=== PATIENT | female | born 1945 | race Caucasian/White ===

== ENCOUNTER → 2017-08-01 08:54 | Outpatient (CLI) | payer MEDICARE, OTHER, SELFPAY ==
[2017-08-01 10:56] LABS: Absolute Lymphocyte Count 1.67 X10^3/ul (0.83-4.51); Basophil# 0.05 X10^3/uL; Basophil% 0.9 % (0-1); Eosinophils% 3.6 % (0-5); Hematocrit 45.2 % (37-47); Hemoglobin 14.2 g/dl (12.0-15.0); Lymphocyte # 1.67 X10^3/ul (4.0); Lymphocyte % 29.9 % (19-41); Mean Corp Hgb Conc 31.4 g/gl (32-36); Mean Corpuscular Hgb 30.4 pg (27.0-32.0); Mean Corpuscular Volume 96.8 fL (81-99); Mean Platelet Vol. 11.3 fl (6.2-12.0); Monocyte# 0.61 X10^3/uL; Monocyte% 10.9 % (0-10); Neutrophil # 3.03 X10^3/uL (2.7-7.7); Neutrophil % 54.2 % (47-70); POSITIVE COUNT NO; POSITIVE DIFFERENTIAL NO; POSITIVE MORPHOLOGY NO; Platelet Count 269 K/mm3 (150-450); RBC Distribution Width CV 14.2 % (11.6-14.6); RBC Distribution Width SD 49.3 fl (35.1-43.9); Red Blood Count 4.67 M/mm3 (4.2-5.4); White Blood Count 5.6 K/mm3 (4.4-11.0)
[2017-08-01 11:07] LABS: ALB/GLOB Ratio 0.7 RATIO (0.9-2.4); AST(SGOT) 29 U/L (15-37); Alanine Aminotransfer ALT/SGPT 35 U/L (13-56); Albumin, Serum 3.2 g/dL (3.2-5.0); Alkaline Phosphatase 83 U/L (45-117); Anion Gap 9 (5-15); BUN 16 mg/dL (7-18); BUN/Creat Ratio 17.4 RATIO (10-20); Chloride 102 mmol/L (98-107); Creatinine, Serum 0.92 mg/dL (0.55-1.02); EST Glomerular Filtration Rate 64 mL/min (>60); Est Glom Filt Rate - Afr Amer 77 mL/min (>60); Globulin 4.3 g/dL (2.2-4.2); Glucose 160 mg/dL (74-106); Potassium 4.5 mmol/L (3.5-5.1); Protein, Total 7.5 g/dL (6.4-8.2); Sodium Level 140 mmol/L (136-145)
== END ==
PROVIDERS: Family Provider Family Medicine; PCP Family Medicine; Visit Provider Internal Medicine Rheumatology
DX: M06.4 Inflammatory polyarthropathy (principal); Z79.899 Other long term (current) drug therapy; M35.3 Polymyalgia rheumatica; I10 Essential (primary) hypertension; E03.9 Hypothyroidism, unspecified; J44.9 Chronic obstructive pulmonary disease, unspecified
CPT/HCPCS: 36415; 80053; 85025

== ENCOUNTER → 2017-10-08 14:45 | Outpatient (CLI) | payer MEDICARE, OTHER, SELFPAY ==
[2017-10-08 17:55] LABS: Absolute Lymphocyte Count 2.04 X10^3/ul (0.83-4.51); Absolute Neutrophil Count 4.5 X10^3/uL (2.0-7.7); Basophil# 0.04 X10^3/uL; Basophil% 0.6 % (0-1); Eosinophil# 0.19 X10^3/uL; Eosinophils% 2.6 % (0-5); Hematocrit 45.6 % (37-47); Hemoglobin 14.8 g/dl (12.0-15.0); Lymphocyte # 2.04 X10^3/ul (4.0); Lymphocyte % 28.3 % (19-41); Mean Corp Hgb Conc 32.5 g/gl (32-36); Mean Corpuscular Hgb 30.7 pg (27.0-32.0); Mean Corpuscular Volume 94.6 fL (81-99); Mean Platelet Vol. 11.9 fl (6.2-12.0); Monocyte# 0.43 X10^3/uL; Neutrophil # 4.51 X10^3/uL (2.7-7.7); Neutrophil % 62.4 % (47-70); Platelet Count 224 K/mm3 (150-450); RBC Distribution Width CV 14.1 % (11.6-14.6); RBC Distribution Width SD 47.8 fl (35.1-43.9); Red Blood Count 4.82 M/mm3 (4.2-5.4); White Blood Count 7.2 K/mm3 (4.4-11.0)
[2017-10-08 18:04] LABS: POSITIVE COUNT NO; POSITIVE DIFFERENTIAL NO; POSITIVE MORPHOLOGY NO
[2017-10-08 18:11] LABS: ALB/GLOB Ratio 0.8 RATIO (0.9-2.4); AST(SGOT) 37 U/L (15-37); Alanine Aminotransfer ALT/SGPT 50 U/L (13-56); Albumin, Serum 3.6 g/dL (3.2-5.0); Alkaline Phosphatase 93 U/L (45-117); Anion Gap 11 (5-15); BUN 16 mg/dL (7-18); Calcium,Total 9.2 mg/dL (8.5-10.1); Chloride 99 mmol/L (98-107); Creatinine, Serum 0.94 mg/dL (0.55-1.02); EST Glomerular Filtration Rate 62 mL/min (>60); Est Glom Filt Rate - Afr Amer 75 mL/min (>60); Globulin 4.7 g/dL (2.2-4.2); Glucose 167 mg/dL (74-106); Potassium 3.7 mmol/L (3.5-5.1); Protein, Total 8.3 g/dL (6.4-8.2); Sodium Level 138 mmol/L (136-145)
== END ==
PROVIDERS: Family Provider Family Medicine; PCP Family Medicine; Visit Provider Internal Medicine Rheumatology
DX: M06.4 Inflammatory polyarthropathy (principal); Z79.899 Other long term (current) drug therapy; M35.3 Polymyalgia rheumatica; I10 Essential (primary) hypertension; E03.9 Hypothyroidism, unspecified; J44.9 Chronic obstructive pulmonary disease, unspecified
CPT/HCPCS: 36415; 80053; 85025

== ENCOUNTER → 2017-10-16 10:15 | Outpatient (CLI) | payer MEDICARE, OTHER, SELFPAY ==
[2017-10-16 12:19] LABS: T4 Free Direct 1.44 ng/dL (0.76-1.46); Thyroid Stim Hormone (TSH) 0.43 uIU/mL (0.358-3.74)
== END ==
PROVIDERS: Family Provider Family Medicine; PCP Family Medicine; Visit Provider Family Medicine
DX: E03.9 Hypothyroidism, unspecified (principal)
CPT/HCPCS: 36415; 84439; 84443

== ENCOUNTER 2017-12-05 11:19 | Outpatient (RCR) | payer MEDICARE, OTHER, SELFPAY | END 2017-12-09 23:59 | LOC: DC 11:19 | PROVIDERS: Family Provider Family Medicine; PCP Family Medicine; Visit Provider Family Medicine | DX: E11.9 Type 2 diabetes mellitus without complications (principal); Z71.3 Dietary counseling and surveillance | CPT/HCPCS: 97802; G0108 ==

== ENCOUNTER → 2017-12-31 12:15 | Outpatient (CLI) | payer MEDICARE, OTHER, SELFPAY ==
[2017-12-31 15:30] LABS: ALB/GLOB Ratio 0.9 RATIO (0.9-2.4); AST(SGOT) 45 U/L (15-37); Alanine Aminotransfer ALT/SGPT 59 U/L (13-56); Albumin, Serum 3.7 g/dL (3.2-5.0); Alkaline Phosphatase 85 U/L (45-117); Anion Gap 10 (5-15); BUN 20 mg/dL (7-18); Calcium,Total 9.2 mg/dL (8.5-10.1); Chloride 100 mmol/L (98-107); Creatinine, Serum 0.91 mg/dL (0.55-1.02); EST Glomerular Filtration Rate 64 mL/min (>60); Est Glom Filt Rate - Afr Amer 78 mL/min (>60); Globulin 4.1 g/dL (2.2-4.2); Glucose 167 mg/dL (74-106); Potassium 3.9 mmol/L (3.5-5.1); Protein, Total 7.8 g/dL (6.4-8.2); Sodium Level 137 mmol/L (136-145)
[2017-12-31 15:59] LABS: Hematocrit 46.7 % (37-47); Hemoglobin 14.7 g/dl (12.0-15.0); Mean Corp Hgb Conc 31.5 g/gl (32-36); Mean Corpuscular Hgb 30.4 pg (27.0-32.0); Mean Corpuscular Volume 96.7 fL (81-99); Mean Platelet Vol. 11.5 fl (6.2-12.0); POSITIVE DIFFERENTIAL NO; Platelet Count 198 K/mm3 (150-450); RBC Distribution Width CV 13.9 % (11.6-14.6); RBC Distribution Width SD 48.8 fl (35.1-43.9); Red Blood Count 4.83 M/mm3 (4.2-5.4); White Blood Count 7.2 K/mm3 (4.4-11.0)
[2017-12-31 16:00] LABS: Absolute Lymphocyte Count 1.93 X10^3/ul (0.83-4.51); Absolute Neutrophil Count 4.3 X10^3/uL (2.0-7.7); Basophil# 0.05 X10^3/uL; Basophil% 0.7 % (0-1); Eosinophils% 4.1 % (0-5); Lymphocyte # 1.93 X10^3/ul (4.0); Lymphocyte % 26.7 % (19-41); Monocyte# 0.62 X10^3/uL; Monocyte% 8.6 % (0-10); Neutrophil # 4.32 X10^3/uL (2.7-7.7); Neutrophil % 59.8 % (47-70); POSITIVE COUNT NO; POSITIVE MORPHOLOGY NO
== END ==
PROVIDERS: Family Provider Family Medicine; PCP Family Medicine; Visit Provider Internal Medicine Rheumatology
DX: M06.4 Inflammatory polyarthropathy (principal); M35.3 Polymyalgia rheumatica; I10 Essential (primary) hypertension; E03.9 Hypothyroidism, unspecified; J44.9 Chronic obstructive pulmonary disease, unspecified; Z79.899 Other long term (current) drug therapy
CPT/HCPCS: 36415; 80053; 85025

== ENCOUNTER 2018-01-01 08:09 | Outpatient (RCR) | payer MEDICARE, OTHER, SELFPAY | END 2018-01-19 23:59 | LOC: DC 08:09 | PROVIDERS: Family Provider Family Medicine; PCP Family Medicine; Visit Provider Family Medicine | DX: E11.9 Type 2 diabetes mellitus without complications (principal); Z71.3 Dietary counseling and surveillance ==

== ENCOUNTER 2018-01-23 08:42 | Outpatient (RCR) | payer MEDICARE, OTHER, SELFPAY | END 2018-02-19 23:59 | LOC: DC 08:42 | PROVIDERS: Family Provider Family Medicine; PCP Family Medicine; Visit Provider Family Medicine | DX: E11.9 Type 2 diabetes mellitus without complications (principal); Z71.3 Dietary counseling and surveillance ==

== ENCOUNTER → 2018-02-03 10:56 | Outpatient (CLI) | payer MEDICARE, OTHER, SELFPAY ==
[2018-02-03 12:44] LABS: ALB/GLOB Ratio 0.8 RATIO (0.9-2.4); AST(SGOT) 43 U/L (15-37); Alanine Aminotransfer ALT/SGPT 46 U/L (13-56); Albumin, Serum 3.5 g/dL (3.2-5.0); Alkaline Phosphatase 84 U/L (45-117); Anion Gap 8 (5-15); BUN 20 mg/dL (7-18); BUN/Creat Ratio 21.8 RATIO (10-20); Calcium,Total 9.2 mg/dL (8.5-10.1); Chloride 101 mmol/L (98-107); Creatinine, Serum 0.92 mg/dL (0.55-1.02); EST Glomerular Filtration Rate 64 mL/min (>60); Est Glom Filt Rate - Afr Amer 77 mL/min (>60); Globulin 4.2 g/dL (2.2-4.2); Glucose 89 mg/dL (74-106); Potassium 4.1 mmol/L (3.5-5.1); Protein, Total 7.7 g/dL (6.4-8.2); Sodium Level 140 mmol/L (136-145)
== END ==
PROVIDERS: PCP Family Medicine; Visit Provider Internal Medicine Rheumatology
DX: M06.4 Inflammatory polyarthropathy (principal); Z79.899 Other long term (current) drug therapy; M35.3 Polymyalgia rheumatica; I10 Essential (primary) hypertension; E03.9 Hypothyroidism, unspecified; J44.9 Chronic obstructive pulmonary disease, unspecified
CPT/HCPCS: 36415; 80053

== ENCOUNTER 2018-02-26 09:59 | Outpatient (RCR) | payer MEDICARE, OTHER, SELFPAY | END 2018-03-21 23:59 | LOC: DC 09:59 | PROVIDERS: Family Provider Family Medicine; PCP Family Medicine; Visit Provider Family Medicine | DX: E11.9 Type 2 diabetes mellitus without complications (principal); Z71.3 Dietary counseling and surveillance ==

== ENCOUNTER → 2018-05-02 11:15 | Outpatient (CLI) | payer OTHER, SELFPAY ==
[2018-05-02 12:24] LABS: Absolute Lymphocyte Count 1.58 X10^3/ul (0.83-4.51); Absolute Neutrophil Count 5.4 X10^3/uL (2.0-7.7); Basophil# 0.04 X10^3/uL; Basophil% 0.5 % (0-1); Eosinophil# 0.29 X10^3/uL; Eosinophils% 3.6 % (0-5); Hematocrit 45.5 % (37-47); Hemoglobin 14.1 g/dl (12.0-15.0); Lymphocyte # 1.58 X10^3/ul (4.0); Lymphocyte % 19.8 % (19-41); Mean Corpuscular Hgb 30.3 pg (27.0-32.0); Mean Corpuscular Volume 97.8 fL (81-99); Mean Platelet Vol. 11.3 fl (6.2-12.0); Monocyte# 0.61 X10^3/uL; Monocyte% 7.7 % (0-10); Neutrophil # 5.43 X10^3/uL (2.7-7.7); Neutrophil % 68.1 % (47-70); Platelet Count 239 K/mm3 (150-450); RBC Distribution Width CV 14.2 % (11.6-14.6); RBC Distribution Width SD 49.3 fl (35.1-43.9); Red Blood Count 4.65 M/mm3 (4.2-5.4)
[2018-05-02 12:32] LABS: POSITIVE COUNT NO; POSITIVE DIFFERENTIAL NO; POSITIVE MORPHOLOGY NO
[2018-05-02 12:41] LABS: ALB/GLOB Ratio 0.9 RATIO (0.9-2.4); AST(SGOT) 45 U/L (15-37); Alanine Aminotransfer ALT/SGPT 55 U/L (13-56); Albumin, Serum 3.5 g/dL (3.2-5.0); Alkaline Phosphatase 85 U/L (45-117); Anion Gap 6 (5-15); BUN 17 mg/dL (7-18); BUN/Creat Ratio 18.6 RATIO (10-20); Calcium,Total 8.8 mg/dL (8.5-10.1); Chloride 100 mmol/L (98-107); Creatinine, Serum 0.91 mg/dL (0.55-1.02); EST Glomerular Filtration Rate 64 mL/min (>60); Est Glom Filt Rate - Afr Amer 78 mL/min (>60); Globulin 3.9 g/dL (2.2-4.2); Glucose 189 mg/dL (74-106); Potassium 4.4 mmol/L (3.5-5.1); Protein, Total 7.4 g/dL (6.4-8.2); Sodium Level 139 mmol/L (136-145)
== END ==
PROVIDERS: Family Provider Family Medicine; PCP Family Medicine; Visit Provider Internal Medicine Rheumatology
DX: M06.4 Inflammatory polyarthropathy (principal); Z79.899 Other long term (current) drug therapy; M35.3 Polymyalgia rheumatica; I10 Essential (primary) hypertension; E03.9 Hypothyroidism, unspecified; J44.9 Chronic obstructive pulmonary disease, unspecified
CPT/HCPCS: 36415; 80053; 85025

== ENCOUNTER → 2018-07-28 | Outpatient (CLI) | payer MEDICARE, OTHER, SELFPAY ==
[2018-07-28 12:42] LABS: Absolute Lymphocyte Count 2.21 X10^3/ul (0.83-4.51); Absolute Neutrophil Count 4.5 X10^3/uL (2.0-7.7); Basophil# 0.06 X10^3/uL; Basophil% 0.8 % (0-1); Eosinophil# 0.23 X10^3/uL; Eosinophils% 3.1 % (0-5); Hematocrit 47.4 % (37-47); Lymphocyte # 2.21 X10^3/ul (4.0); Lymphocyte % 29.3 % (19-41); Mean Corp Hgb Conc 31.6 g/gl (32-36); Mean Corpuscular Hgb 30.8 pg (27.0-32.0); Mean Corpuscular Volume 97.3 fL (81-99); Monocyte# 0.57 X10^3/uL; Monocyte% 7.6 % (0-10); Neutrophil # 4.45 X10^3/uL (2.7-7.7); Neutrophil % 59.1 % (47-70); Platelet Count 212 K/mm3 (150-450); RBC Distribution Width CV 13.7 % (11.6-14.6); RBC Distribution Width SD 48.5 fl (35.1-43.9); Red Blood Count 4.87 M/mm3 (4.2-5.4); White Blood Count 7.5 K/mm3 (4.4-11.0)
[2018-07-28 12:51] LABS: POSITIVE COUNT NO; POSITIVE DIFFERENTIAL NO; POSITIVE MORPHOLOGY NO
[2018-07-28 13:02] LABS: Hemoglobin A1c 6.9 % (4.2-6.3)
[2018-07-28 13:05] LABS: AST(SGOT) 42 U/L (15-37); Alanine Aminotransfer ALT/SGPT 63 U/L (13-56); Albumin, Serum 3.9 g/dL (3.2-5.0); Alkaline Phosphatase 89 U/L (45-117); Anion Gap 7 (5-15); BUN 20 mg/dL (7-18); BUN/Creat Ratio 24.2 RATIO (10-20); Chloride 102 mmol/L (98-107); Cholesterol 206 mg/dL (200); Creatinine, Serum 0.83 mg/dL (0.55-1.02); EST Glomerular Filtration Rate 72 mL/min (>60); Est Glom Filt Rate - Afr Amer 87 mL/min (>60); Glucose 129 mg/dL (74-106); High Density Lipoprotein 59 mg/dL; Potassium 4.3 mmol/L (3.5-5.1); Protein, Total 7.9 g/dL (6.4-8.2); Sodium Level 141 mmol/L (136-145); T4 Free Direct 1.57 ng/dL (0.76-1.46); Thyroid Stim Hormone (TSH) 0.64 uIU/mL (0.358-3.74); Triglycerides 194 mg/dL; Very Low Density Lipoprotein 39 mg/dL (5-40)
[2018-07-28 13:08] LABS: T3 Total - Triiodothyronine 0.88 ng/mL (0.6-1.81)
[2018-07-28 13:24] LABS: Microalbumin,Random Urine 5.9 mg/L (NO RANGE EST.)
== END | disposition home or self-care (01) ==
LOC: BFHLAB 09:17
PROVIDERS: Family Provider Family Medicine; PCP Family Medicine; Visit Provider Internal Medicine Rheumatology
DX: E11.9 Type 2 diabetes mellitus without complications (principal); I10 Essential (primary) hypertension; E03.9 Hypothyroidism, unspecified; M06.4 Inflammatory polyarthropathy; M35.3 Polymyalgia rheumatica; J44.9 Chronic obstructive pulmonary disease, unspecified; Z51.81 Encounter for therapeutic drug level monitoring; Z79.899 Other long term (current) drug therapy
CPT/HCPCS: 36415; 80053; 80061; 82043; 82570; 83036; 84439; 84443; 84480; 85025

== ENCOUNTER → 2018-08-25 08:27 | Outpatient (CLI) | payer MEDICARE, OTHER, SELFPAY ==
--- NOTE | 2018-08-25 08:29 | US_ITS ---
STUDY: ABDOMINAL ULTRASOUND - RIGHT UPPER QUADRANT REASON FOR VISIT: Female, 73 years old. Elevated liver enzymes. TECHNIQUE: Ultrasound evaluation of the right upper quadrant was performed with real-time and static fuchs-scale imaging. TECHNICAL QUALITY: Adequate. COMPARISON: None. FINDINGS: Liver: The liver measures 14.6 cm. There is increased echogenicity consistent with fatty infiltration. The bile ducts are within normal limits. There is hepatic color flow. The direction of portal flow is hepatopetal. There is no demonstrated mass lesion. Gallbladder: There is a 7.3 mm length echogenic nonshadowing focus within the dependent gallbladder lumen on the submitted image 94. This finding probably represents layering sludge/debris. There is also a focal, 3.4 mm, echogenic nonshadowing focus associated with the deep gallbladder wall seen on image 66. The gallbladder wall measures 2.8 mm. There is a negative sonographic Nieto's sign. There is no pericholecystic fluid. There are no gallstones. Common Bile Duct (C.B.D.): The common bile duct measures 3.8 mm. Pancreas: Normal size of the head, body and tail of the pancreas. There is normal echogenicity of the pancreas. There is no demonstrated pancreatic mass or cyst. Right Kidney: Normal size of the right kidney. The right kidney measures 10.3 x 4.8 x 3.6 cm. Normal renal cortex. The right cortex measures 1.0 cm. There is no demonstrated renal mass or cyst. There is no right hydronephrosis. US/Liver IMPRESSION: The linear echogenic nonshadowing focus within the dependent gallbladder lumen is most consistent with layering sludge/debris. Additionally, the focal 3.4 mm echogenic nonshadowing focus associated with the deep gallbladder wall may also represent dependent sludge/debris although a small polyp cannot be excluded. No sonographic criteria of acute cholecystitis. Diffuse increased hepatic echogenicity without sonographically evident discrete mass or cyst. This is a nonspecific finding, however most often due to fatty infiltration. Electronically Signed: Fady Sanz MD at 14:01 EDT , Service support ,
== END ==
PROVIDERS: Family Provider Family Medicine; PCP Family Medicine; Referring Provider Internal Medicine Rheumatology; Visit Provider Internal Medicine Rheumatology
DX: M35.3 Polymyalgia rheumatica (principal); Z79.899 Other long term (current) drug therapy; M06.4 Inflammatory polyarthropathy
CPT/HCPCS: 76705

== ENCOUNTER → 2018-08-29 10:05 | Outpatient (CLI) | payer MEDICARE, OTHER, SELFPAY ==
[2018-08-29 12:31] LABS: ALB/GLOB Ratio 0.8 RATIO (0.9-2.4); AST(SGOT) 37 U/L (15-37); Alanine Aminotransfer ALT/SGPT 60 U/L (13-56); Albumin, Serum 3.5 g/dL (3.2-5.0); Alkaline Phosphatase 89 U/L (45-117); Anion Gap 9 (5-15); BUN 28 mg/dL (7-18); BUN/Creat Ratio 27.2 RATIO (10-20); Chloride 102 mmol/L (98-107); Creatinine, Serum 1.03 mg/dL (0.55-1.02); EST Glomerular Filtration Rate 56 mL/min (>60); Est Glom Filt Rate - Afr Amer 67 mL/min (>60); Globulin 4.2 g/dL (2.2-4.2); Glucose 257 mg/dL (74-106); Potassium 3.4 mmol/L (3.5-5.1); Protein, Total 7.7 g/dL (6.4-8.2); Sodium Level 139 mmol/L (136-145)
== END ==
PROVIDERS: Family Provider Family Medicine; PCP Family Medicine; Visit Provider Internal Medicine Rheumatology
DX: M06.4 Inflammatory polyarthropathy (principal); Z79.899 Other long term (current) drug therapy; M35.3 Polymyalgia rheumatica; I10 Essential (primary) hypertension; E03.9 Hypothyroidism, unspecified; J44.9 Chronic obstructive pulmonary disease, unspecified
CPT/HCPCS: 36415; 80053

== ENCOUNTER → 2018-09-09 14:19 | Outpatient (CLI) | payer MEDICARE, OTHER, SELFPAY ==
--- NOTE | 2018-09-09 14:22 | BI_ITS ---
MAMMOGRAPHY - BILATERAL SCREENING REASON FOR EXAM: Female, 73 years old. Routine annual screening examination. PERTINENT HISTORY: Non-contributory. History of prior bilateral aspirations and stereotactic biopsy TECHNIQUE: Digital bilateral breast selena (3D mammographic acquisition) in the CC and MLO projections. 2-D mediolateral oblique (MLO) and craniocaudad (CC) views of both breasts were obtained. CAD: Full Field Digital Mammography with Computer Added Detection was performed. COMPARISON: Comparison is made with prior study dated November 24, 2015 and November 15, 2014. FINDINGS: Breast Composition: The breasts are heterogeneously dense, which may obscure small masses. There are no dominant masses or suspicious calcifications. Stable small bilateral axillary lymph nodes. No other significant abnormalities are identified. There has been no significant change since the prior study. BI/SCREENING MAMM (CAD), BILAT IMPRESSION: Stable bilateral screening mammogram. Yearly follow-up mammogram recommended. (A) ASSESSMENT CATEGORY: BIRADS Category 2: Benign. A letter regarding these results will be sent to the patient by the facility within 30 days. Approximately 10% of breast cancers are not detected by mammography. A normal mammogram should not delay biopsy of a clinically suspicious abnormality. [id number] Electronically Signed: Terrell Mars, at 7:54 EDT , Service support ,
--- NOTE | 2018-09-09 14:25 | BD_ITS ---
STUDY: DUAL ENERGY X-RAY ABSORPTIOMETRY / DXA REASON FOR EXAM: Female, 73 years old. Early menopause. Loss of height. TECHNIQUE: Bone Mineral Density (BMD) measurements of lumbar spine and bilateral hips were obtained. COMPARISON: Comparison is made with prior study dated April 19, 2015. FINDINGS: Lumbar Spine (L1-L4): g/cm2 (1.089) / T-score (-0.7) / Z-score (1.1) Findings are suggestive of normal bone density with a low fracture risk. Left Femur Total: g/cm2 (0.955) / T-score (-0.4) / Z-score (1.3) Left Femoral Neck: g/cm2 (0.911) / T-score (-0.9) / Z-score (1.0) Right Femur Total: g/cm2 (0.937) / T-score (-0.6) / Z-score (1.1) Right Femoral Neck: g/cm2 (0.857) / T-score (-1.3) / Z-score (0.6) The T-Scores on the most recent prior examination were: Lumbar Spine (L1-L4): There has been worsening of bone density since the previous examination. Left Femur Total: which represents a worsening of 4.9%. Right Femur Total: which represents a worsening of 8%. BD/Dexa Bone Density Study IMPRESSION: The patient is considered osteopenic as outlined below according to World Stephan Organization (WHO) criteria with a low fracture risk. There has been worsening of bone density since the previous examination. Reference Information: The T-score is the number of standard deviations above or below the standard which is normal for young adults at their peak bone mineral density. The World Health Organization (WHO) interprets the T-scores as follows: Above -1 Normal bone density Between -1 and -2.5 Osteopenia Equal to / or below -2.5 Osteoporosis As a practical clinical guideline, osteopenia may be graded as follows: Mild -1 through -1.5 Moderate -1.6 through -2.0 Severe -2.1 through -2.4 The Z-score is the number of standard deviations above or below age-matched controls. A Z-score of less than -1.5 would be considered abnormal. References: 1. NIH Osteoporosis and Related Bone Diseases http://www.osteo.org 2. International Society for Clinical Densitometry http://www.iscd.org 3. National Osteoporosis Foundation http://www.nof.org Electronically Signed: Terrell Mars, at 15:07 EDT , Service support ,
== END ==
PROVIDERS: Family Provider Family Medicine; PCP Family Medicine; Referring Provider Family Medicine; Visit Provider Family Medicine
DX: Z12.31 Encounter for screening mammogram for malignant neoplasm of breast (principal); Z78.0 Asymptomatic menopausal state; Z13.820 Encounter for screening for osteoporosis
CPT/HCPCS: 77063; 77067; 77080

== ENCOUNTER → 2018-12-01 09:19 | Outpatient (CLI) | payer MEDICARE, OTHER, SELFPAY ==
[2018-12-01 12:30] LABS: Absolute Lymphocyte Count 1.76 X10^3/uL (0.83-4.51); Absolute Neutrophil Count 3.4 X10^3/uL (2.0-7.7); Basophil# 0.07 X10^3/uL; Basophil% 1.2 % (0-1); Eosinophil# 0.15 X10^3/uL; Eosinophils% 2.5 % (0-5); Hematocrit 46.6 % (37-47); Hemoglobin 14.8 g/dL (12.0-15.0); Lymphocyte # 1.76 X10^3/ul (4.0); Lymphocyte % 29.3 % (19-41); Mean Corp Hgb Conc 31.8 g/dL (32-36); Mean Corpuscular Hgb 29.3 pg (27.0-32.0); Mean Corpuscular Volume 92.3 fL (81-99); Mean Platelet Vol. 12.3 fl (6.2-12.0); Monocyte# 0.56 X10^3/uL; Monocyte% 9.3 % (0-10); NRBC Flagged by Analyzer 0 % (0-5); Neutrophil # 3.44 X10^3/uL (2.7-7.7); Neutrophil % 57.4 % (47-70); Platelet Count 196 K/mm3 (150-450); RBC Distribution Width CV 12.8 % (11.6-14.6); RBC Distribution Width SD 43.4 fl (35.1-43.9); Red Blood Count 5.05 M/mm3 (4.2-5.4)
[2018-12-01 12:59] LABS: AST(SGOT) 25 U/L (15-37); Alanine Aminotransfer ALT/SGPT 27 U/L (13-56); Albumin, Serum 3.9 g/dL (3.2-5.0); Alkaline Phosphatase 79 U/L (45-117); Anion Gap 7 (5-15); BUN 15 mg/dL (7-18); BUN/Creat Ratio 16.2 RATIO (10-20); Chloride 103 mmol/L (98-107); Creatinine, Serum 0.93 mg/dL (0.55-1.02); EST Glomerular Filtration Rate 63 mL/min (>60); Est Glom Filt Rate - Afr Amer 76 mL/min (>60); Globulin 3.9 g/dL (2.2-4.2); Glucose 93 mg/dL (74-106); Potassium 3.4 mmol/L (3.5-5.1); Protein, Total 7.8 g/dL (6.4-8.2); Sodium Level 138 mmol/L (136-145)
== END ==
PROVIDERS: PCP Family Medicine; Visit Provider Internal Medicine Rheumatology
DX: M06.4 Inflammatory polyarthropathy (principal); Z79.899 Other long term (current) drug therapy; M35.3 Polymyalgia rheumatica; I10 Essential (primary) hypertension; E03.9 Hypothyroidism, unspecified; J44.9 Chronic obstructive pulmonary disease, unspecified
CPT/HCPCS: 36415; 80053; 85025

== ENCOUNTER → 2019-02-26 14:00 | Outpatient (CLI) | payer MEDICARE, OTHER, SELFPAY ==
[2019-02-26 15:40] LABS: Absolute Lymphocyte Count 2.23 X10^3/uL (0.83-4.51); Absolute Neutrophil Count 4.5 X10^3/uL (2.0-7.7); Basophil# 0.09 X10^3/uL; Basophil% 1.2 % (0-1); Eosinophil# 0.27 X10^3/uL; Eosinophils% 3.5 % (0-5); Hemoglobin 15.2 g/dL (12.0-15.0); Lymphocyte # 2.23 X10^3/ul (4.0); Lymphocyte % 28.8 % (19-41); Mean Corp Hgb Conc 31.7 g/dL (32-36); Mean Corpuscular Hgb 29.2 pg (27.0-32.0); Mean Corpuscular Volume 92.3 fL (81-99); Mean Platelet Vol. 11.7 fl (6.2-12.0); Monocyte% 7.8 % (0-10); NRBC Flagged by Analyzer 0 % (0-5); Neutrophil # 4.52 X10^3/uL (2.7-7.7); Neutrophil % 58.3 % (47-70); Platelet Count 230 K/mm3 (150-450); RBC Distribution Width CV 13.2 % (11.6-14.6); RBC Distribution Width SD 44.3 fl (35.1-43.9); White Blood Count 7.7 K/mm3 (4.4-11.0)
[2019-02-26 15:59] LABS: ALB/GLOB Ratio 0.9 RATIO (0.9-2.4); AST(SGOT) 21 U/L (15-37); Alanine Aminotransfer ALT/SGPT 26 U/L (13-56); Alkaline Phosphatase 75 U/L (45-117); Anion Gap 8 (5-15); BUN 25 mg/dL (7-18); BUN/Creat Ratio 25.3 RATIO (10-20); Calcium,Total 9.3 mg/dL (8.5-10.1); Chloride 100 mmol/L (98-107); Creatinine, Serum 0.99 mg/dL (0.55-1.02); EST Glomerular Filtration Rate 58 mL/min (>60); Est Glom Filt Rate - Afr Amer 71 mL/min (>60); Globulin 4.3 g/dL (2.2-4.2); Glucose 88 mg/dL (74-106); Potassium 3.5 mmol/L (3.5-5.1); Protein, Total 8.3 g/dL (6.4-8.2); Sodium Level 139 mmol/L (136-145)
== END ==
PROVIDERS: Family Provider Family Medicine; PCP Family Medicine; Visit Provider Internal Medicine Rheumatology
DX: M06.4 Inflammatory polyarthropathy (principal); M35.3 Polymyalgia rheumatica; K76.0 Fatty (change of) liver, not elsewhere classified; I10 Essential (primary) hypertension; E03.9 Hypothyroidism, unspecified; J44.9 Chronic obstructive pulmonary disease, unspecified
CPT/HCPCS: 36415; 80053; 85025

== ENCOUNTER → 2019-08-21 09:35 | Outpatient (CLI) | payer MEDICARE, OTHER, SELFPAY ==
[2019-08-21 12:55] LABS: Absolute Lymphocyte Count 1.73 X10^3/uL (0.83-4.51); Absolute Neutrophil Count 4.2 X10^3/uL (2.0-7.7); Basophil# 0.07 X10^3/uL; Eosinophils% 2.9 % (0-5); Hematocrit 49.2 % (37-47); Hemoglobin 15.3 g/dL (12.0-15.0); Lymphocyte # 1.73 X10^3/ul (4.0); Lymphocyte % 25.2 % (19-41); Mean Corp Hgb Conc 31.1 g/dL (32-36); Mean Corpuscular Hgb 28.5 pg (27.0-32.0); Mean Corpuscular Volume 91.6 fL (81-99); Mean Platelet Vol. 12.2 fl (6.2-12.0); Monocyte% 8.7 % (0-10); NRBC Flagged by Analyzer 0 % (0-5); Neutrophil # 4.24 X10^3/uL (2.7-7.7); Neutrophil % 61.8 % (47-70); Platelet Count 194 K/mm3 (150-450); RBC Distribution Width CV 13.2 % (11.6-14.6); Red Blood Count 5.37 M/mm3 (4.2-5.4); White Blood Count 6.9 K/mm3 (4.4-11.0)
[2019-08-21 13:11] LABS: ALB/GLOB Ratio 0.9 RATIO (0.9-2.4); AST(SGOT) 18 U/L (15-37); Alanine Aminotransfer ALT/SGPT 24 U/L (13-56); Albumin, Serum 3.7 g/dL (3.2-5.0); Alkaline Phosphatase 76 U/L (45-117); Anion Gap 6 (5-15); BUN 18 mg/dL (7-18); BUN/Creat Ratio 21.2 RATIO (10-20); Calcium,Total 9.3 mg/dL (8.5-10.1); Chloride 101 mmol/L (98-107); Creatinine, Serum 0.85 mg/dL (0.55-1.02); EST Glomerular Filtration Rate 69 mL/min (>60); Est Glom Filt Rate - Afr Amer 84 mL/min (>60); Globulin 4.1 g/dL (2.2-4.2); Glucose 97 mg/dL (74-106); Potassium 3.6 mmol/L (3.5-5.1); Protein, Total 7.8 g/dL (6.4-8.2); Sodium Level 137 mmol/L (136-145)
== END ==
PROVIDERS: PCP Family Medicine; Referring Provider Internal Medicine Rheumatology; Visit Provider Internal Medicine Rheumatology
DX: M06.4 Inflammatory polyarthropathy (principal); M35.3 Polymyalgia rheumatica; K76.0 Fatty (change of) liver, not elsewhere classified; I10 Essential (primary) hypertension; E03.9 Hypothyroidism, unspecified; J44.9 Chronic obstructive pulmonary disease, unspecified; M65.819 Other synovitis and tenosynovitis, unspecified shoulder
CPT/HCPCS: 36415; 80053; 85025

== ENCOUNTER → 2019-09-03 10:07 | Outpatient (CLI) | payer MEDICARE, OTHER, SELFPAY | PROVIDERS: PCP Family Medicine; Visit Provider Family Medicine | DX: N39.0 Urinary tract infection, site not specified (principal) | CPT/HCPCS: 87086; 87088 ==

== ENCOUNTER → 2019-09-23 08:41 | Outpatient (CLI) | payer MEDICARE, OTHER, SELFPAY ==
[2019-09-23 12:42] LABS: Absolute Lymphocyte Count 1.73 X10^3/uL (0.83-4.51); Absolute Neutrophil Count 3.3 X10^3/uL (2.0-7.7); Basophil# 0.06 X10^3/uL; Eosinophil# 0.21 X10^3/uL; Eosinophils% 3.6 % (0-5); Hemoglobin 15.2 g/dL (12.0-15.0); Lymphocyte # 1.73 X10^3/ul (4.0); Lymphocyte % 29.7 % (19-41); Mean Corpuscular Hgb 29.3 pg (27.0-32.0); Mean Corpuscular Volume 94.4 fL (81-99); Mean Platelet Vol. 12.4 fl (6.2-12.0); Monocyte# 0.53 X10^3/uL; Monocyte% 9.1 % (0-10); NRBC Flagged by Analyzer 0 % (0-5); Neutrophil # 3.28 X10^3/uL (2.7-7.7); Neutrophil % 56.4 % (47-70); Platelet Count 179 K/mm3 (150-450); RBC Distribution Width CV 13.2 % (11.6-14.6); RBC Distribution Width SD 46.1 fl (35.1-43.9); Red Blood Count 5.19 M/mm3 (4.2-5.4); White Blood Count 5.8 K/mm3 (4.4-11.0)
[2019-09-23 12:54] LABS: Hemoglobin A1c 5.7 % (3.8-5.6)
[2019-09-23 12:56] LABS: ALB/GLOB Ratio 0.9 RATIO (0.9-2.4); AST(SGOT) 20 U/L (15-37); Alanine Aminotransfer ALT/SGPT 25 U/L (13-56); Albumin, Serum 3.9 g/dL (3.2-5.0); Alkaline Phosphatase 70 U/L (45-117); Anion Gap 6 (5-15); BUN 19 mg/dL (7-18); BUN/Creat Ratio 19.8 RATIO (10-20); Calcium,Total 9.1 mg/dL (8.5-10.1); Chloride 102 mmol/L (98-107); Cholesterol 199 mg/dL (200); Creatinine, Serum 0.96 mg/dL (0.55-1.02); EST Glomerular Filtration Rate 60 mL/min (>60); Est Glom Filt Rate - Afr Amer 73 mL/min (>60); Globulin 4.5 g/dL (2.2-4.2); Glucose 107 mg/dL (74-106); High Density Lipoprotein 65 mg/dL; Potassium 4.2 mmol/L (3.5-5.1); Protein, Total 8.4 g/dL (6.4-8.2); Sodium Level 139 mmol/L (136-145); Thyroid Stim Hormone (TSH) 1.89 uIU/mL (0.358-3.74); Triglycerides 178 mg/dL; Very Low Density Lipoprotein 36 mg/dL (5-40)
[2019-09-23 13:15] LABS: Microalbumin,Random Urine 56.4 mg/L (NO RANGE EST.); Microalbumin:Creatinine Ratio 31.9 mg/g CRE (<30 mg/g CRE)
== END ==
PROVIDERS: PCP Family Medicine; Visit Provider Family Medicine
DX: E11.9 Type 2 diabetes mellitus without complications (principal); E03.9 Hypothyroidism, unspecified; I10 Essential (primary) hypertension; M06.9 Rheumatoid arthritis, unspecified
CPT/HCPCS: 36415; 80053; 80061; 82043; 82570; 83036; 84443; 85025

== ENCOUNTER → 2019-10-08 11:18 | Outpatient (CLI) | payer MEDICARE, OTHER, SELFPAY ==
--- NOTE | 2019-10-08 11:20 | BI_ITS ---
MAMMOGRAPHY - BILATERAL SCREENING REASON FOR EXAM: Female, 74 years old. Routine annual screening examination. PERTINENT HISTORY: Non-contributory. TECHNIQUE: Digital bilateral breast bharathi (3D mammographic acquisition) in the CC and MLO projections. 2-D mediolateral oblique (MLO) and craniocaudad (CC) views of both breasts were obtained. CAD: Full Field Digital Mammography with Computer Added Detection was performed. COMPARISON: Comparison is made with prior study dated September 09, 2018 and November 24, 2015. FINDINGS: Breast Composition: The breasts are heterogeneously dense, which may obscure small masses. There are no dominant masses or suspicious calcifications. Stable small benign-appearing bilateral axillary lymph nodes. No other significant abnormalities are identified. There has been no significant change since the prior study. BI/SCREEN MAMM (CAD) W/BHARATHI BILAT IMPRESSION: Stable bilateral screening mammogram. Yearly follow-up mammogram recommended. (A) ASSESSMENT CATEGORY: BIRADS Category 2: Benign. A letter regarding these results will be sent to the patient by the facility within 30 days. Approximately 10% of breast cancers are not detected by mammography. A normal mammogram should not delay biopsy of a clinically suspicious abnormality. [id number] Electronically Signed: Terrell Mars, at 12:27 EDT , Service support ,
== END ==
PROVIDERS: PCP Family Medicine; Referring Provider Family Medicine; Visit Provider Family Medicine
DX: Z12.31 Encounter for screening mammogram for malignant neoplasm of breast (principal)
CPT/HCPCS: 77063; 77067

== ENCOUNTER → 2020-01-15 08:49 | Outpatient (CLI) | payer MEDICARE, OTHER, SELFPAY ==
[2020-01-15 12:18] LABS: Uric Acid 8.2 mg/dL (2.6-6.0)
== END ==
PROVIDERS: PCP Family Medicine; Visit Provider Family Medicine
DX: M10.9 Gout, unspecified (principal)
CPT/HCPCS: 36415; 84550

== ENCOUNTER → 2020-01-29 10:09 | Outpatient (CLI) | payer MEDICARE, OTHER, SELFPAY ==
[2020-01-29 12:41] LABS: Uric Acid 6.7 mg/dL (2.6-6.0)
== END ==
PROVIDERS: PCP Family Medicine; Visit Provider Family Medicine
DX: M10.9 Gout, unspecified (principal); Z51.81 Encounter for therapeutic drug level monitoring
CPT/HCPCS: 36415; 84550

== ENCOUNTER → 2020-02-22 09:15 | Outpatient (CLI) | payer MEDICARE, OTHER, SELFPAY ==
[2020-02-22 12:44] LABS: ALB/GLOB Ratio 0.9 RATIO (0.9-2.4); AST(SGOT) 22 U/L (15-37); Absolute Lymphocyte Count 1.43 X10^3/uL (0.83-4.51); Absolute Neutrophil Count 3.2 X10^3/uL (2.0-7.7); Alanine Aminotransfer ALT/SGPT 24 U/L (13-56); Albumin, Serum 3.8 g/dL (3.2-5.0); Alkaline Phosphatase 72 U/L (45-117); Anion Gap 6 (5-15); BUN 23 mg/dL (7-18); BUN/Creat Ratio 22.8 RATIO (10-20); Basophil# 0.07 X10^3/uL; Basophil% 1.3 % (0-1); Calcium,Total 9.7 mg/dL (8.5-10.1); Chloride 105 mmol/L (98-107); Creatinine, Serum 1.01 mg/dL (0.55-1.02); EST Glomerular Filtration Rate 57 mL/min (>60); Eosinophil# 0.26 X10^3/uL; Eosinophils% 4.8 % (0-5); Est Glom Filt Rate - Afr Amer 69 mL/min (>60); Globulin 4.2 g/dL (2.2-4.2); Glucose 111 mg/dL (74-106); Hematocrit 46.7 % (37-47); Hemoglobin 14.2 g/dL (12.0-15.0); Lymphocyte # 1.43 X10^3/ul (4.0); Lymphocyte % 26.2 % (19-41); Mean Corp Hgb Conc 30.4 g/dL (32-36); Mean Corpuscular Hgb 28.9 pg (27.0-32.0); Mean Corpuscular Volume 95.1 fL (81-99); Mean Platelet Vol. 12.7 fl (6.2-12.0); Monocyte# 0.49 X10^3/uL; NRBC Flagged by Analyzer 0 % (0-5); Neutrophil # 3.19 X10^3/uL (2.7-7.7); Neutrophil % 58.3 % (47-70); Platelet Count 188 K/mm3 (150-450); Potassium 4.3 mmol/L (3.5-5.1); RBC Distribution Width CV 13.3 % (11.6-14.6); RBC Distribution Width SD 46.7 fl (35.1-43.9); Red Blood Count 4.91 M/mm3 (4.2-5.4); Sodium Level 139 mmol/L (136-145); White Blood Count 5.5 K/mm3 (4.4-11.0)
== END ==
PROVIDERS: PCP Family Medicine; Visit Provider Internal Medicine Rheumatology
DX: M06.4 Inflammatory polyarthropathy (principal); M35.3 Polymyalgia rheumatica; K76.0 Fatty (change of) liver, not elsewhere classified; I10 Essential (primary) hypertension; E03.9 Hypothyroidism, unspecified; J44.9 Chronic obstructive pulmonary disease, unspecified
CPT/HCPCS: 36415; 80053; 85025

== ENCOUNTER → 2020-06-15 11:14 | Outpatient (CLI) | payer MEDICARE, OTHER, SELFPAY ==
[2020-06-15 15:12] LABS: Absolute Lymphocyte Count 0.62 X10^3/uL (0.83-4.51); Absolute Neutrophil Count 8.3 X10^3/uL (2.0-7.7); Basophil# 0.06 X10^3/uL; Basophil% 0.7 % (0-1); Eosinophil# 0.01 X10^3/uL; Eosinophils% 0.1 % (0-5); Hematocrit 46.6 % (37-47); Hemoglobin 14.5 g/dL (12.0-15.0); Lymphocyte # 0.62 X10^3/ul (4.0); Lymphocyte % 6.7 % (19-41); Mean Corp Hgb Conc 31.1 g/dL (32-36); Mean Corpuscular Hgb 29.1 pg (27.0-32.0); Mean Corpuscular Volume 93.4 fL (81-99); Mean Platelet Vol. 12.4 fl (6.2-12.0); Monocyte# 0.25 X10^3/uL; Monocyte% 2.7 % (0-10); NRBC Flagged by Analyzer 0 % (0-5); Neutrophil # 8.26 X10^3/uL (2.7-7.7); Neutrophil % 89.5 % (47-70); Platelet Count 223 K/mm3 (150-450); RBC Distribution Width CV 13.4 % (11.6-14.6); RBC Distribution Width SD 46.2 fl (35.1-43.9); Red Blood Count 4.99 M/mm3 (4.2-5.4); White Blood Count 9.2 K/mm3 (4.4-11.0)
[2020-06-15 15:18] LABS: AST(SGOT) 17 U/L (15-37); Alanine Aminotransfer ALT/SGPT 28 U/L (13-56); Albumin, Serum 4.2 g/dL (3.2-5.0); Alkaline Phosphatase 76 U/L (45-117); Anion Gap 8 (5-15); BUN 28 mg/dL (7-18); Calcium,Total 9.8 mg/dL (8.5-10.1); Chloride 102 mmol/L (98-107); Creatinine, Serum 0.97 mg/dL (0.55-1.02); EST Glomerular Filtration Rate 60 mL/min (>60); Est Glom Filt Rate - Afr Amer 72 mL/min (>60); Globulin 4.4 g/dL (2.2-4.2); Glucose 123 mg/dL (74-106); Potassium 4.1 mmol/L (3.5-5.1); Protein, Total 8.6 g/dL (6.4-8.2); Sodium Level 138 mmol/L (136-145); Uric Acid 6.6 mg/dL (2.6-6.0)
== END ==
PROVIDERS: PCP Family Medicine; Visit Provider Family Medicine
DX: Z51.81 Encounter for therapeutic drug level monitoring (principal); M10.9 Gout, unspecified; E11.9 Type 2 diabetes mellitus without complications
CPT/HCPCS: 36415; 80053; 84550; 85025

== ENCOUNTER → 2020-08-19 10:17 | Outpatient (CLI) | payer MEDICARE, OTHER, SELFPAY ==
[2020-08-19 12:36] LABS: Absolute Lymphocyte Count 1.72 X10^3/uL (0.83-4.51); Absolute Neutrophil Count 3.3 X10^3/uL (2.0-7.7); Basophil# 0.09 X10^3/uL; Basophil% 1.5 % (0-1); Eosinophil# 0.24 X10^3/uL; Eosinophils% 4.1 % (0-5); Hematocrit 46.1 % (37-47); Hemoglobin 14.3 g/dL (12.0-15.0); Lymphocyte # 1.72 X10^3/ul (0.83-4.51); Lymphocyte % 29.1 % (19-41); Mean Corpuscular Hgb 29.2 pg (27.0-32.0); Mean Corpuscular Volume 94.3 fL (81-99); Mean Platelet Vol. 12.2 fl (6.2-12.0); Monocyte# 0.54 X10^3/uL; Monocyte% 9.1 % (0-10); NRBC Flagged by Analyzer 0 % (0-5); Neutrophil % 55.9 % (47-70); Platelet Count 209 K/mm3 (150-450); RBC Distribution Width CV 13.6 % (11.6-14.6); RBC Distribution Width SD 47.8 fl (35.1-43.9); Red Blood Count 4.89 M/mm3 (4.2-5.4); White Blood Count 5.9 K/mm3 (4.4-11.0)
[2020-08-19 12:53] LABS: ALB/GLOB Ratio 1.1 RATIO (0.9-2.4); AST(SGOT) 21 U/L (15-37); Alanine Aminotransfer ALT/SGPT 28 U/L (13-56); Albumin, Serum 4.2 g/dL (3.2-5.0); Alkaline Phosphatase 74 U/L (45-117); Anion Gap 6 (5-15); BUN 21 mg/dL (7-18); BUN/Creat Ratio 23.3 RATIO (10-20); Calcium,Total 9.4 mg/dL (8.5-10.1); Chloride 101 mmol/L (98-107); EST Glomerular Filtration Rate 65 mL/min (>60); Est Glom Filt Rate - Afr Amer 78 mL/min (>60); Globulin 3.9 g/dL (2.2-4.2); Glucose 108 mg/dL (74-106); Potassium 3.9 mmol/L (3.5-5.1); Protein, Total 8.1 g/dL (6.4-8.2); Sodium Level 137 mmol/L (136-145); Uric Acid 4.7 mg/dL (2.6-6.0)
== END ==
PROVIDERS: PCP Family Medicine; Referring Provider Internal Medicine Rheumatology; Visit Provider Internal Medicine Rheumatology
DX: M06.4 Inflammatory polyarthropathy (principal); M35.3 Polymyalgia rheumatica; K76.0 Fatty (change of) liver, not elsewhere classified; I10 Essential (primary) hypertension; E03.9 Hypothyroidism, unspecified; J44.9 Chronic obstructive pulmonary disease, unspecified
CPT/HCPCS: 36415; 80053; 84550; 85025

== ENCOUNTER → 2020-08-29 14:08 | Outpatient (CLI) | payer MEDICARE, OTHER, SELFPAY ==
[2020-08-29 15:35] LABS: D-Dimer Quantitative (DVT/PE) <= 0.27 FEU/ug/m (0.27-0.49)
[2020-08-29 15:36] LABS: Hemoglobin A1c 5.7 % (3.8-5.6)
== END ==
PROVIDERS: PCP Family Medicine; Referring Provider Family Medicine; Visit Provider Family Medicine
DX: E11.9 Type 2 diabetes mellitus without complications (principal); R06.00 Dyspnea, unspecified
CPT/HCPCS: 36415; 83036; 85379

== ENCOUNTER → 2020-09-02 12:30 | Outpatient (CLI) | payer MEDICARE, OTHER, SELFPAY ==
--- NOTE | 2020-09-02 12:33 | RAD_ITS ---
STUDY: X-RAY CHEST REASON FOR EXAM: Female, 75 years old. DYSPNEA ON EXERTION TECHNIQUE: PA and lateral views of the chest. COMPARISON: None. FINDINGS: The lungs are clear and expanded. There is no demonstrated pleural abnormality. Normal size heart. Normal mediastinum and jamia. Normal visualized pulmonary arteries. Normal visualized aortic arch and descending thoracic aorta. Normal visualized thoracic spine. Normal visualized ribs, clavicles, and shoulders. There is no demonstrated abnormality of the visualized soft tissue structures of the upper abdomen. RAD/Chest PA and Lateral IMPRESSION: Normal x-ray examination of the chest. Electronically Signed: Leo Alarcon DO at 23:27 EDT Tel , Service support ,
== END ==
PROVIDERS: PCP Family Medicine; Referring Provider Family Medicine; Visit Provider Family Medicine
DX: R06.00 Dyspnea, unspecified (principal)
CPT/HCPCS: 71046

== ENCOUNTER → 2020-09-13 10:24 | Outpatient (CLI) | payer MEDICARE, OTHER, SELFPAY ==
--- NOTE | 2020-09-13 10:26 | STEWCON_ITS ---
Reason For Study: Chest Pain; DE LA GARZA Stress Results Protocol: Ramesh Protocol WITH DEFINITY Maximum Predicted HR: 144 bpm Target HR: 122 bpm % Maximum Predicted HR: 105 % DurationHeart Rate Stage (mm:ss) (bpm) BP Comment Baseline 84 132/80No Chest Pain; 4 ML Diluted Definity Ramesh Protocol Stage I 3:00 146 162/78No Chest Pain; Mod Dyspnea Ramesh Protocol Stage II 0:30 151 / No Chest Pain; Mod to Severe Dyspnea Recovery 93 124/78No Chest Pain; No Dyspnea Stress Duration: 3:30 mm:ss Maximum Stress HR: 151 bpm METS: 5 Baseline Echocardiogram Findings Stress Echo Wall motion Data Resting WM Intermediate WM Stress WM Resting Wall Motion Wall Motion Stress All segments Normal. Anterio-Basal: Hyperkinetic. Ejection Fraction 55 %. Lateral-Basal: Hyperkinetic. Posterior-Basal: Hyperkinetic. Infero-Basal: Hyperkinetic. Basal inferoseptal: Hyperkinetic. Basal anteroseptal: Hyperkinetic. Mid-Anterior : Hypokinetic. Mid-Lateral : Hypokinetic. Mid-Posterior: Hyperkinetic. Mid-Inferior: Hyperkinetic. Mid-inferoseptal : Hyperkinetic. Mid-anteroseptal : Hyperkinetic. Anterior [place] : Hypokinetic. Inferior [place] : Hyperkinetic. Lateral [place] : Hypokinetic. Septall [place] : Hyperkinetic. Ejection Fraction 55 %. Stress Results Heart rate response: Appropriate Blood pressure response: Normal resting blood pressure-appropriate response Arrhythmias: Isolated PVC during pretest and rare PVC during recovery Functional capacity: Decreased Stopped secondary to: Dyspnea. EKG Data Baseline ECG: Sinus rhythm. Peak exercise ECG: Somatic/motion artifact with no obvious ECG changes. Symptoms with Stress No chest discomfort during exercise or recovery. ECHO/Stress Test Echo W/Contrast Interpretation Summary Contrast injection performed Positive (technically adequate: Percent predicted maximal heart rate greater th an 85%) stress echocardiogram Ordering Physician: Saulo Arenas Referring Physician: Malcolm Forte Performed By: Bonita Yun, RDCS, RVT
== END ==
PROVIDERS: PCP Family Medicine; Referring Provider Family Medicine; Visit Provider Family Medicine
DX: R06.00 Dyspnea, unspecified (principal)
CPT/HCPCS: 93017; 93350; Q9957; A4216; C8928; J3490

== ENCOUNTER → 2020-10-31 08:44 | Outpatient (CLI) | payer MEDICARE, OTHER, SELFPAY ==
[2020-10-20 09:30] VITALS: BMI 31.0
[2020-10-31 10:21] LABS: Absolute Lymphocyte Count 1.95 X10^3/uL (0.83-4.51); Absolute Neutrophil Count 4.9 X10^3/uL (2.0-7.7); Basophil# 0.08 X10^3/uL; Eosinophil# 0.21 X10^3/uL; Eosinophils% 2.7 % (0-5); Hematocrit 46.3 % (37-47); Hemoglobin 14.4 g/dL (12.0-15.0); Lymphocyte # 1.95 X10^3/ul (0.83-4.51); Lymphocyte % 25.2 % (19-41); Mean Corp Hgb Conc 31.1 g/dL (32-36); Mean Corpuscular Hgb 29.2 pg (27.0-32.0); Mean Corpuscular Volume 93.9 fL (81-99); Mean Platelet Vol. 11.6 fl (6.2-12.0); Monocyte# 0.61 X10^3/uL; Monocyte% 7.9 % (0-10); NRBC Flagged by Analyzer 0 % (0-5); Neutrophil # 4.87 X10^3/uL (2.7-7.7); Neutrophil % 62.9 % (47-70); Platelet Count 252 K/mm3 (150-450); RBC Distribution Width CV 13.4 % (11.6-14.6); RBC Distribution Width SD 46.3 fl (35.1-43.9); Red Blood Count 4.93 M/mm3 (4.2-5.4); White Blood Count 7.7 K/mm3 (4.4-11.0)
[2020-10-31 10:30] LABS: Partial Thromboplast Time 31.3 Seconds (24.1-36.2)
[2020-10-31 10:50] LABS: Anion Gap 8 (5-15); BUN 23 mg/dL (7-18); BUN/Creat Ratio 25.7 RATIO (10-20); Calcium,Total 9.2 mg/dL (8.5-10.1); Chloride 101 mmol/L (98-107); EST Glomerular Filtration Rate 65 mL/min (>60); Est Glom Filt Rate - Afr Amer 79 mL/min (>60); Glucose 110 mg/dL (74-106); Potassium 3.6 mmol/L (3.5-5.1); Sodium Level 139 mmol/L (136-145)
== END ==
PROVIDERS: PCP Family Medicine; Referring Provider Internal Medicine Cardiovascular Disease; Visit Provider Internal Medicine Cardiovascular Disease
DX: R06.02 Shortness of breath (principal); R94.39 Abnormal result of other cardiovascular function study; I10 Essential (primary) hypertension; E11.9 Type 2 diabetes mellitus without complications
CPT/HCPCS: 36415; 80048; 85025; 85610; 85730

== ENCOUNTER 2020-11-15 07:54 | Day surgery (SDC) | payer MEDICARE, OTHER, SELFPAY ==
[2020-10-20 09:30] VITALS: BMI 31.0
--- NOTE | 2020-11-07 08:44 | PCM.HP.BLA ---
History and Physical Date of Admission: 11/15/20 [facility] [id number] [place], [place] [id number] OFFICE VISITDate of Service: 10/20/20 MR#:[id number]: SHIRA CHEW #:[id number]:[id number] Provider:Anabel Cox/Sex: 75/F Location:[facility]:Signed HPI HPI History of Present Illness Surgical H&P: Yes Details: This is a 75-year-old white female who is referred for evaluation of shortness of breath/dyspnea on exertion superimposed upon an abnormal stress echocardiogram suggesting stress-induced hypokinesis of the anterior, anteroapical, and lateral apical segments superimposed upon hypertension. She notes that over the last several weeks, as the weather has improved and she has become more active, she has felt somewhat more short of breath and dyspneic with walking and/or pushing her push mower. She does not complain of simultaneous chest discomfort. There is been no associated nausea, emesis, or diaphoresis. She denies orthopnea, PND, peripheral pitting edema. There has been no near syncope or syncope. She has had a remote transthoracic echocardiogram in 2016. She had a recent stress echocardiogram as noted below. She had an ECG in the office today. She was noted to be in sinus rhythm with no acute ECG changes. She also had a chest x-ray performed recently. Per the radiology report it was reported as unremarkable. Intake Vital Signs 10/20/20 09:30 Height 5 ft 5 in Weight: 186 lb 8 oz BMI 31.0 BP 138/82 H Blood Pressure Location Lt brachial Position Sitting Respiration 16 Pulse 76 Pulse Source Auscultation Intake Visit Reasons: SOB/Ref. Deepa Sexual Assault Counsellor Required: No Accompanied by: Self Allergies amoxicillin Adverse Reaction (Verified 10/20/20 09:31) GI upset, Nausea and vomiting Medications calcium carbonate-vitamin D3 1 ea PO DAILY 04/30/15 [History Confirmed 10/20/20] gabapentin 100 mg PO BID 04/30/15 [History Confirmed 10/20/20] multivitamin [Daily Multiple Vitamin] 1 ea PO DAILY 01/09/16 [History Confirmed 10/20/20] triamterene-hydrochlorothiazid 1 cap PO DAILY 04/30/15 [History Confirmed 10/20/20] allopurinol 100 mg tablet 200 mg PO DAILY tab 10/18/20 [History Confirmed 10/20/20] levothyroxine 100 mcg tablet 100 mcg PO DAILY 10/18/20 [History Confirmed 10/20/20] acetaminophen 500 mg tablet 500 mg PO Q6H PRN 10/20/20 [History Confirmed 10/20/20] ascorbic acid (vitamin C) 500 mg tablet 500 mg PO DAILY 10/20/20 [History Confirmed 10/20/20] aspirin 81 mg tablet,delayed release 81 mg PO DAILY #1 tab 10/20/20 [Rx Confirmed 10/20/20] cholecalciferol (vitamin D3) 25 mcg (1,000 unit) tablet 25 mcg PO DAILY 10/20/20 [History Confirmed 10/20/20] clopidogrel 75 mg tablet 75 mg PO DAILY #30 tab 10/20/20 [Rx Confirmed 10/20/20] hydroxychloroquine 200 mg tablet 200 mg PO DAILY #1 tab 10/20/20 [Rx] prednisone 10 mg tablet 10 mg PO .COMPLEX PRN 10/20/20 [History Confirmed 10/20/20] PFSH Medical History (Updated 10/20/20 @ 09:41 by Sofia Laguna) Dyspnea on exertion Essential hypertension Gout Hypothyroidism Polymyalgia rheumatica Rheumatoid arthritis Type 2 diabetes mellitus Surgical History H/O right knee surgery History of appendectomy History of carpal tunnel surgery History of hysterectomy Family History Mother History of DVT (deep vein thrombosis) Hypertension Father Cancer Lung Sister CAD (coronary artery disease) History of coronary artery bypass surgery Social History Smoking Status: Never smoker alcohol intake: current details: occasional substance use type: does not use caffeine: Yes Type: coffee Number of servings: 3 and tea ROS Const Const: Negative for fatigue, weakness, frequent falls, excessive sweating, weight gain or weight loss Eyes Eyes: Negative for transient loss of vision, blurry vision or change in vision ENT ENT: Negative for dizziness or balance problems Cardio Chest Pain: No Palpitations: No Edema: None Muscle aches with walking: None Resp Respiratory: Positive for SOB with activity (increased); Negative for SOB at rest GI GI: Negative vomiting or vomiting blood/hematemesis : Negative for hematuria Musc Musc: Negative for muscle aches/ myalgia, muscle weakness, joint pain or balance problems Skin Skin: Negative non-healing lesions or rash Neuro Neuro: Negative for dizziness, lightheadedness, orthostatic symptoms, frequent falls, weakness or blurry vision Paul Hematologic/Lymphatic: Negative for easy bleeding Endo Endo: Negative for fatigue or excessive sweating Psych Psych: Negative for anxiety or depression Allergy Allergy/Immunology: Negative for hives and Negative for rash Cardiology Exam Const Appearance: cooperative, healthy appearing, comfortable, no acute distress, well developed and well groomed Nutritional Appearance: overweight Orientation: alert, awake and oriented x3 Head Head: normal to inspection, normocephalic and atraumatic Ears: hearing grossly normal bilaterally Nose: external nose normal Face and Sinus: face symmetric Eyes Eyelids: eyelids normal Conjunctivae: conjunctivae normal Pupils: PERRL EOM: EOM intact bilaterally Neck Neck: normal visual inspection and full ROM Carotids: normal carotid upstroke Chest Chest inspection: normal inspection of the chest, symmetric chest movement and normal respiratory effort Auscultation: Bilateral: Clear to Auscultation Cardio Palpation: normal PMI Rate: regular rate Rhythm: regular rhythm Heart sounds: S1 normal and S2 normal GI GI: normal to inspection, soft and bowel sounds present Neuro General: patient alert, patient awake, patient oriented x3 and moves all extremities Skin Skin: no rashes or lesions noted Extremities Pulses: Normal: Right Femoral Pulse, Left Femoral Pulse, Right Dorsalis Pedis Pulse, Left Dorsalis Pedis Pulse, Right Radial Pulse and Left Radial Pulse and Diminished: Right Posterior Tibial Pulse and Left Posterior Tibial Pulse Lower Extremity Edema: None: Bilateral Psych Psychological: normal affect Assessment and Plan Assessment and Plan (1) SOB (shortness of breath) on exertion: Status: Acute Orders: Orders: 12 Lead EKG performed by BMS Today Left Heart Cath/COR/LV Percut Today Basic Metabolic Profile (BMP) Today Partial Thromboplast Time Today Prothrombin Time w/INR Today CBC W/Diff, Automated Today Plan - Dr. Malcolm Forte MD: At the present time her shortness of breath/dyspnea on exertion is concerning for angina pectoris equivalent. At the same time other etiologies concerning for her age, functional status, weight, etc. cannot necessarily be excluded. From a cardiac standpoint she will have further noninvasive and a recommendation for invasive evaluation. This will include laboratory studies as well as a diagnostic cardiac catheterization. (2) Abnormal stress echocardiogram: Status: Acute Orders: Orders: 12 Lead EKG performed by BMS Today Left Heart Cath/COR/LV Percut Today Basic Metabolic Profile (BMP) Today Partial Thromboplast Time Today Prothrombin Time w/INR Today CBC W/Diff, Automated Today Plan - Dr. Malcolm Forte MD: She does have an abnormal stress echocardiogram. There is a possibility it is a false positive finding, however, with her cardiovascular risk factor history and her symptoms it is recommended she undergo further evaluation with diagnostic cardiac catheterization to evaluate for CAD requiring additional medical therapy and/or revascularization therapy. The procedure and risk were discussed with her. She was agreeable to this approach. (3) Essential hypertension: Status: Acute Orders: Orders: 12 Lead EKG performed by BMS Today Left Heart Cath/COR/LV Percut Today Basic Metabolic Profile (BMP) Today Partial Thromboplast Time Today Prothrombin Time w/INR Today CBC W/Diff, Automated Today Plan - Dr. Malcolm Forte MD: She will continue her antihypertensive therapy. Plan Details Other Medications: New: aspirin 81 mg PO DAILY 1 TAB 0RF clopidogrel (Plavix) 75 mg PO DAILY 30 tabs 1RF Changed: From: hydroxychloroquine (Plaquenil) 200 mg PO BID To: hydroxychloroquine (Plaquenil) 200 mg PO DAILY 1 TAB 0RF Other Orders: Orders: CBC W/Diff, Automated Today E11.9 Additional Comments: A copy of her most recent lipid labs would also be appreciated for continuity of care. Thank you for allowing me to participate in the care of your patient. Please don't hesitate to call if any issues arise. This note was generated using a voice recognition system and there may be incorrect words, spelling or punctuation that were not noted when reviewing the office note prior to saving. Follow Up: 10/20/20 (copy of PCP lipid labs) 3 Months (PFM) COVID (Procedure Consent) Procedure Criteria Procedure Criteria: Yes Elective The surgeon/proceduralist and patient have discussed in detail the risk of exposure to and/or potential harm posed by the COVID-19 virus with having a surgery/procedure at this time versus the risk of delaying the surgery/procedure. It is not possible to know either the risk of delaying the surgery or procedure or chance of getting an infection with perfect accuracy, but a joint decision was made between the patient and the surgeon/proceduralist to proceed at this time with the scheduled surgery/procedure as indicated on the consent form. Coding Level of Care Code Off vis,new,level 5 Diagnoses SOB (shortness of breath) on exertion R06.02 Abnormal stress echocardiogram R94.39 Essential hypertension I10 Coding Level of Care Code Off vis,new,level 5 Diagnoses SOB (shortness of breath) on exertion R06.02 Abnormal stress echocardiogram R94.39 Essential hypertension I10 Supplemental Info Supplemental Information Transthoracic echocardiogram: 05/31/2015 Interpretation Summary The study was technically difficult. Contrast injection was performed. Based upon the 2D echocardiographic and contrast images obtained there appears to be grossly normal left ventricular size, wall motion, and systolic function. The estimated ejection fraction is 55 %. Trivial mitral valve insufficiency. Trivial tricuspid valve insufficiency. Unable to estimate RV systolic pressure. Stress echocardiogram: 09/13/2020 Interpretation Summary Contrast injection performed Positive (technically adequate: Percent predicted maximal heart rate greater than 85%) stress echocardiogram Labs: LDL Cholesterol 98 mg/dL (0-130) HDL Cholesterol 65 mg/dL (40-) Triglycerides 178 mg/dL (-199) VLDL Cholesterol 36 mg/dL (5-40) Diagnostics: Electrocardiogram Echocardiogram Stress Echocardiogram Stress Test NM Chest X-Ray Pulmonary: Pulmonary Function Test 10/20/20 1028<Electronically signed by Malcolm Forte MD>Date Malcolm Forte MD Cosigner Signature:Date (if applicable) CC: Dr. Mariposa Parker, DO ~ I have re-examined the patient. There are no clinical changes since date of exam.
[2020-11-14 08:44] VITALS: BMI 30.9
--- NOTE | 2020-11-15 10:25 | CL.D_ITS ---
Patient Name: SHIRA CHEW Study Date: 11/15/2020 Performing: Malcolm Forte MD Ht: 64.96 inches 165 cm : 1945 Wt: 185.19 lbs 84 kg Age: 75 Gender: female BSA: 1.91 PROCEDURE(S) PERFORMED WB98-BHF/COR/LV CLINICAL PROFILE AND INDICATIONS Indications: Suspected CAD Heart Failure: None Stress/Imaging Date: 09/13/2020tress Echocardiogram: Positive Intermediate Risk Angina Classification Anginal Classification w/in 2 Weeks: Anginal Equivalent Dyspnea CAD Presentations: Other: dyspnea on exertion CONCLUSIONS Elevated Left Ventricular End Diastolic Pressure (mild) Normal LV size, wall motion,and systolic function LVEF: by LV gram 55 % Normal coronary arteries RECOMMENDATIONS Risk factor modification Medical therapy DESCRIPTION OF PROCEDURE The patient arrived to the procedure lab. The risks and benefits of the procedure as well as a full d escription of our services here and current unavailability of surgical backup were fully explained to the patient and/or their significant other prior to the catheterization. The Timeout was completed, verifying the correct patient and procedure. The patient's procedural site was prepped and draped in the usual fashion. Local anesthetic was given subcutaneously to right radial region with Lidocaine 2% . Using a modified Seldinger technique, arterial access was obtained via the right radial artery, a 6 Fr sheath was inserted. Left Coronary Artery selective angiography was performed in multiple views u sing a 5 Fr. 4.0 [place] catheter. Right Coronary Artery selective angiography was then performed in mu ltiple views using a 5 Fr. 4.0 [place] catheter. Left Ventriculography was performed in PRYOR projection using a 5 Fr. [place] catheter. LV to AO pullback pressures were then recorded.The arterial sheath was pulled and a TR Band was applied for hemostasis CORONARY ANGIOGRAPHY DOMINANCE: Co- Dominant LEFT HEART ASSESSMENT Left Ventricular Ejection Fraction: by LV Gram 55 % Normal LV wall motion Elevated Left Ventricular End Diastolic Pressure LVEDP: 13 mmHg LEFT MAIN: Angiographically normal LEFT ANTERIOR DESCENDING ARTERY: Angiographically normal CIRCUMFLEX ARTERY: Angiographically normal RIGHT CORONARY ARTERY: Angiographically normal AORTIC ROOT: Angiographically normal COMPLICATIONS No Complications PROCEDURE MEDICATIONS Versed 1 mg IV Fentanyl 50 mcg IV Oxygen: 2 L/min via nasal cannula Heparin given IA 11/15/2020 09:56:45 Verapamil 2.5mg, Ntg 100mcgs, 3000 units of Heparin given IA 11/15/2020 09:56:45 SUMMARY OF HEMODYNAMIC DATA Time AIR REST ECG 08:23:24 AO 126/69 (95) SA 09:58:42 LV 136/0, 23 10:04:04 LV 141/-16, 13 10:04:11 LV 143/-3, 19 10:05:08 LV 144/-17, 17 10:05:15 LVp 144/-21, 13 10:05:59 AOp 144/51 (89) 10:06:04 Signed By Malcolm Forte MD On 11/15/2020 10:24:52 Malcolm Forte MD
== END 2020-11-15 12:25 | disposition home or self-care (01) ==
LOC: CLSP 07:56
PROVIDERS: PCP Family Medicine; Referring Provider Internal Medicine Cardiovascular Disease; Visit Provider Internal Medicine Cardiovascular Disease
DX: R06.00 Dyspnea, unspecified (principal); R06.02 Shortness of breath; R94.39 Abnormal result of other cardiovascular function study; I10 Essential (primary) hypertension; E03.9 Hypothyroidism, unspecified; E11.9 Type 2 diabetes mellitus without complications; M10.9 Gout, unspecified; M06.9 Rheumatoid arthritis, unspecified; M35.3 Polymyalgia rheumatica; Z79.02 Long term (current) use of antithrombotics/antiplatelets; Z79.82 Long term (current) use of aspirin; Z79.899 Other long term (current) drug therapy; Z88.0 Allergy status to penicillin
CPT/HCPCS: 93458; 99152; 99153; J7040; Q9967; C1769; C1894

== ENCOUNTER → 2020-11-18 09:35 | Outpatient (CLI) | payer MEDICARE, OTHER, SELFPAY ==
[2020-11-14 08:44] VITALS: BMI 30.9
[2020-11-18 12:09] LABS: Absolute Lymphocyte Count 1.47 X10^3/uL (0.83-4.51); Basophil# 0.07 X10^3/uL; Basophil% 1.1 % (0-1); Eosinophil# 0.26 X10^3/uL; Eosinophils% 4.1 % (0-5); Hematocrit 47.8 % (37-47); Hemoglobin 14.8 g/dL (12.0-15.0); Lymphocyte # 1.47 X10^3/ul (0.83-4.51); Lymphocyte % 23.1 % (19-41); Mean Corpuscular Hgb 29.4 pg (27.0-32.0); Mean Platelet Vol. 12.3 fl (6.2-12.0); Monocyte# 0.57 X10^3/uL; Monocyte% 8.9 % (0-10); NRBC Flagged by Analyzer 0 % (0-5); Neutrophil # 3.99 X10^3/uL (2.7-7.7); Neutrophil % 62.6 % (47-70); Platelet Count 200 K/mm3 (150-450); RBC Distribution Width CV 13.4 % (11.6-14.6); RBC Distribution Width SD 46.9 fl (35.1-43.9); Red Blood Count 5.03 M/mm3 (4.2-5.4); White Blood Count 6.4 K/mm3 (4.4-11.0)
[2020-11-18 12:25] LABS: AST(SGOT) 26 U/L (15-37); Alanine Aminotransfer ALT/SGPT 32 U/L (13-56); Alkaline Phosphatase 63 U/L (45-117); Anion Gap 8 (5-15); BUN 19 mg/dL (7-18); BUN/Creat Ratio 20.6 RATIO (10-20); Calcium,Total 9.3 mg/dL (8.5-10.1); Chloride 101 mmol/L (98-107); Creatinine, Serum 0.92 mg/dL (0.55-1.02); EST Glomerular Filtration Rate 63 mL/min (>60); Est Glom Filt Rate - Afr Amer 76 mL/min (>60); Glucose 103 mg/dL (74-106); Potassium 3.8 mmol/L (3.5-5.1); Sodium Level 137 mmol/L (136-145); Uric Acid 5.5 mg/dL (2.6-6.0)
== END ==
PROVIDERS: PCP Family Medicine; Referring Provider Internal Medicine Rheumatology; Visit Provider Internal Medicine Rheumatology
DX: M06.4 Inflammatory polyarthropathy (principal); M35.3 Polymyalgia rheumatica; K76.0 Fatty (change of) liver, not elsewhere classified; I10 Essential (primary) hypertension; E03.9 Hypothyroidism, unspecified; J44.9 Chronic obstructive pulmonary disease, unspecified
CPT/HCPCS: 36415; 80053; 84550; 85025

== ENCOUNTER → 2021-02-10 11:19 | Outpatient (CLI) | payer MEDICARE, OTHER, SELFPAY ==
--- NOTE | 2021-02-10 11:21 | BI_ITS ---
MAMMOGRAPHY - BILATERAL SCREENING REASON FOR EXAM: Female, 75 years old. Routine annual screening examination. PERTINENT HISTORY: Non-contributory. TECHNIQUE: Digital bilateral breast bharathi (3D mammographic acquisition) in the CC and MLO projections. 2-D mediolateral oblique (MLO) and craniocaudad (CC) views of both breasts were obtained. CAD: Full Field Digital Mammography with Computer Added Detection was performed. COMPARISON: Comparison is made with prior study dated 10/08/2019 and 09/09/2018. FINDINGS: Breast Composition: The breasts are heterogeneously dense, which may obscure small masses. There is a 2.3 cm x 2.9 cm well-defined nodule in the inferior slightly medial aspect of the left breast. Correlation with ultrasound is recommended. Stable small benign-appearing bilateral axillary lymph nodes. No other significant abnormalities are identified. BI/SCRN MAMM (CAD)W/BHARATHI BILAT IMPRESSION: 2.3 cm x 2.9 cm well-defined nodule in the inferior slightly medial aspect of the left breast. Correlation with ultrasound is recommended. ASSESSMENT CATEGORY: BIRADS Category 0: Incomplete. Need additional imaging evaluation. A letter regarding these results will be sent to the patient by the facility within 30 days. Approximately 10% of breast cancers are not detected by mammography. A normal mammogram should not delay biopsy of a clinically suspicious abnormality. [id number] Electronically Signed: Terrell Mars MD at 12:50 EDT , Service support ,
== END ==
PROVIDERS: PCP Family Medicine; Referring Provider Family Medicine; Visit Provider Family Medicine
DX: Z12.31 Encounter for screening mammogram for malignant neoplasm of breast (principal); N63.20 Unspecified lump in the left breast, unspecified quadrant
CPT/HCPCS: 77063; 77067

== ENCOUNTER → 2021-02-14 09:26 | Outpatient (CLI) | payer MEDICARE, OTHER, SELFPAY ==
--- NOTE | 2021-02-14 09:28 | US_ITS ---
STUDY: ULTRASOUND BREAST - LEFT REASON FOR EXAM: Female, 75 years old. Abnormal screening mammogram. TECHNIQUE: Axial and longitudinal images of the LEFT breast were performed with a high resolution ultrasound transducer. # OF IMAGES: 45 COMPARISON: Comparison is made with prior mammogram dated 02/10/2021. FINDINGS: LEFT Breast: The inferior aspect of the left breast was examined by ultrasound. 3 cysts are seen at the 6 o''clock position of the breast. The largest measures 2.1 cm x 1.1 cm x 0.8 cm. This corresponds to the mammographic abnormality. US/Breast Limited Unilateral IMPRESSION: 3 adjacent cysts are seen at the 6 o''clock position of the breast. Routine mammographic follow-up is recommended. ASSESSMENT CATEGORY: BIRADS Category 2: Benign. A letter regarding these results will be sent to the patient by the facility within 30 days. Electronically Signed: Terrell Mars MD at 12:24 EDT , Service support ,
== END ==
PROVIDERS: PCP Family Medicine; Referring Provider Family Medicine; Visit Provider Family Medicine
DX: R92.8 Other abnormal and inconclusive findings on diagnostic imaging of breast (principal)
CPT/HCPCS: 76642

== ENCOUNTER 2021-05-22 16:06 | Outpatient (CLI) | payer MEDICARE, OTHER, SELFPAY ==
[2021-05-22 18:14] LABS: Absolute Lymphocyte Count 1.42 X10^3/uL (0.83-4.51); Basophil# 0.06 X10^3/uL; Eosinophil# 0.28 X10^3/uL; Eosinophils% 4.5 % (0-5); Hematocrit 43.6 % (37-47); Hemoglobin 13.8 g/dL (12.0-15.0); Lymphocyte # 1.42 X10^3/ul (0.83-4.51); Lymphocyte % 22.6 % (19-41); Mean Corp Hgb Conc 31.7 g/dL (32-36); Mean Corpuscular Hgb 29.6 pg (27.0-32.0); Mean Corpuscular Volume 93.6 fL (81-99); Mean Platelet Vol. 12.9 fl (6.2-12.0); Monocyte# 0.54 X10^3/uL; Monocyte% 8.6 % (0-10); NRBC Flagged by Analyzer 0 % (0-5); Neutrophil # 3.96 X10^3/uL (2.7-7.7); Neutrophil % 63.1 % (47-70); Platelet Count 207 K/mm3 (150-450); RBC Distribution Width CV 13.5 % (11.6-14.6); RBC Distribution Width SD 45.9 fl (35.1-43.9); Red Blood Count 4.66 M/mm3 (4.2-5.4); White Blood Count 6.3 K/mm3 (4.4-11.0)
[2021-05-22 19:52] LABS: AST(SGOT) 19 U/L (15-37); Alanine Aminotransfer ALT/SGPT 22 U/L (13-56); Albumin, Serum 3.8 g/dL (3.2-5.0); Alkaline Phosphatase 75 U/L (45-117); Anion Gap 5 (5-15); BUN 22 mg/dL (7-18); BUN/Creat Ratio 21.8 RATIO (10-20); Calcium,Total 9.3 mg/dL (8.5-10.1); Chloride 103 mmol/L (98-107); Creatinine, Serum 1.01 mg/dL (0.55-1.02); EST Glomerular Filtration Rate 57 mL/min (>60); Est Glom Filt Rate - Afr Amer 68 mL/min (>60); Glucose 148 mg/dL (74-106); Potassium 3.5 mmol/L (3.5-5.1); Protein, Total 7.8 g/dL (6.4-8.2); Sodium Level 138 mmol/L (136-145); Uric Acid 4.8 mg/dL (2.6-6.0)
== END 2021-05-22 23:59 | disposition short-term general hospital (02) ==
LOC: MTLAB 16:09
PROVIDERS: PCP Family Medicine; Referring Provider Internal Medicine Rheumatology; Visit Provider Internal Medicine Rheumatology
DX: M06.4 Inflammatory polyarthropathy (principal); M35.3 Polymyalgia rheumatica; J44.9 Chronic obstructive pulmonary disease, unspecified; K76.0 Fatty (change of) liver, not elsewhere classified; I10 Essential (primary) hypertension; E03.9 Hypothyroidism, unspecified
CPT/HCPCS: 36415; 80053; 84550; 85025

== ENCOUNTER → 2021-11-23 | Outpatient (CLI) | payer MEDICARE, SELFPAY ==
[2021-11-23 10:22] LABS: Absolute Lymphocyte Count 1.75 X10^3/uL (0.83-4.51); Absolute Neutrophil Count 3.9 X10^3/uL (2.0-7.7); Basophil# 0.06 X10^3/uL; Basophil% 0.9 % (0-1); Eosinophil# 0.29 X10^3/uL; Eosinophils% 4.4 % (0-5); Hematocrit 47.3 % (37-47); Lymphocyte # 1.75 X10^3/ul (0.83-4.51); Lymphocyte % 26.8 % (19-41); Mean Corp Hgb Conc 31.7 g/dL (32-36); Mean Corpuscular Hgb 29.9 pg (27.0-32.0); Mean Corpuscular Volume 94.4 fL (81-99); Mean Platelet Vol. 12.1 fl (6.2-12.0); Monocyte# 0.49 X10^3/uL; Monocyte% 7.5 % (0-10); NRBC Flagged by Analyzer 0 % (0-5); Neutrophil # 3.94 X10^3/uL (2.7-7.7); Neutrophil % 60.2 % (47-70); Platelet Count 184 K/mm3 (150-450); RBC Distribution Width CV 13.2 % (11.6-14.6); RBC Distribution Width SD 46.2 fl (35.1-43.9); Red Blood Count 5.01 M/mm3 (4.2-5.4); White Blood Count 6.5 K/mm3 (4.4-11.0)
[2021-11-23 11:10] LABS: AST(SGOT) 24 U/L (15-37); Alanine Aminotransfer ALT/SGPT 23 U/L (13-56); Alkaline Phosphatase 77 U/L (45-117); Anion Gap 5 (5-15); BUN 19 mg/dL (7-18); BUN/Creat Ratio 20.1 RATIO (10-20); Calcium,Total 9.4 mg/dL (8.5-10.1); Chloride 101 mmol/L (98-107); Creatinine, Serum 0.94 mg/dL (0.55-1.02); EST Glomerular Filtration Rate 61 mL/min (>60); Est Glom Filt Rate - Afr Amer 74 mL/min (>60); Glucose 96 mg/dL (74-106); Potassium 3.8 mmol/L (3.5-5.1); Sodium Level 136 mmol/L (136-145)
== END | disposition home or self-care (01) ==
PROVIDERS: PCP Family Medicine; Referring Provider Internal Medicine Rheumatology; Visit Provider Internal Medicine Rheumatology
DX: M06.4 Inflammatory polyarthropathy (principal); M35.3 Polymyalgia rheumatica; J44.9 Chronic obstructive pulmonary disease, unspecified; K76.0 Fatty (change of) liver, not elsewhere classified; I10 Essential (primary) hypertension; E03.9 Hypothyroidism, unspecified
CPT/HCPCS: 36415; 80053; 85025

== ENCOUNTER 2021-12-16 12:54 | Emergency (ER) | payer MEDICARE, SELFPAY ==
[2021-12-16 12:55] VITALS: BP 177/77; PULSE 109; RESP 14; TEMP 36.8; O2SAT 98; BMI 31.9
--- NOTE | 2021-12-16 13:39 | EKG12_ITS ---
Test Reason : CHEST PAIN Blood Pressure : / mmHG Vent. Rate : 100 BPM Atrial Rate : 100 BPM P-R Int : 168 ms QRS Dur : 094 ms QT Int : 386 ms P-R-T Axes : 069 -11 031 degrees QTc Int : 497 ms Normal sinus rhythm Possible Left atrial enlargement Prolonged QT Abnormal ECG Confirmed by MADI HAMILTON, TRISTIN ([id number]), state editor JUANITA GUERRIER ([id number]) on 12/19/2021 7:49:18 AM Referred By: Confirmed By:TRISTIN BARRAZA MD
--- NOTE | 2021-12-16 13:43 | RAD_ITS ---
STUDY: X-RAY CHEST REASON FOR EXAM: Female, 76 years old. chest pain TECHNIQUE: Single AP portable view of the chest. COMPARISON: 09/02/2020 FINDINGS: The lungs are clear and expanded. There is no demonstrated pleural abnormality. Normal size heart. Normal mediastinum and jamia. Normal visualized pulmonary arteries. Normal visualized aortic arch and descending thoracic aorta. Normal visualized thoracic spine. Normal visualized ribs, clavicles, and shoulders. There is no demonstrated abnormality of the visualized soft tissue structures of the upper abdomen. RAD/Chest 1 View (Portable) IMPRESSION: Normal x-ray examination of the chest. Electronically Signed: Sudhakar Cruz MD at 14:00 EDT ,
[2021-12-16 14:04] LABS: Absolute Lymphocyte Count 2.87 X10^3/uL (0.83-4.51); Absolute Neutrophil Count 4.2 X10^3/uL (2.0-7.7); Basophil# 0.08 X10^3/uL; Eosinophil# 0.26 X10^3/uL; Eosinophils% 3.2 % (0-5); Hemoglobin 15.7 g/dL (12.0-15.0); Lymphocyte # 2.87 X10^3/ul (0.83-4.51); Lymphocyte % 35.5 % (19-41); Mean Corpuscular Volume 93.5 fL (81-99); Mean Platelet Vol. 12.5 fl (6.2-12.0); Monocyte# 0.66 X10^3/uL; Monocyte% 8.2 % (0-10); NRBC Flagged by Analyzer 0 % (0-5); Neutrophil # 4.18 X10^3/uL (2.7-7.7); Neutrophil % 51.7 % (47-70); Platelet Count 199 K/mm3 (150-450); RBC Distribution Width CV 13.2 % (11.6-14.6); RBC Distribution Width SD 45.7 fl (35.1-43.9); Red Blood Count 5.24 M/mm3 (4.2-5.4); White Blood Count 8.1 K/mm3 (4.4-11.0)
--- NOTE | 2021-12-16 14:14 | ED.VIS.CHEST ---
HPI History of Present Illness Chief Complaint: Chest Pain Narrative Narrative: 76-year-old female presenting with chest pain. She states that she woke up this morning and was able to eat breakfast. She had a banana and a poached egg. She had cleaned her house and made her bed. She states when she sat in her chair she developed retrosternal chest pressure which radiated to the left shoulder. She states she became diaphoretic and nauseous. This lasted about 5 minutes. States prior to that she was otherwise well. She states she does not think she has any cardiac history. She had a negative cardiac cath 3 years ago she states. She has not followed up with cardiology since then. She states she was in her usual state of health prior to these events. No history of DVT/PE. [facility] Medical History Dyspnea on exertion Essential hypertension Gout Hypothyroidism Polymyalgia rheumatica Rheumatoid arthritis Type 2 diabetes mellitus Home Medications calcium carbonate 600 mg-vitamin D3 10 mcg (400 unit) tablet 1 ea PO DAILY 04/30/15 [History Last Taken Unknown] gabapentin 100 mg capsule 100 mg PO BID 04/30/15 [History Last Taken Unknown] multivitamin (Daily Multiple tablet) 1 ea PO DAILY 04/30/15 [History Last Taken Unknown] triamterene 37.5 mg-hydrochlorothiazide 25 mg capsule 1 cap PO DAILY 04/30/15 [History Last Taken Unknown] allopurinol 100 mg tablet 200 mg PO DAILY 10/18/20 [History Last Taken Unknown] levothyroxine 100 mcg tablet 100 mcg PO DAILY 10/18/20 [History Last Taken 11/15/20] acetaminophen 500 mg tablet 500 mg PO Q6H PRN Pain 10/20/20 [History Last Taken Unknown] ascorbic acid (vitamin C) 500 mg tablet 500 mg PO DAILY 10/20/20 [History Last Taken Unknown] aspirin 81 mg tablet,delayed release (Adult Aspirin Regimen) 81 mg PO DAILY 10/20/20 [History Last Taken 11/15/20] cholecalciferol (vitamin D3) 25 mcg (1,000 unit) tablet 25 mcg PO DAILY 10/20/20 [History Last Taken Unknown] hydroxychloroquine 200 mg tablet (Plaquenil) 200 mg PO DAILY #1 TAB 10/20/20 [Rx Last Taken Unknown] prednisone 10 mg tablet 10 mg PO .COMPLEX PRN Wheezing 10/20/20 [History Last Taken Unknown] promethazine 12.5 mg tablet 12.5 mg PO TID PRN nausea and vomiting #10 tabs 12/16/21 [Rx Last Taken Unknown] Allergy/AdvReac Type Severity Reaction Status Date / Time amoxicillin AdvReac GI upset, Verified 12/16/21 12:55 Nausea and vomiting Family History Mother History of DVT (deep vein thrombosis) Hypertension Father Cancer Lung Sister CAD (coronary artery disease) History of coronary artery bypass surgery Surgical History H/O right knee surgery History of appendectomy History of carpal tunnel surgery History of hysterectomy History of left heart catheterization (LHC) (~11/15/20) Social History Smoking Status: Never smoker alcohol intake: current details: occasional substance use type: does not use caffeine: Yes Type: coffee Number of servings: 3 and tea ROS ROS ED Constitutional Constitutional ED: Reports sweats; Denies chills or fever(s) Eyes Eyes: Reports none ENT ENT ED: Denies rhinorrhea or sore throat Cardiovascular Cardiovascular: Reports as per HPI Respiratory/Chest Respiratory/Chest: Denies cough or dyspnea Gastrointestinal Gastrointestinal: Reports nausea; Denies abdominal pain or constipation Genitourinary Genitourinary ED: Denies dysuria or hematuria Musculoskeletal Musculoskeletal: Denies arthralgias or back pain Integumentary Denies abscess Neurologic Neurologic: Denies headache(s) Psychiatric Psychiatric: Denies anxiety or depression EXAM Physical Exam Const Vital Signs: 12/16/21 12:55 12/16/21 14:56 12/16/21 15:24 Temperature 98.2 F Temperature Source Temporal Pulse Rate 109 H 86 Respiratory Rate 14 24 H Blood Pressure 177/77 H 126/67 H Blood Pressure Mean 110 86 Pulse Ox 98 98 98 Oxygen Delivery Method Room Air Room Air Room Air Positive well nourished General Appearance ED: NAD; Negative for pallor HEENT Reports moist mucous membranes normocephalic and atraumatic Eyes PERRL and EOMs intact bilaterally Chest Wall inspection of chest normal and palpation of chest normal Resp normal respiratory effort and clear to auscultation bilaterally Auscultation: Negative for rales, rhonchi or wheezes Cardio regular rate and regular rhythm Neuro oriented x3 and CN's II-XII intact bilaterally Sensorium / Orientation: awake and alert Psych mental status grossly normal Skin no rashes or lesions noted General Skin Exam: Negative for jaundice or pallor Heart Score History: Moderately Suspicious ECG: Normal Age: >/= 65 years Risk Factors: 1 or 2 Risk Factors Troponin: </= Normal Limit Score: 4 MDM MDM MDM Narrative Medical decision making narrative: 76-year-old female presenting with chest pain which started while she was sitting in her chair after doing morning chores. She states she became diaphoretic, nauseous. She states the chest pressure radiated to the left shoulder. She states this lasted until about 5 minutes. She states she had a negative cardiac catheterization about 3 years ago. Her EKG on my interpretation shows normal sinus rhythm with ventricular rate of 100 bpm without sign of ischemic change or dysrhythmia. She states she took a full strength 325 aspirin prior to coming in she is currently pain-free. Chest x-ray on my interpretation shows no acute cardiopulmonary process and radiologist agree. CBC is within normal limits. BMP is also normal. High-sensitivity troponin is 8. Delta troponin is 9. Patient has an HEART score of 4. Patient has not had return of her pain. Given her ultimately negative work-up I feel she is stable for discharge home. Patient counseled on return precautions. She is discharged home in stable condition. Impression: 1. Chest pain 2. Nausea Lab Data Attestation: I reviewed the patient's lab results. Labs: Laboratory Results - last 24 hr 12/16/21 12/16/21 12/16/21 13:58 13:58 16:48 WBC 8.1 RBC 5.24 Hgb 15.7 H Hct 49.0 H MCV 93.5 MCH 30.0 MCHC 32.0 RDW Std Deviation 45.7 H RDW Coeff of Jonnathan 13.2 Plt Count 199 MPV 12.5 H Immature Gran % (Auto) 0.400 Neut % (Auto) 51.7 Lymph % (Auto) 35.5 Morrill % (Auto) 8.2 Eos % (Auto) 3.2 Baso % (Auto) 1.0 Absolute Neuts (auto) 4.2 Absolute Lymphs (auto) 2.87 Nucleated RBC % 0 Sodium 138 Potassium 3.6 Chloride 101 Carbon Dioxide 30.0 Anion Gap 7 BUN 17 Creatinine 0.92 Estim Creat Clear Calc 44.22 Est GFR (MDRD) Af Amer 76 Est GFR (MDRD) Non-Af 63 BUN/Creatinine Ratio 18.5 Glucose 119 H Calcium 9.6 Troponin I High Sens 8 9 Radiography Diagnostic Testing: Clinical Impression(s) from Imaging Studies Chest X-Ray 12/16/21 13:43 IMPRESSION: Normal x-ray examination of the chest. Electronically Signed: Sudhakar Cruz MD at 14:00 EDT , Discharge Plan Triage Chief Complaint: Chest Pain ED Provider: Mariusz Luna Dx/Rx/DC Orders Instructions: ED Chest Pain, Uncertain Cause Prescriptions: New promethazine 12.5 mg tablet 12.5 mg PO TID PRN (Reason: nausea and vomiting) Qty: 10 0RF Rx Instructions: 3 doses during day; last dose no later than 4 hr before bedtime No Action ascorbic acid (vitamin C) 500 mg tablet 500 mg PO DAILY cholecalciferol (vitamin D3) 25 mcg (1,000 unit) tablet 25 mcg PO DAILY acetaminophen 500 mg tablet 500 mg PO Q6H PRN (Reason: Pain) prednisone 10 mg tablet 10 mg PO .COMPLEX PRN (Reason: Wheezing) Rx Instructions: 10 mg PO PRN; hydroxychloroquine [Plaquenil] 200 mg tablet 200 mg PO DAILY Qty: 1 0RF multivitamin [Daily Multiple] 1 EACH tablet 1 ea PO DAILY triamterene-hydrochlorothiazid 1 CAP capsule 1 cap PO DAILY calcium carbonate-vitamin D3 1 EACH tablet 1 ea PO DAILY gabapentin 100 MG capsule 100 mg PO BID Label Comments: allopurinol 100 mg tablet 200 mg PO DAILY levothyroxine 100 mcg tablet 100 mcg PO DAILY aspirin [Adult Aspirin Regimen] 81 mg tablet,delayed release (DR/EC) 81 mg PO DAILY Primary Care Provider: Mariposa Parker Referrals: Mariposa Parker DO [Primary Care Provider] - Disposition Disposition: Home, Self Care
[2021-12-16 14:34] LABS: Anion Gap 7 (5-15); BUN 17 mg/dL (7-18); BUN/Creat Ratio 18.5 RATIO (10-20); Calcium,Total 9.6 mg/dL (8.5-10.1); Chloride 101 mmol/L (98-107); Creatinine, Serum 0.92 mg/dL (0.55-1.02); EST Glomerular Filtration Rate 63 mL/min (>60); Est Glom Filt Rate - Afr Amer 76 mL/min (>60); Estimated Creatinine Clearance 44.22 ml/min; Glucose 119 mg/dL (74-106); Potassium 3.6 mmol/L (3.5-5.1); Sodium Level 138 mmol/L (136-145); Troponin-I HS (w/2H Reflex) 8 pg/mL (3.0-54.0)
[2021-12-16 14:56] VITALS: O2SAT 98
[2021-12-16 15:24] VITALS: BP 126/67; PULSE 86; RESP 24; O2SAT 98
[2021-12-16 16:00] LABS: Reflex Troponin-HS? (from REC) Y
[2021-12-16 17:36] LABS: Troponin-I HS 9 pg/mL (3.0-54.0)
[2021-12-16 18:18] VITALS: BP 143/75; PULSE 76; RESP 19; TEMP 36.8
[2021-12-16 18:19] VITALS: RESP 17
== END 2021-12-16 18:19 | disposition home or self-care (01) ==
PROVIDERS: Emergency Provider Student in an Organized Health Care Education/Training Program; PCP Family Medicine; Visit Provider Student in an Organized Health Care Education/Training Program
DX: R07.9 Chest pain, unspecified (principal); M06.9 Rheumatoid arthritis, unspecified; M35.3 Polymyalgia rheumatica; E11.9 Type 2 diabetes mellitus without complications; R11.0 Nausea; I10 Essential (primary) hypertension; E03.9 Hypothyroidism, unspecified
CPT/HCPCS: 71045; 80048; 84484; 85025; 93005; 99283; A4216

== ENCOUNTER → 2022-02-20 | Outpatient (CLI) | payer MEDICARE, SELFPAY ==
--- NOTE | 2022-02-20 08:17 | BI_ITS ---
MAMMOGRAPHY - BILATERAL SCREENING REASON FOR EXAM: Female, 76 years old. Routine annual screening examination. PERTINENT HISTORY: Non-contributory. History of prior bilateral breast aspirations. TECHNIQUE: Digital bilateral breast bharathi (3D mammographic acquisition) in the CC and MLO projections. 2-D mediolateral oblique (MLO) and craniocaudad (CC) views of both breasts were obtained. CAD: Full Field Digital Mammography with Computer Added Detection was performed. COMPARISON: Comparison is made with prior study 02/10/2021 and 10/08/2019. FINDINGS: Breast Composition: The breasts are heterogeneously dense, which may obscure small masses. Stable 2 cm x 2.4 cm well-defined nodule in the inferior slightly medial aspect of the left breast. This was demonstrated to be cysts on prior sonogram. No other significant abnormalities are identified. There has been no significant change since the prior study. BI/SCRN MAMM (CAD)W/BHARATHI BILAT IMPRESSION: Stable bilateral screening mammogram. Yearly follow-up mammogram recommended. (A) ASSESSMENT CATEGORY: BIRADS Category 2: Benign. A letter regarding these results will be sent to the patient by the facility within 30 days. Approximately 10% of breast cancers are not detected by mammography. A normal mammogram should not delay biopsy of a clinically suspicious abnormality. [id number] Electronically Signed: Terrell Mars MD at 9:53 EDT ,
== END | disposition home or self-care (01) ==
LOC: OPBI 08:15
PROVIDERS: PCP Family Medicine; Visit Provider Family Medicine
DX: Z12.31 Encounter for screening mammogram for malignant neoplasm of breast (principal)
CPT/HCPCS: 77063; 77067

== ENCOUNTER → 2022-05-24 | Outpatient (CLI) | payer MEDICARE, SELFPAY ==
[2022-05-24 12:13] LABS: Absolute Lymphocyte Count 1.49 X10^3/uL (0.83-4.51); Absolute Neutrophil Count 3.4 X10^3/uL (2.0-7.7); Basophil# 0.06 X10^3/uL; Basophil% 1.1 % (0-1); Eosinophil# 0.24 X10^3/uL; Eosinophils% 4.2 % (0-5); Hematocrit 45.5 % (37-47); Hemoglobin 14.2 g/dL (12.0-15.0); Lymphocyte # 1.49 X10^3/ul (0.83-4.51); Lymphocyte % 26.1 % (19-41); Mean Corp Hgb Conc 31.2 g/dL (32-36); Mean Corpuscular Hgb 29.3 pg (27.0-32.0); Mean Corpuscular Volume 93.8 fL (81-99); Mean Platelet Vol. 11.7 fl (6.2-12.0); Monocyte# 0.45 X10^3/uL; Monocyte% 7.9 % (0-10); NRBC Flagged by Analyzer 0 % (0-5); Neutrophil # 3.42 X10^3/uL (2.7-7.7); Platelet Count 248 K/mm3 (150-450); RBC Distribution Width CV 13.4 % (11.6-14.6); RBC Distribution Width SD 46.3 fl (35.1-43.9); Red Blood Count 4.85 M/mm3 (4.2-5.4); White Blood Count 5.7 K/mm3 (4.4-11.0)
[2022-05-24 13:19] LABS: ALB/GLOB Ratio 1.1 RATIO (0.9-2.4); AST(SGOT) 20 U/L (15-37); Alanine Aminotransfer ALT/SGPT 17 U/L (13-56); Alkaline Phosphatase 69 U/L (45-117); Anion Gap 6 (5-15); BUN 24 mg/dL (7-18); BUN/Creat Ratio 26.9 RATIO (10-20); Calcium,Total 9.3 mg/dL (8.5-10.1); Chloride 104 mmol/L (98-107); Creatinine, Serum 0.89 mg/dL (0.55-1.02); EST Glomerular Filtration Rate 65 mL/min (>60); Est Glom Filt Rate - Afr Amer 79 mL/min (>60); Globulin 3.8 g/dL (2.2-4.2); Glucose 101 mg/dL (74-106); Potassium 3.9 mmol/L (3.5-5.1); Protein, Total 7.8 g/dL (6.4-8.2); Sodium Level 140 mmol/L (136-145)
== END | disposition home or self-care (01) ==
PROVIDERS: PCP Family Medicine; Referring Provider Internal Medicine Rheumatology; Visit Provider Internal Medicine Rheumatology
DX: M06.4 Inflammatory polyarthropathy (principal); M35.3 Polymyalgia rheumatica; J44.9 Chronic obstructive pulmonary disease, unspecified; K76.0 Fatty (change of) liver, not elsewhere classified; I10 Essential (primary) hypertension; E03.9 Hypothyroidism, unspecified
CPT/HCPCS: 36415; 80053; 85025

== ENCOUNTER → 2022-07-16 | Outpatient (CLI) | payer MEDICARE, SELFPAY ==
[2022-07-16 12:42] LABS: Free T3 2.1 pg/mL (2.18-3.98); T4 Free Direct 1.25 ng/dL (0.76-1.46); Thyroid Stim Hormone (TSH) 1.19 uIU/mL (0.358-3.74)
== END | disposition home or self-care (01) ==
PROVIDERS: PCP Family Medicine; Referring Provider Family Medicine; Visit Provider Family Medicine
DX: E03.9 Hypothyroidism, unspecified (principal)
CPT/HCPCS: 36415; 84439; 84443; 84481

== ENCOUNTER → 2022-11-05 | Outpatient (CLI) | payer MEDICARE, SELFPAY ==
[2022-11-05 12:06] LABS: Absolute Lymphocyte Count 1.53 X10^3/uL (0.83-4.51); Absolute Neutrophil Count 3.1 X10^3/uL (2.0-7.7); Basophil# 0.08 X10^3/uL; Basophil% 1.5 % (0-1); Eosinophil# 0.28 X10^3/uL; Eosinophils% 5.1 % (0-5); Hematocrit 45.6 % (37-47); Hemoglobin 13.8 g/dL (12.0-15.0); Lymphocyte # 1.53 X10^3/ul (0.83-4.51); Lymphocyte % 28.1 % (19-41); Mean Corp Hgb Conc 30.3 g/dL (32-36); Mean Corpuscular Hgb 29.1 pg (27.0-32.0); Mean Platelet Vol. 12.1 fl (6.2-12.0); Monocyte% 7.3 % (0-10); NRBC Flagged by Analyzer 0 % (0-5); Neutrophil # 3.14 X10^3/uL (2.7-7.7); Neutrophil % 57.6 % (47-70); Platelet Count 206 K/mm3 (150-450); RBC Distribution Width SD 49.8 fl (35.1-43.9); Red Blood Count 4.75 M/mm3 (4.2-5.4); White Blood Count 5.5 K/mm3 (4.4-11.0)
[2022-11-05 12:34] LABS: ALB/GLOB Ratio 0.9 RATIO (0.9-2.4); AST(SGOT) 21 U/L (15-37); Alanine Aminotransfer ALT/SGPT 23 U/L (13-56); Albumin, Serum 3.8 g/dL (3.2-5.0); Alkaline Phosphatase 68 U/L (45-117); Anion Gap 5 (5-15); BUN 22 mg/dL (7-18); BUN/Creat Ratio 21.6 RATIO (10-20); Calcium,Total 9.5 mg/dL (8.5-10.1); Chloride 102 mmol/L (98-107); Creatinine, Serum 1.02 mg/dL (0.55-1.02); EST Glomerular Filtration Rate 56 mL/min (>60); Est Glom Filt Rate - Afr Amer 67 mL/min (>60); Globulin 4.1 g/dL (2.2-4.2); Glucose 124 mg/dL (74-106); Potassium 3.9 mmol/L (3.5-5.1); Protein, Total 7.9 g/dL (6.4-8.2); Sodium Level 137 mmol/L (136-145)
== END | disposition home or self-care (01) ==
LOC: MTLAB 09:34
PROVIDERS: PCP Family Medicine; Referring Provider Internal Medicine Rheumatology; Visit Provider Internal Medicine Rheumatology
DX: M06.4 Inflammatory polyarthropathy (principal); M35.3 Polymyalgia rheumatica
CPT/HCPCS: 36415; 80053; 85025

== ENCOUNTER → 2023-03-11 | Outpatient (CLI) | payer MEDICARE, SELFPAY | END | disposition home or self-care (01) | LOC: LABSPEC 11:48 | PROVIDERS: PCP Nurse Practitioner Family; Referring Provider Nurse Practitioner Family; Visit Provider Nurse Practitioner Family | DX: N39.0 Urinary tract infection, site not specified (principal) | CPT/HCPCS: 87086; 87088 ==

== ENCOUNTER → 2023-03-15 | Outpatient (CLI) | payer MEDICARE, SELFPAY ==
--- NOTE | 2023-03-15 13:08 | BI_ITS ---
MAMMOGRAPHY - BILATERAL SCREENING REASON FOR EXAM: Female, 77 years old. Routine annual screening examination. PERTINENT HISTORY: Non-contributory. TECHNIQUE: Digital bilateral breast bharathi (3D mammographic acquisition) in the CC and MLO projections. 2-D mediolateral oblique (MLO) and craniocaudad (CC) views of both breasts were obtained. CAD: Full Field Digital Mammography with Computer Added Detection was performed. COMPARISON: Comparison is made with prior study February 20, 2022 and February 10, 2021. FINDINGS: Breast Composition: The breasts are heterogeneously dense, which may obscure small masses. Stable 2 cm x 2 cm well-defined nodule in the inferior slightly medial aspect of the left breast. No other significant abnormalities are identified. There has been no significant change since the prior study. BI/SCRN MAMM (CAD)W/BHARATHI BILAT IMPRESSION: Stable bilateral screening mammogram. Yearly follow-up mammogram recommended. (A) ASSESSMENT CATEGORY: BIRADS Category 2: Benign. A letter regarding these results will be sent to the patient by the facility within 30 days. Approximately 10% of breast cancers are not detected by mammography. A normal mammogram should not delay biopsy of a clinically suspicious abnormality. [id number] Electronically Signed: Terrell Mars MD at 10:12 EST ,
== END | disposition home or self-care (01) ==
LOC: OPBI 13:05
PROVIDERS: PCP Nurse Practitioner Family; Referring Provider Nurse Practitioner Family; Visit Provider Nurse Practitioner Family
DX: Z12.31 Encounter for screening mammogram for malignant neoplasm of breast (principal)
CPT/HCPCS: 77063; 77067

== ENCOUNTER → 2023-04-29 | Outpatient (CLI) | payer MEDICARE, SELFPAY ==
[2023-04-29 15:35] LABS: Absolute Lymphocyte Count 2.17 X10^3/uL (0.83-4.51); Basophil% 1.4 % (0-1); Eosinophil# 0.28 X10^3/uL; Eosinophils% 3.9 % (0-5); Hemoglobin 14.5 g/dL (12.0-15.0); Lymphocyte # 2.17 X10^3/ul (0.83-4.51); Lymphocyte % 30.3 % (19-41); Mean Corp Hgb Conc 30.2 g/dL (32-36); Mean Corpuscular Hgb 29.2 pg (27.0-32.0); Mean Corpuscular Volume 96.8 fL (81-99); Mean Platelet Vol. 12.7 fl (6.2-12.0); Monocyte# 0.64 X10^3/uL; Monocyte% 8.9 % (0-10); NRBC Flagged by Analyzer 0 % (0-5); Neutrophil # 3.96 X10^3/uL (2.7-7.7); Neutrophil % 55.2 % (47-70); Platelet Count 198 K/mm3 (150-450); RBC Distribution Width CV 13.4 % (11.6-14.6); RBC Distribution Width SD 48.1 fl (35.1-43.9); Red Blood Count 4.96 M/mm3 (4.2-5.4); White Blood Count 7.2 K/mm3 (4.4-11.0)
[2023-04-29 15:56] LABS: ALB/GLOB Ratio 1.1 RATIO (0.9-2.4); AST(SGOT) 25 U/L (15-37); Alanine Aminotransfer ALT/SGPT 26 U/L (13-56); Albumin, Serum 4.1 g/dL (3.2-5.0); Alkaline Phosphatase 62 U/L (45-117); Anion Gap 8 (5-15); BUN 23 mg/dL (7-18); Calcium,Total 9.3 mg/dL (8.5-10.1); Chloride 101 mmol/L (98-107); Creatinine, Serum 0.96 mg/dL (0.55-1.02); EST Glomerular Filtration Rate 60 mL/min (>60); Est Glom Filt Rate - Afr Amer 72 mL/min (>60); Globulin 3.8 g/dL (2.2-4.2); Glucose 100 mg/dL (74-106); Protein, Total 7.9 g/dL (6.4-8.2); Sodium Level 138 mmol/L (136-145)
== END | disposition home or self-care (01) ==
LOC: BFHLAB 11:45
PROVIDERS: PCP Nurse Practitioner Family; Visit Provider Internal Medicine Rheumatology
DX: M06.4 Inflammatory polyarthropathy (principal); Z79.899 Other long term (current) drug therapy
CPT/HCPCS: 36415; 80053; 85025

== ENCOUNTER → 2023-07-24 | Outpatient (CLI) | payer MEDICARE, SELFPAY ==
[2023-07-24 15:24] LABS: Absolute Lymphocyte Count 1.44 X10^3/uL (0.83-4.51); Absolute Neutrophil Count 3.6 X10^3/uL (2.0-7.7); Basophil% 1.7 % (0-1); Eosinophil# 0.26 X10^3/uL; Eosinophils% 4.4 % (0-5); Hematocrit 47.1 % (37-47); Hemoglobin 14.7 g/dL (12.0-15.0); Lymphocyte # 1.44 X10^3/ul (0.83-4.51); Lymphocyte % 24.4 % (19-41); Mean Corp Hgb Conc 31.2 g/dL (32-36); Mean Corpuscular Hgb 29.3 pg (27.0-32.0); Mean Platelet Vol. 13.3 fl (6.2-12.0); Monocyte# 0.53 X10^3/uL; NRBC Flagged by Analyzer 0 % (0-5); Neutrophil # 3.57 X10^3/uL (2.7-7.7); Neutrophil % 60.3 % (47-70); Platelet Count 170 K/mm3 (150-450); RBC Distribution Width CV 13.9 % (11.6-14.6); RBC Distribution Width SD 48.2 fl (35.1-43.9); Red Blood Count 5.01 M/mm3 (4.2-5.4); White Blood Count 5.9 K/mm3 (4.4-11.0)
[2023-07-24 15:35] LABS: ALB/GLOB Ratio 1.3 RATIO (0.9-2.4); AST(SGOT) 23 U/L (15-37); Alanine Aminotransfer ALT/SGPT 25 U/L (13-56); Albumin, Serum 4.5 g/dL (3.2-5.0); Alkaline Phosphatase 62 U/L (45-117); Anion Gap 5 (5-15); BUN 22 mg/dL (7-18); Calcium,Total 9.6 mg/dL (8.5-10.1); Chloride 103 mmol/L (98-107); Creatinine, Serum 1.16 mg/dL (0.55-1.02); EST Glomerular Filtration Rate 48 mL/min (>60); Est Glom Filt Rate - Afr Amer 58 mL/min (>60); Globulin 3.4 g/dL (2.2-4.2); Glucose 99 mg/dL (74-106); Potassium 4.4 mmol/L (3.5-5.1); Protein, Total 7.9 g/dL (6.4-8.2); Sodium Level 139 mmol/L (136-145)
[2023-07-24 15:45] LABS: BNP,B-Type NATRIURETIC PEPTIDE 200.5 pg/mL (0-100)
== END | disposition home or self-care (01) ==
LOC: BFHLAB 13:29
PROVIDERS: PCP Family Medicine; Visit Provider Family Medicine
DX: Z51.81 Encounter for therapeutic drug level monitoring (principal); I50.31 Acute diastolic (congestive) heart failure; R06.00 Dyspnea, unspecified
CPT/HCPCS: 36415; 80053; 83880; 85025

== ENCOUNTER → 2023-08-01 | Outpatient (CLI) | payer MEDICARE, SELFPAY | END | disposition home or self-care (01) | LOC: PSN 09:40 | PROVIDERS: PCP Family Medicine; Referring Provider Family Medicine; Visit Provider Family Medicine | DX: R06.09 Other forms of dyspnea (principal) | CPT/HCPCS: 94060; 94726; 94729 ==

== ENCOUNTER → 2023-08-05 | Outpatient (CLI) | payer MEDICARE, SELFPAY ==
--- NOTE | 2023-08-05 10:22 | RAD_ITS ---
HISTORY: DYSPNEA. TECHNIQUE: XR Chest 2 Views. COMPARISON: 12/16/2021. FINDINGS: CARDIOMEDIASTINAL BORDERS: Cardiac silhouette within normal limits in size. Mediastinal contour unremarkable with calcification of the aortic knob. LUNGS: Radiographically clear. PLEURA: No pleural effusion or pneumothorax seen. OSSEOUS STRUCTURES: Degenerative change. RAD/Chest PA and Lateral IMPRESSION: No acute cardiopulmonary process identified. Electronically Signed: Janelle Salinas MD at 9:25 EDT ,
== END | disposition home or self-care (01) ==
LOC: RAD 10:16
PROVIDERS: PCP Family Medicine; Referring Provider Family Medicine; Visit Provider Family Medicine
DX: R06.00 Dyspnea, unspecified (principal)
CPT/HCPCS: 71046

== ENCOUNTER → 2023-10-31 | Outpatient (CLI) | payer MEDICARE, SELFPAY ==
[2023-10-31 12:24] LABS: Absolute Lymphocyte Count 1.55 X10^3/uL (0.83-4.51); Absolute Neutrophil Count 4.5 X10^3/uL (2.0-7.7); Basophil# 0.05 X10^3/uL; Basophil% 0.7 % (0-1); Eosinophil# 0.02 X10^3/uL; Eosinophils% 0.3 % (0-5); Hematocrit 44.8 % (37-47); Hemoglobin 13.9 g/dL (12.0-15.0); Lymphocyte # 1.55 X10^3/ul (0.83-4.51); Lymphocyte % 22.3 % (19-41); Mean Corpuscular Hgb 28.6 pg (27.0-32.0); Mean Corpuscular Volume 92.2 fL (81-99); Mean Platelet Vol. 13.3 fl (6.2-12.0); Monocyte# 0.81 X10^3/uL; Monocyte% 11.6 % (0-10); NRBC Flagged by Analyzer 0 % (0-5); Neutrophil # 4.51 X10^3/uL (2.7-7.7); Neutrophil % 64.8 % (47-70); POSITIVE COUNT YES; Platelet Count 176 K/mm3 (150-450); RBC Distribution Width CV 13.3 % (11.6-14.6); RBC Distribution Width SD 45.1 fl (35.1-43.9); Red Blood Count 4.86 M/mm3 (4.2-5.4)
[2023-10-31 12:45] LABS: ALB/GLOB Ratio 0.8 RATIO (0.9-2.4); AST(SGOT) 27 U/L (15-37); Alanine Aminotransfer ALT/SGPT 25 U/L (13-56); Albumin, Serum 3.6 g/dL (3.2-5.0); Alkaline Phosphatase 56 U/L (45-117); Anion Gap 5 (5-15); BUN 21 mg/dL (7-18); BUN/Creat Ratio 18.6 RATIO (10-20); Calcium,Total 10.2 mg/dL (8.5-10.1); Chloride 101 mmol/L (98-107); Creatinine, Serum 1.13 mg/dL (0.55-1.02); EST Glomerular Filtration Rate 49 mL/min (>60); Est Glom Filt Rate - Afr Amer 60 mL/min (>60); Globulin 4.3 g/dL (2.2-4.2); Glucose 127 mg/dL (74-106); Potassium 4.1 mmol/L (3.5-5.1); Protein, Total 7.9 g/dL (6.4-8.2); Sodium Level 136 mmol/L (136-145)
[2023-10-31 12:50] LABS: Differential Indicated SCAN CRITERIA MET
[2023-10-31 12:51] LABS: Platelet Morphology LARGE
== END | disposition home or self-care (01) ==
PROVIDERS: PCP Family Medicine; Referring Provider Internal Medicine Rheumatology; Visit Provider Internal Medicine Rheumatology
DX: M06.4 Inflammatory polyarthropathy (principal); Z79.899 Other long term (current) drug therapy
CPT/HCPCS: 36415; 80053; 85025

== ENCOUNTER → 2024-04-07 | Outpatient (CLI) | payer MEDICARE, SELFPAY ==
--- NOTE | 2024-04-07 11:09 | RAD_ITS ---
STUDY: X-RAY CHEST REASON FOR EXAM: Female, 78 years old. SHORTNESS OF BREATH TECHNIQUE: PA and lateral views of the chest. COMPARISON: 08/05/2023 FINDINGS: The lungs are clear and expanded. Small right pleural effusion. There is moderate cardiac enlargement. Normal mediastinum and jamia. Normal visualized pulmonary arteries. Normal visualized aortic arch and descending thoracic aorta. Normal visualized thoracic spine. Normal visualized ribs, clavicles, and shoulders. There is no demonstrated abnormality of the visualized soft tissue structures of the upper abdomen. RAD/Chest PA and Lateral IMPRESSION: Small right pleural effusion. Electronically Signed: Sudhakar Cruz MD at 11:58 EST ,
== END | disposition home or self-care (01) ==
LOC: MTRAD 11:07
PROVIDERS: PCP Family Medicine; Referring Provider Nurse Practitioner Family; Visit Provider Nurse Practitioner Family
DX: R06.02 Shortness of breath (principal)
CPT/HCPCS: 71046

== ENCOUNTER 2024-04-16 17:48 | Inpatient (IN) | payer MEDICARE, SELFPAY ==
[2024-04-16] VITALS (8 sets, daily range): BP systolic 115–148; BP diastolic 67–91; PULSE 112–123; RESP 12–28; TEMP 36.8–37.1; O2SAT 95–99; BMI 32.0; BMI 30.9
--- NOTE | 2024-04-16 18:50 | EKG12_ITS ---
Test Reason : EDEMA Blood Pressure : */* mmHG Vent. Rate : 112 BPM Atrial Rate : 112 BPM P-R Int : 168 ms QRS Dur : 90 ms QT Int : 352 ms P-R-T Axes : 63 -30 92 degrees QTcB Int : 480 ms Sinus tachycardia with Premature supraventricular complexes Left axis deviation Minimal voltage criteria for LVH, may be normal variant ( R in aVL ) Nonspecific T wave abnormality Abnormal ECG Confirmed by STEVE HAMILTON, DAWOOD ([id number]), medical editor JUANITA GUERRIER ([id number]) on 04/17/2024 9:47:19 AM Referred By: Reynaldo Hernandez Confirmed By: DAWOOD WILSON MD
--- NOTE | 2024-04-16 18:51 | EX.ED.DYSGE1 ---
HPI History of Present Illness Chief Complaint: Edema Informant: patient and family (x2) Narrative Narrative: 79-year-old female presenting with edema in both of her feet for the past several days, she states that family members noticed it more than she did. For the last several months she has been having dyspnea with exertion that has been a little worse lately so she had an outpatient chest x-ray a week or 2 ago that showed a small pleural effusion and she was referred to pulmonology, she has not seen them yet. She denies having any chest pain, unexplained syncope. For the last 2 weeks she has had some nausea, some diarrhea and abdominal bloating that is not as bad now as it had been she saw her doctor for that was given some Zofran. She has no history of liver problems that she knows of. [facility] Medical History Polymyalgia rheumatica Dyspnea on exertion Rheumatoid arthritis Gout Hypothyroidism Essential hypertension Type 2 diabetes mellitus Home Medications ?Medication ?Instructions ?Recorded ?Last Taken ?Type gabapentin 100 mg capsule 100 mg PO BID 04/30/15 Unknown History triamterene 37.5 1 cap PO DAILY 04/30/15 Unknown History mg-hydrochlorothiazide 25 mg capsule allopurinol 100 mg tablet 200 mg PO DAILY 10/18/20 Unknown History levothyroxine 100 mcg tablet 100 mcg PO DAILY 10/18/20 11/15/20 History acetaminophen 500 mg tablet 500 mg PO Q6H PRN Pain 10/20/20 Unknown History albuterol sulfate 90 mcg/actuation 1 puff inhalation PRN shortness of 04/16/24 Unknown History aerosol inhaler breath or wheezing calcium 600 mg (as carbonate)-vit 1 tab PO DAILY 04/16/24 Unknown History D3 20 mcg (800 unit) chewable tablet (Caltrate plus D) hydroxychloroquine 200 mg tablet 200 mg PO BID 04/16/24 Unknown History (Plaquenil) mometasone-formoterol HFA 100 2 puff inhalation BID 04/16/24 Unknown History mcg-5 mcg/actuation aerosol inhaler (Dulera) ondansetron 4 mg disintegrating 4 - 8 mg PO Q6H PRN PRN nausea 04/16/24 Unknown History tablet Allergy/AdvReac Type Severity Reaction Status Date / Time amoxicillin AdvReac GI upset, Verified 04/16/24 17:51 Nausea and vomiting Family History Mother History of DVT (deep vein thrombosis) Hypertension Father Cancer Lung Sister CAD (coronary artery disease) History of coronary artery bypass surgery Surgical History History of left heart catheterization (LHC) (~11/15/20) H/O right knee surgery History of carpal tunnel surgery History of hysterectomy History of appendectomy Social History Smoking Status: Never smoker alcohol intake: current details: occasional substance use type: does not use caffeine: Yes Type: coffee Number of servings: 3 and tea ROS ROS ED Constitutional Constitutional ED: Denies chills, fever(s) or sweats Eyes Eyes: Denies change in vision or diplopia ENT ENT ED: Denies rhinorrhea or sore throat Cardiovascular Cardiovascular: Reports leg edema; Denies chest pain, leg ulcers, lightheadedness, orthopnea, orthostatic symptoms, palpitations, paroxysmal nocturnal dyspnea, racing heartbeat or syncope Respiratory/Chest Respiratory/Chest: Reports dyspnea on exertion; Denies cough, orthopnea or paroxysmal nocturnal dyspnea Gastrointestinal Gastrointestinal: Denies abdominal pain, diarrhea, nausea or vomiting Genitourinary Genitourinary ED: Denies dysuria or hematuria Musculoskeletal Musculoskeletal: Denies back pain or neck pain Integumentary Denies abscess or rash Neurologic Neurologic: Denies headache(s), paresthesias or weakness Psychiatric Psychiatric: Denies anxiety or suicidal thoughts EXAM Physical Exam Const Vital Signs: 04/16/24 17:51 04/16/24 18:19 04/16/24 18:19 Temperature 98.7 F Temperature Source Oral Pulse Rate 123 H 119 H Respiratory Rate 12 24 H Respiratory Effort Short of Breath Respiratory Pattern Normal Blood Pressure 148/91 H 141/71 H Blood Pressure Mean 110 94 Pulse Ox 99 96 Oxygen Delivery Method Room Air Room Air 04/16/24 19:10 04/16/24 20:00 04/16/24 22:03 Temperature Temperature Source Pulse Rate 118 H 112 H Respiratory Rate 24 H 28 H Respiratory Effort Respiratory Pattern Blood Pressure 115/67 118/78 Blood Pressure Mean 83 91 Pulse Ox 97 97 96 Oxygen Delivery Method Room Air Room Air Room Air 04/16/24 22:15 Temperature 98.3 F Temperature Source Pulse Rate 115 H Respiratory Rate 25 H Respiratory Effort Respiratory Pattern Blood Pressure 122/84 H Blood Pressure Mean 96 Pulse Ox 95 Oxygen Delivery Method Positive well nourished and well developed General Appearance ED: well developed and NAD HEENT Reports moist mucous membranes normocephalic and atraumatic Eyes PERRL and EOMs intact bilaterally Neck full ROM and supple Resp normal respiratory effort and clear to auscultation bilaterally Cardio regular rate, regular rhythm and no murmurs Rate: tachycardic GI non-tender and non-distended Auscultation: normoactive bowel sounds Palpation: soft Back/Spine no CVA tenderness General Back: other FROM Extremity normal to inspection Extremity Narrative: No calf tenderness or pretibial edema. No signs of stasis dermatitis. General Extremety ED: Yes edema; Negative for pulses abnormal or tenderness General Extremity: edema bilateral lower extremity Details: mild (Feet only, symmetric); Negative for pulses abnormal Neuro oriented x3, CN's II-XII intact bilaterally and no sensory deficits noted Sensorium / Orientation: awake and alert Motor Exam: strength 5/5 throughout Skin no rashes or lesions noted and no wounds MDM MDM MDM Narrative Medical decision making narrative: I reviewed the patient's chest x-ray she had around 9 days ago, showed a small left pleural effusion. Clinically I do not hear it. It is possible she is symptomatic from that, and it may be related to the third spacing she is having in her legs. Venous insufficiency is in the differential diagnosis as well, congestive heart failure, liver failure or cirrhosis, or renal failure. She had a heart cath October 2020 for dyspnea and an abnormal stress echo, at that time she had normal coronaries as well as normal LV size, wall motion, and systolic function with an EF of 55%. Today, two-view chest x-ray shows some cephalization/congestion but no effusion on my interpretation and radiology is in agreement. Her labs show an elevated BNP, troponin is at the high end of normal I repeated that 2 hours later and it is unchanged. Her EKG shows no acute injury pattern but she does have a resting tachycardia in the 1 10-1 20 range. When we ambulated her, she was dyspneic with little exertion, did not become hypoxic, but her heart rate went up to 140. She would back to the room and rested and went back to the 118 range. I discussed with cardiology Dr. Yang, he agrees that under the circumstances inpatient workup is warranted and reasonable. Discussed with hospitalist and family patient. History & Record Review Additional record(s) reviewed:: Prior outpatient record Lab Data Attestation: I reviewed the patient's lab results. Labs: Laboratory Results - last 24 hr 04/16/24 04/16/24 19:10 21:16 WBC 8.9 RBC 4.64 Hgb 13.5 Hct 42.5 MCV 91.6 MCH 29.1 MCHC 31.8 L RDW Std Deviation 50.1 H RDW Coeff of Jonnathan 14.9 H Plt Count 206 MPV 12.3 H Immature Gran % (Auto) 0.700 Neut % (Auto) 81.0 H Lymph % (Auto) 9.8 L [place] % (Auto) 6.7 Eos % (Auto) 1.2 Baso % (Auto) 0.6 Absolute Neuts (auto) 7.2 Absolute Lymphs (auto) 0.87 Nucleated RBC % 0 Sodium 138 Potassium 3.9 Chloride 100 Carbon Dioxide 28.0 Anion Gap 10 BUN 15 Creatinine 1.01 Estim Creat Clear Calc 46.77 Est GFR (MDRD) Af Amer 68 Est GFR (MDRD) Non-Af 56 L BUN/Creatinine Ratio 14.9 Glucose 142 H Calcium 9.1 Total Bilirubin 1.10 H AST 33 ALT 40 Alkaline Phosphatase 57 Troponin I High Sens 43 43 B-Natriuretic Peptide 899.8 H Total Protein 6.9 Albumin 3.6 Globulin 3.3 Albumin/Globulin Ratio 1.1 Radiography Diagnostic Testing: Clinical Impression(s) from Imaging Studies Chest X-Ray 04/16/24 19:20 IMPRESSION: Slight increase in interstitial markings represent edema and/or infection. Chronic interstitial lung changes. Electronically Signed: Ej Araujo MD at 20:25 EST , Rhythm Strip Rhythm Strip: Sinus Tach Rate: 115 Ectopy: None EKG Initial EKG: Attestation: I personally reviewed and interpreted this EKG as follows: Interpretation: No Acute Injury Pattern, Sinus Tachycardia and LAFB Prior EKG tracings: available for review Prior: Changed (Left axis new ) Management Discussion w/another healthcare provider: Hospitalist and Operations Support Representative (Cardiology) Discharge Plan Dx/Rx/DC Orders Clinical Impression: Acute respiratory insufficiency, New onset of congestive heart failure Disposition Disposition: Acute Care Hospital [facility]
[2024-04-16 19:15] LABS: Absolute Lymphocyte Count 0.87 X10^3/uL (0.83-4.51); Absolute Neutrophil Count 7.2 X10^3/uL (2.0-7.7); Basophil# 0.05 X10^3/uL; Basophil% 0.6 % (0-1); Eosinophil# 0.11 X10^3/uL; Eosinophils% 1.2 % (0-5); Hematocrit 42.5 % (37-47); Hemoglobin 13.5 g/dL (12.0-15.0); Lymphocyte # 0.87 X10^3/ul (0.83-4.51); Lymphocyte % 9.8 % (19-41); Mean Corp Hgb Conc 31.8 g/dL (32-36); Mean Corpuscular Hgb 29.1 pg (27.0-32.0); Mean Corpuscular Volume 91.6 fL (81-99); Mean Platelet Vol. 12.3 fl (6.2-12.0); Monocyte% 6.7 % (0-10); NRBC Flagged by Analyzer 0 % (0-5); Neutrophil # 7.22 X10^3/uL (2.7-7.7); Platelet Count 206 K/mm3 (150-450); RBC Distribution Width CV 14.9 % (11.6-14.6); RBC Distribution Width SD 50.1 fl (35.1-43.9); Red Blood Count 4.64 M/mm3 (4.2-5.4); White Blood Count 8.9 K/mm3 (4.4-11.0)
--- NOTE | 2024-04-16 19:20 | RAD_ITS ---
INDICATION: sob EXAMINATION/TECHNIQUE: X-RAY - XR Chest 2 Views COMPARISON: 04/07/2024. FINDINGS: Slight increase in interstitial markings. Tortuous and calcified thoracic aorta. The heart is mildly enlarged. No pleural effusion or pneumothorax. Degenerative changes of the thoracic spine. RAD/Chest PA and Lateral IMPRESSION: Slight increase in interstitial markings represent edema and/or infection. Chronic interstitial lung changes. Electronically Signed: Ej Araujo MD at 20:25 [facility] ,
[2024-04-16 19:34] LABS: ALB/GLOB Ratio 1.1 RATIO (0.9-2.4); AST(SGOT) 33 U/L (15-37); Alanine Aminotransfer ALT/SGPT 40 U/L (13-56); Albumin, Serum 3.6 g/dL (3.2-5.0); Alkaline Phosphatase 57 U/L (45-117); Anion Gap 10 (5-15); BUN 15 mg/dL (7-18); BUN/Creat Ratio 14.9 RATIO (10-20); Calcium,Total 9.1 mg/dL (8.5-10.1); Chloride 100 mmol/L (98-107); Creatinine, Serum 1.01 mg/dL (0.55-1.02); EST Glomerular Filtration Rate 56 mL/min (>60); Est Glom Filt Rate - Afr Amer 68 mL/min (>60); Estimated Creatinine Clearance 46.77 ml/min; Globulin 3.3 g/dL (2.2-4.2); Glucose 142 mg/dL (74-106); Potassium 3.9 mmol/L (3.5-5.1); Protein, Total 6.9 g/dL (6.4-8.2); Sodium Level 138 mmol/L (136-145); Troponin-I HS 43 pg/mL (3.0-54.0)
[2024-04-16 19:35] LABS: BNP,B-Type NATRIURETIC PEPTIDE 899.8 pg/mL (0-100)
[2024-04-16 21:40] LABS: Troponin-I HS 43 pg/mL (3.0-54.0)
--- NOTE | 2024-04-16 22:40 | PCM.HP.STD ---
[facility] - General General Date of Admission: 04/16/24 Date of Service: 04/16/24 Chief Complaint: Increasing DE LA GARZA and LE Edema. HPI Narrative SHIRA CHEW, is a 79 F with a past medical history of essential hypertension; on triamterene-HCTZ, hypothyroidism; on levothyroxine, obesity; with BMI of 32 this admission, DM-2; of unknown control, diabetic neuropathy; on gabapentin, history of asthma; on mometasone-formoterol, RA and PMR; on hydroxychloroquine, history of gout; on allopurinol, history of LHC (2020), history of appendectomy, history of hysterectomy, OA; with history of Right knee surgery and recent evaluation by her PCP for DE LA GARZA with CXR that revealed small pleural effusions with patient ordered a consultation with pulmonology that is still pending at this time who presents to [facility] ER complaining of increasing DE LA GARZA and lower extremity edema. Mrs. Chew reports her symptoms began approximately 2 weeks prior to admission with the gradual-onset of progressively worsening dyspnea on exertion. She also admits to intermittent nausea, mild diarrhea and abdominal bloating that her physician treated with prn ondansetron with noted modest improvement. She denies a history of CHF, chest pain, syncope/near syncope, palpitations or heart racing. She admits to increased sodium and fluid intake over the holidays and she states her SOB was not improved with her inhalers. In the ER she was noted to have a significantly elevated BNP of 899.8 pg/mL with ~1+LE edema and confirmatory radiographic evidence of increased interstitial markings consistent with suspected AE of CHF that is apparently new complicated by clinical evidence of Respiratory Insufficiency with navy fighter pilot on-call recommending admission to the hospitalist service with formal consultation pending in the AM and appreciated in advance. She was then admitted to the PCU for ongoing care for a stay that is expected to extend beyond 2 midnights. [facility] Medical History Polymyalgia rheumatica Dyspnea on exertion Rheumatoid arthritis Gout Hypothyroidism Essential hypertension Type 2 diabetes mellitus Home Medications ?Medication ?Instructions ?Recorded ?Last Taken ?Type gabapentin 100 mg capsule 100 mg PO BID 04/30/15 Unknown History triamterene 37.5 1 cap PO DAILY 04/30/15 Unknown History mg-hydrochlorothiazide 25 mg capsule allopurinol 100 mg tablet 200 mg PO DAILY 10/18/20 Unknown History levothyroxine 100 mcg tablet 100 mcg PO DAILY 10/18/20 11/15/20 History acetaminophen 500 mg tablet 500 mg PO Q6H PRN Pain 10/20/20 Unknown History albuterol sulfate 90 mcg/actuation 1 puff inhalation PRN shortness of 04/16/24 Unknown History aerosol inhaler breath or wheezing calcium 600 mg (as carbonate)-vit 1 tab PO DAILY 04/16/24 Unknown History D3 20 mcg (800 unit) chewable tablet (Caltrate plus D) hydroxychloroquine 200 mg tablet 200 mg PO BID 04/16/24 Unknown History (Plaquenil) mometasone-formoterol HFA 100 2 puff inhalation BID 04/16/24 Unknown History mcg-5 mcg/actuation aerosol inhaler (Dulera) ondansetron 4 mg disintegrating 4 - 8 mg PO Q6H PRN PRN nausea 04/16/24 Unknown History tablet Allergy/AdvReac Type Severity Reaction Status Date / Time amoxicillin AdvReac GI upset, Verified 04/16/24 17:51 Nausea and vomiting Family History Mother History of DVT (deep vein thrombosis) Hypertension Father Cancer Lung Sister CAD (coronary artery disease) History of coronary artery bypass surgery Surgical History History of left heart catheterization (LHC) (~11/15/20) H/O right knee surgery History of carpal tunnel surgery History of hysterectomy History of appendectomy Social History Smoking Status: Never smoker alcohol intake: current details: occasional substance use type: does not use caffeine: Yes Type: coffee Number of servings: 3 and tea ROS ROS Narrative Review of Systems: Constitutional: Patient denies fever or chills. Eyes: Patient denies changes in vision or discharge from eyes. ENT: Patient denies runny nose, sore throat or ear pain. Resp: Patient admits to DE LA GARZA but she denies cough. CV: Patient admits to LE edema but denies chest pain, heart racing or palpitations. GI: Patient admits to loose stools with mild nausea and abdominal bloating previously but this has improved after prn ondansetron as per HPI. : Patient denies dysuria or hematuria. MSK: Patient denies arthralgias or myalgias. Skin: Patient denies rash, abscess or jaundice. Psych: Patient denies symptoms of uncontrolled depression or anxiety. Neuro: Patient denies headache, paresthesias or focal neurologic deficits. Allergy: Patient denies lip swelling, tongue swelling or rash. Hematology: Patient denies easy bleeding or easy bruisability. Endocrinology: Patient denies polyuria, polydipsia or polyphagia. 14 point ROS otherwise negative except for positives noted above in HPI. Vital Signs Vital Signs Vital Signs: 04/16/24 17:51 04/16/24 18:19 04/16/24 18:19 Temperature 98.7 F Temperature Source Oral Pulse Rate 123 H 119 H Respiratory Rate 12 24 H Respiratory Effort Short of Breath Respiratory Pattern Normal Blood Pressure 148/91 H 141/71 H Blood Pressure Mean 110 94 Pulse Ox 99 96 Oxygen Delivery Method Room Air Room Air 04/16/24 19:10 04/16/24 20:00 04/16/24 22:03 Temperature Temperature Source Pulse Rate 118 H 112 H Respiratory Rate 24 H 28 H Respiratory Effort Respiratory Pattern Blood Pressure 115/67 118/78 Blood Pressure Mean 83 91 Pulse Ox 97 97 96 Oxygen Delivery Method Room Air Room Air Room Air 04/16/24 22:15 Temperature 98.3 F Temperature Source Pulse Rate 115 H Respiratory Rate 25 H Respiratory Effort Respiratory Pattern Blood Pressure 122/84 H Blood Pressure Mean 96 Pulse Ox 95 Oxygen Delivery Method Weight Weight: 186 lb 11.2 oz Body Mass Index (BMI) 32.0 Physical Exam Const alert, oriented x3 and no apparent distress Constitutional Narrative: Obese. General Appearance: cooperative HEENT normocephalic, head/scalp atraumatic, hearing grossly normal bilaterally and moist oral mucous membranes Eyes PERRL and EOMs intact bilaterally Neck no lymphadenopathy and supple Resp Resp Narrative: Bibasilar rales noted with diminished air movement throughout. Auscultation: rales Cardio regular rate and regular rhythm Cardio Narrative: Sinus Tachycardia @ ~115 bpm noted. GI normal to inspection, nondistended, normoactive bowel sounds, soft to palpation, non-tender and non-distended Extremity Extremity Narrative: ~1+ bilateral LE pitting edema. Skin Skin Narrative: Patient denies rash, abscess or jaundice. Neuro oriented x3, CN's II-XII intact bilaterally, moves all extremities and no focal motor deficits Sensorium / Orientation: awake, alert, oriented to person, oriented to place and oriented to time Speech: speech normal Psych affect normal Results Medical Records Data Attestation: I reviewed the patient's medical records Lab / Micro Data Attestation: I reviewed the patient's lab results. 04/16/24 19:10 04/16/24 19:10 Labs: Laboratory Results - last 24 hr 04/16/24 19:10: WBC 8.9, RBC 4.64, Hgb 13.5, Hct 42.5, MCV 91.6, MCH 29.1, MCHC 31.8 L, RDW Std Deviation 50.1 H, RDW Coeff of Jonnathan 14.9 H, Plt Count 206, MPV 12.3 H, Immature Gran % (Auto) 0.700, Neut % (Auto) 81.0 H, Lymph % (Auto) 9.8 L, [place] % (Auto) 6.7, Eos % (Auto) 1.2, Baso % (Auto) 0.6, Absolute Neuts (auto) 7.2, Absolute Lymphs (auto) 0.87, Nucleated RBC % 0, Sodium 138, Potassium 3.9, Chloride 100, Carbon Dioxide 28.0, Anion Gap 10, BUN 15, Creatinine 1.01, Estim Creat Clear Calc 46.77, Est GFR (MDRD) Af Amer 68, Est GFR (MDRD) Non-Af 56 L, BUN/Creatinine Ratio 14.9, Glucose 142 H, Calcium 9.1, Total Bilirubin 1.10 H, AST 33, ALT 40, Alkaline Phosphatase 57, Troponin I High Sens 43, B-Natriuretic Peptide 899.8 H, Total Protein 6.9, Albumin 3.6, Globulin 3.3, Albumin/Globulin Ratio 1.1 04/16/24 21:16: Troponin I High Sens 43 Rhythm Strip Rhythm Strip: Sinus Tach Rate: 115 Ectopy: None Imaging Radiology Impression Chest X-Ray 04/16/24 19:20 IMPRESSION: Slight increase in interstitial markings represent edema and/or infection. Chronic interstitial lung changes. Electronically Signed: Ej Araujo MD at 20:25 EST , Assessment & Plan Assessment/Plan (1) New onset of congestive heart failure: (2) Acute respiratory insufficiency: (3) Essential hypertension: (4) Obesity (BMI 30.0-34.9): (5) Type 2 diabetes mellitus: QUALIFIERS: Diabetes mellitus residential insulin use: without truck terminal manager use Diabetes mellitus complication status: without complication Qualified Code(s): E11.9 - Type 2 diabetes mellitus without complications (6) Hypothyroidism: QUALIFIERS: Hypothyroidism type: unspecified Qualified Code(s): E03.9 - Hypothyroidism, unspecified PLAN: Plan 1. AE of CHF; evidenced by significantly elevated BNP of 899.8 pg/mL with ~1+LE edema and confirmatory radiographic evidence of increased interstitial markings likely due to dietary indiscretion with sodium and increased fluid intake over the holidays - Admit to PCU. Start Lasix 40 mg IV BID with supplemental KCl and magnesium. Start Lopressor 12.5 mg PO daily. Fluid restrict to 1.5L daily and place on low-sodium diet with patient educated about why these dietary recommendations were necessary. Check echocardiogram to evaluate LVEF. Serialize troponin. Finally, we will consult [facility] navy fighter pilot on-call to see this patient on-rounds in the AM for further recommendations with help appreciated in advance. 2. Respiratory Insufficiency attributable to #1 - Wean supplemental oxygen as tolerated. 3. Essential hypertension; on triamterene-HCTZ compounding #1 & #2 - Hold triamterene-HCTZ in favor of Lasix as noted above plus start low-dose Lopressor and titrate as needed. 4. Obesity; with BMI of 32 this admission adding to the medical complexity of #1 - #3 - Weight loss will be recommended. Check TSH. This complicates her case and may hamper recovery. 5. DM-2; of unknown control and diabetic neuropathy; on gabapentin adding to the burden of disease outlined from #1 - #4 - ADA/cardiac diet. FSBS q. AC.HS plus SSI. Check HgbA1c to objectively assess quality of diabetic control. 6. Hypothyroidism; on levothyroxine - Continue levothyroxine as previous and check TSH. 7. History of recently diagnosed suspected asthma; on mometasone-formoterol and prn albuterol - Noted. Patient suspected to have CHF and not asthma as the primary cause for her DE LA GARZA and lower extremity edema with no significant improvement on her inhalers. 8. RA and PMR; on hydroxychloroquine - Maintain current treatment. 9. History of gout; on allopurinol - Stable with no evidence of acute flare. Resume allopurinol as before. 10. History of LHC (2020) after alleged abnormal stress echocardiogram - Noted. 11. History of appendectomy - Noted. 12. History of hysterectomy - Noted. 13. OA; with history of Right knee surgery - Give Tylenol prn. 14. DVT prophylaxis - Lovenox 40 mg sq daily. Total time: Approximately (but not less than) 75 minutes. Charges/Coding Visit Charges Inpatient E&M: 20499 In Hosp L3
--- NOTE | 2024-04-16 23:13 | ECHOD_ITS ---
Reason For Study: CHF Procedure This was a 2D Doppler, Color Flow transthoracic echocardiogram. The study was technically difficult. Contrast injection was performed. Exam performed portable in patient room. Left Ventricle Moderately dilated left ventricle. The left ventricular ejection fraction is 10 %. Stage 2 diastolic dysfunction. There is severe global hypokinesis of the left ventricle. Right Ventricle Normal RV size. Normal systolic function. Atria Normal left atrium. Normal right atrium. Mitral Valve Normal mitral valve. Mild (1+) eccentric mitral valve insufficiency. Tricuspid Valve Normal tricuspid valve. Aortic Valve Trisinus/trileaflet aortic valve. Mild focal aortic valve calcification. Pulmonic Valve Normal pulmonic valve. Great Vessels Normal aortic root. The pulmonary artery is normal size. Inferior vena cava collapse with respiration. Pericardium/Pleural Small (<1.0 cm) pericardial effusion. Medication Diluted definity 2ml given slow IV push to enhance endocardial definition. MMode/2D Measurements & Calculations LVIDd: 6.3 cm IVSd: 0.93 cm LAV(MOD-bp): 48.8 ml LVIDs: 6.2 cm LVPWd: 0.75 cm FS: 2.0 % LAV(MOD-bp) Indexed: 26.5 ml/m2 LAV(MOD-sp2): 44.7 ml LAV(MOD-sp4): 43.4 ml SV(MOD-sp4): 17.4 ml SV(sp4-el): 16.7 ml LVAd ap4: 39.7 cm2 LVLd ap4: 8.9 cm SI(MOD-sp4): 9.4 ml/m2 EDV(MOD-sp4): 148.2 ml EDV(sp4-el): 149.8 ml LVAs ap4: 36.3 cm2 LVLs ap4: 8.4 cm ESV(MOD-sp4): 130.8 ml ESV(sp4-el): 133.1 ml EF(MOD-sp4): 11.7 % EF(sp4-el): 11.1 % LA dimension(2D): 4.0 cm LA A4 area: 18.2 cm2 RA A4 area: 12.4 cm2 Time Measurements MV dec time: 0.10 sec Doppler Measurements & Calculations MV E max isaias: 117.0 cm/sec Lat Peak E' Isaias: 5.0 cm/sec Med Peak E' Isaias: 4.0 cm/sec MV A max isaias: 81.7 cm/sec E/E' lat: 23.2 E/E' med: 28.9 MV E/A: 1.4 MV V2 max: 129.5 cm/sec MV dec slope: 1178 cm/sec2 Ao V2 max: 104.0 cm/sec MV max P.7 mmHg Ao max P.3 mmHg MV V2 mean: 68.9 cm/sec Ao V2 mean: 75.1 cm/sec MV mean P.5 mmHg Ao mean P.5 mmHg MV V2 VTI: 20.7 cm Ao V2 VTI: 16.5 cm AV (velocity ratio): 0.84 LV V1 max: 87.2 cm/sec PA V2 max: 92.3 cm/sec LV V1 max P.0 mmHg PA V2 mean: 67.2 cm/sec LV V1 mean P.7 mmHg LV V1 mean: 60.0 cm/sec LV V1 VTI: 13.8 cm ECHO/Echo Complete W/ Contrast Interpretation Summary The left ventricular ejection fraction is 10 %. Moderately dilated left ventricle. Mild (1+) eccentric mitral valve insufficiency. Stage 2 diastolic dysfunction. Ordering Physician: Christian White Referring Physician: Reynaldo Hernandez Performed By: Monica Lozano RCS
[2024-04-17] VITALS (10 sets, daily range): BP systolic 93–129; BP diastolic 53–76; PULSE 80–112; RESP 16–18; TEMP 36.3–36.7; O2SAT 93–97; BMI 30.9
[2024-04-17] MEDS: Furosemide 40 MG/4 ML Vial IV ×2 (00:32→08:28)
[2024-04-17 01:19] LABS: Troponin-I HS 46 pg/mL (3.0-54.0)
[2024-04-17] MEDS: Metoprolol Tartrate 25 MG Tablet 12.5 MG PO ×2 (01:57→08:28)
[2024-04-17] MEDS: Levothyroxine 100 MCG Tablet PO (06:12)
[2024-04-17] MEDS: Albuterol 2.5 MG/3 ML VIAL.NEB. INHALATION ×2 (07:10→12:55)
[2024-04-17] MEDS: Budesonide Respules 0.5 MG/2 ML AMPUL.NEB. INHALATION ×2 (07:10→20:36)
[2024-04-17 07:47] LABS: Absolute Lymphocyte Count 1.39 X10^3/uL (0.83-4.51); Absolute Neutrophil Count 4.9 X10^3/uL (2.0-7.7); Basophil# 0.05 X10^3/uL; Basophil% 0.7 % (0-1); Eosinophil# 0.12 X10^3/uL; Eosinophils% 1.7 % (0-5); Hematocrit 40.2 % (37-47); Lymphocyte # 1.39 X10^3/ul (0.83-4.51); Lymphocyte % 19.2 % (19-41); Mean Corp Hgb Conc 32.3 g/dL (32-36); Mean Corpuscular Hgb 29.2 pg (27.0-32.0); Mean Corpuscular Volume 90.3 fL (81-99); Monocyte# 0.71 X10^3/uL; Monocyte% 9.8 % (0-10); NRBC Flagged by Analyzer 0 % (0-5); Neutrophil # 4.94 X10^3/uL (2.7-7.7); Platelet Count 200 K/mm3 (150-450); RBC Distribution Width CV 14.9 % (11.6-14.6); Red Blood Count 4.45 M/mm3 (4.2-5.4); White Blood Count 7.3 K/mm3 (4.4-11.0)
[2024-04-17] MEDS: Potassium Chloride Oral Tablet 20 MEQ PO ×2 (08:27→21:55)
[2024-04-17] MEDS: Magnesium Chloride 64 MG Delay Rel.Tablet 128 MG PO ×2 (08:28→21:54)
[2024-04-17] MEDS: Allopurinol 100 MG Tablet 200 MG PO (08:28)
[2024-04-17] MEDS: Calcium Carb/Vitamin D 1 TABLET Tablet PO (08:28)
[2024-04-17] MEDS: Hydroxychloroquine 200 MG Tablet PO ×2 (08:28→21:54)
[2024-04-17] MEDS: Gabapentin 100 MG Capsule PO ×2 (08:28→21:55)
[2024-04-17] MEDS: Enoxaparin 40 MG/0.4 ML Syringe SC (08:30)
[2024-04-17 09:11] LABS: BNP,B-Type NATRIURETIC PEPTIDE 1830.5 pg/mL (0-100)
[2024-04-17 09:42] LABS: ALB/GLOB Ratio 1.1 RATIO (0.9-2.4); AST(SGOT) 20 U/L (15-37); Alanine Aminotransfer ALT/SGPT 35 U/L (13-56); Albumin, Serum 3.3 g/dL (3.2-5.0); Alkaline Phosphatase 55 U/L (45-117); Anion Gap 5 (5-15); BUN 13 mg/dL (7-18); BUN/Creat Ratio 13.8 RATIO (10-20); Calcium,Total 8.7 mg/dL (8.5-10.1); Chloride 102 mmol/L (98-107); Cholesterol 133 mg/dL (200); Creatinine, Serum 0.94 mg/dL (0.55-1.02); EST Glomerular Filtration Rate 61 mL/min (>60); Est Glom Filt Rate - Afr Amer 74 mL/min (>60); Estimated Creatinine Clearance 47.59 ml/min; Globulin 3.1 g/dL (2.2-4.2); Glucose 109 mg/dL (74-106); High Density Lipoprotein 56 mg/dL; Phosphorus 3.7 mg/dL (2.5-4.9); Potassium 3.5 mmol/L (3.5-5.1); Protein, Total 6.4 g/dL (6.4-8.2); Sodium Level 139 mmol/L (136-145); Triglycerides 104 mg/dL; Very Low Density Lipoprotein 21 mg/dL (5-40)
[2024-04-17 10:56] LABS: Free T3 1.9 pg/mL (2.18-3.98); T4 Total, Thyroxin 8.5 ug/dL (4.8-13.9)
--- NOTE | 2024-04-17 12:51 | CASEMGMT ---
NITA TOM Assessment Face to Face with patient for initial transition planning/care coordination assessment. NITA TOM introduced self and role at [facility], pt voices understanding. Pt is A&Ox4 and is resting comfortably in bed and is calm. Pt son at bedside. Care providers, pharmacy, and demographics verified. Admitting dx: New-Onset CHF LACE Strata: 2 PCP: Mariposa Parker Specialists: Dr. Maurer (RA), Jacob (Pulmonary) Preferred Pharmacy: [facility] Insurance: [facility] Prescription Benefit: Yes LNOK: Dereck Gomez (Son) Living Arrangements: Pt lives alone in a 2 story home with a FFSU and 2 steps to enter ADLs/IADLs: Ind Transportation: Self, family. Denies concerns DME: Pulse ox. Denies further uses or current needs HHC/SNF: Denies history or needs Pt?s goal: Return home Plan: Home, no additional needs. 6-click is 23. PT is ordered and pending. Pt denies the need for HH or OP Tx. Pt EF is 10% and per the MD, the pt is not a candidate for Palliative as she is not currently displaying further symptoms. Pt was educated about [facility] and the pt states that she would be interested in this. TC to Juni at [facility] and Juni states that they do not accept pts that live in [place]. Pt states that she is OK with this and denies further questions, concerns, or needs at this time. Report given to [employer] SAL[employer] CONSULTANT CM. Eduardo Gusman RN, CM
[2024-04-17] MEDS: Carvedilol 3.125 MG TABLET PO (12:54)
[2024-04-17] MEDS: SACUBITRIL/VALSARTAN 24/26 MG TABLET 1 EACH PO (12:54)
--- NOTE | 2024-04-17 14:14 | CON.PCM.CA_ITS ---
Assessment & Plan Assessment/Plan (1) CHF (congestive heart failure), NYHA class III: PLAN: She does present with shortness of breath and likely has congestive heart failure. The etiology is unclear at this time she is hypothyroid but she is tachycardic. An echocardiogram performed today demonstrated an ejection fraction of 10%. 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 She did undergo a cardiac catheterization almost 3 years ago and at that time her coronaries were noted to be normal. Due to the global nature it is unlikely that this is due to coronary disease. * Will recommend carvedilol 3.125 mg twice a day and titrate upwards as appropriate * Start sacubitril * Start Lasix 40 mg a day * May also add spironolactone as well as an SGLT2 inhibitor. * * Thank you for allowing me to participate in the care of your patient. Please don't hesitate to call if any issues arise. HPI Consult Data Date of Consult: 04/17/24 HPI Narrative HPI Narrative: SHIRA CHEW, is a 79 F who presents with generalized fatigue as well as dyspnea on exertion which has been going on for the last 2 to 3 weeks. She said that she had some nausea diarrhea abdominal bloating for which she was given some medication. She denies any history of hypertension hyperlipidemia but she did undergo a cardiac catheterization 3 years ago which demonstrated normal coronary arteries with preserved ejection fraction. She has not had a cough but has had mild pedal edema. She presented to the emergency room was noted to be in sinus tachycardia and cardiology was called for evaluation. She was noted to have an elevated natruretic peptide level as well. [facility] Medical History Polymyalgia rheumatica Dyspnea on exertion Rheumatoid arthritis Gout Hypothyroidism Essential hypertension Type 2 diabetes mellitus Home Medications ?Medication ?Instructions ?Recorded ?Last Taken ?Type gabapentin 100 mg capsule 100 mg PO BID 04/30/15 Unknown History triamterene 37.5 1 cap PO DAILY 04/30/15 Unknown History mg-hydrochlorothiazide 25 mg capsule allopurinol 100 mg tablet 200 mg PO DAILY 10/18/20 Unknown History levothyroxine 100 mcg tablet 100 mcg PO DAILY 10/18/20 11/15/20 History acetaminophen 500 mg tablet 500 mg PO Q6H PRN Pain 10/20/20 Unknown History albuterol sulfate 90 mcg/actuation 1 puff inhalation PRN shortness of 04/16/24 Unknown History aerosol inhaler breath or wheezing calcium 600 mg (as carbonate)-vit 1 tab PO DAILY 04/16/24 Unknown History D3 20 mcg (800 unit) chewable tablet (Caltrate plus D) hydroxychloroquine 200 mg tablet 200 mg PO BID 04/16/24 Unknown History (Plaquenil) mometasone-formoterol HFA 100 2 puff inhalation BID 04/16/24 Unknown History mcg-5 mcg/actuation aerosol inhaler (Dulera) ondansetron 4 mg disintegrating 4 - 8 mg PO Q6H PRN PRN nausea 04/16/24 Unknown History tablet Allergy/AdvReac Type Severity Reaction Status Date / Time amoxicillin AdvReac GI upset, Verified 04/16/24 17:51 Nausea and vomiting Family History Mother History of DVT (deep vein thrombosis) Hypertension Father Cancer Lung Sister CAD (coronary artery disease) History of coronary artery bypass surgery Surgical History History of left heart catheterization (LHC) (~11/15/20) H/O right knee surgery History of carpal tunnel surgery History of hysterectomy History of appendectomy Social History Smoking Status: Never smoker alcohol intake: current details: occasional substance use type: does not use caffeine: Yes Type: coffee Number of servings: 3 and tea ROS Constitutional Constitutional: Denies fever(s) or weight loss Eyes Eyes: Reports systems reviewed and no addt'l complaints, except as documented ENT HEENT: Reports systems reviewed and no addt'l complaints, except as documented Cardiovascular Cardiovascular: Denies chest pain at rest, chest pain with activity, dyspnea at rest, dyspnea on exertion, edema, palpitations or paroxysmal nocturnal dyspnea Respiratory/Chest Respiratory/Chest: Denies dyspnea on exertion, productive cough, shortness of breath at rest or shortness of breath with exertion Gastrointestinal Gastrointestinal: Denies change in bowel habits, nausea, vomiting or weight changes Genitourinary Genitourinary: Denies difficulty urinating Musculoskeletal Musculoskeletal: Denies joint stiffness or muscle weakness Integumentary Integumentary: Denies lesions Neurologic Neurologic: Denies dizziness or syncope Psychiatric Psychiatric: Denies anxiety Endocrine Endocrinology: Denies excessive sweating or fatigue Hematologic/Lymphatic Hematologic/Lymphatic: Denies anemia Allergic/Immunologic Allergic/Immunologic: Denies seasonal rhinorrhea Physical Exam Const alert, oriented x3 and no apparent distress General Appearance: cooperative HEENT hearing grossly normal bilaterally Head and Scalp: atraumatic Eyes EOMs intact bilaterally Neck General: normal visual inspection Chest inspection of chest normal and palpation of chest normal Resp normal respiratory effort Auscultation: clear to auscultation bilaterally Cardio regular rate, regular rhythm, S1 normal heart sound and S2 normal heart sound Jugular Venous Distention: JVD Palpation: palpable S3 GI normal to inspection, nondistended, normoactive bowel sounds Extremity normal capillary refill and no pedal edema Peripheral Pulses: Yes pulses 2+ throughout and femoral pulses present Skin no rashes or lesions noted Neuro oriented x3 and CN's II-XII intact bilaterally Psych Appearance: grossly normal and appropriate Risk Stratification Risk Stratification Applicable: No Objective Data Vital Signs: Vital Signs Temp Pulse Resp BP Pulse Ox O2 Del Method 97.4 F L 90 18 118/76 96 Room Air 04/17/24 12:56 04/17/24 12:58 04/17/24 12:58 04/17/24 12:56 04/17/24 12:56 04/17/24 12:56 Oxygen Delivery Method Room Air Weight: 174 lb 13.225 oz Body Mass Index (BMI) 30.9 Intake & Output: Intake and Output for Last 24 Hours 04/15/24 04/16/24 04/17/24 23:59 23:59 23:59 Intake Total 0 / 0 190 / 190 Output Total 0 / 0 1300 / 1300 Balance 0 / 0 -1110 / -1110 Lab / Micro Data 04/17/24 07:37 04/17/24 07:37 Labs: Laboratory Results - last 24 hr 04/16/24 19:10: WBC 8.9, RBC 4.64, Hgb 13.5, Hct 42.5, MCV 91.6, MCH 29.1, MCHC 31.8 L, RDW Std Deviation 50.1 H, RDW Coeff of Jonnathan 14.9 H, Plt Count 206, MPV 12.3 H, Immature Gran % (Auto) 0.700, Neut % (Auto) 81.0 H, Lymph % (Auto) 9.8 L , [place] % (Auto) 6.7, Eos % (Auto) 1.2, Baso % (Auto) 0.6, Absolute Neuts (auto) 7.2, Absolute Lymphs (auto) 0.87, Nucleated RBC % 0, Sodium 138, Potassium 3.9, Chloride 100, Carbon Dioxide 28.0, Anion Gap 10, BUN 15, Creatinine 1.01, Estim Creat Clear Calc 46.77, Est GFR (MDRD) Af Amer 68, Est GFR (MDRD) Non-Af 56 L, BUN/Creatinine Ratio 14.9, Glucose 142 H, Calcium 9.1, Total Bilirubin 1.10 H, AST 33, ALT 40, Alkaline Phosphatase 57, Troponin I High Sens 43, B-Natriuretic Peptide 899.8 H, Total Protein 6.9, Albumin 3.6, Globulin 3.3, Albumin/Globulin Ratio 1.1 04/16/24 21:16: Troponin I High Sens 43 04/17/24 00:50: Troponin I High Sens 46 04/17/24 07:37: WBC 7.3, RBC 4.45, Hgb 13.0, Hct 40.2, MCV 90.3, MCH 29.2, MCHC 32.3, RDW Std Deviation 49.0 H, RDW Coeff of Jonnathan 14.9 H, Plt Count 200, MPV 12.0, Immature Gran % (Auto) 0.600, Neut % (Auto) 68.0, Lymph % (Auto) 19.2, Chaffee % (Auto) 9.8, Eos % (Auto) 1.7, Baso % (Auto) 0.7, Absolute Neuts (auto) 4.9, Absolute Lymphs (auto) 1.39, Nucleated RBC % 0, Sodium 139, Potassium 3.5, Chloride 102, Carbon Dioxide 32.0, Anion Gap 5, BUN 13, Creatinine 0.94, Estim Creat Clear Calc 47.59, Est GFR (MDRD) Af Amer 74, Est GFR (MDRD) Non-Af 61, BUN/Creatinine Ratio 13.8, Glucose 109 H, Calcium 8.7, Phosphorus 3.7, Magnesium 2.0, Total Bilirubin 1.50 H, AST 20, ALT 35, Alkaline Phosphatase 55, B- Natriuretic Peptide 1830.5 H, Total Protein 6.4, Albumin 3.3, Globulin 3.1, Albumin/Globulin Ratio 1.1, Triglycerides 104, Cholesterol 133, LDL Cholesterol 56, VLDL Cholesterol 21, HDL Cholesterol 56, TSH 9.510 H, Thyroxine (T4) 8.5, F ree T3 pg/dL 1.9 L Rhythm Strip Rhythm Strip: Sinus Tach Rate: 115 Ectopy: None Cardiology Labs/Tests 04/16/24 19:10: WBC 8.9, RBC 4.64, Hgb 13.5, Hct 42.5, MCV 91.6, MCH 29.1, MCHC 31.8 L, Plt Count 206, MPV 12.3 H, Immature Gran % (Auto) 0.700, Neut % (Auto) 81.0 H, Lymph % (Auto) 9.8 L, [place] % (Auto) 6.7, Eos % (Auto) 1.2, Baso % (Auto) 0.6, Absolute Neuts (auto) 7.2, Nucleated RBC % 0, Sodium 138, Potassium 3.9, Chloride 100, Carbon Dioxide 28.0, Anion Gap 10, BUN 15, Creatinine 1.01, Est GFR (MDRD) Af Amer 68, Est GFR (MDRD) Non-Af 56 L, BUN/Creatinine Ratio 14.9, G lucose 142 H, Calcium 9.1, Total Bilirubin 1.10 H, B-Natriuretic Peptide 899.8 H 04/17/24 07:37: WBC 7.3, RBC 4.45, Hgb 13.0, Hct 40.2, MCV 90.3, MCH 29.2, MCHC 32.3, Plt Count 200, MPV 12.0, Immature Gran % (Auto) 0.600, Neut % (Auto) 68.0, Lymph % (Auto) 19.2, [place] % (Auto) 9.8, Eos % (Auto) 1.7, Baso % (Auto) 0.7, Absolute Neuts (auto) 4.9, Nucleated RBC % 0, Sodium 139, Potassium 3.5, Chloride 102, Carbon Dioxide 32.0, Anion Gap 5, BUN 13, Creatinine 0.94, Est GFR (MDRD) Af Amer 74, Est GFR (MDRD) Non-Af 61, BUN/Creatinine Ratio 13.8, Glucose 109 H, Calcium 8.7, Phosphorus 3.7, Magnesium 2.0, Total Bilirubin 1.50 H, B- Natriuretic Peptide 1830.5 H, Triglycerides 104, Cholesterol 133, LDL Cholesterol 56, VLDL Cholesterol 21, HDL Cholesterol 56 Rhythm: EKG: ECHO: Stress Test: Cardiac Cath: PCI: CT Surgery: Holter monitor: EPS: PPM: CXR: Chest CT Scan: Radiography Diagnostic Testing: Radiology Impression Chest X-Ray 04/16/24 19:20 IMPRESSION: Slight increase in interstitial markings represent edema and/or infection. Chronic interstitial lung changes. Electronically Signed: Ej Araujo MD at 20:25 EST , Echocardiogram 04/16/24 23:13 Interpretation Summary The left ventricular ejection fraction is 10 %. Moderately dilated left ventricle. Mild (1+) eccentric mitral valve insufficiency. Stage 2 diastolic dysfunction. Ordering Physician: Christian White Referring Physician: Reynaldo Hernandez Performed By: Monica Lozano RCS
--- NOTE | 2024-04-17 15:46 | PN.HOSP_ITS ---
Reason for Visit Reason for Visit: Diagnoses Hypothyroidism, unspecified (04/16/24) Type 2 diabetes mellitus without complications (04/16/24) Obesity, class 1 (04/16/24) Essential (primary) hypertension (04/16/24) Heart failure, unspecified (04/16/24) Other abnormalities of breathing (04/16/24) Abnormal result of other cardiovascular function study (04/16/24) Subjective Subjective Patient was seen and examined today, I talked extensively with cardiology and the patient and her family (sons) who are in the room today during the time my examination. Patient is echocardiogram today showed global hypokinesia with a severely reduced ejection fraction of 10%. Patient cannot give any details of her recent illness to this examiner. Patient had pulmonary function test done in July of this year which showed a large airways obstruction which was not responsive to bronchodilators. Patient states that she had been taken off her inhaler by her PCP. She is due to see a children's aide next week. Objective Data Objective Data Vital Signs: Vital Signs Temp Pulse Resp BP Pulse Ox O2 Del Method 97.4 F L 90 18 118/76 96 Room Air 04/17/24 12:56 04/17/24 12:58 04/17/24 12:58 04/17/24 12:56 04/17/24 12:56 04/17/24 14:00 Oxygen Delivery Method Room Air Weight: 79.3 kg Body Mass Index (BMI) 30.9 Intake & Output: Intake and Output for Last 24 Hours 04/15/24 04/16/24 04/17/24 23:59 23:59 23:59 Intake Total 0 / 0 590 / 590 Output Total 0 / 0 1300 / 1300 Balance 0 / 0 -710 / -710 Lab / Micro Data 04/17/24 07:37 04/17/24 07:37 Labs: Laboratory Results - last 24 hr 04/16/24 19:10: WBC 8.9, RBC 4.64, Hgb 13.5, Hct 42.5, MCV 91.6, MCH 29.1, MCHC 31.8 L, RDW Std Deviation 50.1 H, RDW Coeff of Jonnathan 14.9 H, Plt Count 206, MPV 12.3 H, Immature Gran % (Auto) 0.700, Neut % (Auto) 81.0 H, Lymph % (Auto) 9.8 L , Stephenson % (Auto) 6.7, Eos % (Auto) 1.2, Baso % (Auto) 0.6, Absolute Neuts (auto) 7.2, Absolute Lymphs (auto) 0.87, Nucleated RBC % 0, Sodium 138, Potassium 3.9, Chloride 100, Carbon Dioxide 28.0, Anion Gap 10, BUN 15, Creatinine 1.01, Estim Creat Clear Calc 46.77, Est GFR (MDRD) Af Amer 68, Est GFR (MDRD) Non-Af 56 L, BUN/Creatinine Ratio 14.9, Glucose 142 H, Calcium 9.1, Total Bilirubin 1.10 H, AST 33, ALT 40, Alkaline Phosphatase 57, Troponin I High Sens 43, B-Natriuretic Peptide 899.8 H, Total Protein 6.9, Albumin 3.6, Globulin 3.3, Albumin/Globulin Ratio 1.1 04/16/24 21:16: Troponin I High Sens 43 04/17/24 00:50: Troponin I High Sens 46 04/17/24 07:37: WBC 7.3, RBC 4.45, Hgb 13.0, Hct 40.2, MCV 90.3, MCH 29.2, MCHC 32.3, RDW Std Deviation 49.0 H, RDW Coeff of Jonnathan 14.9 H, Plt Count 200, MPV 12.0, Immature Gran % (Auto) 0.600, Neut % (Auto) 68.0, Lymph % (Auto) 19.2, Stephenson % (Auto) 9.8, Eos % (Auto) 1.7, Baso % (Auto) 0.7, Absolute Neuts (auto) 4.9, Absolute Lymphs (auto) 1.39, Nucleated RBC % 0, Sodium 139, Potassium 3.5, Chloride 102, Carbon Dioxide 32.0, Anion Gap 5, BUN 13, Creatinine 0.94, Estim Creat Clear Calc 47.59, Est GFR (MDRD) Af Amer 74, Est GFR (MDRD) Non-Af 61, BUN/Creatinine Ratio 13.8, Glucose 109 H, Calcium 8.7, Phosphorus 3.7, Magnesium 2.0, Total Bilirubin 1.50 H, AST 20, ALT 35, Alkaline Phosphatase 55, B- Natriuretic Peptide 1830.5 H, Total Protein 6.4, Albumin 3.3, Globulin 3.1, Albumin/Globulin Ratio 1.1, Triglycerides 104, Cholesterol 133, LDL Cholesterol 56, VLDL Cholesterol 21, HDL Cholesterol 56, TSH 9.510 H, Thyroxine (T4) 8.5, F ree T3 pg/dL 1.9 L Radiography Diagnostic Testing: Radiology Impression Chest X-Ray 04/16/24 19:20 IMPRESSION: Slight increase in interstitial markings represent edema and/or infection. Chronic interstitial lung changes. Electronically Signed: Ej Araujo MD at 20:25 EST , Echocardiogram 04/16/24 23:13 Interpretation Summary The left ventricular ejection fraction is 10 %. Moderately dilated left ventricle. Mild (1+) eccentric mitral valve insufficiency. Stage 2 diastolic dysfunction. Ordering Physician: Christian White Referring Physician: Reynaldo Hernandez Performed By: Monica Lozano RCS Rhythm Strip Rhythm Strip: Sinus Tach Rate: 115 Ectopy: None Physical Exam Const alert, oriented x3 and no apparent distress General Appearance: cooperative, well kempt and well developed Orientation / Consciousness: awake, oriented to person, oriented to place and oriented to time HEENT normocephalic, head/scalp atraumatic and moist oral mucous membranes Eyes PERRL, EOMs intact bilaterally and conjunctivae normal Neck supple, no JVD, thyroid normal and no carotid bruits General: trachea midline Resp normal respiratory effort, no retractions and no use of accessory muscles Auscultation: rales bilateral base; Negative for rhonchi or wheezes Cardio regular rate, regular rhythm, S1 normal heart sound, S2 normal heart sound, no murmurs, no rub and no gallops GI normal to inspection, nondistended, normoactive bowel sounds, soft to palpation, non-tender and non-distended Extremity no clubbing, cyanosis or edema Skin no rashes or lesions noted General Skin Exam: no breakdown Neuro oriented x3, CN's II-XII intact bilaterally, moves all extremities, no focal motor deficits and no sensory deficits noted Sensorium / Orientation: awake and alert Speech: speech normal Psych affect normal Assessment & Plan Assessment/Plan (1) CHF (congestive heart failure), NYHA class III: PLAN: Plan 1. Acute systolic congestive heart failure-patient was started on Entresto, carvedilol, and kept on oral Lasix, she will be reevaluated tomorrow, patient is not on any oxygen currently. #2 cardiomyopathy-etiology unclear, favor viral etiology-patient will need follow-up with cardiology, I talked with her PCP by phone today to let her know the patient's diagnosis and treatment plan. #3 hypothyroidism-patient's T4 is normal but her T3 is low. This could be secondary to chronic disease or could be hypothyroidism. I have elected to increase her Synthroid to 125 mcg daily. #4 chronic obstructive pulmonary disease-patient will resume her inhaler when she is discharged from the hospital #5 essential hypertension-patient's blood pressure medicines will need to be adjusted due to her congestive heart failure Total clinical time spent by myself addressing the patient's medical issues, reviewing all of her data, and collaborating with patient's care team: 50 minutes Charges/Coding Visit Charges Inpatient E&M: 76513 Subs Hosp L3
--- NOTE | 2024-04-17 15:55 | CASEMGMT ---
NITA TOM NOTE: Per Dr Toney, he anticipates pt to discharge home on Entresto, which he states he called Rx to [facility] in [place]. Per Dr Chávez, he spoke w/the pharmacy, no prior auth is needed, and cost will be $42. Pt and family made aware and agreeable to paying this. They are aware to not pick this up from the pharmacy until pt discharges, as Dr Chávez wishes to make sure she tolerates it before discharging her home on it. They voice understanding. [place] NITA CM
[2024-04-17] MEDS: Furosemide 40 MG Tablet PO (17:06)
[2024-04-17] MEDS: 0.9% Saline Lock 10 ML Syringe IV (21:55)
[2024-04-18 03:35] VITALS: BP 92/53; PULSE 84; RESP 18; TEMP 36.6; O2SAT 94
[2024-04-18 05:21] VITALS: BMI 30.9
[2024-04-18 05:50] VITALS: BP 92/60; PULSE 85; RESP 18; TEMP 36.5; O2SAT 94
[2024-04-18] MEDS: Levothyroxine 125 MCG Tablet PO (05:55)
[2024-04-18 06:40] LABS: Magnesium 2.2 mg/dL (1.6-2.6); Phosphorus 4.3 mg/dL (2.5-4.9)
[2024-04-18 07:37] VITALS: PULSE 85; RESP 20; O2SAT 96
[2024-04-18] MEDS: Budesonide Respules 0.5 MG/2 ML AMPUL.NEB. INHALATION (07:37)
[2024-04-18 09:05] VITALS: BP 97/68; PULSE 92; RESP 18; TEMP 36.9; O2SAT 95
[2024-04-18] MEDS: Magnesium Chloride 64 MG Delay Rel.Tablet 128 MG PO (09:13)
[2024-04-18] MEDS: Allopurinol 100 MG Tablet 200 MG PO (09:13)
[2024-04-18] MEDS: Calcium Carb/Vitamin D 1 TABLET Tablet PO (09:13)
[2024-04-18] MEDS: Gabapentin 100 MG Capsule PO (09:13)
[2024-04-18] MEDS: Potassium Chloride Oral Tablet 20 MEQ PO (09:13)
[2024-04-18] MEDS: Carvedilol 3.125 MG TABLET PO (09:13)
[2024-04-18] MEDS: SACUBITRIL/VALSARTAN 24/26 MG TABLET 1 EACH PO (09:13)
[2024-04-18] MEDS: Hydroxychloroquine 200 MG Tablet PO (09:13)
[2024-04-18] MEDS: Enoxaparin 40 MG/0.4 ML Syringe SC (09:14)
--- NOTE | 2024-04-18 09:17 | PN.CARD_ITS ---
Subjective Subjective Patient seen and evaluated. Appears to be doing better this morning. Objective Data Vital Signs: Vital Signs Temp Pulse Resp BP Pulse Ox O2 Del Method 98.4 F 92 18 97/68 95 Room Air 04/18/24 09:05 04/18/24 09:05 04/18/24 09:05 04/18/24 09:05 04/18/24 09:05 04/18/24 09:05 Oxygen Delivery Method Room Air Weight: 174 lb 13.225 oz Body Mass Index (BMI) 30.9 Intake & Output: Intake and Output for Last 24 Hours 04/16/24 04/17/24 04/18/24 23:59 23:59 23:59 Intake Total 0 / 0 1150 / 1150 240 / 240 Output Total 0 / 0 3575 / 3575 250 / 250 Balance 0 / 0 -2425 / -2425 -10 / -10 Lab / Micro Data 04/17/24 07:37 04/17/24 07:37 Labs: Laboratory Results - last 24 hr 04/17/24 07:37: Sodium 139, Potassium 3.5, Chloride 102, Carbon Dioxide 32.0, Anion Gap 5, BUN 13, Creatinine 0.94, Estim Creat Clear Calc 47.59, Est GFR (MDRD) Af Amer 74, Est GFR (MDRD) Non-Af 61, BUN/Creatinine Ratio 13.8, Glucose 109 H, Calcium 8.7, Phosphorus 3.7, Magnesium 2.0, Total Bilirubin 1.50 H, AST 20, ALT 35, Alkaline Phosphatase 55, Total Protein 6.4, Albumin 3.3, Globulin 3.1, Albumin/Globulin Ratio 1.1, Triglycerides 104, Cholesterol 133, LDL Cholesterol 56, VLDL Cholesterol 21, HDL Cholesterol 56, TSH 9.510 H, Thyroxine (T4) 8.5, Free T3 pg/dL 1.9 L 04/18/24 04:41: Phosphorus 4.3, Magnesium 2.2 Rhythm Strip Rhythm Strip: Sinus Tach Rate: 115 Ectopy: None Cardiology Labs/Tests 04/17/24 07:37: Sodium 139, Potassium 3.5, Chloride 102, Carbon Dioxide 32.0, Anion Gap 5, BUN 13, Creatinine 0.94, Est GFR (MDRD) Af Amer 74, Est GFR (MDRD) Non-Af 61, BUN/Creatinine Ratio 13.8, Glucose 109 H, Calcium 8.7, Phosphorus 3.7, Magnesium 2.0, Total Bilirubin 1.50 H, Triglycerides 104, Cholesterol 133, LDL Cholesterol 56, VLDL Cholesterol 21, HDL Cholesterol 56 04/18/24 04:41: Phosphorus 4.3, Magnesium 2.2 Rhythm: EKG: ECHO: Stress Test: Cardiac Cath: PCI: CT Surgery: Holter monitor: EPS: PPM: CXR: Chest CT Scan: Radiography Diagnostic Testing: Radiology Impression Echocardiogram 04/16/24 23:13 Interpretation Summary The left ventricular ejection fraction is 10 %. Moderately dilated left ventricle. Mild (1+) eccentric mitral valve insufficiency. Stage 2 diastolic dysfunction. Ordering Physician: Christian White Referring Physician: Reynaldo Hernandez Performed By: Monica Lozano RCS Physical Exam Const alert, oriented x3 and no apparent distress General Appearance: cooperative, well kempt and well developed Orientation / Consciousness: awake, oriented to person, oriented to place and oriented to time HEENT normocephalic, head/scalp atraumatic and moist oral mucous membranes Eyes PERRL, EOMs intact bilaterally and conjunctivae normal Neck supple, no JVD, thyroid normal and no carotid bruits General: trachea midline Resp normal respiratory effort, no retractions and no use of accessory muscles Auscultation: rales bilateral base; Negative for rhonchi or wheezes Cardio regular rate, regular rhythm, S1 normal heart sound, S2 normal heart sound, no murmurs, no rub and no gallops GI normal to inspection, nondistended, normoactive bowel sounds, soft to palpation, non-tender and non-distended Extremity no clubbing, cyanosis or edema Skin no rashes or lesions noted General Skin Exam: no breakdown Neuro oriented x3, CN's II-XII intact bilaterally, moves all extremities, no focal motor deficits and no sensory deficits noted Sensorium / Orientation: awake and alert Speech: speech normal Psych affect normal Assessment & Plan Assessment/Plan (1) CHF (congestive heart failure), NYHA class III: PLAN: She does present with shortness of breath and likely has congestive heart failure. The etiology is unclear at this time she is hypothyroid but she is tachycardic. An echocardiogram performed demonstrated an ejection fraction of 10%. 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 She did undergo a cardiac catheterization almost 3 years ago and at that time her coronaries were noted to be normal. Due to the global nature it is unlikely that this is due to coronary disease. * Will recommend carvedilol 3.125 mg twice a day and titrate upwards as appropriate * Start sacubitril if the patient can tolerate otherwise will be added in the outpatient setting * Start Lasix 40 mg a day * May also add spironolactone as well as an SGLT2 inhibitor. * * Thank you for allowing me to participate in the care of your patient. Please don't hesitate to call if any issues arise. She appears to be stable for discharge
[2024-04-18 10:20] VITALS: BP 85/57; PULSE 92; RESP 18; TEMP 36.9; O2SAT 96
--- NOTE | 2024-04-18 10:52 | DCINST_ITS ---
Discharge Instructions Diet Discharge Diet: No restrictions DC O2, CPAP, BIPAP needs Home O2 Discharge instructions: No Dressing / Incision Discharge Activity: Return to Normal Activity Weight Bearing Status: Full weight bearing Follow Up Care Test Results: Test results from this visit will be discussed in further detail at your follow- up appointment, if applicable. Discharge Plan Admission Admit Date/Time: 04/16/24 23:04 Primary Reason for Your Visit: Congestive heart failure Attending Provider: Saulo Chávez Primary Care Provider: Mariposa Parker Consulting Providers: Wilian Yang; Christian White Instructions Additional Instructions / Restrictions: Start furosemide on 04/19/2024 Discharge Orders/Prescriptions Prescriptions: New furosemide 40 mg Tablet 40 mg PO DAILY Qty: 30 0RF carvedilol 3.125 mg Tablet 3.125 mg PO BID Qty: 60 0RF potassium chloride 20 mEq Tablet,Er Particles/Crystals 20 meq PO DAILY Qty: 30 0RF levothyroxine 125 mcg Tablet 125 mcg PO DAILY@0600 Qty: 30 0RF Continued acetaminophen 500 mg tablet 500 mg PO Q6H PRN (Reason: Pain) gabapentin 100 MG capsule 100 mg PO BID Patient Comments: Caltrate 600 plus D 600 mg-20 mcg (800 unit) tablet,chewable 1 tab PO DAILY albuterol sulfate 90 mcg/actuation HFA aerosol inhaler 1 puff inhalation PRN (Reason: shortness of breath or wheezing) hydroxychloroquine [Plaquenil] 200 mg tablet 200 mg PO BID ondansetron 4 mg tablet,disintegrating 4 - 8 mg PO Q6H PRN PRN (Reason: nausea) Dulera 100-5 mcg/actuation HFA aerosol inhaler 2 puff inhalation BID allopurinol 100 mg tablet 200 mg PO DAILY levothyroxine 100 mcg tablet 100 mcg PO DAILY Discontinued triamterene-hydrochlorothiazid 1 CAP capsule 1 cap PO DAILY Referrals / Follow Up: Wilian Yang MD [Med Staff - Active Staff] - See Referral Note (Call to make an appointment for 2 weeks from now) Mariposa Parker DO [Primary Care Provider] - In 1 Week Disposition Disposition (needs filled in before D/C Order can be placed): Home, Self Care
--- NOTE | 2024-04-18 11:13 | PCM.DC.SUM ---
Providers Date of Admission: 04/16/24 Date of Discharge: 04/18/24 Primary Care Physician: Dr. Mariposa Parker, Consultations 04/16/24 23:34 Consult: Cardiology Routine Consulting Provider: Wilian Yang Reason for Consult: AE CHF; apparently new-onset. EMERGENT Consult: No MD Notified: Yes Date Notified: 04/16/24 Time Notified: 23:10 Method of Notification: ED Physician Initiated Reason For Visit: AE CHF; APPARENTLY NEW-ONSET Diagnosis Discharge Diagnosis (1) CHF (congestive heart failure), NYHA class III: Status: Acute Code(s): I50.9 - Heart failure, unspecified Plan 1. Acute systolic congestive heart failure-patient was started on Entresto, carvedilol, and kept on oral Lasix, she will be reevaluated tomorrow, patient is not on any oxygen currently. #2 cardiomyopathy-etiology unclear, favor viral etiology-patient will need follow-up with cardiology, I talked with her PCP by phone today to let her know the patient's diagnosis and treatment plan. #3 hypothyroidism-patient's T4 is normal but her T3 is low. This could be secondary to chronic disease or could be hypothyroidism. I have elected to increase her Synthroid to 125 mcg daily. #4 chronic obstructive pulmonary disease-patient will resume her inhaler when she is discharged from the hospital #5 essential hypertension-patient's blood pressure medicines will need to be adjusted due to her congestive heart failure Total clinical time spent by myself addressing the patient's medical issues, reviewing all of her data, and collaborating with patient's care team: 50 minutes Medications at Discharge Home Medications gabapentin 100 mg capsule 100 mg PO BID nerve pain 04/30/15 allopurinol 100 mg tablet 200 mg PO DAILY gout 10/18/20 levothyroxine 100 mcg tablet 100 mcg PO DAILY thyroid 10/18/20 acetaminophen 500 mg tablet 500 mg PO Q6H PRN Pain 10/20/20 albuterol sulfate 90 mcg/actuation aerosol inhaler 1 puff inhalation PRN shortness of breath or wheezing 04/16/24 calcium 600 mg (as carbonate)-vit D3 20 mcg (800 unit) chewable tablet (Caltrate plus D) 1 tab PO DAILY supplement 04/16/24 hydroxychloroquine 200 mg tablet (Plaquenil) 200 mg PO BID 04/16/24 mometasone-formoterol HFA 100 mcg-5 mcg/actuation aerosol inhaler (Dulera) 2 puff inhalation BID breathing 04/16/24 ondansetron 4 mg disintegrating tablet 4 - 8 mg PO Q6H PRN PRN nausea 04/16/24 carvedilol 3.125 mg tablet 3.125 mg PO BID #60 tabs 04/18/24 furosemide 40 mg tablet 40 mg PO DAILY #30 tabs 04/18/24 levothyroxine 125 mcg tablet 125 mcg PO DAILY@0600 #30 tabs 04/18/24 potassium chloride 20 mEq tablet,extended release(part/cryst) 20 meq PO DAILY #30 tabs 04/18/24 Hospital Course Operations None Procedures 2-D Echocardiogram Summary of Care Provided Minutes Spent on Discharge: 32 Hospital Course: This 79-year-old white female was seen in the emergency room at [facility] with complaints of lower extremity edema. Patient also complained of dyspnea with exertion which had worsened over the past several months. Patient was referred to pulmonary medicine as an outpatient for consultation due to abnormal pulmonary function tests in the past. Workup in the emergency room showed a normal white blood cell count, hemoglobin was 13.5, chemistry profile was remarkable for glucose of 142, patient's beta natruretic peptide was elevated at 899. Troponin was unremarkable. Chest x-ray showed increased interstitial markings which could represent edema and/or infection, there was also chronic interstitial lung changes. EKG showed a sinus tachycardia and a left anterior fascicular block. Patient did not require supplemental oxygen. Patient was admitted to PCU for acute congestive heart failure, she was treated with IV furosemide and she was seen in consultation by cardiology and underwent an echocardiogram which showed a severely decreased ejection fraction of 10%. There was noted to be global hypokinesia. Cardiology recommended medications, patient did not tolerate Entresto due to hypotension however. On 04/18/2024, patient was seen and examined: On examination she appeared in good health and spirits, she does not appear to be in any distress. Vital signs as documented. Skin warm and dry and without overt rashes. Neck without JVD, thyroid appears normal, trachea is midline, neck is supple. Lungs clear, normal air movement was noted. Heart exam notable for regular rhythm, normal sounds and absence of murmurs, rubs or gallops. Abdomen unremarkable and without evidence of organomegaly, masses, or abdominal aortic enlargement, bowel sounds are present in all 4 quadrants, no abdominal tenderness was noted. Extremities nonedematous, no cyanosis was noted, no clubbing was noted. Neuro: Cranial nerves II through XII are grossly intact, no focal motor deficits were noted, sensation to light touch and pinprick is intact, motor exam 5/5 throughout. Psych: Patient is alert and oriented x3, she does not appear anxious or depressed, she does not appear agitated. Patient appears stable for discharge on 04/18/2024. Weight / BMI Weight Weight: 79.3 kg Body Mass Index (BMI) 30.9 ABG / Lab / Microbiology Data 04/17/24 07:37 04/17/24 07:37 Laboratory: Laboratory Results - last 24 hr 04/18/24 04:41: Phosphorus 4.3, Magnesium 2.2 Radiography Diagnostic Testing: Radiology Impression Echocardiogram 04/16/24 23:13 Interpretation Summary The left ventricular ejection fraction is 10 %. Moderately dilated left ventricle. Mild (1+) eccentric mitral valve insufficiency. Stage 2 diastolic dysfunction. Ordering Physician: Chirstian White Referring Physician: Reynaldo Hernandez Performed By: Monica Lozano RCS D/C Instructions Discharge Diet: No restrictions Weight Bearing Status: Full weight bearing DC O2, CPAP, BIPAP Needs Home O2 Discharge instructions: No Meaningful Use Info Meaningful Use Meaningful Use Diagnoses (Choose all that apply): CHF CHF LOVELY/ARB ordered at discharge?: No Reason LOVELY/ARB not ordered?: Hypotension Documented LVEF (%): 10 Ischemic Stroke Statin Dosing Therapy Reference: STATIN DOSE THERAPY REFERENCE: * Patients > 75 years receive moderate or high dose statin therapy. * Patients 75 years or YOUNGER should receive HIGH intensity statin dose unless contraindicated. You will be required to document reason for non-treatment if statin daily dose does not meet guidelines. HIGH DOSE STATIN THERAPY DAILY Atorvastatin > than or = to 40 mg Rosuvastatin > than or = to 20 mg Amlodipine + Atorvastatin > than or = to 2.5/40 mg Ezetimibe + Simvastatin 10/80 mg Simvastatin 80mg Discharge Plan Admission Admit Date/Time: 04/16/24 23:04 Primary Reason for Your Visit: Congestive heart failure Attending Provider: Saulo Chávez Primary Care Provider: Mariposa Parker Consulting Providers: Wilian Yang; Christian White Instructions Additional Instructions / Restrictions: Start furosemide on 04/19/2024 Discharge Orders/Prescriptions Prescriptions: New furosemide 40 mg Tablet 40 mg PO DAILY Qty: 30 0RF carvedilol 3.125 mg Tablet 3.125 mg PO BID Qty: 60 0RF potassium chloride 20 mEq Tablet,Er Particles/Crystals 20 meq PO DAILY Qty: 30 0RF levothyroxine 125 mcg Tablet 125 mcg PO DAILY@0600 Qty: 30 0RF Continued acetaminophen 500 mg tablet 500 mg PO Q6H PRN (Reason: Pain) gabapentin 100 MG capsule 100 mg PO BID Patient Comments: Caltrate 600 plus D 600 mg-20 mcg (800 unit) tablet,chewable 1 tab PO DAILY albuterol sulfate 90 mcg/actuation HFA aerosol inhaler 1 puff inhalation PRN (Reason: shortness of breath or wheezing) hydroxychloroquine [Plaquenil] 200 mg tablet 200 mg PO BID ondansetron 4 mg tablet,disintegrating 4 - 8 mg PO Q6H PRN PRN (Reason: nausea) Dulera 100-5 mcg/actuation HFA aerosol inhaler 2 puff inhalation BID allopurinol 100 mg tablet 200 mg PO DAILY levothyroxine 100 mcg tablet 100 mcg PO DAILY Discontinued triamterene-hydrochlorothiazid 1 CAP capsule 1 cap PO DAILY Referrals / Follow Up: Wilian Yang MD [Med Staff - Active Staff] - See Referral Note (Call to make an appointment for 2 weeks from now) Mariposa Parker DO [Primary Care Provider] - In 1 Week Disposition Disposition (needs filled in before D/C Order can be placed): Home, Self Care Charges/Coding Visit Charges Inpatient E&M: 11770 Disch Hosp >30min
[2024-04-18 12:00] VITALS: BP 92/77; PULSE 94; RESP 17; TEMP 36.6; O2SAT 96
== END 2024-04-18 13:15 | disposition home or self-care (01) | DRG 291 ==
LOC: ED 23:20 → PCU 23:22
PROVIDERS: Admitting Provider Internal Medicine; Emergency Provider Emergency Medicine; PCP Family Medicine; Referring Provider Emergency Medicine; Visit Provider Internal Medicine
DX: I11.0 Hypertensive heart disease with heart failure (principal); I50.21 Acute systolic (congestive) heart failure; I42.9 Cardiomyopathy, unspecified; K74.60 Unspecified cirrhosis of liver; E11.9 Type 2 diabetes mellitus without complications; J44.9 Chronic obstructive pulmonary disease, unspecified; E03.9 Hypothyroidism, unspecified; Z68.32 Body mass index [BMI] 32.0-32.9, adult; I87.2 Venous insufficiency (chronic) (peripheral); I44.4 Left anterior fascicular block; Z90.710 Acquired absence of both cervix and uterus; Z79.890 Hormone replacement therapy; E66.9 Obesity, unspecified; Z79.51 Long term (current) use of inhaled steroids
CPT/HCPCS: 36415; 71046; 80053; 80061; 83735; 83880; 84100; 84436; 84443; 84481; 84484; 85025; 93005; 93306; 94640; 94668; 97802; 99252; 99285; Q9957; A4216; C8929; G0463; J1940

== ENCOUNTER → 2024-05-08 | Outpatient (CLI) | payer MEDICARE, SELFPAY ==
[2024-05-08 11:33] LABS: Anion Gap 6 (5-15); BUN 28 mg/dL (7-18); BUN/Creat Ratio 26.9 RATIO (10-20); Chloride 106 mmol/L (98-107); Creatinine, Serum 1.04 mg/dL (0.55-1.02); EST Glomerular Filtration Rate 54 mL/min (>60); Est Glom Filt Rate - Afr Amer 66 mL/min (>60); Glucose 127 mg/dL (74-106); Potassium 3.8 mmol/L (3.5-5.1); Sodium Level 138 mmol/L (136-145)
== END | disposition home or self-care (01) ==
PROVIDERS: PCP Family Medicine; Referring Provider Physician Assistant Medical; Visit Provider Physician Assistant Medical
DX: I50.9 Heart failure, unspecified (principal)
CPT/HCPCS: 36415; 80048

== ENCOUNTER → 2024-05-18 | Outpatient (CLI) | payer MEDICARE, SELFPAY ==
[2024-05-18 10:36] LABS: Absolute Lymphocyte Count 1.54 X10^3/uL (0.83-4.51); Absolute Neutrophil Count 3.2 X10^3/uL (2.0-7.7); Basophil# 0.07 X10^3/uL; Basophil% 1.3 % (0-1); Eosinophil# 0.17 X10^3/uL; Eosinophils% 3.1 % (0-5); Hematocrit 44.7 % (37-47); Hemoglobin 13.7 g/dL (12.0-15.0); Lymphocyte # 1.54 X10^3/ul (0.83-4.51); Lymphocyte % 28.1 % (19-41); Mean Corp Hgb Conc 30.6 g/dL (32-36); Mean Corpuscular Hgb 28.2 pg (27.0-32.0); Mean Platelet Vol. 12.9 fl (6.2-12.0); Monocyte% 9.1 % (0-10); NRBC Flagged by Analyzer 0 % (0-5); Neutrophil % 58.2 % (47-70); Platelet Count 176 K/mm3 (150-450); RBC Distribution Width CV 14.1 % (11.6-14.6); RBC Distribution Width SD 47.5 fl (35.1-43.9); Red Blood Count 4.86 M/mm3 (4.2-5.4); White Blood Count 5.5 K/mm3 (4.4-11.0)
[2024-05-18 11:00] LABS: AST(SGOT) 18 U/L (15-37); Alanine Aminotransfer ALT/SGPT 22 U/L (13-56); Albumin, Serum 3.7 g/dL (3.2-5.0); Alkaline Phosphatase 59 U/L (45-117); Anion Gap 4 (5-15); BUN 27 mg/dL (7-18); BUN/Creat Ratio 26.5 RATIO (10-20); Calcium,Total 9.6 mg/dL (8.5-10.1); Chloride 106 mmol/L (98-107); Creatinine, Serum 1.02 mg/dL (0.55-1.02); EST Glomerular Filtration Rate 55 mL/min (>60); Est Glom Filt Rate - Afr Amer 67 mL/min (>60); Globulin 3.6 g/dL (2.2-4.2); Glucose 134 mg/dL (74-106); Potassium 3.3 mmol/L (3.5-5.1); Protein, Total 7.3 g/dL (6.4-8.2); Sodium Level 143 mmol/L (136-145)
== END | disposition home or self-care (01) ==
LOC: MTLAB 09:52
PROVIDERS: PCP Family Medicine; Referring Provider Internal Medicine Rheumatology; Visit Provider Internal Medicine Rheumatology
DX: M06.4 Inflammatory polyarthropathy (principal); Z79.899 Other long term (current) drug therapy
CPT/HCPCS: 36415; 80053; 85025

== ENCOUNTER 2024-05-25 22:54 | Inpatient (IN) | payer MEDICARE, SELFPAY ==
[2024-05-25 22:55] VITALS: BP 107/57; PULSE 96; RESP 16; TEMP 38; O2SAT 93
[2024-05-25 22:56] VITALS: BP 107/57; PULSE 96; RESP 16; TEMP 38; O2SAT 93
[2024-05-25 23:49] VITALS: PULSE 98; RESP 22
[2024-05-25] MEDS: Albuterol 2.5 MG/3 ML VIAL.NEB. INHALATION (23:49)
[2024-05-25] MEDS: Ipratropium/Albuterol Sulfate 3 ML AMPUL.NEB INHALATION (23:49)
[2024-05-25] MEDS: 0.9% Normal Saline (500mL Bag) 500 ML 999 ML IV (23:54)
[2024-05-25] MEDS: Acetaminophen 500 MG Tablet 1000 MG PO (23:54)
[2024-05-25] MEDS: MethylPREDNISolone 125 MG/2 ML Vial IV (23:54)
[2024-05-25 23:56] VITALS: BP 103/52; PULSE 99; RESP 16; TEMP 37.6; O2SAT 95
[2024-05-26] VITALS (27 sets, daily range): BP systolic 75–130; BP diastolic 47–80; PULSE 78–112; RESP 12–97; TEMP 36.1–37.4; O2SAT 88–98; BMI 31.1
--- NOTE | 2024-05-26 00:02 | RAD_ITS ---
PROCEDURE: CHEST 1 VIEW (PORTABLE) REASON FOR EXAM: Cough. TECHNIQUE: Frontal view of the chest. COMPARISON: Chest x-ray from 04/16/2024. FINDINGS: Cardiomegaly is present. There is mild prominence of the pulmonary interstitium. No consolidation, pleural effusion, or pneumothorax is present. Degenerative changes are identified. RAD/Chest 1 View (Portable) IMPRESSION: Cardiomegaly and mild prominence of the pulmonary interstitium. No significant change. Reading Location: [facility]
[2024-05-26 00:07] LABS: Anion Gap 10 (5-15); BUN 15 mg/dL (7-18); BUN/Creat Ratio 16.7 RATIO (10-20); Calcium,Total 9.1 mg/dL (8.5-10.1); Chloride 100 mmol/L (98-107); EST Glomerular Filtration Rate 64 mL/min (>60); Est Glom Filt Rate - Afr Amer 78 mL/min (>60); Glucose 114 mg/dL (74-106); Magnesium 1.7 mg/dL (1.6-2.6); Potassium 3.2 mmol/L (3.5-5.1); Sodium Level 136 mmol/L (136-145)
--- NOTE | 2024-05-26 00:13 | CPS ---
[2349] x1 Albuterol given to pt. in ED as well
[2024-05-26 00:17] LABS: Absolute Lymphocyte Count 0.66 X10^3/uL (0.83-4.51); Absolute Neutrophil Count 6.3 X10^3/uL (2.0-7.7); Basophil# 0.06 X10^3/uL; Basophil% 0.8 % (0-1); Eosinophil# 0.01 X10^3/uL; Eosinophils% 0.1 % (0-5); Hematocrit 42.2 % (37-47); Hemoglobin 13.8 g/dL (12.0-15.0); Lymphocyte # 0.66 X10^3/ul (0.83-4.51); Lymphocyte % 8.5 % (19-41); Mean Corp Hgb Conc 32.7 g/dL (32-36); Mean Corpuscular Hgb 29.2 pg (27.0-32.0); Mean Corpuscular Volume 89.4 fL (81-99); Mean Platelet Vol. 13.4 fl (6.2-12.0); Monocyte# 0.56 X10^3/uL; Monocyte% 7.2 % (0-10); NRBC Flagged by Analyzer 0 % (0-5); Neutrophil # 6.26 X10^3/uL (2.7-7.7); Neutrophil % 80.8 % (47-70); Platelet Count 131 K/mm3 (150-450); RBC Distribution Width CV 14.2 % (11.6-14.6); Red Blood Count 4.72 M/mm3 (4.2-5.4); White Blood Count 7.8 K/mm3 (4.4-11.0)
--- NOTE | 2024-05-26 01:57 | PCM.HP.STD ---
HPI - General General Date of Admission: 05/26/24 Date of Service: 05/26/24 Chief Complaint: Dyspnea, cough. HPI Narrative The patient is an 79-year-old female with past medical history hypothyroidism, hypertension, gout, PMR, diabetes mellitus type 2, gout, rheumatoid arthritis, obesity, HFrEF, COPD who presents to the [facility] ED on 06/16 with history of increasing fatigue, malaise, cough, congestion, headache, body aches as well as dyspnea with fever 102 with ongoing symptoms worsening since the day prior prompting eventual ED evaluation to be cautious. In the ED patient ambulatory attempts with desaturation down to 87%. Workup in the ED included T1 100.4, heart rate 96, BP 107/57, respiratory rate 16, 93% on room air however desaturating down to 87% with ambulation and 88% at rest, most recent repeat vitals T99.1, heart rate 91, BP 92/58, respiratory rate 31, 94% on 2 L nasal cannula, CBC with WBC 7.8, human 13.8, platelets 131 with increased immature granulocyte, BMP with potassium 3.2, glucose 114, magnesium 1.7, BNP pending upon request evaluation of patient, chest x-ray with cardiomegaly and mild prominence of the pulmonary interstitium not significantly changed from most recent, rapid SARS COVID/influenza/RSV with positive influenza A. In the ED patient ministered 1 L normal saline, Tylenol 1000 mg p.o. x 1, albuterol and DuoNeb therapy as well as Solu-Medrol 100 mg IV x 1 in addition to Tamiflu 75 mg p.o. x 1. [facility] Medical History Cardiomyopathy Obesity (BMI 30.0-34.9) New onset of congestive heart failure Acute respiratory insufficiency Polymyalgia rheumatica Dyspnea on exertion Rheumatoid arthritis Gout Hypothyroidism Essential hypertension Type 2 diabetes mellitus Home Medications ?Medication ?Instructions ?Recorded ?Last Taken ?Type gabapentin 100 mg capsule 100 mg PO BID nerve pain 04/30/15 05/25/24 History allopurinol 100 mg tablet 200 mg PO DAILY gout 10/18/20 05/25/24 History acetaminophen 500 mg tablet 500 mg PO Q6H PRN Pain 10/20/20 Unknown History albuterol sulfate 90 mcg/actuation 1 puff inhalation Q4H PRN 12/26/24 Unknown History aerosol inhaler shortness of breath or wheezing calcium 600 mg (as carbonate)-vit 1 tab PO DAILY supplement 04/16/24 Unknown History D3 20 mcg (800 unit) chewable tablet (Caltrate plus D) hydroxychloroquine 200 mg tablet 200 mg PO BID 04/16/24 05/25/24 History (Plaquenil) mometasone-formoterol HFA 100 2 puff inhalation BID breathing 04/16/24 05/25/24 History mcg-5 mcg/actuation aerosol inhaler (Dulera) ondansetron 4 mg disintegrating 4 - 8 mg PO Q6H PRN PRN nausea 04/16/24 Unknown History tablet levothyroxine 125 mcg tablet 125 mcg PO DAILY@0600 #30 tabs 04/18/24 05/25/24 Rx aspirin 81 mg tablet,delayed 81 mg PO QDAY 05/08/24 05/25/24 History release (Adult Low Dose Aspirin) carvedilol 6.25 mg tablet 6.25 mg PO BID #60 tabs 05/08/24 05/25/24 Rx furosemide 40 mg tablet 40 mg PO DAILY #90 tabs 05/08/24 05/25/24 Rx spironolactone 25 mg tablet 25 mg PO DAILY #90 tabs 05/08/24 Unknown Rx azithromycin 250 mg tablet 250 mg PO DAILY 05/26/24 05/25/24 History hydroxyzine HCl 10 mg tablet 10 - 20 mg PO QHS 05/26/24 Unknown History potassium chloride 20 mEq 20 meq PO DAILY 05/26/24 05/25/24 History tablet,extended release(part/cryst) triamterene 37.5 1 tab PO DAILY 05/26/24 Unknown History mg-hydrochlorothiazide 25 mg tablet Allergy/AdvReac Type Severity Reaction Status Date / Time amoxicillin AdvReac GI upset, Verified 05/25/24 22:56 Nausea and vomiting Family History Mother History of DVT (deep vein thrombosis) Hypertension Father Cancer Lung Sister CAD (coronary artery disease) History of coronary artery bypass surgery Surgical History History of left heart catheterization (LHC) (~11/15/20) H/O right knee surgery History of carpal tunnel surgery History of hysterectomy History of appendectomy Social History (Updated 05/26/24 @ 01:[address] Meredith Mcgee MD) household members: none Smoking Status: Never smoker alcohol intake: current details: occasional substance use type: does not use caffeine: Yes Type: coffee Number of servings: 3 and tea ROS ROS Narrative Admission Review of Systems: CONSTITUTIONAL: No weight loss, + fever, chills, weakness or fatigue. HEENT: + Headache, congestion, rhinorrhea. Eyes: No visual loss, blurred vision, double vision or yellow sclerae. Ears, Nose, Throat: No hearing loss, sneezing, sore throat. SKIN: No rash or itching, lesions, wounds. CARDIOVASCULAR: No chest pain, chest pressure or chest discomfort, palpitations, edema, orthopnea, syncopal events. RESPIRATORY: + Dyspnea, cough without marked sputum production, wheezing. No hemoptysis. GASTROINTESTINAL: + Decreased appetite/anorexia. No nausea, vomiting or diarrhea, abdominal pain, melena, BRBPR. GENITOURINARY: No dysuria, frequency, urgency or retention. NEUROLOGICAL: + Headache. No dizziness, syncope, paralysis, ataxia, numbness or tingling in the extremities, focal weakness, change in bowel or bladder control, seizure. MUSCULOSKELETAL: + muscle, back pain, joint pain or stiffness. HEMATOLOGIC: No anemia. + Easy bleeding/bruising. LYMPHATICS: No enlarged nodes. No history of splenectomy. PSYCHIATRIC: No history of depression or anxiety. ENDOCRINOLOGIC: No reports of sweating, cold or heat intolerance. No polyuria or polydipsia. ALLERGIES: + History of allergic rhinitis. Vital Signs Vital Signs Vital Signs: 05/25/24 22:55 05/25/24 22:56 05/25/24 23:45 Temperature 100.4 F H 100.4 F H Temperature Source Oral Oral Pulse Rate 96 96 Respiratory Rate 16 16 Respiratory Effort Normal Non-Labored Respiratory Depth Normal Respiratory Pattern Blood Pressure 107/57 L 107/57 L Blood Pressure Mean 73 73 Pulse Ox 93 93 Oxygen Delivery Method Room Air Room Air Oxygen Flow Rate (L/min) 05/25/24 23:49 05/25/24 23:56 05/26/24 00:41 Temperature 99.6 F H 99.0 F Temperature Source Oral Oral Pulse Rate 98 99 95 Respiratory Rate 22 H 16 16 Respiratory Effort Respiratory Depth Respiratory Pattern Tachypnea Blood Pressure 103/52 L 104/60 Blood Pressure Mean 69 74 Pulse Ox 95 90 Oxygen Delivery Method Room Air Oxygen Flow Rate (L/min) 05/26/24 01:00 05/26/24 01:02 Temperature 99.1 F Temperature Source Oral Pulse Rate 91 Respiratory Rate 31 H Respiratory Effort Respiratory Depth Respiratory Pattern Blood Pressure 92/58 L Blood Pressure Mean 69 Pulse Ox 88 94 Oxygen Delivery Method Room Air Nasal Cannula Oxygen Flow Rate (L/min) 2 Weight Weight: 175 lb 7.807 oz Body Mass Index (BMI) 31.1 Physical Exam Narrative Physical Examination: General: Awake, alert, oriented x 3 and cooperative, seated upright in the ED bed, fatigued and ill-appearing, no acute distress. Skin: Normal color, normal turgor, no icterus, no cyanosis except occasional stage ecchymoses, abrasion. HEENT: AT/NC, EOMI, PERRLA, moderately dry MM, no carotid bruits or JVD noted. Lungs: Significantly diffusely diminished, greater bases, mildly increased respiratory rate but no distress, mildly coarse with end expiratory wheezing. Heart: Regular rate and rhythm; no gallop, rub audible. Abdomen: Soft, obese, NTTP, ND, distant normal BS, no appreciated HSM. Extremities: No cyanosis, clubbing, or edema. Neurological: Patient awake, alert, oriented as noted, cognitive function intact; pupils equally reactive to light and accommodation, cranial nerves grossly normal, moving all 4 extremities, no focal deficits, strength moderately to severely globally decreased. Psychiatric: Affect appears flat, fatigued, ill-appearing, no acute evidence of depressive or anxiety feelings. Results Lab / Micro Data 05/25/24 23:15 05/25/24 23:15 Labs: Laboratory Results - last 24 hr 05/25/24 23:15: WBC 7.8, RBC 4.72, Hgb 13.8, Hct 42.2, MCV 89.4, MCH 29.2, MCHC 32.7, RDW Std Deviation 46.0 H, RDW Coeff of Jonnathan 14.2, Plt Count 131 L, MPV 13.4 H, Immature Gran % (Auto) 2.600 H, Neut % (Auto) 80.8 H, Lymph % (Auto) 8.5 L, Mccone % (Auto) 7.2, Eos % (Auto) 0.1, Baso % (Auto) 0.8, Absolute Neuts (auto) 6.3, Absolute Lymphs (auto) 0.66 L, Nucleated RBC % 0, Sodium 136, Potassium 3.2 L, Chloride 100, Carbon Dioxide 25.0, Anion Gap 10, BUN 15, Creatinine 0.90, Est GFR (MDRD) Af Amer 78, Est GFR (MDRD) Non-Af 64, BUN/Creatinine Ratio 16.7, Glucose 114 H, Calcium 9.1, Magnesium 1.7 Micro: Microbiology 05/25/24 23:50 Mucosa - Nose SARS-CoV-2, Influenza & RSV (PCR) - Final Influenzae A Imaging Radiology Impression Chest X-Ray 05/26/24 00:02 IMPRESSION: Cardiomegaly and mild prominence of the pulmonary interstitium. No significant change. Reading Location: [facility] Assessment & Plan Assessment/Plan (1) Hypoxia: (2) Influenza A: PLAN: Plan The patient is an 79-year-old female with past medical history hypothyroidism, hypertension, gout, PMR, diabetes mellitus type 2, gout, rheumatoid arthritis, obesity, HFrEF, COPD who presents to the [facility] ED on 06/16 with history of increasing fatigue, malaise, cough, congestion as well as dyspnea with fever 102 with ongoing symptoms worsening since the day prior prompting eventual ED evaluation to be cautious. In the ED patient ambulatory attempts with desaturation down to 87%. #1. Acute hypoxia secondary to acute influenza A complicated by underlying chronic COPD with concern for acute exacerbation: Will admit to [facility] given stable vital signs, maintain on oxygen with wean as tolerated to room air, continue ATC duonebs, PRN albuterol, maintain on Tamiflu and IV Solu-Medrol, HOB, IS parameters w/ pending sputum cultures, procalcitonin, full respiratory viral panel. PT/OT/case management consulted for discharge planning. #2. Hypokalemia: Admission K+ 3.1, magnesium level 1.7 per ED, supplementation given, repeat level in AM. #3. Thrombocytopenia, acute, suspected reactive: Admission platelets 131, given acute infectious presentation suspect reactive, will continue to trend CBC. #4. HFrEF/ Cardiomyopathy unclear type: 04/16/2024 echocardiogram with LVEF 10%, moderately dilated LV, mild MVI, stage II diastolic dysfunction, will continue aspirin, Coreg, Lasix, spironolactone, per current list does not appear to be on statin therapy. #5. Hypertension: Will continue patient home spironolactone, Coreg, Lasix regimen with hold parameters as needed, as needed IV hydralazine. #6. Hypothyroidism: Wilkening patient on levothyroxine regimen. #7. PMR: Per current list patient does not appear to be on any chronic steroids, encourage continued outpatient follow-up with rheumatology as previously arranged. #8. Rheumatoid arthritis: We will continue patient home Plaquenil regimen, encourage continued outpatient follow-up with rheumatology as previously arranged. #9. Chronic Kidney Disease Stage III per GFR trending: Admission BUN/Cr 15/0.90, GFR 64 although primarily stage III range, baseline renal function 0.8-1.0 primarily, repeat BMP in AM. #10. Obesity: Weight loss and lifestyle changes encouraged. #11. Gout: We will continue patient on allopurinol regimen. #12. DVT prophylaxis: Lovenox. #13. CODE status: Patient CYRIL is her son who is present and living will is currently in place. Discussed CODE status at length including difference between FULL code, DNR-CCA and DNR-CC status. Following discussions about the differences in these status, requested DNR-CCA, no intubation status. Discussed this through twice as initially she was not certain but following examples and re-discussion confirmed DNR-CCA status. Advanced Care Planning Face to Face Time: 16 minutes. Charges/Coding Visit Charges Inpatient E&M: 89747 Init Hosp L3 Procedures Hospitalists Procedures: 47636 Advncd Care Plan 30 Min
[2024-05-26] MEDS: Oseltamivir Phosphate 75 MG Capsule PO (02:32)
--- NOTE | 2024-05-26 02:34 | EX.ED.DYSGE1 ---
HPI History of Present Illness Chief Complaint: Shortness of Breath Informant: patient and family Narrative Narrative: Patient is an 79-year-old female with past medical history of hypothyroidism hypertension and congestive heart failure. She reports that in the last 24 hours she has had increased congestion cough fatigue and shortness of breath. She denies any known sick contacts. Other than the history of CHF she denies any history of lung pathology such as asthma COPD or emphysema. However as her shortness of breath sensation has steadily worsened throughout the last 24 hours she presents for evaluation [facility] Medical History Cardiomyopathy Obesity (BMI 30.0-34.9) New onset of congestive heart failure Acute respiratory insufficiency Polymyalgia rheumatica Dyspnea on exertion Rheumatoid arthritis Gout Hypothyroidism Essential hypertension Type 2 diabetes mellitus Home Medications ?Medication ?Instructions ?Recorded ?Last Taken ?Type gabapentin 100 mg capsule 100 mg PO BID nerve pain 04/30/15 05/25/24 History allopurinol 100 mg tablet 200 mg PO DAILY gout 10/18/20 05/25/24 History acetaminophen 500 mg tablet 500 mg PO Q6H PRN Pain 10/20/20 Unknown History albuterol sulfate 90 mcg/actuation 1 puff inhalation Q4H PRN 04/16/24 Unknown History aerosol inhaler shortness of breath or wheezing calcium 600 mg (as carbonate)-vit 1 tab PO DAILY supplement 04/16/24 Unknown History D3 20 mcg (800 unit) chewable tablet (Caltrate plus D) hydroxychloroquine 200 mg tablet 200 mg PO BID 04/16/24 05/25/24 History (Plaquenil) mometasone-formoterol HFA 100 2 puff inhalation BID breathing 04/16/24 05/25/24 History mcg-5 mcg/actuation aerosol inhaler (Dulera) ondansetron 4 mg disintegrating 4 - 8 mg PO Q6H PRN PRN nausea 04/16/24 Unknown History tablet levothyroxine 125 mcg tablet 125 mcg PO DAILY@0600 #30 tabs 04/18/24 05/25/24 Rx aspirin 81 mg tablet,delayed 81 mg PO QDAY 05/08/24 05/25/24 History release (Adult Low Dose Aspirin) carvedilol 6.25 mg tablet 6.25 mg PO BID #60 tabs 05/08/24 05/25/24 Rx furosemide 40 mg tablet 40 mg PO DAILY #90 tabs 05/08/24 05/25/24 Rx spironolactone 25 mg tablet 25 mg PO DAILY #90 tabs 05/08/24 Unknown Rx azithromycin 250 mg tablet 250 mg PO DAILY 05/26/24 05/25/24 History hydroxyzine HCl 10 mg tablet 10 - 20 mg PO QHS 05/26/24 Unknown History potassium chloride 20 mEq 20 meq PO DAILY 05/26/24 05/25/24 History tablet,extended release(part/cryst) triamterene 37.5 1 tab PO DAILY 05/26/24 Unknown History mg-hydrochlorothiazide 25 mg tablet Allergy/AdvReac Type Severity Reaction Status Date / Time amoxicillin AdvReac GI upset, Verified 05/25/24 22:56 Nausea and vomiting Family History Mother History of DVT (deep vein thrombosis) Hypertension Father Cancer Lung Sister CAD (coronary artery disease) History of coronary artery bypass surgery Surgical History History of left heart catheterization (LHC) (~11/15/20) H/O right knee surgery History of carpal tunnel surgery History of hysterectomy History of appendectomy Social History (Updated 05/26/24 @ 01:[address] Meredith Mcgee MD) household members: none Smoking Status: Never smoker alcohol intake: current details: occasional substance use type: does not use caffeine: Yes Type: coffee Number of servings: 3 and tea ROS ROS ED Constitutional Constitutional ED: Reports chills, fever(s) and subjective ENT ENT ED: Reports rhinorrhea and sore throat Cardiovascular Cardiovascular: Denies chest pain Respiratory/Chest Respiratory/Chest: Reports cough and dyspnea Gastrointestinal Gastrointestinal: Reports nausea; Denies abdominal pain, diarrhea or vomiting Genitourinary Genitourinary ED: Denies dysuria Musculoskeletal Musculoskeletal: Reports myalgias Integumentary Denies rash Neurologic Neurologic: Reports headache(s) and weakness Hematologic/Lymphatic Hematologic/Lymphatic: Denies easy bleeding or easy bruising Allergic/Immunologic Allergic/Immunologic ED: Denies mouth swelling or tongue swelling EXAM Physical Exam Const Vital Signs: 05/25/24 22:55 05/25/24 22:56 05/25/24 23:45 Temperature 100.4 F H 100.4 F H Temperature Source Oral Oral Pulse Rate 96 96 Respiratory Rate 16 16 Respiratory Effort Normal Non-Labored Respiratory Depth Normal Respiratory Pattern Blood Pressure 107/57 L 107/57 L Blood Pressure Mean 73 73 Pulse Ox 93 93 Oxygen Delivery Method Room Air Room Air Oxygen Flow Rate (L/min) 05/25/24 23:49 05/25/24 23:56 05/26/24 00:41 Temperature 99.6 F H 99.0 F Temperature Source Oral Oral Pulse Rate 98 99 95 Respiratory Rate 22 H 16 16 Respiratory Effort Respiratory Depth Respiratory Pattern Tachypnea Blood Pressure 103/52 L 104/60 Blood Pressure Mean 69 74 Pulse Ox 95 90 Oxygen Delivery Method Room Air Oxygen Flow Rate (L/min) 05/26/24 01:00 05/26/24 01:02 05/26/24 02:00 Temperature 99.1 F 99.1 F Temperature Source Oral Oral Pulse Rate 91 93 Respiratory Rate 31 H 12 Respiratory Effort Respiratory Depth Respiratory Pattern Blood Pressure 92/58 L 101/57 L Blood Pressure Mean 69 71 Pulse Ox 88 94 94 Oxygen Delivery Method Room Air Nasal Cannula Nasal Cannula Oxygen Flow Rate (L/min) 2 2 05/26/24 02:41 Temperature 98.4 F Temperature Source Pulse Rate 82 Respiratory Rate 24 H Respiratory Effort Respiratory Depth Respiratory Pattern Blood Pressure 95/52 L Blood Pressure Mean 66 Pulse Ox 95 Oxygen Delivery Method Oxygen Flow Rate (L/min) Positive well nourished and well developed General Appearance ED: well developed; Negative for pallor HEENT HEENT Narrative: Nasal mucosa is hyperemic and boggy Cobblestoning is noted in the posterior pharynx consistent with sinus drainage without airway edema or compromise Bilateral TMs are retracted but show no secondary findings to suggest infection Eyes PERRL and EOMs intact bilaterally General Eye ED: Negative for scleral icterus Neck supple and no JVD Resp Resp Narrative: Patient has mild accessory muscle use and breath sounds are diminished throughout with diffuse expiratory wheeze and rhonchi noted in bilateral bases Cardio regular rate and regular rhythm GI normal to inspection, nondistended, normoactive bowel sounds, non-tender, non-distended and no masses Auscultation: normoactive bowel sounds Palpation: soft Extremity normal to inspection Extremity Narrative: No asymmetric edema no pitting edema negative Homans' sign bilaterally Neuro oriented x3, CN's II-XII intact bilaterally and no sensory deficits noted Sensorium / Orientation: alert Motor Exam: strength 5/5 throughout Psych mental status grossly normal Skin no rashes or lesions noted General Skin Exam: Negative for jaundice or pallor MDM MDM MDM Narrative Medical decision making narrative: Patient arrived to the ER with a low-grade fever she had mild increased work of breathing and her pulse ox on room air was 92%. Her constellation symptoms is consistent with a viral infection such as COVID versus influenza versus RSV. She also may have pneumonia or congestive heart failure. Secondary to his basic labs were obtained as well as a chest x-ray and viral swab. Labs revealed no clinically significant finding such as clinically significant Yolanda abnormality acute blood loss anemia or KENYETTA. Chest x-ray revealed no pneumonia or pneumothorax or significant pleural effusion. Viral swab was positive for influenza A. The patient did drop her pulse ox at rest to approximately 89% and with ambulation it dropped to approximately 85%. The patient does not require oxygen at baseline and she is only 1 day into the disease process and therefore her inflammation and respiratory distress will most likely worsen prior to improving. As she is already showing hypoxia with ambulation and occasionally at rest do not feel she would do well at home as the disease process worsens. Therefore medicine was contacted and they do agree to accept the patient for admission. Plan of care was discussed with patient and family and they are agreeable to it History & Record Review Discussion w/independent historian: Patient and Family Lab Data Attestation: I reviewed the patient's lab results. Labs: Laboratory Results - last 24 hr 05/25/24 23:15 WBC 7.8 RBC 4.72 Hgb 13.8 Hct 42.2 MCV 89.4 MCH 29.2 MCHC 32.7 RDW Std Deviation 46.0 H RDW Coeff of Jonnathan 14.2 Plt Count 131 L MPV 13.4 H Immature Gran % (Auto) 2.600 H Neut % (Auto) 80.8 H Lymph % (Auto) 8.5 L [place] % (Auto) 7.2 Eos % (Auto) 0.1 Baso % (Auto) 0.8 Absolute Neuts (auto) 6.3 Absolute Lymphs (auto) 0.66 L Nucleated RBC % 0 Sodium 136 Potassium 3.2 L Chloride 100 Carbon Dioxide 25.0 Anion Gap 10 BUN 15 Creatinine 0.90 Est GFR (MDRD) Af Amer 78 Est GFR (MDRD) Non-Af 64 BUN/Creatinine Ratio 16.7 Glucose 114 H Calcium 9.1 Magnesium 1.7 Radiography Diagnostic Testing: Clinical Impression(s) from Imaging Studies Chest X-Ray 05/26/24 00:02 IMPRESSION: Cardiomegaly and mild prominence of the pulmonary interstitium. No significant change. Reading Location: [facility] Chest x-ray as interpreted by the emergency medicine physician reveals no acute infiltrate pneumothorax or pleural effusion Management Discussion w/another healthcare provider: Hospitalist Discharge Plan Dx/Rx/DC Orders Clinical Impression: Influenza A, Hypoxia, CHF (congestive heart failure), NYHA class III, Essential hypertension, Hypothyroidism Disposition Disposition: Acute Care Hospital [facility]
--- NOTE | 2024-05-26 02:55 | ED.RN ---
LAB CALLED FOR PROLONGED BNP RUN TIME. RESPONSE THERE IS NO REAGENT TO RUN TEST
[2024-05-26] MEDS: Potassium Chloride Oral Tablet 20 MEQ 40 MEQ PO (04:03)
[2024-05-26] MEDS: 0.9% Normal Saline (250mL Bag) 250 ML 999 ML IV (04:31)
[2024-05-26] MEDS: Levothyroxine 125 MCG Tablet PO (06:07)
[2024-05-26 06:44] LABS: Bedside Glucose 142 mg/dL (74-106)
[2024-05-26] MEDS: Ipratropium/Albuterol Sulfate 3 ML AMPUL.NEB INHALATION ×4 (07:07→19:24)
[2024-05-26 08:35] LABS: Absolute Lymphocyte Count 0.37 X10^3/uL (0.83-4.51); Absolute Neutrophil Count 4.5 X10^3/uL (2.0-7.7); Basophil# 0.02 X10^3/uL; Basophil% 0.4 % (0-1); Hematocrit 44.3 % (37-47); Lymphocyte # 0.37 X10^3/ul (0.83-4.51); Lymphocyte % 7.4 % (19-41); Mean Corp Hgb Conc 31.6 g/dL (32-36); Mean Corpuscular Hgb 28.6 pg (27.0-32.0); Mean Corpuscular Volume 90.6 fL (81-99); Mean Platelet Vol. 12.6 fl (6.2-12.0); Monocyte# 0.08 X10^3/uL; Monocyte% 1.6 % (0-10); NRBC Flagged by Analyzer 0 % (0-5); Neutrophil # 4.54 X10^3/uL (2.7-7.7); Neutrophil % 90.4 % (47-70); POSITIVE DIFFERENTIAL YES; Platelet Count 134 K/mm3 (150-450); RBC Distribution Width SD 46.7 fl (35.1-43.9); Red Blood Count 4.89 M/mm3 (4.2-5.4)
[2024-05-26 09:00] LABS: ALB/GLOB Ratio 0.9 RATIO (0.9-2.4); AST(SGOT) 22 U/L (15-37); Alanine Aminotransfer ALT/SGPT 23 U/L (13-56); Albumin, Serum 3.4 g/dL (3.2-5.0); Alkaline Phosphatase 49 U/L (45-117); Anion Gap 11 (5-15); BUN 17 mg/dL (7-18); BUN/Creat Ratio 16.3 RATIO (10-20); Calcium,Total 9.4 mg/dL (8.5-10.1); Chloride 104 mmol/L (98-107); Creatinine, Serum 1.04 mg/dL (0.55-1.02); EST Glomerular Filtration Rate 54 mL/min (>60); Est Glom Filt Rate - Afr Amer 66 mL/min (>60); Globulin 3.8 g/dL (2.2-4.2); Glucose 149 mg/dL (74-106); Potassium 3.3 mmol/L (3.5-5.1); Protein, Total 7.2 g/dL (6.4-8.2); Sodium Level 138 mmol/L (136-145)
--- NOTE | 2024-05-26 09:12 | PCM.PN.HOSP ---
Reason for Visit Reason for Visit: Diagnoses Influenza due to other identified influenza virus with other respiratory manifestations (05/26/24) Hypoxemia (05/26/24) Subjective Subjective Patient is an 79-year-old female who presented to the emergency department with shortness of breath cough congestion and fever over days duration. Tested positive for acute influenza A admitted to regular nursing floor for subsequent management Objective Data Objective Data Vital Signs: Vital Signs Temp Pulse Resp BP Pulse Ox O2 Del Method O2 Flow Rate 97 F L 78 22 H 86/50 L 97 Nasal Cannula 2 05/26/24 06:10 05/26/24 07:09 05/26/24 07:09 05/26/24 06:10 05/26/24 06:10 05/26/24 06:10 05/26/24 06:10 Oxygen Flow Rate (L/min) 2 Oxygen Delivery Method Nasal Cannula Weight: 79.6 kg Body Mass Index (BMI) 31.1 Intake & Output: Intake and Output for Last 24 Hours 05/24/24 05/25/24 05/26/24 23:59 23:59 23:59 Intake Total 850 / 850 Balance 850 / 850 Lab / Micro Data 05/26/24 08:14 05/26/24 08:14 Labs: Laboratory Results - last 24 hr 05/25/24 23:15: WBC 7.8, RBC 4.72, Hgb 13.8, Hct 42.2, MCV 89.4, MCH 29.2, MCHC 32.7, RDW Std Deviation 46.0 H, RDW Coeff of Jonnathan 14.2, Plt Count 131 L, MPV 13.4 H, Immature Gran % (Auto) 2.600 H, Neut % (Auto) 80.8 H, Lymph % (Auto) 8.5 L, [place] % (Auto) 7.2, Eos % (Auto) 0.1, Baso % (Auto) 0.8, Absolute Neuts (auto) 6.3, Absolute Lymphs (auto) 0.66 L, Nucleated RBC % 0, Sodium 136, Potassium 3.2 L, Chloride 100, Carbon Dioxide 25.0, Anion Gap 10, BUN 15, Creatinine 0.90, Est GFR (MDRD) Af Amer 78, Est GFR (MDRD) Non-Af 64, BUN/Creatinine Ratio 16.7, Glucose 114 H, Calcium 9.1, Magnesium 1.7 05/26/24 06:26: POC Glucose 142 H 05/26/24 08:14: WBC 5.0, RBC 4.89, Hgb 14.0, Hct 44.3, MCV 90.6, MCH 28.6, MCHC 31.6 L, RDW Std Deviation 46.7 H, RDW Coeff of Jonnathan 14.0, Plt Count 134 L, MPV 12.6 H, Immature Gran % (Auto) 0.200, Neut % (Auto) 90.4 H, Lymph % (Auto) 7.4 L, [place] % (Auto) 1.6, Eos % (Auto) 0.0, Baso % (Auto) 0.4, Absolute Neuts (auto) 4.5, Absolute Lymphs (auto) 0.37 L, Nucleated RBC % 0, Sodium 138, Potassium 3.3 L, Chloride 104, Carbon Dioxide 23.0, Anion Gap 11, BUN 17, Creatinine 1.04 H, Estim Creat Clear Calc 43.10, Est GFR (MDRD) Af Amer 66, Est GFR (MDRD) Non-Af 54 L, BUN/Creatinine Ratio 16.3, Glucose 149 H, Calcium 9.4, Total Bilirubin 1.10 H, AST 22, ALT 23, Alkaline Phosphatase 49, Total Protein 7.2, Albumin 3.4, Globulin 3.8, Albumin/Globulin Ratio 0.9 Micro: Microbiology 05/25/24 23:50 Mucosa - Nose SARS-CoV-2, Influenza & RSV (PCR) - Final Influenzae A Radiography Diagnostic Testing: Radiology Impression Chest X-Ray 05/26/24 00:02 IMPRESSION: Cardiomegaly and mild prominence of the pulmonary interstitium. No significant change. Reading Location: [facility] Physical Exam Narrative GENERAL: cooperative HEENT: Atraumatic; normocephalic EYES; Anicteric, Normal Conjunctiva NECK; supple, normal thyroid, RESPIRATORY: Diminished to auscultation CARDIOVASCULAR: Regular S1 S2, GI: soft, normoactive bowel sounds, : No Renal angle tenderness; EXTREMITIES: No edema, no clubbing, MUSCULOSKELETAL: no muscle wasting NEURO: Awake; no lateralizing signs. SKIN: No Rash PSYCH; Flat affect Assessment & Plan Assessment/Plan (1) Hypoxia: (2) Influenza A: PLAN: Plan Patient is an 79-year-old female who presented to the emergency department with shortness of breath cough congestion and fever over days duration. Tested positive for acute influenza A admitted to regular nursing floor for subsequent management 1. Acute hypoxia ? Secondary to acute influenza A infection. Admitted to regular nursing floor placed on supplemental oxygen titrated to keep saturation greater than 90 patient was also placed on Tamiflu 2. Hypokalemia -Corrected per protocol 3. Mild thrombocytopenia ? Will monitor with daily CBC with differential 4. Hypertension ? Blood pressure controlled, home medications continued with dose adjustment as needed 5. Assessment hypothyroidism 6. Chronic congestive heart failure with reduced ejection fraction ? Echo from 04/16/2024 demonstrated LVEF of 10% complicating care. Patient remains compensated we will continue with patient treatment regimen from home 7. Rheumatoid arthritis ? Patient is on Plaquenil 8. Class I obesity with BMI of 31 ? Complicating care weight loss advised 9. Chronic kidney disease stage III ruled out 10. Gout ? Patient is on allopurinol 11. DVT prophylaxis ? SC Lovenox Time spent in the patient's overall evaluation,decision-making process, review of diagnostic data, adjustment of management, discussion with other providers, nursing nursing and ancillary staff involved in patient's care documentation, 40 Minutes Charges/Coding Visit Charges Inpatient E&M: 81255 PROLNG IP/OBS E/M EA 15 MIN Multi Select Codes Visit Charges Visit Charges: 76692 PROLNG IP/OBS E/M EA 15 MIN
[2024-05-26] MEDS: Oseltamivir Phosphate 30 MG Capsule PO ×2 (09:13→21:45)
[2024-05-26] MEDS: Hydroxychloroquine 200 MG Tablet PO ×2 (09:13→17:05)
[2024-05-26] MEDS: Allopurinol 100 MG Tablet 200 MG PO (09:14)
[2024-05-26] MEDS: Aspirin E.C. 81 MG Tablet PO (09:14)
[2024-05-26] MEDS: Enoxaparin 40 MG/0.4 ML Syringe SC (09:15)
[2024-05-26] MEDS: Potassium Chloride Oral Tablet 20 MEQ PO (09:15)
[2024-05-26] MEDS: Spironolactone 25 MG Tablet PO (09:16)
[2024-05-26] MEDS: Furosemide 40 MG Tablet PO (09:16)
[2024-05-26] MEDS: Gabapentin 100 MG Capsule PO ×2 (09:36→22:39)
[2024-05-26 10:01] LABS: BNP,B-Type NATRIURETIC PEPTIDE 1865.1 pg/mL (0-100)
[2024-05-26 10:09] LABS: Procalcitonin 0.16 ng/mL (0.00-0.09)
--- NOTE | 2024-05-26 12:53 | CHAPLAIN ---
Type of Pastoral Visit _x__ Initial Visit ___ Follow-up Visit ___ On-call Visit ___ General Patient Visit ___ Spiritual Assessment ___ Family Conference ___ Bereavement ___ Rapid Response ___ Code Blue ___ Other (describe below) Pastoral Care Referral From _x__ Patient ___ Family ___ Nurse ___ Physician ___ Generation Engineering Technologist ___ Microfilm Camera Operator ___ Other (describe below) Sacrament/Intervention _x__ Active listening ___ Anointing ___ Anabaptism ___ Bereavement ___ Communion ___ Judi exploration ___ ___ Life review _x__ Prayer ___ Reconciliation ___ Sacrament of Sick _x__ Supportive presence ___ Wedding ___ Other (describe below) Pastoral Comments patient is boarding in the ED until a room opens for her in the hospital; pt is welcoming and explains the situation; pt welcomes a prayer; pt is understanding about the situation that necessitates waiting
--- NOTE | 2024-05-26 16:09 | CASEMGMT ---
NITA TOM Assessment Face to Face with patient for initial transition planning/care coordination assessment. NITA TOM introduced self and role at [facility], pt voices understanding. Pt is A&Ox4 and is resting comfortably in the chair and is calm. Care providers, pharmacy, and demographics verified. Admitting dx: Hypoxia, Influenza A LACE Strata: 2 PCP: Mariposa Parker Specialists: Dr. Maurer (RA), Jacob (Pulmonary), WILLARD Preferred Pharmacy: [facility] Insurance: [facility] Prescription Benefit: Yes LNOK: Dereck Gomez (Son) Living Arrangements: Pt lives alone in a 2 story home with a FFSU and 2 steps to enter ADLs/IADLs: Ind Transportation: Self, family. Denies concerns DME: Pulse ox, BP Machine. Pt is currently requiring additional oxygen and may qualify for home oxygen use. A verbal list of local in-network DME companies were provided to the pt at this time. Pt prefers [facility] HHC/SNF: Denies history or needs Pt?s goal: Return home Plan: Home no needs e/f possible oxygen. Pt was recently here in March for CHF. Pt reports that when she was home after that stay she was doing very well. Pt currently denies the need for skilled HH, OP Tx, or SNF. CCN is not an option due to the pt home address. See previous RN CM note. Pt states that she feels safe returning home alone once she is medially ready as she has great support from her neighbors and family. PT is ordered and pending, CM to follow. Pt denies further questions or concern at this time. Eduardo Gusman RN, CM
[2024-05-26] MEDS: Carvedilol 6.25 MG Tablet PO (17:03)
[2024-05-26] MEDS: 0.9% Saline Lock 10 ML Syringe IV (21:45)
[2024-05-26] MEDS: MELATONIN 3 MG TABLET PO (22:39)
[2024-05-27] VITALS (17 sets, daily range): BP systolic 90–144; BP diastolic 36–81; PULSE 80–116; RESP 16–32; TEMP 36.3–36.9; O2SAT 97–99; BMI 32.3
[2024-05-27] MEDS: Albuterol 2.5 MG/3 ML VIAL.NEB. INHALATION (01:05)
[2024-05-27] MEDS: Levothyroxine 125 MCG Tablet PO (04:56)
[2024-05-27] MEDS: 0.9% Saline Lock 10 ML Syringe IV ×3 (04:59→21:46)
[2024-05-27 06:27] LABS: Absolute Neutrophil Count 13.9 X10^3/uL (2.0-7.7); Basophil# 0.02 X10^3/uL; Basophil% 0.1 % (0-1); Hematocrit 45.7 % (37-47); Hemoglobin 14.4 g/dL (12.0-15.0); Lymphocyte % 2.6 % (19-41); Mean Corp Hgb Conc 31.5 g/dL (32-36); Mean Corpuscular Hgb 28.7 pg (27.0-32.0); Monocyte# 0.85 X10^3/uL; Monocyte% 5.6 % (0-10); NRBC Flagged by Analyzer 0 % (0-5); Neutrophil # 13.92 X10^3/uL (2.7-7.7); Neutrophil % 90.9 % (47-70); POSITIVE COUNT YES; POSITIVE DIFFERENTIAL YES; Platelet Count 127 K/mm3 (150-450); RBC Distribution Width CV 14.1 % (11.6-14.6); RBC Distribution Width SD 46.8 fl (35.1-43.9); Red Blood Count 5.02 M/mm3 (4.2-5.4); White Blood Count 15.3 K/mm3 (4.4-11.0)
[2024-05-27 06:33] LABS: Differential Indicated SCAN CRITERIA MET
[2024-05-27] MEDS: Ipratropium/Albuterol Sulfate 3 ML AMPUL.NEB INHALATION ×4 (06:40→18:35)
[2024-05-27 06:47] LABS: Anion Gap 11 (5-15); BUN 26 mg/dL (7-18); BUN/Creat Ratio 27.4 RATIO (10-20); Calcium,Total 9.6 mg/dL (8.5-10.1); Chloride 103 mmol/L (98-107); Creatinine, Serum 0.95 mg/dL (0.55-1.02); EST Glomerular Filtration Rate 60 mL/min (>60); Est Glom Filt Rate - Afr Amer 73 mL/min (>60); Estimated Creatinine Clearance 48.11 ml/min; Glucose 157 mg/dL (74-106); Magnesium 2.3 mg/dL (1.6-2.6); Potassium 3.9 mmol/L (3.5-5.1); Sodium Level 137 mmol/L (136-145)
--- NOTE | 2024-05-27 07:33 | PCM.PN.HOSP ---
Reason for Visit Reason for Visit: Diagnoses Influenza due to other identified influenza virus with other respiratory manifestations (05/26/24) Hypoxemia (05/26/24) Subjective Subjective Patient seen still complains of feeling weak and has persistent cough Objective Data Objective Data Vital Signs: Vital Signs Temp Pulse Resp BP Pulse Ox O2 Del Method O2 Flow Rate 98.5 F 92 28 H 107/50 L 99 Nasal Cannula 4 05/27/24 06:49 05/27/24 06:49 05/27/24 06:49 05/27/24 06:49 05/27/24 06:49 05/27/24 06:49 05/27/24 06:49 FiO2 95 05/26/24 11:07 Oxygen Flow Rate (L/min) 4 Oxygen Delivery Method Nasal Cannula Weight: 82.7 kg Body Mass Index (BMI) 32.3 Intake & Output: Intake and Output for Last 24 Hours 05/25/24 05/26/24 05/27/24 23:59 23:59 23:59 Intake Total 850 / 850 Balance 850 / 850 Lab / Micro Data 05/27/24 05:07 05/27/24 05:07 Labs: Laboratory Results - last 24 hr 05/25/24 23:15: B-Natriuretic Peptide 1865.1 H 05/26/24 03:34: Procalcitonin 0.16 H 05/26/24 08:14: WBC 5.0, RBC 4.89, Hgb 14.0, Hct 44.3, MCV 90.6, MCH 28.6, MCHC 31.6 L, RDW Std Deviation 46.7 H, RDW Coeff of Jonnathan 14.0, Plt Count 134 L, MPV 12.6 H, Immature Gran % (Auto) 0.200, Neut % (Auto) 90.4 H, Lymph % (Auto) 7.4 L, [place] % (Auto) 1.6, Eos % (Auto) 0.0, Baso % (Auto) 0.4, Absolute Neuts (auto) 4.5, Absolute Lymphs (auto) 0.37 L, Nucleated RBC % 0, Sodium 138, Potassium 3.3 L, Chloride 104, Carbon Dioxide 23.0, Anion Gap 11, BUN 17, Creatinine 1.04 H, Estim Creat Clear Calc 43.10, Est GFR (MDRD) Af Amer 66, Est GFR (MDRD) Non-Af 54 L, BUN/Creatinine Ratio 16.3, Glucose 149 H, Calcium 9.4, Total Bilirubin 1.10 H, AST 22, ALT 23, Alkaline Phosphatase 49, Total Protein 7.2, Albumin 3.4, Globulin 3.8, Albumin/Globulin Ratio 0.9 05/27/24 05:07: WBC 15.3 H, RBC 5.02, Hgb 14.4, Hct 45.7, MCV 91.0, MCH 28.7, MCHC 31.5 L, RDW Std Deviation 46.8 H, RDW Coeff of Jonnathan 14.1, Plt Count 127 L, MPV 14.0 H, Immature Gran % (Auto) 0.800, Neut % (Auto) 90.9 H, Lymph % (Auto) 2.6 L, [place] % (Auto) 5.6, Eos % (Auto) 0.0, Baso % (Auto) 0.1, Absolute Neuts (auto) 13.9 H, Absolute Lymphs (auto) 0.40 L, Nucleated RBC % 0, Sodium 137, Potassium 3.9, Chloride 103, Carbon Dioxide 23.0, Anion Gap 11, BUN 26 H, Creatinine 0.95, Estim Creat Clear Calc 48.11, Est GFR (MDRD) Af Amer 73, Est GFR (MDRD) Non-Af 60, BUN/Creatinine Ratio 27.4 H, Glucose 157 H, Calcium 9.6, Phosphorus 4.0, Magnesium 2.3 Micro: Microbiology 05/26/24 04:45 Mucosa - Nasopharyngeal Respiratory Panel (PCR) - Final Influenza A (Subtype H1) 05/25/24 23:50 Mucosa - Nose SARS-CoV-2, Influenza & RSV (PCR) - Final Influenzae A Physical Exam Narrative GENERAL: cooperative HEENT: Atraumatic; normocephalic EYES; Anicteric, Normal Conjunctiva NECK; supple, normal thyroid, RESPIRATORY: Diminished to auscultation CARDIOVASCULAR: Regular S1 S2, GI: soft, normoactive bowel sounds, : No Renal angle tenderness; EXTREMITIES: No edema, no clubbing, MUSCULOSKELETAL: no muscle wasting NEURO: Awake; no lateralizing signs. SKIN: No Rash PSYCH; Flat affect Assessment & Plan Assessment/Plan (1) Hypoxia: (2) Influenza A: PLAN: Plan Patient is an 79-year-old female who presented to the emergency department with shortness of breath cough congestion and fever over days duration. Tested positive for acute influenza A admitted to regular nursing floor for subsequent management 1. Acute hypoxia ? Secondary to acute influenza A infection. Admitted to regular nursing floor placed on supplemental oxygen titrated to keep saturation greater than 90 patient was also placed on Tamiflu ? 04/26/2024 patient remains on supplemental oxygen currently 4 L at rest 2. Hypokalemia -Corrected per protocol 3. Mild thrombocytopenia ? Will monitor with daily CBC with differential 4. Hypertension ? Blood pressure controlled, home medications continued with dose adjustment as needed 5. Assessment hypothyroidism 6. Chronic congestive heart failure with reduced ejection fraction ? Echo from 04/16/2024 demonstrated LVEF of 10% complicating care. Patient remains compensated we will continue with patient treatment regimen from home 7. Rheumatoid arthritis ? Patient is on Plaquenil 8. Class I obesity with BMI of 31 ? Complicating care weight loss advised 9. Chronic kidney disease stage III ruled out 10. Gout ? Patient is on allopurinol 11. DVT prophylaxis ? SC Lovenox 12. Physical deconditioning ? Requested for PT OT eval and psych social worker to assist with discharge planning Time spent in the patient's overall evaluation,decision-making process, review of diagnostic data, adjustment of management, discussion with other providers, nursing nursing and ancillary staff involved in patient's care documentation, 40 minutes Charges/Coding Visit Charges Inpatient E&M: 63897 Subs Hosp L2
[2024-05-27] MEDS: Hydroxychloroquine 200 MG Tablet PO ×2 (08:56→18:00)
[2024-05-27] MEDS: Enoxaparin 40 MG/0.4 ML Syringe SC (08:56)
[2024-05-27] MEDS: Oseltamivir Phosphate 30 MG Capsule PO ×2 (08:57→21:46)
[2024-05-27] MEDS: Potassium Chloride Oral Tablet 20 MEQ PO (08:57)
[2024-05-27] MEDS: Spironolactone 25 MG Tablet PO (08:57)
[2024-05-27] MEDS: Allopurinol 100 MG Tablet 200 MG PO (08:57)
[2024-05-27] MEDS: Aspirin E.C. 81 MG Tablet PO (08:57)
[2024-05-27] MEDS: Gabapentin 100 MG Capsule PO ×2 (08:57→21:46)
[2024-05-27] MEDS: Carvedilol 6.25 MG Tablet PO (18:00)
[2024-05-28 03:44] VITALS: BP 102/60; PULSE 82; RESP 16; TEMP 36.8; O2SAT 98
[2024-05-28 04:51] LABS: Absolute Lymphocyte Count 0.45 X10^3/uL (0.83-4.51); Absolute Neutrophil Count 8.6 X10^3/uL (2.0-7.7); Basophil# 0.01 X10^3/uL; Basophil% 0.1 % (0-1); Hematocrit 40.9 % (37-47); Hemoglobin 13.2 g/dL (12.0-15.0); Lymphocyte # 0.45 X10^3/ul (0.83-4.51); Lymphocyte % 4.8 % (19-41); Mean Corp Hgb Conc 32.3 g/dL (32-36); Mean Corpuscular Hgb 29.3 pg (27.0-32.0); Mean Corpuscular Volume 90.7 fL (81-99); Mean Platelet Vol. 13.4 fl (6.2-12.0); Monocyte# 0.32 X10^3/uL; Monocyte% 3.4 % (0-10); NRBC Flagged by Analyzer 0 % (0-5); Neutrophil # 8.55 X10^3/uL (2.7-7.7); POSITIVE DIFFERENTIAL YES; Platelet Count 126 K/mm3 (150-450); RBC Distribution Width CV 14.2 % (11.6-14.6); RBC Distribution Width SD 47.7 fl (35.1-43.9); Red Blood Count 4.51 M/mm3 (4.2-5.4); White Blood Count 9.4 K/mm3 (4.4-11.0)
[2024-05-28 05:11] LABS: Anion Gap 5 (5-15); BUN 24 mg/dL (7-18); BUN/Creat Ratio 28.8 RATIO (10-20); Calcium,Total 9.2 mg/dL (8.5-10.1); Chloride 105 mmol/L (98-107); Creatinine, Serum 0.83 mg/dL (0.55-1.02); EST Glomerular Filtration Rate 70 mL/min (>60); Est Glom Filt Rate - Afr Amer 85 mL/min (>60); Estimated Creatinine Clearance 55.06 ml/min; Glucose 166 mg/dL (74-106); Potassium 4.6 mmol/L (3.5-5.1); Sodium Level 137 mmol/L (136-145)
[2024-05-28 05:51] VITALS: BMI 32.1
[2024-05-28] MEDS: Levothyroxine 125 MCG Tablet PO (06:16)
[2024-05-28] MEDS: 0.9% Saline Lock 10 ML Syringe IV (06:16)
[2024-05-28] MEDS: Ipratropium/Albuterol Sulfate 3 ML AMPUL.NEB INHALATION ×2 (06:55→11:08)
[2024-05-28 06:56] VITALS: PULSE 83; RESP 19; O2SAT 98
[2024-05-28 09:00] VITALS: BP 108/49; PULSE 87; RESP 16; TEMP 36.3; O2SAT 96
[2024-05-28] MEDS: Hydroxychloroquine 200 MG Tablet PO (09:28)
[2024-05-28] MEDS: Carvedilol 6.25 MG Tablet PO (09:28)
[2024-05-28] MEDS: Allopurinol 100 MG Tablet 200 MG PO (09:28)
[2024-05-28] MEDS: Spironolactone 25 MG Tablet PO (09:28)
[2024-05-28] MEDS: Oseltamivir Phosphate 30 MG Capsule PO (09:29)
[2024-05-28] MEDS: Enoxaparin 40 MG/0.4 ML Syringe SC (09:29)
[2024-05-28] MEDS: Furosemide 40 MG Tablet PO (09:29)
[2024-05-28] MEDS: Aspirin E.C. 81 MG Tablet PO (09:30)
[2024-05-28 09:40] VITALS: O2SAT 99
[2024-05-28] MEDS: Potassium Chloride Oral Tablet 20 MEQ PO (10:03)
[2024-05-28] MEDS: Gabapentin 100 MG Capsule PO (10:03)
--- NOTE | 2024-05-28 10:26 | DS.PCM_ITS ---
Providers Date of Admission: 05/26/24 Primary Care Physician: Dr. Mariposa Parker, DO Reason For Visit: HYPOXIA INFLUENZA A Diagnosis Discharge Diagnosis (1) Hypoxia: Status: Acute Code(s): R09.02 - Hypoxemia (2) Influenza A: Status: Acute Code(s): J10.1 - Influenza due to other identified influenza virus with other respiratory manifestations Plan Patient is an 79-year-old female who presented to the emergency department with shortness of breath cough congestion and fever over days duration. Tested positive for acute influenza A admitted to regular nursing floor for subsequent management 1. Acute hypoxia ? Secondary to acute influenza A infection. Admitted to regular nursing floor placed on supplemental oxygen titrated to keep saturation greater than 90 patient was also placed on Tamiflu ? 04/26/2024 patient remains on supplemental oxygen currently 4 L at rest 2. Hypokalemia -Corrected per protocol 3. Mild thrombocytopenia ? Will monitor with daily CBC with differential 4. Hypertension ? Blood pressure controlled, home medications continued with dose adjustment as needed 5. Assessment hypothyroidism 6. Chronic congestive heart failure with reduced ejection fraction ? Echo from 04/16/2024 demonstrated LVEF of 10% complicating care. Patient remains compensated we will continue with patient treatment regimen from home 7. Rheumatoid arthritis ? Patient is on Plaquenil 8. Class I obesity with BMI of 31 ? Complicating care weight loss advised 9. Chronic kidney disease stage III ruled out 10. Gout ? Patient is on allopurinol 11. DVT prophylaxis ? SC Lovenox 12. Physical deconditioning ? Requested for PT OT eval and socially responsible investment adviser to assist with discharge planning Time spent in the patient's overall evaluation,decision-making process, review of diagnostic data, adjustment of management, discussion with other providers, nursing nursing and ancillary staff involved in patient's care documentation, 40 minutes Medications at Discharge Home Medications gabapentin 100 mg capsule 100 mg PO BID nerve pain 04/30/15 allopurinol 100 mg tablet 200 mg PO DAILY gout 10/18/20 acetaminophen 500 mg tablet 500 mg PO Q6H PRN Pain 10/20/20 albuterol sulfate 90 mcg/actuation aerosol inhaler 1 puff inhalation Q4H PRN shortness of breath or wheezing 04/16/24 calcium 600 mg (as carbonate)-vit D3 20 mcg (800 unit) chewable tablet (Caltrate plus D) 1 tab PO DAILY supplement 12/26/24 hydroxychloroquine 200 mg tablet (Plaquenil) 200 mg PO BID 04/16/24 mometasone-formoterol HFA 100 mcg-5 mcg/actuation aerosol inhaler (Dulera) 2 puff inhalation BID breathing 04/16/24 ondansetron 4 mg disintegrating tablet 4 - 8 mg PO Q6H PRN PRN nausea 04/16/24 levothyroxine 125 mcg tablet 125 mcg PO DAILY@0600 #30 tabs 04/18/24 aspirin 81 mg tablet,delayed release (Adult Low Dose Aspirin) 81 mg PO QDAY 05/08/24 carvedilol 6.25 mg tablet 6.25 mg PO BID #60 tabs 05/08/24 furosemide 40 mg tablet 40 mg PO DAILY #90 tabs 05/08/24 spironolactone 25 mg tablet 25 mg PO DAILY #90 tabs 05/08/24 azithromycin 250 mg tablet 250 mg PO DAILY 05/26/24 hydroxyzine HCl 10 mg tablet 10 - 20 mg PO QHS 05/26/24 potassium chloride 20 mEq tablet,extended release(part/cryst) 20 meq PO DAILY 05/26/24 triamterene 37.5 mg-hydrochlorothiazide 25 mg tablet 1 tab PO DAILY 05/26/24 guaifenesin 600 mg tablet, extended release 12 hr (Mucinex) 1,200 mg (2 x 600 mg) PO BID #20 tabs 05/28/24 oseltamivir 30 mg capsule 30 mg PO BID #6 caps 05/28/24 prednisone 20 mg tablet 20 mg PO BID #10 tabs 05/28/24 Physical Exam Narrative GENERAL: cooperative HEENT: Atraumatic; normocephalic EYES; Anicteric, Normal Conjunctiva NECK; supple, normal thyroid, RESPIRATORY: Diminished to auscultation CARDIOVASCULAR: Regular S1 S2, GI: soft, normoactive bowel sounds, : No Renal angle tenderness; EXTREMITIES: No edema, no clubbing, MUSCULOSKELETAL: no muscle wasting NEURO: Awake; no lateralizing signs. SKIN: No Rash PSYCH; Flat affect Weight / BMI Weight Weight: 82.3 kg Body Mass Index (BMI) 32.1 ABG / Lab / Microbiology Data 05/28/24 04:24 05/28/24 04:24 Laboratory: Laboratory Results - last 24 hr 05/28/24 04:24: WBC 9.4, RBC 4.51, Hgb 13.2, Hct 40.9, MCV 90.7, MCH 29.3, MCHC 32.3, RDW Std Deviation 47.7 H, RDW Coeff of Jonnathan 14.2, Plt Count 126 L, MPV 13.4 H, Immature Gran % (Auto) 0.700, Neut % (Auto) 91.0 H, Lymph % (Auto) 4.8 L, Concho % (Auto) 3.4, Eos % (Auto) 0.0, Baso % (Auto) 0.1, Absolute Neuts (auto) 8.6 H, Absolute Lymphs (auto) 0.45 L, Nucleated RBC % 0, Sodium 137, Potassium 4.6, Chloride 105, Carbon Dioxide 27.0, Anion Gap 5, BUN 24 H, Creatinine 0.83, Estim Creat Clear Calc 55.06, Est GFR (MDRD) Af Amer 85, Est GFR (MDRD) Non-Af 70, BUN/Creatinine Ratio 28.8 H, Glucose 166 H, Calcium 9.2 Microbiology: Microbiology 05/26/24 04:45 Mucosa - Nasopharyngeal Respiratory Panel (PCR) - Final Influenza A (Subtype H1) 05/25/24 23:50 Mucosa - Nose SARS-CoV-2, Influenza & RSV (PCR) - Final Influenzae A D/C Instructions Discharge Diet: No restrictions Discharge Activity: Return to Normal Activity Call your doctor if you observe: Fever of 101 or Higher, Shortness of breath, Fainting spells and Chest pain DC O2, CPAP, BIPAP Needs PSN CPAP & BiPAP: BiPAP & CPAP Settings per PSN Fraction of Inspired Oxygen ( 95 05/26/24 11:07 FIO2) Home O2 Discharge instructions: No Meaningful Use Info Meaningful Use Meaningful Use Diagnoses (Choose all that apply): None applicable Ischemic Stroke Statin Dosing Therapy Reference: STATIN DOSE THERAPY REFERENCE: * Patients > 75 years receive moderate or high dose statin therapy. * Patients 75 years or YOUNGER should receive HIGH intensity statin dose unless contraindicated. You will be required to document reason for non-treatment if statin daily dose does not meet guidelines. HIGH DOSE STATIN THERAPY DAILY Atorvastatin > than or = to 40 mg Rosuvastatin > than or = to 20 mg Amlodipine + Atorvastatin > than or = to 2.5/40 mg Ezetimibe + Simvastatin 10/80 mg Simvastatin 80mg Discharge Plan Admission Admit Date/Time: 05/26/24 01:59 Attending Provider: Christian Blevins Primary Care Provider: Mariposa Parker Consulting Providers: Meredith Mcgee Discharge Orders/Prescriptions Prescriptions: New oseltamivir 30 mg Capsule 30 mg PO BID Qty: 6 0RF prednisone 20 mg tablet 20 mg PO BID Qty: 10 0RF guaifenesin [Mucinex] 600 mg tablet extended release 12hr 1,200 mg PO BID Qty: 20 0RF Continued acetaminophen 500 mg tablet 500 mg PO Q6H PRN (Reason: Pain) aspirin [Adult Low Dose Aspirin] 81 mg tablet,delayed release (DR/EC) 81 mg PO QDAY furosemide 40 mg tablet 40 mg PO DAILY Qty: 90 3RF spironolactone 25 mg tablet 25 mg PO DAILY Qty: 90 3RF carvedilol 6.25 mg tablet 6.25 mg PO BID Qty: 60 1RF gabapentin 100 MG capsule 100 mg PO BID Patient Comments: Caltrate 600 plus D 600 mg-20 mcg (800 unit) tablet,chewable 1 tab PO DAILY albuterol sulfate 90 mcg/actuation HFA aerosol inhaler 1 puff inhalation Q4H PRN (Reason: shortness of breath or wheezing) hydroxychloroquine [Plaquenil] 200 mg tablet 200 mg PO BID ondansetron 4 mg tablet,disintegrating 4 - 8 mg PO Q6H PRN PRN (Reason: nausea) Dulera 100-5 mcg/actuation HFA aerosol inhaler 2 puff inhalation BID levothyroxine 125 mcg Tablet 125 mcg PO DAILY@0600 Qty: 30 0RF potassium chloride 20 mEq tablet,ER particles/crystals 20 meq PO DAILY azithromycin 250 mg tablet 250 mg PO DAILY triamterene-hydrochlorothiazid 37.5-25 mg tablet 1 tab PO DAILY hydroxyzine HCl 10 mg tablet 10 - 20 mg PO QHS allopurinol 100 mg tablet 200 mg PO DAILY Referrals / Follow Up: Mariposa Parker DO [Primary Care Provider] - Within 2 Weeks Disposition Disposition (needs filled in before D/C Order can be placed): Home, Self Care Charges/Coding Visit Charges Inpatient E&M: 15788 Disch Hosp >30min
--- NOTE | 2024-05-28 10:40 | CASEMGMT ---
NITA TOM NOTE: Pt being discharged. Pt ambulated in chen w/therapy today, 200 ft, SBA. No therapy recommended. NITA TOM to room. Pt sitting up in chair. Pt denies having any discharge needs/concerns. Grand-dtr will be taking her home and they can stop @ [facility] today to vegetable picker Rx's. [place] NITA CM
[2024-05-28 11:09] VITALS: PULSE 80; RESP 19; O2SAT 95
[2024-05-28 12:23] VITALS: BP 108/49; PULSE 87; RESP 16; TEMP 36.3; O2SAT 96
== END 2024-05-28 12:15 | disposition home or self-care (01) | DRG 194 ==
LOC: ED 05-26 02:34 → MS3 05-26 03:11 → MS2 05-26 11:53
PROVIDERS: Admitting Provider Family Medicine; Emergency Provider Emergency Medicine; PCP Family Medicine; Referring Provider Family Medicine; Visit Provider Internal Medicine
DX: J10.1 Influenza due to other identified influenza virus with other respiratory manifestations (principal); I50.22 Chronic systolic (congestive) heart failure; I42.9 Cardiomyopathy, unspecified; D69.6 Thrombocytopenia, unspecified; Z51.5 Encounter for palliative care; I11.0 Hypertensive heart disease with heart failure; E11.9 Type 2 diabetes mellitus without complications; J44.9 Chronic obstructive pulmonary disease, unspecified; M06.9 Rheumatoid arthritis, unspecified; E03.9 Hypothyroidism, unspecified; E66.811 Obesity, class 1; E87.6 Hypokalemia; M10.9 Gout, unspecified; Z79.51 Long term (current) use of inhaled steroids; Z79.890 Hormone replacement therapy; Z90.710 Acquired absence of both cervix and uterus; Z79.82 Long term (current) use of aspirin; Z68.31 Body mass index [BMI] 31.0-31.9, adult; R09.02 Hypoxemia
CPT/HCPCS: 36415; 71045; 80048; 80053; 82962; 83735; 83880; 84100; 84145; 85025; 87631; 87633; 94640; 94668; 97116; 97162; 97530; 99285; A4216

== ENCOUNTER → 2024-06-17 | Outpatient (CLI) | payer MEDICARE, SELFPAY ==
[2024-06-17 19:15] LABS: Free T3 2.8 pg/mL (2.18-3.98); Thyroid Stim Hormone (TSH) 0.451 uIU/mL (0.300-4.200)
== END | disposition home or self-care (01) ==
LOC: MTLAB 12:32
PROVIDERS: PCP Family Medicine; Referring Provider Family Medicine; Visit Provider Family Medicine
DX: E03.9 Hypothyroidism, unspecified (principal)
CPT/HCPCS: 36415; 84439; 84443; 84481

== ENCOUNTER → 2024-07-03 | Outpatient (CLI) | payer MEDICARE, SELFPAY ==
[2024-07-03 13:32] LABS: Anion Gap 13 (5-15); BUN 17 mg/dL (4-19); BUN/Creat Ratio 17.6 RATIO (10-20); Calcium,Total 9.6 mg/dL (7.6-11.0); Carbon Dioxide 26.6 mmol/L (21.0-32.0); Chloride 101 mmol/L (98-108); Creatinine, Serum 0.98 mg/dL (0.70-1.20); EST Glomerular Filtration Rate 58 (>60); Glucose 115 mg/dL (70-99); Potassium 3.6 mmol/L (3.3-5.1); Sodium Level 140 mmol/L (133-145)
== END | disposition home or self-care (01) ==
LOC: MTLAB 11:24
PROVIDERS: PCP Family Medicine; Referring Provider Physician Assistant Medical; Visit Provider Physician Assistant Medical
DX: I42.9 Cardiomyopathy, unspecified (principal)
CPT/HCPCS: 36415; 80048

== ENCOUNTER → 2024-07-16 | Outpatient (CLI) | payer MEDICARE, SELFPAY ==
--- NOTE | 2024-07-16 09:37 | ECHOCS_ITS ---
Reason For Study : CHF Procedure This was a 2D Doppler, Color Flow transthoracic echocardiogram. The study was technically difficult. Contrast injection was performed. Exam performed in department. Left Ventricle Moderately dilated left ventricle. The left ventricular ejection fraction is 20 %. Stage 1 diastolic dysfunction. There is severe global hypokinesis of the left ventricle. Right Ventricle Normal RV size. Normal systolic function. Atria Normal left atrium. Mitral Valve Normal mitral valve. Tricuspid Valve Normal tricuspid valve. Aortic Valve Trisinus/trileaflet aortic valve. Moderate focal aortic valve calcification. Great Vessels Normal aortic root. The pulmonary artery is normal size. Normal inferior vena cava. Pericardium/Pleural No pericardial effusion. Medication 22 gauge I.V. with prn adaptor inserted into right arm. Diluted definity 2.5ml given slow IV push to enhance endocardial definition. MMode/2D Measurements & Calculations RVDd: 2.9 cm LVOT diam: 2.0 cm Ao root diam: 2.9 cm LVOT area: 3.2 cm2 LAV(MOD-bp): 29.1 ml SV(MOD-sp4): 39.2 ml LVAd ap4: 41.2 cm2 LAV(MOD-bp) Indexed: 16.5 ml/m2 LVLd ap4: 9.0 cm SI(MOD-sp4): 22.2 ml/m2 LAV(MOD-sp2): 31.3 ml EDV(MOD-sp4): 158.2 ml LAV(MOD-sp4): 26.8 ml EDV(sp4-el): 160.6 ml LVAs ap4: 33.5 cm2 LVLs ap4: 7.8 cm ESV(MOD-sp4): 119.0 ml ESV(sp4-el): 121.2 ml EF(MOD-sp4): 24.8 % EF(sp4-el): 24.5 % SV(sp4-el): 39.4 ml LA A4 area: 12.2 cm2 LA dimension(2D): 3.8 cm RA A4 area: 10.0 cm2 Time Measurements MV dec time: 0.08 sec Doppler Measurements & Calculations MV E max isaias: 59.8 cm/sec Lat Peak E' Isaias: 4.4 cm/sec Med Peak E' Isaias: 3.8 cm/sec MV A max isaias: 127.9 cm/sec E/E' lat: 13.6 E/E' med: 15.9 MV E/A: 0.47 MV dec slope: 856.1 cm/sec2 Ao V2 max: 130.6 cm/sec LV V1 max: 131.7 cm/sec Ao max P.8 mmHg LV V1 max P.9 mmHg Ao V2 mean: 88.6 cm/sec LV V1 mean P.9 mmHg Ao mean P.7 mmHg LV V1 mean: 92.3 cm/sec Ao V2 VTI: 29.7 cm LV V1 VTI: 27.7 cm AV (velocity ratio): 0.93 TAMI(I,D): 2.9 cm2 TAMI(V,D): 3.2 cm2 SV(LVOT): 87.6 ml PA V2 max: 120.8 cm/sec PA V2 mean: 82.9 cm/sec ECHO/Echo Complete W/ Contrast Interpretation Summary Moderately dilated left ventricle. The left ventricular ejection fraction is 20 %. There is severe global hypokinesis of the left ventricle. Stage 1 diastolic dysfunction. Contrast injection was performed. Compared to previous study, the left ventricu lar systolic function has improved.. Ordering Physician: Sofia Pereyra Referring Physician: Sofia Pereyra Performed By: Monica Lozano RCS
== END | disposition home or self-care (01) ==
LOC: CVS 09:33
PROVIDERS: PCP Family Medicine; Referring Provider Physician Assistant Medical; Visit Provider Physician Assistant Medical
DX: R06.02 Shortness of breath (principal)
CPT/HCPCS: 93306; Q9957; A4216; C8929

== ENCOUNTER → 2024-09-11 | Outpatient (CLI) | payer MEDICARE, SELFPAY ==
[2024-09-11 12:41] LABS: Thyroid Stim Hormone (TSH) 0.051 uIU/mL (0.300-4.200)
== END | disposition home or self-care (01) ==
LOC: MTLAB 10:51
PROVIDERS: PCP Family Medicine; Referring Provider Nurse Practitioner Family; Visit Provider Nurse Practitioner Family
DX: E03.9 Hypothyroidism, unspecified (principal)
CPT/HCPCS: 36415; 84439; 84443; 84481

== ENCOUNTER → 2024-11-02 | Outpatient (CLI) | payer MEDICARE, SELFPAY ==
--- NOTE | 2024-11-02 12:49 | ECHOLC_ITS ---
Reason For Study Reason For Study: CONGESTIVE HEART FAILURE Procedure This was a 2D Doppler, Color Flow transthoracic echocardiogram. Contrast injection was performed. Exam performed in department. Left Ventricle Normal LV size. The left ventricular ejection fraction is 40 %. Stage 1 diastolic dysfunction. There is mild to moderate global hypokinesis of the left ventricle. Right Ventricle Normal RV size. Normal systolic function. Atria Normal left atrium. Normal right atrium. Great Vessels Normal aortic root. Pericardium/Pleural No pericardial effusion. Medication 22 gauge I.V. with prn adaptor inserted into right arm. Diluted definity 2ml given slow IV push to enhance endocardial definition. MMode/2D Measurements & Calculations RVDd: 3.3 cm LAV(MOD-bp): 24.0 ml LVAd ap4: 41.7 cm2 LAV(MOD-bp) Indexed: 13.7 ml/m2 LVLd ap4: 9.0 cm LAV(MOD-sp2): 32.5 ml EDV(MOD-sp4): 157.1 ml LAV(MOD-sp4): 17.3 ml EDV(sp4-el): 163.0 ml LVAs ap4: 29.2 cm2 LVLs ap4: 7.8 cm ESV(MOD-sp4): 88.6 ml ESV(sp4-el): 92.9 ml EF(MOD-sp4): 43.6 % EF(sp4-el): 43.0 % SV(MOD-sp4): 68.6 ml SV(MOD-sp2): 45.5 ml LVAd ap2: 35.2 cm2 LVLd ap2: 8.4 cm SI(MOD-sp4): 39.0 ml/m2 SI(MOD-sp2): 25.9 ml/m2 EDV(MOD-sp2): 122.1 ml EDV(sp2-el): 125.3 ml LVAs ap2: 26.0 cm2 LVLs ap2: 7.3 cm ESV(MOD-sp2): 76.6 ml ESV(sp2-el): 78.4 ml EF(MOD-sp2): 37.2 % SV(sp4-el): 70.1 ml Ao sinus diam: 2.5 cm LA A4 area: 9.7 cm2 LA dimension(2D): 3.7 cm RA A4 area: 7.3 cm2 TAPSE: 1.9 cm Time Measurements MV dec time: 0.24 sec Doppler Measurements & Calculations MV E max isaias: 62.0 cm/sec Lat Peak E' Isaias: 7.6 cm/sec Med Peak E' Isaias: 7.6 cm/sec MV A max isaias: 101.2 cm/sec E/E' lat: 8.2 E/E' med: 8.2 MV E/A: 0.61 MV dec slope: 257.9 cm/sec2 ECHO/Echo Limited w/Contrast Interpretation Summary Normal LV size. The left ventricular ejection fraction is 40 %. There is mild to moderate global hypokinesis of the left ventricle. Stage 1 diastolic dysfunction. Contrast injection was performed. Ordering Physician: Sofia Pereyra Referring Physician: Mariposa Parker Performed By: Sangita Alexander RDCS
== END | disposition home or self-care (01) ==
LOC: CVS 12:44
PROVIDERS: PCP Family Medicine; Referring Provider Physician Assistant Medical; Visit Provider Physician Assistant Medical
DX: R06.02 Shortness of breath (principal)
CPT/HCPCS: 93308; Q9957; A4216; C8924

== ENCOUNTER → 2024-11-04 | Outpatient (CLI) | payer MEDICARE, SELFPAY ==
--- NOTE | 2024-11-04 16:19 | MRI_ITS ---
PROCEDURE: UPPER EXT JOINT ONLY(ROUTINE) 11/04/2024 REASON FOR EXAM: PAIN IN R SHOULDER AFTER FALL TECHNIQUE: UPPER EXT JOINT ONLY(ROUTINE) Multiplanar and multisequence images were obtained without IV contrast administration. COMPARISON: None FINDINGS: Full-thickness full width tear of the supraspinatus tendon with retraction to the level of the superior glenoid. Full-thickness tear of the mid to anterior fibers of the infraspinatus tendon width retraction to the glenoid rim. Some posterior infraspinatus tendon fibers remain attached but demonstrate moderate/severe tendinopathy. Moderate subscapularis tendinopathy. Moderate intracapsular biceps tendinopathy. Moderate diffuse rotator cuff muscle atrophy. Severe glenohumeral joint osteoarthritis including near-complete chondral loss throughout the humeral head and glenoid with osseous remodeling and low-level bone marrow edema as well as marginal osteophytes. Small glenohumeral joint effusion width synovitis. Several ossified joint bodies in the axillary pouch and subscapularis recess. Diffuse degenerative tearing of the glenoid labrum. Moderate acromioclavicular joint osteoarthritis including small marginal osteophytes and capsular hypertrophy. Mild lateral acromial downsloping. Negative for acute fracture or marrow replacement. Moderate fluid in the subacromial/subdeltoid bursa. MRI/Upper Ext Joint Only(Routine) IMPRESSION: 1. Full-thickness full width retracted supraspinatus tendon tear. 2. Full-thickness partial width retracted infraspinatus tendon tear width super imposed tendinopathy. 3. Moderate subscapularis and long head biceps tendinopathy. 4. Moderate diffuse rotator cuff muscle atrophy. 5. Severe glenohumeral and moderate acromioclavicular joint osteoarthritis as a florina. 6. Fluid in the subacromial/subdeltoid bursa. Reading Location: [facility]
[2024-11-04 17:14] LABS: Hematocrit 45.1 % (37-47); Hemoglobin 14.6 g/dL (12.0-15.0); Immature Granulocytes Count 0.030 X10^3/uL (0.0-0.0); Mean Corp Hgb Conc 32.4 g/dL (32-36); Mean Corpuscular Volume 93.0 fL (81-99); Mean Platelet Vol. 12.1 fl (6.2-12.0); NRBC Flagged by Analyzer 0 % (0-5); Platelet Count 203 K/mm3 (150-450); RBC Distribution Width CV 13.4 % (11.6-14.6); RBC Distribution Width SD 46.2 fl (35.1-43.9); Red Blood Count 4.85 M/mm3 (4.2-5.4); White Blood Count 6.6 K/mm3 (4.4-11.0)
[2024-11-04 18:05] LABS: AST(SGOT) 26 U/L (<=31); Alanine Aminotransfer ALT/SGPT 14 U/L (<=34); Albumin, Serum 4.4 g/dL (3.4-4.8); Alkaline Phosphatase 98 U/L (35-104); Anion Gap 14 (5-15); BUN 28 mg/dL (4-19); BUN/Creat Ratio 23.8 RATIO (10-20); Calcium,Total 9.8 mg/dL (7.6-11.0); Carbon Dioxide 25.6 mmol/L (21.0-32.0); Chloride 101 mmol/L (98-108); Globulin 2.9 g/dL (2.2-4.2); Glucose 148 mg/dL (70-99); Potassium 3.7 mmol/L (3.3-5.1)
== END | disposition home or self-care (01) ==
LOC: MRI 16:15
PROVIDERS: PCP Family Medicine; Referring Provider Nurse Practitioner Family; Visit Provider Nurse Practitioner Family
DX: M25.511 Pain in right shoulder (principal); M06.4 Inflammatory polyarthropathy; Z79.899 Other long term (current) drug therapy
CPT/HCPCS: 36415; 73221; 80053; 85025

== ENCOUNTER → 2025-03-08 | Outpatient (CLI) | payer MEDICARE, SELFPAY ==
[2025-03-08 13:03] LABS: Creatinine, Urine (random) 64.70 mg/dL (28.00-217.00); Microalbumin,Random Urine 16.1 mg/L (<20 mg/L)
[2025-03-08 13:36] LABS: Cholesterol 179 mg/dL (<=200); Free T3 2.7 pg/mL (2.18-3.98); Low Density Lipoprotein Calc. 108 mg/dL; Triglycerides 98 mg/dL; Very Low Density Lipoprotein 20 mg/dL (5-40); cholesterol:hdl ratio screen 3.39
[2025-03-08 14:04] LABS: AST(SGOT) 18 U/L (<=31); Alanine Aminotransfer ALT/SGPT 12 U/L (<=34); Albumin, Serum 4.2 g/dL (3.4-4.8); BUN 23 mg/dL (4-19); BUN/Creat Ratio 25.1 RATIO (10-20); Calcium,Total 9.6 mg/dL (7.6-11.0); Carbon Dioxide 26.0 mmol/L (21.0-32.0); Chloride 104 mmol/L (98-108); Glucose 120 mg/dL (70-99); Potassium 4.4 mmol/L (3.3-5.1)
[2025-03-08 14:14] LABS: Alkaline Phosphatase 87 U/L (35-104); Anion Gap 13 (5-15); Globulin 2.8 g/dL (2.2-4.2)
== END | disposition home or self-care (01) ==
LOC: MTLAB 09:53
PROVIDERS: PCP Family Medicine; Referring Provider Family Medicine; Visit Provider Family Medicine
DX: E03.9 Hypothyroidism, unspecified (principal); E11.9 Type 2 diabetes mellitus without complications; I10 Essential (primary) hypertension; Z51.81 Encounter for therapeutic drug level monitoring
CPT/HCPCS: 36415; 80053; 80061; 82043; 82570; 83036; 84439; 84443; 84481

== ENCOUNTER 2025-03-16 08:30 | Inpatient (IN) | payer MEDICARE, SELFPAY ==
[2025-03-16] VITALS (17 sets, daily range): BP systolic 103–147; BP diastolic 47–87; PULSE 45–95; RESP 12–20; TEMP 35.8–37.2; O2SAT 94–100; BMI 32.6; BMI 32.7
--- NOTE | 2025-03-16 09:13 | CT_ITS ---
PROCEDURE: ABDOMEN/PELVIS W IV CONT ONLY 03/16/2025 REASON FOR EXAM: DIFFUSE ABDOMINAL PAIN WITH NAUSEA AND VOMITING. TECHNIQUE: Procedure Code: [id number] Modality: CT Procedure: ABDOMEN/PELVIS W IV CONT ONLY Coronal and Sagittal reconstruction series were provided. CONTRAST: Isovue-300 VOLUME: 84 mL One or more dose reduction techniques were used (e.g., Automated exposure control, adjustment of the mA and/or kV according to patient size, use of iterative reconstruction technique. RADIATION DOSE SUMMARY: DLP: 1032 mGycm COMPARISON: None available FINDINGS: Lung bases: Mild discoid atelectasis in the right base. Mild cardiomegaly. No pericardial or pleural effusion. Small hiatal hernia. Small right pleural effusion. Liver: No liver mass. No biliary ductal dilatation. Gallbladder: Markedly distended hydropic gallbladder with no wall thickening or pericholecystic fluid. Normal biliary tree. Spleen: Normal Pancreas: Unremarkable appearance of the pancreas. No mass. Mild ductal dilatation Adrenals: Normal Kidneys: The kidneys enhance symmetrically. There is no mass or hydronephrosis. No nephrolithiasis seen. Bladder: Normal Reproductive Organs: Status post hysterectomy. Bowel: Diverticulosis of the sigmoid colon without active diverticulitis. Mildly dilated loops of small bowel centrally without any distinct transition Appendix: Status post appendectomy. Lymph nodes: No lymphadenopathy. Vasculature: Atherosclerosis of the aorta. No aneurysm. Peritoneum / Retroperitoneum: Significant pneumoperitoneum. Free fluid in the pelvis. Bones: Multilevel disc disease and spondylosis. CT/Abdomen/Pelvis W IV Cont ONLY IMPRESSION: Extensive pneumoperitoneum consistent with bowel perforation. The exact site o f the bowel perforation can not be elicited on this exam. Free fluid in the right pericolic gutter and pelvis. Mild atelectatic changes of the right base. Red Alert: Pneumoperitoneum The critical findings in the findings and impression above were relayed directl y by me by telephone to Nain Richardson on 03/16/2025 at 12:49 pm with readback verification. Patient's on its way to the [facility] Reading Location: [id number]
--- NOTE | 2025-03-16 09:14 | ED.VIS.GI ---
HPI HPI - GI History of Present Illness Chief Complaint: Abd Pain Informant: patient and family Abdominal Pain/Flank Pain Onset: Days (Saturday morning.) Context: Gradual Onset Timing: Continuous Location: Diffuse Current Severity: Moderate Maximum Severity: Moderate Worsened by: Nothing Relieved by: Nothing Nausea/Vomiting/Emesis GI Symptom: Positive for Nausea and Vomiting Onset: Days Severity: Mild Diarrhea/Melena/Hematochezia GI Symptom: Positive for Diarrhea Onset: Days Stool Quality: Positive for Loose Severity: Mild Associated Symptoms Associated Symptoms: Negative for Dysuria, Frequency, Hematuria or Urgency Narrative Narrative: 79-year-old female history cardiomyopathy and CHF prior appendectomy and hysterectomy. States on Saturday she had abdominal pain. Nausea, vomiting diarrhea. Wirt a little better on Saturday and worse again today. Describes the pain as diffuse. Feels bloated. Denies any dysuria. She has had a fever as high as out of 0.3. Prior similar symptoms: No Recent Illness/Hospitalization: No PFSH PFSH Medical History Cardiomyopathy Obesity (BMI 30.0-34.9) New onset of congestive heart failure Acute respiratory insufficiency Polymyalgia rheumatica Dyspnea on exertion Rheumatoid arthritis Gout Hypothyroidism Essential hypertension Type 2 diabetes mellitus Home Medications ?Medication ?Instructions ?Recorded ?Last Taken ?Type gabapentin 100 mg capsule 100 mg PO BID nerve pain 04/30/15 05/25/24 History acetaminophen 500 mg tablet 500 mg PO Q6H PRN Pain 10/20/20 Unknown History albuterol sulfate 90 mcg/actuation 1 puff inhalation Q4H PRN 04/16/24 Unknown History aerosol inhaler shortness of breath or wheezing calcium 600 mg (as carbonate)-vit 1 tab PO DAILY supplement 04/16/24 Unknown History D3 20 mcg (800 unit) chewable tablet (Caltrate plus D) hydroxychloroquine 200 mg tablet 200 mg PO BID 04/16/24 05/25/24 History (Plaquenil) aspirin 81 mg tablet,delayed 81 mg PO QDAY 05/08/24 05/25/24 History release (Adult Low Dose Aspirin) allopurinol 100 mg tablet 100 mg PO BID gout 07/23/24 Unknown History fluticasone fur. 200 mcg-umeclid 1 inh inhalation Q24H 07/23/24 Unknown History 62.5 mcg-vilant 25 mcg inhalat.powder (Trelegy Ellipta) dapagliflozin propanediol 10 mg 10 mg PO QAM #90 tabs 10/16/24 Unknown Rx tablet (Farxiga) levothyroxine 112 mcg tablet 112 mcg PO QDAY 11/13/24 Unknown History sacubitril 49 mg-valsartan 51 mg 1 tab PO BID #180 tabs 11/16/24 Unknown Rx tablet (Entresto) carvedilol 6.25 mg tablet 6.25 mg PO BID #180 tabs 02/10/25 Unknown Rx spironolactone 25 mg tablet 25 mg PO DAILY #90 tabs 02/10/25 Unknown Rx Allergy/AdvReac Type Severity Reaction Status Date / Time amoxicillin AdvReac GI upset, Verified 03/16/25 08:31 Nausea and vomiting Family History Mother History of DVT (deep vein thrombosis) Hypertension Father Cancer Lung Sister CAD (coronary artery disease) History of coronary artery bypass surgery Surgical History History of left heart catheterization (LHC) (~11/15/20) H/O right knee surgery History of carpal tunnel surgery History of hysterectomy History of appendectomy Social History household members: none Smoking Status: Never smoker alcohol intake: current details: occasional substance use type: does not use caffeine: Yes Type: coffee Number of servings: 3 and tea ROS ROS ED ROS Narrative Nausea, vomiting diarrhea. Abdominal pain. Fever. Constitutional Constitutional ED: Reports fever(s) ENT ENT ED: Denies ear pain Cardiovascular Cardiovascular: Denies chest pain Respiratory/Chest Respiratory/Chest: Denies cough or dyspnea Gastrointestinal Gastrointestinal: Reports abdominal pain, constipation, diarrhea, nausea and vomiting; Denies melena Genitourinary Genitourinary ED: Denies dysuria or hematuria Musculoskeletal Musculoskeletal: Denies arthralgias Integumentary Denies abscess Neurologic Neurologic: Denies headache(s) Psychiatric Psychiatric: Denies anxiety Endocrine Endocrinology: Denies polydipsia Hematologic/Lymphatic Hematologic/Lymphatic: Denies easy bleeding Allergic/Immunologic Allergic/Immunologic ED: Denies mouth swelling, tongue swelling or urticaria EXAM Physical Exam Narrative Exam Narrative: 79-year-old female lying in bed vital signs are stable she is afebrile. She is accompanied by family member. She does look dehydrated. H EENT exam pupils round react light. Dry mucous membranes. No trauma. Neck nontender no lymphadenopathy. Back nontender. Lungs clear to auscultation bilaterally. Heart bradycardic in the 40s. No murmur. Chest wall ribs nontender. Abdomen soft mildly distended diffusely tender in all 4 quadrants. No peritoneal signs. No pulsatile mass. No obvious hernia. No specific right upper quadrant tenderness but she is tender everywhere. Moving all 4 extremities. Normal strength. No edema. Normal range of motion. Neurologically she is awake alert. Answering questions following commands. Const Vital Signs: 03/16/25 08:30 03/16/25 10:30 Temperature 99 F Temperature Source Temporal Pulse Rate 45 L 92 Respiratory Rate 12 20 H Blood Pressure 129/55 H 146/54 H Blood Pressure Mean 79 84 Pulse Ox 96 96 Oxygen Delivery Method Room Air MDM MDM MDM Narrative Medical decision making narrative: 79-year-old female nausea, vomiting and diarrhea now having abdominal pain and bloating. Differential would include bowel obstruction, gastroenteritis, gallbladder disease versus many other etiologies. CAT scan and labs to be obtained. She be given a liter of normal saline for dehydration. Zofran for nausea and morphine for pain. Repeat exam at around 11 AM patient still has abdominal pain should be given additional morphine. CAT scan official read is pending. Under initial review by myself and general surgeon Dr. Burke De La Cruz to patient is free air. Should be started on IV Zosyn. He is tolerating the patient and family right now about taken to the OR for an exploratory abdominal surgery to find out where the free air is coming from and where the perforation is. Patient is comfortable with the plan. History & Record Review Discussion w/independent historian: Patient and Family Additional record(s) reviewed:: Prior inpatient record, Prior outpatient record, Prior ED visit and Prior labs Lab Data Attestation: I reviewed the patient's lab results. Lab results narrative: CBC shows a white count 18.9. H&H of 14 and 45. Platelets 182. 93% neutrophils. Electrolytes show a gap of 14. BUN/creatinine 24 and 1.1. Glucose 68. Liver enzymes unremarkable. Amylase 28. Normal. Lipase 10. Urinalysis is negative. Micro pending. CT abdomen is free air waiting on official read. Labs: Laboratory Results - last 24 hr 03/16/25 03/16/25 09:22 10:53 WBC 18.9 H RBC 4.86 Hgb 14.6 Hct 45.3 MCV 93.2 MCH 30.0 MCHC 32.2 RDW Std Deviation 45.1 H RDW Coeff of Jonnathan 13.2 Plt Count 182 MPV 11.6 Immature Gran % (Auto) 2.700 H Neut % (Auto) 93.0 H Lymph % (Auto) 2.0 L [place] % (Auto) 1.9 Eos % (Auto) 0.1 Baso % (Auto) 0.3 Absolute Neuts (auto) 17.6 H Absolute Lymphs (auto) 0.38 L Nucleated RBC % 0 Sodium 135 Potassium 3.8 Chloride 97 L Carbon Dioxide 24.0 Anion Gap 14 BUN 24 H Creatinine 1.10 Est GFR (MDRD) Non-Af 51 L BUN/Creatinine Ratio 21.5 H Glucose 68 L Calcium 9.4 Total Bilirubin 0.92 AST 25 ALT 10 Alkaline Phosphatase 103 Total Protein 7.2 Albumin 3.7 Globulin 3.5 Albumin/Globulin Ratio 1.0 Amylase 28 Lipase 10 L Urine Color Yellow Urine Clarity Clear Urine pH 6.0 Ur Specific [place] 1.015 Urine Protein 30 H Urine Glucose (UA) 250 H Urine Ketones 50 H Urine Occult Blood 25 H Urine Nitrite Negative Urine Bilirubin Negative Urine Urobilinogen Normal Ur Leukocyte Esterase Negative Rhythm Strip Rhythm Strip: Sinus Rhythm Rate: 89 Ectopy: None EKG Initial EKG: Attestation: I personally reviewed and interpreted this EKG as follows: Interpretation: Sinus Rhythm Comments: Normal sinus rhythm rate 89 no acute signs of NC or ischemia. Discharge Plan Dx/Rx/DC Orders Clinical Impression: Abdominal pain, Leukocytosis, Bowel perforation, Cardiomyopathy, History of congestive heart failure Disposition Disposition: Acute Care [facility]
--- NOTE | 2025-03-16 09:17 | EKG12_ITS ---
Test Reason : GENERAL Blood Pressure : */* mmHG Vent. Rate : 89 BPM Atrial Rate : 89 BPM P-R Int : 172 ms QRS Dur : 94 ms QT Int : 350 ms P-R-T Axes : 78 -15 58 degrees QTcB Int : 425 ms Sinus rhythm with occasional Premature ventricular complexes Otherwise normal ECG Confirmed by STEVE HAMILTON, DAWOOD ([id number]), food editor JUANITA GUERRIER ([id number]) on 03/17/2025 9:14:44 AM Referred By: Confirmed By: DAWOOD WILSON MD
[2025-03-16] MEDS: 0.9% Normal Saline (1000mL) 1,000 ML 999 ML IV (09:30)
[2025-03-16 09:31] LABS: Hematocrit 45.3 % (37-47); Hemoglobin 14.6 g/dL (12.0-15.0); Immature Granulocytes Count 0.510 X10^3/uL (0.0-0.0); Mean Corp Hgb Conc 32.2 g/dL (32-36); Mean Corpuscular Volume 93.2 fL (81-99); Mean Platelet Vol. 11.6 fl (6.2-12.0); NRBC Flagged by Analyzer 0 % (0-5); POSITIVE DIFFERENTIAL YES; Platelet Count 182 K/mm3 (150-450); RBC Distribution Width CV 13.2 % (11.6-14.6); RBC Distribution Width SD 45.1 fl (35.1-43.9); Red Blood Count 4.86 M/mm3 (4.2-5.4); White Blood Count 18.9 K/mm3 (4.4-11.0)
[2025-03-16 10:12] LABS: AST(SGOT) 25 U/L (<=31); Alanine Aminotransfer ALT/SGPT 10 U/L (<=34); Albumin, Serum 3.7 g/dL (3.4-4.8); Alkaline Phosphatase 103 U/L (35-104); Amylase 28 U/L (28-100); Anion Gap 14 (5-15); BUN 24 mg/dL (4-19); BUN/Creat Ratio 21.5 RATIO (10-20); Calcium,Total 9.4 mg/dL (7.6-11.0); Carbon Dioxide 24.0 mmol/L (21.0-32.0); Chloride 97 mmol/L (98-108); Globulin 3.5 g/dL (2.2-4.2); Glucose 68 mg/dL (70-99); Lipase 10 U/L (13-75); Potassium 3.8 mmol/L (3.3-5.1)
[2025-03-16 10:57] LABS: Mucous, Urine 0 SEEN /hpf (<or=2+); Red Blood Cells-Urine 0 SEEN /hpf (0-5); Squamous Epithelial Cells - UA 0 SEEN /hpf (5-10)
[2025-03-16 11:00] LABS: Color, Urine Yellow (Yellow); Glucose, Dipstick 250 mg/dl (Normal); Ketone-Dipstick 50 mg/dl (Negative); Leukocyte Esterase-Dipstick Negative /ul (Negative); Nitrite-Dipstick Negative (Negative); Occult Blood-Urine 25 /ul (Negative); Protein-Dipstick 30 mg/dl (Negative); Specific Gravity, Urine 1.015 (1.002-1.030); Urine Bilirubin Dipstick Negative (Negative)
--- NOTE | 2025-03-16 11:07 | HP.PCM.SX_ITS ---
HPI - General HPI Narrative SHIRA CHEW, is a 79 F who presents with abdominal pain that started Saturday. She reports that it got a little bit better yesterday and then got worse today. She does report that she has some nausea but no vomiting. She denies fevers or chills. She is tender all throughout the abdomen with no radiation. She has a history of appendectomy and hysterectomy [facility] Medical History Cardiomyopathy Obesity (BMI 30.0-34.9) New onset of congestive heart failure Acute respiratory insufficiency Polymyalgia rheumatica Dyspnea on exertion Rheumatoid arthritis Gout Hypothyroidism Essential hypertension Type 2 diabetes mellitus Home Medications ?Medication ?Instructions ?Recorded ?Last Taken ?Type gabapentin 100 mg capsule 100 mg PO BID nerve pain 01/0505/25/24 History acetaminophen 500 mg tablet 500 mg PO Q6H PRN Pain 05/12 Unknown History albuterol sulfate 90 mcg/actuation 1 puff inhalation Q 4H PRN 04/16/24 Unknown History aerosol inhaler shortness of breath or wheez ing calcium 600 mg (as carbonate)-vit 1 tab PO DAILY suppl ement 04/16/24 Unknown History D3 20 mcg (800 unit) chewable tablet (Caltrate plus D) hydroxychloroquine 200 mg tablet 200 mg PO BID 4 05/25/24 History (Plaquenil) aspirin 81 mg tablet,delayed 81 mg PO QDAY 05/08/24 History release (Adult Low Dose Aspirin) allopurinol 100 mg tablet 100 mg PO BID gout 07/23/24 Unknown History fluticasone fur. 200 mcg-umeclid 1 inh inhalation Q24H 07/23/24 Unknown History 62.5 mcg-vilant 25 mcg inhalat.powder (Trelegy Ellipta) dapagliflozin propanediol 10 mg 10 mg PO QAM #90 tabs 10/16/24 Unknown Rx tablet (Farxiga) levothyroxine 112 mcg tablet 112 mcg PO QDAY 11/13/24 Unknown History sacubitril 49 mg-valsartan 51 mg 1 tab PO BID #180 tab s 11/16/24 Unknown Rx tablet (Entresto) carvedilol 6.25 mg tablet 6.25 mg PO BID #180 tabs Unknown Rx spironolactone 25 mg tablet 25 mg PO DAILY #90 tabs Unknown Rx Allergy/AdvReac Type Severity Reaction Status Date / Time amoxicillin AdvReac GI upset, Verified 03/16/25 08:31 Nausea and vomiting Family History Mother History of DVT (deep vein thrombosis) Hypertension Father Cancer Lung Sister CAD (coronary artery disease) History of coronary artery bypass surgery Surgical History History of left heart catheterization (LHC) (~11/15/20) H/O right knee surgery History of carpal tunnel surgery History of hysterectomy History of appendectomy Social History household members: none Smoking Status: Never smoker alcohol intake: current details: occasional substance use type: does not use caffeine: Yes Type: coffee Number of servings: 3 and tea ROS Constitutional Constitutional: Denies anorexia or fatigue Eyes Eyes: Denies blurry vision ENT HEENT: Denies abnormal hearing Cardiovascular Cardiovascular: Denies chest pain Gastrointestinal Gastrointestinal: Reports abdominal pain and nausea; Denies vomiting Genitourinary Genitourinary: Denies change in urinary stream Integumentary Integumentary: Denies jaundice or new lesions Neurologic Neurologic: Denies abnormal gait Psychiatric Psychiatric: Denies anxiety Vital Signs Vital Signs Vital Signs: 03/16/25 08:30 03/16/25 10:30 Temperature 99 F Temperature Source Temporal Pulse Rate 45 L 92 Respiratory Rate 12 20 H Blood Pressure 129/55 H 146/54 H Blood Pressure Mean 79 84 Pulse Ox 96 96 Oxygen Delivery Method Room Air Physical Exam Const oriented x3 and no apparent distress Resp normal respiratory effort GI soft to palpation Palpation: tender Positive for LLQ, RLQ, LUQ and RUQ Extremity normal to inspection Results Lab / Micro Data 03/16/25 09:22 03/16/25 09:22 Labs: Laboratory Results - last 24 hr 03/16/25 09:22: WBC 18.9 H, RBC 4.86, Hgb 14.6, Hct 45.3, MCV 93.2, MCH 30.0, MCHC 32.2, RDW Std Deviation 45.1 H, RDW Coeff of Jonnathan 13.2, Plt Count 182, MPV 11.6, Immature Gran % (Auto) 2.700 H, Neut % (Auto) 93.0 H, Lymph % (Auto) 2.0 L , [place] % (Auto) 1.9, Eos % (Auto) 0.1, Baso % (Auto) 0.3, Absolute Neuts (auto) 17.6 H, Absolute Lymphs (auto) 0.38 L, Nucleated RBC % 0, Sodium 135, Potassium 3.8, Chloride 97 L, Carbon Dioxide 24.0, Anion Gap 14, BUN 24 H, Creatinine 1.10, Est GFR (MDRD) Non-Af 51 L, BUN/Creatinine Ratio 21.5 H, Glucose 68 L, Calcium 9.4, Total Bilirubin 0.92, AST 25, ALT 10, Alkaline Phosphatase 103, Total Protein 7.2, Albumin 3.7, Globulin 3.5, Albumin/Globulin Ratio 1.0, Amylase 28, Lipase 10 L 03/16/ 10:53: Urine Color Yellow, Urine Clarity Clear, Urine pH 6.0, Ur Specific [place] 1.015, Urine Protein 30 H, Urine Glucose (UA) 250 H, Urine Ketones 50 H, Urine Occult Blood 25 H, Urine Nitrite Negative, Urine Bilirubin Negative, Urine Urobilinogen Normal, Ur Leukocyte Esterase Negative Rhythm Strip Rhythm Strip: Sinus Rhythm Rate: 89 Ectopy: None Assessment & Plan Assessment/Plan (1) Bowel perforation: PLAN: The patient had a CT scan that showed a large amount of free air. I am waiting for the official read to tell me if there is any indication as to where the free air is originating. I do not see an obvious source. I discussed with the patient her CT scan and her white count and I recommend immediate surgery. I will perform exploratory laparoscopy for evaluation of the bowel. I also discussed the possibility of having to convert to open or perform bowel resection. I also discussed that if bowel resection is necessary she may need colostomy due to the Plaquenil she is on. I discussed the risks of the procedure such as bleeding, infection, injury to other organs such as bowel, bladder, ureter. Patient understands the risks and is 1 to proceed with emergency surgery. Zoltan Calvin MD Pager: [phone] [address] [place] [address], [address] [place] [address] Office:
[2025-03-16] MEDS: Piperacil/Tazobactam 4.5 GM in 0.9% Normal Saline (100mL MB+) 100 ML IV (11:28)
--- NOTE | 2025-03-16 11:30 | PCM.PRE.AN2 ---
ASA Classification* ASA Classification ASA Classification: 3 and E Assessment & Plan Anesthesia* Anesthesia Assessment Anesthesia Assessment: Discussed sedation and/or anesthesia options, risks, benefits, and alternatives with patient/parents/legal guardian/POA. Questions invited. The patient/parents/legal guardian/POA seems to understand and agrees to proceed with anesthesia plan. Reviewed the physical assessment, medical history, allergy history and patient home medications list prior to surgery/procedure/anesthetic and documented any changes. Performed airway and anesthesia risk assessments. Anesthesia Type Anesthesia Type: General (RSI please - active abdomen ) History Source History Obtained from:: Patient and Chart Anesthesia Focused Assessment* Temperature: 98.5 F Pulse Rate: 95 Blood Pressure: 128/59 Respiratory Rate: 14 Pulse Ox: 99 Oxygen Delivery Method: Room Air Airway Assessment Mouth opens: >3 cm Mallampati Score: III Neck Range of motion (ROM): Full ROM Labs Anesthesia Preop lab: CBC WBC, (4.4-11.0) 18.9 K/mm3 H Today, 09:22 RBC, (4.2-5.4) 4.86 M/mm3 Today, 09:22 Hgb, (12.0-15.0) 14.6 g/dL Today, 09:22 Hct, (37-47) 45.3 % Today, 09:22 Plt Count, (150-450) 182 K/mm3 Today, 09:22 CHEMISTRY Potassium, (3.3-5.1) 3.8 mmol/L Today, 09:22 Sodium, (133-145) 135 mmol/L Today, 09:22 Magnesium, (1.6-2.6) 2.3 mg/dL 05/27/24, 05:07 Phosphorus, (2.5-4.9) 4.0 mg/dL 05/27/24, 05:07 BUN, (4-19) 24 mg/dL H Today, 09:22 Creatinine, (0.70-1.20) 1.10 mg/dL Today, 09:22 Glucose, (70-99) 68 mg/dL L Today, 09:22 POC Glucose, (74-106) 142 mg/dL H 05/26/24, 06:26 TSH, (0.300-4.200) 0.178 uIU/mL L 03/08/25, 09:55 COAG PT, (11.7-14.9) 13.0 SECONDS 10/31/20, 08:51 Pre-Assessment Diagnosis/Proposed Procedure Planned Operative Procedure(s): Ex-lap, see Dr. 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 When Was Last Pacemaker Check QUESTION #4 FULL TEXT: You/Your Family Experience fever (hyperthermia) with Anesthesia Last Oral Intake Last Oral intake: Last Oral Intake NPO since Meds taken in AM with sips of water? Meds patient instructed to take am of surgery PONV PONV - fire support man: PONV - fire support man Female HX of Motion Sickness HX of N/V After Surgery Non-Smoker Duration of Surgery greater than 60 minutes Number of Risk Factors PONV Score Height & Weight Height & Weight: Anesthesia: Height & Weight Height 5 ft 3 in 03/16/25 11:26 Weight: 83.7 kg 03/16/25 11:26 Body Mass Index (BMI) 32.6 03/16/25 11:26 Respiratory Assessment Respiratory Assessment - fire support man: Respiratory Tract Infection Hx - fire support man Hx Respiratory Tract Infection STOP Sleep Apnea STOP Sleep Apnea - fire support man: STOP Sleep Apnea - fire support man Hx Hypertension No 03/16/25 11:26 Hx Sleep Apnea No 03/16/25 11:26 CPAP BIPAP Do you snore loudly (louder No 03/16/25 11:26 than talking or can be heard Do you often feel tired/ No 03/16/25 11:26 fatigued/ sleepy during daytime? Has anyone observed you stop No 03/16/25 11:26 breathing during sleep? STOP Results Negative 03/16/25 11:26 QUESTION #5 FULL TEXT : Do you snore loudly (louder than talking or can be heard through closed doors)? 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 Specify any problems Hx of Preganancy in last 3 Months Nurse Filling Out Transfusion & Questions: Date: Time: Patient unable to answer at this time (ie. confused, unrespo /Reproduction History /Reproductive History - fire support man: /Reproductive Hx- fire support man Hx Now Gestational Age (in weeks): EDC: Hx Hx Para Hx Section SAB Does the father of the baby or his family experience fever w Father of the baby Malignant Hypertension history comment [facility] Medical History Cardiomyopathy Obesity (BMI 30.0-34.9) New onset of congestive heart failure Acute respiratory insufficiency Polymyalgia rheumatica Dyspnea on exertion Rheumatoid arthritis Gout Hypothyroidism Essential hypertension Type 2 diabetes mellitus Home Medications ?Medication ?Instructions ?Recorded ?Last Taken ?Type gabapentin 100 mg capsule 100 mg PO BID nerve pain 04/30/15 05/25/24 History acetaminophen 500 mg tablet 500 mg PO Q6H PRN Pain 10/20/20 Unknown History albuterol sulfate 90 mcg/actuation 1 puff inhalation Q4H PRN 04/16/24 Unknown History aerosol inhaler shortness of breath or wheezing calcium 600 mg (as carbonate)-vit 1 tab PO DAILY supplement 04/16/24 Unknown History D3 20 mcg (800 unit) chewable tablet (Caltrate plus D) hydroxychloroquine 200 mg tablet 200 mg PO BID 04/16/24 05/25/24 History (Plaquenil) aspirin 81 mg tablet,delayed 81 mg PO QDAY 05/08/24 05/25/24 History release (Adult Low Dose Aspirin) allopurinol 100 mg tablet 100 mg PO BID gout 07/23/24 Unknown History fluticasone fur. 200 mcg-umeclid 1 inh inhalation Q24H 07/23/24 Unknown History 62.5 mcg-vilant 25 mcg inhalat.powder (Trelegy Ellipta) dapagliflozin propanediol 10 mg 10 mg PO QAM #90 tabs 10/16/24 Unknown Rx tablet (Farxiga) levothyroxine 112 mcg tablet 112 mcg PO QDAY 11/13/24 Unknown History sacubitril 49 mg-valsartan 51 mg 1 tab PO BID #180 tabs 11/16/24 Unknown Rx tablet (Entresto) carvedilol 6.25 mg tablet 6.25 mg PO BID #180 tabs 02/10/25 Unknown Rx spironolactone 25 mg tablet 25 mg PO DAILY #90 tabs 02/10/25 Unknown Rx Allergy/AdvReac Type Severity Reaction Status Date / Time amoxicillin AdvReac GI upset, Verified 03/16/25 08:31 Nausea and vomiting Family History Mother History of DVT (deep vein thrombosis) Hypertension Father Cancer Lung Sister CAD (coronary artery disease) History of coronary artery bypass surgery Surgical History History of left heart catheterization (LHC) (~11/15/20) H/O right knee surgery History of carpal tunnel surgery History of hysterectomy History of appendectomy Social History household members: none Smoking Status: Never smoker alcohol intake: current details: occasional substance use type: does not use caffeine: Yes Type: coffee Number of servings: 3 and tea Review of Systems (Anesthesia) ROS Narrative System reviewed and no additional complaints, except as documented. Physical Exam Const alert, oriented x3 and average body habitus Resp normal respiratory effort, normal air movement and clear to auscultation bilaterally Cardio regular rate, regular rhythm and no murmurs; Negative for diaphoretic
[2025-03-16] MEDS: 0.9% Normal Saline (1000mL) 800 ML IV (12:44)
[2025-03-16] MEDS: Lactated Ringers 500 ML IV (13:10)
[2025-03-16] MEDS: fentaNYL 100 MCG/2 ML Ampul IV (13:27)
[2025-03-16] MEDS: Lidocaine 1% (5 ml sdv) 5 ML Vial 8 ML IV (13:38)
--- NOTE | 2025-03-16 14:35 | PCM.OPRPT ---
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 Real Estate Consultant: Kassie Wesley Tasks completed by surgical first assistant: Opening & closing Type of Anesthesia: General/Regional RN Documented Start/Stop Times: Operation Date: 03/16/25 12:30 Case Time Into Pre-Op 03/16/25 11:38 Anesthesia Start 03/16/25 12:44 Into Room 03/16/25 12:44 Procedure Start 03/16/25 13:15 Procedure End 03/16/25 14:25 Anesthesia End 03/16/25 14:33 Out of Room 03/16/25 14:33 Procedure Start Time: 13:15 Procedure Stop Time: 14:25 Select all DRAINS/GRAFTS/IMPLANTS that apply: Drains Drain details: TRACEY to bulb suction Estimated Blood Loss: 20 Specimen collected: No Description of surgery: Patient was brought back to the operating room and general anesthesia was induced. An OG was placed as well as a Hawkins catheter. The abdomen was prepped and draped in usual sterile fashion. A midline incision was made superior to the umbilicus and using Visiport technique a 5 mm port was placed into the abdomen. It was insufflated to 15 mmHg. The abdomen was inspected and it appeared that there was inflammation in the left lower quadrant. I was unable to fully evaluate the bowel as it was distended. At this point we converted to laparotomy. The midline incision was elongated inferiorly and deepened to the fascia. The fascia was incised. A wound protector was placed. The small bowel was delivered through the incision and inspected from the ligament of Treitz all the way to the terminal ileum. There did not appear to be any small bowel perforation. The stomach was soft with no inflammation near the duodenum. The left lower quadrant did have some granulation and inflammation tissue this was broken up and the sigmoid colon did appear mildly thickened. I was unable to dissect free the sigmoid colon as it was too scarred in from her hysterectomy. I did not identify the perforation in the sigmoid colon. There was no feculent peritonitis so the decision was made to washout the abdomen and leave a drain. I washed out the abdomen with liters of saline and it was suctioned dry. A 15 Bel[place]an round drain was placed through the right lower quadrant and into the pelvis. It was sutured to the skin using 4-0 nylon. Next the omentum was draped over the bowel and then the fascia was closed in a running fashion from the top and bottom meeting in the middle with #1 PDS suture. The subcutaneous tissue was irrigated and suctioned dry and the skin was stapled closed. Drain was placed to bulb suction. Patient was awoken and taken to PACU with Hawkins in place Surgical Findings: Inflammation in the left lower quadrant Complications Complications: No Admit VTE Documentation VTE Mechan Device Prophylaxis: SCD's
--- NOTE | 2025-03-16 14:40 | PN_ITS ---
Progress Note I was unable to localize the site of the perforation. The most likely site that I could find with the sigmoid colon. I washed out the abdomen and left a drain as there was no feculent or purulent peritonitis. I will keep the patient n.p.o. for the next 48 hours and then repeat a CT scan with oral and IV contrast. Continue antibiotics. Zoltan Calvin MD Pager: [facility] [address] [place] [address] [address] [place] [address] Office:
--- NOTE | 2025-03-16 14:41 | PCM.POST.ANE ---
Anesthesia: Postop Eval I Current Vital Signs Temperature: 97.2 F Pulse Rate: 91 Blood Pressure: 114/51 Respiratory Rate: 16 Pulse Ox: 97 Oxygen Delivery Method: Room Air Assessment Airway patent: Yes Spontaneous unlabored respirations: Yes Mental status: Awake and Calm nausea: No Vomiting: No Anesthesia Complication: No Fluid Hydration Crystalloid volume administer (ml): 1,300 Total IV fluid infused: 1,300 Progress Note Anesthesia document: Postop Eval 1 completed: Yes
--- NOTE | 2025-03-16 14:57 | POSTOPAN2_ITS ---
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.[email or web address] Spontaneous unlabored Yes 03/16/25 14:42 WIRE STRAIGHTENING MACHINE OPERATOR.GDOTT respirations Mental status Awake,Calm 03/16/25 14:42 WIRE STRAIGHTENING MACHINE OPERATOR.GDOTT nausea No 03/16/25 14:42 WIRE STRAIGHTENING MACHINE OPERATOR.GDOTT Vomiting No 03/16/25 14:42 WIRE STRAIGHTENING MACHINE OPERATOR.GDOTT Anesthesia Postop Eval I: Fluid Summary Crystalloid volume administer 1,300 03/16/25 14:42 WIRE STRAIGHTENING MACHINE OPERATOR.GDOTT (ml) Colloids volume administered ( ml) Blood Product volume administered (ml) Total IV fluid infused 1,300 03/16/25 14:42 WIRE STRAIGHTENING MACHINE OPERATOR.GDOTT Anesthesia Postop Eval I: Summary Notes Anesthesia Complication No 03/16/25 14:42 WIRE STRAIGHTENING MACHINE OPERATOR.GDOTT Anesthesia Complication Comment: Post-operative progress note Anesthesia: Postop Eval II Evaluation Mental status: Awake Pain Level: 0 nausea: No Vomiting: No Complications Anesthesia Complication: No
--- NOTE | 2025-03-16 14:57 | PCM.POSTANE2 ---
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.[email or web address] Spontaneous unlabored Yes 03/16/25 14:42 SHOPPING INVESTIGATOR.GDOTT respirations Mental status Awake,Calm 03/16/25 14:42 SHOPPING INVESTIGATOR.GDOTT nausea No 03/16/25 14:42 SHOPPING INVESTIGATOR.GDOTT Vomiting No 03/16/25 14:42 SHOPPING INVESTIGATOR.GDOTT Anesthesia Postop Eval I: Fluid Summary Crystalloid volume administer 1,300 03/16/25 14:42 SHOPPING INVESTIGATOR.GDOTT (ml) Colloids volume administered ( ml) Blood Product volume administered (ml) Total IV fluid infused 1,300 03/16/25 14:42 SHOPPING INVESTIGATOR.GDOTT Anesthesia Postop Eval I: Summary Notes Anesthesia Complication No 03/16/25 14:42 SHOPPING INVESTIGATOR.GDOTT Anesthesia Complication Comment: Post-operative progress note Anesthesia: Postop Eval II Evaluation Mental status: Awake Pain Level: 0 nausea: No Vomiting: No Complications Anesthesia Complication: No
[2025-03-16] MEDS: 0.9% Normal Saline (1000mL) 1,000 ML 100 ML IV (17:19)
[2025-03-16] MEDS: Piperacil/Tazobactam 3.375 GM in 0.9% Normal Saline (50mL MB+) 50 ML IV (21:51)
[2025-03-17 00:44] VITALS: BP 118/75; PULSE 86; RESP 18; TEMP 36.6; O2SAT 95; BMI 32.7
[2025-03-17] MEDS: 0.9% Normal Saline (1000mL) 1,000 ML 100 ML IV ×3 (03:24→21:18)
[2025-03-17 04:44] VITALS: BP 123/55; PULSE 92; RESP 18; TEMP 36.6; O2SAT 96; BMI 32.7
[2025-03-17] MEDS: Piperacil/Tazobactam 3.375 GM in 0.9% Normal Saline (50mL MB+) 50 ML IV ×3 (05:13→21:01)
[2025-03-17 06:54] LABS: Hematocrit 45.4 % (37-47); Hemoglobin 14.1 g/dL (12.0-15.0); Immature Granulocytes Count 0.070 X10^3/uL (0.0-0.0); Mean Corp Hgb Conc 31.1 g/dL (32-36); Mean Corpuscular Volume 94.8 fL (81-99); Mean Platelet Vol. 11.4 fl (6.2-12.0); NRBC Flagged by Analyzer 0 % (0-5); POSITIVE DIFFERENTIAL YES; Platelet Count 189 K/mm3 (150-450); RBC Distribution Width CV 13.4 % (11.6-14.6); RBC Distribution Width SD 47.2 fl (35.1-43.9); Red Blood Count 4.79 M/mm3 (4.2-5.4); White Blood Count 13.3 K/mm3 (4.4-11.0)
[2025-03-17 07:17] LABS: Anion Gap 15 (5-15); BUN 27 mg/dL (4-19); BUN/Creat Ratio 23.9 RATIO (10-20); Calcium,Total 8.4 mg/dL (7.6-11.0); Carbon Dioxide 16.8 mmol/L (21.0-32.0); Chloride 106 mmol/L (98-108); Estimated Creatinine Clearance 39.48 ml/min (50-250); Glucose 66 mg/dL (70-99); Potassium 4.8 mmol/L (3.3-5.1)
--- NOTE | 2025-03-17 07:41 | PN.SURG_ITS ---
Subjective Subjective Patient is still sore over her incision site. She denies nausea or vomiting. Objective Data Objective Data Vital Signs: Vital Signs Temp Pulse Resp BP Pulse Ox O2 Del Method O2 Flow Rate 98 F 92 18 123/55 H 96 Room Air 2 03/17/25 04:44 03/17/25 04:44 03/17/25 04:44 03/17/25 04:44 03/17/25 04:44 03/17/25 04:44 03/16/25 16:50 Oxygen Flow Rate (L/min) 2 Oxygen Delivery Method Room Air Weight: 184 lb 8.43 oz Body Mass Index (BMI) 32.7 Intake & Output: Intake and Output for Last 24 Hours 03/15/25 03/16/25 03/17/25 23:59 23:59 23:59 Intake Total 1100 / 1100 1050 / 1050 Output Total 640 / 640 600 / 600 Balance 460 / 460 450 / 450 Lab / Micro Data 03/17/25 06:25 03/17/25 06:25 Labs: Laboratory Results - last 24 hr 03/16/25 09:22: WBC 18.9 H, RBC 4.86, Hgb 14.6, Hct 45.3, MCV 93.2, MCH 30.0, MCHC 32.2, RDW Std Deviation 45.1 H, RDW Coeff of Jonnathan 13.2, Plt Count 182, MPV 11.6, Immature Gran % (Auto) 2.700 H, Neut % (Auto) 93.0 H, Lymph % (Auto) 2.0 L , [place] % (Auto) 1.9, Eos % (Auto) 0.1, Baso % (Auto) 0.3, Absolute Neuts (auto) 17.6 H, Absolute Lymphs (auto) 0.38 L, Nucleated RBC % 0, Sodium 135, Potassium 3.8, Chloride 97 L, Carbon Dioxide 24.0, Anion Gap 14, BUN 24 H, Creatinine 1.10, Est GFR (MDRD) Non-Af 51 L, BUN/Creatinine Ratio 21.5 H, Glucose 68 L, Calcium 9.4, Total Bilirubin 0.92, AST 25, ALT 10, Alkaline Phosphatase 103, Total Protein 7.2, Albumin 3.7, Globulin 3.5, Albumin/Globulin Ratio 1.0, Amylase 28, Lipase 10 L 03/16/25 10:53: Urine Color Yellow, Urine Clarity Clear, Urine pH 6.0, Ur Specific [place] 1.015, Urine Protein 30 H, Urine Glucose (UA) 250 H, Urine Ketones 50 H, Urine Occult Blood 25 H, Urine Nitrite Negative, Urine Bilirubin Negative, Urine Urobilinogen Normal, Ur Leukocyte Esterase Negative, Urine RBC 0 SEEN, Urine WBC 0 SEEN, Ur Squamous Epith Cells 0 SEEN, Urine Bacteria 0 SEEN, Urine Mucus 0 SEEN 03/17/25 06:25: WBC 13.3 H, RBC 4.79, Hgb 14.1, Hct 45.4, MCV 94.8, MCH 29.4, M CHC 31.1 L, RDW Std Deviation 47.2 H, RDW Coeff of Jonnathan 13.4, Plt Count 189, MPV 11.4, Immature Gran % (Auto) 0.500, Neut % (Auto) 88.6 H, Lymph % (Auto) 4.4 L, [place] % (Auto) 5.0, Eos % (Auto) 1.1, Baso % (Auto) 0.4, Absolute Neuts (auto) 11.8 H, Absolute Lymphs (auto) 0.59 L, Nucleated RBC % 0, Sodium 138, Potassium 4.8, Chloride 106, Carbon Dioxide 16.8 L, Anion Gap 15, BUN 27 H, Creatinine 1.14, Estim Creat Clear Calc 39.48 L, Est GFR (MDRD) Non-Af 49 L, BUN/Creatinine Ratio 23.9 H, Glucose 66 L, Calcium 8.4 Radiography Diagnostic Testing: Radiology Impression Abdomen/Pelvis CT 03/16/25 09:13 IMPRESSION: Extensive pneumoperitoneum consistent with bowel perforation. The exact site of the bowel perforation can not be elicited on this exam. Free fluid in the right pericolic gutter and pelvis. Mild atelectatic changes of the right base. Red Alert: Pneumoperitoneum The critical findings in the findings and impression above were relayed directly by me by telephone to Nain Richardson on 03/16/2025 at 12:49 pm with readback verification. Patient's on its way to the operating room for exploratory laparotomy at the time of report. Reading Location: [facility] Rhythm Strip Rhythm Strip: Sinus Rhythm Rate: 89 Ectopy: None Physical Exam Const oriented x3 and no apparent distress Resp normal respiratory effort GI soft to palpation Inspection: abdominal distention Palpation: tender Assessment & Plan Assessment/Plan (1) Bowel perforation: PLAN: I was unable to identify the site of perforation during surgery. A drain was left in place and the abdomen was washed out. The drain is serosanguineous this morning with no signs of stool. There was no feculent peritonitis during surgery. Of note she is hypoglycemic this morning so I will give her an amp of D50. She asked for ice chips I will give her ice chips and sips. Continue NPO. Wait 48 hours and then repeat a CT scan with oral contrast. Continue antibiotics. Zoltan Calvin MD Pager: [facility] [address] [place] [address], [address] [place] [address] Office:
[2025-03-17 08:00] VITALS: BP 117/56; PULSE 92; RESP 17; TEMP 36.6; O2SAT 95
[2025-03-17 08:30] VITALS: BMI 32.7
--- NOTE | 2025-03-17 10:15 | CASEMGMT ---
RN CM Face to Face with patient for initial transition planning/care coordination assessment. RN CM introduced self and role at [facility]. Patient lying in bed, alert and oriented. Patient willing to participate in assessment and is able to answer all questions appropriately. Care providers, pharmacy, and demographics verified. Strata: 2 PCP: Elena Specialists: Trey lube attendant Preferred Pharmacy: [facility] Insurance: [facility] Prescription Benefit: yes Living Will/HPOA: yes, son Dereck Gomez LNOK: son Living Arrangements: Patient lives alone in a 2 story home with bed and bath on first floor, Transportation: self, son DME/HHC: Patient has shower chair at home. No previous HHC or SNF. Patient wishes to discharge home, denies need for home health at this time. Patient states she has no further needs or concerns at this time. CM to follow for discharge planning needs that may arise. Disposition Plan: TBD, anticipate home with family support or transfer to tertiary facility. Sunni CADE, RN, CM
--- NOTE | 2025-03-17 10:36 | CASEMGMT ---
Tertiary Insurance review for hospitals In-network with?MMO insurance if transfer is recommended is as follows: [facility], [facility], [place], [facility], [facility], [facility], , [place], [facility], and [place]. Erin Murcia, Discharge Planning Asst.
[2025-03-17] MEDS: Pantoprazole Sodium 40 MG in 0.9% Normal Saline (100mL MB+) 100 ML 330 MG IV (11:02)
[2025-03-17 12:30] VITALS: BP 134/58; PULSE 89; RESP 17; TEMP 36.3; O2SAT 96
[2025-03-17] MEDS: 0.9% Saline Lock 10 ML Syringe IV (12:34)
[2025-03-17 12:44] VITALS: BMI 32.7
[2025-03-17 16:23] VITALS: BMI 32.7
[2025-03-17 17:35] VITALS: BP 120/60; PULSE 96; RESP 17; TEMP 36.3; O2SAT 95
[2025-03-17 21:00] VITALS: BP 137/63; PULSE 94; RESP 18; TEMP 36.6; O2SAT 93; BMI 32.7
[2025-03-18 03:37] VITALS: BP 144/78; PULSE 95; RESP 18; TEMP 36.6; O2SAT 94
[2025-03-18] MEDS: Piperacil/Tazobactam 3.375 GM in 0.9% Normal Saline (50mL MB+) 50 ML IV ×3 (05:38→20:30)
[2025-03-18 06:17] LABS: Hematocrit 40.9 % (37-47); Hemoglobin 12.9 g/dL (12.0-15.0); Immature Granulocytes Count 0.070 X10^3/uL (0.0-0.0); Mean Corp Hgb Conc 31.5 g/dL (32-36); Mean Corpuscular Volume 93.8 fL (81-99); Mean Platelet Vol. 11.2 fl (6.2-12.0); NRBC Flagged by Analyzer 0 % (0-5); Platelet Count 202 K/mm3 (150-450); RBC Distribution Width CV 13.7 % (11.6-14.6); RBC Distribution Width SD 47.1 fl (35.1-43.9); Red Blood Count 4.36 M/mm3 (4.2-5.4); White Blood Count 10.2 K/mm3 (4.4-11.0)
[2025-03-18] MEDS: 0.9% Normal Saline (1000mL) 1,000 ML 100 ML IV (06:37)
[2025-03-18 06:42] VITALS: PULSE 90; RESP 14
[2025-03-18] MEDS: Albuterol 2.5 MG/3 ML VIAL.NEB. INHALATION (06:42)
[2025-03-18 07:00] LABS: Anion Gap 13 (5-15); BUN 25 mg/dL (4-19); BUN/Creat Ratio 28.6 RATIO (10-20); Calcium,Total 8.5 mg/dL (7.6-11.0); Carbon Dioxide 18.3 mmol/L (21.0-32.0); Chloride 110 mmol/L (98-108); Estimated Creatinine Clearance 51.14 ml/min (50-250); Glucose 70 mg/dL (70-99); Potassium 3.7 mmol/L (3.3-5.1)
--- NOTE | 2025-03-18 07:50 | PN.SURG_ITS ---
Subjective Subjective Patient seen and examined during AM rounds and then again this afternoon. She initially sitting out of bed in the chair stating that she felt somewhat nauseous. She denied any significant abdominal pain in the morning but began to experience more as the day wore on. She describes significant bloating. She denies any passage of flatus or any feeling of having to use the bathroom. Objective Data Objective Data Vital Signs: Vital Signs Temp Pulse Resp BP Pulse Ox O2 Del Method O2 Flow Rate 97.9 F 90 14 144/78 H 94 Room Air 2 03/18/25 03:37 03/18/25 06:42 03/18/25 06:42 03/18/25 03:37 03/18/25 03:37 03/18/25 03:37 03/16/25 16:50 Oxygen Flow Rate (L/min) 2 Oxygen Delivery Method Room Air Weight: 184 lb 8.43 oz Body Mass Index (BMI) 32.7 Intake & Output: Intake and Output for Last 24 Hours 03/16/25 03/17/25 03/18/25 23:59 23:59 23:59 Intake Total 1100 / 1100 3290.00 / 3290.00 981.67 / 981.67 Output Total 640 / 640 860 / 860 Balance 460 / 460 2430.00 / 2430.00 956.67 / 956.67 Lab / Micro Data 03/18/25 05:45 03/18/25 05:45 Labs: Laboratory Results - last 24 hr 03/17/25 07:38: POC Glucose 64 L 03/17/25 09:11: POC Glucose 155 H 03/18/25 05:45: WBC 10.2, RBC 4.36, Hgb 12.9, Hct 40.9, MCV 93.8, MCH 29.6, MCHC 31.5 L, RDW Std Deviation 47.1 H, RDW Coeff of Jonnathan 13.7, Plt Count 202, MPV 11.2, Immature Gran % (Auto) 0.700, Neut % (Auto) 82.2 H, Lymph % (Auto) 8.2 L, Rich % (Auto) 7.6, Eos % (Auto) 0.7, Baso % (Auto) 0.6, Absolute Neuts (auto) 8.4 H, Absolute Lymphs (auto) 0.83, Nucleated RBC % 0, Sodium 141, Potassium 3.7, Chloride 110 H, Carbon Dioxide 18.3 L, Anion Gap 13, BUN 25 H, Creatinine 0.88, Estim Creat Clear Calc 51.14, Est GFR (MDRD) Non-Af 66, BUN/Creatinine Ratio 28.6 H, Glucose 70, Calcium 8.5 Rhythm Strip Rhythm Strip: Sinus Rhythm Rate: 89 Ectopy: None Physical Exam Const oriented x3 Constitutional Narrative: Mild distress from abdominal distention Resp normal respiratory effort GI GI Narrative: Mildly distended, operative dressings initially intact to removed and there is some crusted blood about patient's umbilicus, otherwise to the incision remains well-approximated with skin ifeanyi. There is no ongoing drainage. Patient has appropriate tenderness to palpation. Patient's right lower quadrant drain site contains just serous drainage. Assessment & Plan Assessment/Plan (1) Bowel perforation: PLAN: Patient is postoperative day 2 from diagnostic laparoscopy converted to exploratory laparotomy with drain placement. Patient is afebrile with normal vital signs. White blood cell count is down trended to normal. The drain left at the time of surgery remains serous. Abdominal exam is overall appropriate. Patient remains intermittently hypoglycemic so I will begin D5W with half NS and 20 of KCl. Continue NPO. CT of the abdomen pelvis was obtained with p.o. and IV contrast but unfortunately the phase was not quite timed right and contrast is yet to enter the colon. I repeated patient's KUB 1 hour later and there is still no contrast in the large bowel. Will plan to wait 2 hours longer and repeat KUB before probably sending patient for CT without IV contrast. Continue antibiotics. Moody Moraes MD General Surgery Endocrine Surgery Pager: [facility] [address] [place] [address], Outpatient [place], [address] [place] [id number] Office: [phone] Charges/Coding Visit Charges Inpatient E&M: 14703 Subs Hosp L2
[2025-03-18 08:15] VITALS: BP 145/69; PULSE 86; RESP 17; TEMP 36.6; O2SAT 97
[2025-03-18] MEDS: 0.9% Saline Lock 10 ML Syringe IV ×7 (08:17→20:31)
--- NOTE | 2025-03-18 11:40 | CT_ITS ---
PROCEDURE: ABDOMEN/PELVIS WITH CONTRAST 03/18/2025 REASON FOR EXAM: EVAL FOR SOURCE OF PNEUMOPERITONEUM S/P SX TECHNIQUE: Procedure Code: [id number] Modality: CT Procedure: ABDOMEN/PELVIS WITH CONTRAST Coronal and Sagittal reconstruction series were provided. CONTRAST: Isovue 300 VOLUME: 96 mL and oral contrast One or more dose reduction techniques were used (e.g., Automated exposure control, adjustment of the mA and/or kV according to patient size, use of iterative reconstruction technique. RADIATION DOSE SUMMARY: CTDlvol: 40 mGy DLP: 1153 mGycm COMPARISON: March 16, 2025 FINDINGS: Lung bases: Subsegmental atelectasis. Scant right pleural fluid. Liver: Normal Gallbladder: Hydropic. No wall thickening or pericholecystic fluid. Tiny high densities dependently likely represent tiny stones and some sludge. No biliary ductal dilation. Spleen: Normal Pancreas: Normal Adrenals: Normal Kidneys: No mass, calculus or collecting system dilation. Symmetric enhancement. Bladder: Normal Reproductive Organs: Hysterectomy. No adnexal mass. Bowel: Patient has undergone midline laparotomy in placement of a surgical drain on the right side. The tip of the drain is extending up towards the left upper quadrant. Stomach is normal caliber and contains some oral contrast medium. No wall thickening or obvious site of perforation seen. Proximal small bowel contains some oral contrast medium and is mildly dilated without any wall thickening. More distal small bowel is normal caliber without obvious site of transition. Some gas is present in nondistended colon. No site of colonic perforation seen. Appendectomy. Lymph nodes: None appear enlarged Vasculature: Atherosclerosis is [id number]-sa-iaprud without aneurysm. Peritoneum / Retroperitoneum: There continues to be significant amount of pneumoperitoneum. Some congestion of the mesentery is seen along with scant fluid in the pericolic gutters in the cul-de-sac that is similar in character and relative volume. Bones: Degenerative changes upper lumbar spine disc spaces and lower lumbar facets. CT/Abdomen/Pelvis WITH Contrast IMPRESSION: Patient has undergone interval laparotomy in placement of a drain. There aston nues to be pneumoperitoneum. Source of the pneumoperitoneum is not identified. Oral contrast medium is seen in the stomac h up to the mid small bowel. Likely ileus is present. Continued surveillance suggested to ensure transit into the colon. Reading Location: [id number]
[2025-03-18 12:05] VITALS: BP 150/69; PULSE 96; RESP 18; TEMP 36.6; O2SAT 95
--- NOTE | 2025-03-18 12:44 | RAD_ITS ---
PROCEDURE: ABDOMEN SINGLE VIEW (PORTABLE) 03/18/2025 REASON FOR EXAM: EVAL FOR TRANSIT OF CONTRAST TO COLON TECHNIQUE: Procedure Code: RADABD_P Modality: DX Procedure: ABDOMEN SINGLE VIEW (PORTABLE) COMPARISON: CT of the same day FINDINGS: Pneumoperitoneum better shown on prior CT done earlier. Bowel gas: Dilute oral contrast medium is seen in the stomach and proximal small bowel. None is seen in the distal small bowel or colon at this time. Calcifications: None Bones: Degenerative changes thoracic and lumbar spine Other: Prior midline laparotomy. Surgical drain entering from the right side terminating at the left upper quadrant. IV contrast material is present in nondistended urinary bladder. RAD/Abdomen Single View (Portable) IMPRESSION: Contrast has not transited into the colon at this time. Ileus versus obstructi on. Continued surveillance suggested. Reading Location: [id number]
[2025-03-18] MEDS: Pantoprazole Sodium 40 MG in 0.9% Normal Saline (100mL MB+) 100 ML 330 MG IV (13:05)
[2025-03-18] MEDS: Potassium Chloride 20 MEQ in Dextrose 5%-Water (1000mL Bag) 1,000 ML 75 MEQ IV (13:23)
--- NOTE | 2025-03-18 14:44 | RAD_ITS ---
PROCEDURE: ABDOMEN SINGLE VIEW (PORTABLE) 03/18/2025 REASON FOR EXAM: F/U CONTRAST TECHNIQUE: Procedure Code: RADABD_P Modality: DX Procedure: ABDOMEN SINGLE VIEW (PORTABLE) COMPARISON: Earlier same day 03/18/2025. FINDINGS: Persistent pneumoperitoneum, better seen on CT. Status post laparotomy with a surgical drain coursing across the lower abdomen, and midline abdominal skin ifeanyi. No substantial interval progression of enteric contrast within proximal-mid small bowel loops in the central abdomen. No oral contrast is seen within the colon. Similar gaseous distention of multiple small bowel loops and colon, suggestive of generalized ileus. Excreted IV contrast in the bladder. Multilevel degenerative changes of the spine. Mild bilateral hip arthrosis. RAD/Abdomen Single View (Portable) IMPRESSION: No significant interval change from prior exam. Details above. Reading Location: [id number]
[2025-03-18] MEDS: LEVOTHYROXINE SODIUM 100 MCG VIAL 75 MCG IV (15:18)
[2025-03-18 15:27] VITALS: BP 141/66; PULSE 89; RESP 18; TEMP 36.4; O2SAT 96
--- NOTE | 2025-03-18 17:34 | RAD_ITS ---
PROCEDURE: ABDOMEN SINGLE VIEW 03/18/2025 REASON FOR EXAM: F/U CONTRAST TECHNIQUE: Procedure Code: RADABD Modality: DX Procedure: ABDOMEN SINGLE VIEW COMPARISON: Radiograph from the same day FINDINGS: Persistent pneumoperitoneum is present best seen in the right upper quadrant. Similar gas-filled distended loops of bowel throughout with gas noted to the rectum. Laparotomy ifeanyi are noted over the inferior abdomen. There is likely contrast noted in the proximal small bowel. The appearance is very similar to the previous study. There is contrast noted in the urinary bladder. Osseous structures are similar. RAD/Abdomen Single View IMPRESSION: Very similar appearance to the previous study. Continued radiographic follow-u p is recommended. Reading Location: [facility]
[2025-03-18 19:57] VITALS: BP 144/63; PULSE 91; RESP 22; TEMP 36.6; O2SAT 95
[2025-03-18] MEDS: HYDROmorphone 0.5 MG/0.5 ML SYRINGE IV (20:03)
[2025-03-19 01:28] VITALS: BP 152/74; PULSE 92; RESP 22; TEMP 36.5; O2SAT 96
[2025-03-19] MEDS: 0.9% Saline Lock 10 ML Syringe IV ×4 (01:43→19:52)
[2025-03-19] MEDS: HYDROmorphone 0.5 MG/0.5 ML SYRINGE IV ×4 (01:43→19:52)
[2025-03-19 02:23] VITALS: PULSE 41; RESP 12
[2025-03-19] MEDS: Albuterol 2.5 MG/3 ML VIAL.NEB. INHALATION (02:23)
[2025-03-19] MEDS: Potassium Chloride 20 MEQ in Dextrose 5%-Water (1000mL Bag) 1,000 ML 75 MEQ IV ×2 (04:20→19:52)
[2025-03-19] MEDS: Piperacil/Tazobactam 3.375 GM in 0.9% Normal Saline (50mL MB+) 50 ML IV ×3 (05:12→22:24)
[2025-03-19 05:16] VITALS: BP 122/44; PULSE 52; RESP 16; TEMP 36.4; O2SAT 94
[2025-03-19 05:42] LABS: Hematocrit 40.4 % (37-47); Hemoglobin 13.0 g/dL (12.0-15.0); Immature Granulocytes Count 0.120 X10^3/uL (0.0-0.0); Mean Corp Hgb Conc 32.2 g/dL (32-36); Mean Corpuscular Volume 92.0 fL (81-99); Mean Platelet Vol. 11.0 fl (6.2-12.0); NRBC Flagged by Analyzer 0 % (0-5); Platelet Count 224 K/mm3 (150-450); RBC Distribution Width CV 13.8 % (11.6-14.6); RBC Distribution Width SD 46.9 fl (35.1-43.9); Red Blood Count 4.39 M/mm3 (4.2-5.4); White Blood Count 7.8 K/mm3 (4.4-11.0)
--- NOTE | 2025-03-19 05:50 | RAD_ITS ---
PROCEDURE: ABDOMEN SINGLE VIEW 03/19/2025 REASON FOR EXAM: ABD PAIN TECHNIQUE: Procedure Code: RADABD Modality: DX Procedure: ABDOMEN SINGLE VIEW COMPARISON: 03/18/2025. FINDINGS: Moderate gaseous distention of the small and large bowels, probably ileus. Contrast is noted in the colon on the current exam. Unchanged diffuse spondylosis. Pneumoperitoneum is again noted. Normal visualized lung bases. There is no demonstrated free abdominal air. Normal visualized liver. Normal visualized spleen. Normal visualized kidneys. The soft tissue structures of the pelvis are unremarkable. Contrast is noted in the bladder. RAD/Abdomen Single View IMPRESSION: Moderate gaseous distention of the small and large bowels. Contrast is noted in the colon on the current exam. Unchanged diffuse spondylosis. Pneumoperitoneum is again noted. Contrast is noted in the bladder. Reading Location: [facility]
[2025-03-19 06:11] LABS: Anion Gap 11 (5-15); BUN 18 mg/dL (4-19); BUN/Creat Ratio 19.6 RATIO (10-20); Calcium,Total 8.2 mg/dL (7.6-11.0); Carbon Dioxide 18.5 mmol/L (21.0-32.0); Chloride 106 mmol/L (98-108); Estimated Creatinine Clearance 50.57 ml/min (50-250); Glucose 107 mg/dL (70-99); Potassium 3.6 mmol/L (3.3-5.1)
--- NOTE | 2025-03-19 08:43 | PCM.PN.SRG ---
Subjective Subjective Patient seen and examined during AM rounds. She is found sitting out of bed in the chair. She reports that she has passed flatus. She states this is translated into improved abdominal comfort and she denies any present nausea. Objective Data Objective Data Vital Signs: Vital Signs Temp Pulse Resp BP Pulse Ox O2 Del Method O2 Flow Rate 97.5 F L 52 L 16 122/44 H 94 Room Air 2 03/19/25 05:16 03/19/25 05:16 03/19/25 05:16 03/19/25 05:16 03/19/25 05:16 03/19/25 05:16 03/16/25 16:50 Oxygen Flow Rate (L/min) 2 Oxygen Delivery Method Room Air Weight: 184 lb 8.43 oz Body Mass Index (BMI) 32.7 Intake & Output: Intake and Output for Last 24 Hours 03/17/25 03/18/25 03/19/25 23:59 23:59 23:59 Intake Total 3290.00 / 3290.00 1916.67 / 1916.67 1075 / 1075 Output Total 860 / 860 35 / 35 5 / 5 Balance 2430.00 / 2430.00 1881.67 / 1881.67 1070 / 1070 Lab / Micro Data 03/19/25 04:30 03/19/25 04:30 Labs: Laboratory Results - last 24 hr 03/18/25 12:24: POC Glucose 50 L 03/18/25 12:45: POC Glucose 113 H 03/19/25 04:30: WBC 7.8, RBC 4.39, Hgb 13.0, Hct 40.4, MCV 92.0, MCH 29.6, MCHC 32.2, RDW Std Deviation 46.9 H, RDW Coeff of Jonnathan 13.8, Plt Count 224, MPV 11.0, Immature Gran % (Auto) 1.500 H, Neut % (Auto) 71.3 H, Lymph % (Auto) 12.8 L, Quay % (Auto) 10.1 H, Eos % (Auto) 3.8, Baso % (Auto) 0.5, Absolute Neuts (auto) 5.6, Absolute Lymphs (auto) 1.00, Nucleated RBC % 0, Sodium 135, Potassium 3.6, Chloride 106, Carbon Dioxide 18.5 L, Anion Gap 11, BUN 18, Creatinine 0.89, Estim Creat Clear Calc 50.57, Est GFR (MDRD) Non-Af 65, BUN/Creatinine Ratio 19.6, Glucose 107 H, Calcium 8.2 Radiography Diagnostic Testing: Radiology Impression Abdomen/Pelvis CT 03/18/25 11:40 IMPRESSION: Patient has undergone interval laparotomy in placement of a drain. There continues to be pneumoperitoneum. Source of the pneumoperitoneum is not identified. Oral contrast medium is seen in the stomach up to the mid small bowel. Likely ileus is present. Continued surveillance suggested to ensure transit into the colon. Reading Location: [id number] KUB X-Ray 03/18/25 12:44 IMPRESSION: Contrast has not transited into the colon at this time. Ileus versus obstruction. Continued surveillance suggested. Reading Location: [facility] KUB X-Ray 03/18/25 14:44 IMPRESSION: No significant interval change from prior exam. Details above. Reading Location: [id number] K[facility] X-Ray 03/18/25 17:34 IMPRESSION: Very similar appearance to the previous study. Continued radiographic follow-up is recommended. Reading Location[facility] 03/19/25 05:50 IMPRESSION: Moderate gaseous distention of the small and large bowels. Contrast is noted in the colon on the current exam. Unchanged diffuse spondylosis. Pneumoperitoneum is again noted. Contrast is noted in the bladder. Reading Location[facility] Rhythm Strip Rhythm Strip: Sinus Rhythm Rate: 89 Ectopy: None Physical Exam Const oriented x3 and no apparent distress Resp normal respiratory effort GI GI Narrative: Minimally distended, laparotomy incision with slight crusted blood around the umbilicus otherwise remains well-approximated skin ifeanyi, nonerythematous, nondraining. Right lower quadrant drain with serous output. Soft and appropriately tender to palpation about incision. Assessment & Plan Assessment/Plan (1) Bowel perforation: PLAN: Patient is postoperative day 3 from diagnostic laparoscopy converted to exploratory laparotomy with drain placement. Patient remains afebrile with normal vital signs. White blood cell count once again normal. The drain left at the time of surgery remains serous. Abdominal exam is overall appropriate with tenderness only about laparotomy incision. Patient hypoglycemia appears resolved since beginning continuous infusion of D5W with half NS and 20 of KCl yesterday. Continue NPO. CT of the abdomen pelvis was obtained with p.o. and IV contrast but unfortunately the phase was not quite timed right and contrast is yet to enter the colon. I repeated patient's KUB at 3 separate time intervals by several hours and contrast had yet to enter the colon. This morning KUB shows contrast within the ascending colon and patient is reporting return of bowel function. Still, optimal evaluation would time the contrast in the sigmoid segment. Have discussed with Dr. Calvin and will plan to perform repeat CT imaging of the abdomen pelvis with IV contrast and per rectal contrast to try to optimize diagnostic value of the study. Imaging pending. Continue antibiotics. Family updated at bedside. Continue inpatient stay. Moody Moraes MD General Surgery Endocrine Surgery Pager: [facility] [address] [place] [address] [place] [address] Office: [phone] Charges/Coding Visit Charges Inpatient E&M: 95323 [facility] Hosp L2
[2025-03-19 09:00] VITALS: BP 143/56; PULSE 72; RESP 16; TEMP 36.4; O2SAT 98
--- NOTE | 2025-03-19 09:39 | CT_ITS ---
PROCEDURE: ABDOMEN/PELVIS WITH CONTRAST 03/19/2025 REASON FOR EXAM: F/U PNEUMOPERITONEUM/CONCERN FOR COLON SOURCE TECHNIQUE: Procedure Code: CTABDPELW Modality: CT Procedure: ABDOMEN/PELVIS WITH CONTRAST Coronal and Sagittal reconstruction series were provided. CONTRAST: Isovue-300 VOLUME: 97 mL One or more dose reduction techniques were used (e.g., Automated exposure control, adjustment of the mA and/or kV according to patient size, use of iterative reconstruction technique. RADIATION DOSE SUMMARY: CTDlvol: 34 mGy DLP: 1239 mGycm COMPARISON: March 18, 2025, March 16, 2025 FINDINGS: Lung bases: Subsegmental atelectasis right lung base with scant pleural fluid unchanged. Liver: Normal Gallbladder: Mildly hydropic. Punctate calculi better shown on prior exam but also seen on image 46. Sludge. No biliary ductal dilation. Spleen: Normal Pancreas: Normal Adrenals: Normal Kidneys: No mass, calculus or collecting system dilation. Symmetric enhancement. Bladder: Contrast material from prior CT is present within the urinary bladder. No bladder distention. No bladder wall thickening. Reproductive Organs: Hysterectomy. No adnexal mass. Bowel: Once again, the patient has undergone midline laparotomy and placement of a surgical drain on the right side. Review of the news assignment editor image shows no contrast material in the drainage tubing or reservoir/grenade. The position of the drain is unchanged. Oral contrast medium has transited from the stomach. The stomach appears normal. The density of the small bowel contrast is decreased and some of the contrast material has transited into the mildly dilated jejunum and nondilated ileum. Additionally, contrast has extended into the colon excluding complete mechanical obstruction. Colon appears unremarkable with contrast material to the rectum. No source of perforation is seen. Rectal drainage catheter is present. Contents of the colon are fluid suggesting a diarrheal state. Appendix: Appendectomy Lymph nodes: None appear enlarged Vasculature: [id number] atherosclerosis without aneurysm. Peritoneum / Retroperitoneum: There continues to be a significant amount of pneumoperitoneum. There continues to be some congestion of the small bowel mesentery with scant fluid along the pericolic gutters and in the cul-de-sac.. This is similar in character and volume. No high-density contrast material is seen within the abdominal contents. Bones: Degenerative changes upper lumbar spine disc spaces and lower lumbar facets. CT/Abdomen/Pelvis WITH Contrast IMPRESSION: 1. Continued pneumoperitoneum. Source of pneumoperitoneum not seen. No contr ast within the peritoneum or in the drain. 2. Contrast has transited through the bowel and excludes obstruction. Likely ileus is present. Diarrheal state. Reading Location: [id number]
[2025-03-19] MEDS: Pantoprazole Sodium 40 MG in 0.9% Normal Saline (100mL MB+) 100 ML 330 MG IV (11:00)
[2025-03-19] MEDS: LEVOTHYROXINE SODIUM 100 MCG VIAL 75 MCG IV (11:29)
[2025-03-19 15:03] VITALS: BP 130/48; PULSE 68; RESP 16; TEMP 36.5; O2SAT 98
[2025-03-19 22:24] VITALS: BP 118/55; PULSE 66; RESP 18; TEMP 36.6; O2SAT 97
[2025-03-20 02:00] VITALS: BP 142/78; PULSE 86; RESP 20; TEMP 36.9; O2SAT 96
[2025-03-20] MEDS: HYDROmorphone 0.5 MG/0.5 ML SYRINGE IV ×2 (02:16→18:03)
--- NOTE | 2025-03-20 02:33 | NURSING ---
ambulated in hallway w/pt. significant amount of air released through burping and flatulence. upon returning to bed, pt's heart rate noted to be 41-45 consistently. pt states hr runs low but not that low. returned to 70s-80s after a short time. tele applied for ongoing monitoring.
--- NOTE | 2025-03-20 02:56 | EKG12_ITS ---
Test Reason : ARRHYTHMIA Blood Pressure : */* mmHG Vent. Rate : 80 BPM Atrial Rate : 80 BPM P-R Int : 158 ms QRS Dur : 100 ms QT Int : 406 ms P-R-T Axes : 64 -7 50 degrees QTcB Int : 468 ms Sinus rhythm with frequent Premature ventricular complexes Nonspecific ST abnormality Abnormal ECG When compared with ECG of 16-Mar-2025 09:30, No significant change was found Confirmed by Moody Mendiola ([id number]), general expeditor NERIS CHAVIS ([id number]) on 03/22/2025 8:57:27 AM Referred By: JAZZY Confirmed By: Moody Mendiola
--- NOTE | 2025-03-20 07:05 | PCM.CONS.GEN ---
Assessment & Plan Assessment/Plan (1) Bigeminy: (2) Nonischemic cardiomyopathy: (3) Disorder of electrolytes: (4) Bowel perforation: PLAN: Plan 79-year-old female is admitted to the hospital with bowel perforation, underwent ex laparotomy with drain placement on 03/16. She has history of nonischemic cardiomyopathy on guideline directed medical therapy that includes beta-katlin, because she has been n.p.o. she has not received any of her medications including the beta-katlin. Bigeminy and multiple PVCs: Minimally symptomatic. Expected from beta-katlin withdrawal and her underlying cardiomyopathy, rebound tachy-arrhythmias can happen. No history of CAD so no risk of rebound angina/ischemia. EF improved to 40% as of October so she did not require an implantable defibrillator PLAN: If remains n.p.o. then small dose of IV metoprolol can be used. I ordered 1 dose to see how she tolerates it. As soon as she can take by mouth please resume Coreg Cardiomyopathy: Compensated. No need for diuresis. Safe to hold Farxiga, Entresto and Aldactone if NPO. Electrolytes: Mild hypokalemia, on IV KCl continuous replacement. Bicarbonate 18.5 probably lower GI losses. For repletion of GI losses, Ringer lactate with extra as needed potassium can be used Bowel perforation: Managed by general surgery HPI Consult Data Date of Consult: 03/20/25 HPI Narrative Reason for Consultation: Tachyarrhythmias HPI Narrative: SHIRA CHEW, is a 79 F who presents with bone perforation underwent diagnostic laparoscopy converted to exploratory laparotomy with drain placement on 03/16. 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 She is currently on GDMT that include Coreg, Farxiga, Entresto, Aldactone. She is still n.p.o. since admission and has not received any of her oral home medications. Last night she was walking with a nurse, after she went back to her bed her pulse rate was 40, on telemetry she had a normal heart rate blood she had multiple PVCs and bigeminy. Her heart rate has never been below 60 on the monitor suggesting that the multiple PVCs were not measured as pulses by the sphygmomanometer which is expected. Patient has multiple reasons to develop bigeminy and PVCs, the biggest reason will be rebound tachy- arrhythmias from not taking beta-katlin as she is n.p.o., other etiologies can be electrolytes like low potassium and the mild acidosis she has. No magnesium level. Patient seen at bedside. She was lying supine comfortably without orthopnea. On room air. No edema on exam and no crackles in her chest auscultation. She said that she felt short winded when she walked with her nurse which resolved at rest [facility] Medical History Cardiomyopathy Obesity (BMI 30.0-34.9) New onset of congestive heart failure Acute respiratory insufficiency Polymyalgia rheumatica Dyspnea on exertion Rheumatoid arthritis Gout Hypothyroidism Essential hypertension Type 2 diabetes mellitus Home Medications ?Medication ?Instructions ?Recorded ?Last Taken ?Type gabapentin 100 mg capsule 100 mg PO BID nerve pain 04/30/15 05/25/24 History acetaminophen 500 mg tablet 500 mg PO Q6H PRN Pain 10/20/20 Unknown History albuterol sulfate 90 mcg/actuation 1 puff inhalation Q4H PRN 04/16/24 Unknown History aerosol inhaler shortness of breath or wheezing calcium 600 mg (as carbonate)-vit 1 tab PO DAILY supplement 04/16/24 Unknown History D3 20 mcg (800 unit) chewable tablet (Caltrate plus D) hydroxychloroquine 200 mg tablet 200 mg PO BID 04/16/24 05/25/24 History (Plaquenil) aspirin 81 mg tablet,delayed 81 mg PO QDAY 05/08/24 05/25/24 History release (Adult Low Dose Aspirin) allopurinol 100 mg tablet 100 mg PO BID gout 07/23/24 Unknown History fluticasone fur. 200 mcg-umeclid 1 inh inhalation Q24H asthma 07/23/24 Unknown History 62.5 mcg-vilant 25 mcg inhalat.powder (Trelegy Ellipta) dapagliflozin propanediol 10 mg 10 mg PO QAM heart #90 tabs 10/16/24 03/16/25 09:00 Rx tablet (Farxiga) levothyroxine 112 mcg tablet 112 mcg PO QDAY thyroid 11/13/24 03/16/25 06:00 History sacubitril 49 mg-valsartan 51 mg 1 tab PO BID #180 tabs 11/16/24 Unknown Rx tablet (Entresto) carvedilol 6.25 mg tablet 6.25 mg PO BID #180 tabs 02/10/25 Unknown Rx spironolactone 25 mg tablet 25 mg PO DAILY CHF #90 tabs 02/10/25 Unknown Rx multivitamin (Daily Multi-Vitamin 1 tab PO DAILY supplement 03/16/25 Unknown History tablet) Allergy/AdvReac Type Severity Reaction Status Date / Time amoxicillin AdvReac GI upset, Verified 03/16/25 08:31 Nausea and vomiting Family History Mother History of DVT (deep vein thrombosis) Hypertension Father Cancer Lung Sister CAD (coronary artery disease) History of coronary artery bypass surgery Surgical History History of left heart catheterization (LHC) (~11/15/20) H/O right knee surgery History of carpal tunnel surgery History of hysterectomy History of appendectomy Social History household members: none Smoking Status: Never smoker alcohol intake: current details: occasional substance use type: does not use caffeine: Yes Type: coffee Number of servings: 3 and tea ROS Constitutional Constitutional: Denies fatigue or malaise Eyes Eyes: Denies change in eye color Cardiovascular Cardiovascular: Denies chest pain, dyspnea on exertion or edema Respiratory/Chest Respiratory/Chest: Denies cough or hemoptysis Gastrointestinal Gastrointestinal: Reports abdominal pain Musculoskeletal Musculoskeletal: Denies arthralgias Psychiatric Psychiatric: Denies anxiety Physical Exam Const alert and oriented x3 HEENT normocephalic and head/scalp atraumatic Resp normal respiratory effort and clear to auscultation bilaterally Cardio Rate: regular rate Rhythm: abnormal rhythm ectopic beats GI GI Narrative: Abdomen shows postoperative changes, right-sided drain and appropriate tenderness around surgical site Neuro oriented x3 and moves all extremities Lab / Micro Data 03/19/25 04:30 03/19/25 04:30 Rhythm Strip Rhythm Strip: Sinus Rhythm Rate: 89 Ectopy: None Imaging Radiology Impression Abdomen/Pelvis CT 03/19/25 09:39 IMPRESSION: 1. Continued pneumoperitoneum. Source of pneumoperitoneum not seen. No contrast within the peritoneum or in the drain. 2. Contrast has transited through the bowel and excludes obstruction. Likely ileus is present. Diarrheal state. Reading Location: [id number] Charges/Coding Visit Charges Office Visits / Consults: 71466 OV L5 Est 40min
[2025-03-20] MEDS: Piperacil/Tazobactam 3.375 GM in 0.9% Normal Saline (50mL MB+) 50 ML IV ×3 (07:45→22:45)
[2025-03-20 08:00] VITALS: BP 138/58; PULSE 74; RESP 18; TEMP 36.8; O2SAT 96
[2025-03-20 08:12] LABS: Magnesium 2.3 mg/dL (1.5-2.2)
[2025-03-20 09:31] LABS: Anion Gap 13 (5-15); BUN 12 mg/dL (4-19); BUN/Creat Ratio 13.2 RATIO (10-20); Calcium,Total 8.4 mg/dL (7.6-11.0); Carbon Dioxide 16.8 mmol/L (21.0-32.0); Chloride 103 mmol/L (98-108); Estimated Creatinine Clearance 51.14 ml/min (50-250); Glucose 138 mg/dL (70-99); Potassium 4.1 mmol/L (3.3-5.1)
--- NOTE | 2025-03-20 09:33 | RAD_ITS ---
PROCEDURE: ABDOMEN SINGLE VIEW (PORTABLE) 03/20/2025 REASON FOR EXAM: F/U BOWEL GAS TECHNIQUE: Procedure Code: RADABD_P Modality: DX Procedure: ABDOMEN SINGLE VIEW (PORTABLE) COMPARISON: Abdominal radiograph 03/19/2024 FINDINGS: Redemonstration of air-filled colon which appears top-normal in caliber. Unchanged contrast in the right colon. Persistent pneumoperitoneum. Degenerative changes of the osseous structures. Residual contrast in the urinary bladder. Surgical clips overlie the lower abdomen. RAD/Abdomen Single View (Portable) IMPRESSION: Redemonstrated air-filled colon top-normal in caliber. No other significant ch anges. Reading Location: [facility]
[2025-03-20 10:05] LABS: Hematocrit 44.3 % (37-47); Hemoglobin 14.4 g/dL (12.0-15.0); Immature Granulocytes Count 0.240 X10^3/uL (0.0-0.0); Mean Corp Hgb Conc 32.5 g/dL (32-36); Mean Corpuscular Volume 92.5 fL (81-99); Mean Platelet Vol. 11.1 fl (6.2-12.0); NRBC Flagged by Analyzer 0 % (0-5); Platelet Count 260 K/mm3 (150-450); RBC Distribution Width CV 13.9 % (11.6-14.6); RBC Distribution Width SD 47.5 fl (35.1-43.9); Red Blood Count 4.79 M/mm3 (4.2-5.4); White Blood Count 8.0 K/mm3 (4.4-11.0)
--- NOTE | 2025-03-20 10:29 | PN.SURG_ITS ---
Subjective Subjective Patient seen and examined during AM rounds. She was found resting out of bed in the chair. She states she is somewhat nauseous this morning after having some clear liquids. She does report ongoing passage of flatus. She complains of persistent bloating and gas pains. Overnight nursing contacted to inform me that patient became somewhat bradycardic and demonstrated bigeminy. Hospitalist service was consulted and recommended check of electrolytes as well as restarting home medications when able or alternatively begin a low-dose of IV beta-katlin. According to nursing the beta-katlin was never administered as patient demonstrated spontaneous improvements. Objective Data Objective Data Vital Signs: Vital Signs Temp Pulse Resp BP Pulse Ox O2 Del Method O2 Flow Rate 98.3 F 74 18 138/58 H 96 Room Air 2 03/20/25 08:00 03/20/25 08:00 03/20/25 08:00 03/20/25 08:00 03/20/25 08:00 03/20/25 08:00 03/16/25 16:50 Oxygen Flow Rate (L/min) 2 Oxygen Delivery Method Room Air Weight: 184 lb 8.43 oz Body Mass Index (BMI) 32.7 Intake & Output: Intake and Output for Last 24 Hours 03/18/25 03/19/25 03/20/25 23:59 23:59 23:59 Intake Total 1916.67 / 1916.67 2285.00 / 2585.00 350 / 350 Output Total 35 / 35 18 / 18 Balance 1881.67 / 1881.67 2267.00 / 2567.00 350 / 350 Lab / Micro Data 03/20/25 09:27 03/20/25 07:30 Labs: Laboratory Results - last 24 hr 03/20/25 07:30: Sodium 133, Potassium 4.1, Chloride 103, Carbon Dioxide 16.8 L, Anion Gap 13, BUN 12, Creatinine 0.88, Estim Creat Clear Calc 51.14, Est GFR (MDRD) Non-Af 67, BUN/Creatinine Ratio 13.2, Glucose 138 H, Calcium 8.4, M agnesium 2.3 H 03/20/25 09:27: WBC 8.0, RBC 4.79, Hgb 14.4, Hct 44.3, MCV 92.5, MCH 30.1, MCHC 32.5, RDW Std Deviation 47.5 H, RDW Coeff of Jonnathan 13.9, Plt Count 260, MPV 11.1, Immature Gran % (Auto) 3.000 H, Neut % (Auto) 65.5, Lymph % (Auto) 15.0 L, Meagher % (Auto) 9.4, Eos % (Auto) 6.5 H, Baso % (Auto) 0.6, Absolute Neuts (auto) 5.2, Absolute Lymphs (auto) 1.20, Nucleated RBC % 0 Radiography Diagnostic Testing: Radiology Impression Abdomen/Pelvis CT 03/19/25 09:39 IMPRESSION: 1. Continued pneumoperitoneum. Source of pneumoperitoneum not seen. No contrast within the peritoneum or in the drain. 2. Contrast has transited through the bowel and excludes obstruction. Likely ileus is present. Diarrheal state. Reading Location: [facility] Rhythm Strip Rhythm Strip: Sinus Rhythm Rate: 89 Ectopy: None Physical Exam Const Constitutional Narrative: Anxious and somewhat pale GI GI Narrative: Mildly distended, appropriate appearance to laparotomy incision which remains well-approximated with skin ifeanyi, right lower quadrant drain site with serous output. Mildly tender to palpation but not particularly tympanic with percussion. Assessment & Plan Assessment/Plan (1) Bowel perforation: PLAN: Patient is postoperative day 4 from diagnostic laparoscopy converted to exploratory laparotomy with drain placement. Patient remains afebrile with normal vital signs (both recent heart rates and blood pressures are within normal limits). White blood cell count once again normal but I have noticed a day over day increase in patient's immature granulocytes with unknown significance. The drain left at the time of surgery remains serous. Abdominal exam is overall appropriate with tenderness only about laparotomy incision. Patient tolerating limited volume of clear liquids. As noted previously CT imaging of the abdomen pelvis was completed and there was no contrast extravasation so, as above, diet was resumed. This morning KUB shows predominantly gas-filled loops of colon with air in the rectum. Will try to decrease narcotic through some use of Toradol as well as p.o. meds. Continue antibiotics. Neuro: Limit use of Dilaudid, add Toradol x 1 and monitor for patient's tolerance, add acetaminophen as needed, add back patient's home gabapentin Pulm/CV: Continue use of incentive spirometer, continue monitoring of heart rate, patient's home carvedilol and Aldactone resumed. FEN/GI: Patient's electrolytes largely within normal limits, however, her bicarb is slightly low. Hopefully returning to a diet will improve this spontaneously but may have to transition to LR. Patient borderline hyponatremic so I have resumed low rate of normal saline for now. : No present issues, patient reports voiding spontaneously Heme/ID: Hemoglobin stable, white blood cell count remains within normal limits, slight increase of immature granulocytes as noted above, continue Zosyn empirically and monitoring of operative drain Endo: Patient mildly hyperglycemic this a.m. with resumption of diet, will discontinue IV fluids with continuous dextrose and continue to hold other diabetic medications until tolerating diet more substantially. Proph: Continue frequent ambulation, continue Protonix, add subcu heparin 3 times daily Dispo: Continue inpatient stay Moody Moraes MD General Surgery Endocrine Surgery Pager: [facility] [address] [place] [address], [facility], [address] [place] [id number] Office: [phone] Charges/Coding Visit Charges Inpatient E&M: 11434 Subs Hosp L2
[2025-03-20] MEDS: 0.9% Saline Lock 10 ML Syringe IV ×2 (10:49→18:02)
[2025-03-20] MEDS: Pantoprazole Sodium 40 MG in 0.9% Normal Saline (100mL MB+) 100 ML 330 MG IV (10:53)
[2025-03-20] MEDS: 0.9% Normal Saline (1000mL) 1,000 ML 50 ML IV (10:57)
[2025-03-20] MEDS: Albuterol 2.5 MG/3 ML VIAL.NEB. INHALATION ×2 (11:49→23:07)
[2025-03-20 11:50] VITALS: PULSE 90; RESP 18
[2025-03-20 14:00] VITALS: BP 142/61; PULSE 85; RESP 18; TEMP 36.9; O2SAT 96
--- NOTE | 2025-03-20 17:43 | PCM.PN.BLA ---
Progress Note Pt seen and evaluated for PM rounds. Overall nursing provided an optimistic report with increased flatus and pt reporting small BM with increased tolerance of diet as well. However, on repeating her abdominal exam I found her drain output had become feculent in character. I discussed this finding with patient and her family as well as Dr. Calvin. We have offered to proceed with diverting colostomy tomorrow vs transfer to another facility. After gathering in patient's room, she and her family have chosen to go forward with reoperation and diverting colostomy. Questions were answered to their satisfaction and the case was booked with [facility] while anesthesia was also given notice. Pt now returned to NPO status with plans for OR at 0800 tomorrow.
[2025-03-20 20:00] VITALS: BP 101/47; PULSE 88; RESP 18; TEMP 36.7; O2SAT 95
[2025-03-20] MEDS: Heparin Injection (Vial) 5,000 UNIT/ML VIAL 5000 UNIT SC (22:44)
[2025-03-20 23:07] VITALS: PULSE 82; RESP 18
[2025-03-21] VITALS (33 sets, daily range): BP systolic 79–134; BP diastolic 40–66; PULSE 73–97; RESP 14–30; TEMP 36.3–37.2; O2SAT 94–100; BMI 32.7
[2025-03-21 05:09] LABS: Hematocrit 37.4 % (37-47); Hemoglobin 12.4 g/dL (12.0-15.0); Immature Granulocytes Count 0.250 X10^3/uL (0.0-0.0); Mean Corp Hgb Conc 33.2 g/dL (32-36); Mean Corpuscular Volume 90.8 fL (81-99); Mean Platelet Vol. 10.9 fl (6.2-12.0); NRBC Flagged by Analyzer 0 % (0-5); Platelet Count 286 K/mm3 (150-450); RBC Distribution Width CV 13.8 % (11.6-14.6); RBC Distribution Width SD 45.9 fl (35.1-43.9); Red Blood Count 4.12 M/mm3 (4.2-5.4); White Blood Count 11.7 K/mm3 (4.4-11.0)
[2025-03-21 05:31] LABS: Anion Gap 12 (5-15); BUN 10 mg/dL (4-19); BUN/Creat Ratio 12.0 RATIO (10-20); Calcium,Total 8.0 mg/dL (7.6-11.0); Carbon Dioxide 20.5 mmol/L (21.0-32.0); Chloride 105 mmol/L (98-108); Estimated Creatinine Clearance 54.23 ml/min (50-250); Glucose 104 mg/dL (70-99); Potassium 3.8 mmol/L (3.3-5.1)
[2025-03-21] MEDS: Piperacil/Tazobactam 3.375 GM in 0.9% Normal Saline (50mL MB+) 50 ML IV ×3 (05:37→22:30)
[2025-03-21] MEDS: 0.9% Normal Saline (1000mL) 1,000 ML 50 ML IV (05:39)
--- NOTE | 2025-03-21 07:48 | PN_ITS ---
Progress Note I discussed her case with her in detail this morning. Repeat CT scan showed continued pneumoperitoneum with no source. The patient had rectal contrast and there was no leakage of contrast noted on CT. The only thickened bowel that I noted on her laparotomy was the sigmoid so the only thing I can offer is to divert proximal to the sigmoid to try to control the perforation. Patient was made n.p.o. last night and she will go to surgery this morning for laparotomy with diversion and colostomy. I discussed the risks of the surgery including bu t not limited to bleeding, infection, injury other organs, need for other bowel resection, and colostomy. Zoltan Calvin MD Pager: [facility] [address] [place] [address] [address] [place] [address] Office:
--- NOTE | 2025-03-21 07:52 | PCM.PRE.AN2 ---
ASA Classification* ASA Classification ASA Classification: 3 and E Assessment & Plan Anesthesia* Anesthesia Assessment Anesthesia Assessment: Discussed sedation and/or anesthesia options, risks, benefits, and alternatives with patient/parents/legal guardian/POA. Questions invited. The patient/parents/legal guardian/POA seems to understand and agrees to proceed with anesthesia plan. Reviewed the physical assessment, medical history, allergy history and patient home medications list prior to surgery/procedure/anesthetic and documented any changes. Performed airway and anesthesia risk assessments. Anesthesia Type Anesthesia Type: General Anesthesia Focused Assessment* Temperature: 98.2 F Pulse Rate: 81 Blood Pressure: 134/62 Respiratory Rate: 18 Pulse Ox: 98 Oxygen Flow Rate (L/min): 2 Airway Assessment Mouth opens: >3 cm Mallampati Score: II Labs Anesthesia Preop lab: CBC WBC, (4.4-11.0) 11.7 K/mm3 H Today, 03:11 RBC, (4.2-5.4) 4.12 M/mm3 L Today, 03:11 Hgb, (12.0-15.0) 12.4 g/dL Today, 03:11 Hct, (37-47) 37.4 % Today, 03:11 Plt Count, (150-450) 286 K/mm3 Today, 03:11 CHEMISTRY Potassium, (3.3-5.1) 3.8 mmol/L Today, 03:11 Sodium, (133-145) 137 mmol/L Today, 03:11 Magnesium, (1.5-2.2) 2.3 mg/dL H 03/20/25, 07:30 Phosphorus, (2.5-4.9) 4.0 mg/dL 05/27/24, 05:07 BUN, (4-19) 10 mg/dL Today, 03:11 Creatinine, (0.70-1.20) 0.83 mg/dL Today, 03:11 Glucose, (70-99) 104 mg/dL H Today, 03:11 POC Glucose, (74-106) 88 mg/dL Today, 06:20 TSH, (0.300-4.200) 0.178 uIU/mL L 03/08/25, 09:55 COAG PT, (11.7-14.9) 13.0 SECONDS 10/31/20, 08:51 Pre-Assessment Diagnosis/Proposed Procedure Planned Operative Procedure(s): Divrting colostomy, exp. 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 When Was Last Pacemaker Check QUESTION #4 FULL TEXT: You/Your Family Experience fever (hyperthermia) with Anesthesia Last Oral Intake Last Oral intake: Last Oral Intake NPO since 00:00 03/21/25 07:43 Meds taken in AM with sips of No 03/21/25 07:43 water? 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 Female HX of Motion Sickness HX of N/V After Surgery Non-Smoker Duration of Surgery greater than 60 minutes Number of Risk Factors PONV Score Height & Weight Height & Weight: Anesthesia: Height & Weight Height 5 ft 2.99 in 03/21/25 07:43 Weight: 83.7 kg 03/21/25 07:43 Body Mass Index (BMI) 32.7 03/21/25 07:43 Respiratory Assessment Respiratory Assessment - brake press operator: Respiratory Tract Infection Hx - brake press operator Hx Respiratory Tract Infection No 03/21/25 00:30 STOP Sleep Apnea STOP Sleep Apnea - brake press operator: STOP Sleep Apnea - brake press operator Hx Hypertension No 03/17/25 13:46 Hx Sleep Apnea No 03/16/25 11:26 CPAP BIPAP Do you snore loudly (louder No 03/16/25 11:26 than talking or can be heard Do you often feel tired/ No 03/16/25 11:26 fatigued/ sleepy during daytime? Has anyone observed you stop No 03/16/25 11:26 breathing during sleep? STOP Results Negative 03/16/25 14:37 QUESTION #5 FULL TEXT : Do you snore loudly (louder than talking or can be heard through closed doors)? 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 Specify any problems Hx of Preganancy in last 3 Months Nurse Filling Out Transfusion & Questions: Date: Time: Patient unable to answer at this time (ie. confused, unrespo /Reproduction History /Reproductive History - brake press operator: /Reproductive Hx- brake press operator Hx Now No 03/21/25 00:30 Gestational Age (in weeks): EDC: Hx Hx Para Hx Section SAB No 03/21/25 00:30 Does the father of the baby or his family experience fever w Father of the baby Malignant Hypertension history comment Active Medications Active Medications: Current Medications Generic Name Dose Route Start Last Admin Trade Name Freq PRN Reason Stop Dose Admin Acetaminophen 650 mg 03/20/25 10:24 Acetaminophen 325 Mg Tablet PO Q6H PRN PRN Pain 1-10 or Fever Albuterol Sulfate 2.5 mg 03/16/25 14:45 03/20/25 23:07 Albuterol 2.5 Mg/3 Ml Vial.Neb. INHALATION 2.5 mg Q4H PRN Administration shortness of breath or wheezing Gabapentin 100 mg 03/20/25 10:30 03/20/25 22:45 Gabapentin 100 Mg Capsule PO 100 mg BID WANDA Administration Glucagon 1 mg 03/18/25 12:29 Glucagon 1 Mg/Ml Syringe IM X1 PRN Hypoglycemia Protocol Heparin Sodium (Porcine) 5,000 unit 03/20/25 22:00 03/21/25 03:17 Heparin Injection (Vial) 5,000 Unit/Ml Vial SC Not Given Q8 WANDA Hydromorphone HCl 0.5 mg 03/18/25 18:54 03/20/25 18:03 Hydromorphone 0.5 Mg/0.5 Ml Syringe IV 0.5 mg Q4H PRN PRN Administration Pain Score 6-10 Piperacillin Sod/Tazobactam 50 mls @ 12.5 mls/hr 03/16/25 22:00 03/21/25 05:37 Sod 3.375 gm/ Sodium Chloride IV 12.5 mls/hr Q8 WANDA Administration Pantoprazole Sodium 40 mg/ 100 mls @ 330 mls/hr 03/17/25 10:00 03/20/25 11:56 Sodium Chloride IV Infused Q24 WANDA Infusion Dextrose 250 mls @ 0 mls/hr 03/18/25 12:29 Dextrose 10%-Water IV .Q0M PRN HYPOGLYCEMIA Protocol As Directed Sodium Chloride 1,000 mls @ 50 mls/hr 03/20/25 10:30 03/21/25 05:39 IV 50 mls/hr .Q20H WANDA Administration Levothyroxine Sodium 112 mcg 03/21/25 06:00 03/21/25 05:37 Levothyroxine 112 Mcg Tablet PO Not Given DAILY@0600 WANDA Metoclopramide HCl 5 mg 03/18/25 12:43 03/20/25 11:02 Metoclopramide 10 Mg/2 Ml Vial IV 5 mg Q8H PRN PRN Administration NAUSEA/VOMITING Metoprolol Tartrate 5 mg 03/20/25 18:00 03/21/25 05:36 Metoprolol Tartrate 5 Mg/5 Ml Vial IV 5 mg Q6 WANDA Administration Protocol Ondansetron HCl 4 mg 03/16/25 14:41 03/18/25 18:10 Ondansetron 4 Mg/2 Ml Vial IV 4 mg Q6H PRN PRN Administration NAUSEA/VOMITING Sodium Chloride 10 - 40 ml 03/16/25 14:41 03/20/25 18:02 0.9% Saline Lock 10 Ml Syringe IV 10 ml UD PRN Administration SALINE FLUSH Sodium Chloride 10 - 40 ml 03/16/25 14:41 0.9% Saline Lock 10 Ml Syringe IV UD PRN SALINE FLUSH Sodium Chloride 10 - 40 ml 03/16/25 17:08 0.9% Saline Lock 10 Ml Syringe IV UD PRN SALINE FLUSH PFSH Medical History Cardiomyopathy Obesity (BMI 30.0-34.9) New onset of congestive heart failure Acute respiratory insufficiency Polymyalgia rheumatica Dyspnea on exertion Rheumatoid arthritis Gout Hypothyroidism Essential hypertension Type 2 diabetes mellitus Home Medications ?Medication ?Instructions ?Recorded ?Last Taken ?Type gabapentin 100 mg capsule 100 mg PO BID nerve pain 04/30/15 05/25/24 History acetaminophen 500 mg tablet 500 mg PO Q6H PRN Pain 10/20/20 Unknown History albuterol sulfate 90 mcg/actuation 1 puff inhalation Q4H PRN 04/16/24 Unknown History aerosol inhaler shortness of breath or wheezing calcium 600 mg (as carbonate)-vit 1 tab PO DAILY supplement 04/16/24 Unknown History D3 20 mcg (800 unit) chewable tablet (Caltrate plus D) hydroxychloroquine 200 mg tablet 200 mg PO BID 04/16/24 05/25/24 History (Plaquenil) aspirin 81 mg tablet,delayed 81 mg PO QDAY 05/08/24 05/25/24 History release (Adult Low Dose Aspirin) allopurinol 100 mg tablet 100 mg PO BID gout 07/23/24 Unknown History fluticasone fur. 200 mcg-umeclid 1 inh inhalation Q24H asthma 07/23/24 Unknown History 62.5 mcg-vilant 25 mcg inhalat.powder (Trelegy Ellipta) dapagliflozin propanediol 10 mg 10 mg PO QAM heart #90 tabs 10/16/24 03/16/25 09:00 Rx tablet (Farxiga) levothyroxine 112 mcg tablet 112 mcg PO QDAY thyroid 11/13/24 03/16/25 06:00 History sacubitril 49 mg-valsartan 51 mg 1 tab PO BID #180 tabs 11/16/24 Unknown Rx tablet (Entresto) carvedilol 6.25 mg tablet 6.25 mg PO BID #180 tabs 02/10/25 Unknown Rx spironolactone 25 mg tablet 25 mg PO DAILY CHF #90 tabs 02/10/25 Unknown Rx multivitamin (Daily Multi-Vitamin 1 tab PO DAILY supplement 03/16/25 Unknown History tablet) Allergy/AdvReac Type Severity Reaction Status Date / Time amoxicillin AdvReac GI upset, Verified 03/16/25 08:31 Nausea and vomiting Family History Mother History of DVT (deep vein thrombosis) Hypertension Father Cancer Lung Sister CAD (coronary artery disease) History of coronary artery bypass surgery Surgical History History of left heart catheterization (LHC) (~11/15/20) H/O right knee surgery History of carpal tunnel surgery History of hysterectomy History of appendectomy Social History household members: none Smoking Status: Never smoker alcohol intake: current details: occasional substance use type: does not use caffeine: Yes Type: coffee Number of servings: 3 and tea Review of Systems (Anesthesia) ROS Narrative System reviewed and no additional complaints, except as documented.
[2025-03-21] MEDS: Lidocaine 1% (5 ml sdv) 5 ML Vial 3 ML IV (08:10)
[2025-03-21] MEDS: Midazolam 2 MG/2 ML Syringe IV (08:10)
[2025-03-21] MEDS: fentaNYL 100 MCG/2 ML Ampul IV (08:11)
--- NOTE | 2025-03-21 09:47 | PCM.OPRPT ---
Operative Report (Standard) Operative Information Date of Procedure: 03/21/25 Pre-Operative Diagnosis: Persistent perforation of bowel Post-Operative Diagnosis: Perforation of sigmoid colon Surgery/Procedure Performed: Exploratory laparotomy with end colostomy retirement assistant: Yes Sales And Service Technician: Moody Moraes Tasks completed by information assistant: Opening & closing and Retracting Type of Anesthesia: General/Regional RN Documented Start/Stop Times: Operation Date: 03/21/25 08:20 Case Time Anesthesia Start 03/21/25 08:02 Into Room 03/21/25 08:02 Procedure Start 03/21/25 08:31 Procedure Start Time: 08:31 Procedure Stop Time: 09:58 Select all DRAINS/GRAFTS/IMPLANTS that apply: Drains Drain details: TRACEY to bulb suction Estimated Blood Loss: 20 Specimen collected: No Description of surgery: Patient was brought back to the operating room and general anesthesia was induced. The prior drain was removed and a Hawkins catheter was placed. The ifeanyi were removed. The abdomen was prepped and draped in usual sterile fashion. The incision was reopened and the fascial suture was cut. The wound protector was placed into the abdomen. There was some feculent material in the abdomen. It was suctioned dry. The source was not well identified. The only thickened area of bowel was the sigmoid colon once again. The small bowel was run from the ligament of Treitz to the ileocecal valve and the small bowel did not appear to have a perforation. As the sigmoid was the only area of thickening I elected to divert her proximal to this. I was unable to get past the sigmoid thickening due to scar tissue from her hysterectomy. Proximal to the thickening stapler was used to divide the colon and harmonic impact was used to take down the mesocolon. The abdomen was irrigated and suctioned dry. There was no further area of perforation identified. Next an opening in the skin was made in the left abdomen and the skin piece was removed for the colostomy site. The fat was divided as was the anterior fascia. A cruciate incision in the anterior fascia was made. The muscle was spread and the abdomen was entered. The opening was dilated with 2 fingers and then the distal descending colon was brought through the colostomy opening. It was clamped in place with a [place]. It was sutured to the posterior fascia using a 3-0 Vicryl suture. Next the abdomen was closed with a #1 PDS suture starting at the top and bottom meeting in the middle. The subcutaneous tissue was irrigated and then the skin was stapled closed. Next the colostomy was matured. The staple line was taken off of the distal colon using electrocautery. The skin sites were sutured to this distal colon in a Magaly fashion. It was matured using interrupted 3-0 Vicryl sutures. The appliance was placed over the colostomy. The colostomy was digitized and there was a good opening with no stricture. Bandages were applied and patient was taken to PACU in stable condition. Hawkins catheter was left in place. Surgical Findings: Inflamed sigmoid Complications Complications: No Admit VTE Documentation VTE Mechan Device Prophylaxis: SCD's
--- NOTE | 2025-03-21 10:04 | PCM.POST.ANE ---
Anesthesia: Postop Eval I Current Vital Signs Temperature: 98.3 F Pulse Rate: 73 Blood Pressure: 107/43 Respiratory Rate: 16 Pulse Ox: 97 Oxygen Delivery Method: Room Air Assessment Airway patent: Yes Spontaneous unlabored respirations: Yes nausea: No Vomiting: No Anesthesia Complication: No Fluid Hydration Crystalloid volume administer (ml): 800 Total IV fluid infused: 800 Progress Note Anesthesia document: Postop Eval 1 completed: Yes
--- NOTE | 2025-03-21 10:05 | PCM.POSTANE2 ---
Anesthesia Postop Eval I Sum Postop Eval Completion status Anesthesia document: Postop Eval 1 completed: Yes Anesthesia Postop Eval I Summary Anesthesia Postop Eval I Summary: Anesthesia Postop Eval I: Assessment Summary Airway patent Yes 03/21/25 10:05 Spontaneous unlabored Yes 03/21/25 10:05 respirations Mental status Awake 03/16/25 14:57 nausea No 03/21/25 10:05 Vomiting No 03/21/25 10:05 Anesthesia Postop Eval I: Fluid Summary Crystalloid volume administer 800 03/21/25 10:05 (ml) Colloids volume administered ( ml) Blood Product volume administered (ml) Total IV fluid infused 800 03/21/25 10:05 Anesthesia Postop Eval I: Summary Notes Anesthesia Complication No 03/21/25 10:05 Anesthesia Complication Comment: Post-operative progress note Anesthesia: Postop Eval II Evaluation Mental status: Awake Pain Level: 1 nausea: No Vomiting: No
[2025-03-21] MEDS: Pantoprazole Sodium 40 MG in 0.9% Normal Saline (100mL MB+) 100 ML 330 MG IV (12:06)
[2025-03-21] MEDS: HYDROmorphone 0.5 MG/0.5 ML SYRINGE IV (12:46)
[2025-03-21] MEDS: Albuterol 2.5 MG/3 ML VIAL.NEB. INHALATION (13:50)
[2025-03-21] MEDS: LACTATED RINGERS 500 ML 999 ML IV (13:55)
--- NOTE | 2025-03-21 14:53 | NURSING ---
Bolus complete and noted spo2 on 2 l nc 86%. Pt placed on 24 % 2 L venti mask.
[2025-03-21] MEDS: Heparin Injection (Vial) 5,000 UNIT/ML VIAL 5000 UNIT SC (15:47)
[2025-03-21] MEDS: Dext 5%-0.45% NS 1,000 ML 100 ML IV (16:47)
[2025-03-21 16:52] LABS: Hematocrit 47.7 % (37-47); Hemoglobin 15.6 g/dL (12.0-15.0); Immature Granulocytes Count 0.290 X10^3/uL (0.0-0.0); Mean Corp Hgb Conc 32.7 g/dL (32-36); Mean Corpuscular Volume 91.7 fL (81-99); Mean Platelet Vol. 10.4 fl (6.2-12.0); NRBC Flagged by Analyzer 0 % (0-5); Platelet Count 357 K/mm3 (150-450); RBC Distribution Width CV 14.0 % (11.6-14.6); RBC Distribution Width SD 47.6 fl (35.1-43.9); Red Blood Count 5.20 M/mm3 (4.2-5.4); White Blood Count 16.5 K/mm3 (4.4-11.0)
[2025-03-21 17:08] LABS: Anion Gap 12 (5-15); BUN 12 mg/dL (4-19); BUN/Creat Ratio 12.8 RATIO (10-20); Calcium,Total 7.6 mg/dL (7.6-11.0); Carbon Dioxide 17.3 mmol/L (21.0-32.0); Chloride 109 mmol/L (98-108); Estimated Creatinine Clearance 49.46 ml/min (50-250); Glucose 105 mg/dL (70-99); Potassium 4.1 mmol/L (3.3-5.1)
--- NOTE | 2025-03-21 22:32 | NURSING ---
Dr. Moraes on the floor seen patient no new orders at this time.
[2025-03-22] VITALS (36 sets, daily range): BP systolic 81–138; BP diastolic 36–91; PULSE 73–88; RESP 13–32; TEMP 36.3–37.6; O2SAT 94–99; BMI 32.7
[2025-03-22] MEDS: Dext 5%-0.45% NS 1,000 ML 100 ML IV ×3 (02:47→22:33)
[2025-03-22] MEDS: Piperacil/Tazobactam 3.375 GM in 0.9% Normal Saline (50mL MB+) 50 ML IV ×3 (05:18→22:35)
[2025-03-22 07:20] LABS: Hematocrit 39.4 % (37-47); Hemoglobin 12.9 g/dL (12.0-15.0); Immature Granulocytes Count 0.470 X10^3/uL (0.0-0.0); Mean Corp Hgb Conc 32.7 g/dL (32-36); Mean Corpuscular Volume 92.7 fL (81-99); Mean Platelet Vol. 10.7 fl (6.2-12.0); NRBC Flagged by Analyzer 0 % (0-5); Platelet Count 332 K/mm3 (150-450); RBC Distribution Width CV 14.6 % (11.6-14.6); RBC Distribution Width SD 49.4 fl (35.1-43.9); Red Blood Count 4.25 M/mm3 (4.2-5.4); White Blood Count 15.3 K/mm3 (4.4-11.0)
[2025-03-22] MEDS: 0.9% Normal Saline (500mL Bag) 500 ML 999 ML IV (07:30)
--- NOTE | 2025-03-22 07:50 | RAD_ITS ---
PROCEDURE: CHEST 1 VIEW 03/22/2025 REASON FOR EXAM: INCREASED RESP. SOB TECHNIQUE: Frontal view of the chest. COMPARISON: May 26, 2024 FINDINGS: Hardware: Nasogastric tube is in place. EKG leads are seen. Heart: Heart size is mildly enlarged. Lungs: Lungs are hypoventilated. Subsegmental atelectasis is shown at the lung bases. Mildly elevated right hemidiaphragm. No pleural effusion or pneumothorax. Bones: Degenerative changes are identified within the thoracic spine. RAD/Chest 1 View IMPRESSION: Bibasilar atelectasis. Hypoventilation. Reading Location: [id number]
--- NOTE | 2025-03-22 08:04 | NURSING ---
ON step down monitor per nursing measure
[2025-03-22 08:11] LABS: Anion Gap 9 (5-15); BUN 16 mg/dL (4-19); BUN/Creat Ratio 9.4 RATIO (10-20); Calcium,Total 7.7 mg/dL (7.6-11.0); Carbon Dioxide 20.3 mmol/L (21.0-32.0); Chloride 107 mmol/L (98-108); Estimated Creatinine Clearance 27.28 ml/min (50-250); Glucose 175 mg/dL (70-99); Potassium 4.0 mmol/L (3.3-5.1)
--- NOTE | 2025-03-22 09:32 | WOUNDNOTE ---
Was consulted to see patient for new colostomy. patient is POD#1. Pt very drowsy this am. midline and TRACEY dressings are dry and intact. colostomy appliance is intact to the left abdomen. small amount of liquid brown stool noted in the appliance. will plan to change appliance with patient and possibly family tomorrow or Saturday. will recommend [facility] for patient if plan is for discharge home.
--- NOTE | 2025-03-22 09:58 | PCM.PN.HOSP ---
Reason for Visit Chief Complaint: Abdominal pain Subjective Subjective The patient's pain is better controlled now. She is having some minimal output of her ostomy and does seem to have air in her ostomy. Abdominal pain improved with NG tube placement. Patient has been hypotensive and trialing fluid boluses which she failed to transfer to ICU per discussion with general surgery. Will likely need pressors. Patient is n.p.o. Objective Data Objective Data Vital Signs: Vital Signs Temp Pulse Resp BP Pulse Ox O2 Del Method O2 Flow Rate 97.4 F L 75 21 H 91/38 L 97 Room Air 2 03/22/25 08:23 03/22/25 09:18 03/22/25 09:18 03/22/25 09:18 03/22/25 09:18 03/22/25 08:23 03/22/25 04:07 FiO2 25 03/21/25 14:52 Oxygen Flow Rate (L/min) 2 Oxygen Delivery Method Room Air Weight: 83.7 kg Body Mass Index (BMI) 32.7 Intake & Output: Intake and Output for Last 24 Hours 03/20/25 03/21/25 03/22/25 23:59 23:59 23:59 Intake Total 2110 / 2110 3573.33 / 3573.33 1550 / 1550 Output Total 335 / 335 626 / 626 Balance 2081 / 2081 3238.33 / 3238.33 924 / 924 Lab / Micro Data 03/22/25 07:00 03/22/25 07:00 Labs: Laboratory Results - last 24 hr 03/21/25 12:00: POC Glucose 102 03/21/25 16:15: WBC 16.5 H, RBC 5.20, Hgb 15.6 H, Hct 47.7 H, MCV 91.7, MCH 30.0, MCHC 32.7, RDW Std Deviation 47.6 H, RDW Coeff of Jonnathan 14.0, Plt Count 357, MPV 10.4, Immature Gran % (Auto) 1.800 H, Neut % (Auto) 84.7 H, Lymph % (Auto) 6.7 L, Robertson % (Auto) 4.1, Eos % (Auto) 2.3, Baso % (Auto) 0.4, Absolute Neuts (auto) 14.0 H, Absolute Lymphs (auto) 1.10, Nucleated RBC % 0, Sodium 139, Potassium 4.1, Chloride 109 H, Carbon Dioxide 17.3 L, Anion Gap 12, BUN 12, Creatinine 0.91, Estim Creat Clear Calc 49.46 L, Est GFR (MDRD) Non-Af 64, BUN/Creatinine Ratio 12.8, Glucose 105 H, Calcium 7.6 03/21/25 18:04: POC Glucose 111 H 03/21/25 21:43: POC Glucose 146 H 03/22/25 06:30: POC Glucose 143 H 03/22/25 07:00: WBC 15.3 H, RBC 4.25, Hgb 12.9, Hct 39.4, MCV 92.7, MCH 30.4, MCHC 32.7, RDW Std Deviation 49.4 H, RDW Coeff of Jonnathan 14.6, Plt Count 332, MPV 10.7, Immature Gran % (Auto) 3.100 H, Neut % (Auto) 81.0 H, Lymph % (Auto) 7.8 L, Robertson % (Auto) 6.1, Eos % (Auto) 1.7, Baso % (Auto) 0.3, Absolute Neuts (auto) 12.4 H, Absolute Lymphs (auto) 1.20, Nucleated RBC % 0, Sodium 136, Potassium 4.0, Chloride 107, Carbon Dioxide 20.3 L, Anion Gap 9, BUN 16, Creatinine 1.65 H, Estim Creat Clear Calc 27.28 L, Est GFR (MDRD) Non-Af 31 L, BUN/Creatinine Ratio 9.4 L, Glucose 175 H, Calcium 7.7 Radiography Diagnostic Testing: Radiology Impression Chest X-Ray 03/22/25 07:50 IMPRESSION: Bibasilar atelectasis. Hypoventilation. Reading Location: [id number] Rhythm Strip Rhythm Strip: Sinus Rhythm Rate: 89 Ectopy: None Physical Exam Const alert, oriented x3 and no apparent distress Constitutional Narrative: Obese, elderly, white female, lying in bed, appears ill, son at bedside, pleasant, currently appears comfortable HEENT head/scalp atraumatic HEENT Narrative: Mucous membranes are slightly dry Head and Scalp: normocephalic Neck supple Neck Narrative: Trachea midline, neck veins are flat Resp no retractions, no use of accessory muscles and clear to auscultation bilaterally Resp Narrative: Mild tachypnea Auscultation: Negative for crackles, rhonchi or wheezes Cardio regular rate, regular rhythm, S1 normal heart sound, S2 normal heart sound, no murmurs, no rub, no gallops and no clicks GI GI Narrative: Abdomen is soft, no current distention, diffuse tenderness, incision is clean dry and intact with ABD in place, drain with serosanguineous drainage, ostomy with some minimal output and gas in the bag, ostomy site is pink, bowel sounds are hypoactive Extremity no clubbing, cyanosis or edema Extremity Narrative: Pedal pulses are 2+ Neuro moves all extremities and no focal motor deficits Speech: speech normal Psych Psych Narrative: Affect is flat but appropriate for the current situation normal, eye contact is good, patient interacts appropriately Assessment & Plan Assessment/Plan (1) Bowel perforation: (2) Hypotension: (3) KENYETTA (acute kidney injury): (4) Acute tubular necrosis: PLAN: Plan Acute bowel perforation status post exploratory laparotomy with washout and TRACEY drain placement and creation of colostomy - Postop day 1 from colostomy creation and postop day 7 from ex lap - Tyrell-Aldana drain with serosanguineous drainage - N.p.o. per general surgery - Await recovery of bowel function - NG tube in place - Continue IV antibiotics - TPN per general surgery nutrition Acute postoperative hypotension - Has been persistent - Suspect multifactorial - Has been fluid repleted with 2 L bolus plus continuous fluids at 75 cc/h - Patient has baseline EF of 40% so no further boluses - Transfer to ICU for pressors as patient's maps are still less than 65 - Avoid narcotics if able for pain if needed would recommend fentanyl 25 mcg - Midline placed for pressor utilization and PICC has been ordered as patient will need TPN as well - Hold home antihypertensives - Discussed case with critical care KENYETTA on CKD stage II secondary to ATN - Seems to related to intra and postoperative hypotension - No acute needs for dialysis at this point - Continue Hawkins - I would anticipate that her renal function likely worsens in the next 24 to 48 hours and then slowly gets better as her perfusion improved - Would avoid further IV fluids at this time given her baseline cardiomyopathy - Keep MAP greater than 65 with pressors at this time - Repeat BMP in a.m. Leukocytosis - Multifactorial - Has trended down some last 24 hours - Repeat CBC in a.m. Non-anion gap metabolic acidosis - Improving despite worsening renal function - Will continue to follow Hyperglycemia with history of DM-2 - Likely reactive - Patient is on Farxiga at baseline but this is for cardiomyopathy - Monitor and goal is to keep blood sugars consistently less than 180 Chronic HFrEF secondary to nonischemic cardiomyopathy - EF has improved from 10% April 10 to 40% in October 2024 - Home medications are on hold - Will plan to restart home medications as clinically appropriate - No current signs of acute decompensation but monitor closely with fluid resuscitation History of gout - Home allopurinol on hold Neuropathy - Hold home gabapentin and restart as able Hypothyroidism - Levothyroxine 200 mcg every 3 days - Patient has already received 1 dose of IV Synthroid at 200 mcg History of rheumatoid arthritis - Hold Plaquenil and restart as able Obesity - BMI is 32.7 - Complicates treatment, prognosis, outcomes - Recommend weight loss DVT prophylaxis - SCDs - Start chemoprophylaxis as soon as able to per primary service CODE STATUS - Currently none ordered if not addressed by surgery will address tomorrow Charges/Coding Visit Charges Inpatient E&M: 38030 Subs Hosp L3
[2025-03-22] MEDS: Pantoprazole Sodium 40 MG in 0.9% Normal Saline (100mL MB+) 100 ML 330 MG IV (10:09)
--- NOTE | 2025-03-22 10:09 | CASEMGMT ---
Discharge Planning A list of?HH providers including quality and resource use data and consistent with the patient's preferred geographic region, medical needs, and insurance network was created in [facility] Guide.? This list was provided to the RN NEGRO. Erin Murcia, Discharge Planning Asst.
--- NOTE | 2025-03-22 10:13 | NURSING ---
spoke with pharmacy asking address IVF bolus as per order so it can be given
[2025-03-22] MEDS: Lactated Ringers 1,000 ML 999 ML IV ×2 (10:18→11:32)
--- NOTE | 2025-03-22 10:28 | NURSING ---
son Dereck at bedside and updated
--- NOTE | 2025-03-22 11:14 | CASEMGMT ---
Addendum entered by Gissel Oconnell 03/22/25 14:00: Handoff given to [employer]GR[employer]. Original Note: NITA TOM into pt room to discuss dc planning. Pt lying in bed with NG in and son at bedside. Pt and son report that it is their understanding that pt will be going to [facility] after this hospital stay. Pt states that is where she would like to go and she denies need for a list of other options. Message to admissions at [facility], they do not have a referral. Pt is not medically ready for dc yet but referral made in anticipation of this need. NITA TOM to follow.
[2025-03-22] MEDS: 0.9% Saline Lock 10 ML Syringe IV (12:29)
[2025-03-22] MEDS: BENZOCAINE/MENTHOL 1 LOZENGE MUCOUS MEM (12:30)
--- NOTE | 2025-03-22 13:14 | PCM.PN.SRG ---
Subjective Subjective Patient evaluated resting in bed. This morning, per nursing staff, patient has been lethargic and difficult to arouse. This afternoon when I saw her, she seems more alert. She is currently on the monitor for hypotension and tachypnea. Patient's urine output has been low. She is putting out liquidy dark stool from her stoma. She had flatus over night. She denies any abdominal pain currently. TRACEY drain with serous fluid noted. Patient seems overal very fatigued. Objective Data Objective Data Vital Signs: Vital Signs Temp Pulse Resp BP Pulse Ox O2 Del Method O2 Flow Rate 97.4 F L 83 22 H 106/47 L 97 Room Air 2 03/22/25 08:23 03/22/25 12:03/22/25 12:03/22/25 12:03/22/25 12:03/22/25 12:03/22/25 04:07 FiO2 25 03/21/25 14:52 Oxygen Flow Rate (L/min) 2 Oxygen Delivery Method Room Air Weight: 184 lb 8.43 oz Body Mass Index (BMI) 32.7 Intake & Output: Intake and Output for Last 24 Hours 03/20/25 03/21/25 03/22/25 23:59 23:59 23:59 Intake Total 2110 / 2110 3573.33 / 3573.33 4671.67 / 4671.67 Output Total 335 / 335 716 / 716 Balance 2081 / 2081 3238.33 / 3238.33 3955.67 / 3955.67 Lab / Micro Data 03/22/25 07:00 03/22/25 07:00 Labs: Laboratory Results - last 24 hr 03/21/25 16:15: WBC 16.5 H, RBC 5.20, Hgb 15.6 H, Hct 47.7 H, MCV 91.7, MCH 30.0, MCHC 32.7, RDW Std Deviation 47.6 H, RDW Coeff of Jonnathan 14.0, Plt Count 357, MPV 10.4, Immature Gran % (Auto) 1.800 H, Neut % (Auto) 84.7 H, Lymph % (Auto) 6.7 L, Ashley % (Auto) 4.1, Eos % (Auto) 2.3, Baso % (Auto) 0.4, Absolute Neuts (auto) 14.0 H, Absolute Lymphs (auto) 1.10, Nucleated RBC % 0, Sodium 139, Potassium 4.1, Chloride 109 H, Carbon Dioxide 17.3 L, Anion Gap 12, BUN 12, Creatinine 0.91, Estim Creat Clear Calc 49.46 L, Est GFR (MDRD) Non-Af 64, BUN/Creatinine Ratio 12.8, Glucose 105 H, Calcium 7.6 03/21/25 18:04: POC Glucose 111 H 03/21/25 21:43: POC Glucose 146 H 03/22/25 06:30: POC Glucose 143 H 03/22/25 07:00: WBC 15.3 H, RBC 4.25, Hgb 12.9, Hct 39.4, MCV 92.7, MCH 30.4, MCHC 32.7, RDW Std Deviation 49.4 H, RDW Coeff of Jonnathan 14.6, Plt Count 332, MPV 10.7, Immature Gran % (Auto) 3.100 H, Neut % (Auto) 81.0 H, Lymph % (Auto) 7.8 L, Ashley % (Auto) 6.1, Eos % (Auto) 1.7, Baso % (Auto) 0.3, Absolute Neuts (auto) 12.4 H, Absolute Lymphs (auto) 1.20, Nucleated RBC % 0, Sodium 136, Potassium 4.0, Chloride 107, Carbon Dioxide 20.3 L, Anion Gap 9, BUN 16, Creatinine 1.65 H, Estim Creat Clear Calc 27.28 L, Est GFR (MDRD) Non-Af 31 L, BUN/Creatinine Ratio 9.4 L, Glucose 175 H, Calcium 7.7 03/22/25 11:34: POC Glucose 147 H Radiography Diagnostic Testing: Radiology Impression Chest X-Ray 03/22/25 07:50 IMPRESSION: Bibasilar atelectasis. Hypoventilation. Reading Location: [id number] Rhythm Strip Rhythm Strip: Sinus Rhythm Rate: 89 Ectopy: None Physical Exam Const General Appearance: ill appearing HEENT HEENT Narrative: NG tube intact with dark bilious fluid within the canister approximately 600 cc since this AM Resp Effort and Inspection: tachypneic and decreased respiratory effort Auscultation: diminished lung sounds bilateral lower Cardio regular rate and regular rhythm GI GI Narrative: Abdomen- obese, distended. Hypoactive bowel sounds. Incision c/d/i. TRACEY drain with serous fluid noted. Ostomy with healthy beefy red tissue. Dark borwn liquidy stool noted within the ostomy appliance. Assessment & Plan Assessment/Plan (1) Bigeminy: (2) Bowel perforation: PLAN: Plan I am following this patient in conjunction with Dr. Calvin. I have discussed this patient with Dr. Calvin. He will independently evaluate this patient. POD #1 colostomy creation and POD #7 exploratory laparoscopy converted to open laparotomy with washout and TRACEY drain placement. Patient was found on Saturday, 03/10 to have stool within the TRACEY drain which lead to a colostomy creation yesterday. No perforation was identified during both procedures. Labs reviewed. WBC decreasing. Creatinine increased. Continue IV antibiotics. Patient continues with hypotension with minimal response so far to IV fluid boluses Patient's urine output has been decreased Patient remains tachypneic with CXR completed this morning showing bibasilar atelectasis. Hypoventilation. It seems appropriate for patient to be transferred to the unit for hypotension, tachypnea and low urine output for closer monitoring Appreciate hospitalist recommendations. Will consult amusement centre manager. Appreciate his assistance in advance. We will continue to closely monitor. Charges/Coding Visit Charges Inpatient E&M: 40681 Subs Hosp L1 (post-op)
--- NOTE | 2025-03-22 13:21 | PCM.PN.BLA ---
Progress Note When I saw the patient on morning rounds the patient was comfortable although she was complaining of some shoulder pain but she was belching a lot and having tachypnea. We placed an NG and got about 450 cc out and this helped with 6 tachypnea and the nausea. She is not really complaining of any abdominal pain although her blood pressure has been borderline overnight and this morning. She has gotten 2 L bolus and her creatinine did rise and her urine output is low but the 2 L bolus does not seem to have helped her pressure much. In light of this I would recommend transferring her to the ICU for more intensive care as her pressure is borderline to be on the floor. Given her age and the fact that she has been through 2 laparotomies I will move her to the ICU for observation there. Zoltan Calvin MD Pager: [facility] [address] [place] [address], [address] [place] [phone] Office:
[2025-03-22] MEDS: Acetaminophen 650 MG/20 ML UDC 1000 MG NG ×2 (14:14→22:22)
[2025-03-22] MEDS: Heparin Injection (Vial) 5,000 UNIT/ML VIAL 5000 UNIT SC ×2 (14:15→22:22)
[2025-03-22] MEDS: Norepinephrine 8 MG in 0.9% Normal Saline (250mL Bag) 242 ML 9.4 MG CONT INF (16:52)
[2025-03-22 22:13] LABS: Triglycerides 105 mg/dL
[2025-03-22] MEDS: MELATONIN 3 MG TABLET PO (22:22)
[2025-03-23] VITALS (36 sets, daily range): BP systolic 102–144; BP diastolic 40–73; PULSE 63–87; RESP 20–33; TEMP 36.3–37.2; O2SAT 95–100; BMI 35.0
[2025-03-23] MEDS: Acetaminophen 650 MG/20 ML UDC 1000 MG NG ×3 (05:10→21:05)
[2025-03-23 05:11] LABS: AST(SGOT) 17 U/L (<=31); Alanine Aminotransfer ALT/SGPT 12 U/L (<=34); Albumin, Serum 2.2 g/dL (3.4-4.8); Alkaline Phosphatase 52 U/L (35-104); Anion Gap 9 (5-15); BUN 16 mg/dL (4-19); BUN/Creat Ratio 12.8 RATIO (10-20); Bilirubin, Direct 0.21 mg/dL (0.00-0.30); Calcium,Total 7.3 mg/dL (7.6-11.0); Carbon Dioxide 19.6 mmol/L (21.0-32.0); Chloride 109 mmol/L (98-108); Estimated Creatinine Clearance 36.59 ml/min (50-250); Globulin 2.5 g/dL (2.2-4.2); Glucose 221 mg/dL (70-99)
[2025-03-23] MEDS: Heparin Injection (Vial) 5,000 UNIT/ML VIAL 5000 UNIT SC ×3 (05:11→21:06)
[2025-03-23] MEDS: Piperacil/Tazobactam 3.375 GM in 0.9% Normal Saline (50mL MB+) 50 ML IV ×3 (05:11→21:04)
[2025-03-23 05:14] LABS: Potassium 3.1 mmol/L (3.3-5.1)
--- NOTE | 2025-03-23 05:50 | EX.PCM.CONCC ---
Assessment & Plan Assessment/Plan (1) Hypotension: (2) KENYETTA (acute kidney injury): PLAN: Plan RECOMMENDATIONS: 1. Levophed, if needed, to maintain a mean arterial pressure at or above 65 mmHg. 2. Given that TPN is going to be initiated, we will discontinue IV fluids. 3. Antimicrobials per general surgery. 4. Encourage incentive spirometer use and mobilize patient as tolerated. IMPRESSIONS: 1. Postoperative hypotension Most likely secondary to intravascular volume depletion. The patient did ultimately respond to IV fluid resuscitation along with a transient use of vasopressor support. As of this morning, she has been weaned from Levophed. Will continue to monitor the patient clinically for the need for ongoing vasopressor support. Renal function is improving, suggesting improved global perfusion. 2. KENYETTA on CKD Most likely prerenal in etiology with evolution to ischemic ATN in the setting of hypotension. Anticipate further stabilization and renal function with improving hemodynamic status. No indication for renal replacement therapy. 3. Acute bowel perforation status post exploratory laparotomy with washout and TRACEY drain placement with creation of colostomy Continue routine postoperative care per general surgery. TPN to be initiated for nutritional support. Continue antimicrobials. 4. History of diabetes mellitus/hypothyroidism/rheumatoid arthritis/obesity/neuropathy Complicates care, management, recovery and prognosis. Continue home medications as indicated. This note was generated with [employer] dictation software. It may contain incorrect words, spelling, and punctuation that were not noted in checking the note before signing. HPI Consult Data Date of Consult: 03/23/25 HPI Narrative Reason for Consultation: Hypotension HPI Narrative: The patient is an 79-year-old female, with a history as outlined below, who was initially admitted to the hospital on March 16 after presenting with abdominal pain. Subsequent workup revealed an acute bowel perforation, for which the patient is postop day #2 from colostomy creation. Postoperatively, the patient developed hypotension, which necessitated transfer to the ICU to be placed on vasopressor support. The patient did receive IV fluid resuscitation as part of her initial intervention, but remained hypotensive, despite the aforementioned. Her hospital course has also been complicated by the development of KENYETTA on CKD, most likely the consequence of intraoperative and postoperative hemodynamic instability. The patient has been maintained on antimicrobial therapy since her hospital admission. This morning, the patient is resting comfortably in bed without any reported complaints of pain. Levophed was infused overnight at 5 mcg/min. White blood cell count is stable at 15,000. Hemoglobin and platelet count are stable. Chemistry profile was notable for a potassium of 3.1 with a creatinine of 1.23, improved from yesterday. At the time of ICU rounds this morning, the patient had been weaned completely from vasopressor support. [facility] Medical History (Updated 03/22/25 @ 19:[address] Kitty Figueroa, DO) History of congestive heart failure Cardiomyopathy Obesity (BMI 30.0-34.9) New onset of congestive heart failure Acute respiratory insufficiency Polymyalgia rheumatica Dyspnea on exertion Rheumatoid arthritis Gout Hypothyroidism Essential hypertension Type 2 diabetes mellitus Home Medications ?Medication ?Instructions ?Recorded ?Last Taken ?Type gabapentin 100 mg capsule 100 mg PO BID nerve pain 04/30/15 05/25/24 History acetaminophen 500 mg tablet 500 mg PO Q6H PRN Pain 10/20/20 Unknown History albuterol sulfate 90 mcg/actuation 1 puff inhalation Q4H PRN 04/16/24 Unknown History aerosol inhaler shortness of breath or wheezing calcium 600 mg (as carbonate)-vit 1 tab PO DAILY supplement 04/16/24 Unknown History D3 20 mcg (800 unit) chewable tablet (Caltrate plus D) hydroxychloroquine 200 mg tablet 200 mg PO BID 04/16/24 05/25/24 History (Plaquenil) aspirin 81 mg tablet,delayed 81 mg PO QDAY 05/08/24 05/25/24 History release (Adult Low Dose Aspirin) allopurinol 100 mg tablet 100 mg PO BID gout 07/23/24 Unknown History fluticasone fur. 200 mcg-umeclid 1 inh inhalation Q24H asthma 07/23/24 Unknown History 62.5 mcg-vilant 25 mcg inhalat.powder (Trelegy Ellipta) dapagliflozin propanediol 10 mg 10 mg PO QAM heart #90 tabs 10/16/24 03/16/25 09:00 Rx tablet (Farxiga) levothyroxine 112 mcg tablet 112 mcg PO QDAY thyroid 11/13/24 03/16/25 06:00 History sacubitril 49 mg-valsartan 51 mg 1 tab PO BID #180 tabs 11/16/24 Unknown Rx tablet (Entresto) carvedilol 6.25 mg tablet 6.25 mg PO BID #180 tabs 02/10/25 Unknown Rx spironolactone 25 mg tablet 25 mg PO DAILY CHF #90 tabs 02/10/25 Unknown Rx multivitamin (Daily Multi-Vitamin 1 tab PO DAILY supplement 03/16/25 Unknown History tablet) Allergy/AdvReac Type Severity Reaction Status Date / Time amoxicillin AdvReac GI upset, Verified 03/16/25 08:31 Nausea and vomiting Family History Mother History of DVT (deep vein thrombosis) Hypertension Father Cancer Lung Sister CAD (coronary artery disease) History of coronary artery bypass surgery Surgical History History of left heart catheterization (LHC) (~11/15/20) H/O right knee surgery History of carpal tunnel surgery History of hysterectomy History of appendectomy Social History household members: none Smoking Status: Never smoker alcohol intake: current details: occasional substance use type: does not use caffeine: Yes Type: coffee Number of servings: 3 and tea ROS ROS Narrative 10 systems were reviewed with pertinent positives as noted in the HPI above. Physical Exam Const alert, oriented x3 and no apparent distress General Appearance: cooperative HEENT normocephalic and head/scalp atraumatic Eyes PERRL, EOMs intact bilaterally and conjunctivae normal Neck supple General: trachea midline Chest inspection of chest normal Resp normal respiratory effort Auscultation: Negative for rales, rhonchi or wheezes Cardio regular rate and regular rhythm GI soft to palpation and non-tender Inspection: ostomy present Extremity no clubbing, cyanosis or edema Skin no rashes or lesions noted Neuro CN's II-XII intact bilaterally, moves all extremities and no focal motor deficits Psych cooperative and affect normal Lab / Micro Data 03/23/25 08:28 03/23/25 04:25 Labs: Laboratory Results - last 24 hr 03/21/25 18:04: POC Glucose 111 H 03/22/25 06:30: POC Glucose 143 H 03/22/25 07:00: WBC 15.3 H, RBC 4.25, Hgb 12.9, Hct 39.4, MCV 92.7, MCH 30.4, MCHC 32.7, RDW Std Deviation 49.4 H, RDW Coeff of Jonnathan 14.6, Plt Count 332, MPV 10.7, Immature Gran % (Auto) 3.100 H, Neut % (Auto) 81.0 H, Lymph % (Auto) 7.8 L, Preble % (Auto) 6.1, Eos % (Auto) 1.7, Baso % (Auto) 0.3, Absolute Neuts (auto) 12.4 H, Absolute Lymphs (auto) 1.20, Nucleated RBC % 0, Sodium 136, Potassium 4.0, Chloride 107, Carbon Dioxide 20.3 L, Anion Gap 9, BUN 16, Creatinine 1.65 H, Estim Creat Clear Calc 27.28 L, Est GFR (MDRD) Non-Af 31 L, BUN/Creatinine Ratio 9.4 L, Glucose 175 H, Calcium 7.7, Triglycerides 105 03/22/25 11:34: POC Glucose 147 H 03/22/25 17:27: POC Glucose 137 H 03/22/25 23:40: POC Glucose 193 H 03/23/25 04:25: Sodium 138, Potassium 3.1 L, Chloride 109 H, Carbon Dioxide 19.6 L, Anion Gap 9, BUN 16, Creatinine 1.23 H, Estim Creat Clear Calc 36.59 L, Est GFR (MDRD) Non-Af 44 L, BUN/Creatinine Ratio 12.8, Glucose 221 H, Calcium 7.3 L, Total Bilirubin 0.37, Direct Bilirubin 0.21, AST 17, ALT 12, Alkaline Phosphatase 52, Total Protein 4.7 L, Albumin 2.2 L, Globulin 2.5 Rhythm Strip Rhythm Strip: Sinus Rhythm Rate: 89 Ectopy: None Imaging Radiology Impression Chest X-Ray 03/22/25 07:50 IMPRESSION: Bibasilar atelectasis. Hypoventilation. Reading Location: [id number] Charges/Coding Visit Charges Inpatient E&M: 64037 Init Hosp L3
--- NOTE | 2025-03-23 07:01 | PN.SURG_ITS ---
Subjective Subjective Patient evaluated resting comfortably in bed. She appears more alert today. She notes having some shortness of breath, however less than yesterday. She denies any abdominal pain. She notes her throat pain is better. Her main concern is coughing. She notes a feleing of drainage and phelgm that she needs to cough up, however was told that she is not able to cough. Objective Data Objective Data Vital Signs: Vital Signs Temp Pulse Resp BP Pulse Ox O2 Del Method O2 Flow Rate 97.4 F L 69 20 H 114/59 L 95 Nasal Cannula 2 03/23/25 04:00 03/23/25 06:00 03/23/25 06:00 03/23/25 06:00 03/23/25 06:55 03/23/25 06:55 03/23/25 06:55 FiO2 25 03/21/25 14:52 Oxygen Flow Rate (L/min) 2 Oxygen Delivery Method Nasal Cannula Weight: 197 lb 15.602 oz Body Mass Index (BMI) 35.0 Intake & Output: Intake and Output for Last 24 Hours 03/21/25 03/22/25 03/23/25 23:59 23:59 23:59 Intake Total 3573.33 / 3573.33 5839.32 / 5878.72 173.92 / 173.92 Output Total 335 / 335 1421 / 1421 1600 / 1600 Balance 3238.33 / 3238.33 4418.32 / 4457.72 -1426.08 / -1426.08 Lab / Micro Data 03/22/25 07:00 03/23/25 04:25 Labs: Laboratory Results - last 24 hr 03/22/25 07:00: WBC 15.3 H, RBC 4.25, Hgb 12.9, Hct 39.4, MCV 92.7, MCH 30.4, MCHC 32.7, RDW Std Deviation 49.4 H, RDW Coeff of Jonnathan 14.6, Plt Count 332, MPV 10.7, Immature Gran % (Auto) 3.100 H, Neut % (Auto) 81.0 H, Lymph % (Auto) 7.8 L , Preble % (Auto) 6.1, Eos % (Auto) 1.7, Baso % (Auto) 0.3, Absolute Neuts (auto) 12.4 H, Absolute Lymphs (auto) 1.20, Nucleated RBC % 0, Sodium 136, Potassium 4.0, Chloride 107, Carbon Dioxide 20.3 L, Anion Gap 9, BUN 16, Creatinine 1.65 H , Estim Creat Clear Calc 27.28 L, Est GFR (MDRD) Non-Af 31 L, BUN/Creatinine Ratio 9.4 L, Glucose 175 H, Calcium 7.7, Triglycerides 105 03/22/25 11:34: POC Glucose 147 H 03/22/25 17:27: POC Glucose 137 H 03/22/25 23:40: POC Glucose 193 H 03/23/25 04:25: Sodium 138, Potassium 3.1 L, Chloride 109 H, Carbon Dioxide 19.6 L, Anion Gap 9, BUN 16, Creatinine 1.23 H, Estim Creat Clear Calc 36.59 L, Est GFR (MDRD) Non-Af 44 L, BUN/Creatinine Ratio 12.8, Glucose 221 H, Calcium 7.3 L, Total Bilirubin 0.37, Direct Bilirubin 0.21, AST 17, ALT 12, Alkaline Phosphatase 52, Total Protein 4.7 L, Albumin 2.2 L, Globulin 2.5 03/23/25 06:09: POC Glucose 183 H Radiography Diagnostic Testing: Radiology Impression Chest X-Ray 03/22/25 07:50 IMPRESSION: Bibasilar atelectasis. Hypoventilation. Reading Location: [id number] Rhythm Strip Rhythm Strip: Sinus Rhythm Rate: 89 Ectopy: None Physical Exam HEENT HEENT Narrative: NG tube intact with approximately 300 cc of dark bilious fluid noted. GI GI Narrative: Abdomen- soft, hypoactive bowel sounds. Incisions c/d/i. Midline incision with ifeanyi intact. TRACEY drain with serosanguineous fluid noted. Narrative: Hawkins intact with light yellow urine noted Assessment & Plan Assessment/Plan (1) Bowel perforation: (2) KENYETTA (acute kidney injury): (3) Hypotension: (4) Leukocytosis: PLAN: Plan I am following this patient in conjunction with Dr. Coello in Dr. Calvin's absence. He will independently evaluate this patient. Labs reviewed. WBC at 15.5. Continue IV antibiotics Potassium at 3.1. Replacing Phos at 2.3. Replacing Creatinine decreased to 1.23 Encourage incentive spirometer Levophed being titrated Blood pressure has greatly improved Continue Hawkins to monitor urine output Continue NG tube to wall suction Continue TPN Patient to work with Therapy today Patient to continue to be monitored in the unit today. Hopeful transfer to regular floor tomorrow Code status was discussed with patient, who wishes to be full code at this time Charges/Coding Visit Charges Inpatient E&M: 00265 Subs Hosp L1 (post-op)
--- NOTE | 2025-03-23 07:25 | PCM.PN.HOSP ---
Reason for Visit Chief Complaint: Abdominal pain Subjective Subjective Patient is feeling better today overall. No significant pain complaints at this time. Is having some ostomy output. Now off pressors. Urine output has improved. Remains on room air and denies any respiratory distress Objective Data Objective Data Vital Signs: Vital Signs Temp Pulse Resp BP Pulse Ox O2 Del Method O2 Flow Rate 97.4 F L 69 20 H 114/59 L 95 Nasal Cannula 2 03/23/25 04:00 03/23/25 06:00 03/23/25 06:00 03/23/25 06:00 03/23/25 06:55 03/23/25 06:55 03/23/25 06:55 FiO2 25 03/21/25 14:52 Oxygen Flow Rate (L/min) 2 Oxygen Delivery Method Nasal Cannula Weight: 89.8 kg Body Mass Index (BMI) 35.0 Intake & Output: Intake and Output for Last 24 Hours 03/21/25 03/22/25 03/23/25 23:59 23:59 23:59 Intake Total 3573.33 / 3573.33 5839.32 / 5878.72 173.92 / 173.92 Output Total 335 / 335 1421 / 1421 1600 / 1600 Balance 3238.33 / 3238.33 4418.32 / 4457.72 -1426.08 / -1426.08 Lab / Micro Data 03/23/25 08:28 03/23/25 04:25 Labs: Laboratory Results - last 24 hr 03/22/25 07:00: Sodium 136, Potassium 4.0, Chloride 107, Carbon Dioxide 20.3 L, Anion Gap 9, BUN 16, Creatinine 1.65 H, Estim Creat Clear Calc 27.28 L, Est GFR (MDRD) Non-Af 31 L, BUN/Creatinine Ratio 9.4 L, Glucose 175 H, Calcium 7.7, Triglycerides 105 03/22/25 11:34: POC Glucose 147 H 03/22/25 17:27: POC Glucose 137 H 03/22/25 23:40: POC Glucose 193 H 03/23/25 04:25: Sodium 138, Potassium 3.1 L, Chloride 109 H, Carbon Dioxide 19.6 L, Anion Gap 9, BUN 16, Creatinine 1.23 H, Estim Creat Clear Calc 36.59 L, Est GFR (MDRD) Non-Af 44 L, BUN/Creatinine Ratio 12.8, Glucose 221 H, Calcium 7.3 L, Total Bilirubin 0.37, Direct Bilirubin 0.21, AST 17, ALT 12, Alkaline Phosphatase 52, Total Protein 4.7 L, Albumin 2.2 L, Globulin 2.5 03/23/25 06:09: POC Glucose 183 H Radiography Diagnostic Testing: Radiology Impression Chest X-Ray 03/22/25 07:50 IMPRESSION: Bibasilar atelectasis. Hypoventilation. Reading Location: [id number] Rhythm Strip Rhythm Strip: Sinus Rhythm Rate: 89 Ectopy: None Physical Exam Const alert, oriented x3 and no apparent distress Constitutional Narrative: Obese, elderly, white female, sitting up in bed, appears ill but not toxic, appears comfortable at this time HEENT normocephalic and head/scalp atraumatic HEENT Narrative: Mucous membranes are slightly dry, Mallampati is 3, no thrush, NG tube in place with bile appearing output Neck supple Neck Narrative: Trachea midline, neck veins remain flat Resp normal respiratory effort, no retractions, no use of accessory muscles and clear to auscultation bilaterally Auscultation: Negative for crackles, rhonchi or wheezes Cardio regular rate, regular rhythm, S1 normal heart sound, S2 normal heart sound, no murmurs, no rub, no gallops and no clicks GI GI Narrative: Abdomen is soft, no current distention, diffuse tenderness, incision is clean dry and intact with ABD in place, ostomy with some minimal output and gas in the bag, ostomy site is pink, bowel sounds remain hypoactive, TRACEY in place with serosanguineous drainage Extremity no clubbing, cyanosis or edema Extremity Narrative: Pedal pulses are 2+ Neuro moves all extremities and no focal motor deficits Speech: speech normal Psych Psych Narrative: Affect is flat but appropriate for the current situation normal, eye contact is good, patient interacts appropriately Assessment & Plan Assessment/Plan (1) Bowel perforation: (2) Hypotension: (3) KENYETTA (acute kidney injury): (4) Acute tubular necrosis: PLAN: Plan Acute bowel perforation status post exploratory laparotomy with washout and TRACEY drain placement and creation of colostomy - Postop day 2 from colostomy creation and postop day 8 from ex lap - Tyrell-Aldana drain with serosanguineous drainage - N.p.o. per general surgery - Await recovery of bowel function - Continue NG tube - Continue IV antibiotics - TPN per general surgery nutrition Postoperative ileus - Expected - Continue TPN - Watch for recovery of bowel function - Patient does have some minimal output from her ostomy however bowel sounds remain hypoactive Acute postoperative hypotension - Resolved and patient now off pressors - Suspect multifactorial - Discontinue IV fluids now that on TPN - Patient has baseline EF of 40% so no further boluses - Possible transfer to medical floor tomorrow if blood pressure remains stable KENYETTA on CKD stage II secondary to ATN - Seems to related to intra and postoperative hypotension - Resolving with serum creatinine down from 1.65-1.23 today - Continue Hawkins but hopeful for discontinued in the next 24 hours if okay with surgery - Likely improved from improved perfusion related to improved blood pressures repeat BMP in a.m. Hypokalemia - Potassium replaced - Keep close eye on phosphorus and magnesium and will need alterations in TPN based on this plus boluses Leukocytosis - Multifactorial - Stable - Repeat CBC in a.m. Non-anion gap metabolic acidosis - Down slightly from yesterday - Might be slightly worse today given NG tube - Will continue to follow Hyperglycemia with history of DM-2 - Likely reactive - Fasting sugar this morning was 221 - Add SSI - Accu-Cheks Q6 - Patient is on Farxiga at baseline but this is for cardiomyopathy Chronic HFrEF secondary to nonischemic cardiomyopathy - EF has improved from 10% April 10 to 40% in October 2024 - Home medications are on hold-Will restart as appropriate and okay with general surgery - Monitor volume status and respiratory status closely may need intermittent diuresis History of gout - Home allopurinol on hold Neuropathy - Hold home gabapentin and restart as able Hypothyroidism - Levothyroxine 200 mcg every 3 days - Patient has already received 1 dose of IV Synthroid at 200 mcg History of rheumatoid arthritis - Hold Plaquenil and restart as able Obesity - BMI is 35.1 - Complicates treatment, prognosis, outcomes - Recommend weight loss DVT prophylaxis - SCDs - Heparin SQ every 8 CODE STATUS - Currently none ordered if not addressed by surgery will address tomorrow Charges/Coding Visit Charges Inpatient E&M: 80280 Subs Hosp L2
[2025-03-23 08:39] LABS: Magnesium 1.9 mg/dL (1.5-2.2)
[2025-03-23] MEDS: 0.9% Normal Saline (250mL Bag) 250 ML 15 ML IV ×2 (08:42→10:28)
[2025-03-23] MEDS: Potassium Chloride 20mEq/100mL 20 MEQ/100 ML IV.SOLN. 100 MEQ IV BOLUS ×2 (08:45→09:54)
[2025-03-23] MEDS: Dext 5%-0.45% NS 1,000 ML 100 ML IV (08:49)
[2025-03-23 08:50] LABS: Hematocrit 38.2 % (37-47); Hemoglobin 12.0 g/dL (12.0-15.0); Immature Granulocytes Count 0.310 X10^3/uL (0.0-0.0); Mean Corp Hgb Conc 31.4 g/dL (32-36); Mean Corpuscular Volume 93.2 fL (81-99); Mean Platelet Vol. 10.5 fl (6.2-12.0); NRBC Flagged by Analyzer 0 % (0-5); Platelet Count 399 K/mm3 (150-450); RBC Distribution Width CV 14.2 % (11.6-14.6); RBC Distribution Width SD 48.5 fl (35.1-43.9); Red Blood Count 4.10 M/mm3 (4.2-5.4); White Blood Count 15.5 K/mm3 (4.4-11.0)
[2025-03-23] MEDS: 0.9% Saline Lock 10 ML Syringe IV ×4 (08:50→16:25)
[2025-03-23] MEDS: Pantoprazole Sodium 40 MG in 0.9% Normal Saline (100mL MB+) 100 ML 330 MG IV (10:29)
[2025-03-23] MEDS: Potassium Phosphate 15 MM in 0.9% Normal Saline (250mL Bag) 250 ML 125 MM IV (11:04)
[2025-03-23 13:37] LABS: Triglycerides 124 mg/dL
[2025-03-23] MEDS: TPN - Clinimix E 8%-14% Soln 2,000 ML with Multivitamins 10 ML, Trace Elements 1 ML, Fo... 42 ML IV (16:16)
[2025-03-23] MEDS: MELATONIN 3 MG TABLET PO (21:05)
[2025-03-24] VITALS (18 sets, daily range): BP systolic 111–141; BP diastolic 42–70; PULSE 73–87; RESP 16–36; TEMP 36.4–36.6; O2SAT 94–98; BMI 35.6
[2025-03-24] MEDS: Phenol/Sodium Phenolate 180ML 3 SPRAY MUCOUS MEM (01:09)
[2025-03-24 04:43] LABS: Hematocrit 36.2 % (37-47); Hemoglobin 10.9 g/dL (12.0-15.0); Immature Granulocytes Count 0.140 X10^3/uL (0.0-0.0); Mean Corp Hgb Conc 30.1 g/dL (32-36); Mean Corpuscular Volume 97.1 fL (81-99); Mean Platelet Vol. 10.4 fl (6.2-12.0); NRBC Flagged by Analyzer 0 % (0-5); Platelet Count 337 K/mm3 (150-450); RBC Distribution Width CV 14.8 % (11.6-14.6); RBC Distribution Width SD 53.1 fl (35.1-43.9); Red Blood Count 3.73 M/mm3 (4.2-5.4); White Blood Count 10.0 K/mm3 (4.4-11.0)
[2025-03-24 05:23] LABS: AST(SGOT) 15 U/L (<=31); Alanine Aminotransfer ALT/SGPT 10 U/L (<=34); Albumin, Serum 2.0 g/dL (3.4-4.8); Alkaline Phosphatase 49 U/L (35-104); Anion Gap 6 (5-15); BUN 17 mg/dL (4-19); BUN/Creat Ratio 18.6 RATIO (10-20); Calcium,Total 7.4 mg/dL (7.6-11.0); Carbon Dioxide 17.8 mmol/L (21.0-32.0); Chloride 106 mmol/L (98-108); Estimated Creatinine Clearance 50.25 ml/min (50-250); Globulin 2.4 g/dL (2.2-4.2); Potassium 5.1 mmol/L (3.3-5.1)
[2025-03-24 05:33] LABS: Glucose 799 mg/dL (70-99)
--- NOTE | 2025-03-24 05:49 | PN.CC_ITS ---
Assessment & Plan Assessment/Plan (1) Hypotension: (2) KENYETTA (acute kidney injury): PLAN: Plan RECOMMENDATIONS: 1. Continue TPN. 2. Antimicrobials per general surgery. 3. Encourage incentive spirometer use and mobilize patient as tolerated. 4. The patient is medically stable for transfer out of the intensive care unit. 5. Will sign off from a critical care perspective. Please call with any additional questions. IMPRESSIONS: 1. Postoperative hypotension Resolved. Most likely secondary to intravascular volume depletion. The patient did ultimately respond to IV fluid resuscitation along with a transient use of vasopressor support. She has since been weaned from vasopressor support and remains hemodynamically stable. Renal function has improved in the setting of improved global perfusion. 2. KENYETTA on CKD Resolved. Most likely prerenal in etiology with evolution to ischemic ATN in the setting of hypotension. Creatinine has normalized with stabilization of hemodynamics. 3. Acute bowel perforation status post exploratory laparotomy with washout and TRACEY drain placement with creation of colostomy Continue routine postoperative care per general surgery. TPN to be continued for nutritional support. Continue antimicrobials. 4. History of diabetes mellitus/hypothyroidism/rheumatoid arthritis/obesity/neuropathy Complicates care, management, recovery and prognosis. Continue home medications as indicated. This note was generated with [employer] dictation software. It may contain incorrect words, spelling, and punctuation that were not noted in checking the note before signing. Subjective Subjective The patient was seen and examined at the bedside this morning. Events from the last 24 hours have been reviewed. The patient is currently afebrile, hemodynamically stable and maintaining appropriate oxygen saturations on room air. The patient was weaned off of vasopressor support yesterday and has remained hemodynamically stable. White blood cell count has normalized. Creatinine is within normal limits. Objective Data Objective Data The patient's most recent lab work, culture data and imaging studies have all been personally reviewed. Vital Signs: Vital Signs Temp Pulse Resp BP Pulse Ox O2 Del Method O2 Flow Rate 97.7 F L 82 26 H 134/57 H 98 Room Air 2 03/24/25 04:00 03/24/25 04:00 03/24/25 04:00 03/24/25 04:00 03/24/25 04:00 03/24/25 04:00 03/23/25 07:30 FiO2 03/21/25 14:52 Oxygen Flow Rate (L/min) 2 Oxygen Delivery Method Room Air Weight: 197 lb 15.602 oz Body Mass Index (BMI) 35.0 Intake & Output: Intake and Output for Last 24 Hours 03/22/25 03/23/25 03/24/25 23:59 23:59 23:59 Intake Total 5839.32 / 5878.72 3418.71 / 3448.71 360 / 360 Output Total 1421 / 1421 4050 / 4550 500 / 500 Balance 4418.32 / 4457.72 -631.29 / -1101.29 -140 / -140 Lab / Micro Data Attestation: I reviewed the patient's lab results. 03/24/25 04:37 03/24/25 05:50 Labs: Laboratory Results - last 24 hr 03/23/25 04:25: Phosphorus 2.3 L, Magnesium 1.9, Triglycerides 124 03/23/25 06:09: POC Glucose 183 H 03/23/25 08:28: WBC 15.5 H, RBC 4.10 L, Hgb 12.0, Hct 38.2, MCV 93.2, MCH 29.3, MCHC 31.4 L, RDW Std Deviation 48.5 H, RDW Coeff of Jonnathan 14.2, Plt Count 399, MPV 10.5, Immature Gran % (Auto) 2.000 H, Neut % (Auto) 82.7 H, Lymph % (Auto) 5.4 L , [place] % (Auto) 4.9, Eos % (Auto) 4.7, Baso % (Auto) 0.3, Absolute Neuts (auto) 12.8 H, Absolute Lymphs (auto) 0.83, Nucleated RBC % 0 03/23/25 12:11: POC Glucose 141 H 03/23/25 17:54: POC Glucose 118 H 03/24/25 00:01: POC Glucose 141 H 03/24/25 04:37: WBC 10.0, RBC 3.73 L, Hgb 10.9 L, Hct 36.2 L, MCV 97.1, MCH 29.2, MCHC 30.1 L, RDW Std Deviation 53.1 H, RDW Coeff of Jonnathan 14.8 H, Plt Count 337, MPV 10.4, Immature Gran % (Auto) 1.400 H, Neut % (Auto) 79.0 H, Lymph % (Auto) 10.1 L, [place] % (Auto) 5.3, Eos % (Auto) 3.7, Baso % (Auto) 0.5, Absolute Neuts (auto) 7.9 H, Absolute Lymphs (auto) 1.01, Nucleated RBC % 0, Sodium 129 L , Potassium 5.1, Chloride 106, Carbon Dioxide 17.8 L, Anion Gap 6, BUN 17, Creatinine 0.93, Estim Creat Clear Calc 50.25, Est GFR (MDRD) Non-Af 62, BUN/Creatinine Ratio 18.6, Glucose 799 H*, Calcium 7.4 L, Phosphorus 5.3 H, Total Bilirubin 0.34, AST 15, ALT 10, Alkaline Phosphatase 49, Total Protein 4.4 L, Albumin 2.0 L, Globulin 2.4, Albumin/Globulin Ratio 0.8 L Rhythm Strip Rhythm Strip: Sinus Rhythm Rate: 89 Ectopy: None Physical Exam Const alert, oriented x3 and no apparent distress General Appearance: cooperative HEENT normocephalic and head/scalp atraumatic Eyes PERRL, EOMs intact bilaterally and conjunctivae normal Neck supple General: trachea midline Chest inspection of chest normal Resp normal respiratory effort Auscultation: Negative for rales, rhonchi or wheezes Cardio regular rate and regular rhythm GI soft to palpation and non-tender Inspection: ostomy present Extremity no clubbing, cyanosis or edema Skin no rashes or lesions noted Neuro CN's II-XII intact bilaterally, moves all extremities and no focal motor deficits Psych cooperative and affect normal Charges/Coding Visit Charges Inpatient E&M: 07303 Subs Hosp L2
[2025-03-24] MEDS: Piperacil/Tazobactam 3.375 GM in 0.9% Normal Saline (50mL MB+) 50 ML IV ×3 (06:23→20:13)
[2025-03-24] MEDS: Acetaminophen 650 MG/20 ML UDC 1000 MG NG ×2 (06:23→20:15)
[2025-03-24] MEDS: Heparin Injection (Vial) 5,000 UNIT/ML VIAL 5000 UNIT SC ×3 (06:23→20:15)
--- NOTE | 2025-03-24 07:13 | PN.SURG_ITS ---
Objective Data Objective Data Vital Signs: Vital Signs Temp Pulse Resp BP Pulse Ox O2 Del Method O2 Flow Rate 97.7 F L 75 24 H 116/42 L 94 Room Air 2 03/24/25 04:00 03/24/25 06:00 03/24/25 06:00 03/24/25 06:00 03/24/25 07:00 03/24/25 07:00 03/23/25 07:30 FiO2 25 03/21/25 14:52 Oxygen Flow Rate (L/min) 2 Oxygen Delivery Method Room Air Weight: 201 lb 4.513 oz Body Mass Index (BMI) 35.6 Intake & Output: Intake and Output for Last 24 Hours 03/22/25 03/23/25 03/24/25 23:59 23:59 23:59 Intake Total 5839.32 / 5878.72 3418.71 / 3448.71 360 / 360 Output Total 1421 / 1421 4050 / 4550 500 / 500 Balance 4418.32 / 4457.72 -631.29 / -1101.29 -140 / -140 Lab / Micro Data 03/24/25 04:37 03/24/25 04:37 Labs: Laboratory Results - last 24 hr 03/23/25 04:25: Phosphorus 2.3 L, Magnesium 1.9, Triglycerides 124 03/23/25 08:28: WBC 15.5 H, RBC 4.10 L, Hgb 12.0, Hct 38.2, MCV 93.2, MCH 29.3, MCHC 31.4 L, RDW Std Deviation 48.5 H, RDW Coeff of Jonnathan 14.2, Plt Count 399, MPV 10.5, Immature Gran % (Auto) 2.000 H, Neut % (Auto) 82.7 H, Lymph % (Auto) 5.4 L , [place] % (Auto) 4.9, Eos % (Auto) 4.7, Baso % (Auto) 0.3, Absolute Neuts (auto) 12.8 H, Absolute Lymphs (auto) 0.83, Nucleated RBC % 0 03/23/25 12:11: POC Glucose 141 H 03/23/25 17:54: POC Glucose 118 H 03/24/25 00:01: POC Glucose 141 H 03/24/25 04:37: WBC 10.0, RBC 3.73 L, Hgb 10.9 L, Hct 36.2 L, MCV 97.1, MCH 29.2, MCHC 30.1 L, RDW Std Deviation 53.1 H, RDW Coeff of Jonnathan 14.8 H, Plt Count 337, MPV 10.4, Immature Gran % (Auto) 1.400 H, Neut % (Auto) 79.0 H, Lymph % (Auto) 10.1 L, [place] % (Auto) 5.3, Eos % (Auto) 3.7, Baso % (Auto) 0.5, Absolute Neuts (auto) 7.9 H, Absolute Lymphs (auto) 1.01, Nucleated RBC % 0, Sodium 129 L , Potassium 5.1, Chloride 106, Carbon Dioxide 17.8 L, Anion Gap 6, BUN 17, Creatinine 0.93, Estim Creat Clear Calc 50.25, Est GFR (MDRD) Non-Af 62, BUN/Creatinine Ratio 18.6, Glucose 799 H*, Calcium 7.4 L, Phosphorus 5.3 H, Total Bilirubin 0.34, AST 15, ALT 10, Alkaline Phosphatase 49, Total Protein 4.4 L, Albumin 2.0 L, Globulin 2.4, Albumin/Globulin Ratio 0.8 L 03/24/25 05:38: POC Glucose 121 H Rhythm Strip Rhythm Strip: Sinus Rhythm Rate: 89 Ectopy: None
[2025-03-24 07:28] LABS: Anion Gap 7 (5-15); BUN 18 mg/dL (4-19); BUN/Creat Ratio 19.8 RATIO (10-20); Calcium,Total 7.6 mg/dL (7.6-11.0); Carbon Dioxide 21.2 mmol/L (21.0-32.0); Chloride 113 mmol/L (98-108); Estimated Creatinine Clearance 52.40 ml/min (50-250); Glucose 135 mg/dL (70-99); Potassium 3.4 mmol/L (3.3-5.1)
--- NOTE | 2025-03-24 07:30 | PN.SURG_ITS ---
Subjective Subjective Patient does not report any nausea. She was doing well overnight. She is off of her pressors. Objective Data Objective Data Vital Signs: Vital Signs Temp Pulse Resp BP Pulse Ox O2 Del Method O2 Flow Rate 97.7 F L 75 24 H 116/42 L 94 Room Air 2 03/24/25 04:00 03/24/25 06:00 03/24/25 06:00 03/24/25 06:00 03/24/25 07:00 03/24/25 07:00 03/23/25 07:30 FiO2 25 03/21/25 14:52 Oxygen Flow Rate (L/min) 2 Oxygen Delivery Method Room Air Weight: 201 lb 4.513 oz Body Mass Index (BMI) 35.6 Intake & Output: Intake and Output for Last 24 Hours 03/22/25 03/23/25 03/24/25 23:59 23:59 23:59 Intake Total 5839.32 / 5878.72 3418.71 / 3448.71 360 / 360 Output Total 1421 / 1421 4050 / 4550 500 / 500 Balance 4418.32 / 4457.72 -631.29 / -1101.29 -140 / -140 Lab / Micro Data 03/24/25 04:37 03/24/25 05:50 Labs: Laboratory Results - last 24 hr 03/23/25 04:25: Phosphorus 2.3 L, Magnesium 1.9, Triglycerides 124 03/23/25 08:28: WBC 15.5 H, RBC 4.10 L, Hgb 12.0, Hct 38.2, MCV 93.2, MCH 29.3, MCHC 31.4 L, RDW Std Deviation 48.5 H, RDW Coeff of Jonnathan 14.2, Plt Count 399, MPV 10.5, Immature Gran % (Auto) 2.000 H, Neut % (Auto) 82.7 H, Lymph % (Auto) 5.4 L , [place] % (Auto) 4.9, Eos % (Auto) 4.7, Baso % (Auto) 0.3, Absolute Neuts (auto) 12.8 H, Absolute Lymphs (auto) 0.83, Nucleated RBC % 0 03/23/25 12:11: POC Glucose 141 H 03/23/25 17:54: POC Glucose 118 H 03/24/25 00:01: POC Glucose 141 H 12/03/25 04:37: WBC 10.0, RBC 3.73 L, Hgb 10.9 L, Hct 36.2 L, MCV 97.1, MCH 29.2, MCHC 30.1 L, RDW Std Deviation 53.1 H, RDW Coeff of Jonnathan 14.8 H, Plt Count 337, MPV 10.4, Immature Gran % (Auto) 1.400 H, Neut % (Auto) 79.0 H, Lymph % (Auto) 10.1 L, [place] % (Auto) 5.3, Eos % (Auto) 3.7, Baso % (Auto) 0.5, Absolute Neuts (auto) 7.9 H, Absolute Lymphs (auto) 1.01, Nucleated RBC % 0, Sodium 129 L , Potassium 5.1, Chloride 106, Carbon Dioxide 17.8 L, Anion Gap 6, BUN 17, Creatinine 0.93, Estim Creat Clear Calc 50.25, Est GFR (MDRD) Non-Af 62, BUN/Creatinine Ratio 18.6, Glucose 799 H*, Calcium 7.4 L, Phosphorus 5.3 H, Total Bilirubin 0.34, AST 15, ALT 10, Alkaline Phosphatase 49, Total Protein 4.4 L, Albumin 2.0 L, Globulin 2.4, Albumin/Globulin Ratio 0.8 L 03/24/25 05:38: POC Glucose 121 H 03/24/25 05:50: Sodium 141, Potassium 3.4, Chloride 113 H, Carbon Dioxide 21.2, Anion Gap 7, BUN 18, Creatinine 0.90, Estim Creat Clear Calc 52.40, Est GFR (MDRD) Non-Af 65, BUN/Creatinine Ratio 19.8, Glucose 135 H, Calcium 7.6 Rhythm Strip Rhythm Strip: Sinus Rhythm Rate: 89 Ectopy: None Physical Exam Const oriented x3 and no apparent distress Resp normal respiratory effort GI soft to palpation and non-tender Assessment & Plan Assessment/Plan (1) Bowel perforation: PLAN: The patient is off pressors now. She is making urine. Her white count is decreasing. She has stool in the colostomy bag as well as gas. Her abdomen is nondistended. I will remove her NG today and start some clear liquids. Will discuss with ICU team about moving her to the floor today. Drain is serosanguineous. Zoltan Calvin MD Pager: [facility] [address] [place] [address], [address] [place] [address] Office:
--- NOTE | 2025-03-24 10:23 | WOUNDNOTE ---
Pt up with therapy at this time. plan to change ostomy appliance today with patient. teaching booklet given to patient as well. pt is hopeful to get to go to TCU prior to discharge home for more ostomy teaching and therapy for strengthening.
[2025-03-24] MEDS: Pantoprazole Sodium 40 MG in 0.9% Normal Saline (100mL MB+) 100 ML 330 MG IV (10:26)
--- NOTE | 2025-03-24 11:34 | CASEMGMT ---
Addendum entered by Edvin Gusman 03/24/25 14:32: TCU states that they can accept the pt and will start precert once appropriate. RN CM to the pt's room and updated the pt at this time. Pt voices appreciation and denies further questions or concerns at this time. CM to continue to follow. Original Note: RN NEGRO discussed DC planning with the pt during ICU rounds. Pt states that she still prefers the [facility] TCU at the time of DC. Per rounds, pt is stable to leave the ICU today. Notified TCU office coordinator who is looking into the referral now. CM to follow.
[2025-03-24 12:12] LABS: Triglycerides 144 mg/dL
--- NOTE | 2025-03-24 13:34 | PCM.PN.HOSP ---
Reason for Visit Chief Complaint: Abdominal pain Subjective Subjective Patient looks much better today. States she still feeling kind of fatigued. Is not sleeping well at night. NG tube is out and she is very pleased that she is able to eat some. Denies any significant pain at this time. Is having some ostomy output. Objective Data Objective Data Vital Signs: Vital Signs Temp Pulse Resp BP Pulse Ox O2 Del Method O2 Flow Rate 97.9 F 78 21 H 129/64 H 98 Room Air 2 03/24/25 12:00 03/24/25 12:00 03/24/25 12:00 03/24/25 12:00 03/24/25 12:00 03/24/25 12:00 03/23/25 07:30 FiO2 25 03/21/25 14:52 Oxygen Flow Rate (L/min) 2 Oxygen Delivery Method Room Air Weight: 91.3 kg Body Mass Index (BMI) 35.6 Intake & Output: Intake and Output for Last 24 Hours 03/22/25 03/23/25 03/24/25 23:59 23:59 23:59 Intake Total 5839.32 / 5878.72 3418.71 / 3448.71 750 / 750 Output Total 1421 / 1421 4050 / 4550 700 / 700 Balance 4418.32 / 4457.72 -631.29 / -1101.29 50 / 50 Lab / Micro Data 03/24/25 04:37 03/24/25 05:50 Labs: Laboratory Results - last 24 hr 03/23/25 04:25: Triglycerides 124 03/23/25 17:54: POC Glucose 118 H 03/24/25 00:01: POC Glucose 141 H 03/24/25 04:37: WBC 10.0, RBC 3.73 L, Hgb 10.9 L, Hct 36.2 L, MCV 97.1, MCH 29.2, MCHC 30.1 L, RDW Std Deviation 53.1 H, RDW Coeff of Jonnathan 14.8 H, Plt Count 337, MPV 10.4, Immature Gran % (Auto) 1.400 H, Neut % (Auto) 79.0 H, Lymph % (Auto) 10.1 L, [place] % (Auto) 5.3, Eos % (Auto) 3.7, Baso % (Auto) 0.5, Absolute Neuts (auto) 7.9 H, Absolute Lymphs (auto) 1.01, Nucleated RBC % 0, Sodium 129 L, Potassium 5.1, Chloride 106, Carbon Dioxide 17.8 L, Anion Gap 6, BUN 17, Creatinine 0.93, Estim Creat Clear Calc 50.25, Est GFR (MDRD) Non-Af 62, BUN/Creatinine Ratio 18.6, Glucose 799 H*, Calcium 7.4 L, Phosphorus 5.3 H, Total Bilirubin 0.34, AST 15, ALT 10, Alkaline Phosphatase 49, Total Protein 4.4 L, Albumin 2.0 L, Globulin 2.4, Albumin/Globulin Ratio 0.8 L 03/24/25 05:38: POC Glucose 121 H 03/24/25 05:50: Sodium 141, Potassium 3.4, Chloride 113 H, Carbon Dioxide 21.2, Anion Gap 7, BUN 18, Creatinine 0.90, Estim Creat Clear Calc 52.40, Est GFR (MDRD) Non-Af 65, BUN/Creatinine Ratio 19.8, Glucose 135 H, Calcium 7.6, Triglycerides 144 03/24/25 11:55: POC Glucose 129 H Rhythm Strip Rhythm Strip: Sinus Rhythm Rate: 89 Ectopy: None Physical Exam Const alert, oriented x3 and no apparent distress Constitutional Narrative: Obese, elderly, white female, sitting up in chair at the bedside eating breakfast and watching television, appears comfortable, does not look toxic HEENT normocephalic and head/scalp atraumatic HEENT Narrative: NG tube has been removed, mucous membranes are moist Resp normal respiratory effort, no retractions, no use of accessory muscles and clear to auscultation bilaterally Auscultation: Negative for crackles, rhonchi or wheezes Cardio regular rate, regular rhythm, S1 normal heart sound, S2 normal heart sound, no murmurs, no rub, no gallops and no clicks Rate: regular rate Rhythm: abnormal rhythm ectopic beats GI GI Narrative: Bowel sounds are mildly hypoactive but present, abdomen is soft to palpation, ostomy does have some output, mildly tender Extremity no clubbing, cyanosis or edema Extremity Narrative: Pedal pulses are 2+, right upper extremity PICC dressing is clean dry and intact Neuro moves all extremities and no focal motor deficits Speech: speech normal Psych Psych Narrative: Affect is still mildly flat but improving-appropriate for the current situation normal, eye contact is good, patient interacts appropriately, very pleasant Assessment & Plan Assessment/Plan (1) Bowel perforation: (2) Hypotension: (3) KENYETTA (acute kidney injury): (4) Acute tubular necrosis: PLAN: Plan Acute bowel perforation status post exploratory laparotomy with washout and TRACEY drain placement and creation of colostomy - Postop day 3 from colostomy creation and postop day 9 from ex lap - Tyrell-Aldana drain with serosanguineous drainage - Patient started on clear liquid diet - Await recovery of bowel function - Continue NG tube - Continue IV antibiotics - TPN per general surgery nutrition Postoperative ileus -Seems to be resolving - Continue TPN - Watch for recovery of bowel function - Patient does have some minimal output from her ostomy however bowel sounds remain hypoactive Acute postoperative hypotension -Resolved - Okay to transfer out of ICU she has remained stable for 24 hours off pressors KENYETTA on CKD stage II secondary to ATN -KENYETTA has resolved Hypokalemia -Resolved Leukocytosis -Resolved Non-anion gap metabolic acidosis -Resolved Hyperglycemia with history of DM-2 - Likely reactive and improving with decrease stress response - Fasting sugar this morning was 135 - Add SSI -AC and at bedtime since no started on diet - Patient is on Farxiga at baseline but this is for cardiomyopathy - Restart tomorrow as long as clear liquid diet goes accordingly Chronic HFrEF secondary to nonischemic cardiomyopathy - EF has improved from 10% April 10 to 40% in October 2024 - Home medications are on hold-anticipate being able to restart some medications tomorrow History of gout - Home allopurinol on hold--> restart possibly tomorrow Neuropathy - Hold home gabapentin and restart as able--> possibly tomorrow Hypothyroidism - Levothyroxine 200 mcg every 3 days -Will plan to transition back to oral levothyroxine as long as diet is going well History of rheumatoid arthritis - Hold Plaquenil and restart as able-anticipate restarting tomorrow Obesity - BMI is 35.7 - Complicates treatment, prognosis, outcomes - Recommend weight loss DVT prophylaxis - SCDs - Heparin SQ every 8 CODE STATUS -Full code has been verified Charges/Coding Visit Charges Inpatient E&M: 60187 Subs Hosp L2
--- NOTE | 2025-03-24 14:26 | WOUNDNOTE ---
In to do more teaching with patient. demonstrated how to empty the appliance and clean the end of the pouch. had emptied 150cc's liquid dark brown stool. removed the appliance. stoma is pink except for a area of slough to the superior end of the stoma. peristomal skin is intact. cleansed skin with warm water. pat dry. placed a paste ring around the stoma. cut flange to size. stoma is measuring approx 1 3/4. placed flange around stoma and sealed the pouch. discussed each step with patient as the appliance was being changed. pt asked questions about supplies and if they were covered by insurance. educated patient that some insurances have a co-pay but it typically under $25/mo. insurances cover around 20 appliances a month. pt very appreciative of education and is aware the plan will be to change the appliances twice a week and will continue teaching with patient. If patient is able to go to TCU at discharge, this nurse will be able to work with patient there as well.
[2025-03-24] MEDS: TPN - Clinimix E 8%-14% Soln 2,000 ML with Multivitamins 10 ML, Trace Elements 1 ML, Fo... 42 ML IV (16:24)
[2025-03-24] MEDS: HYDROmorphone 0.5 MG/0.5 ML SYRINGE 0.25 MG IV (16:29)
[2025-03-24] MEDS: MELATONIN 3 MG TABLET PO (20:15)
[2025-03-25] VITALS (7 sets, daily range): BP systolic 104–128; BP diastolic 51–54; PULSE 65–82; RESP 18; TEMP 36.3–36.9; O2SAT 95–99
[2025-03-25] MEDS: Heparin Injection (Vial) 5,000 UNIT/ML VIAL 5000 UNIT SC ×3 (05:19→20:43)
[2025-03-25] MEDS: Piperacil/Tazobactam 3.375 GM in 0.9% Normal Saline (50mL MB+) 50 ML IV (05:19)
[2025-03-25 05:36] LABS: Hematocrit 34.9 % (37-47); Hemoglobin 10.9 g/dL (12.0-15.0); Mean Corp Hgb Conc 31.2 g/dL (32-36); Mean Corpuscular Volume 93.3 fL (81-99); Mean Platelet Vol. 10.1 fl (6.2-12.0); Platelet Count 338 K/mm3 (150-450); RBC Distribution Width CV 14.5 % (11.6-14.6); RBC Distribution Width SD 49.9 fl (35.1-43.9); Red Blood Count 3.74 M/mm3 (4.2-5.4); White Blood Count 7.8 K/mm3 (4.4-11.0)
[2025-03-25 05:59] LABS: Anion Gap 7 (5-15); BUN 16 mg/dL (4-19); BUN/Creat Ratio 21.7 RATIO (10-20); Calcium,Total 7.6 mg/dL (7.6-11.0); Carbon Dioxide 20.8 mmol/L (21.0-32.0); Chloride 111 mmol/L (98-108); Estimated Creatinine Clearance 58.95 ml/min (50-250); Glucose 122 mg/dL (70-99); Magnesium 2.1 mg/dL (1.5-2.2); Potassium 3.4 mmol/L (3.3-5.1)
--- NOTE | 2025-03-25 07:24 | PCM.PN.HOSP ---
Reason for Visit Chief Complaint: Abdominal pain Subjective Subjective Patient states she is feeling okay this morning. Had a little nausea yesterday with eating but overall did okay. Denies any significant breathing problems however she is on 2 L currently. Blood pressures have remained stable. No significant belly pain or nausea at this time. Objective Data Objective Data Vital Signs: Vital Signs Temp Pulse Resp BP Pulse Ox O2 Del Method O2 Flow Rate 97.9 F 65 27 H 125/69 H 97 Room Air 2 03/24/25 23:00 03/25/25 04:00 03/24/25 23:00 03/24/25 23:00 03/24/25 23:00 03/25/25 01:58 03/24/25 23:00 FiO2 25 03/21/25 14:52 Oxygen Flow Rate (L/min) 2 Oxygen Delivery Method Room Air Weight: 91.3 kg Body Mass Index (BMI) 35.6 Intake & Output: Intake and Output for Last 24 Hours 03/23/25 03/24/25 03/25/25 23:59 23:59 23:59 Intake Total 3418.71 / 3448.71 1814.3 / 1814.3 300 / 300 Output Total 4050 / 4550 1550 / 2000 450 / 450 Balance -631.29 / -1101.29 264.3 / -185.7 -150 / -150 Lab / Micro Data 03/25/25 05:30 03/25/25 05:30 Labs: Laboratory Results - last 24 hr 03/24/25 05:50: Sodium 141, Potassium 3.4, Chloride 113 H, Carbon Dioxide 21.2, Anion Gap 7, BUN 18, Creatinine 0.90, Estim Creat Clear Calc 52.40, Est GFR (MDRD) Non-Af 65, BUN/Creatinine Ratio 19.8, Glucose 135 H, Calcium 7.6, Triglycerides 144 03/24/25 11:55: POC Glucose 129 H 03/24/25 17:51: POC Glucose 120 H 03/24/25 23:21: POC Glucose 125 H 03/25/25 05:18: POC Glucose 115 H 03/25/25 05:30: WBC 7.8, RBC 3.74 L, Hgb 10.9 L, Hct 34.9 L, MCV 93.3, MCH 29.1, MCHC 31.2 L, RDW Std Deviation 49.9 H, RDW Coeff of Jonnathan 14.5, Plt Count 338, MPV 10.1, Sodium 139, Potassium 3.4, Chloride 111 H, Carbon Dioxide 20.8 L, Anion Gap 7, BUN 16, Creatinine 0.74, Estim Creat Clear Calc 58.95, Est GFR (MDRD) Non-Af 82, BUN/Creatinine Ratio 21.7 H, Glucose 122 H, Calcium 7.6, Phosphorus 2.4 L, Magnesium 2.1 Rhythm Strip Rhythm Strip: Sinus Rhythm Rate: 89 Ectopy: None Physical Exam Const alert, oriented x3 and no apparent distress Constitutional Narrative: Obese, elderly, white female, sitting up in bed watching television, appears comfortable, does not look toxic HEENT normocephalic and head/scalp atraumatic HEENT Narrative: Mallampati 3, no thrush Resp normal respiratory effort, no retractions, no use of accessory muscles and clear to auscultation bilaterally Auscultation: Negative for crackles, rhonchi or wheezes Cardio regular rate, regular rhythm, S1 normal heart sound, S2 normal heart sound, no murmurs, no rub, no gallops and no clicks GI GI Narrative: Mild diffuse tenderness, significant amount of air in colostomy bag, stool in colostomy bag, bowel sounds are now normal active, abdomen is soft, ABD is clean dry and intact Extremity no clubbing, cyanosis or edema Extremity Narrative: Pedal pulses are 2+, right upper extremity PICC dressing is clean dry and intact Neuro moves all extremities and no focal motor deficits Speech: speech normal Psych affect normal Psych Narrative: eye contact is good, patient interacts appropriately, very pleasant Assessment & Plan Assessment/Plan (1) Bowel perforation: (2) Hypotension: (3) KENYETTA (acute kidney injury): (4) Acute tubular necrosis: PLAN: Plan Acute bowel perforation status post exploratory laparotomy with washout and TRACEY drain placement and creation of colostomy - Postop day 4 from colostomy creation and postop day 10 from ex lap - Tolerated clear liquid diet without significant issues and diet advanced to full liquid - Continue IV antibiotics per general surgery - TPN per general surgery nutrition Postoperative ileus - Resolved CKD stage II - Avoid hypotension, hypovolemia and nephrotoxins Hyperglycemia with history of DM-2 - Likely reactive and improving with decrease stress response - Fasting sugar this morning was 122 - Discontinue SSI and Accu-Cheks - Restart Farxiga Chronic HFrEF secondary to nonischemic cardiomyopathy - EF has improved from 10% April 10 to 40% in October 2024 - Restart home Coreg but continue to hold Aldactone and Entresto - Will give Lasix IV push x 1 dose 20 mg if she is starting to have just a little bit of edema History of gout - Restart home allopurinol Neuropathy - Restart home gabapentin Hypothyroidism - Restart home levothyroxine History of rheumatoid arthritis - Restart home Plaquenil Obesity - BMI is 35.7 - Complicates treatment, prognosis, outcomes - Recommend weight loss DVT prophylaxis - SCDs - Heparin SQ every 8 CODE STATUS -Full code has been verified Charges/Coding Visit Charges Inpatient E&M: 01554 Subs Hosp L2
--- NOTE | 2025-03-25 07:53 | PCM.PN.SRG ---
Subjective Subjective Patient seems to be doing well. She has gas in her colostomy bag. She does report some mild nausea with clears yesterday. She is not having any abdominal pain. Objective Data Objective Data Vital Signs: Vital Signs Temp Pulse Resp BP Pulse Ox O2 Del Method O2 Flow Rate 97.9 F 65 27 H 125/69 H 97 Room Air 2 03/24/25 23:00 03/25/25 04:00 03/24/25 23:00 03/24/25 23:00 03/24/25 23:00 03/25/25 01:58 03/24/25 23:00 FiO2 25 03/21/25 14:52 Oxygen Flow Rate (L/min) 2 Oxygen Delivery Method Room Air Weight: 201 lb 4.513 oz Body Mass Index (BMI) 35.6 Intake & Output: Intake and Output for Last 24 Hours 03/23/25 03/24/25 03/25/25 23:59 23:59 23:59 Intake Total 3418.71 / 3448.71 1814.3 / 1814.3 300 / 300 Output Total 4050 / 4550 1550 / 2000 450 / 450 Balance -631.29 / -1101.29 264.3 / -185.7 -150 / -150 Lab / Micro Data 03/25/25 05:30 03/25/25 05:30 Labs: Laboratory Results - last 24 hr 03/24/25 05:50: Triglycerides 144 03/24/25 11:55: POC Glucose 129 H 03/24/25 17:51: POC Glucose 120 H 03/24/25 23:21: POC Glucose 125 H 03/25/25 05:18: POC Glucose 115 H 03/25/25 05:30: WBC 7.8, RBC 3.74 L, Hgb 10.9 L, Hct 34.9 L, MCV 93.3, MCH 29.1, MCHC 31.2 L, RDW Std Deviation 49.9 H, RDW Coeff of Jonnathan 14.5, Plt Count 338, MPV 10.1, Sodium 139, Potassium 3.4, Chloride 111 H, Carbon Dioxide 20.8 L, Anion Gap 7, BUN 16, Creatinine 0.74, Estim Creat Clear Calc 58.95, Est GFR (MDRD) Non-Af 82, BUN/Creatinine Ratio 21.7 H, Glucose 122 H, Calcium 7.6, Phosphorus 2.4 L, Magnesium 2.1 Rhythm Strip Rhythm Strip: Sinus Rhythm Rate: 89 Ectopy: None Physical Exam Const oriented x3 and no apparent distress Resp normal respiratory effort GI soft to palpation and non-tender Assessment & Plan Assessment/Plan (1) Bowel perforation: PLAN: The patient seems to be doing well this morning. She did have a little bit of nausea with clears yesterday so I will keep her on clears and wait for the nausea to resolve. Hopeful to advance her to fulls later today or tomorrow. YULISA Hawkins. Transfer orders from the ICU have been written but there are no rooms on the floor. I will stop her antibiotics as her white count is normalized. Her drain is still serosanguineous. Zoltan Calvin MD Pager: [facility] [address] [place] [address], [address] [place] [address] Office:
[2025-03-25] MEDS: Furosemide 20 MG/2 ML VIAL IV (09:47)
[2025-03-25] MEDS: Potassium Phosphate 15 MM in 0.9% Normal Saline (250mL Bag) 250 ML 125 MM IV (09:49)
[2025-03-25] MEDS: MELATONIN 3 MG TABLET PO (20:45)
[2025-03-26 02:57] VITALS: BP 108/39; PULSE 66; RESP 18; TEMP 36.3; O2SAT 93
[2025-03-26] MEDS: Heparin Injection (Vial) 5,000 UNIT/ML VIAL 5000 UNIT SC ×3 (06:51→20:36)
--- NOTE | 2025-03-26 06:57 | PCM.PN.HOSP ---
Reason for Visit Chief Complaint: Abdominal pain Subjective Subjective No significant issues overnight. No nausea with diet yesterday. Please that she has been advanced to regular food today. Ostomy output has been good and pain has been minimal in the abdomen. Patient does states she feels a little bit puffy and we have explained that that was likely from all the IV fluid she received including her TPN while she was hospitalized. I will give her 1 dose of IV Lasix 20 mg today for this. Objective Data Objective Data Vital Signs: Vital Signs Temp Pulse Resp BP Pulse Ox O2 Del Method O2 Flow Rate 97.4 F L 66 18 108/39 L 93 Room Air 1 03/26/25 02:57 03/26/25 02:57 03/26/25 02:57 03/26/25 02:57 03/26/25 02:57 03/26/25 02:57 03/25/25 14:07 FiO2 25 03/21/25 14:52 Oxygen Flow Rate (L/min) 1 Oxygen Delivery Method Room Air Weight: 91.3 kg Body Mass Index (BMI) 35.6 Intake & Output: Intake and Output for Last 24 Hours 03/24/25 03/25/25 03/26/25 23:59 23:59 23:59 Intake Total 1814.3 / 1814.3 2049.4 / 2049.4 300 / 300 Output Total 1550 / 2000 3770 / 3770 Balance 264.3 / -185.7 -1720.6 / -1720.6 300 / 300 Lab / Micro Data 03/25/25 05:30 03/26/25 06:25 Labs: Laboratory Results - last 24 hr 03/25/25 11:21: POC Glucose 128 H Rhythm Strip Rhythm Strip: Sinus Rhythm Rate: 89 Ectopy: None Physical Exam Const alert, oriented x3 and no apparent distress Constitutional Narrative: Obese, elderly, white female, sitting up in bed watching television, has just finished breakfast, very pleasant, appears comfortable, does not look toxic HEENT normocephalic and head/scalp atraumatic HEENT Narrative: Mallampati 2, no thrush Resp normal respiratory effort, no retractions, no use of accessory muscles and clear to auscultation bilaterally Auscultation: Negative for crackles, rhonchi or wheezes Cardio regular rate, regular rhythm, S1 normal heart sound, S2 normal heart sound, no murmurs, no rub, no gallops and no clicks GI GI Narrative: Minimally tender, ABD is clean dry and intact, ostomy output is good, drain has been removed, bowel sounds are normal active, no significant tenderness, soft Extremity no clubbing, cyanosis or edema Extremity Narrative: Pedal pulses are 2+, right upper extremity PICC dressing is clean dry and intact Neuro oriented x3, moves all extremities and no focal motor deficits Neuro Narrative: Patient generally weak due to acute illness Speech: speech normal Psych affect normal Psych Narrative: eye contact is good, patient interacts appropriately, very pleasant Assessment & Plan Assessment/Plan (1) Bowel perforation: (2) Hypotension: (3) KENYETTA (acute kidney injury): (4) Acute tubular necrosis: PLAN: Plan Acute bowel perforation status post exploratory laparotomy with washout and TRACEY drain placement and creation of colostomy - Postop day 5 from colostomy creation and postop day 11 from ex lap - Tolerated clear liquid diet without significant issues and diet advanced to full liquid - Continue IV antibiotics per general surgery - TPN per general surgery nutrition CKD stage II - Avoid hypotension, hypovolemia and nephrotoxins DM-2 - Blood sugars much improved with decrease stress response - Continue home Farxiga - No need for ongoing Accu-Cheks Chronic HFrEF secondary to nonischemic cardiomyopathy - EF has improved from 10% April 10 to 40% in October 2024 - Continue home Coreg - Lasix 20 mg IV push x 1 dose today for edema - Continue to hold home Entresto and Aldactone with reinitiation at discharge as long as blood pressures are stable may need to gradually restart if blood pressures are still on the soft side History of gout - Continue home allopurinol Neuropathy - Continue home gabapentin Hypothyroidism - Continue home levothyroxine History of rheumatoid arthritis - Continue home Plaquenil Obesity - BMI is 35.7 - Complicates treatment, prognosis, outcomes - Recommend weight loss DVT prophylaxis - SCDs - Heparin SQ every 8 CODE STATUS -Full code has been verified Disposition: Patient medically stable and doing well. No ongoing acute medical needs at this time. Will sign off. Discussed with general surgery- and he is aware to reconsult if needed. Charges/Coding Visit Charges Inpatient E&M: 06142 Subs Hosp L2
[2025-03-26 07:51] LABS: Anion Gap 9 (5-15); BUN 18 mg/dL (4-19); BUN/Creat Ratio 22.4 RATIO (10-20); Calcium,Total 8.2 mg/dL (7.6-11.0); Carbon Dioxide 23.9 mmol/L (21.0-32.0); Chloride 109 mmol/L (98-108); Estimated Creatinine Clearance 58.22 ml/min (50-250); Glucose 79 mg/dL (70-99); Magnesium 2.1 mg/dL (1.5-2.2); Potassium 3.6 mmol/L (3.3-5.1)
[2025-03-26 07:55] VITALS: BP 119/60; PULSE 64; RESP 15; TEMP 36.5; O2SAT 95
[2025-03-26 08:36] VITALS: O2SAT 93
--- NOTE | 2025-03-26 09:02 | PN.SURG_ITS ---
Subjective Subjective Patient reports tolerating full liquids. She is having bowel output from her colostomy. She is not complaining of abdominal pain. Objective Data Objective Data Vital Signs: Vital Signs Temp Pulse Resp BP Pulse Ox O2 Del Method O2 Flow Rate 97.7 F L 64 15 119/60 93 Room Air 1 03/26/25 07:55 03/26/25 07:55 03/26/25 07:55 03/26/25 07:55 03/26/25 08:36 03/26/25 08:36 03/25/25 14:07 FiO2 03/21/25 14:52 Oxygen Flow Rate (L/min) 1 Oxygen Delivery Method Room Air Weight: 201 lb 4.513 oz Body Mass Index (BMI) 35.6 Intake & Output: Intake and Output for Last 24 Hours 03/24/25 03/25/25 03/26/25 23:59 23:59 23:59 Intake Total 1814.3 / 1814.3 2049.4 / 2049.4 300 / 300 Output Total 1550 / 2000 3770 / 3770 Balance 264.3 / -185.7 -1720.6 / -1720.6 300 / 300 Lab / Micro Data 03/25/25 05:30 03/26/25 06:25 Labs: Laboratory Results - last 24 hr 03/25/25 11:21: POC Glucose 128 H 03/26/25 06:25: Sodium 142, Potassium 3.6, Chloride 109 H, Carbon Dioxide 23.9, Anion Gap 9, BUN 18, Creatinine 0.81, Estim Creat Clear Calc 58.22, Est GFR (MDRD) Non-Af 73, BUN/Creatinine Ratio 22.4 H, Glucose 79, Calcium 8.2, Phosphorus 3.0, Magnesium 2.1 Rhythm Strip Rhythm Strip: Sinus Rhythm Rate: 89 Ectopy: None Physical Exam Const oriented x3 and no apparent distress Resp normal respiratory effort and clear to auscultation bilaterally Cardio regular rate and regular rhythm GI soft to palpation and non-tender Assessment & Plan Assessment/Plan (1) Bowel perforation: PLAN: Patient seems to be doing well this morning. She tolerated full liquids and I will advance her to a regular diet. TPN has been stopped. She was given a small dose of Lasix yesterday. I will resume her spironolactone on discharge. PT OT has been seeing her. Discharge planning. Plan would be to remove the drain tomorrow as long as she tolerates regular diet she will be okay for discharge. She will likely need extended-care facility. She seems very weak. Await PT/OT input on DC planning Zoltan Calvin MD Pager: [facility] [address] [place] [address], [address] [place] [address] Office:
[2025-03-26] MEDS: 0.9% Saline Lock 10 ML Syringe IV ×3 (10:08→20:34)
--- NOTE | 2025-03-26 10:10 | CASEMGMT ---
Addendum entered by Danielle Hook 03/26/25 14:48: Social Work Pt was approved for TCU, can go on the weekend. SW let the pt know that pt's insurance approved her to go to TCU this weekend. Pt will let her son know. SW also updated physician. Green sheet placed on chart in anticipation of d/c to TCU this weekend. CARSON Garcia Addendum entered by Danielle Hook 03/26/25 13:56: Social Work SW spoke w/pt, let her know the precert process was started for TCU. SW let pt know will keep her updated. Green sheet will be placed on chart in antipcation of d/c to TCU this weekend, as long as precert is attained. The green sheet reflects this. CARSON Garcia Original Note: Social Work As per the physician, pt will be ready for d/c this weekend. SW asked Kym in TCU to start precert. CARSON Garcia
[2025-03-26 12:52] VITALS: BP 97/46; PULSE 60; RESP 14; TEMP 36.5; O2SAT 97
[2025-03-26 14:05] VITALS: BP 95/47; PULSE 58; RESP 15
[2025-03-26] MEDS: Furosemide 20 MG/2 ML VIAL IV (16:42)
[2025-03-26 20:16] VITALS: BP 115/58; PULSE 64; RESP 16; TEMP 36.6; O2SAT 96
[2025-03-26] MEDS: MELATONIN 3 MG TABLET PO (20:38)
[2025-03-27] MEDS: 0.9% Saline Lock 10 ML Syringe IV (03:43)
[2025-03-27 04:00] VITALS: BP 127/56; PULSE 67; RESP 18; TEMP 36.5; O2SAT 95
[2025-03-27 04:56] LABS: Hematocrit 36.5 % (37-47); Hemoglobin 11.4 g/dL (12.0-15.0); Immature Granulocytes Count 0.180 X10^3/uL (0.0-0.0); Mean Corp Hgb Conc 31.2 g/dL (32-36); Mean Corpuscular Volume 93.4 fL (81-99); Mean Platelet Vol. 11.0 fl (6.2-12.0); NRBC Flagged by Analyzer 0 % (0-5); Platelet Count 362 K/mm3 (150-450); RBC Distribution Width CV 14.5 % (11.6-14.6); RBC Distribution Width SD 49.6 fl (35.1-43.9); Red Blood Count 3.91 M/mm3 (4.2-5.4); White Blood Count 6.5 K/mm3 (4.4-11.0)
[2025-03-27 05:30] LABS: Anion Gap 10 (5-15); BUN 17 mg/dL (4-19); BUN/Creat Ratio 19.6 RATIO (10-20); Calcium,Total 8.3 mg/dL (7.6-11.0); Carbon Dioxide 23.5 mmol/L (21.0-32.0); Chloride 107 mmol/L (98-108); Estimated Creatinine Clearance 54.21 ml/min (50-250); Glucose 78 mg/dL (70-99); Magnesium 2.3 mg/dL (1.5-2.2); Potassium 3.5 mmol/L (3.3-5.1)
[2025-03-27] MEDS: Heparin Injection (Vial) 5,000 UNIT/ML VIAL 5000 UNIT SC ×2 (06:11→13:32)
[2025-03-27 08:32] VITALS: BP 136/64; PULSE 69; RESP 18; TEMP 36.6; O2SAT 96
[2025-03-27 08:40] VITALS: O2SAT 96
--- NOTE | 2025-03-27 09:01 | PCM.PN.SRG ---
Subjective Subjective The patient is tolerating a diet. Her pain is well-controlled. She is having ostomy output. Objective Data Objective Data Vital Signs: Vital Signs Temp Pulse Resp BP Pulse Ox O2 Del Method O2 Flow Rate 97.9 F 69 18 136/64 H 96 Room Air 1 03/27/25 08:32 03/27/25 08:32 03/27/25 08:32 03/27/25 08:32 03/27/25 08:32 03/27/25 08:53 03/25/25 14:07 FiO2 03/21/25 14:52 Oxygen Flow Rate (L/min) 1 Oxygen Delivery Method Room Air Weight: 189 lb 9.561 oz Body Mass Index (BMI) 35.6 Intake & Output: Intake and Output for Last 24 Hours 03/25/25 03/26/25 03/27/25 23:59 23:59 23:59 Intake Total 2049.4 / 2049.4 900 / 900 100 / 100 Output Total 3770 / 3770 153 / 153 Balance -1720.6 / -1720.6 872 / 872 -53 / -53 Lab / Micro Data 03/27/25 03:56 03/27/25 03:56 Labs: Laboratory Results - last 24 hr 03/27/25 03:56: WBC 6.5, RBC 3.91 L, Hgb 11.4 L, Hct 36.5 L, MCV 93.4, MCH 29.2, MCHC 31.2 L, RDW Std Deviation 49.6 H, RDW Coeff of Jonnathan 14.5, Plt Count 362, MPV 11.0, Immature Gran % (Auto) 2.800 H, Neut % (Auto) 65.1, Lymph % (Auto) 19.3, [place] % (Auto) 7.1, Eos % (Auto) 4.5, Baso % (Auto) 1.2 H, Absolute Neuts (auto) 4.2, Absolute Lymphs (auto) 1.25, Nucleated RBC % 0, Sodium 140, Potassium 3.5, Chloride 107, Carbon Dioxide 23.5, Anion Gap 10, BUN 17, Creatinine 0.87, Estim Creat Clear Calc 54.21, Est GFR (MDRD) Non-Af 67, BUN/Creatinine Ratio 19.6, Glucose 78, Calcium 8.3, Magnesium 2.3 H Rhythm Strip Rhythm Strip: Sinus Rhythm Rate: 89 Ectopy: None Physical Exam Const oriented x3 and no apparent distress Resp normal respiratory effort GI soft to palpation and non-tender Assessment & Plan Assessment/Plan (1) Bowel perforation: PLAN: The patient seems to be doing well. Transfer to the TCU today. I removed her drain. Incision is clean dry and intact and healing well Zoltan Calvin MD Pager: [facility] [address] [place] [address], [address] [place] [id number] Office:
--- NOTE | 2025-03-27 09:04 | TREXTCAR_ITS ---
Diet Diet Order/Speech Therapy: INPATIENT Hospital Diet / Speech Therapy Order(s) 03/26/25 06:52 Diet: Regular - General Type of Dietary Supplement:: 8oz Ensure Clear w/ B & L DC O2, CPAP, BIPAP needs Home O2 Discharge instructions: No Wound(s) abdomen: Wound Type: Surgical Incision mid abdomen: Wound Type: Surgical Incision Dressing Change: dry dressing right quad: Wound Type: Surgical Incision left quad: Wound Type: Surgical Incision Therapies Weight Bearing: Full weight bearing Physical Therapy: Eval and Treat Occupational Therapy: Eval and Treat Problem/Diagnosis (1) Bowel perforation: Status: Acute Code(s): K63.1 - Perforation of intestine (nontraumatic) Plan: The patient seems to be doing well. Transfer to the TCU today. I removed her drain. Incision is clean dry and intact and healing well Zoltan Calvin MD Pager: [facility] [address] [place] [address], [address] [place] [address] Office: Allergies/Procedures Done in Hospital Allergies amoxicillin Adverse Reaction (Verified 03/16/25 08:31) GI upset, Nausea and vomiting Type of Care/Length of Stay Estimated LOS: Convalescent Care Less Than 30 days Type of Care Needed: Skilled Rehab Potential: Good Prognosis: Good Additional Orders/Day of Discharge Day of Discharge: 03/27/25 Dietary and Speech Recommendations Dietitian Recommendations/Changes: 1.) Continue Full Liquid diet; will decrease ensure clear to 240mL BID. 2.) Advance PO diet as tolerated to Transitional with goal of 1600 calorie/consistent carbohydrate as needed. 3.) No order to renew TPN; d/c TPN after current bag--confirmed with MARICRUZ Ramsey. 4.) Plans for TCU at d/c. Follow Up Care Please Follow Up With: Zoltan Calvin MD When: Please call to schedule 2 week follow up appointment. [phone] Discharge Plan Admission Admit Date/Time: 03/16/25 14:41 Attending Provider: Zoltan Calvin Primary Care Provider: Mariposa Parker Consulting Providers: Kitty Figueroa; Germán Orellana Discharge Orders/Prescriptions Prescriptions: New oxycodone 5 mg Tablet 5 - 10 mg PO Q4H PRN PRN (Reason: Pain Score 4-10) Qty: 0 0RF Continued acetaminophen 500 mg tablet 500 mg PO Q6H PRN (Reason: Pain) aspirin [Adult Low Dose Aspirin] 81 mg tablet,delayed release (DR/EC) 81 mg PO QDAY Trelegy Ellipta 200-62.5-25 mcg blister with device 1 inh inhalation Q24H levothyroxine 112 mcg tablet 112 mcg PO QDAY carvedilol 6.25 mg tablet 6.25 mg PO BID Qty: 180 3RF spironolactone 25 mg tablet 25 mg PO DAILY Qty: 90 3RF gabapentin 100 MG capsule 100 mg PO BID Patient Comments: Caltrate 600 plus D 600 mg-20 mcg (800 unit) tablet,chewable 1 tab PO DAILY albuterol sulfate 90 mcg/actuation HFA aerosol inhaler 1 puff inhalation Q4H PRN (Reason: shortness of breath or wheezing) multivitamin [Daily Multi-Vitamin] Tablet 1 tab PO DAILY allopurinol 100 mg tablet 100 mg PO BID dapagliflozin propanediol [Farxiga] 10 mg tablet 10 mg PO QAM Qty: 90 3RF Entresto 49-51 mg tablet 1 tab PO BID Qty: 180 3RF Held hydroxychloroquine [Plaquenil] 200 mg tablet 200 mg PO BID Hold Instructions: hold for a few weeks Referrals / Follow Up: Mariposa Parker DO [Primary Care Provider, Family Practice] Disposition Disposition (needs filled in before D/C Order can be placed): Senior Living Facility
--- NOTE | 2025-03-27 09:21 | DS.PCM_ITS ---
Providers Date of Admission: 03/16/25 Primary Care Physician: Dr. Mariposa Parker, Consultations 03/20/25 03:10 Consult: Hospitalist Routine Consulting Provider: Germán Orellana Reason for Consult: medical management EMERGENT Consult: No Notified: Yes Date Notified: 03/20/25 Time Notified: 03:10 Method of Notification: Text 03/21/25 10:05 Consult: Onc/Wound/field sales agent Routine Comment: Reason for Consult:: new colostomy 03/22/25 13:56 Consult: Development Expert / Pulmonary Medicine Routine Consulting Provider: Intensivists/Pulmonary Med Reason for Consult: Hypotension EMERGENT Consult: No Notified: Yes Date Notified: 03/22/25 Time Notified: 13:04 Method of Notification: Text Reason For Visit: NAUSEA Diagnosis Discharge Diagnosis (1) Bowel perforation: Status: Acute Code(s): K63.1 - Perforation of intestine (nontraumatic) Plan: The patient seems to be doing well. Transfer to the TCU today. I removed her drain. Incision is clean dry and intact and healing well Zoltan Calvin MD Pager: [facility] [address] [place] [address], [address] [place] [address] Office: Medications at Discharge Home Medications gabapentin 100 mg capsule 100 mg PO BID nerve pain 04/30/15 acetaminophen 500 mg tablet 500 mg PO Q6H PRN Pain 10/20/20 albuterol sulfate 90 mcg/actuation aerosol inhaler 1 puff inhalation Q4H PRN shortness of breath or wheezing 04/16/24 calcium 600 mg (as carbonate)-vit D3 20 mcg (800 unit) chewable tablet (Caltrate plus D) 1 tab PO DAILY supplement 04/16/24 hydroxychloroquine 200 mg tablet (Plaquenil) 200 mg PO BID 04/16/24 Held on 03/27/25. Instructions: hold for a few weeks aspirin 81 mg tablet,delayed release (Adult Low Dose Aspirin) 81 mg PO QDAY 05/08/24 allopurinol 100 mg tablet 100 mg PO BID gout 07/23/24 fluticasone fur. 200 mcg-umeclid 62.5 mcg-vilant 25 mcg inhalat.powder (Trelegy Ellipta) 1 inh inhalation Q24H asthma 07/23/24 dapagliflozin propanediol 10 mg tablet (Farxiga) 10 mg PO QAM heart #90 tabs 10/16/24 levothyroxine 112 mcg tablet 112 mcg PO QDAY thyroid 11/13/24 sacubitril 49 mg-valsartan 51 mg tablet (Entresto) 1 tab PO BID #180 tabs 11/16/24 carvedilol 6.25 mg tablet 6.25 mg PO BID #180 tabs 02/10/25 spironolactone 25 mg tablet 25 mg PO DAILY CHF #90 tabs 02/10/25 multivitamin (Daily Multi-Vitamin tablet) 1 tab PO DAILY supplement 03/16/25 oxycodone 5 mg tablet 5 - 10 mg (1 - 2 x 5 mg) PO Q4H PRN PRN Pain Score 4-10 #0 tabs 03/27/25 Hospital Course Operations colectomy Procedures None Summary of Care Provided Hospital Course: Patient was admitted with free air and taken for exploration. The site of perforation was not left in place and the patient was closed. The patient was doing well for a few days and then developed stool in her drain. She was taken back for exploration and Guerrero's diversion. After this surgery she was kept in the ICU for few days and then moved back to floor. Patient was started on TPN. After the patient was tolerating a diet TPN was stopped and patient was moved to the floor. The drain was removed today. Her incision is clean dry and intact. She has stool from the colostomy. Plan for transfer to the TCU Weight / BMI Weight Weight: 189 lb 9.561 oz Body Mass Index (BMI) 35.6 ABG / Lab / Microbiology Data 03/27/25 03:56 03/27/25 03:56 Laboratory: Laboratory Results - last 24 hr 03/27/25 03:56: WBC 6.5, RBC 3.91 L, Hgb 11.4 L, Hct 36.5 L, MCV 93.4, MCH 29.2, MCHC 31.2 L, RDW Std Deviation 49.6 H, RDW Coeff of Jonnathan 14.5, Plt Count 362, MPV 11.0, Immature Gran % (Auto) 2.800 H, Neut % (Auto) 65.1, Lymph % (Auto) 19.3, [place] % (Auto) 7.1, Eos % (Auto) 4.5, Baso % (Auto) 1.2 H, Absolute Neuts (auto) 4.2, Absolute Lymphs (auto) 1.25, Nucleated RBC % 0, Sodium 140, Potassium 3.5, Chloride 107, Carbon Dioxide 23.5, Anion Gap 10, BUN 17, Creatinine 0.87, Estim Creat Clear Calc 54.21, Est GFR (MDRD) Non-Af 67, BUN/Creatinine Ratio 19.6, Glucose 78, Calcium 8.3, Magnesium 2.3 H D/C Instructions Discharge Activity: May Shower Weight Bearing Status: Weight bearing as tolerated Lifting Restrictions: 15 pounds for 6 weeks Call your doctor if your incision/area has: Continuous Slow Oozing, Sudden Increased Bleeding, Increased Pain/ Swelling, Increased Redness, Foul Smelling Discharge and Swelling at the incision site Call your doctor if you observe: Fever of 101 or Higher Cleanse incision/area with: Soap & Water DC O2, CPAP, BIPAP Needs Home O2 Discharge instructions: No Please Follow Up With: Zoltan Calvin MD When: Please call to schedule 2 week follow up appointment. [phone] Meaningful Use Info Meaningful Use Meaningful Use Diagnoses (Choose all that apply): None applicable Discharge Plan Admission Admit Date/Time: 03/16/25 14:41 Attending Provider: Zoltan Calvin Primary Care Provider: Mariposa Parker Consulting Providers: Kitty Figueroa; Germán Orellana Discharge Orders/Prescriptions Prescriptions: New oxycodone 5 mg Tablet 5 - 10 mg PO Q4H PRN PRN (Reason: Pain Score 4-10) Qty: 0 0RF Continued acetaminophen 500 mg tablet 500 mg PO Q6H PRN (Reason: Pain) aspirin [Adult Low Dose Aspirin] 81 mg tablet,delayed release (DR/EC) 81 mg PO QDAY Trelegy Ellipta 200-62.5-25 mcg blister with device 1 inh inhalation Q24H levothyroxine 112 mcg tablet 112 mcg PO QDAY carvedilol 6.25 mg tablet 6.25 mg PO BID Qty: 180 3RF spironolactone 25 mg tablet 25 mg PO DAILY Qty: 90 3RF gabapentin 100 MG capsule 100 mg PO BID Patient Comments: Caltrate 600 plus D 600 mg-20 mcg (800 unit) tablet,chewable 1 tab PO DAILY albuterol sulfate 90 mcg/actuation HFA aerosol inhaler 1 puff inhalation Q4H PRN (Reason: shortness of breath or wheezing) multivitamin [Daily Multi-Vitamin] Tablet 1 tab PO DAILY allopurinol 100 mg tablet 100 mg PO BID dapagliflozin propanediol [Farxiga] 10 mg tablet 10 mg PO QAM Qty: 90 3RF Entresto 49-51 mg tablet 1 tab PO BID Qty: 180 3RF Held hydroxychloroquine [Plaquenil] 200 mg tablet 200 mg PO BID Hold Instructions: hold for a few weeks Referrals / Follow Up: Mariposa Parker DO [Primary Care Provider, Family Practice] Disposition Disposition (needs filled in before D/C Order can be placed): Assisted Facility
--- NOTE | 2025-03-27 11:27 | NURSING ---
Report called to Suzy on TCU and she will call us back once there is a room cleaned for pt to come over.
[2025-03-27 13:35] VITALS: BP 143/60; PULSE 65; RESP 18; TEMP 36.3; O2SAT 98
--- NOTE | 2025-03-29 10:56 | WOUNDNOTE ---
late entry wound/stoma photo: abdomen
== END 2025-03-27 13:54 | DRG 329 ==
LOC: ED 11:16 → SDC 11:38 → ACINP 11:39 → SDC 15:51 → MS3 15:51 → ICU 03-22 13:55 → MS3 03-25 15:16
PROVIDERS: Internal Medicine; Physician Assistant; Surgery; Admitting Provider Surgery; Emergency Provider Emergency Medicine; PCP Family Medicine; Visit Provider Surgery
PROC: 0WJG0ZZ Inspection of Peritoneal Cavity, Open Approach (ICD-10-PCS; CPT 44202; principal; 2025-03-16 12:10)
PROC: 0D1E4Z4 Bypass Large Intestine to Cutaneous, Percutaneous Endoscopic Approach (ICD-10-PCS; CPT 44188; principal; 2025-03-21 08:00)
DX: K63.1 Perforation of intestine (nontraumatic) (principal); N17.0 Acute kidney failure with tubular necrosis; E87.21 Acute metabolic acidosis; I42.8 Other cardiomyopathies; K56.7 Ileus, unspecified; I13.0 Hypertensive heart and chronic kidney disease with heart failure and stage 1 through stage 4 chronic kidney disease, or unspecified chronic kidney disease; I50.22 Chronic systolic (congestive) heart failure; K66.8 Other specified disorders of peritoneum; M06.9 Rheumatoid arthritis, unspecified; E11.65 Type 2 diabetes mellitus with hyperglycemia; E03.9 Hypothyroidism, unspecified; Z68.32 Body mass index [BMI] 32.0-32.9, adult; E11.40 Type 2 diabetes mellitus with diabetic neuropathy, unspecified; E87.6 Hypokalemia; I95.81 Postprocedural hypotension; N18.2 Chronic kidney disease, stage 2 (mild); E11.22 Type 2 diabetes mellitus with diabetic chronic kidney disease; E86.0 Dehydration; E11.649 Type 2 diabetes mellitus with hypoglycemia without coma; I49.8 Other specified cardiac arrhythmias; R00.1 Bradycardia, unspecified; D72.829 Elevated white blood cell count, unspecified; T44.7X5A Adverse effect of beta-adrenoreceptor antagonists, initial encounter; I49.3 Ventricular premature depolarization; E66.9 Obesity, unspecified; Z53.31 Laparoscopic surgical procedure converted to open procedure; Z68.35 Body mass index [BMI] 35.0-35.9, adult; Z90.49 Acquired absence of other specified parts of digestive tract; Z90.710 Acquired absence of both cervix and uterus; Z79.82 Long term (current) use of aspirin; Z79.84 Long term (current) use of oral hypoglycemic drugs; Z79.890 Hormone replacement therapy; Z79.899 Other long term (current) drug therapy
CPT/HCPCS: 36415; 36569; 71045; 74018; 74177; 80048; 80053; 80076; 81001; 82150; 82962; 83690; 83735; 84100; 84478; 85025; 85027; 93005; 94640; 94668; 94762; 97110; 97116; 97162; 97166; 97530; 97535; 97802; 97803; 99284; Q9967; A4216; J1938; J2405

== ENCOUNTER 2025-03-27 14:13 | Inpatient (IN) | payer MEDICARE, SELFPAY ==
--- OUTSIDE RECORDS SUMMARY | 2025-03-27 14:17 | XMS RPT_ITS | CCD ---
Author Organization [facility] CliniSywv Care Team Providers Care Yacht Hand Name Role Phone Dr. Mariposa Parker DO Primary Care Provider David MALLET CUTTER-C, Haydee Attending Provider David MALLET CUTTER-C, Haydee Referring Provider David HAMILTON, Dr. Jacobs Referring Provider Dr. Reynaldo Hernandez MD Emergency Provider Dr. Christian White DO Admit Provider Unavail able Dr. Christian White DO Other Provider Unavail able Dr. Wilian Yang MD Other Provider Dr. Saulo Chávez DO Attending Provider Dr. Wilian Yang MD Attending Provider Dr. Saulo Chávez DO Other Provider Dr. Mariposa Parker DO Referring Provider [phone] Sofia Del Rio Attending Provider Sofia Del Rio Referring Provider Dr. Mel Maurer MD Attending Provider Dr. Mel Maurer MD Referring Provider Dr. Kali Ya DO Emergency Provider Arely HAMILTON, Dr. Meredith Arce Admit Provider Dr. Meredith Mcgee MD Referring Provider Dr. Meredith Mcgee MD Other Provider Dr. Christian Blevins MD Attending Provider Unavaila hieu Mcgee MD, Dr. Meredith Arce Attending Provider Felicity HAMILTON, Dr. Gonzales Other Provider Unavailable Elena PACHECO, Dr. Monge Attending Provider [phone] Elena PACHECO, Dr. Monge Primary Care Provider [phone] Elena PACHECO, Dr. Monge Referring Provider Sofia Del Rio Attending Provider Sofia Del Rio Referring Provider Trey HAMILTON, Dr. Cedeno Attending Provider David MALLET CUTTER-C, Haydee Attending Provider [phone] David MALLET CUTTER-C, Haydee Referring Provider [phone] MALYS, MARIPOSA A Primary Care Unavailable MONIQUE PUGH Attending Unavailable Elena PACHECO, Dr. Monge Primary Care Provider Sofia Del Rio Attending Provider Sofia Del Rio Referring Provider Elena PACHECO, Dr. Monge Referring Provider Erasto HAMILTON, Dr. Leal Other Provider [phone] Malys, Mariposa Primary Care Unavailable Trey, Wilian Attending Unavailable Hafsa PASofia Attending Unavail able Malys, Mariposa Primary Care Unavailable Malys, Mariposa Referring Unavailable Pereyra PASofia Attending Unavail able Malys, Mariposa Referring Unavailable Malys, Mariposa Primary Care Unavailable Sofia Del Rio M Attending Unavail able Malys, Mariposa Primary Care Unavailable Malys, Mariposa Referring Unavailable Pereyra PA, Sofia M Referring Unavail able Pererya PASofia Attending Unavail able Malys, Mariposa Primary Care Unavailable Pereyra PASofia M Referring Unavail able Hafsa PA, Sofia Coronel Attending Unavail able Malys, Mariposa Primary Care Unavailable Christian White Attending Unavailable Christian White Admitting Unavailable Malys, Mariposa Primary Care Unavailable Reynaldo Hernandez Referring Unavailable Trey, Cogswell Consulting Unavailable Christian White Consulting Unavailable Malys, Mariposa Primary Care Unavailable Trey, Wilian Attending Unavailable Trey, Wilian Attending Unavailable Malys, Mariposa Primary Care Unavailable Malys, Mariposa Primary Care Unavailable Malys, Mariposa Attending Unavailable Malys, Mariposa Referring Unavailable David, Haydee Attending Unavailable David, Haydee Referring Unavailable Malys, Mariposa Primary Care Unavailable David, Haydee Referring Unavailable Malys, Mariposa Primary Care Unavailable David, Haydee Attending Unavailable Christian White Admitting Unavailable Malys, Mariposa Primary Care Unavailable Saulo Chávez Attending Unavailable Reynaldo Hernandez Referring Unavailable Wilian Yang Consulting Unavailable Christian White Consulting Unavailable Christian Blevins Attending Unavailable Malys, Mariposa Primary Care Unavailable White, Meredith L Referring Unavailable White, Meredith L Consulting Unavailable White, Meredith L Admitting Unavailable Malys, Mariposa Attending Unavailable Malys, Mariposa Primary Care Unavailable Malys, Mariposa Referring Unavailable Pereyra PA, Sofia M Referring Unavail able Pereyra PA, Sofia M Attending Unavail able Malys, Mariposa Primary Care Unavailable Pereyra PA, Sofia M Attending Unavail able Malys, Mariposa Primary Care Unavailable Malys, Mariposa Referring Unavailable Pereyra PA, Sofia M Attending Unavail able Malys, Mariposa Primary Care Unavailable Malys, Mariposa Referring Unavailable Pereyra PA, Sofia M Referring Unavail able Pereyra PA, Sofia M Attending Unavail able Malys, Mariposa Primary Care Unavailable Malys, Mariposa Primary Care Unavailable Vellanki, Mel Referring Unavailable VellanMel fisher Attending Unavailable David, Haydee Attending Unavailable David, Haydee Referring Unavailable Malys, Mariposa Primary Care Unavailable Vellanki, Mel Consulting Unavailable Saulo Chávez Attending Unavailable Saulo Chávez Consulting Unavailable Wilian Yang Attending Unavailable Malys, Mariposa Primary Care Unavailable White, Meredith L Referring Unavailable White, Meredith L Attending Unavailable White, Meredith L Consulting Unavailable White, Meredith L Admitting Unavailable Christian Blevins Attending Unavailable Malys, Mariposa Primary Care Unavailable White, Meredith L Admitting Unavailable White, Meredith L Referring Unavailable White, Meredith L Consulting Unavailable Christian Blevins Consulting Unavailable Malys Dr. Mariposa PACHECO Primary Care Physician David MALLET CUTTER-C, Haydee Attending Physician David MALLET CUTTER-C, Haydee Referring Provider Dr. Mel Maurer MD Nurse Practitioner Dr. Mariposa Parker DO Referring Provider Sofia Del Rio Attending Physician Allergies Allergy Classification Reported Allergen(s) Allergy Type Date of Onset Reaction(s) Facility (17 sources) Amoxicillin; Translations: [AMOXICILLIN] Drug Allergy 2 GI upset, Nausea and vomiting [facility] (1 source) Amoxicillin Drug Allergy 5 [facility] Repository Medications Current Medications Medication Drug Class(es) Dates Sig (Normalized) Sig (Original) acetaminophen 500 mg oral tablet (16 sources) Start: 10-20-2020 take 1 tablet by mouth every six hours as needed for pain Acetaminophen 500 mg tablet Active 500 mg PO EVERY 6 HOURS as needed for Pain October 19, 2020 11:00pm Complies with drug therapy [id number] 200 actuat albuterol 0.09 mg/actuat metered dose inhaler (8 sources) beta2-Adrenergic Agonist Start: 04-16-2024 Albuterol Sulfate 90 mcg/actuation HFA aerosol inhaler Active 1 NMA INHALATION Q4H as needed for shortness of breath or wheezing April 16, 2024 12:00am Complies with drug therapy allopurinol 100 mg oral tablet (20 sources) Xanthine Oxidase Inhibitor Start: 07-23-2024 take 1 tablet by mouth twice daily Allopurinol 100 mg tablet Active 100 mg PO TWICE A DAY July 23, 2024 1:23pm gout Complies with drug therapy Start: 10-18-2020 End: 07-23-2024 take 2 tablets by mouth once daily Allopurinol 100 mg tablet Discontinued 200 mg PO DAILY October 17, 2020 11:00pm July 23, 2024 1:28pm gout Start: 10-18-2020 take 200 mg by mouth once susi y Allopurinol Active 200 MG PO DAILY October 18, 2020 12:00am aspirin 81 mg delayed release oral tablet (20 sources) Platelet Aggregation Inhibitor, Nonsteroidal Anti-inflammatory Drug Start: 05-08-2024 Aspirin (Adult Lo w Dose Aspirin) 81 mg tablet,delayed release (DR/EC) Active 81 mg PO daily May 08, 2024 12:00am Complies with drug therapy Start: 10-20-2020 End: 04-16-2024 take 1 tablet by mouth once daily Aspirin 81 mg tablet,delayed release (DR/EC) Discontinued 81 mg PO DAILY 1 October 19, 2020 11:00pm October 20, 2020 10:03am calcium carbonate 1500 mg / cholecalciferol 800 unt chewable tablet (20 sources) Vitamin D Start: 04-16-2024 Calcium Carbon ate-Vitamin D3 (Caltrate 600 Plus D) 600 mg-20 mcg (800 unit) tablet,chewable Active 1 {tbl} PO DAILY April 16, 2024 12:00am supplement Complies with drug therapy Start: 04-30-2015 End: 04-16-2024 Calcium Carbonate-Vitamin D3 1 EACH tablet Discontinued 1 NMA PO DAILY April 30, 2015 12:00am April 16, 2024 10:18pm Start: 04-30-2015 Calcium Carbon ate-Vitamin D3 Active 1 EACH PO DAILY April 30, 2015 1:00am carvedilol 6.25 mg oral tablet (20 sources) alpha-Adrenergic Javier, beta-Adrenergic Javier Start: 05-08-2024 End: 02-10-2025 take 1 tablet by mouth twice daily Carvedilol 6.25 mg tablet Active 6.25 mg PO TWICE A DAY 180 February 10, 2025 10:49am Complies with drug therapy Start: 04-18-2024 End: 05-08-2024 take 1 tablet by mouth twice daily Carvedilol 3.125 mg Tablet Discontinued 3.125 mg PO TWICE A DAY 60 0 April 18, 2024 12:00am May 08, 2024 9:40am dapagliflozin 10 mg oral tablet (12 sources) Sodium-Glucose Cotransporter 2 Inhibitor Start: 06-19-2024 End: 10-16-2024 take 1 tablet by mouth once daily in the morning Dapagliflozin Propanediol (Farxiga) 10 mg tablet Active 10 mg PO EVERY MORNING 90 October 16, 2024 3:32pm Complies with drug therapy Fluticasone-Umeclid in-Vilanter (5 sources) Start: 07-23-2024 Fluticasone-Umecli din-Vilanter (Trelegy Ellipta) 200-62.5-25 mcg blister with device Active 1 NMA INHALATION Q24H July 22, 2024 11:00pm Complies with drug therapy Start: 07-23-2024 Fluticasone-Um eclidin-Vilanter (Trelegy Ellipta) 200-62.5-25 mcg blister with device Active 1 NMA INHALATION Q24H July 23, 2024 12:00am gabapentin 100 mg oral capsule (16 sources) Anti-epileptic Agent Start: 04-30-2015 take 1 capsule by mouth twice daily Gabapentin 100 MG capsule Active 100 mg PO TWICE A DAY April 30, 2015 12:00am nerve pain Complies with drug therapy hydroxychloroquine sulfate 200 mg oral tablet (20 sources) Antimalarial, Antirheumatic Agent Start: 04-16-2024 take 1 tablet by mouth twice daily Hydroxychloroquine (Plaquenil) 200 mg tablet Active 200 mg PO TWICE A DAY April 16, 2024 12:00am Complies with drug therapy Start: 10-20-2020 End: 10-20-2020 take 1 tablet by mouth twice daily Hydroxychloroquine (Plaquenil) 200 mg tablet Discontinued 200 mg PO TWICE A DAY October 20, 2020 8:32am October 20, 2020 9:18am Start: 10-18-2020 End: 04-16-2024 take 1 tablet by mouth once daily Hydroxychloroquine (Plaquenil) 200 mg tablet Discontinued 200 mg PO DAILY 1 October 20, 2020 9:18am April 16, 2024 10:20pm levothyroxine sodium 0.112 mg oral tablet (20 sources) l-Thyroxine Start: 11-13-2024 take 1 tablet by mouth once daily Levothyroxine 112 mcg tablet Active 112 ug PO daily November 12, 2024 11:00pm Complies with drug therapy Start: 05-08-2024 End: 05-26-2024 Levothyroxine 100 mcg tablet Discontinued 125 ug PO DAILY May 08, 2024 9:17am May 26, 2024 12:46am thyroid Start: 04-18-2024 End: 11-13-2024 take 1 tablet by mouth once daily Levothyroxine 125 mcg Tablet Discontinued 125 ug PO DAILY@0600 30 0 April 18, 2024 12:00am November 13, 2024 2:32pm Start: 04-30-2015 End: 05-08-2024 take 1 tablet by mouth once daily Levothyroxine 100 mcg tablet Discontinued 100 ug PO DAILY October 17, 2020 11:00pm May 08, 2024 9:18am thyroid sacubitril 49 mg / valsartan 51 mg oral tablet (8 sources) Angiotensin 2 Receptor Javier Start: 11-13-2024 End: 11-16-2024 Sacubitril-Valsartan (Entresto) 49-51 mg tablet Active 1 {tbl} PO TWICE A DAY 180 November 15, 2024 11:00pm Complies with drug therapy Start: 07-23-2024 End: 11-13-2024 Sacubitril-Valsartan (Entres to) 24-26 mg tablet Discontinued 1 {tbl} PO TWICE A DAY 60 July 22, 2024 11:00pm November 13, 2024 2:59pm Start: 07-23-2024 End: 11-13-2024 Sacubitril-Valsartan (Entres to) 24-26 mg tablet Discontinued 1 {tbl} PO TWICE A DAY 60 July 23, 2024 12:00am November 13, 2024 3:59pm Start: 07-23-2024 Sacubitril-Sivan sartan (Entresto) 24-26 mg tablet Active 1 {tbl} PO TWICE A DAY 60 July 23, 2024 12:00am Start: 07-23-2024 Sacubitril-Sivan sartan (Entresto) 24-26 mg tablet Active 1 {tbl} PO TWICE A DAY 60 July 23, 2024 12:00am spironolactone 25 mg oral tablet (17 sources) Aldosterone Antagonist Start: 05-08-2024 End: 02-10-2025 take 1 tablet by mouth once daily Spironolactone 25 mg tablet Active 25 mg PO DAILY 90 February 10, 2025 10:49am Complies with drug therapy Completed/Discontinued Medications Medication Drug Class(es) Dates Sig (Normalized) Sig (Original) ascorbic acid 500 mg oral tablet (20 sources) Vitamin C Start: 10-20-2020 End: 04-16-2024 take 1 tablet by mouth once daily Ascorbic Acid (Vitamin C) 500 mg tablet Discontinued 500 mg PO DAILY October 19, 2020 11:00pm April 16, 2024 10:20pm Start: 04-30-2015 End: 10-18-2020 take 1 tablet by mouth twice daily at mealtime Ascorbic Acid (Vitamin C) (Vitamin C) 500 MG tablet Discontinued 500 mg PO TWICE DAILY WITH MEALS April 30, 2015 12:00am October 18, 2020 3:18pm azithromycin 250 mg oral tablet (8 sources) Macrolide Antimicrobial Start: 05-26-2024 End: 06-19-2024 take 1 tablet by mouth once daily Azithromycin 250 mg tablet Discontinued 250 mg PO DAILY May 26, 2024 12:00am June 19, 2024 11:26am cholecalciferol 0.025 mg oral tablet (16 sources) Vitamin D Start: 10-20-2020 End: 04-16-2024 take 1 tablet by mouth once daily Cholecalciferol (Vitamin D3) 25 mcg (1,000 unit) tablet Discontinued 25 ug PO DAILY October 19, 2020 11:00pm April 16, 2024 10:20pm clopidogrel 75 mg oral tablet (16 sources) P2Y12 Platelet Inhibitor Start: 10-20-2020 End: 11-15-2020 take 1 tablet by mouth once daily Clopidogrel (Plavix) 75 mg tablet Discontinued 75 mg PO DAILY 30 October 19, 2020 11:00pm November 15, 2020 12:13pm 120 actuat formoterol fumarate 0.005 mg/actuat / mometasone furoate 0.1 mg/actuat metered dose inhaler (1 source) Corticosteroid, beta2-Adrenergic Agonist Start: 04-16-2024 End: 07-23-2024 Mometasone-Formoter ol (Dulera) 100-5 mcg/actuation HFA aerosol inhaler Discontinued 2 NMA INHALATION TWICE A DAY April 16, 2024 12:00am July 23, 2024 1:25pm breathing furosemide 40 mg oral tablet (20 sources) Loop Diuretic Start: 04-18-2024 End: 11-13-2024 take 1 tablet by mouth once daily Furosemide 40 mg tablet Discontinued 40 mg PO DAILY 90 3 May 08, 2024 9:41am November 13, 2024 2:58pm 12 hr guaiFENesin 600 mg extended release oral tablet (8 sources) Start: 05-28-2024 End: 06-19-2024 take 2 tablets by mouth twice daily, then take 1 tablet by mouth every twelve hours Guaifenesin (Mucinex) 600 mg tablet extended release 12hr Discontinued 1200 mg PO TWICE A DAY 20 0 May 28, 2024 12:00am June 19, 2024 11:26am hydroCHLOROthiazide 25 mg / triamterene 37.5 mg oral tablet (20 sources) Potassium-sparing Diuretic, Thiazide Diuretic Start: 05-26-2024 End: 07-23-2024 Triamterene-Hydroch lorothiazid 37.5-25 mg tablet Discontinued 1 {tbl} PO DAILY May 26, 2024 12:00am July 23, 2024 1:27pm Start: 04-30-2015 End: 04-18-2024 Triamterene-Hydrochlorothiaz id 1 CAP capsule Discontinued 1 NMA PO DAILY April 30, 2015 12:00am April 18, 2024 11:07am Start: 04-30-2015 take 1 capsule by mouth once daily Triamterene-Hydrochlorothiazid Active 1 CAP PO DAILY April 30, 2015 1:00am hydrOXYzine hydrochloride 10 mg oral tablet (8 sources) Antihistamine Start: 05-26-2024 End: 06-19-2024 take 10-20 mg by mouth at bedtime Hydroxyzine Hcl 10 mg tablet Discontinued 10 - 20 mg PO AT BEDTIME May 26, 2024 12:00am June 19, 2024 11:26am ibuprofen 400 mg oral tablet (16 sources) Nonsteroidal Anti-inflammatory Drug Start: 04-30-2015 End: 10-18-2020 take 1 tablet by mouth every six hours Ibuprofen 400 MG tablet Discontinued 400 mg PO EVERY 6 HOURS April 30, 2015 12:00am October 18, 2020 3:18pm Mometasone-Formoter ol (Dulera) 100-5 mcg/actuation HFA aerosol inhaler (7 sources) Start: 04-16-2024 End: 07-23-2024 Mometasone-Formote rol (Dulera) 100-5 mcg/actuation HFA aerosol inhaler Discontinued 2 NMA INHALATION TWICE A DAY April 16, 2024 1:00am July 23, 2024 2:25pm breathing Start: 04-16-2024 End: 07-23-2024 Mometasone-Formoterol (Duler a) 100-5 mcg/actuation HFA aerosol inhaler Discontinued 2 NMA INHALATION TWICE A DAY April 16, 2024 1:00am July 23, 2024 2:25pm Start: 04-16-2024 Mometasone-For moterol (Dulera) 100-5 mcg/actuation HFA aerosol inhaler Active 2 NMA INHALATION TWICE A DAY April 16, 2024 1:00am Multivitamin (Daily Multiple Vitamin) 1 EACH tablet (16 sources) Start: 04-30-2015 End: 04-16-2024 take 1 tablet by mouth once daily Multivitamin (Daily Multiple Vitamin) 1 EACH tablet Discontinued 1 NMA PO DAILY April 30, 2015 12:00am April 16, 2024 10:20pm Start: 04-30-2015 End: 04-16-2024 take 1 tablet by mouth once daily Multivitamin (Daily Multiple Vitamin) 1 EACH tablet Discontinued 1 NMA PO DAILY April 30, 2015 1:00am April 16, 2024 11:20pm Start: 04-30-2015 take 1 tablet by wanda th once daily Multivitamin (Daily Multiple Vitamin) 1 EACH tablet Active 1 EACH PO DAILY April 30, 2015 12:00am Start: 04-30-2015 take 1 tablet by wanda th once daily Multivitamin (Daily Multiple Vitamin) 1 EACH tablet Active 1 EACH PO DAILY April 30, 2015 1:00am ondansetron 4 mg disintegrating oral tablet (8 sources) Serotonin-3 Receptor Antagonist Start: 04-16-2024 End: 07-23-2024 take 4-8 mg by mouth every six hours as needed for nausea Ondansetron 4 mg tablet,disintegrating Discontinued 4 - 8 mg PO EVERY 6 HOURS NEEDED as needed for nausea April 16, 2024 12:00am July 23, 2024 1:27pm oseltamivir 30 mg oral capsule (16 sources) Neuraminidase Inhibitor Start: 05-28-2024 End: 06-19-2024 take 1 capsule by mouth twice daily Oseltamivir 30 mg capsule Discontinued 30 mg PO TWICE A DAY June 19, 2024 11:26am June 19, 2024 11:45am microencapsulated potassium chloride 20 meq extended release oral tablet (16 sources) Start: 05-26-2024 End: 07-23-2024 take 1 tablet by mouth once daily Potassium Chloride 20 mEq tablet,ER particles/crystals Discontinued 20 meq PO DAILY May 26, 2024 12:00am July 23, 2024 1:27pm Start: 04-18-2024 End: 05-08-2024 take 1 tablet by mouth once daily Potassium Chloride 20 mEq Tablet,Er Particles/Crystals Discontinued 20 meq PO DAILY 30 0 April 18, 2024 12:00am May 08, 2024 9:43am predniSONE 20 mg oral tablet (20 sources) Start: 05-28-2024 End: 06-19-2024 take 1 tablet by mouth twice daily as needed Prednisone 20 mg tablet Discontinued 20 mg PO TWICE A DAY as needed June 19, 2024 11:26am June 19, 2024 11:45am Start: 10-20-2020 End: 04-16-2024 Prednisone 10 mg tablet Disc ontinued 10 mg PO .COMPLEX as needed for Wheezing October 19, 2020 11:00pm April 16, 2024 10:20pm 10 mg PO PRN; Start: 04-30-2015 End: 10-18-2020 take 7.5 mg by mouth once daily Prednisone 5 MG tablet Discontinued 7.5 mg PO DAILY April 30, 2015 12:00am October 18, 2020 3:18pm Start: 04-30-2015 End: 10-18-2020 take 7.5 mg by mouth once daily Prednisone Discontinued 7.5 MG PO DAILY April 30, 2015 1:00am October 18, 2020 4:18pm promethazine hydrochloride 12.5 mg oral tablet (16 sources) Phenothiazine Start: 12-16-2021 End: 04-16-2024 take 3 tablets by mouth three times daily as needed for nausea and vomiting Promethazine 12.5 mg tablet Discontinued 12.5 mg PO THREE TIMES A DAY as needed for nausea and vomiting 10 December 15, 2021 11:00pm April 16, 2024 10:20pm 3 doses during day; last dose no later than 4 hr before bedtime Problems Active Problems Problem Classification Problem Date Documented Da te Episodic/Chronic Congestive heart failure; nonhypertensive (20 sources) Symptomatic congestive heart failure; Translations: [Heart failure, unspecified] Onset: 05-05-2024 04-17-2024 Chronic Diabetes mellitus without complication (20 sources) Type 2 diabetes mellitus; Translations: [Type 2 diabetes mellitus without complications] Onset: 05-05-2024 10-18-2020 Chronic Essential hypertension (20 sources) Essential hypertension; Translations: [Essential (primary) hypertension] Onset: 05-05-2024 10-18-2020 Chronic Nonspecific chest pain (8 sources) Chest pain; Translations: [Chest pain, unspecified] 06-19-2024 Episodic Osteoporosis (1 source) Age-related osteoporosis without current pathological fracture; Translations: [Age-related osteoporosis without current pathological fracture] Onset: 05-25-2024 Chronic Other lower respiratory disease (20 sources) Dyspnea on exertion; Translations: [Other forms of dyspnea] 10-18-2020 Episodic Other lower respiratory disease (11 sources) Respiratory insufficiency; Translations: [Other abnormalities of breathing] 04-26-2024 Episodic Other lower respiratory disease (12 sources) Hypoxia; Translations: [Hypoxemia] 06-05-2024 Episodic Other nutritional; endocrine; and metabolic disorders (11 sources) Obese class I; Translations: [Class 1 obesity] 04-26-2024 Chronic Sonia-; endo-; and myocarditis; cardiomyopathy (except that caused by tuberculosis or sexually transmitted disease) (20 sources) Cardiomyopathy; Translations: [Cardiomyopathy, unspecified] Onset: 07-14-2024 05-08-2024 Chronic Rheumatoid arthritis and related disease (1 source) Inflammatory polyarthropathy; Translations: [Inflammatory polyarthropathy] Onset: 06-06-2024 Chronic Sprains and strains (2 sources) Sprain of right coracohumeral (ligament), initial encounter; Translations: [Sprain of right coracohumeral (ligament), initial encounter] Onset: 09-22-2024 Episodic Thyroid disorders (20 sources) Hypothyroidism; Translations: [Hypothyroidism, unspecified] Onset: 05-05-2024 10-18-2020 Chronic Unclassified (3 sources) Call to make an appointment for 2 weeks from now Unclassified (1 source) Obesity, class 1; Translations: [Obesity, class 1] Onset: 05-05-2024 Past or Other Problems Problem Classification Problem Date Documented Date Episodic/Chronic Influenza (13 sources) Influenza due to Influenza A virus; Translations: [Influenza due to other identified influenza virus with other respiratory manifestations] Onset: 05-28-2024 06-05-2024 Episodic Other lower respiratory disease (1 source) Shortness of breath; Translations: [Shortness of breath] Onset: 11-06-2024 Episodic Other lower respiratory disease (2 sources) Hypoxemia; Translations: [Hypoxemia] Onset: 05-28-2024 Episodic Other lower respiratory disease (1 source) Other abnormalities of breathing; Translations: [Other abnormalities of breathing] Onset: 05-05-2024 Episodic Other non-traumatic joint disorders (1 source) Pain in right shoulder; Translations: [Pain in right shoulder] Onset: 11-09-2024 Episodic Other screening for suspected conditions (not mental disorders or infectious disease) (18 sources) Echocardiogram abnormal; Translations: [Abnormal result of other cardiovascular function study] Onset: 05-05-2024 10-20-2020 Episodic Results Test Name Value Interpretation Reference Range Facility Cardiology Visit Reporton Cardiology Visit Report [facility] 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 Coronary angiography done in 2020 demonstrated demonstrated normal coronary arteries. So this was felt to be viral. Medical therapy was optimized, and subsequent echocardiograms showed improvement in EF to 20% in 06/2024 and to 40% in 10/2024. She denies chest pain, dyspnea, palpitations, lightheadedness, dizziness, or syncope. She reports her energy level is unchanged. Home blood pressure readings have recently been elevated, around 140 mmHg systolic over the past few days, compared to her usual range of 115???120 mmHg systolic. She attributes this change to the weather. She remains active, attending her great-grandchildren?? ?s games and recently traveled to [place] to visit her son. Current medications include Farxiga, Coreg, and spironolactone. 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: No Accompanied by: Self Is patient in pain?: No Allergies amoxicillin Adverse Reaction (Verified 02/10/25 11:31) GI upset, Nausea and vomiting Medications ???Medication ???Instructions ???Recorded ???Confirmed ???Type gabapentin 100 mg capsule 100 mg PO BID nerve pain 04/30/15 02/10/25 History acetaminophen 500 mg tablet 500 mg PO Q6H PRN Pain 10/20/20 History albuterol sulfate 90 mcg/actuation 1 puff inhalation Q4H PRN 02/10/25 History aerosol inhaler shortness of breath or wheezing calcium 600 mg (as carbonate)-vit 1 tab PO DAILY supplement 4 02/10/25 History D3 20 mcg (800 unit) chewable tablet (Caltrate plus D) hydroxychloroquine 200 mg tablet 200 mg PO BID 04/16/24 02/10/25 Hi story (Plaquenil) aspirin 81 mg tablet,delayed 81 mg PO QDAY 05/08/24 02/10/25 Hi story release (Adult Low Dose Aspirin) allopurinol 100 mg tablet 100 mg PO BID gout 07/23/24 History fluticasone fur. 200 mcg-umeclid 1 inh inhalation Q24H 07/23/24 History 62.5 mcg-vilant 25 mcg inhalat.powder (Trelegy Ellipta) dapagliflozin propanediol 10 mg 10 mg PO QAM #90 tabs 10/16/24 Rx tablet (Farxiga) levothyroxine 112 mcg tablet 112 mcg PO QDAY 11/13/24 02/10/25 History sacubitril 49 mg-valsartan 51 mg 1 tab PO BID #180 tabs 11/16/24 Rx tablet (Entresto) carvedilol 6.25 mg tablet 6.25 mg PO BID #180 tabs 02/10/25 02/10/25 Rx spironolactone 25 mg tablet 25 mg PO DAILY #90 tabs 02/10/25 1 Rx Ejection fraction %: 40 Have you fallen in the past year?: Yes PFSH Medical History Cardiomyopathy Obesity (BMI 30.0-34.9) New onset of congestive heart failure Acute respiratory insufficiency Polymyalgia rheumatica Dyspnea on exertion Rheumatoid arthritis Gout Hypothyroidism Essential hypertension Type 2 diabetes mellitus Surgical History History of left heart catheterization (LHC) ( 11/15/20) H/O right knee surgery History of carpal tunnel surgery History of hysterectomy History of appendectomy Family History Mother History of DVT (deep vein thrombosis) Hypertension Father Cancer Lung Sister CAD (coronary artery disease) History of coronary artery bypass surgery Social History household members: none Smoking Status: Never smoker alcohol intake: current details: occasional substance use type: does not use caffeine: Yes Type: coffee Number of servings: 3 and tea ROS Const Const: Negative for fatigue, weakness or headache(s) Eyes Eyes: Negative for change in vision ENT ENT: Negative for headache(s), dizziness, Nosebleed/epistaxis or balance problems Cardio Chest Pain: No Palpitations: No Edema: None Muscle aches with walking: None Resp Respiratory: Negative for SOB with activity GI GI (more content not included)... Normal [facility] Cardiology Visit Reporton Cardiology Visit Report [facility] [address] [place] [address] OFFICE VISIT Date of Service: 11/13/24 MR#: [id number] Acct: [id number] Name: JEEVAN,BARBARA DODSONYE Rep #: [id number] : 1945 Provider: MARICRUZ Martines Age/Sex: 79/F Location: [facility] [place] Status: Signed HPI HPI History of Present Illness Details: Barbara Holder is an 79-year-old female that presented to [facility] on 04/16/2024 with increased shortness of breath with exertion for the last 2 to 3 weeks. She has a history of hypertension, rheumatoid arthritis. She was noted to have an elevated BN P. EKG at time of admission demonstrated sinus tachycardia. She did undergo an echocardiogram which demonstrated an ejection fraction of 10%. She did have a heart catheterization in 2020 which did not demonstrate any coronary artery disease at this time. 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 She was discharged home on carvedilol and furosemide. And considering medication titration and addition of spironolactone, Entresto and an SGLT2 on an outpatient basis. Repeat echocardiogram in June 2024 demonstrated slightly improved ejection fraction of 20%. Repeat echo from 10/2024 demonstrated and improved EF to 40. Overall from a cardiac standpoint patient is doing well. She does not have any chest pain or shortness of breath. She does feel her energy level is improved. Intake Vital Signs 07/23/24 14:17 11/13/24 15:30 Height 5 ft 3 in 5 ft 3 in Weight: 165 lb BMI 29.2 BP 118/62 Blood Pressure Location Lt brachial Position Sitting Respiration 14 Pulse 67 Pulse Source Monitor Pulse Oximetry (%) 98 Oxygen Delivery Method room air Intake Visit Reasons: 3 M [employer] Required: No Accompanied by: Son Is patient in pain?: No Allergies amoxicillin Adverse Reaction (Verified 11/13/24 15:31) GI upset, Nausea and vomiting Medications ???Medication ???Instructions ???Recorded ???Confirmed ???Type gabapentin 100 mg capsule 100 mg PO BID nerve pain 04/30/15 11/13/24 History acetaminophen 500 mg tablet 500 mg PO Q6H PRN Pain 10/20/20 History albuterol sulfate 90 mcg/actuation 1 puff inhalation Q4H PRN 11/13/24 History aerosol inhaler shortness of breath or wheezing calcium 600 mg (as carbonate)-vit 1 tab PO DAILY supplement 4 11/13/24 History D3 20 mcg (800 unit) chewable tablet (Caltrate plus D) hydroxychloroquine 200 mg tablet 200 mg PO BID 04/16/24 11/13/24 Hi story (Plaquenil) aspirin 81 mg tablet,delayed 81 mg PO QDAY 05/08/24 11/13/24 Hi story release (Adult Low Dose Aspirin) carvedilol 6.25 mg tablet 6.25 mg PO BID #60 tabs 05/08/24 0 11/13/24 Rx spironolactone 25 mg tablet 25 mg PO DAILY #90 tabs 05/08/24 0 11/13/24 Rx allopurinol 100 mg tablet 100 mg PO BID gout 07/23/24 History fluticasone fur. 200 mcg-umeclid 1 inh inhalation Q24H 07/23/24 History 62.5 mcg-vilant 25 mcg inhalat.powder (Trelegy Ellipta) dapagliflozin propanediol 10 mg 10 mg PO QAM #90 tabs 10/16/24 Rx tablet (Farxiga) levothyroxine 112 mcg tablet 112 mcg PO QDAY 11/13/24 11/13/24 History sacubitril 49 mg-valsartan 51 mg 1 tab PO BID #180 tabs 11/13/24 Rx tablet (Entresto) Ejection fraction %: 40 Have you fallen in the past year?: Yes PFSH Medical History Cardiomyopathy Obesity (BMI 30.0-34.9) New onset of congestive heart failure Acute respiratory insufficiency Polymyalgia rheumatica Dyspnea on exertion Rheumatoid arthritis Gout Hypothyroidism Essential hypertension Type 2 diabetes mellitus Surgical History History of left heart catheterization (LHC) ( 11/15/20) H/O right knee surgery History of carpal tunnel surgery History of hysterectomy History of appendectomy Family History Mother History of DVT (deep vein thrombosis) Hypertension Father Cancer Lung Sister CAD (coronary artery disease) History of coronary artery bypass surgery Social History household members: none Smoking Status: Never smoker alcohol intake: current details: occasional substance use type: does not use caffeine: Yes Type: coffee Number of servings: 3 and tea ROS Const Const: Negative for fatigue, weakness, headache(s), frequent falls, excessive sweating or weight loss Eyes Eyes: Negative for blurry vision or change in vision ENT ENT: Negative for headache(s), dizziness, Nosebleed/epistaxis or balance problems Cardio Chest Pain: No Palpitations (more content not included)... Normal [facility] Absolute lymphocyte countOrd ered By: [facility] on 11-04-2024 Lymphocytes Auto (Unsp spec) [#/Vol] 1.79 10*3/uL 0.83-4.51 [facility] Absolute neutrophil countOrd ered By: [facility] on 11-04-2024 Neutrophils (Bld) [#/Vol] 3.9 10*3/uL 2.0-7.7 [facility] Anion gap in Serum or Plasma Ordered By: [facility] 11-04-2024 Anion gap [Moles/Vol] 14 mmol/L 5-15 [facility] Automated lymphocyte count a s percentage of total leukocytesOrdered By: [facility] on 11-04-2024 Lymphocytes/100 WBC Auto (Unsp spec) 27.0 % 19-41 [facility] BUN/creatinine ratioOrdered By: [facility] on 11-04-2024 Urea nitrogen/Creatinine [Mass ratio] 23.8 mg/mg High 10-20 [facility] Basophil percentageOrdered B y: [facility] on 11-04-2024 Basophils/100 WBC (Bld) 1.1 % High 0-1 [facility] Bilirubin, totalOrdered By: [facility] on 11-04-2024 Bilirubin [Mass/Vol] 0.50 mg/dL 0.00-1.30 [facility] CBC W/Diff, Automatedon 10-20 Absolute Lymph 1.79 X10 3/uL Normal 0.83-4.51 [facility] Comment on above: Performed By: #### L 100.0100, L500.4050 ####[facility] [address] [place], [address] Absolute Neut 3.9 X10 3/uL Normal 2.0-7.7 [facility] Comment on above: Performed By: #### L 100.0100, L500.4050 ####[facility] [address] [place], [address] Basophils/100 WBC (Bld) 1.1 % High 0-1 [facility] Comment on above: Performed By: #### L 100.0100, L500.4050 ####[facility] [address] [place], [address] Eosinophils/100 WBC (Bld) 3.9 % Normal 0-5 [facility] Comment on above: Performed By: #### L 100.0100, L500.4050 ####[facility] [address] [place], [address] Erythrocyte distribution width (RBC) [Ratio] 13.4 % Normal 11.6-14.6 [facility] Comment on above: Performed By: #### L 100.0100, L500.4050 ####[facility] [address] [place], [address] Hematocrit (Bld) [Volume fraction] 45.1 % Normal 37-47 [facility] Comment on above: Performed By: #### L 100.0100, L500.4050 ####[facility] [address] [place], [address] Hemoglobin (Bld) [Mass/Vol] 14.6 g/dL Normal 12.0-15.0 [facility] Comment on above: Performed By: #### L 100.0100, L500.4050 ####[facility] [address] [place], [address] IG% 0.500 Normal 0.0-0.9 [facility] Comment on above: Result Comment: IG% - Immature Granulocytes (promyelocytes, myelocytes and metamyelocytes) > 1% indicates that a LEFT SHIFT is Present. Performed By: #### L 100.0100, L500.4050 ####[facility] [address] [place], [address] Lymphocytes/100 WBC (Bld) 27.0 % Normal 19-41 [facility] Comment on above: Performed By: #### L 100.0100, L500.4050 ####[facility] [address] [place], [address] MCH (RBC) [Entitic mass] 30.1 pg Normal 27.0-32.0 [facility] Comment on above: Performed By: #### L 100.0100, L500.4050 ####[facility] [address] [place], [address] MCHC (RBC) [Mass/Vol] 32.4 g/dL Normal 32-36 [facility] Comment on above: Performed By: #### L 100.0100, L500.4050 ####[facility] [address] [place], [address] MCV (RBC) [Entitic vol] 93.0 fL Normal 81-99 [facility] Comment on above: Performed By: #### L 100.0100, L500.4050 ####[facility] [address] [place], [address] Monocytes/100 WBC (Bld) 8.4 % Normal 0-10 [facility] Comment on above: Performed By: #### L 100.0100, L500.4050 ####[facility] [address] [place], [address] Neutrophils/100 WBC (Bld) 59.1 % Normal 47-70 [facility] Comment on above: Performed By: #### L 100.0100, L500.4050 ####[facility] [address] [place], [address] Nucleated RBC (Bld) [#/Vol] 0 10*3/uL Normal 0-5 [facility] Comment on above: Performed By: #### L 100.0100, L500.4050 ####[facility] [address] [place], [address] Platelet mean volume (Bld) [Entitic vol] 12.1 fL High 6.2-12.0 [facility] Comment on above: Performed By: #### L 100.0100, L500.4050 ####[facility] [address] [place], [address] Platelets (Bld) [#/Vol] 203 10*3/uL Normal 150-450 [facility] Comment on above: Performed By: #### L 100.0100, L500.4050 ####[facility] [address] [place], [address] RBC (Bld) [#/Vol] 4.85 10*6/uL Normal 4.2-5.4 [facility] Comment on above: Performed By: #### L 100.0100, L500.4050 ####[facility] [address] [place], [address] RDW SD 46.2 fl High 35.1-43.9 [facility] Comment on above: Performed By: #### L 100.0100, L500.4050 ####[facility] [address] [place], [address] WBC (Bld) [#/Vol] 6.6 10*3/uL Normal 4.4-11.0 [facility] Comment on above: Performed By: #### L 100.0100, L500.4050 ####[facility] [address] [place], [address] Carbon dioxide, total [Moles /volume] in Central venous bloodOrdered By: Haydee Hernandez on 11-04-2024 CO2 [Moles/Vol] 25.6 mmol/L 21.0-32.0 [facility] Chloride assayOrdered By: Ra gerry Hernandez on 11-04-2024 Chloride [Moles/Vol] 101 mmol/L 98-108 [facility] Comprehensive Metabolic Prof ilon 11-04-2024 Albumin [Mass/Vol] 4.4 g/dL Normal 3.4-4.8 [facility] Comment on above: Performed By: #### L 100.0100, L500.4050 ####[facility] [address] [place], [address] Albumin/Globulin [Mass ratio] 1.5 {ratio} Normal 0.9-2.4 [facility] Comment on above: Performed By: #### L 100.0100, L500.4050 ####[facility] [address] [place], [address] ALK PHOS 98 U/L Normal 35-104 [facility] Comment on above: Performed By: #### L 100.0100, L500.4050 ####[facility] [address] [place], [address] ALT [Catalytic activity/Vol] 14 U/L Normal <=34 [facility] Comment on above: Performed By: #### L 100.0100, L500.4050 ####[facility] [address] [place], [address] AST [Catalytic activity/Vol] 26 U/L Normal <=31 [facility] Comment on above: Performed By: #### L 100.0100, L500.4050 ####[facility] [address] [place], [address] Bilirubin [Mass/Vol] 0.50 mg/dL Normal 0.00-1.30 [facility] Comment on above: Performed By: #### L 100.0100, L500.4050 ####[facility] [address] [place], [address] BUN/CRE 23.8 RATIO High 10-20 [facility] Comment on above: Performed By: #### L 100.0100, L500.4050 ####[facility] [address] [place], [address] Calcium [Mass/Vol] 9.8 mg/dL Normal 7.6-11.0 [facility] Comment on above: Performed By: #### L 100.0100, L500.4050 ####[facility] [address] [place], [address] Chloride [Moles/Vol] 101 mmol/L Normal 98-108 [facility] Comment on above: Performed By: #### L 100.0100, L500.4050 ####[facility] [address] [place], [address] CO2 [Moles/Vol] 25.6 mmol/L Normal 21.0-32.0 [facility] Comment on above: Performed By: #### L 100.0100, L500.4050 ####[facility] [address] [place], [address] Creatinine [Mass/Vol] 1.17 mg/dL Normal 0.70-1.20 [facility] Comment on above: Performed By: #### L 100.0100, L500.4050 ####[facility] [address] [place], [address] GAP 14 Normal 5-15 [facility] Comment on above: Performed By: #### L 100.0100, L500.4050 ####[facility] [address] [place], [address] GFR/1.73 sq M.predicted among non-blacks MDRD (S/P/Bld) [Vol rate/Area] 47 mL/min/{1.73_m2} Low >60 [facility] Comment on above: Result Comment: mL/m in/1.73m2 CKD-EPI Creatinine Equation (2020) Performed By: #### L 100.0100, L500.4050 ####[facility] [address] [place], [address] Globulin (S) [Mass/Vol] 2.9 g/dL Normal 2.2-4.2 [facility] Comment on above: Performed By: #### L 100.0100, L500.4050 ####[facility] [address] [place], [address] Glucose [Mass/Vol] 148 mg/dL High 70-99 [facility] Comment on above: Performed By: #### L 100.0100, L500.4050 ####[facility] [address] [place], [address] Potassium [Moles/Vol] 3.7 mmol/L Normal 3.3-5.1 [facility] Comment on above: Performed By: #### L 100.0100, L500.4050 ####[facility] [address] [place], [address] Sodium [Moles/Vol] 141 mmol/L Normal 133-145 [facility] Comment on above: Performed By: #### L 100.0100, L500.4050 ####[facility] [address] [place], [address] T PROT 7.3 g/dL Normal 5.9-8.4 [facility] Comment on above: Performed By: #### L 100.0100, L500.4050 ####[facility] [address] [place], [address] Urea nitrogen [Mass/Vol] 28 mg/dL High 4-19 [facility] Comment on above: Performed By: #### L 100.0100, L500.4050 ####[facility] [address] [place], [address] Eosinophil percentageOrdered By: Haydeeangelic Hernandez on 11-04-2024 Eosinophils/100 WBC (Bld) 3.9 % 0-5 [facility] Erythrocyte distribution wid th ratioOrdered By: Marengo David on 11-04-2024 Erythrocyte distribution width (RBC) [Ratio] 13.4 % 11.6-14.6 [facility] Erythrocyte distribution wid th standard deviationOrdered By: [facility] on 11-04-2024 Erythrocyte distribution width (RBC) [Ratio] 46.2 fl High 35.1-43.9 [facility] Glomerular filtration rate ( GFR) estimation/1.73 sq m using serum, plasma, or whole bOrdered By: [facility] on 11-04-2024 GFR/1.73 sq M.predicted among non-blacks MDRD (S/P/Bld) [Vol rate/Area] 47 mL/min/{1.73_m2} Low >60 [facility] Comment on above: mL/min/1.73m2 CKD-EP I Creatinine Equation (2020) Hematocrit Auto (Bld) [Volum e fraction]Ordered By: [facility] on 11-04-2024 Hematocrit (Bld) [Volume fraction] 45.1 % 37-47 [facility] Hemoglobin measurementOrdere d By: Haydee Hernandez on 11-04-2024 Hemoglobin (Bld) [Mass/Vol] 14.6 g/dL 12.0-15.0 [facility] Immature granulocytes/100 WB C Auto (Bld)Ordered By: Haydeeangelic Hernandez on 11-04-2024 Immature granulocytes/100 WBC (Bld) 0.500 % 0.0-0.9 [facility] Comment on above: IG% - Immature Granu locytes (promyelocytes, myelocytes and metamyelocytes) > 1% indicates that a LEFT SHIFT is Present. Laboratory - Chemistry and C hemistry - challengeOrdered By: Haydee Hernandez on 11-04-2024 AST [Catalytic activity/Vol] 26 U/L <32 [facility] MCV (mean corpuscular volume ) determinationOrdered By: Haydee Hernandez on 11-04-2024 MCV (RBC) [Entitic vol] 93.0 fL 81-99 [facility] Magnetic resonance imaging r eportOrdered By: Ralph Hernandez on 11-04-2024 Study report [facility] [address] [place] [address] Upper Ext Joint Only(Routine) MR#: [id number] Acct: [id number] Name: BARBARA HOLDER Rep #: [id number] : 1945 F 79 From: Kai Hernandez DO PCP: Dr. Mariposa Parker DO Status: REG CLI Study:Upper Ext Joint Only(Routine) Date of Exam: 11/04/24 Exam# [id number] Ordering Dr: Ra gerry Hernandez MALLET CUTTER-C PROCEDURE: UPPER EXT JOINT ONLY(ROUTINE) 11/04/2024 REASON FOR EXAM: PAIN IN R SHOULDER AFTER FALL TECHNIQUE: UPPER EXT JOINT ONLY(ROUTINE) Multiplanar and multisequence images were obtained without IV contrast administration. COMPARISON: None FINDINGS: Full-thickness full width tear of the supraspinatus tendon with retraction to the level of the superior glenoid. Full-thickness tear of the mid to anterior fibers of the infraspinatus tendon width retraction to the glenoid rim. Some posterior infraspinatus tendon fibers remain attached but demonstrate moderate/severe tendinopathy. Moderate subscapularis tendinopathy. Moderate intracapsular biceps tendinopathy. Moderate diffuse rotator cuff muscle atrophy. Severe glenohumeral joint osteoarthritis including near-complete chondral loss throughout the humeral head and glenoid with osseous remodeling and low-level bone marrow edema as well as marginal osteophytes. Small glenohumeral joint effusion width synovitis. Several ossified joint bodies in the axillary pouch and subscapularis recess. Diffuse degenerative tearing of the glenoid labrum. Moderate acromioclavicular joint osteoarthritis including small marginal osteophytes and capsular hypertrophy. Mild lateral acromial downsloping. Negative for acute fracture or marrow replacement. Moderate fluid in the subacromial/subdeltoi d bursa. MRI/Upper Ext Joint Only(Routine) IMPRESSION: 1. Full-thickness full width retracted supraspinatus tendon tear. 2. Full-thickness partial width retracted infraspinatus tendon tear width superimposed tendinopathy. 3. Moderate subscapularis and long head biceps tendinopathy. 4. Moderate diffuse rotator cuff muscle atrophy. 5. Severe glenohumeral and moderate acromioclavicular joint osteoarthritis as above. 6. Fluid in the subacromial/subdeltoi d bursa. Reading Location: [facility] CC: MALLET CUTTERChris Hernandez; Dr. Mariposa Parker DO ~ Aircraft Communicator: Signed [facility] Mean corpuscular hemoglobin (MCH) determinationOrdered By: Haydee Hernandez on 11-04-2024 MCH (RBC) [Entitic mass] 30.1 pg 27.0-32.0 [facility] Mean corpuscular hemoglobin concentration (MCHC) determinationOrdered By: Haydee Hernandez on 11-04-2024 MCHC (RBC) [Mass/Vol] 32.4 g/dL 32-36 [facility] Mean platelet volume determi nationOrdered By: Haydee Hernandez on 11-04-2024 Platelet mean volume (Bld) [Entitic vol] 12.1 fL High 6.2-12.0 [facility] Monocyte percentageOrdered B y: Haydee Hernandez on 11-04-2024 Monocytes/100 WBC (Bld) 8.4 % 0-10 [facility] Neutrophil percentageOrdered By: Haydee Hernandez on 11-04-2024 Neutrophils/100 WBC (Bld) 59.1 % 47-70 [facility] Nucleated red blood cell per centageOrdered By: Haydee Hernandez on 11-04-2024 Nucleated RBC/100 WBC (Bld) [Ratio] 0 % 0-5 [facility] Platelet countOrdered By: Ra gerry Hernandez on 11-04-2024 Platelets (Bld) [#/Vol] 203 10*3/uL 150-450 [facility] Potassium measurement (mass/ volume)Ordered By: Haydee Hernandez on 11-04-2024 Potassium (Unsp spec) [Mass/Vol] 3.7 mmol/L 3.3-5.1 [facility] RBC Auto (Bld) [#/Vol]Ordere d By: Haydee Hernandez on 11-04-2024 RBC (Bld) [#/Vol] 4.85 10*6/uL 4.2-5.4 [facility] Serum creatinine measurement (mass/volume)Ordered By: Haydee Hernandez on 11-04-2024 Creatinine [Mass/Vol] 1.17 mg/dL 0.70-1.20 [facility] Serum globulin measurementOr dered By: Haydee Hernandez on 11-04-2024 Globulin (S) [Mass/Vol] 2.9 g/dL 2.2-4.2 [facility] Serum glucose measurement (m ass/volume)Ordered By: Haydee Hernandez on 11-04-2024 Glucose [Mass/Vol] 148 mg/dL High 70-99 [facility] Serum or plasma alanine davis otransferase (ALT) measurementOrdered By: Haydee Hernandez on 11-04-2024 ALT [Catalytic activity/Vol] 14 U/L <35 [facility] Serum or plasma albumin marilyn urement (mass/volume)Ordered By: Haydee Hernandez on 11-04-2024 Albumin [Mass/Vol] 4.4 g/dL 3.4-4.8 [facility] Serum or plasma albumin/glob ulin mass ratioOrdered By: Haydee Hernandez on 11-04-2024 Albumin/Globulin [Mass ratio] 1.5 {ratio} 0.9-2.4 [facility] Serum or plasma alkaline [place] sphatase measurementOrdered By: Haydee Hernandez on 11-04-2024 ALP [Catalytic activity/Vol] 98 U/L 35-104 [facility] Serum or plasma calcium marilyn urement (mass/volume)Ordered By: Haydee Hernandez on 11-04-2024 Calcium [Mass/Vol] 9.8 mg/dL 7.6-11.0 [facility] Serum or plasma urea nitroge n measurement (mass/volume)Ordered By: Haydee Hernandez on 11-04-2024 Urea nitrogen [Mass/Vol] 28 mg/dL High 4-19 [facility] Sodium levelOrdered By: Suzette Hernandez on 11-04-2024 Sodium [Moles/Vol] 141 mmol/L 133-145 [facility] Total proteinOrdered By: Mariana Hernandez on 11-04-2024 Protein [Mass/Vol] 7.3 g/dL 5.9-8.4 [facility] Upper Ext Joint Only(Routine )on 11-04-2024 Upper Ext Joint Only(Routine) [facility] Imaging Services [address] [place], [place] [address] Upper Ext Joint Only(Routine) MR#: [id number] Acct: [id number] Name: BARBARA HOLDER Rep #: [id number] : 1945 F 79 From: Ralph Arguelles PCP: Dr. Mariposa Parker, Status: REG CLI Study: Upper Ext Joint Only(Routine) Date of Exam: 0 11/04/24 Exam# [id number] Ordering Dr: Haydee Hernandez MALLET CUTTER-C PROCEDURE: UPPER EXT JOINT ONLY(ROUTINE) 11/04/2024 REASON FOR EXAM: PAIN IN R SHOULDER AFTER FALL TECHNIQUE: UPPER EXT JOINT ONLY(ROUTINE) Multiplanar and multisequence images were obtained without IV contrast administration. COMPARISON: None FINDINGS: Full-thickness full width tear of the supraspinatus tendon with retraction to the level of the superior glenoid. Full-thickness tear of the mid to anterior fibers of the infraspinatus tendon width retraction to the glenoid rim. Some posterior infraspinatus tendon fibers remain attached but demonstrate moderate/severe tendinopathy. Moderate subscapularis tendinopathy. Moderate intracapsular biceps tendinopathy. Moderate diffuse rotator cuff muscle atrophy. Severe glenohumeral joint osteoarthritis including near-complete chondral loss throughout the humeral head and glenoid with osseous remodeling and low-level bone marrow edema as well as marginal osteophytes. Small glenohumeral joint effusion width synovitis. Several ossified joint bodies in the axillary pouch and subscapularis recess. Diffuse degenerative tearing of the glenoid labrum. Moderate acromioclavicular joint osteoarthritis including small marginal osteophytes and capsular hypertrophy. Mild lateral acromial downsloping. Negative for acute fracture or marrow replacement. Moderate fluid in the subacromial/subdeltoi d bursa. MRI/Upper Ext Joint Only(Routine) IMPRESSION: 1. Full-thickness full width retracted supraspinatus tendon tear. 2. Full-thickness partial width retracted infraspinatus tendon tear width superimposed tendinopathy. 3. Moderate subscapularis and long head biceps tendinopathy. 4. Moderate diffuse rotator cuff muscle atrophy. 5. Severe glenohumeral and moderate acromioclavicular joint osteoarthritis as above. 6. Fluid in the subacromial/subdeltoi d bursa. Reading Location: [facility] CC: MALLET CUTTER-Ward Hernandez; Dr. Mariposa Parker DO Aircraft Communicator: Signed Normal [facility] White blood cell (WBC) count Ordered By: Haydee Hernandez on 11-04-2024 WBC (Bld) [#/Vol] 6.6 10*3/uL 4.4-11.0 [facility] Echo Limited w/Contraston Echo Limited w/Contrast [facility] Cardiovascular Services [address] [place] [address] Echo Limited w/Contrast 11/02/24 0057 MR#: [id number] Acct: [id number] Name: BARBARA HOLDER Rep #: [id number] : 1945 79 From: Wilian Yang MD Attending Dr: MARICRUZ Desai Status: REG CLI Ordering Dr: Sofia Pereyra Date: 10/20 08/14 Location: CVS Sex: F C Admitted: Reason For Study Reason For Study: CONGESTIVE HEART FAILURE Procedure This was a 2D Doppler, Color Flow transthoracic echocardiogram. Contrast injection was performed. Exam performed in department. Left Ventricle Normal LV size. The left ventricular ejection fraction is 40 %. Stage 1 diastolic dysfunction. There is mild to moderate global hypokinesis of the left ventricle. Right Ventricle Normal RV size. Normal systolic function. Atria Normal left atrium. Normal right atrium. Great Vessels Normal aortic root. Pericardium/Pleural No pericardial effusion. Medication 22 gauge I.V. with prn adaptor inserted into right arm. Diluted definity 2ml given slow IV push to enhance endocardial definition. MMode/2D Measurements Calculations RVDd: 3.3 cm LAV(MOD-bp): 24.0 ml LVAd ap4: 41.7 cm2 LAV(MOD-bp) Indexed: 13.7 ml/m2 LVLd ap4: 9.0 cm LAV(MOD-sp2): 32.5 ml EDV(MOD-sp4): 157.1 ml LAV(MOD-sp4): 17.3 ml EDV(sp4-el): 163.0 ml LVAs ap4: 29.2 cm2 LVLs ap4: 7.8 cm ESV(MOD-sp4): 88.6 ml ESV(sp4-el): 92.9 ml EF(MOD-sp4): 43.6 % EF(sp4-el): 43.0 % SV(MOD-sp4): 68.6 ml SV(MOD-sp2): 45.5 ml LVAd ap2: 35.2 cm2 LVLd ap2: 8.4 cm SI(MOD-sp4): 39.0 ml/m2 SI(MOD-sp2): 25.9 ml/m2 EDV(MOD-sp2): 122.1 ml EDV(sp2-el): 125.3 ml LVAs ap2: 26.0 cm2 LVLs ap2: 7.3 cm ESV(MOD-sp2): 76.6 ml ESV(sp2-el): 78.4 ml EF(MOD-sp2): 37.2 % SV(sp4-el): 70.1 ml Ao sinus diam: 2.5 cm LA A4 area: 9.7 cm2 LA dimension(2D): 3.7 cm RA A4 area: 7.3 cm2 TAPSE: 1.9 cm Time Measurements MV dec time: 0.24 sec Doppler Measurements Calculations MV E max sofia: 62.0 cm/sec Lat Peak E' Sofia: 7.6 cm/sec Med Peak E' Sofia: 7.6 cm/sec MV A max sofia: 101.2 cm/sec E/E' lat: 8.2 E/E' med: 8.2 MV E/A: 0.61 MV dec slope: 257.9 cm/sec2 ECHO/Echo Limited w/Contrast Interpretation Summary Normal LV size. The left ventricular ejection fraction is 40 %. There is mild to moderate global hypokinesis of the left ventricle. Stage 1 diastolic dysfunction. Contrast injection was performed. Ordering Physician: Sofia Pereyra Referring Physician: Mariposa Parker Performed By: Sangita Alexander, RDPRAVEEN 11/02/241630 Date Wilian Yang MD CC: Dr. Mariposa Parker, DO; MARICRUZ Desai Date Dictated: 11/02/2456 Date Transcribed: 11/02/241630 Aircraft Communicator: Signed Normal [facility] Limited echocardiogram repor tOrdered By: Wilian Yang on 11-02-2024 Study report [facility] Cardiovascular Services [address] [place] [address] Echo Limited w/Contrast 11/02/2456 MR#: [id number] Acct: [id number] Name: BARBARA HOLDER Rep #:[id number] : 1945 79 From: Wilian Wiggins Attending Dr: MARICRUZ Desai Status: REG CLI Ordering Dr: Sofia Pereyra Date: 11/02/24 Location: [facility] Sex: F C Admitted: Reason For Study Reason For Study: CONGESTIVE HEART FAILURE Procedure This was a 2D Doppler, Color Flow transthoracic echocardiogram. Contrast injection was performed. Exam performed in department. Left Ventricle Normal LV size. The left ventricular ejection fraction is 40 %. Stage 1 diastolic dysfunction. There is mild to moderate global hypokinesis of the left ventricle. Right Ventricle Normal RV size. Normal systolic function. Atria Normal left atrium. Normal right atrium. Great Vessels Normal aortic root. Pericardium/Pleural No pericardial effusion. Medication 22 gauge I.V. with prn adaptor inserted into right arm. Diluted definity 2ml given slow IV push to enhance endocardial definition. MMode/2D Measurements & Calculations RVDd: 3.3 cm LAV(MOD-bp): 24.0 ml LVAd ap4: 41.7 cm2 LAV(MOD-bp) Indexed: 13.7 ml/m2 LVLd ap4: 9.0 cm LAV(MOD-sp2): 32.5 ml EDV(MOD-sp4): 157.1 ml LAV(MOD-sp4): 17.3 ml EDV(sp4-el): 163.0 ml LVAs ap4: 29.2 cm2 LVLs ap4: 7.8 cm ESV(MOD-sp4): 88.6 ml ESV(sp4-el): 92.9 ml EF(MOD-sp4): 43.6 % EF(sp4-el): 43.0 % SV(MOD-sp4): 68.6 ml SV(MOD-sp2): 45.5 ml LVAd ap2: 35.2 cm2 LVLd ap2: 8.4 cm SI(MOD-sp4): 39.0 ml/m2 SI(MOD-sp2): 25.9 ml/m2 EDV(MOD-sp2): 122.1 ml EDV(sp2-el): 125.3 ml LVAs ap2: 26.0 cm2 LVLs ap2: 7.3 cm ESV(MOD-sp2): 76.6 ml ESV(sp2-el): 78.4 ml EF(MOD-sp2): 37.2 % SV(sp4-el): 70.1 ml Ao sinus diam: 2.5 cm LA A4 area: 9.7 cm2 LA dimension(2D): 3.7 cm RA A4 area: 7.3 cm2 TAPSE: 1.9 cm Time Measurements MV dec time: 0.24 sec Doppler Measurements & Calculations MV E max sofia: 62.0 cm/sec Lat Peak E' Sofia: 7.6 cm/sec Med Peak E' Sofia: 7.6 cm/sec MV A max sofia: 101.2 cm/sec E/E' lat: 8.2 E/E' med: 8.2 MV E/A: 0.61 MV dec slope: 257.9 cm/sec2 ECHO/Echo Limited w/Contrast Interpretation Summary Normal LV size. The left ventricular ejection fraction is 40 %. There is mild to moderate global hypokinesis of the left ventricle. Stage 1 diastolic dysfunction. Contrast injection was performed. Ordering Physician: Sofia Pereyra Referring Physician: Mariposa Parker Performed By: Sangita Alexander RDCS 11/02/24 1631 Date _ Wilian Yang MD CC: Dr. Mariposa Parker DO; MARICRUZ Desai ~ Date Dictated: 11/02/2456 Date Transcribed: 11/02/24 163 Aircraft Communicator: Micky [facility] Work Phone: ED Prov Noteon 09-22-2024 ED Prov Note [facility] EMERGENCY DEPARTMENT ATTENDING NOTE: NAME: Barbara Holder CSN: [id number] 79 y.o. PCP: Mariposa Parker DO History: Chief Complaint: Fall HPI: The history was obtained from the patient. Barbara is a 79 y.o. female who presents with a chief complaint of Fall. As per the patient she was stepping down from the porch and only. Her slippers got stuck and she fell landed on the right knee on the grass and then right elbow jammed her shoulder on arrival right shoulder pain. Did not hit her head no loss of consciousness no nausea no vomiting PMHx: Past Medical History: Diagnosis Date Asthma Atrial fib/flutter, transient (HCC) Congestive heart failure (CHF) (HCC) Hypothyroid PMSx: History reviewed. No pertinent surgical history. FAM. Hx: History reviewed. No pertinent family history. SOC. Hx: Social History [1] MEDs: Previous Medications Medication Sig allopurinoL (ZYLOPRIM) 100 MG tablet carvediloL (COREG) 6.25 MG tablet cetirizine (ZYRTEC) 10 MG tablet Take by mouth . Entresto 24-26 mg per tablet Take 1 (one) tablet by mouth 2 (two) times a day . Farxiga 10 mg tablet Take 1 (one) tablet (10 mg total) by mouth . furosemide (LASIX) 40 MG tablet hydroxychloroquine (PLAQUENIL) 200 mg tablet spironolactone (ALDACTONE) 25 MG tablet Trelegy Ellipta 200-62.5-25 mcg DsDv aspirin 81 MG EC tablet Take 1 (one) tablet (81 mg total) by mouth daily . gabapentin (NEURONTIN) 100 MG capsule 1 (one) capsule (100 mg total) . levothyroxine (SYNTHROID, LEVOTHROID) 125 MCG tablet Take 1 (one) tablet (125 mcg total) by mouth every morning before breakfast FOR BLOOD SUGAR . ALL: Allergies[2] ROS: Review of Systems Positives and pertinent negatives as per HPI. All other systems were reviewed and are negative. Physical Exam: Patient Vitals for the past 24 hrs: BP Temp Pulse Resp SpO2 Height Weight 09/22/24 1455 (!) 104/91 97.2 degrees F (36.2 degrees C) 81 18 99 % 5' 3 72.6 kg (160 lb) Physical Exam Vitals reviewed. Eyes: Pupils: Pupils are equal, round, and reactive to light. Cardiovascular: Rate and Rhythm: Normal rate and regular rhythm. Musculoskeletal: General: Tenderness present. Comments: Tenderness palpation right acromioclavicular joint, no obvious deformity pain on flexion extension and abduction. No tenderness palpation right knee Pulmonary: Effort: Pulmonary effort is normal. Abdominal: Palpations: Abdomen is soft. Skin: General: Skin is warm. Neurological: General: No focal deficit present. Mental Status: She is alert and oriented to person, place, and time. Laboratory & Radiological Imaging (if done): Labs Reviewed - No data to display XR Shoulder Right 2+ Views (Standard) Preliminary Result No acute osseous abnormality. Severe glenohumeral joint osteoarthritis. ST/lab Workstation ID: [id number] Procedures: Procedures ED Course / Medical Decision Making: I did personally review Barbara's past medical history, surgical history, social history, as well as family history (when relevant). In this case, I also oversaw the her drug management by reviewing her medication list, allergy list, as well as the medications that I prescribed during the ED course and/or recommended as an out-patient (including possible OTC medications such as acetaminophen, NSAIDs , etc). Her past medical problem list included: Active Ambulatory Problems Diagnosis Date Noted No Active Ambulatory Problems Resolved Ambulatory Problems Diagnosis Date Noted No Resolved Ambulatory Problems Past Medical History: Diagnosis Date Asthma Atrial fib/flutter, transient (HCC) Congestive heart failure (CHF) (HCC) Hypothyroid ED MEDICATIONS GIVEN: Medications - No data to display After reviewing the items above, I did not look at previous medical documentation, such as recent hospitalizations, office visits, and/or recent consultations with PCP/specialist. SDOH: Another factor that I considered in Barbara's care was her Social Determinants of Health (SDOH). During this ED encounter, she did NOT appear to have any significant issues identified. ED COURSE: My differential diagnosis Shoulder contusion acromioclavicular sprain, shoulder dislocation shoulder sprain I ordered an x-ray of the right shoulder following which further disposition will be made X-ray interpreted radiology was negative for any acute fracture dislocation patient was reassured advised for the orthopedics if symptoms or not better. . Clinical Impression: 1. Sprain of right coracohumeral ligament, initial encounter Disposition: ED Disposition ED Disposition Discharge Condition Stable Comment Barbara Holder discharged to home/self care in stable condition. Monique Pugh MD, MD ED Attending Physician [facility] EMERGENCY DEPARTMENT [1] Social History Socioeconomic History Marital status: [2] Allergies Allergen (more content not included)... [facility] XR SHOULDER RIGHT 2+ VIEWS ( STANDARD)on 09-22-2024 XR SHOULDER RIGHT 2+ VIEWS (STANDARD) EXAMINATION: XR SHOULDER RIGHT 2+ VIEWS (STANDARD) HISTORY: ORDERING SYSTEM PROVIDED HISTORY: Fall, TECHNOLOGIST PROVIDED HISTORY: Injury/Trauma Reason for Exam: Fall onto the right shoulder today has pain over superior aspect radiating to the neck with increased pain when abducting the arm Cancer History: N Surgery, Radiation History: N Encounter Type: Initial Mechanism of Injury: Fall ORDERING SYSTEM PROVIDED DIAGNOSIS CODES: COMPARISON: None. FINDINGS: Three views of the right shoulder. No acute fracture. Probable subacromial spur. Glenohumeral and acromioclavicular joints are anatomically aligned. Moderate AC joint space narrowing with moderate osteophytic spurring. Severe glenohumeral joint space narrowing with [id number] appearance, subchondral sclerosis and large inferior humeral head marginal osteophyte. IMPRESSION: No acute osseous abnormality. Severe glenohumeral joint osteoarthritis. ST/lab Workstation ID: [id number] Dictated by: RENE ALEJANDRA on SatSep 22, 2024 3:24:39 PM EDT Transcribed by: ANITA IRVIN on SatSep 22, 2024 3:30:17 PM EDT Finalized by: RENE ALEJANDRA on SatSep 22, 2024 10:14:56 PM EDT [facility] Comment on above: Order Comment: Injur y/Trauma or Illness?:Injury/Trauma How long have you had these symptoms (acute/chronic)?:Acute Reason for exam?:fall onto the right shoulder today has pain over superior aspect radiating to the neck with increased pain when abducting the arm History of cancer?:n Surgeries, chemotherapy, or radiation?:n Type of Exam?:Initial Mechanism of injury?:fall Free T3on 09-11-2024 Free T3 [Mass/Vol] 3.0 pg/mL Normal 2.18-3.98 [facility] Comment on above: Performed By: #### L 100.0100, L500.2500 #### [facility] [address] [place], [address] Free C2Yynxdmd By: Haydee covarrubias on 09-11-2024 Free T3 [Mass/Vol] 3.0 pg/mL 2.18-3.98 [facility] T4 Free Directon 09-11-2024 T4 FREE DIRECT 2.10 ng/dL High 0.76-1.46 [facility] Comment on above: Performed By: #### L 501.080 #### [facility] [address] [place], [place], [address] T4 freeOrdered By: Haydee covarrubias on 09-11-2024 Free T4 [Mass/Vol] 2.10 ng/dL High 0.76-1.46 [facility] TSH DL <= 0.005 mIU/L QnOrde red By: Haydee Hernandez on 09-11-2024 TSH Qn 0.051 uIU/mL Low 0.300-4.200 [facility] Thyroid Stim Hormone (TSH)on 09-11-2024 TSH 0.051 uIU/mL Low 0.300-4.200 [facility] Comment on above: Performed By: #### L 501.080 #### [facility] [address] [place], [address] Cardiology Visit Reporton Cardiology Visit Report [facility] [address] [place] [address] OFFICE VISIT Date of Service: 07/23/24 MR#: [id number] Acct: [id number] Name: BARBARA HOLDER Rep #: [id number] : 1945 Provider: MARICRUZ Martines Age/Sex: 79/F Location: [facility] Status: Signed HPI HPI History of Present Illness Details: Barbara Holder is an 79-year-old female that presented to [facility] on 04/16/2024 with increased shortness of breath with exertion for the last 2 to 3 weeks. She has a history of hypertension, rheumatoid arthritis. She was noted to have an elevated BN P. EKG at time of admission demonstrated sinus tachycardia. She did undergo an echocardiogram which demonstrated an ejection fraction of 10%. She did have a heart catheterization in 2020 which did not demonstrate any coronary artery disease at this time. 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 She was discharged home on carvedilol and furosemide. And considering medication titration and addition of spironolactone, Entresto and an SGLT2 on an outpatient basis. Repeat echocardiogram in June 2024 demonstrated slightly improved ejection fraction of 20%. Overall from a cardiac standpoint she is doing okay. She does have shortness of breath with activity but feels that it is her baseline. She is here today to discuss her ejection fraction of 20% and whether or not she should pursue a prophylactic ICD. Intake Vital Signs 06/19/24 08:07 07/23/24 14:17 Height 5 ft 3 in 5 ft 3 in Weight: 166 lb BMI 29.4 BP 130/74 H Blood Pressure Location Lt brachial Position Sitting Respiration 16 Pulse 80 Pulse Source NIBP Intake Visit Reasons: 1 M FU/See Clinical Note [employer] Operator Required: No Is patient in pain?: No Allergies amoxicillin Adverse Reaction (Verified 07/23/24 14:22) GI upset, Nausea and vomiting Medications ???Medication ???Instructions ???Recorded ???Confirmed ???Type gabapentin 100 mg capsule 100 mg PO BID nerve pain 04/30/15 07/23/24 History acetaminophen 500 mg tablet 500 mg PO Q6H PRN Pain 10/20/20 History albuterol sulfate 90 mcg/actuation 1 puff inhalation Q4H PRN 07/23/24 History aerosol inhaler shortness of breath or wheezing calcium 600 mg (as carbonate)-vit 1 tab PO DAILY supplement 4 07/23/24 History D3 20 mcg (800 unit) chewable tablet (Caltrate plus D) hydroxychloroquine 200 mg tablet 200 mg PO BID 04/16/24 07/23/24 Hi story (Plaquenil) levothyroxine 125 mcg tablet 125 mcg PO DAILY@0600 #30 tabs 07/23/24 Rx aspirin 81 mg tablet,delayed 81 mg PO QDAY 05/08/24 07/23/24 Hi story release (Adult Low Dose Aspirin) carvedilol 6.25 mg tablet 6.25 mg PO BID #60 tabs 05/08/24 0 07/23/24 Rx furosemide 40 mg tablet 40 mg PO DAILY #90 tabs 05/08/24 0 07/23/24 Rx spironolactone 25 mg tablet 25 mg PO DAILY #90 tabs 05/08/24 0 07/23/24 Rx dapagliflozin propanediol 10 mg 10 mg PO QAM #30 tabs 06/19/2407/14 Rx tablet (Farxiga) allopurinol 100 mg tablet 100 mg PO BID gout 07/23/24 History fluticasone fur. 200 mcg-umeclid 1 inh inhalation Q24H 07/23/2407/14 History 62.5 mcg-vilant 25 mcg inhalat.powder (Trelegy Ellipta) sacubitril 24 mg-valsartan 26 mg 1 tab PO BID #60 tabs 07/23/2407/14 Rx tablet (Entresto) Ejection fraction %: 20 Have you fallen in the past year?: No PFSH Medical History Cardiomyopathy Obesity (BMI 30.0-34.9) New onset of congestive heart failure Acute respiratory insufficiency Polymyalgia rheumatica Dyspnea on exertion Rheumatoid arthritis Gout Hypothyroidism Essential hypertension Type 2 diabetes mellitus Surgical History History of left heart catheterization (LHC) ( 11/15/20) H/O right knee surgery History of carpal tunnel surgery History of hysterectomy History of appendectomy Family History Mother History of DVT (deep vein thrombosis) Hypertension Father Cancer Lung Sister CAD (coronary artery disease) History of coronary artery bypass surgery Social History household members: none Smoking Status: Never smoker alcohol intake: current details: occasional substance use type: does not use caffeine: Yes Type: coffee Number of servings: 3 and tea ROS Const Const: Negative for fatigue or weakness Eyes Eyes: Negative for change in vision ENT ENT: Negative for dizziness or balance problems Cardio Chest Pain: No Palpitations: No Edema: None Resp Respiratory: Negative for SOB with activity, SOB at rest or SOB orthopnea (more content not included)... Normal [facility] Echo Complete W/ Contraston 07-16-2024 Echo Complete W/ Contrast [facility] Services [address] [place] [address] Echo Complete W/ Contrast 07/16/24 1011 MR#: [id number] Acct: [id number] Name: BARBARA HOLDER Rep #: [id number] : 1945 79 From: Wilian Yang MD Attending Dr: MARICRUZ Desai Status: REG [facility] Ordering Dr: Sofia Pereyra Date: 06/21 11/13 Location: [facility] Sex: F C Admitted: Reason For Study : CHF Procedure This was a 2D Doppler, Color Flow transthoracic echocardiogram. The study was technically difficult. Contrast injection was performed. Exam performed in department. Left Ventricle Moderately dilated left ventricle. The left ventricular ejection fraction is 20 %. Stage 1 diastolic dysfunction. There is severe global hypokinesis of the left ventricle. Right Ventricle Normal RV size. Normal systolic function. Atria Normal left atrium. Mitral Valve Normal mitral valve. Tricuspid Valve Normal tricuspid valve. Aortic Valve Trisinus/trileaflet aortic valve. Moderate focal aortic valve calcification. Great Vessels Normal aortic root. The pulmonary artery is normal size. Normal inferior vena cava. Pericardium/Pleural No pericardial effusion. Medication 22 gauge I.V. with prn adaptor inserted into right arm. Diluted definity 2.5ml given slow IV push to enhance endocardial definition. MMode/2D Measurements Calculations RVDd: 2.9 cm LVOT diam: 2.0 cm Ao root diam: 2.9 cm LVOT area: 3.2 cm2 LAV(MOD-bp): 29.1 ml SV(MOD-sp4): 39.2 ml LVAd ap4: 41.2 cm2 LAV(MOD-bp) Indexed: 16.5 ml/m2 LVLd ap4: 9.0 cm SI(MOD-sp4): 22.2 ml/m2 LAV(MOD-sp2): 31.3 ml EDV(MOD-sp4): 158.2 ml LAV(MOD-sp4): 26.8 ml EDV(sp4-el): 160.6 ml LVAs ap4: 33.5 cm2 LVLs ap4: 7.8 cm ESV(MOD-sp4): 119.0 ml ESV(sp4-el): 121.2 ml EF(MOD-sp4): 24.8 % EF(sp4-el): 24.5 % SV(sp4-el): 39.4 ml LA A4 area: 12.2 cm2 LA dimension(2D): 3.8 cm RA A4 area: 10.0 cm2 Time Measurements MV dec time: 0.08 sec Doppler Measurements Calculations MV E max sofia: 59.8 cm/sec Lat Peak E' Sofia: 4.4 cm/sec Med Peak E' Sofia: 3.8 cm/sec MV A max sofia: 127.9 cm/sec E/E' lat: 13.6 E/E' med: 15.9 MV E/A: 0.47 MV dec slope: 856.1 cm/sec2 Ao V2 max: 130.6 cm/sec LV V1 max: 131.7 cm/sec Ao max P.8 mmHg LV V1 max P.9 mmHg Ao V2 mean: 88.6 cm/sec LV V1 mean P.9 mmHg Ao mean P.7 mmHg LV V1 mean: 92.3 cm/sec Ao V2 VTI: 29.7 cm LV V1 VTI: 27.7 cm AV (velocity ratio): 0.93 TAMI(I,D): 2.9 cm2 TAMI(V,D): 3.2 cm2 SV(LVOT): 87.6 ml PA V2 max: 120.8 cm/sec PA V2 mean: 82.9 cm/sec ECHO/Echo Complete W/ Contrast Interpretation Summary Moderately dilated left ventricle. The left ventricular ejection fraction is 20 %. There is severe global hypokinesis of the left ventricle. Stage 1 diastolic dysfunction. Contrast injection was performed. Compared to previous study, the left ventricular systolic function has improved.. Ordering Physician: Sofia Pereyra Referring Physician: Sofia Pereyra Performed By: Monica Lozano RCS 07/16/24 1154 Date Wilian Yang MD CC: Dr. Mariposa Parker DO; MARICRUZ Desai Date Dictated: 07/16/24 1011 Date Transcribed: 07/16/24 1153 Aircraft Communicator: Signed Normal [facility] Echocardiogram study reportO rdered By: Wilian Yang on 07-16-2024 Study report [facility] [address] [place] [id number] Echo Complete W/ Contrast 07/16/24 1011 MR#: [id number] Acct: [id number] Name: BARBARA HOLDER Rep #:[id number] : 1945 79 From: Wilian Wiggins Attending Dr: MARICRUZ Desai Status: REG CLI Ordering Dr: oSfia Pereyra Date: 07/16/24 Location: [facility] Sex: F C Admitted: Reason For Study : CHF Procedure This was a 2D Doppler, Color Flow transthoracic echocardiogram. The study was technically difficult. Contrast injection was performed. Exam performed in department. Left Ventricle Moderately dilated left ventricle. The left ventricular ejection fraction is 20 %. Stage 1 diastolic dysfunction. There is severe global hypokinesis of the left ventricle. Right Ventricle Normal RV size. Normal systolic function. Atria Normal left atrium. Mitral Valve Normal mitral valve. Tricuspid Valve Normal tricuspid valve. Aortic Valve Trisinus/trileaflet aortic valve. Moderate focal aortic valve calcification. Great Vessels Normal aortic root. The pulmonary artery is normal size. Normal inferior vena cava. Pericardium/Pleural No pericardial effusion. Medication 22 gauge I.V. with prn adaptor inserted into right arm. Diluted definity 2.5ml given slow IV push to enhance endocardial definition. MMode/2D Measurements & Calculations RVDd: 2.9 cm LVOT diam: 2.0 cm Ao root diam: 2.9 cm LVOT area: 3.2 cm2 LAV(MOD-bp): 29.1 ml SV(MOD-sp4): 39.2 ml LVAd ap4: 41.2 cm2 LAV(MOD-bp) Indexed: 16.5 ml/m2 LVLd ap4: 9.0 cm SI(MOD-sp4): 22.2 ml/m2 LAV(MOD-sp2): 31.3 ml EDV(MOD-sp4): 158.2 ml LAV(MOD-sp4): 26.8 ml EDV(sp4-el): 160.6 ml LVAs ap4: 33.5 cm2 LVLs ap4: 7.8 cm ESV(MOD-sp4): 119.0 ml ESV(sp4-el): 121.2 ml EF(MOD-sp4): 24.8 % EF(sp4-el): 24.5 % SV(sp4-el): 39.4 ml LA A4 area: 12.2 cm2 LA dimension(2D): 3.8 cm RA A4 area: 10.0 cm2 Time Measurements MV dec time: 0.08 sec Doppler Measurements & Calculations MV E max sofia: 59.8 cm/sec Lat Peak E' Sofia: 4.4 cm/sec Med Peak E' Sofia: 3.8 cm/sec MV A max sofia: 127.9 cm/sec E/E' lat: 13.6 E/E' med: 15.9 MV E/A: 0.47 MV dec slope: 856.1 cm/sec2 Ao V2 max: 130.6 cm/sec LV V1 max: 131.7 cm/sec Ao max P.8 mmHg LV V1 max P.9 mmHg Ao V2 mean: 88.6 cm/sec LV V1 mean P.9 mmHg Ao mean P.7 mmHg LV V1 mean: 92.3 cm/sec Ao V2 VTI: 29.7 cm LV V1 VTI: 27.7 cm AV (velocity ratio): 0.93 TAMI(I,D): 2.9 cm2 TAMI(V,D): 3.2 cm2 ___ SV(LVOT): 87.6 ml PA V2 max: 120.8 cm/sec PA V2 mean: 82.9 cm/sec ECHO/Echo Complete W/ Contrast Interpretation Summary Moderately dilated left ventricle. The left ventricular ejection fraction is 20 %. There is severe global hypokinesis of the left ventricle. Stage 1 diastolic dysfunction. Contrast injection was performed. Compared to previous study, the left ventricular systolic function has improved.. Ordering Physician: Sofia Pereyra Referring Physician: Sofia Pereyra Performed By: Monica Lozano RCS 07/16/24 1154 Date _ Wilian Yang MD CC: Dr. Mariposa Parker, DO; MARICRUZ Desai ~ Date Dictated: 07/16/24 1011 Date Transcribed: 07/16/24 1153 Aircraft Communicator: Signed [facility] Work Phone: Anion gap in Serum or Plasma Ordered By: Sofia Pereyra on 07-03-2024 Anion gap [Moles/Vol] 13 mmol/L 5-15 [facility] BUN/creatinine ratioOrdered By: Sofia Pereyra on 07-03-2024 Urea nitrogen/Creatinine [Mass ratio] 17.6 mg/mg 10-20 [facility] Basic Metabolic Profile (BMP )on 07-03-2024 BUN/CRE 17.6 RATIO Normal 10-20 [facility] Comment on above: Performed By: #### L 500.2500 ####[facility] [address] [place], [address] Calcium [Mass/Vol] 9.6 mg/dL Normal 7.6-11.0 [facility] Comment on above: Performed By: #### L 500.2500 ####[facility] [address] [place], [address] Chloride [Moles/Vol] 101 mmol/L Normal 98-108 [facility] Comment on above: Performed By: #### L 500.2500 ####[facility] [address] [place], [address] CO2 [Moles/Vol] 26.6 mmol/L Normal 21.0-32.0 [facility] Comment on above: Performed By: #### L 500.2500 ####[facility] [address] [place], [address] Creatinine [Mass/Vol] 0.98 mg/dL Normal 0.70-1.20 [facility] Comment on above: Performed By: #### L 500.2500 ####[facility] [address] [place], [address] GAP 13 Normal 5-15 [facility] Comment on above: Performed By: #### L 500.2500 ####[facility] [address] [place], [address] GFR/1.73 sq M.predicted among non-blacks MDRD (S/P/Bld) [Vol rate/Area] 58 mL/min/{1.73_m2} Low >60 [facility] Comment on above: Result Comment: mL/m in/1.73m2 CKD-EPI Creatinine Equation (2021) Performed By: #### L 500.2500 ####[facility] [address] [place], [address] Glucose [Mass/Vol] 115 mg/dL High 70-99 [facility] Comment on above: Performed By: #### L 500.2500 ####[facility] [address] [place], [address] Potassium [Moles/Vol] 3.6 mmol/L Normal 3.3-5.1 [facility] Comment on above: Performed By: #### L 500.2500 ####[facility] [address] [place], [address] Sodium [Moles/Vol] 140 mmol/L Normal 133-145 [facility] Comment on above: Performed By: #### L 500.2500 ####[facility] [address] [place], [address] Urea nitrogen [Mass/Vol] 17 mg/dL Normal 4-19 [facility] Comment on above: Performed By: #### L 500.2500 ####[facility] [address] [place], [address] Carbon dioxide, total [Moles /volume] in Central venous bloodOrdered By: Sofia Pereyra on 07-03-2024 CO2 [Moles/Vol] 26.6 mmol/L 21.0-32.0 [facility] Chloride assayOrdered By: Ekta Pereyra on 07-03-2024 Chloride [Moles/Vol] 101 mmol/L 98-108 [facility] GFR/1.73 sq M.predicted karen g non-blacks MDRD (S/P/Bld) [Vol rate/Area]Ordered By: Sofia Pereyra on 07-03-2024 Estimated GFR (MDRD) Non-Af Amer 58 Low >60 [facility] Comment on above: mL/min/1.73m2 CKD-EP I Creatinine Equation (2020) Glomerular filtration rate ( GFR) estimation/1.73 sq m using serum, plasma, or whole bOrdered By: Sofia Pereyra on 07-03-2024 GFR/1.73 sq M.predicted among non-blacks MDRD (S/P/Bld) [Vol rate/Area] 58 mL/min/{1.73_m2} Low >60 [facility] Comment on above: mL/min/1.73m2 CKD-EP I Creatinine Equation (2020) Potassium (Unsp spec) [Mass/ Vol]Ordered By: Sofia Pereyra on 07-03-2024 Potassium [Moles/Vol] 3.6 mmol/L 3.3-5.1 [facility] Potassium measurement (mass/ volume)Ordered By: Sofia Pereyra on 07-03-2024 Potassium (Unsp spec) [Mass/Vol] 3.6 mmol/L 3.3-5.1 [facility] Serum creatinine measurement (mass/volume)Ordered By: Sofia Pereyra on 07-03-2024 Creatinine [Mass/Vol] 0.98 mg/dL 0.70-1.20 [facility] Serum glucose measurement (m ass/volume)Ordered By: Sofia Pereyra on 07-03-2024 Glucose [Mass/Vol] 115 mg/dL High 70-99 [facility] Serum or plasma calcium marilyn urement (mass/volume)Ordered By: Sofia Pereyra on 07-03-2024 Calcium [Mass/Vol] 9.6 mg/dL 7.6-11.0 [facility] Serum or plasma urea nitroge n measurement (mass/volume)Ordered By: Sofia Pereyra on 07-03-2024 Urea nitrogen [Mass/Vol] 17 mg/dL 4-19 [facility] Sodium levelOrdered By: Brennon Pereyra on 07-03-2024 Sodium [Moles/Vol] 140 mmol/L 133-145 [facility] Cardiology Visit Reporton Cardiology Visit Report [facility] [address] [place] [address] OFFICE VISIT Date of Service: 06/19/24 MR#: [id number] Acct: [id number] Name: BARBARA HOLDER Rep #: [id number] 18 : 1945 Provider: MARICRUZ Martines Age/Sex: 79/F Location: [facility] [place] Status: Signed HPI HPI History of Present Illness Details: Barbara Holder is an 79-year-old female that presented to [facility] on 04/16/2024 with increased shortness of breath with exertion for the last 2 to 3 weeks. She has a history of hypertension, rheumatoid arthritis. She was noted to have an elevated BN P. EKG at time of admission demonstrated sinus tachycardia. She did undergo an echocardiogram which demonstrated an ejection fraction of 10%. She did have a heart catheterization in 2020 which did not demonstrate any coronary artery disease at this time. 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 She was discharged home on carvedilol and furosemide. And considering medication titration and addition of spironolactone, Entresto and an SGLT2 on an outpatient basis. Patient questions if she did not have heart failure symptoms over the summer as she was noted to be shortness of breath with exertion she does feel significantly better since being home. It is also noted that she does have a family history of congestive heart failure. 2 of her sons have cardiomyopathies. They also have renal failure. At one of them does have a renal transplant. She is recovering from influenza and did require a hospital stay. She has lost 20 lbs since she was here last. She is having issues with constipation. Intake Vital Signs 05/26/24 03:25 06/19/24 08:07 Height 5 ft 3 in 5 ft 3 in Weight: 161 lb BMI 28.5 BP 128/84 H Blood Pressure Location Lt brachial Position Sitting Respiration 18 Pulse 86 Pulse Source Monitor Pulse Oximetry (%) 97 Intake Visit Reasons: SOB/CP [employer] Required: No Is patient in pain?: No Allergies amoxicillin Adverse Reaction (Verified 06/19/24 11:24) GI upset, Nausea and vomiting Medications ???Medication ???Instructions ???Recorded ???Confirmed ???Type gabapentin 100 mg capsule 100 mg PO BID nerve pain 04/30/15 06/19/24 History allopurinol 100 mg tablet 200 mg PO DAILY gout 10/18/20/12/14 History acetaminophen 500 mg tablet 500 mg PO Q6H PRN Pain 10/20/20 History albuterol sulfate 90 mcg/actuation 1 puff inhalation Q4H PRN 06/19/24 History aerosol inhaler shortness of breath or wheezing calcium 600 mg (as carbonate)-vit 1 tab PO DAILY supplement 4 06/19/24 History D3 20 mcg (800 unit) chewable tablet (Caltrate plus D) hydroxychloroquine 200 mg tablet 200 mg PO BID 04/16/24 06/19/24 Hi story (Plaquenil) mometasone-formoterol HFA 100 2 puff inhalation BID breathing 06/19/24 History mcg-5 mcg/actuation aerosol inhaler (Dulera) ondansetron 4 mg disintegrating 4 - 8 mg PO Q6H PRN PRN nausea 06/19/24 History tablet levothyroxine 125 mcg tablet 125 mcg PO DAILY@0600 #30 tabs 06/19/24 Rx aspirin 81 mg tablet,delayed 81 mg PO QDAY 05/08/24 06/19/24 Hi story release (Adult Low Dose Aspirin) carvedilol 6.25 mg tablet 6.25 mg PO BID #60 tabs 05/08/24 0 06/19/24 Rx furosemide 40 mg tablet 40 mg PO DAILY #90 tabs 05/08/24 0 06/19/24 Rx spironolactone 25 mg tablet 25 mg PO DAILY #90 tabs 05/08/24 0 06/19/24 Rx potassium chloride 20 mEq 20 meq PO DAILY 05/26/24 06/19/24 History tablet,extended release(part/cryst) triamterene 37.5 1 tab PO DAILY 05/26/24 06/19/24 H istory mg-hydrochlorothiazid e 25 mg tablet dapagliflozin propanediol 10 mg 10 mg PO QAM #30 tabs 06/19/24 Rx tablet (Farxiga) Ejection fraction %: 10 Have you fallen in the past year?: No Nurse's Note: patient states she is not here for chest pain or shortness of breath, just regular followup appointment [facility] Medical History Cardiomyopathy Obesity (BMI 30.0-34.9) New onset of congestive heart failure Acute respiratory insufficiency Polymyalgia rheumatica Dyspnea on exertion Rheumatoid arthritis Gout Hypothyroidism Essential hypertension Type 2 diabetes mellitus Surgical History History of left heart catheterization (LHC) ( 11/15/20) H/O right knee surgery History of carpal tunnel surgery History of hysterectomy History of appendectomy Family History Mother History of DVT (deep vein thrombosis) Hypertension Father Cancer Lung Sister CAD (coronary artery disease) History of coronary art (more content not included)... Normal [facility] Free T3on 06-17-2024 Free T3 [Mass/Vol] 2.8 pg/mL Normal 2.18-3.98 [facility] Comment on above: Performed By: #### L 501.080 #### [facility] [address] [place], [place], [id number] Free P3Rntgakk By: Mariposa joy on 06-17-2024 Free T3 [Mass/Vol] 2.8 pg/mL 2.18-3.98 [facility] Free Triiodothyronine (T3) pg/dL 2.8 pg/mL 2.18-3.98 [facility] T4 Free Directon 06-17-2024 T4 FREE DIRECT 2.00 ng/dL High 0.76-1.46 [facility] Comment on above: Performed By: #### L 501.080 #### [facility] [address] [facility] [place], [place], [id number] T4 freeOrdered By: Mariposa joy on 06-17-2024 Free T4 [Mass/Vol] 2.00 ng/dL High 0.76-1.46 [facility] TSH DL <= 0.005 mIU/L QnOrde red By: Mariposa Parker on 06-17-2024 Thyroid Stimulating Hormone (TSH) 0.451 uIU/mL 0.300-4.200 [facility] TSH Qn 0.451 uIU/mL 0.300-4.200 [facility] Thyroid Stim Hormone (TSH)on 06-17-2024 TSH 0.451 uIU/mL Normal 0.300-4.200 [facility] Comment on above: Performed By: #### L 501.080 #### [facility] [address] [place], [address] Basic Metabolic Profile (BMP )on 05-29-2024 BUN Normal 7-18 [facility] Comment on above: Result Comment: Canc elled via OM: Order cancelled - Patient discharged Performed By: #### L 100.0100, L500.2500 #### [facility] [address] [place], [address] BUN/CRE Normal 10-20 [facility] Comment on above: Result Comment: Canc elled via OM: Order cancelled - Patient discharged Performed By: #### L 100.0100, L500.2500 #### [facility] [address] [place], [address] CA,Total Normal 8.5-10.1 [facility] Comment on above: Result Comment: Canc elled via OM: Order cancelled - Patient discharged Performed By: #### L 100.0100, L500.2500 #### [facility] [address] [place], [address] CL Normal 98-107 [facility] Comment on above: Result Comment: Canc elled via OM: Order cancelled - Patient discharged Performed By: #### L 100.0100, L500.2500 #### [facility] [address] [place], [address] CO2 Normal 21.0-32.0 [facility] Comment on above: Result Comment: Canc elled via OM: Order cancelled - Patient discharged Performed By: #### L 100.0100, L500.2500 #### [facility] [address] [place], [address] CREAT,SERUM Normal 0.55-1.02 [facility] Comment on above: Result Comment: Canc elled via OM: Order cancelled - Patient discharged Performed By: #### L 100.0100, L500.2500 #### [facility] [address] [place], [address] EST GFR Normal >60 [facility] Comment on above: Result Comment: Canc elled via OM: Order cancelled - Patient discharged Performed By: #### L 100.0100, L500.2500 #### [facility] [address] [place], [address] EST GFR - AA Normal >60 [facility] Comment on above: Result Comment: Canc elled via OM: Order cancelled - Patient discharged Performed By: #### L 100.0100, L500.2500 #### [facility] [address] [place], [address] GAP Normal 5-15 [facility] Comment on above: Result Comment: Canc elled via OM: Order cancelled - Patient discharged Performed By: #### L 100.0100, L500.2500 #### [facility] [address] [place], [address] GLU Normal 74-106 [facility] Comment on above: Result Comment: Canc elled via OM: Order cancelled - Patient discharged Performed By: #### L 100.0100, L500.2500 #### [facility] [address] [place], [address] Potassium Normal 3.5-5.1 [facility] Comment on above: Result Comment: Canc elled via OM: Order cancelled - Patient discharged Performed By: #### L 100.0100, L500.2500 #### [facility] [address] [place], [address] Basic Metabolic Profile (BMP) Normal 136-145 [facility] Comment on above: Result Comment: Canc elled via OM: Order cancelled - Patient discharged Performed By: #### L 100.0100, L500.2500 #### [facility] [address] [place], [address] CBC W/Diff, Automatedon 02-0 -2024 Absolute Neut Normal 2.0-7.7 [facility] Comment on above: Result Comment: Canc elled via OM: Order cancelled - Patient discharged Performed By: #### L 100.0100, L500.2500 #### [facility] [address] [place], [address] HCT Normal 37-47 [facility] Comment on above: Result Comment: Canc elled via OM: Order cancelled - Patient discharged Performed By: #### L 100.0100, L500.2500 #### [facility] [address] [place], [address] HGB Normal 12.0-15.0 [facility] Comment on above: Result Comment: Canc elled via OM: Order cancelled - Patient discharged Performed By: #### L 100.0100, L500.2500 #### [facility] [address] [place], [address] MCH Normal 27.0-32.0 [facility] Comment on above: Result Comment: Canc elled via OM: Order cancelled - Patient discharged Performed By: #### L 100.0100, L500.2500 #### [facility] [address] [place], [address] MCHC Normal 32-36 [facility] Comment on above: Result Comment: Canc elled via OM: Order cancelled - Patient discharged Performed By: #### L 100.0100, L500.2500 #### [facility] [address] [place], [address] MCV Normal 81-99 [facility] Comment on above: Result Comment: Canc elled via OM: Order cancelled - Patient discharged Performed By: #### L 100.0100, L500.2500 #### [facility] [address] [place], [address] NEUT% Normal 47-70 [facility] Comment on above: Result Comment: Canc elled via OM: Order cancelled - Patient discharged Performed By: #### L 100.0100, L500.2500 #### [facility] [address] [place], [address] PLT Normal 150-450 [facility] Comment on above: Result Comment: Canc elled via OM: Order cancelled - Patient discharged Performed By: #### L 100.0100, L500.2500 #### [facility] [address] [place], [address] RBC Normal 4.2-5.4 [facility] Comment on above: Result Comment: Canc elled via OM: Order cancelled - Patient discharged Performed By: #### L 100.0100, L500.2500 #### [facility] [address] [place], [address] RDW CV Normal 11.6-14.6 [facility] Comment on above: Result Comment: Canc elled via OM: Order cancelled - Patient discharged Performed By: #### L 100.0100, L500.2500 #### [facility] [address] [place], [address] RDW SD Normal 35.1-43.9 [facility] Comment on above: Result Comment: Canc elled via OM: Order cancelled - Patient discharged Performed By: #### L 100.0100, L500.2500 #### [facility] [address] [place], [address] WBC Normal 4.4-11.0 [facility] Comment on above: Result Comment: Canc elled via OM: Order cancelled - Patient discharged Performed By: #### L 100.0100, L500.2500 #### [facility] [address] [place], [address] Absolute lymphocyte countOrd ered By: Christian Blevins on 05-28-2024 Lymphocytes Auto (Unsp spec) [#/Vol] 0.45 10*3/uL Low 0.83-4.51 [facility] Absolute neutrophil countOrd ered By: Christian Blevins on 05-28-2024 Neutrophils (Bld) [#/Vol] 8.6 10*3/uL High 2.0-7.7 [facility] Automated lymphocyte count a s percentage of total leukocytesOrdered By: Christian Blevins on 05-28-2024 Lymphocytes/100 WBC Auto (Unsp spec) 4.8 % Low 19-41 [facility] Basic Metabolic Profile (BMP )on 05-28-2024 BUN/CRE 28.8 RATIO High 10-20 [facility] Comment on above: Performed By: #### L 100.0100, L500.2500 ####[facility] [address] [place], [address] CA,Total 9.2 mg/dL Normal 8.5-10.1 [facility] Comment on above: Performed By: #### L 100.0100, L500.2500 ####[facility] [address] [place], [address] Chloride [Moles/Vol] 105 mmol/L Normal 98-107 [facility] Comment on above: Performed By: #### L 100.0100, L500.2500 ####[facility] [address] [place], [address] CO2 [Moles/Vol] 27.0 mmol/L Normal 21.0-32.0 [facility] Comment on above: Performed By: #### L 100.0100, L500.2500 ####[facility] [address] [place], [address] Creatinine [Mass/Vol] 0.83 mg/dL Normal 0.55-1.02 [facility] Comment on above: Result Comment: The validity of the calculated GFR GFRAA in patients over 70 years has not been determined. Clinical correlation is essential. Performed By: #### L 100.0100, L500.2500 ####[facility] [address] [place], [address] ECRCL 55.06 ml/min Normal [facility] Comment on above: Performed By: #### L 100.0100, L500.2500 ####[facility] [address] [place], [address] EST GFR - AA 85 mL/min Normal >60 [facility] Comment on above: Result Comment: Afri can Lebanese GFR Calc Performed By: #### L 100.0100, L500.2500 ####[facility] [address] [place], [address] GAP 5 Normal 5-15 [facility] Comment on above: Performed By: #### L 100.0100, L500.2500 ####[facility] [address] [place], [address] GFR/1.73 sq M.predicted among non-blacks MDRD (S/P/Bld) [Vol rate/Area] 70 mL/min/{1.73_m2} Normal >60 [facility] Comment on above: Result Comment: Non- GFR Calc Performed By: #### L 100.0100, L500.2500 ####[facility] [address] [place], [address] Glucose [Mass/Vol] 166 mg/dL High 74-106 [facility] Comment on above: Result Comment: Fast ing Glucose result greater than or equal to 126 mg/dL suggests DIABETES MELLITUS per A.D.A. criteria. Performed By: #### L 100.0100, L500.2500 ####[facility] [address] [place], [address] Potassium [Moles/Vol] 4.6 mmol/L Normal 3.5-5.1 [facility] Comment on above: Performed By: #### L 100.0100, L500.2500 ####[facility] [address] [place], [address] Sodium [Moles/Vol] 137 mmol/L Normal 136-145 [facility] Comment on above: Performed By: #### L 100.0100, L500.2500 ####[facility] [address] [place], [address] Urea nitrogen [Mass/Vol] 24 mg/dL High 7-18 [facility] Comment on above: Performed By: #### L 100.0100, L500.2500 ####[facility] [address] [place], [address] Basophil percentageOrdered B y: Christian Blevins on 05-28-2024 Basophils/100 WBC (Bld) 0.1 % 0-1 [facility] Blood urea nitrogen (BUN)/cr eatinine ratioOrdered By: Christian Blevins on 05-28-2024 Urea nitrogen/Creatinine [Mass ratio] 28.8 mg/mg High 10-20 [facility] CBC W/Diff, Automatedon 02- Absolute Lymph 0.45 X10 3/uL Low 0.83-4.51 [facility] Comment on above: Performed By: #### L 100.0100, L500.2500 ####[facility] [address] [place], [address] Absolute Neut 8.6 X10 3/uL High 2.0-7.7 [facility] Comment on above: Performed By: #### L 100.0100, L500.2500 ####[facility] [address] [place], [address] Basophils/100 WBC (Bld) 0.1 % Normal 0-1 [facility] Comment on above: Performed By: #### L 100.0100, L500.2500 ####[facility] [address] [place], [address] Eosinophils/100 WBC (Bld) 0.0 % Normal 0-5 [facility] Comment on above: Performed By: #### L 100.0100, L500.2500 ####[facility] [address] [place], [address] Erythrocyte distribution width (RBC) [Ratio] 14.2 % Normal 11.6-14.6 [facility] Comment on above: Performed By: #### L 100.0100, L500.2500 ####[facility] [address] [place], [address] Hematocrit (Bld) [Volume fraction] 40.9 % Normal 37-47 [facility] Comment on above: Performed By: #### L 100.0100, L500.2500 ####[facility] [address] [place], [address] Hemoglobin (Bld) [Mass/Vol] 13.2 g/dL Normal 12.0-15.0 [facility] Comment on above: Performed By: #### L 100.0100, L500.2500 ####[facility] [address] [place], [address] IG% 0.700 Normal 0.0-0.9 [facility] Comment on above: Result Comment: IG% - Immature Granulocytes (promyelocytes, myelocytes and metamyelocytes) > 1% indicates that a LEFT SHIFT is Present. Performed By: #### L 100.0100, L500.2500 ####[facility] [address] [place], [address] Lymphocytes/100 WBC (Bld) 4.8 % Low 19-41 [facility] Comment on above: Performed By: #### L 100.0100, L500.2500 ####[facility] [address] [place], [address] MCH (RBC) [Entitic mass] 29.3 pg Normal 27.0-32.0 [facility] Comment on above: Performed By: #### L 100.0100, L500.2500 ####[facility] [address] [place], [address] MCHC (RBC) [Mass/Vol] 32.3 g/dL Normal 32-36 [facility] Comment on above: Performed By: #### L 100.0100, L500.2500 ####[facility] [address] [place], [address] MCV (RBC) [Entitic vol] 90.7 fL Normal 81-99 [facility] Comment on above: Performed By: #### L 100.0100, L500.2500 ####[facility] [address] [place], [address] Monocytes/100 WBC (Bld) 3.4 % Normal 0-10 [facility] Comment on above: Performed By: #### L 100.0100, L500.2500 ####[facility] [address] [place], [address] Neutrophils/100 WBC (Bld) 91.0 % High 47-70 [facility] Comment on above: Performed By: #### L 100.0100, L500.2500 ####[facility] [address] [place], [address] Nucleated RBC (Bld) [#/Vol] 0 10*3/uL Normal 0-5 [facility] Comment on above: Performed By: #### L 100.0100, L500.2500 ####[facility] [address] [place], [address] Platelet mean volume (Bld) [Entitic vol] 13.4 fL High 6.2-12.0 [facility] Comment on above: Performed By: #### L 100.0100, L500.2500 ####[facility] [address] [place], [address] Platelets (Bld) [#/Vol] 126 10*3/uL Low 150-450 [facility] Comment on above: Performed By: #### L 100.0100, L500.2500 ####[facility] [address] [place], [address] RBC (Bld) [#/Vol] 4.51 10*6/uL Normal 4.2-5.4 [facility] Comment on above: Performed By: #### L 100.0100, L500.2500 ####[facility] [address] [place], [address] RDW SD 47.7 fl High 35.1-43.9 [facility] Comment on above: Performed By: #### L 100.0100, L500.2500 ####[facility] [address] [place], [address] WBC (Bld) [#/Vol] 9.4 10*3/uL Normal 4.4-11.0 [facility] Comment on above: Performed By: #### L 100.0100, L500.2500 ####[facility] [address] [place], [address] Carbon dioxide measurementOr dered By: Christian Blevins on 05-28-2024 CO2 [Moles/Vol] 27.0 mmol/L 21.0-32.0 [facility] Chloride measurementOrdered By: Christian Blevins on 05-28-2024 Chloride [Moles/Vol] 105 mmol/L 98-107 [facility] Eosinophil percentageOrdered By: Christian Blevins on 05-28-2024 Eosinophils/100 WBC (Bld) 0.0 % 0-5 [facility] Erythrocyte distribution wid th ratioOrdered By: Christian Blevins on 05-28-2024 Erythrocyte distribution width (RBC) [Ratio] 14.2 % 11.6-14.6 [facility] Erythrocyte distribution wid th standard deviationOrdered By: Christian Blevins on 05-28-2024 Erythrocyte distribution width (RBC) [Entitic vol] 47.7 fL High 35.1-43.9 [facility] Erythrocyte distribution width (RBC) [Ratio] 47.7 fl High 35.1-43.9 [facility] Estimated glomerular filtrat ion rate (GFR) AmericanOrdered By: Christian Blevins on 05-28-2024 Estimated GFR (MDRD) Amer 85 mL/min >60 [facility] Comment on above: GFR Calc Estimation of creatinine wesly aranceOrdered By: Christian Blevins on 05-28-2024 Estimated Creatinine Clearance Calc 55.06 ml/min [facility] Glomerular filtration rate ( GFR) estimationOrdered By: Christian Blevins on 05-28-2024 Estimated GFR (MDRD) Non-Af Amer 70 mL/min >60 [facility] Comment on above: Non- GFR Calc GFR/1.73 sq M.predicted among non-blacks MDRD (S/P/Bld) [Vol rate/Area] 70 mL/min/{1.73_m2} >60 [facility] Comment on above: Non- GFR Calc Glucose measurementOrdered B y: Christian Blevins on 05-28-2024 Glucose [Mass/Vol] 166 mg/dL High 74-106 [facility] Comment on above: Fasting Glucose resu lt greater than or equal to 126 mg/dL suggests DIABETES MELLITUS per A.D.A. criteria. Hematocrit Auto (Bld) [Volum e fraction]Ordered By: Christian Blevins on 05-28-2024 Hematocrit (Bld) [Volume fraction] 40.9 % 37-47 [facility] Hemoglobin measurementOrdere d By: Christian Blevins on 05-28-2024 Hemoglobin (Bld) [Mass/Vol] 13.2 g/dL 12.0-15.0 [facility] Immature granulocytes/100 WB C Auto (Bld)Ordered By: Christian Blevins on 05-28-2024 Immature granulocytes/100 WBC (Bld) 0.700 % 0.0-0.9 [facility] Comment on above: IG% - Immature Granu locytes (promyelocytes, myelocytes and metamyelocytes) > 1% indicates that a LEFT SHIFT is Present. Lymphocytes Auto (Unsp spec) [#/Vol]Ordered By: Christian Blevins on 05-28-2024 Lymphocytes (Bld) [#/Vol] 0.45 10*3/uL Low 0.83-4.51 [facility] Lymphocytes/100 WBC Auto (Un sp spec)Ordered By: Christian Blevins on 05-28-2024 Lymphocytes/100 WBC (Bld) 4.8 % Low 19-41 [facility] MCV (mean corpuscular volume ) determinationOrdered By: Christian Blevins on 05-28-2024 MCV (RBC) [Entitic vol] 90.7 fL 81-99 [facility] Mean corpuscular hemoglobin (MCH) determinationOrdered By: Christian Blevins on 05-28-2024 MCH (RBC) [Entitic mass] 29.3 pg 27.0-32.0 [facility] Mean corpuscular hemoglobin concentration (MCHC) determinationOrdered By: Christian Blevins on 05-28-2024 MCHC (RBC) [Mass/Vol] 32.3 g/dL 32-36 [facility] Mean platelet volume determi nationOrdered By: Christian Blevins on 05-28-2024 Platelet mean volume (Bld) [Entitic vol] 13.4 fL High 6.2-12.0 [facility] Monocyte percentageOrdered B y: Christian Blevins on 05-28-2024 Monocytes/100 WBC (Bld) 3.4 % 0-10 [facility] Neutrophil percentageOrdered By: Christian Blevins on 05-28-2024 Neutrophils/100 WBC (Bld) 91.0 % High 47-70 [facility] Nucleated red blood cell per centageOrdered By: Christian Blevins on 05-28-2024 Nucleated RBC/100 WBC (Bld) [Ratio] 0 % 0-5 [facility] Platelet countOrdered By: Lemuel Blevins on 05-28-2024 Platelets (Bld) [#/Vol] 126 10*3/uL Low 150-450 [facility] Potassium measurementOrdered By: Christian lBevins on 05-28-2024 Potassium [Moles/Vol] 4.6 mmol/L 3.5-5.1 [facility] RBC Auto (Bld) [#/Vol]Ordere d By: Christian Blevins on 05-28-2024 RBC (Bld) [#/Vol] 4.51 10*6/uL 4.2-5.4 [facility] Serum anion gap measurementO rdered By: Christian Blevins on 05-28-2024 Anion gap [Moles/Vol] 5 mmol/L 5-15 [facility] Serum or plasma calcium marilyn urement (mass/volume)Ordered By: Christian Blevins on 05-28-2024 Calcium [Mass/Vol] 9.2 mg/dL 8.5-10.1 [facility] Serum or plasma creatinine m easurement (mass/volume)Ordered By: Christian Blevins on 05-28-2024 Creatinine [Mass/Vol] 0.83 mg/dL 0.55-1.02 [facility] Comment on above: The validity of the calculated GFR & GFRAA in patients over 70 years has not been determined. Clinical correlation is essential. Serum or plasma urea nitroge n measurement (mass/volume)Ordered By: Christian Blevins on 05-28-2024 Urea nitrogen [Mass/Vol] 24 mg/dL High 7-18 [facility] Sodium levelOrdered By: Virgilio Blevins on 05-28-2024 Sodium [Moles/Vol] 137 mmol/L 136-145 [facility] White blood cell (WBC) count Ordered By: Christian Blevins on 05-28-2024 WBC (Bld) [#/Vol] 9.4 10*3/uL 4.4-11.0 [facility] Basic Metabolic Profile (BMP )on 05-27-2024 BUN/CRE 27.4 RATIO High 10-20 [facility] Comment on above: Performed By: #### L 100.0100, L500.2500, L501.5200, L501.2300 ####[facility] [address] [place], [address] CA,Total 9.6 mg/dL Normal 8.5-10.1 [facility] Comment on above: Performed By: #### L 100.0100, L500.2500, L501.5200, L501.2300 ####[facility] [address] [place], [address] Chloride [Moles/Vol] 103 mmol/L Normal 98-107 [facility] Comment on above: Performed By: #### L 100.0100, L500.2500, L501.5200, L501.2300 ####[facility] [address] [place], [address] CO2 [Moles/Vol] 23.0 mmol/L Normal 21.0-32.0 [facility] Comment on above: Performed By: #### L 100.0100, L500.2500, L501.5200, L501.2300 ####[facility] [address] [place], [address] Creatinine [Mass/Vol] 0.95 mg/dL Normal 0.55-1.02 [facility] Comment on above: Result Comment: The validity of the calculated GFR GFRAA in patients over 70 years has not been determined. Clinical correlation is essential. Performed By: #### L 100.0100, L500.2500, L501.5200, L501.2300 ####[facility] [address] [place], [address] ECRCL 48.11 ml/min Normal [facility] Comment on above: Performed By: #### L 100.0100, L500.2500, L501.5200, L501.2300 ####[facility] [address] [place], [address] EST GFR - AA 73 mL/min Normal >60 [facility] Comment on above: Result Comment: Afri can Lebanese GFR Calc Performed By: #### L 100.0100, L500.2500, L501.5200, L501.2300 ####[facility] [address] [place], [address] GAP 11 Normal 5-15 [facility] Comment on above: Performed By: #### L 100.0100, L500.2500, L501.5200, L501.2300 ####[facility] [address] [place], [address] GFR/1.73 sq M.predicted among non-blacks MDRD (S/P/Bld) [Vol rate/Area] 60 mL/min/{1.73_m2} Normal >60 [facility] Comment on above: Result Comment: Non- GFR Calc Performed By: #### L 100.0100, L500.2500, L501.5200, L501.2300 ####[facility] [address] [place], [address] Glucose [Mass/Vol] 157 mg/dL High 74-106 [facility] Comment on above: Result Comment: Fast ing Glucose result greater than or equal to 126 mg/dL suggests DIABETES MELLITUS per A.D.A. criteria. Performed By: #### L 100.0100, L500.2500, L501.5200, L501.2300 ####[facility] [address] [place], [address] Potassium [Moles/Vol] 3.9 mmol/L Normal 3.5-5.1 [facility] Comment on above: Performed By: #### L 100.0100, L500.2500, L501.5200, L501.2300 ####[facility] [address] [place], [address] Sodium [Moles/Vol] 137 mmol/L Normal 136-145 [facility] Comment on above: Performed By: #### L 100.0100, L500.2500, L501.5200, L501.2300 ####[facility] [address] [place], [address] Urea nitrogen [Mass/Vol] 26 mg/dL High 7-18 [facility] Comment on above: Performed By: #### L 100.0100, L500.2500, L501.5200, L501.2300 ####[facility] [address] [place], [address] CBC W/Diff, Automatedon 02-0 5-2025 Absolute Lymph 0.40 X10 3/uL Low 0.83-4.51 [facility] Comment on above: Performed By: #### L 100.0100, L500.2500, L501.5200, L501.2300 ####[facility] [address] [place], [address] Absolute Neut 13.9 X10 3/uL High 2.0-7.7 [facility] Comment on above: Performed By: #### L 100.0100, L500.2500, L501.5200, L501.2300 ####[facility] [address] [place], [address] Basophils/100 WBC (Bld) 0.1 % Normal 0-1 [facility] Comment on above: Performed By: #### L 100.0100, L500.2500, L501.5200, L501.2300 ####[facility] [address] [place], [address] Eosinophils/100 WBC (Bld) 0.0 % Normal 0-5 [facility] Comment on above: Performed By: #### L 100.0100, L500.2500, L501.5200, L501.2300 ####[facility] [address] [place], [address] Erythrocyte distribution width (RBC) [Ratio] 14.1 % Normal 11.6-14.6 [facility] Comment on above: Performed By: #### L 100.0100, L500.2500, L501.5200, L501.2300 ####[facility] [address] [place], [address] Hematocrit (Bld) [Volume fraction] 45.7 % Normal 37-47 [facility] Comment on above: Performed By: #### L 100.0100, L500.2500, L501.5200, L501.2300 ####[facility] [address] [place], [address] Hemoglobin (Bld) [Mass/Vol] 14.4 g/dL Normal 12.0-15.0 [facility] Comment on above: Performed By: #### L 100.0100, L500.2500, L501.5200, L501.2300 ####[facility] [address] [place], [address] IG% 0.800 Normal 0.0-0.9 [facility] Comment on above: Result Comment: IG% - Immature Granulocytes (promyelocytes, myelocytes and metamyelocytes) > 1% indicates that a LEFT SHIFT is Present. Performed By: #### L 100.0100, L500.2500, L501.5200, L501.2300 ####[facility] [address] [place], [address] Lymphocytes/100 WBC (Bld) 2.6 % Low 19-41 [facility] Comment on above: Performed By: #### L 100.0100, L500.2500, L501.5200, L501.2300 ####[facility] [address] [place], [address] MCH (RBC) [Entitic mass] 28.7 pg Normal 27.0-32.0 [facility] Comment on above: Performed By: #### L 100.0100, L500.2500, L501.5200, L501.2300 ####[facility] [address] [place], [address] MCHC (RBC) [Mass/Vol] 31.5 g/dL Low 32-36 [facility] Comment on above: Performed By: #### L 100.0100, L500.2500, L501.5200, L501.2300 ####[facility] [address] [place], [address] MCV (RBC) [Entitic vol] 91.0 fL Normal 81-99 [facility] Comment on above: Performed By: #### L 100.0100, L500.2500, L501.5200, L501.2300 ####[facility] [address] [place], [address] Monocytes/100 WBC (Bld) 5.6 % Normal 0-10 [facility] Comment on above: Performed By: #### L 100.0100, L500.2500, L501.5200, L501.2300 ####[facility] [address] [place], [address] Neutrophils/100 WBC (Bld) 90.9 % High 47-70 [facility] Comment on above: Performed By: #### L 100.0100, L500.2500, L501.5200, L501.2300 ####[facility] [address] [place], [address] Nucleated RBC (Bld) [#/Vol] 0 10*3/uL Normal 0-5 [facility] Comment on above: Performed By: #### L 100.0100, L500.2500, L501.5200, L501.2300 ####[facility] [address] [place], [address] Platelet mean volume (Bld) [Entitic vol] 14.0 fL High 6.2-12.0 [facility] Comment on above: Performed By: #### L 100.0100, L500.2500, L501.5200, L501.2300 ####[facility] [address] [place], [address] Platelets (Bld) [#/Vol] 127 10*3/uL Low 150-450 [facility] Comment on above: Performed By: #### L 100.0100, L500.2500, L501.5200, L501.2300 ####[facility] [address] [place], [address] RBC (Bld) [#/Vol] 5.02 10*6/uL Normal 4.2-5.4 [facility] Comment on above: Performed By: #### L 100.0100, L500.2500, L501.5200, L501.2300 ####[facility] [address] [place], [address] RDW SD 46.8 fl High 35.1-43.9 [facility] Comment on above: Performed By: #### L 100.0100, L500.2500, L501.5200, L501.2300 ####[facility] [address] [place], [address] WBC (Bld) [#/Vol] 15.3 10*3/uL High 4.4-11.0 [facility] Comment on above: Performed By: #### L 100.0100, L500.2500, L501.5200, L501.2300 ####[facility] [address] [place], [address] Magnesiumon 05-27-2024 Magnesium [Mass/Vol] 2.3 mg/dL Normal 1.6-2.6 [facility] Comment on above: Performed By: #### L 100.0100, L500.2500, L501.5200, L501.2300 ####[facility] [address] [place], [address] Magnesium measurementOrdered By: Christain Blevins on 05-27-2024 Magnesium [Mass/Vol] 2.3 mg/dL 1.6-2.6 [facility] Phosphoruson 05-27-2024 Phosphate [Mass/Vol] 4.0 mg/dL Normal 2.5-4.9 [facility] Comment on above: Performed By: #### L 100.0100, L500.2500, L501.5200, L501.2300 ####[facility] [address] [place], [address] Phosphorus measurementOrdere d By: Christian Blevins on 05-27-2024 Phosphorus Level 4.0 mg/dL 2.5-4.9 [facility] Albumin to globulin ratioOrd ered By: Meredith Mcgee on 05-26-2024 Albumin/Globulin [Mass ratio] 0.9 {ratio} Normal 0.9-2.4 [facility] Comment on above: Performed By: #### L 501.080 #### [facility] [address] [place], [address] BNP,B-Type NATRIURETIC PEPTI Lola 05-26-2024 Natriuretic peptide B (Bld) [Mass/Vol] 1865.1 pg/mL High 0-100 [facility] Comment on above: Performed By: #### L 500.4100, L100.0100, L500.4050, L501.5200, L501.9520, L501.2300 #### [facility] [address] [place], [address] Basic Metabolic Profile (BMP )on 05-26-2024 BUN/CRE 16.7 RATIO Normal 10-20 [facility] Comment on above: Performed By: #### L 500.4100, L100.0100, L500.4050, L501.5200, L501.9520, L501.2300 #### [facility] [address] [place], [address] CA,Total 9.1 mg/dL Normal 8.5-10.1 [facility] Comment on above: Performed By: #### L 500.4100, L100.0100, L500.4050, L501.5200, L501.9520, L501.2300 #### [facility] [address] [place], [address] Chloride [Moles/Vol] 100 mmol/L Normal 98-107 [facility] Comment on above: Performed By: #### L 500.4100, L100.0100, L500.4050, L501.5200, L501.9520, L501.2300 #### [facility] [address] [place], [address] CO2 [Moles/Vol] 25.0 mmol/L Normal 21.0-32.0 [facility] Comment on above: Performed By: #### L 500.4100, L100.0100, L500.4050, L501.5200, L501.9520, L501.2300 #### [facility] [address] [place], [address] Creatinine [Mass/Vol] 0.90 mg/dL Normal 0.55-1.02 [facility] Comment on above: Result Comment: The validity of the calculated GFR GFRAA in patients over 70 years has not been determined. Clinical correlation is essential. Performed By: #### L 500.4100, L100.0100, L500.4050, L501.5200, L501.9520, L501.2300 #### [facility] [address] [place], [address] EST GFR - AA 78 mL/min Normal >60 [facility] Comment on above: Result Comment: Afri can Lebanese GFR Calc Performed By: #### L 500.4100, L100.0100, L500.4050, L501.5200, L501.9520, L501.2300 #### [facility] [address] [place], [address] GAP 10 Normal 5-15 [facility] Comment on above: Performed By: #### L 500.4100, L100.0100, L500.4050, L501.5200, L501.9520, L501.2300 #### [facility] [address] [place], [address] GFR/1.73 sq M.predicted among non-blacks MDRD (S/P/Bld) [Vol rate/Area] 64 mL/min/{1.73_m2} Normal >60 [facility] Comment on above: Result Comment: Non- GFR Calc Performed By: #### L 500.4100, L100.0100, L500.4050, L501.5200, L501.9520, L501.2300 #### [facility] [address] [place], [place], [id number] ([address] Glucose [Mass/Vol] 114 mg/dL High 74-106 [facility] Comment on above: Result Comment: Fast ing Glucose result from 100 to 125 mg/dL suggests IMPAIRED HOMEOSTASIS per A.D.A. criteria. Performed By: #### L 500.4100, L100.0100, L500.4050, L501.5200, L501.9520, L501.2300 #### [facility] [address] [place], [address] Potassium [Moles/Vol] 3.2 mmol/L Low 3.5-5.1 [facility] Comment on above: Performed By: #### L 500.4100, L100.0100, L500.4050, L501.5200, L501.9520, L501.2300 #### [facility] [address] [place], [address] Sodium [Moles/Vol] 136 mmol/L Normal 136-145 [facility] Comment on above: Performed By: #### L 500.4100, L100.0100, L500.4050, L501.5200, L501.9520, L501.2300 #### [facility] [address] [place], [address] Urea nitrogen [Mass/Vol] 15 mg/dL Normal 7-18 [facility] Comment on above: Performed By: #### L 500.4100, L100.0100, L500.4050, L501.5200, L501.9520, L501.2300 #### [facility] [address] [place], [address] Bedside Glucoseon 05-26-2024 FINGERSTICK GLU 142 mg/dL High 74-106 [facility] Comment on above: Result Comment: MARKIE OROPEZA OF PATIENT CARE PER NURSING PROTOCOL Performed By: #### L 501.080 #### [facility] [address] [place], [address] Bilirubin, totalOrdered By: Meredith Mcgee on 05-26-2024 Bilirubin [Mass/Vol] 1.10 mg/dL High 0.20-1.00 [facility] Comment on above: For patients on eltr ombopag therapy, use of Dimension [place] TBIL is not recommended. Result Comment: For patients on eltrombopag therapy, use of Dimension [place] TBIL is not recommended. Performed By: #### L 501.080 #### [facility] [address] [place], [address] CBC W/Diff, Automatedon 020 Absolute Lymph 0.37 X10 3/uL Low 0.83-4.51 [facility] Comment on above: Performed By: #### L 501.080 #### [facility] [address] [place], [address] Absolute Neut 4.5 X10 3/uL Normal 2.0-7.7 [facility] Comment on above: Performed By: #### L 501.080 #### [facility] [address] [place], [address] Basophils/100 WBC (Bld) 0.4 % Normal 0-1 [facility] Comment on above: Performed By: #### L 501.080 #### [facility] [address] [place], [address] Eosinophils/100 WBC (Bld) 0.0 % Normal 0-5 [facility] Comment on above: Performed By: #### L 501.080 #### [facility] [address] [place], [address] Erythrocyte distribution width (RBC) [Ratio] 14.0 % Normal 11.6-14.6 [facility] Comment on above: Performed By: #### L 501.080 #### [facility] [address] [place], [address] Hematocrit (Bld) [Volume fraction] 44.3 % Normal 37-47 [facility] Comment on above: Performed By: #### L 501.080 #### [facility] [address] [place], [address] Hemoglobin (Bld) [Mass/Vol] 14.0 g/dL Normal 12.0-15.0 [facility] Comment on above: Performed By: #### L 501.080 #### [facility] [address] [place], [address] IG% 0.200 Normal 0.0-0.9 [facility] Comment on above: Result Comment: IG% - Immature Granulocytes (promyelocytes, myelocytes and metamyelocytes) > 1% indicates that a LEFT SHIFT is Present. Performed By: #### L 501.080 #### [facility] [address] [place], [address] Lymphocytes/100 WBC (Bld) 7.4 % Low 19-41 [facility] Comment on above: Performed By: #### L 501.080 #### [facility] [address] [place], [address] MCH (RBC) [Entitic mass] 28.6 pg Normal 27.0-32.0 [facility] Comment on above: Performed By: #### L 501.080 #### [facility] [address] [place], [address] MCHC (RBC) [Mass/Vol] 31.6 g/dL Low 32-36 [facility] Comment on above: Performed By: #### L 501.080 #### [facility] [address] [place], [address] MCV (RBC) [Entitic vol] 90.6 fL Normal 81-99 [facility] Comment on above: Performed By: #### L 501.080 #### [facility] [address] [place], [address] Monocytes/100 WBC (Bld) 1.6 % Normal 0-10 [facility] Comment on above: Performed By: #### L 501.080 #### [facility] [address] [place], [address] Neutrophils/100 WBC (Bld) 90.4 % High 47-70 [facility] Comment on above: Performed By: #### L 501.080 #### [facility] [address] [place], [address] Nucleated RBC (Bld) [#/Vol] 0 10*3/uL Normal 0-5 [facility] Comment on above: Performed By: #### L 501.080 #### [facility] [address] [place], [address] Platelet mean volume (Bld) [Entitic vol] 12.6 fL High 6.2-12.0 [facility] Comment on above: Performed By: #### L 501.080 #### [facility] [address] [place], [address] Platelets (Bld) [#/Vol] 134 10*3/uL Low 150-450 [facility] Comment on above: Performed By: #### L 501.080 #### [facility] [address] [place], [address] RBC (Bld) [#/Vol] 4.89 10*6/uL Normal 4.2-5.4 [facility] Comment on above: Performed By: #### L 501.080 #### [facility] [address] [place], [address] RDW SD 46.7 fl High 35.1-43.9 [facility] Comment on above: Performed By: #### L 501.080 #### [facility] [address] [place], [address] WBC (Bld) [#/Vol] 5.0 10*3/uL Normal 4.4-11.0 [facility] Comment on above: Performed By: #### L 501.080 #### [facility] [address] [place], [address] Absolute Lymph 0.66 X10 3/uL Low 0.83-4.51 [facility] Comment on above: Performed By: #### L 500.4100, L100.0100, L500.4050, L501.5200, L501.9520, L501.2300 #### [facility] [address] [place], [address] Absolute Neut 6.3 X10 3/uL Normal 2.0-7.7 [facility] Comment on above: Performed By: #### L 500.4100, L100.0100, L500.4050, L501.5200, L501.9520, L501.2300 #### [facility] [address] [place], [address] Basophils/100 WBC (Bld) 0.8 % Normal 0-1 [facility] Comment on above: Performed By: #### L 500.4100, L100.0100, L500.4050, L501.5200, L501.9520, L501.2300 #### [facility] [address] [place], [address] Eosinophils/100 WBC (Bld) 0.1 % Normal 0-5 [facility] Comment on above: Performed By: #### L 500.4100, L100.0100, L500.4050, L501.5200, L501.9520, L501.2300 #### [facility] [address] [place], [address] Erythrocyte distribution width (RBC) [Ratio] 14.2 % Normal 11.6-14.6 [facility] Comment on above: Performed By: #### L 500.4100, L100.0100, L500.4050, L501.5200, L501.9520, L501.2300 #### [facility] [address] [place], [address] Hematocrit (Bld) [Volume fraction] 42.2 % Normal 37-47 [facility] Comment on above: Performed By: #### L 500.4100, L100.0100, L500.4050, L501.5200, L501.9520, L501.2300 #### [facility] [address] [place], [address] Hemoglobin (Bld) [Mass/Vol] 13.8 g/dL Normal 12.0-15.0 [facility] Comment on above: Performed By: #### L 500.4100, L100.0100, L500.4050, L501.5200, L501.9520, L501.2300 #### [facility] [address] [place], [address] IG% 2.600 High 0.0-0.9 [facility] Comment on above: Result Comment: IG% - Immature Granulocytes (promyelocytes, myelocytes and metamyelocytes) > 1% indicates that a LEFT SHIFT is Present. Performed By: #### L 500.4100, L100.0100, L500.4050, L501.5200, L501.9520, L501.2300 #### [facility] [address] [place], [address] Lymphocytes/100 WBC (Bld) 8.5 % Low 19-41 [facility] Comment on above: Performed By: #### L 500.4100, L100.0100, L500.4050, L501.5200, L501.9520, L501.2300 #### [facility] [address] [place], [address] MCH (RBC) [Entitic mass] 29.2 pg Normal 27.0-32.0 [facility] Comment on above: Performed By: #### L 500.4100, L100.0100, L500.4050, L501.5200, L501.9520, L501.2300 #### [facility] [address] [place], [address] MCHC (RBC) [Mass/Vol] 32.7 g/dL Normal 32-36 [facility] Comment on above: Performed By: #### L 500.4100, L100.0100, L500.4050, L501.5200, L501.9520, L501.2300 #### [facility] [address] [place], [address] MCV (RBC) [Entitic vol] 89.4 fL Normal 81-99 [facility] Comment on above: Performed By: #### L 500.4100, L100.0100, L500.4050, L501.5200, L501.9520, L501.2300 #### [facility] [address] [place], [address] Monocytes/100 WBC (Bld) 7.2 % Normal 0-10 [facility] Comment on above: Performed By: #### L 500.4100, L100.0100, L500.4050, L501.5200, L501.9520, L501.2300 #### [facility] [address] [place], [address] Neutrophils/100 WBC (Bld) 80.8 % High 47-70 [facility] Comment on above: Performed By: #### L 500.4100, L100.0100, L500.4050, L501.5200, L501.9520, L501.2300 #### [facility] [address] [place], [address] Nucleated RBC (Bld) [#/Vol] 0 10*3/uL Normal 0-5 [facility] Comment on above: Performed By: #### L 500.4100, L100.0100, L500.4050, L501.5200, L501.9520, L501.2300 #### [facility] [address] [place], [address] Platelet mean volume (Bld) [Entitic vol] 13.4 fL High 6.2-12.0 [facility] Comment on above: Performed By: #### L 500.4100, L100.0100, L500.4050, L501.5200, L501.9520, L501.2300 #### [facility] [address] [place], [address] Platelets (Bld) [#/Vol] 131 10*3/uL Low 150-450 [facility] Comment on above: Performed By: #### L 500.4100, L100.0100, L500.4050, L501.5200, L501.9520, L501.2300 #### [facility] [address] [place], [address] RBC (Bld) [#/Vol] 4.72 10*6/uL Normal 4.2-5.4 [facility] Comment on above: Performed By: #### L 500.4100, L100.0100, L500.4050, L501.5200, L501.9520, L501.2300 #### [facility] [address] [place], [address] RDW SD 46.0 fl High 35.1-43.9 [facility] Comment on above: Performed By: #### L 500.4100, L100.0100, L500.4050, L501.5200, L501.9520, L501.2300 #### [facility] [address] [place], [address] WBC (Bld) [#/Vol] 7.8 10*3/uL Normal 4.4-11.0 [facility] Comment on above: Performed By: #### L 500.4100, L100.0100, L500.4050, L501.5200, L501.9520, L501.2300 #### [facility] [address] [place], [address] Chest 1 View (Portable)on Chest 1 View (Portable) [facility] Imaging Services [address] [place] [address] Chest 1 View (Portable) MR#: [id number] Acct: [id number] Name: BARBARA HOLDER Rep #: [id number] : 1945 F 79 From: Armani Dyson DO PCP: Dr. Mariposa Parker DO Status: [facility] ER Study: Chest 1 View (Portable) Date of Exam: 05/26/24 Exam# [id number] Ordering Dr: Kali Ya DO PROCEDURE: CHEST 1 VIEW (PORTABLE) REASON FOR EXAM: Cough. TECHNIQUE: Frontal view of the chest. COMPARISON: Chest x-ray from 04/16/2024. FINDINGS: Cardiomegaly is present. There is mild prominence of the pulmonary interstitium. No consolidation, pleural effusion, or pneumothorax is present. Degenerative changes are identified. RAD/Chest 1 View (Portable) IMPRESSION: Cardiomegaly and mild prominence of the pulmonary interstitium. No significant change. Reading Location: [facility] CC: Dr. Mariposa Parker DO; Kali Ya DO Aircraft Communicator: Signed Normal [facility] Comprehensive Metabolic Prof ilon 05-26-2024 ALK P 49 U/L Normal 45-117 [facility] Comment on above: Performed By: #### L 501.080 #### [facility] [address] [place], [address] BUN/CRE 16.3 RATIO Normal 10-20 [facility] Comment on above: Performed By: #### L 501.080 #### [facility] [address] [place], [address] CA,Total 9.4 mg/dL Normal 8.5-10.1 [facility] Comment on above: Performed By: #### L 501.080 #### [facility] [address] [place], [address] Chloride [Moles/Vol] 104 mmol/L Normal 98-107 [facility] Comment on above: Performed By: #### L 501.080 #### [facility] [address] [place], [address] CO2 [Moles/Vol] 23.0 mmol/L Normal 21.0-32.0 [facility] Comment on above: Performed By: #### L 501.080 #### [facility] [address] [place], [address] Creatinine [Mass/Vol] 1.04 mg/dL High 0.55-1.02 [facility] Comment on above: Result Comment: The validity of the calculated GFR GFRAA in patients over 70 years has not been determined. Clinical correlation is essential. Performed By: #### L 501.080 #### [facility] [address] [place], [address] ECRCL 43.10 ml/min Normal [facility] Comment on above: Performed By: #### L 501.080 #### [facility] [address] [place], [address] EST GFR - AA 66 mL/min Normal >60 [facility] Comment on above: Result Comment: Afri can Lebanese GFR Calc Performed By: #### L 501.080 #### [facility] [address] [place], [address] GAP 11 Normal 5-15 [facility] Comment on above: Performed By: #### L 501.080 #### [facility] [address] [place], [address] GFR/1.73 sq M.predicted among non-blacks MDRD (S/P/Bld) [Vol rate/Area] 54 mL/min/{1.73_m2} Low >60 [facility] Comment on above: Result Comment: Non- GFR Calc Performed By: #### L 501.080 #### [facility] [address] [place], [address] Glucose [Mass/Vol] 149 mg/dL High 74-106 [facility] Comment on above: Result Comment: Fast ing Glucose result greater than or equal to 126 mg/dL suggests DIABETES MELLITUS per A.D.A. criteria. Performed By: #### L 501.080 #### [facility] [address] [place], [address] Potassium [Moles/Vol] 3.3 mmol/L Low 3.5-5.1 [facility] Comment on above: Performed By: #### L 501.080 #### [facility] [address] [place], [place], [address] Sodium [Moles/Vol] 138 mmol/L Normal 136-145 [facility] Comment on above: Performed By: #### L 501.080 #### [facility] [address] [place], [place], [address] T PROT 7.2 g/dL Normal 6.4-8.2 [facility] Comment on above: Performed By: #### L 501.080 #### [facility] [address] [place], [place], [address] Urea nitrogen [Mass/Vol] 17 mg/dL Normal 7-18 [facility] Comment on above: Performed By: #### L 501.080 #### [facility] [address] [place], [place], [address] Comprehensive Metabolic Prof ilOrdered By: Meredith Mcgee on 05-26-2024 AST [Catalytic activity/Vol] 22 U/L Normal 15-37 [facility] Comment on above: Performed By: #### L 501.080 #### [facility] [address] [place], [place], [address] Emergency Department Summary on 05-26-2024 Emergency Department Summary [facility] Medical Records Department [address] [place] [address] Emergency Department Summary 05/26/24 MR#: [id number] Acct: [id number] Name: BARBARA HOLDER Rep #: [id number] : 1945 79 From: Kali Ya DO PCP: Dr. Mariposa Parker, Status:REG ER Location: ED HPI History of Present Illness Chief Complaint: Shortness of Breath Informant: patient and family Narrative Narrative: Patient is an 79-year-old female with past medical history of hypothyroidism hypertension and congestive heart failure. She reports that in the last 24 hours she has had increased congestion cough fatigue and shortness of breath. She denies any known sick contacts. Other than the history of CHF she denies any history of lung pathology such as asthma COPD or emphysema. However as her shortness of breath sensation has steadily worsened throughout the last 24 hours she presents for evaluation [facility] Medical History Cardiomyopathy Obesity (BMI 30.0-34.9) New onset of congestive heart failure Acute respiratory insufficiency Polymyalgia rheumatica Dyspnea on exertion Rheumatoid arthritis Gout Hypothyroidism Essential hypertension Type 2 diabetes mellitus Home Medications ???Medication ???Instructions ???Recorded ???Last Taken ???Type gabapentin 100 mg capsule 100 mg PO BID nerve pain 04/30/15 05/25/24 History allopurinol 100 mg tablet 200 mg PO DAILY gout 10/18/2007/14 History acetaminophen 500 mg tablet 500 mg PO Q6H PRN Pain 10/20/20 Un known History albuterol sulfate 90 mcg/actuation 1 puff inhalation Q4H PRN Unknown History aerosol inhaler shortness of breath or wheezing calcium 600 mg (as carbonate)-vit 1 tab PO DAILY supplement 4 Unknown History D3 20 mcg (800 unit) chewable tablet (Caltrate plus D) hydroxychloroquine 200 mg tablet 200 mg PO BID 04/16/24 05/25/24 Hi story (Plaquenil) mometasone-formoterol HFA 100 2 puff inhalation BID breathing 05/25/24 History mcg-5 mcg/actuation aerosol inhaler (Dulera) ondansetron 4 mg disintegrating 4 - 8 mg PO Q6H PRN PRN nausea Unknown History tablet levothyroxine 125 mcg tablet 125 mcg PO DAILY@0600 #30 tabs 05/25/24 Rx aspirin 81 mg tablet,delayed 81 mg PO QDAY 05/08/24 05/25/24 Hi story release (Adult Low Dose Aspirin) carvedilol 6.25 mg tablet 6.25 mg PO BID #60 tabs 05/08/24 0 05/25/24 Rx furosemide 40 mg tablet 40 mg PO DAILY #90 tabs 05/08/24 0 05/25/24 Rx spironolactone 25 mg tablet 25 mg PO DAILY #90 tabs 05/08/24 U nknown Rx azithromycin 250 mg tablet 250 mg PO DAILY 05/26/24 05/25/24 History hydroxyzine HCl 10 mg tablet 10 - 20 mg PO QHS 05/26/24 Unknown History potassium chloride 20 mEq 20 meq PO DAILY 05/26/24 05/25/24 History tablet,extended release(part/cryst) triamterene 37.5 1 tab PO DAILY 05/26/24 Unknown Hi story mg-hydrochlorothiazid e 25 mg tablet Allergy/AdvReac Type Severity Reaction Status Date / Time amoxicillin AdvReac GI upset, Verified 05/25/24 22:56 Nausea and vomiting Family History Mother History of DVT (deep vein thrombosis) Hypertension Father Cancer Lung Sister CAD (coronary artery disease) History of coronary artery bypass surgery Surgical History History of left heart catheterization (LHC) ( 11/15/20) H/O right knee surgery History of carpal tunnel surgery History of hysterectomy History of appendectomy Social History (Updated 05/26/24 @ 01:[address] Meredith Mcgee MD) household members: none Smoking Status: Never smoker alcohol intake: current details: occasional substance use type: does not use caffeine: Yes Type: coffee Number of servings: 3 and tea ROS ROS ED Constitutional Constitutional ED: Reports chills, fever(s) and subjective ENT ENT ED: Reports rhinorrhea and sore throat Cardiovascular Cardiovascular: Denies chest pain Respiratory/Chest Respiratory/Chest: Reports cough and dyspnea Gastrointestinal Gastrointestinal: Reports nausea; Denies abdominal pain, diarrhea or vomiting Genitourinary Genitourinary ED: Denies dysuria Musculoskeletal Musculoskeletal: Reports myalgias Integumentary Denies rash Neurologic Neurologic: Reports headache(s) and weakness Hematologic/Lymphatic Hematologic/Lymphatic : Denies easy bleeding or easy bruising Allergic/Immunologic Allergic/Immunologic ED: Denies mouth swelling or tongue swelling EXAM Physical Exam Const Vital Signs: 05/25/24 22:55 05/25/24 22:56 05/25/24 23:45 Temperature 100.4 F H 100.4 F H Temperature Source Oral Oral Pulse Rate 96 96 (more content not included)... Normal [facility] Gl[facility] deOrdered By: Meredith Mcgee on 05-26-2024 Bedside Glucose (Misc Panel) 142 mg/dL High 74-106 [facility] Comment on above: MANAGEMENT OF PATIEN T CARE PER NURSING PROTOCOL Glucose [Mass/Vol] 142 mg/dL High 74-106 [facility] Comment on above: MANAGEMENT OF PATIEN T CARE PER NURSING PROTOCOL H AND P Exam - Hospitaliston 05-26-2024 H&P Exam - Hospitalist [facility] Medical Records Department [address] [place] [address] H P Exam - Hospitalist 05/26/24 0157 MR#: [id number] Acct: [id number] Name: BARBARA HOLDER Rep #: [id number] : 1945 79 From: Meredith Mcgee MD PCP: Dr. Mariposa Parker, DO Status:ADM IN Location: [place] [address] HPI - General General Date of Admission: 05/26/24 Date of Service: 05/26/24 Chief Complaint: Dyspnea, cough. HPI Narrative The patient is an 79-year-old female with past medical history hypothyroidism, hypertension, gout, PMR, diabetes mellitus type 2, gout, rheumatoid arthritis, obesity, HFrEF, COPD who presents to the [facility] ED on 06/16 with history of increasing fatigue, malaise, cough, congestion, headache, body aches as well as dyspnea with fever 102 with ongoing symptoms worsening since the day prior prompting eventual ED evaluation to be cautious. In the ED patient ambulatory attempts with desaturation down to 87%. Workup in the ED included T1 100.4, heart rate 96, BP 107/57, respiratory rate 16, 93% on room air however desaturating down to 87% with ambulation and 88% at rest, most recent repeat vitals T99.1, heart rate 91, BP 92/58, respiratory rate 31, 94% on 2 L nasal cannula, CBC with WBC 7.8, human 13.8, platelets 131 with increased immature granulocyte, BMP with potassium 3.2, glucose 114, magnesium 1.7, BNP pending upon request evaluation of patient, chest x-ray with cardiomegaly and mild prominence of the pulmonary interstitium not significantly changed from most recent, rapid SARS COVID/influenza/RSV with positive influenza A. In the ED patient ministered 1 L normal saline, Tylenol 1000 mg p.o. x 1, albuterol and DuoNeb therapy as well as Solu-Medrol 100 mg IV x 1 in addition to Tamiflu 75 mg p.o. x 1. [facility] Medical History Cardiomyopathy Obesity (BMI 30.0-34.9) New onset of congestive heart failure Acute respiratory insufficiency Polymyalgia rheumatica Dyspnea on exertion Rheumatoid arthritis Gout Hypothyroidism Essential hypertension Type 2 diabetes mellitus Home Medications ???Medication ???Instructions ???Recorded ???Last Taken ???Type gabapentin 100 mg capsule 100 mg PO BID nerve pain 04/30/15 05/25/24 History allopurinol 100 mg tablet 200 mg PO DAILY gout 10/18/2007/14 History acetaminophen 500 mg tablet 500 mg PO Q6H PRN Pain 10/20/20 Un known History albuterol sulfate 90 mcg/actuation 1 puff inhalation Q4H PRN Unknown History aerosol inhaler shortness of breath or wheezing calcium 600 mg (as carbonate)-vit 1 tab PO DAILY supplement 4 Unknown History D3 20 mcg (800 unit) chewable tablet (Caltrate plus D) hydroxychloroquine 200 mg tablet 200 mg PO BID 04/16/24 05/25/24 Hi story (Plaquenil) mometasone-formoterol HFA 100 2 puff inhalation BID breathing 05/25/24 History mcg-5 mcg/actuation aerosol inhaler (Dulera) ondansetron 4 mg disintegrating 4 - 8 mg PO Q6H PRN PRN nausea Unknown History tablet levothyroxine 125 mcg tablet 125 mcg PO DAILY@0600 #30 tabs 05/25/24 Rx aspirin 81 mg tablet,delayed 81 mg PO QDAY 05/08/24 05/25/24 Hi story release (Adult Low Dose Aspirin) carvedilol 6.25 mg tablet 6.25 mg PO BID #60 tabs 05/08/24 0 05/25/24 Rx furosemide 40 mg tablet 40 mg PO DAILY #90 tabs 05/08/24 0 05/25/24 Rx spironolactone 25 mg tablet 25 mg PO DAILY #90 tabs 05/08/24 U nknown Rx azithromycin 250 mg tablet 250 mg PO DAILY 05/26/24 05/25/24 History hydroxyzine HCl 10 mg tablet 10 - 20 mg PO QHS 05/26/24 Unknown History potassium chloride 20 mEq 20 meq PO DAILY 05/26/24 05/25/24 History tablet,extended release(part/cryst) triamterene 37.5 1 tab PO DAILY 05/26/24 Unknown Hi story mg-hydrochlorothiazid e 25 mg tablet Allergy/AdvReac Type Severity Reaction Status Date / Time amoxicillin AdvReac GI upset, Verified 05/25/24 22:56 Nausea and vomiting Family History Mother History of DVT (deep vein thrombosis) Hypertension Father Cancer Lung Sister CAD (coronary artery disease) History of coronary artery bypass surgery Surgical History History of left heart catheterization (LHC) ( 11/15/20) H/O right knee surgery History of carpal tunnel surgery History of hysterectomy History of appendectomy Social History (Updated 05/26/24 @ 01:[address] Meredith Mcgee MD) household members: none Smoking Status: Never smoker alcohol intake: current details: occasional substance use type: does not use caffeine: Yes Type: coffee Number of servings: 3 and tea ROS ROS Narrative Admission Review of Systems: CONSTITUTIONAL: No weight loss, + fever, (more content not included)... Normal [facility] M100.678on 05-26-2024 M100.678 Normal Reference Range = Negative FLUABV+SARS-CoV-2+RSV Pnl Resp IHSAN+probe GeneXpert Instrument, PCR method FLUABV+SARS-CoV-2+RSV Pnl Resp IHSAN+probe CRITICAL VALUE CALLED [facility] 05/26/24 Kamaljit Galarza. RESULTS READ BACK BY SAME. FLUABV+SARS-CoV-2+RSV Pnl Resp IHSAN+probe FLUABV+SARS-CoV-2+RSV Pnl Resp IHSAN+probe Copy of report sent to Infection Control Printer [id number] 05/26/247 [place]ALT. SARS-CoV-2 (COVID 19) Negative INFLUENZA A A Positive A INFLUENZA B Negative RSV PCR Negative INFLUENZAE A Normal [facility] Comment on above: Performed By: #### L 100.0100, L500.2500 #### [facility] [address] [place], [address] Magnesiumon 05-26-2024 Magnesium [Mass/Vol] 1.7 mg/dL Normal 1.6-2.6 [facility] Comment on above: Performed By: #### L 500.4100, L100.0100, L500.4050, L501.5200, L501.9520, L501.2300 #### [facility] [address] [place], [address] Procalcitoninon 05-26-2024 Procalcitonin 0.16 ng/mL High 0.00-0.09 [facility] Comment on above: Result Comment: A procalcitonin (PCT) level above 2.0 ng/mL on the first day of ICU admission is associated with a high risk for progression to severe sepsis and/or septic shock. A PCT level below 0.5 ng/mL on the first day of ICU admission is associated with a low risk for progression to severe and/or septic shock. Note: Concentrations <0.5 ng/mL do not exclude an infection on account of localized infections (without systemic signs) which can be associated with such low concentrations, or a systemic infection in its initial stages (<6 hours). Furthermore, increased procalcitonin can occur without infection. PCT concentrations between 0.5 and 2.0 ng/mL should be interpreted taking into account the patient's history. It is recommended to retest PCT within 6-24 hours if any concentrations <2 ng/mL are obtained. Performed By: #### L 501.080 #### [facility] [address] [place], [place], [id number] Procalcitonin [Mass/Vol]Orde red By: Meredith White on 05-26-2024 Procalcitonin 0.16 ng/mL High 0.00-0.09 [facility] Comment on above: A procalcitonin (PCT ) level above 2.0 ng/mL on the first day of ICU admission is associated with a high risk for progression to severe sepsis and/or septic shock. A PCT level below 0.5 ng/mL on the first day of ICU admission is associated with a low risk for progression to severe and/or septic shock. Note: Concentrations <0.5 ng/mL do not exclude an infection on account of localized infections (without systemic signs) which can be associated with such low concentrations, or a systemic infection in its initial stages (<6 hours). Furthermore, increased procalcitonin can occur without infection. PCT concentrations between 0.5 and 2.0 ng/mL should be interpreted taking into account the patient's history. It is recommended to retest PCT within 6-24 hours if any concentrations <2 ng/mL are obtained. RESPIRATORY PANEL MOLECULARo n 05-26-2024 RP PANEL ADENOVIRUS Not Detected INFLUENZA A A Positive for INFLUENZA A by NAAT technology A INFLUENZA A (SUBTYPE H1) A Positive for INFLUENZA A SUBTYPE H1 by NAAT technologyA INFLUENZA A (SUBTYPE H3) Not Detected INFLUENZA B Not Detected HUMAN METAPHNEUMO Not Detected PARAINFLUENZA 1 Not Detected PARAINFLUENZA 2 Not Detected PARAINFLUENZA 3 Not Detected PARAINFLUENZA 4 Not Detected RHINOVIRUS Not Detected RSV A Not Detected RSV B Not Detected INFLUENZA A (SUBTYPE H1) Normal [facility] Comment on above: Performed By: #### M 100.638 ####[facility] [id number] [place], [place], [id number] Respiratory pathogens DNA an d RNA panel IHSAN+probe (Resp)Ordered By: on 05-26-2024 Respiratory Panel (PCR) Influenza A (Sub type H1) Abnormal [facility] Respiratory pathogens detect ion panel by molecular detection methodOrdered By: on 05-26-2024 Respiratory pathogens DNA and RNA panel IHSAN+probe (Resp) Influenza A (Subtype H1) Abnormal [facility] Serum globulin measurementOr dered By: Meredith Arely on 05-26-2024 Globulin (S) [Mass/Vol] 3.8 g/dL Normal 2.2-4.2 [facility] Comment on above: Performed By: #### L 501.080 #### [facility] [address] [place], [place], [address] Serum or plasma alanine davis otransferase (ALT) measurementOrdered By: Meredith Mcgee on 05-26-2024 ALT [Catalytic activity/Vol] 23 U/L Normal 13-56 [facility] Comment on above: Performed By: #### L 501.080 #### [facility] [address] [facility] [address] [place], [place], [id number] (235) Serum or plasma albumin marilyn urement (mass/volume)Ordered By: Meredith Mcgee on 05-26-2024 Albumin [Mass/Vol] 3.4 g/dL Normal 3.2-5.0 [facility] Comment on above: Performed By: #### L 501.080 #### [facility] [address] [facility], [address] Serum or plasma alkaline [place] sphatase measurementOrdered By: Meredith Mcgee on 05-26-2024 ALP [Catalytic activity/Vol] 49 U/L 45-117 [facility] Serum procalcitonin measurem entOrdered By: Meredith Mcgee on 05-26-2024 Procalcitonin [Mass/Vol] 0.16 ng/mL High 0.00-0.09 [facility] Comment on above: A procalcitonin (PCT ) level above 2.0 ng/mL on the first day of ICU admission is associated with a high risk for progression to severe sepsis and/or septic shock. A PCT level below 0.5 ng/mL on the first day of ICU admission is associated with a low risk for progression to severe and/or septic shock. Note: Concentrations <0.5 ng/mL do not exclude an infection on account of localized infections (without systemic signs) which can be associated with such low concentrations, or a systemic infection in its initial stages (<6 hours). Furthermore, increased procalcitonin can occur without infection. PCT concentrations between 0.5 and 2.0 ng/mL should be interpreted taking into account the patient's history. It is recommended to retest PCT within 6-24 hours if any concentrations <2 ng/mL are obtained. Total proteinOrdered By: Tea Mcgee on 05-26-2024 Protein [Mass/Vol] 7.2 g/dL 6.4-8.2 [facility] BNP (brain natriuretic pepti de measurement)Ordered By: Kali Ya on 05-25-2024 Natriuretic peptide B (Bld) [Mass/Vol] 1865.1 pg/mL High 0-100 [facility] Influenza virus A and B and SARS-CoV-2 (COVID-19) and Respiratory syncytial virus RNAOrdered By: Kali Ya on 05-25-2024 SARS-CoV-2 (COVID-19) RNA IHSAN+probe Ql (Unsp spec) Influenzae A Abnormal [facility] Absolute neutrophil countOrd ered By: Melsheyla Maurer on 05-18-2024 Neutrophils (Bld) [#/Vol] 3.2 10*3/uL 2.0-7.7 [facility] Albumin to globulin ratioOrd ered By: [facility] Erasto on 05-18-2024 Albumin/Globulin [Mass ratio] 1.0 {ratio} Normal 0.9-2.4 [facility] Comment on above: Performed By: #### L 100.0100, L500.2500 #### [facility] [address] [facility] [place], [place], [id number] Basophil percentageOrdered B y: Mel Maurer on 05-18-2024 Basophils/100 WBC (Bld) 1.3 % High 0-1 [facility] Bilirubin, totalOrdered By: Mel Maurer on 05-18-2024 Bilirubin [Mass/Vol] 0.90 mg/dL Normal 0.20-1.00 [facility] Comment on above: For patients on eltr ombopag therapy, use of Dimension [place] TBIL is not recommended. Result Comment: For patients on eltrombopag therapy, use of Dimension [place] TBIL is not recommended. Performed By: #### L 100.0100, L500.2500 #### [facility] [address] [facility] [place], [place], [id number] Blood urea nitrogen (BUN)/cr eatinine ratioOrdered By: Mel Maurer on 05-18-2024 Urea nitrogen/Creatinine [Mass ratio] 26.5 mg/mg High 10-20 [facility] CBC W/Diff, Automatedon 01-2 Absolute Lymph 1.54 X10 3/uL Normal 0.83-4.51 [facility] Comment on above: Performed By: #### L 100.0100, L500.2500 #### [facility] [address] [place], [address] Absolute Neut 3.2 X10 3/uL Normal 2.0-7.7 [facility] Comment on above: Performed By: #### L 100.0100, L500.2500 #### [facility] [address] [place], [address] Basophils/100 WBC (Bld) 1.3 % High 0-1 [facility] Comment on above: Performed By: #### L 100.0100, L500.2500 #### [facility] [address] [place], [address] Eosinophils/100 WBC (Bld) 3.1 % Normal 0-5 [facility] Comment on above: Performed By: #### L 100.0100, L500.2500 #### [facility] [address] [place], [address] Erythrocyte distribution width (RBC) [Ratio] 14.1 % Normal 11.6-14.6 [facility] Comment on above: Performed By: #### L 100.0100, L500.2500 #### [facility] [address] [place], [address] Hematocrit (Bld) [Volume fraction] 44.7 % Normal 37-47 [facility] Comment on above: Performed By: #### L 100.0100, L500.2500 #### [facility] [address] [place], [address] Hemoglobin (Bld) [Mass/Vol] 13.7 g/dL Normal 12.0-15.0 [facility] Comment on above: Performed By: #### L 100.0100, L500.2500 #### [facility] [address] [place], [address] IG% 0.200 Normal 0.0-0.9 [facility] Comment on above: Result Comment: IG% - Immature Granulocytes (promyelocytes, myelocytes and metamyelocytes) > 1% indicates that a LEFT SHIFT is Present. Performed By: #### L 100.0100, L500.2500 #### [facility] [address] [place], [address] Lymphocytes/100 WBC (Bld) 28.1 % Normal 19-41 [facility] Comment on above: Performed By: #### L 100.0100, L500.2500 #### [facility] [address] [place], [address] MCH (RBC) [Entitic mass] 28.2 pg Normal 27.0-32.0 [facility] Comment on above: Performed By: #### L 100.0100, L500.2500 #### [facility] [address] [place], [address] MCHC (RBC) [Mass/Vol] 30.6 g/dL Low 32-36 [facility] Comment on above: Performed By: #### L 100.0100, L500.2500 #### [facility] [address] [place], [address] MCV (RBC) [Entitic vol] 92.0 fL Normal 81-99 [facility] Comment on above: Performed By: #### L 100.0100, L500.2500 #### [facility] [address] [place], [address] Monocytes/100 WBC (Bld) 9.1 % Normal 0-10 [facility] Comment on above: Performed By: #### L 100.0100, L500.2500 #### [facility] [address] [place], [address] Neutrophils/100 WBC (Bld) 58.2 % Normal 47-70 [facility] Comment on above: Performed By: #### L 100.0100, L500.2500 #### [facility] [address] [place], [address] Nucleated RBC (Bld) [#/Vol] 0 10*3/uL Normal 0-5 [facility] Comment on above: Performed By: #### L 100.0100, L500.2500 #### [facility] [address] [place], [address] Platelet mean volume (Bld) [Entitic vol] 12.9 fL High 6.2-12.0 [facility] Comment on above: Performed By: #### L 100.0100, L500.2500 #### [facility] [address] [place], [address] Platelets (Bld) [#/Vol] 176 10*3/uL Normal 150-450 [facility] Comment on above: Performed By: #### L 100.0100, L500.2500 #### [facility] [address] [place], [address] RBC (Bld) [#/Vol] 4.86 10*6/uL Normal 4.2-5.4 [facility] Comment on above: Performed By: #### L 100.0100, L500.2500 #### [facility] [address] [place], [address] RDW SD 47.5 fl High 35.1-43.9 [facility] Comment on above: Performed By: #### L 100.0100, L500.2500 #### [facility] [address] [place], [address] WBC (Bld) [#/Vol] 5.5 10*3/uL Normal 4.4-11.0 [facility] Comment on above: Performed By: #### L 100.0100, L500.2500 #### [facility] [address] [place], [address] Carbon dioxide measurementOr dered By: Mel Maurer on 05-18-2024 CO2 [Moles/Vol] 33.0 mmol/L High 21.0-32.0 [facility] Comment on above: Performed By: #### L 100.0100, L500.2500 #### [facility] [address] [place], [address] Chloride measurementOrdered By: Mel Maurer on 05-18-2024 Chloride [Moles/Vol] 106 mmol/L Normal 98-107 [facility] Comment on above: Performed By: #### L 100.0100, L500.2500 #### [facility] [address] [place], [address] Comprehensive Metabolic Prof ilon 05-18-2024 ALK P 59 U/L Normal 45-117 [facility] Comment on above: Performed By: #### L 100.0100, L500.2500 #### [facility] [address] [place], [address] BUN/CRE 26.5 RATIO High 10-20 [facility] Comment on above: Performed By: #### L 100.0100, L500.2500 #### [facility] [address] [place], [address] CA,Total 9.6 mg/dL Normal 8.5-10.1 [facility] Comment on above: Performed By: #### L 100.0100, L500.2500 #### [facility] [address] [place], [address] EST GFR - AA 67 mL/min Normal >60 [facility] Comment on above: Result Comment: Afri can Lebanese GFR Calc Performed By: #### L 100.0100, L500.2500 #### [facility] [address] [place], [address] GAP 4 Low 5-15 [facility] Comment on above: Performed By: #### L 100.0100, L500.2500 #### [facility] [address] [place], [place], [id number] GFR/1.73 sq M.predicted among non-blacks MDRD (S/P/Bld) [Vol rate/Area] 55 mL/min/{1.73_m2} Low >60 [facility] Comment on above: Result Comment: Non- GFR Calc Performed By: #### L 100.0100, L500.2500 #### [facility] [address] [place], [address] T PROT 7.3 g/dL Normal 6.4-8.2 [facility] Comment on above: Performed By: #### L 100.0100, L500.2500 #### [facility] [address] [place], [address] Comprehensive Metabolic Prof ilOrdered By: Mel Maurer on 05-18-2024 AST [Catalytic activity/Vol] 18 U/L Normal 15-37 [facility] Comment on above: Performed By: #### L 100.0100, L500.2500 #### [facility] [address] [place], [address] Eosinophil percentageOrdered By: Mel Maurer on 05-18-2024 Eosinophils/100 WBC (Bld) 3.1 % 0-5 [facility] Erythrocyte distribution wid th ratioOrdered By: Mel Maurer on 05-18-2024 Erythrocyte distribution width (RBC) [Ratio] 14.1 % 11.6-14.6 [facility] Erythrocyte distribution wid th standard deviationOrdered By: Mel Maurer on 05-18-2024 Erythrocyte distribution width (RBC) [Entitic vol] 47.5 fL High 35.1-43.9 [facility] Estimated glomerular filtrat ion rate (GFR) AmericanOrdered By: Mel Maurer on 05-18-2024 Estimated GFR (MDRD) Amer 67 mL/min >60 [facility] Comment on above: GFR Calc Glomerular filtration rate ( GFR) estimationOrdered By: Mel Maurer on 05-18-2024 Estimated GFR (MDRD) Non-Af Amer 55 mL/min Low >60 [facility] Comment on above: Non- GFR Calc Glucose measurementOrdered B y: Mel Maurer on 05-18-2024 Glucose [Mass/Vol] 134 mg/dL High 74-106 [facility] Comment on above: Fasting Glucose resu lt greater than or equal to 126 mg/dL suggests DIABETES MELLITUS per A.D.A. criteria. Result Comment: Fast ing Glucose result greater than or equal to 126 mg/dL suggests DIABETES MELLITUS per A.D.A. criteria. Performed By: #### L 100.0100, L500.2500 #### [facility] [address] [place] [address], [address] Hematocrit Auto (Bld) [Volum e fraction]Ordered By: Mel Maurer on 05-18-2024 Hematocrit (Bld) [Volume fraction] 44.7 % 37-47 [facility] Hemoglobin measurementOrdere d By: Mel Maurer on 05-18-2024 Hemoglobin (Bld) [Mass/Vol] 13.7 g/dL 12.0-15.0 [facility] Immature granulocytes/100 WB C Auto (Bld)Ordered By: Mel Maurer on 05-18-2024 Immature granulocytes/100 WBC (Bld) 0.200 % 0.0-0.9 [facility] Comment on above: IG% - Immature Granu locytes (promyelocytes, myelocytes and metamyelocytes) > 1% indicates that a LEFT SHIFT is Present. Lymphocytes Auto (Unsp spec) [#/Vol]Ordered By: Mel Maurer on 05-18-2024 Lymphocytes (Bld) [#/Vol] 1.54 10*3/uL 0.83-4.51 [facility] Lymphocytes/100 WBC Auto (Un sp spec)Ordered By: Mel Maurer on 05-18-2024 Lymphocytes/100 WBC (Bld) 28.1 % 19-41 [facility] MCV (mean corpuscular volume ) determinationOrdered By: Mel Maurer on 05-18-2024 MCV (RBC) [Entitic vol] 92.0 fL 81-99 [facility] Mean corpuscular hemoglobin (MCH) determinationOrdered By: Mel Maurer on 05-18-2024 MCH (RBC) [Entitic mass] 28.2 pg 27.0-32.0 [facility] Mean corpuscular hemoglobin concentration (MCHC) determinationOrdered By: Mel Maurer on 05-18-2024 MCHC (RBC) [Mass/Vol] 30.6 g/dL Low 32-36 [facility] Mean platelet volume determi nationOrdered By: Mel Maurer on 05-18-2024 Platelet mean volume (Bld) [Entitic vol] 12.9 fL High 6.2-12.0 [facility] Monocyte percentageOrdered B y: Mel Maurer on 05-18-2024 Monocytes/100 WBC (Bld) 9.1 % 0-10 [facility] Neutrophil percentageOrdered By: Mel Maurer on 05-18-2024 Neutrophils/100 WBC (Bld) 58.2 % 47-70 [facility] Nucleated red blood cell per centageOrdered By: Mel Maurer on 05-18-2024 Nucleated RBC/100 WBC (Bld) [Ratio] 0 % 0-5 [facility] Platelet countOrdered By: Maricruz Maurer on 05-18-2024 Platelets (Bld) [#/Vol] 176 10*3/uL 150-450 [facility] Potassium measurementOrdered By: Mel Maurer on 05-18-2024 Potassium [Moles/Vol] 3.3 mmol/L Low 3.5-5.1 [facility] Comment on above: Performed By: #### L 100.0100, L500.2500 #### [facility] [address] [place], [place], [id number] RBC Auto (Bld) [#/Vol]Ordere d By: Mel Maurer on 05-18-2024 RBC (Bld) [#/Vol] 4.86 10*6/uL 4.2-5.4 [facility] Serum anion gap measurementO rdered By: Mel Maurer on 05-18-2024 Anion gap [Moles/Vol] 4 mmol/L Low 5-15 [facility] Serum globulin measurementOr dered By: Mel Maurer on 05-18-2024 Globulin (S) [Mass/Vol] 3.6 g/dL Normal 2.2-4.2 [facility] Comment on above: Performed By: #### L 100.0100, L500.2500 #### [facility] [address] [facility] [place], [address] Serum or plasma alanine davis otransferase (ALT) measurementOrdered By: Mel Maurer on 05-18-2024 ALT [Catalytic activity/Vol] 22 U/L Normal 13-56 [facility] Comment on above: Performed By: #### L 100.0100, L500.2500 #### [facility] [address] [place], [address] Serum or plasma albumin marilyn urement (mass/volume)Ordered By: Mel Maurer on 05-18-2024 Albumin [Mass/Vol] 3.7 g/dL Normal 3.2-5.0 [facility] Comment on above: Performed By: #### L 100.0100, L500.2500 #### [facility] [address] [place], [address] Serum or plasma alkaline [place] sphatase measurementOrdered By: Mel Maurer on 05-18-2024 ALP [Catalytic activity/Vol] 59 U/L 45-117 [facility] Serum or plasma calcium marilyn urement (mass/volume)Ordered By: Mel Maurer on 05-18-2024 Calcium [Mass/Vol] 9.6 mg/dL 8.5-10.1 [facility] Serum or plasma creatinine m easurement (mass/volume)Ordered By: Mel Maurer on 05-18-2024 Creatinine [Mass/Vol] 1.02 mg/dL Normal 0.55-1.02 [facility] Comment on above: The validity of the calculated GFR & GFRAA in patients over 70 years has not been determined. Clinical correlation is essential. Result Comment: The validity of the calculated GFR GFRAA in patients over 70 years has not been determined. Clinical correlation is essential. Performed By: #### L 100.0100, L500.2500 #### [facility] [address] [place], [address] Serum or plasma urea nitroge n measurement (mass/volume)Ordered By: Mel Maurer on 05-18-2024 Urea nitrogen [Mass/Vol] 27 mg/dL High 7-18 [facility] Comment on above: Performed By: #### L 100.0100, L500.2500 #### [facility] [address] [place], [address] Sodium levelOrdered By: Kathy Maurer on 05-18-2024 Sodium [Moles/Vol] 143 mmol/L Normal 136-145 [facility] Comment on above: Performed By: #### L 100.0100, L500.2500 #### [facility] [address] [place], [address] Total proteinOrdered By: Felton Maurer on 05-18-2024 Protein [Mass/Vol] 7.3 g/dL 6.4-8.2 [facility] White blood cell (WBC) count Ordered By: Mel Maurer on 05-18-2024 WBC (Bld) [#/Vol] 5.5 10*3/uL 4.4-11.0 [facility] Basic Metabolic Profile (BMP )on 05-08-2024 BUN/CRE 26.9 RATIO High 10-20 [facility] Comment on above: Performed By: #### L 501.080 #### [facility] [address] [place], [address] CA,Total 10.0 mg/dL Normal 8.5-10.1 [facility] Comment on above: Performed By: #### L 501.080 #### [facility] [address] [place], [address] Chloride [Moles/Vol] 106 mmol/L Normal 98-107 [facility] Comment on above: Performed By: #### L 501.080 #### [facility] [address] [place], [address] CO2 [Moles/Vol] 26.0 mmol/L Normal 21.0-32.0 [facility] Comment on above: Performed By: #### L 501.080 #### [facility] [address] [place], [address] Creatinine [Mass/Vol] 1.04 mg/dL High 0.55-1.02 [facility] Comment on above: Result Comment: The validity of the calculated GFR GFRAA in patients over 70 years has not been determined. Clinical correlation is essential. Performed By: #### L 501.080 #### [facility] [address] [place], [address] EST GFR - AA 66 mL/min Normal >60 [facility] Comment on above: Result Comment: Afri can Lebanese GFR Calc Performed By: #### L 501.080 #### [facility] [address] [place], [address] GAP 6 Normal 5-15 [facility] Comment on above: Performed By: #### L 501.080 #### [facility] [address] [place], [address] GFR/1.73 sq M.predicted among non-blacks MDRD (S/P/Bld) [Vol rate/Area] 54 mL/min/{1.73_m2} Low >60 [facility] Comment on above: Result Comment: Non- GFR Calc Performed By: #### L 501.080 #### [facility] [address] [place], [address] Glucose [Mass/Vol] 127 mg/dL High 74-106 [facility] Comment on above: Result Comment: Fast ing Glucose result greater than or equal to 126 mg/dL suggests DIABETES MELLITUS per A.D.A. criteria. Performed By: #### L 501.080 #### [facility] [address] [place], [address] Potassium [Moles/Vol] 3.8 mmol/L Normal 3.5-5.1 [facility] Comment on above: Performed By: #### L 501.080 #### [facility] [address] [place], [address] Sodium [Moles/Vol] 138 mmol/L Normal 136-145 [facility] Comment on above: Performed By: #### L 501.080 #### [facility] [address] [place], [address] Urea nitrogen [Mass/Vol] 28 mg/dL High 7-18 [facility] Comment on above: Performed By: #### L 501.080 #### [facility] [address] [place], [address] Blood urea nitrogen (BUN)/cr eatinine ratioOrdered By: Sofia Pereyra on 05-08-2024 Urea nitrogen/Creatinine [Mass ratio] 26.9 mg/mg High 10-20 [facility] Carbon dioxide measurementOr dered By: Sofia Pereyra on 05-08-2024 CO2 [Moles/Vol] 26.0 mmol/L 21.0-32.0 [facility] Cardiology Visit Reporton Cardiology Visit Report [facility] [address] [place], [place] [address] OFFICE VISIT Date of Service: 05/08/24 MR#: [id number] Acct: [id number] Name: BARBARA HOLDER Rep #: [id number] : 1945 Provider: MARICRUZ Martines Age/Sex: 79/F Location: [facility] [place] Status: Signed HPI HPI History of Present Illness Details: Barbara Holder is an 79-year-old female that presented to [facility] on 04/16/2024 with increased shortness of breath with exertion for the last 2 to 3 weeks. She has a history of hypertension, rheumatoid arthritis. She was noted to have an elevated BN P. EKG at time of admission demonstrated sinus tachycardia. She did undergo an echocardiogram which demonstrated an ejection fraction of 10%. She did have a heart catheterization in 2020 which did not demonstrate any coronary artery disease at this time. 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 She was discharged home on carvedilol and furosemide. And considering medication titration and addition of spironolactone, Entresto and an SGLT2 on an outpatient basis. Patient questions if she did not have heart failure symptoms over the summer as she was noted to be shortness of breath with exertion she does feel significantly better since being home. It is also noted that she does have a family history of congestive heart failure. 2 of her sons have cardiomyopathies. They also have renal failure. At one of them does have a renal transplant. Intake Vital Signs 04/17/24 11:29 05/08/24 09:13 Height 5 ft 3 in 5 ft 3 in Weight: 170 lb BMI 30.1 BP 123/82 H Blood Pressure Location Lt brachial Position Sitting Respiration 18 Pulse 102 H Pulse Source Monitor Pulse Oximetry (%) 96 Intake Visit Reasons: S/P [facility] 04/18 [employer] Operator Required: No Is patient in pain?: No Allergies amoxicillin Adverse Reaction (Verified 05/08/24 09:13) GI upset, Nausea and vomiting Medications ???Medication ???Instructions ???Recorded ???Confirmed ???Type gabapentin 100 mg capsule 100 mg PO BID nerve pain 04/30/15 05/08/24 History allopurinol 100 mg tablet 200 mg PO DAILY gout 10/18/20 05/08/24 History acetaminophen 500 mg tablet 500 mg PO Q6H PRN Pain 10/20/20 05/08/24 History albuterol sulfate 90 mcg/actuation 1 puff inhalation PRN shortness of 04/16/24 05/08/24 History aerosol inhaler breath or wheezing calcium 600 mg (as carbonate)-vit 1 tab PO DAILY supplement 04/16/24 05/08/24 History D3 20 mcg (800 unit) chewable tablet (Caltrate plus D) hydroxychloroquine 200 mg tablet 200 mg PO BID 04/16/24 05/08/24 History (Plaquenil) mometasone-formoterol HFA 100 2 puff inhalation BID breathing 04/16/24 05/08/24 History mcg-5 mcg/actuation aerosol inhaler (Dulera) ondansetron 4 mg disintegrating 4 - 8 mg PO Q6H PRN PRN nausea 04/16/24 04/16/24 History tablet levothyroxine 125 mcg tablet 125 mcg PO DAILY@0600 #30 tabs 04/18/24 05/08/24 Rx aspirin 81 mg tablet,delayed 81 mg PO QDAY 05/08/24 05/08/24 History release (Adult Low Dose Aspirin) carvedilol 6.25 mg tablet 6.25 mg PO BID #60 tabs 05/08/24 05/08/24 Rx furosemide 40 mg tablet 40 mg PO DAILY #90 tabs 05/08/24 05/08/24 Rx levothyroxine 100 mcg tablet 125 mcg PO DAILY thyroid 05/08/24 05/08/24 History spironolactone 25 mg tablet 25 mg PO DAILY #90 tabs 05/08/24 05/08/24 Rx Have you fallen in the past year?: No PFSH Medical History (Updated 05/08/24 @ 09:56 by Sofia ALCANTARA, PA) Cardiomyopathy Obesity (BMI 30.0-34.9) New onset of congestive heart failure Acute respiratory insufficiency Polymyalgia rheumatica Dyspnea on exertion Rheumatoid arthritis Gout Hypothyroidism Essential hypertension Type 2 diabetes mellitus Surgical History History of left heart catheterization (LHC) ( 11/15/20) H/O right knee surgery History of carpal tunnel surgery History of hysterectomy History of appendectomy Family History Mother History of DVT (deep vein thrombosis) Hypertension Father Cancer Lung Sister CAD (coronary artery disease) History of coronary artery bypass surgery Social History Smoking Status: Never smoker alcohol intake: current details: occasional substance use type: does not use caffeine: Yes Type: coffee Number of servings: 3 and tea ROS Const Const: Positive for fatigue; Negative for weakness, body ache, fever(s) or headache(s) Eyes Eyes: Negative for change in vision ENT ENT: Negative for headache(s), dizziness, hearing loss, Nosebleed/epistaxis or balance problems Cardio Chest Pain: No P (more content not included)... Normal [facility] Chloride measurementOrdered By: Sofia Pereyra on 05-08-2024 Chloride [Moles/Vol] 106 mmol/L 98-107 [facility] Estimated glomerular filtrat ion rate (GFR) AmericanOrdered By: Sofia Pereyra on 05-08-2024 Estimated GFR (MDRD) Amer 66 mL/min >60 [facility] Comment on above: GFR Calc Glomerular filtration rate ( GFR) estimationOrdered By: Sofia Pereyra on 05-08-2024 Estimated GFR (MDRD) Non-Af Amer 54 mL/min Low >60 [facility] Comment on above: Non- GFR Calc Glucose measurementOrdered B y: Sofai Pereyra on 05-08-2024 Glucose [Mass/Vol] 127 mg/dL High 74-106 [facility] Comment on above: Fasting Glucose resu lt greater than or equal to 126 mg/dL suggests DIABETES MELLITUS per A.D.A. criteria. Potassium measurementOrdered By: Sofia Pereyra on 05-08-2024 Potassium [Moles/Vol] 3.8 mmol/L 3.5-5.1 [facility] Serum anion gap measurementO rdered By: Sofia Pereyra on 05-08-2024 Anion gap [Moles/Vol] 6 mmol/L 5-15 [facility] Serum or plasma calcium marilyn urement (mass/volume)Ordered By: Sofia Pereyra on 05-08-2024 Calcium [Mass/Vol] 10.0 mg/dL 8.5-10.1 [facility] Serum or plasma creatinine m easurement (mass/volume)Ordered By: Sofia Pereyra on 05-08-2024 Creatinine [Mass/Vol] 1.04 mg/dL High 0.55-1.02 [facility] Comment on above: The validity of the calculated GFR & GFRAA in patients over 70 years has not been determined. Clinical correlation is essential. Serum or plasma urea nitroge n measurement (mass/volume)Ordered By: Sofia Pereyra on 05-08-2024 Urea nitrogen [Mass/Vol] 28 mg/dL High 7-18 [facility] Sodium levelOrdered By: Brennon Pereyra on 05-08-2024 Sodium [Moles/Vol] 138 mmol/L 136-145 [facility] Discharge Instructionon 03-23 Discharge Instruction [facility] Medical Records Department [address] [place] [address] Instructions for Home/Discharge Instructions 04/18/24 1052 MR#: [id number] Acct: [id number] Name: BARBARA HOLDER Rep #: [id number] : 1945 79 From: Saulo Chávez DO PCP: Dr. Mariposa Parker DO Status:ADM IN Discharge Instructions Diet Discharge Diet: No restrictions DC O2, CPAP, BIPAP needs Home O2 Discharge instructions: No Dressing / Incision Discharge Activity: Return to Normal Activity Weight Bearing Status: Full weight bearing Follow Up Care Test Results: Test results from this visit will be discussed in further detail at your follow-up appointment, if applicable. Discharge Plan Admission Admit Date/Time: 04/16/24 23:04 Primary Reason for Your Visit: Congestive heart failure Attending Provider: Saulo Chávez Primary Care Provider: Mariposa Parker Consulting Providers: Wilian Yang; Christian White Instructions Additional Instructions / Restrictions: Start furosemide on 04/19/2024 Discharge Orders/Prescriptions Prescriptions: New furosemide 40 mg Tablet 40 mg PO DAILY Qty: 30 0RF carvedilol 3.125 mg Tablet 3.125 mg PO BID Qty: 60 0RF potassium chloride 20 mEq Tablet,Er Particles/Crystals 20 meq PO DAILY Qty: 30 0RF levothyroxine 125 mcg Tablet 125 mcg PO DAILY@0600 Qty: 30 0RF Continued acetaminophen 500 mg tablet 500 mg PO Q6H PRN (Reason: Pain) gabapentin 100 MG capsule 100 mg PO BID Patient Comments: Caltrate 600 plus D 600 mg-20 mcg (800 unit) tablet,chewable 1 tab PO DAILY albuterol sulfate 90 mcg/actuation HFA aerosol inhaler 1 puff inhalation PRN (Reason: shortness of breath or wheezing) hydroxychloroquine [Plaquenil] 200 mg tablet 200 mg PO BID ondansetron 4 mg tablet,disintegrating 4 - 8 mg PO Q6H PRN PRN (Reason: nausea) Dulera 100-5 mcg/actuation HFA aerosol inhaler 2 puff inhalation BID allopurinol 100 mg tablet 200 mg PO DAILY levothyroxine 100 mcg tablet 100 mcg PO DAILY Discontinued triamterene-hydrochlo rothiazid 1 CAP capsule 1 cap PO DAILY Referrals / Follow Up: Wilian Yang MD [Med Staff - Active Staff] - See Referral Note (Call to make an appointment for 2 weeks from now) Mariposa Parker DO [Primary Care Provider] - In 1 Week Disposition Disposition (needs filled in before D/C Order can be placed): Home, Self Care 04/18/24 1113 Saulo Chávez DO CC: Dr. Wilian Yang MD; Dr. Christian White DO; Dr. Mariposa Parker DO Signed Normal [facility] Magnesiumon 04-18-2024 Magnesium [Mass/Vol] 2.2 mg/dL Normal 1.6-2.6 [facility] Comment on above: Performed By: #### L 501.2300, L501.5200 ####[facility] [id number] [place], [place], [id number] Magnesium measurementOrdered By: Christian March on 04-18-2024 Magnesium [Mass/Vol] 2.2 mg/dL 1.6-2.6 [facility] Phosphoruson 04-18-2024 Phosphate [Mass/Vol] 4.3 mg/dL Normal 2.5-4.9 [facility] Comment on above: Performed By: #### L 501.2300, L501.5200 ####[facility] [id number] [place], [place], [id number] Phosphorus measurementOrdere d By: Christian March on 04-18-2024 Phosphorus Level 4.3 mg/dL 2.5-4.9 [facility] Absolute neutrophil countOrd ered By: Christian March on 04-17-2024 Neutrophils (Bld) [#/Vol] 4.9 10*3/uL 2.0-7.7 [facility] Albumin to globulin ratioOrd ered By: Christian March on 04-17-2024 Albumin/Globulin [Mass ratio] 1.1 {ratio} 0.9-2.4 [facility] BNP (brain natriuretic pepti de measurement)Ordered By: Christian March on 04-17-2024 Natriuretic peptide B (Bld) [Mass/Vol] 1830.5 pg/mL High 0-100 [facility] BNP,B-Type NATRIURETIC PEPTI Lola 04-17-2024 Natriuretic peptide B (Bld) [Mass/Vol] 1830.5 pg/mL High 0-100 [facility] Comment on above: Performed By: #### L 501.080 #### [facility] [address] [place], [place], [id number] Basophil percentageOrdered B y: Christian March on 04-17-2024 Basophils/100 WBC (Bld) 0.7 % 0-1 [facility] Bilirubin, totalOrdered By: Christian March on 04-17-2024 Bilirubin [Mass/Vol] 1.50 mg/dL High 0.20-1.00 [facility] Comment on above: For patients on eltr ombopag therapy, use of Dimension [place] TBIL is not recommended. Blood urea nitrogen (BUN)/cr eatinine ratioOrdered By: Christian March on 04-17-2024 Urea nitrogen/Creatinine [Mass ratio] 13.8 mg/mg 10-20 [facility] CBC W/Diff, Automatedon 03-23 Absolute Lymph 1.39 X10 3/uL Normal 0.83-4.51 [facility] Comment on above: Performed By: #### L 500.4100, L100.0100, L500.4050, L501.5200, L501.9520, L501.2300 #### [facility] [address] [place], [address] Absolute Neut 4.9 X10 3/uL Normal 2.0-7.7 [facility] Comment on above: Performed By: #### L 500.4100, L100.0100, L500.4050, L501.5200, L501.9520, L501.2300 #### [facility] [address] [place], [address] Basophils/100 WBC (Bld) 0.7 % Normal 0-1 [facility] Comment on above: Performed By: #### L 500.4100, L100.0100, L500.4050, L501.5200, L501.9520, L501.2300 #### [facility] [address] [place], [address] Eosinophils/100 WBC (Bld) 1.7 % Normal 0-5 [facility] Comment on above: Performed By: #### L 500.4100, L100.0100, L500.4050, L501.5200, L501.9520, L501.2300 #### [facility] [address] [place], [address] Erythrocyte distribution width (RBC) [Ratio] 14.9 % High 11.6-14.6 [facility] Comment on above: Performed By: #### L 500.4100, L100.0100, L500.4050, L501.5200, L501.9520, L501.2300 #### [facility] [address] [place], [address] Hematocrit (Bld) [Volume fraction] 40.2 % Normal 37-47 [facility] Comment on above: Performed By: #### L 500.4100, L100.0100, L500.4050, L501.5200, L501.9520, L501.2300 #### [facility] [address] [place], [address] Hemoglobin (Bld) [Mass/Vol] 13.0 g/dL Normal 12.0-15.0 [facility] Comment on above: Performed By: #### L 500.4100, L100.0100, L500.4050, L501.5200, L501.9520, L501.2300 #### [facility] [address] [place], [address] IG% 0.600 Normal 0.0-0.9 [facility] Comment on above: Result Comment: IG% - Immature Granulocytes (promyelocytes, myelocytes and metamyelocytes) > 1% indicates that a LEFT SHIFT is Present. Performed By: #### L 500.4100, L100.0100, L500.4050, L501.5200, L501.9520, L501.2300 #### [facility] [address] [place], [address] Lymphocytes/100 WBC (Bld) 19.2 % Normal 19-41 [facility] Comment on above: Performed By: #### L 500.4100, L100.0100, L500.4050, L501.5200, L501.9520, L501.2300 #### [facility] [address] [place], [address] MCH (RBC) [Entitic mass] 29.2 pg Normal 27.0-32.0 [facility] Comment on above: Performed By: #### L 500.4100, L100.0100, L500.4050, L501.5200, L501.9520, L501.2300 #### [facility] [address] [place], [address] MCHC (RBC) [Mass/Vol] 32.3 g/dL Normal 32-36 [facility] Comment on above: Performed By: #### L 500.4100, L100.0100, L500.4050, L501.5200, L501.9520, L501.2300 #### [facility] [address] [place], [address] MCV (RBC) [Entitic vol] 90.3 fL Normal 81-99 [facility] Comment on above: Performed By: #### L 500.4100, L100.0100, L500.4050, L501.5200, L501.9520, L501.2300 #### [facility] [address] [place], [address] Monocytes/100 WBC (Bld) 9.8 % Normal 0-10 [facility] Comment on above: Performed By: #### L 500.4100, L100.0100, L500.4050, L501.5200, L501.9520, L501.2300 #### [facility] [address] [place], [address] Neutrophils/100 WBC (Bld) 68.0 % Normal 47-70 [facility] Comment on above: Performed By: #### L 500.4100, L100.0100, L500.4050, L501.5200, L501.9520, L501.2300 #### [facility] [address] [place], [address] Nucleated RBC (Bld) [#/Vol] 0 10*3/uL Normal 0-5 [facility] Comment on above: Performed By: #### L 500.4100, L100.0100, L500.4050, L501.5200, L501.9520, L501.2300 #### [facility] [address] [place], [address] Platelet mean volume (Bld) [Entitic vol] 12.0 fL Normal 6.2-12.0 [facility] Comment on above: Performed By: #### L 500.4100, L100.0100, L500.4050, L501.5200, L501.9520, L501.2300 #### [facility] [address] [place], [address] Platelets (Bld) [#/Vol] 200 10*3/uL Normal 150-450 [facility] Comment on above: Performed By: #### L 500.4100, L100.0100, L500.4050, L501.5200, L501.9520, L501.2300 #### [facility] [address] [place], [address] RBC (Bld) [#/Vol] 4.45 10*6/uL Normal 4.2-5.4 [facility] Comment on above: Performed By: #### L 500.4100, L100.0100, L500.4050, L501.5200, L501.9520, L501.2300 #### [facility] [address] [place], [address] RDW SD 49.0 fl High 35.1-43.9 [facility] Comment on above: Performed By: #### L 500.4100, L100.0100, L500.4050, L501.5200, L501.9520, L501.2300 #### [facility] [address] [place], [address] WBC (Bld) [#/Vol] 7.3 10*3/uL Normal 4.4-11.0 [facility] Comment on above: Performed By: #### L 500.4100, L100.0100, L500.4050, L501.5200, L501.9520, L501.2300 #### [facility] [address] [place], [address] Carbon dioxide measurementOr dered By: Christian March on 04-17-2024 CO2 [Moles/Vol] 32.0 mmol/L 21.0-32.0 [facility] Chloride measurementOrdered By: Christian March on 04-17-2024 Chloride [Moles/Vol] 102 mmol/L 98-107 [facility] Comprehensive Metabolic Prof ilon 04-17-2024 Albumin [Mass/Vol] 3.3 g/dL Normal 3.2-5.0 [facility] Comment on above: Performed By: #### L 500.4100, L100.0100, L500.4050, L501.5200, L501.9520, L501.2300 #### [facility] [address] [place], [address] Albumin/Globulin [Mass ratio] 1.1 {ratio} Normal 0.9-2.4 [facility] Comment on above: Performed By: #### L 500.4100, L100.0100, L500.4050, L501.5200, L501.9520, L501.2300 #### [facility] [address] [place], [address] ALK P 55 U/L Normal 45-117 [facility] Comment on above: Performed By: #### L 500.4100, L100.0100, L500.4050, L501.5200, L501.9520, L501.2300 #### [facility] [address] [place], [address] ALT [Catalytic activity/Vol] 35 U/L Normal 13-56 [facility] Comment on above: Performed By: #### L 500.4100, L100.0100, L500.4050, L501.5200, L501.9520, L501.2300 #### [facility] [address] [place], [address] AST [Catalytic activity/Vol] 20 U/L Normal 15-37 [facility] Comment on above: Performed By: #### L 500.4100, L100.0100, L500.4050, L501.5200, L501.9520, L501.2300 #### [facility] [address] [place], [address] Bilirubin [Mass/Vol] 1.50 mg/dL High 0.20-1.00 [facility] Comment on above: Result Comment: For patients on eltrombopag therapy, use of Dimension [place] TBIL is not recommended. Performed By: #### L 500.4100, L100.0100, L500.4050, L501.5200, L501.9520, L501.2300 #### [facility] [address] [place], [address] BUN/CRE 13.8 RATIO Normal 10-20 [facility] Comment on above: Performed By: #### L 500.4100, L100.0100, L500.4050, L501.5200, L501.9520, L501.2300 #### [facility] [address] [place], [address] CA,Total 8.7 mg/dL Normal 8.5-10.1 [facility] Comment on above: Performed By: #### L 500.4100, L100.0100, L500.4050, L501.5200, L501.9520, L501.2300 #### [facility] [address] [place], [address] Chloride [Moles/Vol] 102 mmol/L Normal 98-107 [facility] Comment on above: Performed By: #### L 500.4100, L100.0100, L500.4050, L501.5200, L501.9520, L501.2300 #### [facility] [address] [place], [address] CO2 [Moles/Vol] 32.0 mmol/L Normal 21.0-32.0 [facility] Comment on above: Performed By: #### L 500.4100, L100.0100, L500.4050, L501.5200, L501.9520, L501.2300 #### [facility] [address] [place], [address] Creatinine [Mass/Vol] 0.94 mg/dL Normal 0.55-1.02 [facility] Comment on above: Result Comment: The validity of the calculated GFR GFRAA in patients over 70 years has not been determined. Clinical correlation is essential. Performed By: #### L 500.4100, L100.0100, L500.4050, L501.5200, L501.9520, L501.2300 #### [facility] [address] [place], [address] ECRCL 47.59 ml/min Normal [facility] Comment on above: Performed By: #### L 500.4100, L100.0100, L500.4050, L501.5200, L501.9520, L501.2300 #### [facility] [address] [place], [address] EST GFR - AA 74 mL/min Normal >60 [facility] Comment on above: Result Comment: Afri can Lebanese GFR Calc Performed By: #### L 500.4100, L100.0100, L500.4050, L501.5200, L501.9520, L501.2300 #### [facility] [address] [place], [address] GAP 5 Normal 5-15 [facility] Comment on above: Performed By: #### L 500.4100, L100.0100, L500.4050, L501.5200, L501.9520, L501.2300 #### [facility] [address] [place], [address] GFR/1.73 sq M.predicted among non-blacks MDRD (S/P/Bld) [Vol rate/Area] 61 mL/min/{1.73_m2} Normal >60 [facility] Comment on above: Result Comment: Non- GFR Calc Performed By: #### L 500.4100, L100.0100, L500.4050, L501.5200, L501.9520, L501.2300 #### [facility] [address] [place], [address] Globulin (S) [Mass/Vol] 3.1 g/dL Normal 2.2-4.2 [facility] Comment on above: Performed By: #### L 500.4100, L100.0100, L500.4050, L501.5200, L501.9520, L501.2300 #### [facility] [address] [place], [address] Glucose [Mass/Vol] 109 mg/dL High 74-106 [facility] Comment on above: Result Comment: Fast ing Glucose result from 100 to 125 mg/dL suggests IMPAIRED HOMEOSTASIS per A.D.A. criteria. Performed By: #### L 500.4100, L100.0100, L500.4050, L501.5200, L501.9520, L501.2300 #### [facility] [address] [place], [address] Potassium [Moles/Vol] 3.5 mmol/L Normal 3.5-5.1 [facility] Comment on above: Performed By: #### L 500.4100, L100.0100, L500.4050, L501.5200, L501.9520, L501.2300 #### [facility] [address] [place], [address] Sodium [Moles/Vol] 139 mmol/L Normal 136-145 [facility] Comment on above: Performed By: #### L 500.4100, L100.0100, L500.4050, L501.5200, L501.9520, L501.2300 #### [facility] [address] [place], [address] T PROT 6.4 g/dL Normal 6.4-8.2 [facility] Comment on above: Performed By: #### L 500.4100, L100.0100, L500.4050, L501.5200, L501.9520, L501.2300 #### [facility] [address] [place], [address] Urea nitrogen [Mass/Vol] 13 mg/dL Normal 7-18 [facility] Comment on above: Performed By: #### L 500.4100, L100.0100, L500.4050, L501.5200, L501.9520, L501.2300 #### [facility] [address] [place], [address] Consultation - Cardiologyon 04-17-2024 Consultation - Cardiology [facility] Medical Records Department [address] [place] [address] Consultation - Cardiology 04/17/24 1414 MR#: [id number] Acct: [id number] Name: BARBARA HOLDER Rep #: [id number] : 1945 79 From: Wilian Yang MD PCP: Dr. Mariposa Parker, DO Status:ADM IN Location: [place] [address]-1 Assessment Plan Assessment/Plan (1) CHF (congestive heart failure), NYHA class III: PLAN: She does present with shortness of breath and likely has congestive heart failure. The etiology is unclear at this time she is hypothyroid but she is tachycardic. An echocardiogram performed today demonstrated an ejection fraction of 10%. 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 She did undergo a cardiac catheterization almost 3 years ago and at that time her coronaries were noted to be normal. Due to the global nature it is unlikely that this is due to coronary disease. * Will recommend carvedilol 3.125 mg twice a day and titrate upwards as appropriate * Start sacubitril * Start Lasix 40 mg a day * May also add spironolactone as well as an SGLT2 inhibitor. * * Thank you for allowing me to participate in the care of your patient. Please don't hesitate to call if any issues arise. HPI Consult Data Date of Consult: 04/17/24 HPI Narrative HPI Narrative: BARBARA HOLDER, is a 79 F who presents with generalized fatigue as well as dyspnea on exertion which has been going on for the last 2 to 3 weeks. She said that she had some nausea diarrhea abdominal bloating for which she was given some medication. She denies any history of hypertension hyperlipidemia but she did undergo a cardiac catheterization 3 years ago which demonstrated normal coronary arteries with preserved ejection fraction. She has not had a cough but has had mild pedal edema. She presented to the emergency room was noted to be in sinus tachycardia and cardiology was called for evaluation. She was noted to have an elevated natruretic peptide level as well. [facility] Medical History Polymyalgia rheumatica Dyspnea on exertion Rheumatoid arthritis Gout Hypothyroidism Essential hypertension Type 2 diabetes mellitus Home Medications ???Medication ???Instructions ???Recorded ???Last Taken ???Type gabapentin 100 mg capsule 100 mg PO BID 04/30/15 Unknown History triamterene 37.5 1 cap PO DAILY 04/30/15 Unknown History mg-hydrochlorothiazid e 25 mg capsule allopurinol 100 mg tablet 200 mg PO DAILY 10/18/20 Unknown History levothyroxine 100 mcg tablet 100 mcg PO DAILY 10/18/20 11/15/20 History acetaminophen 500 mg tablet 500 mg PO Q6H PRN Pain 10/20/20 Unknown History albuterol sulfate 90 mcg/actuation 1 puff inhalation PRN shortness of 04/16/24 Unknown History aerosol inhaler breath or wheezing calcium 600 mg (as carbonate)-vit 1 tab PO DAILY 04/16/24 Unknown History D3 20 mcg (800 unit) chewable tablet (Caltrate plus D) hydroxychloroquine 200 mg tablet 200 mg PO BID 04/16/24 Unknown History (Plaquenil) mometasone-formoterol HFA 100 2 puff inhalation BID 04/16/24 Unknown History mcg-5 mcg/actuation aerosol inhaler (Dulera) ondansetron 4 mg disintegrating 4 - 8 mg PO Q6H PRN PRN nausea 04/16/24 Unknown History tablet Allergy/AdvReac Type Severity Reaction Status Date / Time amoxicillin AdvReac GI upset, Verified 04/16/24 17:51 Nausea and vomiting Family History Mother History of DVT (deep vein thrombosis) Hypertension Father Cancer Lung Sister CAD (coronary artery disease) History of coronary artery bypass surgery Surgical History History of left heart catheterization (LHC) ( 11/15/20) H/O right knee surgery History of carpal tunnel surgery History of hysterectomy History of appendectomy Social History Smoking Status: Never smoker alcohol intake: current details: occasional substance use type: does not use caffeine: Yes Type: coffee Number of servings: 3 and tea ROS Constitutional Constitutional: Denies fever(s) or weight loss Eyes Eyes: Reports systems reviewed and no addt'l complaints, except as documented ENT HEENT: Reports systems reviewed and no addt'l complaints, except as documented Cardiovascular Cardiovascular: Denies chest pain at rest, chest pain with activity, dyspnea at rest, dyspnea on exertion, edema, palpitations or paroxysmal nocturnal dyspnea Respiratory/Chest Respiratory/Chest: Denies dyspnea on exertion, productive cough, shortness of breath at rest or shortness of breath with exertion Gastrointestinal Gastrointestinal: Denies change in bowel habits, nausea, vomiting or weight changes Genitourinary (more content not included)... Normal [facility] Eosinophil percentageOrdered By: Christian March on 04-17-2024 Eosinophils/100 WBC (Bld) 1.7 % 0-5 [facility] Erythrocyte distribution wid th ratioOrdered By: Christian March on 04-17-2024 Erythrocyte distribution width (RBC) [Ratio] 14.9 % High 11.6-14.6 [facility] Erythrocyte distribution wid th standard deviationOrdered By: Christian March on 04-17-2024 Erythrocyte distribution width (RBC) [Entitic vol] 49.0 fL High 35.1-43.9 [facility] Estimated glomerular filtrat ion rate (GFR) AmericanOrdered By: Christian March on 04-17-2024 Estimated GFR (MDRD) Amer 74 mL/min >60 [facility] Comment on above: GFR Calc Estimation of creatinine wesly aranceOrdered By: Christian March on 04-17-2024 Estimated Creatinine Clearance Calc 47.59 ml/min [facility] Free T3on 04-17-2024 Free T3 [Mass/Vol] 1.9 pg/mL Low 2.18-3.98 [facility] Comment on above: Performed By: #### L 100.0100, L500.2500 #### [facility] [address] [place], [place], [address] Free K4Woblufc By: Saulo curtis on 04-17-2024 Free Triiodothyronine (T3) pg/dL 1.9 pg/mL Low 2.18-3.98 [facility] Glomerular filtration rate ( GFR) estimationOrdered By: Christian March on 04-17-2024 Estimated GFR (MDRD) Non-Af Amer 61 mL/min >60 [facility] Comment on above: Non- GFR Calc Glucose measurementOrdered B y: Christian March on 04-17-2024 Glucose [Mass/Vol] 109 mg/dL High 74-106 [facility] Comment on above: Fasting Glucose resu lt from 100 to 125 mg/dL suggests IMPAIRED HOMEOSTASIS per A.D.A. criteria. Hematocrit Auto (Bld) [Volum e fraction]Ordered By: Christian March on 04-17-2024 Hematocrit (Bld) [Volume fraction] 40.2 % 37-47 [facility] Hemoglobin measurementOrdere d By: Christian March on 04-17-2024 Hemoglobin (Bld) [Mass/Vol] 13.0 g/dL 12.0-15.0 [facility] High density lipoprotein (HD L) measurementOrdered By: Christian March on 04-17-2024 Cholesterol in HDL [Mass/Vol] 56 mg/dL >40 [facility] Comment on above: The drugs N-Acetylcy steine and Metamizole may falsely depress this assay. Reference Range HDL <40 mg/dL Low HDL Cholesterol HDL >or= 60 mg/dL High HDL Cholesterol Immature granulocytes/100 WB C Auto (Bld)Ordered By: Christian March on 04-17-2024 Immature granulocytes/100 WBC (Bld) 0.600 % 0.0-0.9 [facility] Comment on above: IG% - Immature Granu locytes (promyelocytes, myelocytes and metamyelocytes) > 1% indicates that a LEFT SHIFT is Present. L501.4020on 04-17-2024 TROPONIN-I HS 46 pg/mL Normal 3.0-54.0 [facility] Comment on above: Order Comment: 'TROP ' Serial specimen #1, #2 or #3: 3 Result Comment: Plepat se Note: New Test Units and Gender Specific Reference Ranges. For more information see Policy Stat Procedure [place] High Sensitivity Troponin (TNIH) and attachments. Performed By: #### L 500.4100, L100.0100, L500.4050, L501.5200, L501.9520, L501.2300 #### [facility] [address] [place], [place], [address] Laboratory - Chemistry and C hemistry - challengeOrdered By: Christian March on 04-17-2024 AST [Catalytic activity/Vol] 20 U/L 15-37 [facility] Lipid Profileon 04-17-2024 Cholesterol [Mass/Vol] 133 mg/dL Normal 200 [facility] Comment on above: Result Comment: <200 mg/dL Desirable 200-240 mg/dL Borderline >240 mg/dL High Risk Performed By: #### L 500.4100, L100.0100, L500.4050, L501.5200, L501.9520, L501.2300 #### [facility] [address] [place], [place], [address] Cholesterol in HDL [Mass/Vol] 56 mg/dL Normal [facility] Comment on above: Result Comment: The drugs N-Acetylcysteine and Metamizole may falsely depress this assay. Reference Range HDL <40 mg/dL Low HDL Cholesterol HDL >or= 60 mg/dL High HDL Cholesterol Performed By: #### L 500.4100, L100.0100, L500.4050, L501.5200, L501.9520, L501.2300 #### [facility] [address] [place], [address] Cholesterol in LDL [Mass/Vol] 56 mg/dL Normal 0-130 [facility] Comment on above: Performed By: #### L 500.4100, L100.0100, L500.4050, L501.5200, L501.9520, L501.2300 #### [facility] [address] [place], [address] Cholesterol in VLDL [Mass/Vol] 21 mg/dL Normal 5-40 [facility] Comment on above: Performed By: #### L 500.4100, L100.0100, L500.4050, L501.5200, L501.9520, L501.2300 #### [facility] [address] [place], [address] Triglyceride [Mass/Vol] 104 mg/dL Normal [facility] Comment on above: Result Comment: The drugs N-Acetylcysteine and Metamizole may falsely depress this assay. Serum Triglycerides Reference Interval Normal <150 mg/dL Borderline high 150 - 199 mg/dL High 200 - 499 mg/dL Very High > or = 500 mg/dL Performed By: #### L 500.4100, L100.0100, L500.4050, L501.5200, L501.9520, L501.2300 #### [facility] [address] [place], [address] Low density lipoprotein (LDL ) cholesterol measurementOrdered By: Christian March on 04-17-2024 Cholesterol in LDL [Mass/Vol] 56 mg/dL 0-130 [facility] Lymphocytes Auto (Unsp spec) [#/Vol]Ordered By: Christian March on 04-17-2024 Lymphocytes (Bld) [#/Vol] 1.39 10*3/uL 0.83-4.51 [facility] Lymphocytes/100 WBC Auto (Un sp spec)Ordered By: Christian March on 04-17-2024 Lymphocytes/100 WBC (Bld) 19.2 % 19-41 [facility] MCV (mean corpuscular volume ) determinationOrdered By: Christian March on 04-17-2024 MCV (RBC) [Entitic vol] 90.3 fL 81-99 [facility] Magnesiumon 04-17-2024 Magnesium [Mass/Vol] 2.0 mg/dL Normal 1.6-2.6 [facility] Comment on above: Performed By: #### L 500.4100, L100.0100, L500.4050, L501.5200, L501.9520, L501.2300 ####[facility] [address] [place], [address] Mean corpuscular hemoglobin (MCH) determinationOrdered By: Christian March on 04-17-2024 MCH (RBC) [Entitic mass] 29.2 pg 27.0-32.0 [facility] Mean corpuscular hemoglobin concentration (MCHC) determinationOrdered By: Christian March on 04-17-2024 MCHC (RBC) [Mass/Vol] 32.3 g/dL 32-36 [facility] Mean platelet volume determi nationOrdered By: Christian March on 04-17-2024 Platelet mean volume (Bld) [Entitic vol] 12.0 fL 6.2-12.0 [facility] Monocyte percentageOrdered B y: Christian March on 04-17-2024 Monocytes/100 WBC (Bld) 9.8 % 0-10 [facility] Neutrophil percentageOrdered By: Christian March on 04-17-2024 Neutrophils/100 WBC (Bld) 68.0 % 47-70 [facility] Nucleated red blood cell per centageOrdered By: Christian March on 04-17-2024 Nucleated RBC/100 WBC (Bld) [Ratio] 0 % 0-5 [facility] Phosphoruson 04-17-2024 Phosphate [Mass/Vol] 3.7 mg/dL Normal 2.5-4.9 [facility] Comment on above: Performed By: #### L 500.4100, L100.0100, L500.4050, L501.5200, L501.9520, L501.2300 #### [facility] [place], [address] Platelet countOrdered By: Lemuel March on 04-17-2024 Platelets (Bld) [#/Vol] 200 10*3/uL 150-450 [facility] Potassium measurementOrdered By: Christian March on 04-17-2024 Potassium [Moles/Vol] 3.5 mmol/L 3.5-5.1 [facility] RBC Auto (Bld) [#/Vol]Ordere d By: Christian March on 04-17-2024 RBC (Bld) [#/Vol] 4.45 10*6/uL 4.2-5.4 [facility] Serum anion gap measurementO rdered By: Christian March on 04-17-2024 Anion gap [Moles/Vol] 5 mmol/L 5-15 [facility] Serum globulin measurementOr dered By: Christian March on 04-17-2024 Globulin (S) [Mass/Vol] 3.1 g/dL 2.2-4.2 [facility] Serum or plasma alanine davis otransferase (ALT) measurementOrdered By: Christian March on 04-17-2024 ALT [Catalytic activity/Vol] 35 U/L 13-56 [facility] Serum or plasma albumin marilyn urement (mass/volume)Ordered By: Christian March on 04-17-2024 Albumin [Mass/Vol] 3.3 g/dL 3.2-5.0 [facility] Serum or plasma alkaline [place] sphatase measurementOrdered By: Christian March on 04-17-2024 ALP [Catalytic activity/Vol] 55 U/L 45-117 [facility] Serum or plasma calcium marilyn urement (mass/volume)Ordered By: Christian March on 04-17-2024 Calcium [Mass/Vol] 8.7 mg/dL 8.5-10.1 [facility] Serum or plasma cholesterol measurement (mass/volume)Ordered By: Christian March on 04-17-2024 Cholesterol [Mass/Vol] 133 mg/dL <200 [facility] Comment on above: <200 mg/dL Desirable 200-240 mg/dL Borderline >240 mg/dL High Risk Serum or plasma creatinine m easurement (mass/volume)Ordered By: Christian March on 04-17-2024 Creatinine [Mass/Vol] 0.94 mg/dL 0.55-1.02 [facility] Comment on above: The validity of the calculated GFR & GFRAA in patients over 70 years has not been determined. Clinical correlation is essential. Serum or plasma thyroxine (T 4) measurement (mass/volume)Ordered By: Saulo Chávez on 04-17-2024 T4 [Mass/Vol] 8.5 ug/dL 4.8-13.9 [facility] Serum or plasma urea nitroge n measurement (mass/volume)Ordered By: Christian March on 04-17-2024 Urea nitrogen [Mass/Vol] 13 mg/dL 7-18 [facility] Sodium levelOrdered By: Virgilio March on 04-17-2024 Sodium [Moles/Vol] 139 mmol/L 136-145 [facility] T4 Total, Thyroxinon 024 T4 [Mass/Vol] 8.5 ug/dL Normal 4.8-13.9 [facility] Comment on above: Performed By: #### L 100.0100, L500.2500 #### [facility] [address] [place], [address] TSH QnOrdered By: Christian mari on 04-17-2024 Thyroid Stimulating Hormone (TSH) 9.510 uIU/mL High 0.358-3.740 [facility] Thyroid Stim Hormone (TSH)on 04-17-2024 TSH 9.510 uIU/mL High 0.358-3.740 [facility] Comment on above: Performed By: #### L 500.4100, L100.0100, L500.4050, L501.5200, L501.9520, L501.2300 ####[facility] [id number] [place], [address] Total proteinOrdered By: Mitch March on 04-17-2024 Protein [Mass/Vol] 6.4 g/dL 6.4-8.2 [facility] Triglycerides measurementOrd ered By: Christian March on 04-17-2024 Triglyceride [Mass/Vol] 104 mg/dL <199 [facility] Comment on above: The drugs N-Acetylcy steine and Metamizole may falsely depress this assay.Serum Triglycerides Reference Interval Normal <150 mg/dL Borderline high 150 - 199 mg/dL High 200 - 499 mg/dL Very High > or = 500 mg/dL Troponin IOrdered By: Christian March on 04-17-2024 Troponin I High Sensitivity 46 pg/mL 3.0-54.0 [facility] Comment on above: Please Note: New Shannan t Units and Gender Specific Reference Ranges. For more information see Policy Stat Procedure [place] High Sensitivity Troponin (TNIH) and attachments. Very low density lipoprotein (VLDL) cholesterol measurementOrdered By: Christian March on 04-17-2024 VLDL Cholesterol 21 mg/dL 5-40 [facility] White blood cell (WBC) count Ordered By: Christian March on 04-17-2024 WBC (Bld) [#/Vol] 7.3 10*3/uL 4.4-11.0 [facility] 12 Lead EKGon 04-16-2024 12 Lead EKG [facility] [address] [place] [address] 12 Lead EKG 04/16/24 1900 MR#: [id number] Acct: [id number] Name: BARBARA HOLDER Rep #: [id number] : 1945 79 From: Wilian Yang MD Attending Dr: Dr. Saulo Chávez, DO Status: A DM IN Ordering Dr: Reynaldo Hernandez MD Date: 04/16/24 Location: [facility] Sex: F C Admitted: 04/16/24 Test Reason : EDEMA Blood Pressure : */* mmHG Vent. Rate : 112 BPM Atrial Rate : 112 BPM P-R Int : 168 ms QRS Dur : 90 ms QT Int : 352 ms P-R-T Axes : 63 -30 92 degrees QTcB Int : 480 ms Sinus tachycardia with Premature supraventricular complexes Left axis deviation Minimal voltage criteria for LVH, may be normal variant ( R in aVL ) Nonspecific T wave abnormality Abnormal ECG Confirmed by TREY HAMILTON, WILIAN ([id number]), photography editor JUANITA GUERRIER ([id number]) on 04/17/2024 9:47:19 AM Referred By: Reynaldo Hernandez Confirmed By: WILIAN YANG MD 04/17/24 0947 Date Wilian Yang MD CC: Dr. Reynaldo Hernandez MD; Dr. Mariposa Parker DO; Dr. Saulo Chávez DO Signed Normal [facility] BNP,B-Type NATRIURETIC PEPTI Lola 04-16-2024 Natriuretic peptide B (Bld) [Mass/Vol] 899.8 pg/mL High 0-100 [facility] Comment on above: Performed By: #### L 100.0100, L500.2500 #### [facility] [address] [place], [address] CBC W/Diff, Automatedon 03-23 Absolute Lymph 0.87 X10 3/uL Normal 0.83-4.51 [facility] Comment on above: Performed By: #### L 100.0100, L500.2500 #### [facility] [address] [place], [address] Absolute Neut 7.2 X10 3/uL Normal 2.0-7.7 [facility] Comment on above: Performed By: #### L 100.0100, L500.2500 #### [facility] [address] [place], [address] Basophils/100 WBC (Bld) 0.6 % Normal 0-1 [facility] Comment on above: Performed By: #### L 100.0100, L500.2500 #### [facility] [address] [place], [address] Eosinophils/100 WBC (Bld) 1.2 % Normal 0-5 [facility] Comment on above: Performed By: #### L 100.0100, L500.2500 #### [facility] [address] [place], [address] Erythrocyte distribution width (RBC) [Ratio] 14.9 % High 11.6-14.6 [facility] Comment on above: Performed By: #### L 100.0100, L500.2500 #### [facility] [address] [place], [address] Hematocrit (Bld) [Volume fraction] 42.5 % Normal 37-47 [facility] Comment on above: Performed By: #### L 100.0100, L500.2500 #### [facility] [address] [place], [address] Hemoglobin (Bld) [Mass/Vol] 13.5 g/dL Normal 12.0-15.0 [facility] Comment on above: Performed By: #### L 100.0100, L500.2500 #### [facility] [address] [place], [address] IG% 0.700 Normal 0.0-0.9 [facility] Comment on above: Result Comment: IG% - Immature Granulocytes (promyelocytes, myelocytes and metamyelocytes) > 1% indicates that a LEFT SHIFT is Present. Performed By: #### L 100.0100, L500.2500 #### [facility] [address] [place], [address] Lymphocytes/100 WBC (Bld) 9.8 % Low 19-41 [facility] Comment on above: Performed By: #### L 100.0100, L500.2500 #### [facility] [address] [place], [address] MCH (RBC) [Entitic mass] 29.1 pg Normal 27.0-32.0 [facility] Comment on above: Performed By: #### L 100.0100, L500.2500 #### [facility] [address] [place], [address] MCHC (RBC) [Mass/Vol] 31.8 g/dL Low 32-36 [facility] Comment on above: Performed By: #### L 100.0100, L500.2500 #### [facility] [address] [place], [address] MCV (RBC) [Entitic vol] 91.6 fL Normal 81-99 [facility] Comment on above: Performed By: #### L 100.0100, L500.2500 #### [facility] [address] [place], [address] Monocytes/100 WBC (Bld) 6.7 % Normal 0-10 [facility] Comment on above: Performed By: #### L 100.0100, L500.2500 #### [facility] [address] [place], [address] Neutrophils/100 WBC (Bld) 81.0 % High 47-70 [facility] Comment on above: Performed By: #### L 100.0100, L500.2500 #### [facility] [address] [place], [address] Nucleated RBC (Bld) [#/Vol] 0 10*3/uL Normal 0-5 [facility] Comment on above: Performed By: #### L 100.0100, L500.2500 #### [facility] [address] [place], [address] Platelet mean volume (Bld) [Entitic vol] 12.3 fL High 6.2-12.0 [facility] Comment on above: Performed By: #### L 100.0100, L500.2500 #### [facility] [address] [place], [address] Platelets (Bld) [#/Vol] 206 10*3/uL Normal 150-450 [facility] Comment on above: Performed By: #### L 100.0100, L500.2500 #### [facility] [address] [place], [address] RBC (Bld) [#/Vol] 4.64 10*6/uL Normal 4.2-5.4 [facility] Comment on above: Performed By: #### L 100.0100, L500.2500 #### [facility] [address] [place], [address] RDW SD 50.1 fl High 35.1-43.9 [facility] Comment on above: Performed By: #### L 100.0100, L500.2500 #### [facility] [address] [place], [address] WBC (Bld) [#/Vol] 8.9 10*3/uL Normal 4.4-11.0 [facility] Comment on above: Performed By: #### L 100.0100, L500.2500 #### [facility] [address] [place], [address] Chest PA and Lateralon 04-16 Chest PA and Lateral [facility] [address] [place] [address] Chest PA and Lateral MR#: [id number] Acct: [id number] Name: BARBARA HOLDER Rep #: [id number] : 1945 F 79 From: Ej vega MD PCP: Dr. Mariposa Parker, DO Status: [facility] ER Study: Chest PA and Lateral Date of Exam: 04/16/24 Exam# [id number] Ordering Dr: Reynaldo Hernandez MD [id number] INDICATION: sob EXAMINATION/TECHNIQUE : X-RAY - XR Chest 2 Views COMPARISON: 04/07/2024. FINDINGS: Slight increase in interstitial markings. Tortuous and calcified thoracic aorta. The heart is mildly enlarged. No pleural effusion or pneumothorax. Degenerative changes of the thoracic spine. RAD/Chest PA and Lateral IMPRESSION: Slight increase in interstitial markings represent edema and/or infection. Chronic interstitial lung changes. Electronically Signed: Ej Araujo MD at 20:25 EST , CC: Dr. Reynaldo Hernandez MD; Dr. Mariposa Parker DO Aircraft Communicator: Signed Normal [facility] Comprehensive Metabolic Prof vton 04-16-2024 Albumin [Mass/Vol] 3.6 g/dL Normal 3.2-5.0 [facility] Comment on above: Order Comment: 'TROP ' Serial specimen #1, #2 or #3: 1 Performed By: #### L 100.0100, L500.2500 #### [facility] [address] [place], [address] Albumin/Globulin [Mass ratio] 1.1 {ratio} Normal 0.9-2.4 [facility] Comment on above: Order Comment: 'TROP ' Serial specimen #1, #2 or #3: 1 Performed By: #### L 100.0100, L500.2500 #### [facility] [address] [place], [address] ALK P 57 U/L Normal 45-117 [facility] Comment on above: Order Comment: 'TROP ' Serial specimen #1, #2 or #3: 1 Performed By: #### L 100.0100, L500.2500 #### [facility] [address] [place], [address] ALT [Catalytic activity/Vol] 40 U/L Normal 13-56 [facility] Comment on above: Order Comment: 'TROP ' Serial specimen #1, #2 or #3: 1 Performed By: #### L 100.0100, L500.2500 #### [facility] [address] [place], [address] AST [Catalytic activity/Vol] 33 U/L Normal 15-37 [facility] Comment on above: Order Comment: 'TROP ' Serial specimen #1, #2 or #3: 1 Result Comment: Slig ht Hemolysis, Result may be falsely increased. Performed By: #### L 100.0100, L500.2500 #### [facility] [address] [place], [address] Bilirubin [Mass/Vol] 1.10 mg/dL High 0.20-1.00 [facility] Comment on above: Order Comment: 'TROP ' Serial specimen #1, #2 or #3: 1 Result Comment: For patients on eltrombopag therapy, use of Dimension [place] TBIL is not recommended. Performed By: #### L 100.0100, L500.2500 #### [facility] [address] [place], [address] BUN/CRE 14.9 RATIO Normal 10-20 [facility] Comment on above: Order Comment: 'TROP ' Serial specimen #1, #2 or #3: 1 Performed By: #### L 100.0100, L500.2500 #### [facility] [address] [place], [address] CA,Total 9.1 mg/dL Normal 8.5-10.1 [facility] Comment on above: Order Comment: 'TROP ' Serial specimen #1, #2 or #3: 1 Performed By: #### L 100.0100, L500.2500 #### [facility] [address] [place], [address] Chloride [Moles/Vol] 100 mmol/L Normal 98-107 [facility] Comment on above: Order Comment: 'TROP ' Serial specimen #1, #2 or #3: 1 Performed By: #### L 100.0100, L500.2500 #### [facility] [address] [place], [address] CO2 [Moles/Vol] 28.0 mmol/L Normal 21.0-32.0 [facility] Comment on above: Order Comment: 'TROP ' Serial specimen #1, #2 or #3: 1 Performed By: #### L 100.0100, L500.2500 #### [facility] [address] [place], [address] Creatinine [Mass/Vol] 1.01 mg/dL Normal 0.55-1.02 [facility] Comment on above: Order Comment: 'TROP ' Serial specimen #1, #2 or #3: 1 Result Comment: The validity of the calculated GFR GFRAA in patients over 70 years has not been determined. Clinical correlation is essential. Performed By: #### L 100.0100, L500.2500 #### [facility] [address] [place], [address] ECRCL 46.77 ml/min Normal [facility] Comment on above: Order Comment: 'TROP ' Serial specimen #1, #2 or #3: 1 Performed By: #### L 100.0100, L500.2500 #### [facility] [address] [place], [address] EST GFR - AA 68 mL/min Normal >60 [facility] Comment on above: Order Comment: 'TROP ' Serial specimen #1, #2 or #3: 1 Result Comment: Afri can Lebanese GFR Calc Performed By: #### L 100.0100, L500.2500 #### [facility] [address] [place], [address] GAP 10 Normal 5-15 [facility] Comment on above: Order Comment: 'TROP ' Serial specimen #1, #2 or #3: 1 Performed By: #### L 100.0100, L500.2500 #### [facility] [address] [place], [address] GFR/1.73 sq M.predicted among non-blacks MDRD (S/P/Bld) [Vol rate/Area] 56 mL/min/{1.73_m2} Low >60 [facility] Comment on above: Order Comment: 'TROP ' Serial specimen #1, #2 or #3: 1 Result Comment: Non- GFR Calc Performed By: #### L 100.0100, L500.2500 #### [facility] [address] [place], [address] Globulin (S) [Mass/Vol] 3.3 g/dL Normal 2.2-4.2 [facility] Comment on above: Order Comment: 'TROP ' Serial specimen #1, #2 or #3: 1 Performed By: #### L 100.0100, L500.2500 #### [facility] [address] [place], [address] Glucose [Mass/Vol] 142 mg/dL High 74-106 [facility] Comment on above: Order Comment: 'TROP ' Serial specimen #1, #2 or #3: 1 Result Comment: Fast ing Glucose result greater than or equal to 126 mg/dL suggests DIABETES MELLITUS per A.D.A. criteria. Performed By: #### L 100.0100, L500.2500 #### [facility] [address] [place], [address] Potassium [Moles/Vol] 3.9 mmol/L Normal 3.5-5.1 [facility] Comment on above: Order Comment: 'TROP ' Serial specimen #1, #2 or #3: 1 Result Comment: Slig ht Hemolysis, Result may be falsely increased. Performed By: #### L 100.0100, L500.2500 #### [facility] [address] [place], [address] Sodium [Moles/Vol] 138 mmol/L Normal 136-145 [facility] Comment on above: Order Comment: 'TROP ' Serial specimen #1, #2 or #3: 1 Performed By: #### L 100.0100, L500.2500 #### [facility] [address] [place], [address] T PROT 6.9 g/dL Normal 6.4-8.2 [facility] Comment on above: Order Comment: 'TROP ' Serial specimen #1, #2 or #3: 1 Performed By: #### L 100.0100, L500.2500 #### [facility] [address] [place], [address] Urea nitrogen [Mass/Vol] 15 mg/dL Normal 7-18 [facility] Comment on above: Order Comment: 'TROP ' Serial specimen #1, #2 or #3: 1 Performed By: #### L 100.0100, L500.2500 #### [facility] [address] [place], [address] Echo Complete W/ Contraston 04-16-2024 Echo Complete W/ Contrast [facility] [address] [place] [address] Echo Complete W/ Contrast 04/17/24 0857 MR#: [id number] Acct: [id number] Name: BARBARA HOLDER Rep #: [id number] : 1945 79 From: Wilian Yang MD Attending Dr: Dr. Saulo Chávez DO Status: A DM IN Ordering Dr: Christian White DO Date: 04/16/24 Location: U Sex: F C Admitted: 04/16/24 Reason For Study: CHF Procedure This was a 2D Doppler, Color Flow transthoracic echocardiogram. The study was technically difficult. Contrast injection was performed. Exam performed portable in patient room. Left Ventricle Moderately dilated left ventricle. The left ventricular ejection fraction is 10 %. Stage 2 diastolic dysfunction. There is severe global hypokinesis of the left ventricle. Right Ventricle Normal RV size. Normal systolic function. Atria Normal left atrium. Normal right atrium. Mitral Valve Normal mitral valve. Mild (1+) eccentric mitral valve insufficiency. Tricuspid Valve Normal tricuspid valve. Aortic Valve Trisinus/trileaflet aortic valve. Mild focal aortic valve calcification. Pulmonic Valve Normal pulmonic valve. Great Vessels Normal aortic root. The pulmonary artery is normal size. Inferior vena cava collapse with respiration. Pericardium/Pleural Small (<1.0 cm) pericardial effusion. Medication Diluted definity 2ml given slow IV push to enhance endocardial definition. MMode/2D Measurements Calculations LVIDd: 6.3 cm IVSd: 0.93 cm LAV(MOD-bp): 48.8 ml LVIDs: 6.2 cm LVPWd: 0.75 cm FS: 2.0 % LAV(MOD-bp) Indexed: 26.5 ml/m2 LAV(MOD-sp2): 44.7 ml LAV(MOD-sp4): 43.4 ml SV(MOD-sp4): 17.4 ml SV(sp4-el): 16.7 ml LVAd ap4: 39.7 cm2 LVLd ap4: 8.9 cm SI(MOD-sp4): 9.4 ml/m2 EDV(MOD-sp4): 148.2 ml EDV(sp4-el): 149.8 ml LVAs ap4: 36.3 cm2 LVLs ap4: 8.4 cm ESV(MOD-sp4): 130.8 ml ESV(sp4-el): 133.1 ml EF(MOD-sp4): 11.7 % EF(sp4-el): 11.1 % LA dimension(2D): 4.0 cm LA A4 area: 18.2 cm2 RA A4 area: 12.4 cm2 Time Measurements MV dec time: 0.10 sec Doppler Measurements Calculations MV E max sofia: 117.0 cm/sec Lat Peak E' Sofia: 5.0 cm/sec Med Peak E' Sofia: 4.0 cm/sec MV A max sofia: 81.7 cm/sec E/E' lat: 23.2 E/E' med: 28.9 MV E/A: 1.4 MV V2 max: 129.5 cm/sec MV dec slope: 1178 cm/sec2 Ao V2 max: 104.0 cm/sec MV max P.7 mmHg Ao max P.3 mmHg MV V2 mean: 68.9 cm/sec Ao V2 mean: 75.1 cm/sec MV mean P.5 mmHg Ao mean P.5 mmHg MV V2 VTI: 20.7 cm Ao V2 VTI: 16.5 cm AV (velocity ratio): 0.84 LV V1 max: 87.2 cm/sec PA V2 max: 92.3 cm/sec LV V1 max P.0 mmHg PA V2 mean: 67.2 cm/sec LV V1 mean P.7 mmHg LV V1 mean: 60.0 cm/sec LV V1 VTI: 13.8 cm ECHO/Echo Complete W/ Contrast Interpretation Summary The left ventricular ejection fraction is 10 %. Moderately dilated left ventricle. Mild (1+) eccentric mitral valve insufficiency. Stage 2 diastolic dysfunction. Ordering Physician: Christian White Referring Physician: Reynaldo Hernandez Performed By: Monica Lozano RCS 04/17/24 1128 Date Wilian Yang MD CC: Dr. Reynaldo Hernandez MD; Dr. Christian White DO; Dr. Mariposa Parker DO; Dr. Saulo Chávez DO Date Dictated: 04/17/24 0857 Date Transcribed: 04/17/241127 Aircraft Communicator: Signed Normal [facility] Emergency Department Summary on 04-16-2024 Emergency Department Summary [facility] Medical Records Department [address] [place] [id number] Emergency Department Summary 04/16/24 MR#: [id number] Acct: [id number] Name: BARBARA HOLDER Rep #: [id number] : 1945 79 From: Reynaldo Hernandez MD PCP: Dr. Mariposa Parker DO Status:REG ER Location: ED HPI History of Present Illness Chief Complaint: Edema Informant: patient and family (x2) Narrative Narrative: 79-year-old female presenting with edema in both of her feet for the past several days, she states that family members noticed it more than she did. For the last several months she has been having dyspnea with exertion that has been a little worse lately so she had an outpatient chest x-ray a week or 2 ago that showed a small pleural effusion and she was referred to pulmonology, she has not seen them yet. She denies having any chest pain, unexplained syncope. For the last 2 weeks she has had some nausea, some diarrhea and abdominal bloating that is not as bad now as it had been she saw her doctor for that was given some Zofran. She has no history of liver problems that she knows of. [facility] Medical History Polymyalgia rheumatica Dyspnea on exertion Rheumatoid arthritis Gout Hypothyroidism Essential hypertension Type 2 diabetes mellitus Home Medications ???Medication ???Instructions ???Recorded ???Last Taken ???Type gabapentin 100 mg capsule 100 mg PO BID 04/30/15 Unknown History triamterene 37.5 1 cap PO DAILY 04/30/15 Unknown History mg-hydrochlorothiazid e 25 mg capsule allopurinol 100 mg tablet 200 mg PO DAILY 10/18/20 Unknown History levothyroxine 100 mcg tablet 100 mcg PO DAILY 10/18/20 11/15/20 History acetaminophen 500 mg tablet 500 mg PO Q6H PRN Pain 10/20/20 Unknown History albuterol sulfate 90 mcg/actuation 1 puff inhalation PRN shortness of 04/16/24 Unknown History aerosol inhaler breath or wheezing calcium 600 mg (as carbonate)-vit 1 tab PO DAILY 04/16/24 Unknown History D3 20 mcg (800 unit) chewable tablet (Caltrate plus D) hydroxychloroquine 200 mg tablet 200 mg PO BID 04/16/24 Unknown History (Plaquenil) mometasone-formoterol HFA 100 2 puff inhalation BID 04/16/24 Unknown History mcg-5 mcg/actuation aerosol inhaler (Dulera) ondansetron 4 mg disintegrating 4 - 8 mg PO Q6H PRN PRN nausea 04/16/24 Unknown History tablet Allergy/AdvReac Type Severity Reaction Status Date / Time amoxicillin AdvReac GI upset, Verified 04/16/24 17:51 Nausea and vomiting Family History Mother History of DVT (deep vein thrombosis) Hypertension Father Cancer Lung Sister CAD (coronary artery disease) History of coronary artery bypass surgery Surgical History History of left heart catheterization (LHC) ( 11/15/20) H/O right knee surgery History of carpal tunnel surgery History of hysterectomy History of appendectomy Social History Smoking Status: Never smoker alcohol intake: current details: occasional substance use type: does not use caffeine: Yes Type: coffee Number of servings: 3 and tea ROS ROS ED Constitutional Constitutional ED: Denies chills, fever(s) or sweats Eyes Eyes: Denies change in vision or diplopia ENT ENT ED: Denies rhinorrhea or sore throat Cardiovascular Cardiovascular: Reports leg edema; Denies chest pain, leg ulcers, lightheadedness, orthopnea, orthostatic symptoms, palpitations, paroxysmal nocturnal dyspnea, racing heartbeat or syncope Respiratory/Chest Respiratory/Chest: Reports dyspnea on exertion; Denies cough, orthopnea or paroxysmal nocturnal dyspnea Gastrointestinal Gastrointestinal: Denies abdominal pain, diarrhea, nausea or vomiting Genitourinary Genitourinary ED: Denies dysuria or hematuria Musculoskeletal Musculoskeletal: Denies back pain or neck pain Integumentary Denies abscess or rash Neurologic Neurologic: Denies headache(s), paresthesias or weakness Psychiatric Psychiatric: Denies anxiety or suicidal thoughts EXAM Physical Exam Const Vital Signs: 04/16/24 17:51 04/16/24 18:19 04/16/24 18:19 Temperature 98.7 F Temperature Source Oral Pulse Rate 123 H 119 H Respiratory Rate 12 24 H Respiratory Effort Short of Breath Respiratory Pattern Normal Blood Pressure 148/91 H 141/71 H Blood Pressure Mean 110 94 Pulse Ox 99 96 Oxygen Delivery Method Room Air Room Air 04/16/24 19:10 04/16/24 20:00 04/16/24 22:03 Temperature Temperature Source Pulse Rate 118 H 112 H Respiratory Rate 24 H 28 H Respiratory Effort Respiratory Pattern Blood Pressure 115/67 118/78 (more content not included)... Normal [facility] H AND P Exam - Hospitaliston 04-16-2024 H&P Exam - Hospitalist [facility] Medical Records Department [address] [place] [address] H P Exam - Hospitalist 04/16/24 2240 MR#: [id number] Acct: [id number] Name: BARBARA HOLDER Rep #: [id number] : 1945 79 From: Christian White DO PCP: Dr. Mariposa Parker, DO Status:ADM IN Location: PCU [id number] HPI - General General Date of Admission: 04/16/24 Date of Service: 04/16/24 Chief Complaint: Increasing DE LA GARZA and LE Edema. HPI Narrative BARBARA HOLDER, is a 79 F with a past medical history of essential hypertension; on triamterene- HCTZ, hypothyroidism; on levothyroxine, obesity; with BMI of 32 this admission, DM-2; of unknown control, diabetic neuropathy; on gabapentin, history of asthma; on mometasone-formoterol , RA and PMR; on hydroxychloroquine, history of gout; on allopurinol, history of LHC (2020), history of appendectomy, history of hysterectomy, OA; with history of Right knee surgery and recent evaluation by her PCP for DE LA GARZA with CXR that revealed small pleural effusions with patient ordered a consultation with pulmonology that is still pending at this time who presents to [facility] ER complaining of increasing DE LA GARZA and lower extremity edema. Mrs. Holder reports her symptoms began approximately 2 weeks prior to admission with the gradual-onset of progressively worsening dyspnea on exertion. She also admits to intermittent nausea, mild diarrhea and abdominal bloating that her physician treated with prn ondansetron with noted modest improvement. She denies a history of CHF, chest pain, syncope/near syncope, palpitations or heart racing. She admits to increased sodium and fluid intake over the holidays and she states her SOB was not improved with her inhalers. In the ER she was noted to have a significantly elevated BNP of 899.8 pg/mL with 1+LE edema and confirmatory radiographic evidence of increased interstitial markings consistent with suspected AE of CHF that is apparently new complicated by clinical evidence of Respiratory Insufficiency with survey research teacher on-call recommending admission to the hospitalist service with formal consultation pending in the AM and appreciated in advance. She was then admitted to the PCU for ongoing care for a stay that is expected to extend beyond 2 midnights. [facility] Medical History Polymyalgia rheumatica Dyspnea on exertion Rheumatoid arthritis Gout Hypothyroidism Essential hypertension Type 2 diabetes mellitus Home Medications ???Medication ???Instructions ???Recorded ???Last Taken ???Type gabapentin 100 mg capsule 100 mg PO BID 04/30/15 Unknown History triamterene 37.5 1 cap PO DAILY 04/30/15 Unknown History mg-hydrochlorothiazid e 25 mg capsule allopurinol 100 mg tablet 200 mg PO DAILY 10/18/20 Unknown History levothyroxine 100 mcg tablet 100 mcg PO DAILY 10/18/20 11/15/20 History acetaminophen 500 mg tablet 500 mg PO Q6H PRN Pain 10/20/20 Unknown History albuterol sulfate 90 mcg/actuation 1 puff inhalation PRN shortness of 04/16/24 Unknown History aerosol inhaler breath or wheezing calcium 600 mg (as carbonate)-vit 1 tab PO DAILY 04/16/24 Unknown History D3 20 mcg (800 unit) chewable tablet (Caltrate plus D) hydroxychloroquine 200 mg tablet 200 mg PO BID 04/16/24 Unknown History (Plaquenil) mometasone-formoterol HFA 100 2 puff inhalation BID 04/16/24 Unknown History mcg-5 mcg/actuation aerosol inhaler (Dulera) ondansetron 4 mg disintegrating 4 - 8 mg PO Q6H PRN PRN nausea 04/16/24 Unknown History tablet Allergy/AdvReac Type Severity Reaction Status Date / Time amoxicillin AdvReac GI upset, Verified 04/16/24 17:51 Nausea and vomiting Family History Mother History of DVT (deep vein thrombosis) Hypertension Father Cancer Lung Sister CAD (coronary artery disease) History of coronary artery bypass surgery Surgical History History of left heart catheterization (LHC) ( 11/15/20) H/O right knee surgery History of carpal tunnel surgery History of hysterectomy History of appendectomy Social History Smoking Status: Never smoker alcohol intake: current details: occasional substance use type: does not use caffeine: Yes Type: coffee Number of servings: 3 and tea ROS ROS Narrative Review of Systems: Constitutional: Patient denies fever or chills. Eyes: Patient denies changes in vision or discharge from eyes. ENT: Patient denies runny nose, sore throat or ear pain. Resp: Patient admits to DE LA GARZA but she denies cough. CV: Patient admits to LE edema but denies chest pain, heart racing or palpitations. GI: Patient admits to loose stools with (more content not included)... Normal [facility] L501.4020on 04-16-2024 TROPONIN-I HS 43 pg/mL Normal 3.0-54.0 [facility] Comment on above: Order Comment: 'TROP ' Serial specimen #1, #2 or #3: 2 Result Comment: Plea se Note: New Test Units and Gender Specific Reference Ranges. For more information see Policy Stat Procedure [place] High Sensitivity Troponin (TNIH) and attachments. Performed By: #### L 100.0100, L500.2500 #### [facility] [address] [place], [address] TROPONIN-I HS 43 pg/mL Normal 3.0-54.0 [facility] Comment on above: Order Comment: 'TROP ' Serial specimen #1, #2 or #3: 1 Result Comment: Plea se Note: New Test Units and Gender Specific Reference Ranges. For more information see Policy Stat Procedure [place] High Sensitivity Troponin (TNIH) and attachments. Performed By: #### L 100.0100, L500.2500 #### [facility] [address] [place] [place], [address] Chest PA and Lateralon 04-07 Chest PA and Lateral [facility] [address] [place] [address] Chest PA and Lateral MR#: [id number] Acct: [id number] Name: BARBARA HOLDER Rep #: [id number] : 1945 F 78 From: Sudhakar Cruz MD PCP: Dr. Mariposa Parker, DO Status: REG CLI Study: Chest PA and Lateral Date of Exam: 04/07/24 Exam# [id number] Ordering Dr: Haydee Hernandez MALLET CUTTER-C [id number] STUDY: X-RAY CHEST REASON FOR EXAM: Female, 78 years old. SHORTNESS OF BREATH TECHNIQUE: PA and lateral views of the chest. COMPARISON: 08/05/2023 FINDINGS: The lungs are clear and expanded. Small right pleural effusion. There is moderate cardiac enlargement. Normal mediastinum and jamia. Normal visualized pulmonary arteries. Normal visualized aortic arch and descending thoracic aorta. Normal visualized thoracic spine. Normal visualized ribs, clavicles, and shoulders. There is no demonstrated abnormality of the visualized soft tissue structures of the upper abdomen. RAD/Chest PA and Lateral IMPRESSION: Small right pleural effusion. Electronically Signed: Sudhakar Cruz MD at 11:58 EST , CC: TAVIA Hernandez; Dr. Mariposa Parker DO Aircraft Communicator: Signed Normal [facility] Absolute lymphocyte countOrd ered By: Mariposa Parker on 07-24-2023 Lymphocytes Auto (Unsp spec) [#/Vol] 1.44 10*3/uL 0.83-4.51 [facility] Automated lymphocyte count a s percentage of total leukocytesOrdered By: Mariposa Parker on 07-24-2023 Lymphocytes/100 WBC Auto (Unsp spec) 24.4 % 19-41 [facility] Basophil percentageOrdered B y: Mariposa Parker on 07-24-2023 Basophils/100 WBC (Bld) 1.7 % 0-1 [facility] Bilirubin [Mass/Vol] 0.70 mg/dL 0.20-1.00 [facility] Comment on above: For patients on eltr ombopag therapy, use of Dimension [place] TBIL is not recommended. Chloride [Moles/Vol] 103 mmol/L 98-107 [facility] Eosinophils/100 WBC (Bld) 4.4 % 0-5 [facility] Glucose [Mass/Vol] 99 mg/dL 74-106 [facility] Hemoglobin (Bld) [Mass/Vol] 14.7 g/dL 12.0-15.0 [facility] Monocytes/100 WBC (Bld) 9.0 % 0-10 [facility] Neutrophils (Bld) [#/Vol] 3.6 10*3/uL 2.0-7.7 [facility] Neutrophils/100 WBC (Bld) 60.3 % 47-70 [facility] Potassium [Moles/Vol] 4.4 mmol/L 3.5-5.1 [facility] Protein [Mass/Vol] 7.9 g/dL 6.4-8.2 [facility] Sodium [Moles/Vol] 139 mmol/L 136-145 [facility] WBC (Bld) [#/Vol] 5.9 10*3/uL 4.4-11.0 [facility] Determination of erythrocyte mean corpuscular volume (MCV)Ordered By: Mariposa Parker on 07-24-2023 MCV (RBC) [Entitic vol] 94.0 fL 81-99 [facility] Erythrocyte distribution wid th ratioOrdered By: Mariposa Parker on 07-24-2023 Erythrocyte distribution width (RBC) [Ratio] 13.9 % 11.6-14.6 [facility] Erythrocyte distribution wid th standard deviationOrdered By: Mariposa Parker on 07-24-2023 Erythrocyte distribution width (RBC) [Entitic vol] 48.2 fL 35.1-43.9 [facility] Hematocrit Auto (Bld) [Volum e fraction]Ordered By: Mariposa Parker on 07-24-2023 Hematocrit (Bld) [Volume fraction] 47.1 % 37-47 [facility] Immature granulocytes/100 WB C Auto (Bld)Ordered By: Mariposa Parker on 07-24-2023 Immature granulocytes/100 WBC (Bld) 0.200 % 0.0-0.9 [facility] Comment on above: IG% - Immature Granu locytes (promyelocytes, myelocytes and metamyelocytes) > 1% indicates that a LEFT SHIFT is Present. Laboratory - Chemistry and C hemistry - challengeOrdered By: Mariposa Parker on 07-24-2023 Albumin/Globulin [Mass ratio] 1.3 {ratio} 0.9-2.4 [facility] ALP [Catalytic activity/Vol] 62 U/L 45-117 [facility] ALT [Catalytic activity/Vol] 25 U/L 13-56 [facility] CO2 [Moles/Vol] 31.0 mmol/L 21.0-32.0 [facility] Globulin (S) [Mass/Vol] 3.4 g/dL 2.2-4.2 [facility] Natriuretic peptide B (Bld) [Mass/Vol] 200.5 pg/mL 0-100 [facility] Urea nitrogen/Creatinine [Mass ratio] 19.0 mg/mg 10-20 [facility] - Hematology and Cell countsOrdered By: Mariposa Parker on 07-24-2023 MCH (RBC) [Entitic mass] 29.3 pg 27.0-32.0 [facility] MCHC (RBC) [Mass/Vol] 31.2 g/dL 32-36 [facility] Nucleated RBC/100 WBC (Bld) [Ratio] 0 % 0-5 [facility] Platelet mean volume (Bld) [Entitic vol] 13.3 fL 6.2-12.0 [facility] Platelets (Bld) [#/Vol] 170 10*3/uL 150-450 [facility] No Panel InformationOrdered By: Mariposa Parker on 07-24-2023 Estimated GFR (MDRD) Amer 58 mL/min >60 [facility] Comment on above: GFR Calc Estimated GFR (MDRD) Non-Af Amer 48 mL/min >60 [facility] Comment on above: Non- GFR Calc RBC Auto (Bld) [#/Vol]Ordere d By: Mariposa Parker on 07-24-2023 RBC (Bld) [#/Vol] 5.01 10*6/uL 4.2-5.[address] [facility] Serum or plasma calcium marilyn urement (mass/volume)Ordered By: Mariposa Parker on 07-24-2023 Calcium [Mass/Vol] 9.6 mg/dL 8.5-10.1 [facility] Serum or plasma creatinine m easurement (mass/volume)Ordered By: Mariposa Parker on 07-24-2023 Creatinine [Mass/Vol] 1.16 mg/dL 0.55-1.02 [facility] Comment on above: The validity of the calculated GFR & GFRAA in patients over 70 years has not been determined. Clinical correlation is essential. Serum or plasma urea nitroge n measurement (mass/volume)Ordered By: Mariposa Parker on 07-24-2023 Urea nitrogen [Mass/Vol] 22 mg/dL 7-18 [facility] Thin prep Papanicolaou smear with manual screeningOrdered By: Mariposa Parker on 07-24-2023 Thin prep Papanicolaou smear with manual screening 4.5 g/dL 3.2-5.0 [facility] Thin prep Papanicolaou smear with manual screening 23 U/L 15-37 [facility] Thin prep Papanicolaou smear with manual screening 5 5-15 [facility] Absolute lymphocyte countOrd ered By: Mel Maurer on 04-29-2023 Lymphocytes Auto (Unsp spec) [#/Vol] 2.17 10*3/uL 0.83-4.51 [facility] Basophil percentageOrdered B y: Mel Maurer on 04-29-2023 Basophils/100 WBC (Bld) 1.4 % 0-1 [facility] Bilirubin [Mass/Vol] 0.60 mg/dL 0.20-1.00 [facility] Comment on above: For patients on eltr ombopag therapy, use of Dimension [place] TBIL is not recommended. Chloride [Moles/Vol] 101 mmol/L 98-107 [facility] Eosinophils/100 WBC (Bld) 3.9 % 0-5 [facility] Glucose [Mass/Vol] 100 mg/dL 74-106 [facility] Comment on above: Fasting Glucose resu lt from 100 to 125 mg/dL suggests IMPAIRED HOMEOSTASIS per A.D.A. criteria. Neutrophils (Bld) [#/Vol] 4.0 10*3/uL 2.0-7.7 [facility] Neutrophils/100 WBC (Bld) 55.2 % 47-70 [facility] Potassium [Moles/Vol] 4.0 mmol/L 3.5-5.1 [facility] Protein [Mass/Vol] 7.9 g/dL 6.4-8.2 [facility] Sodium [Moles/Vol] 138 mmol/L 136-145 [facility] WBC (Bld) [#/Vol] 7.2 10*3/uL 4.4-11.0 [facility] Blood erythrocytes count (nu mber/volume)Ordered By: Mel Maurer on 04-29-2023 RBC (Bld) [#/Vol] 4.96 10*6/uL 4.2-5.4 [facility] Blood hemoglobin measurement (mass/volume)Ordered By: Mel Maurer on 04-29-2023 Hemoglobin (Bld) [Mass/Vol] 14.5 g/dL 12.0-15.0 [facility] Blood lymphocytes/100 leukoc ytesOrdered By: Mel Maurer on 04-29-2023 Lymphocytes/100 WBC (Bld) 30.3 % 19-41 [facility] Blood monocytes/100 leukocyt esOrdered By: Mel Maurer on 04-29-2023 Monocytes/100 WBC (Bld) 8.9 % 0-10 [facility] Blood platelet mean volumeOr dered By: Mel Maurer on 04-29-2023 Platelet mean volume (Bld) [Entitic vol] 12.7 fL 6.2-12.0 [facility] Determination of erythrocyte mean corpuscular volume (MCV)Ordered By: Mel Maurer on 04-29-2023 MCV (RBC) [Entitic vol] 96.8 fL 81-99 [facility] Hematocrit Auto (Bld) [Volum e fraction]Ordered By: Mel Maurer on 04-29-2023 Hematocrit (Bld) [Volume fraction] 48.0 % 37-47 [facility] - Chemistry and C hemistry - challengeOrdered By: Mel Maurer on 04-29-2023 ALP [Catalytic activity/Vol] 62 U/L 45-117 [facility] ALT [Catalytic activity/Vol] 26 U/L 13-56 [facility] CO2 [Moles/Vol] 29.0 mmol/L 21.0-32.0 [facility] Globulin (S) [Mass/Vol] 3.8 g/dL 2.2-4.2 [facility] Urea nitrogen/Creatinine [Mass ratio] 24.0 mg/mg 10-20 [facility] - Hematology and Cell countsOrdered By: Mel Maurer on 04-29-2023 Erythrocyte distribution width (RBC) [Entitic vol] 48.1 fL 35.1-43.9 [facility] Erythrocyte distribution width (RBC) [Ratio] 13.4 % 11.6-14.6 [facility] Immature granulocytes/100 WBC (Bld) 0.300 % 0.0-0.9 [facility] Comment on above: IG% - Immature Granu locytes (promyelocytes, myelocytes and metamyelocytes) > 1% indicates that a LEFT SHIFT is Present. MCH (RBC) [Entitic mass] 29.2 pg 27.0-32.0 [facility] Nucleated RBC/100 WBC (Bld) [Ratio] 0 % 0-5 [facility] MCHC Auto (RBC) [Mass/Vol]Or dered By: Mel Maurer on 04-29-2023 MCHC (RBC) [Mass/Vol] 30.2 g/dL 32-36 [facility] No Panel InformationOrdered By: Mel Maurer on 04-29-2023 Estimated GFR (MDRD) Amer 72 mL/min >60 [facility] Comment on above: GFR Calc Estimated GFR (MDRD) Non-Af Amer 60 mL/min >60 [facility] Comment on above: Non- GFR Calc Platelets bldOrdered By: Felton Maurer on 04-29-2023 Platelets (Bld) [#/Vol] 198 10*3/uL 150-450 [facility] Serum or plasma albumin marilyn urement (mass/volume)Ordered By: Mel Maurer on 04-29-2023 Albumin [Mass/Vol] 4.1 g/dL 3.2-5.0 [facility] Serum or plasma albumin/glob ulin mass ratioOrdered By: Mel Maurer on 04-29-2023 Albumin/Globulin [Mass ratio] 1.1 {ratio} 0.9-2.4 [facility] Serum or plasma calcium marilyn urement (mass/volume)Ordered By: Mel Maurer on 04-29-2023 Calcium [Mass/Vol] 9.3 mg/dL 8.5-10.1 [facility] Serum or plasma creatinine m easurement (mass/volume)Ordered By: Mel Maurer on 04-29-2023 Creatinine [Mass/Vol] 0.96 mg/dL 0.55-1.02 [facility] Comment on above: The validity of the calculated GFR & GFRAA in patients over 70 years has not been determined. Clinical correlation is essential. Serum or plasma urea nitroge n measurement (mass/volume)Ordered By: Mel Maurer on 04-29-2023 Urea nitrogen [Mass/Vol] 23 mg/dL 7-18 [facility] Thin prep Papanicolaou smear with manual screeningOrdered By: Mel Maurer on 04-29-2023 Thin prep Papanicolaou smear with manual screening 25 U/L 15-37 [facility] Thin prep Papanicolaou smear with manual screening 8 5-15 [facility] Culture, urineOrdered By: Ra gerry Hernandez on 03-11-2023 Bacteria identified Cx Nom (U) Mixed Gram Pos & Gram Neg Org [facility] Absolute lymphocyte countOrd ered By: Mel Maurer on 11-05-2022 Lymphocytes Auto (Unsp spec) [#/Vol] 1.53 10*3/uL 0.83-4.51 [facility] Basophil percentageOrdered B y: Mel Maurer on 11-05-2022 Basophils/100 WBC (Bld) 1.5 % 0-1 [facility] Bilirubin [Mass/Vol] 0.60 mg/dL 0.20-1.00 [facility] Comment on above: For patients on eltr ombopag therapy, use of Dimension [place] TBIL is not recommended. Chloride [Moles/Vol] 102 mmol/L 98-107 [facility] Eosinophils/100 WBC (Bld) 5.1 % 0-5 [facility] Glucose [Mass/Vol] 124 mg/dL 74-106 [facility] Comment on above: Fasting Glucose resu lt from 100 to 125 mg/dL suggests IMPAIRED HOMEOSTASIS per A.D.A. criteria. Neutrophils (Bld) [#/Vol] 3.1 10*3/uL 2.0-7.7 [facility] Neutrophils/100 WBC (Bld) 57.6 % 47-70 [facility] Potassium [Moles/Vol] 3.9 mmol/L 3.5-5.1 [facility] Protein [Mass/Vol] 7.9 g/dL 6.4-8.2 [facility] Sodium [Moles/Vol] 137 mmol/L 136-145 [facility] WBC (Bld) [#/Vol] 5.5 10*3/uL 4.4-11.0 [facility] Blood erythrocytes count (nu mber/volume)Ordered By: Mel Maurer on 11-05-2022 RBC (Bld) [#/Vol] 4.75 10*6/uL 4.2-5.4 [facility] Blood hemoglobin measurement (mass/volume)Ordered By: Mel Maurer on 11-05-2022 Hemoglobin (Bld) [Mass/Vol] 13.8 g/dL 12.0-15.0 [facility] Blood lymphocytes/100 leukoc ytesOrdered By: Mel Maurer on 11-05-2022 Lymphocytes/100 WBC (Bld) 28.1 % 19-41 [facility] Blood monocytes/100 leukocyt esOrdered By: Mel Maurer on 11-05-2022 Monocytes/100 WBC (Bld) 7.3 % 0-10 [facility] Blood platelet mean volumeOr dered By: Mel Maurer on 11-05-2022 Platelet mean volume (Bld) [Entitic vol] 12.1 fL 6.2-12.0 [facility] Determination of erythrocyte mean corpuscular volume (MCV)Ordered By: Mel Maurer on 11-05-2022 MCV (RBC) [Entitic vol] 96.0 fL 81-99 [facility] Hematocrit Auto (Bld) [Volum e fraction]Ordered By: Mel Maurer on 11-05-2022 Hematocrit (Bld) [Volume fraction] 45.6 % 37-47 [facility] Laboratory - Chemistry and C hemistry - challengeOrdered By: Mel Maurer on 11-05-2022 ALP [Catalytic activity/Vol] 68 U/L 45-117 [facility] ALT [Catalytic activity/Vol] 23 U/L 13-56 [facility] CO2 [Moles/Vol] 30.0 mmol/L 21.0-32.0 [facility] Globulin (S) [Mass/Vol] 4.1 g/dL 2.2-4.2 [facility] Urea nitrogen/Creatinine [Mass ratio] 21.6 mg/mg 10-20 [facility] Laboratory - Hematology and Cell countsOrdered By: Mel Maurer on 11-05-2022 Erythrocyte distribution width (RBC) [Entitic vol] 49.8 fL 35.1-43.9 [facility] Erythrocyte distribution width (RBC) [Ratio] 14.0 % 11.6-14.6 [facility] Immature granulocytes/100 WBC (Bld) 0.400 % 0.0-0.9 [facility] Comment on above: IG% - Immature Granu locytes (promyelocytes, myelocytes and metamyelocytes) > 1% indicates that a LEFT SHIFT is Present. MCH (RBC) [Entitic mass] 29.1 pg 27.0-32.0 [facility] Nucleated RBC/100 WBC (Bld) [Ratio] 0 % 0-5 [facility] MCHC Auto (RBC) [Mass/Vol]Or dered By: Mel Maurer on 11-05-2022 MCHC (RBC) [Mass/Vol] 30.3 g/dL 32-36 [facility] No Panel InformationOrdered By: Mel Maurer on 11-05-2022 Estimated GFR (MDRD) Amer 67 mL/min >60 [facility] Comment on above: GFR Calc Estimated GFR (MDRD) Non-Af Amer 56 mL/min >60 [facility] Comment on above: Non- GFR Calc Platelets bldOrdered By: Felton Maurer on 11-05-2022 Platelets (Bld) [#/Vol] 206 10*3/uL 150-450 [facility] Serum or plasma albumin marilyn urement (mass/volume)Ordered By: Mel Maurer on 11-05-2022 Albumin [Mass/Vol] 3.8 g/dL 3.2-5.0 [facility] Serum or plasma albumin/glob ulin mass ratioOrdered By: Mel Maurer on 11-05-2022 Albumin/Globulin [Mass ratio] 0.9 {ratio} 0.9-2.4 [facility] Serum or plasma calcium marilyn urement (mass/volume)Ordered By: Mel Maurer on 11-05-2022 Calcium [Mass/Vol] 9.5 mg/dL 8.5-10.1 [facility] Serum or plasma creatinine m easurement (mass/volume)Ordered By: Mel Maurer on 11-05-2022 Creatinine [Mass/Vol] 1.02 mg/dL 0.55-1.02 [facility] Comment on above: The validity of the calculated GFR & GFRAA in patients over 70 years has not been determined. Clinical correlation is essential. Serum or plasma urea nitroge n measurement (mass/volume)Ordered By: Mel Maurer on 11-05-2022 Urea nitrogen [Mass/Vol] 22 mg/dL 7-18 [facility] Thin prep Papanicolaou smear with manual screeningOrdered By: Mel Maurer on 11-05-2022 Thin prep Papanicolaou smear with manual screening 21 U/L 15-37 [facility] Thin prep Papanicolaou smear with manual screening 5 5-15 [facility] Laboratory - Chemistry and C hemistry - challengeOrdered By: Mariposa Parker on 07-16-2022 Free T4 [Mass/Vol] 1.25 ng/dL 0.76-1.46 [facility] No Panel InformationOrdered By: Mariposa Parker on 07-16-2022 Free Triiodothyronine (T3) pg/dL 2.1 pg/mL 2.18-3.98 [facility] Thyroid Stimulating Hormone (TSH) 1.19 uIU/mL 0.358-3.74 [facility] Absolute lymphocyte counton 12-16-2021 Lymphocytes Auto (Unsp spec) [#/Vol] 2.87 10*3/uL 0.83-4.51 [facility] Work Phone: Basophil percentageon 2021 Basophils/100 WBC (Bld) 1.0 % 0-1 [facility] Work Phone: Chloride [Moles/Vol] 101 mmol/L 98-107 [facility] Work Phone: Eosinophils/100 WBC (Bld) 3.2 % 0-5 [facility] Work Phone: Glucose [Mass/Vol] 119 mg/dL 74-106 [facility] Work Phone: Comment on above: Fasting Glucose resu lt from 100 to 125 mg/dL suggests IMPAIRED HOMEOSTASIS per A.D.A. criteria. Neutrophils (Bld) [#/Vol] 4.2 10*3/uL 2.0-7.7 [facility] Work Phone: Neutrophils/100 WBC (Bld) 51.7 % 47-70 [facility] Work Phone: [phone] Potassium [Moles/Vol] 3.6 mmol/L 3.5-5.1 [facility] Work Phone: Sodium [Moles/Vol] 138 mmol/L 136-145 [facility] Work Phone: WBC (Bld) [#/Vol] 8.1 10*3/uL 4.4-11.0 [facility] Work Phone: Blood erythrocytes count (nu mber/volume)on 12-16-2021 RBC (Bld) [#/Vol] 5.24 10*6/uL 4.2-5.4 [facility] Work Phone: Blood hemoglobin measurement (mass/volume)on 12-16-2021 Hemoglobin (Bld) [Mass/Vol] 15.7 g/dL 12.0-15.0 [facility] Work Phone: Blood lymphocytes/100 leukoc yteson 12-16-2021 Lymphocytes/100 WBC (Bld) 35.5 % 19-41 [facility] Work Phone: Blood monocytes/100 leukocyt eson 12-16-2021 Monocytes/100 WBC (Bld) 8.2 % 0-10 [facility] Work Phone: Blood platelet mean volumeon 12-16-2021 Platelet mean volume (Bld) [Entitic vol] 12.5 fL 6.2-12.0 [facility] Work Phone: [phone] Determination of erythrocyte mean corpuscular volume (MCV)on 12-16-2021 MCV (RBC) [Entitic vol] 93.5 fL 81-99 [facility] Work Phone: [phone] Hematocrit Auto (Bld) [Volum e fraction]on 12-16-2021 Hematocrit (Bld) [Volume fraction] 49.0 % 37-47 [facility] Work Phone: [phone] Laboratory - Chemistry and C hemistry - challengeon 12-16-2021 CO2 [Moles/Vol] 30.0 mmol/L 21.0-32.0 [facility] Work Phone: [phone] Urea nitrogen/Creatinine [Mass ratio] 18.5 mg/mg 10-20 [facility] Work Phone: [phone] Laboratory - Hematology and Cell countson 12-16-2021 Erythrocyte distribution width (RBC) [Entitic vol] 45.7 fL 35.1-43.9 [facility] Work Phone: [phone] Erythrocyte distribution width (RBC) [Ratio] 13.2 % 11.6-14.6 [facility] Work Phone: [phone] Immature granulocytes/100 WBC (Bld) 0.400 % 0.0-0.9 [facility] Work Phone: [phone] Comment on above: IG% - Immature Granu locytes (promyelocytes, myelocytes and metamyelocytes) > 1% indicates that a LEFT SHIFT is Present. MCH (RBC) [Entitic mass] 30.0 pg 27.0-32.0 [facility] Work Phone: [phone] Nucleated RBC/100 WBC (Bld) [Ratio] 0 % 0-5 [facility] Work Phone: [phone] MCHC Auto (RBC) [Mass/Vol]on 12-16-2021 MCHC (RBC) [Mass/Vol] 32.0 g/dL 32-36 [facility] Work Phone: No Panel Informationon 12-16 Troponin I High Sensitivity 9 pg/mL 3.0-54.0 [facility] Work Phone: Comment on above: Please Note: New Shannan t Units and Gender Specific Reference Ranges. For more information see Policy Stat Procedure [place] High Sensitivity Troponin (TNIH) and attachments. Estimated Creatinine Clearance Calc 44.22 ml/min [facility] Work Phone: [phone] Estimated GFR (MDRD) Amer 76 mL/min >60 [facility] Work Phone: Comment on above: GFR Calc Estimated GFR (MDRD) Non-Af Amer 63 mL/min >60 [facility] Work Phone: Comment on above: Non- GFR Calc Platelets bldon 12-16-2021 Platelets (Bld) [#/Vol] 199 10*3/uL 150-450 [facility] Work Phone: [phone] Serum or plasma calcium marilyn urement (mass/volume)on 12-16-2021 Calcium [Mass/Vol] 9.6 mg/dL 8.5-10.1 [facility] Work Phone: [phone] Serum or plasma creatinine m easurement (mass/volume)on 12-16-2021 Creatinine [Mass/Vol] 0.92 mg/dL 0.55-1.02 [facility] Work Phone: Comment on above: The validity of the calculated GFR & GFRAA in patients over 70 years has not been determined. Clinical correlation is essential. Serum or plasma urea nitroge n measurement (mass/volume)on 12-16-2021 Urea nitrogen [Mass/Vol] 17 mg/dL 7-18 [facility] Work Phone: [phone] Thin prep Papanicolaou smear with manual screeningon 12-16-2021 Thin prep Papanicolaou smear with manual screening 7 5-15 [facility] Work Phone: [phone] Absolute lymphocyte counton 11-23-2021 Lymphocytes Auto (Unsp spec) [#/Vol] 1.75 10*3/uL 0.83-4.51 [facility] Work Phone: Basophil percentageon 2021 Basophils/100 WBC (Bld) 0.9 % 0-1 [facility] Work Phone: Bilirubin [Mass/Vol] 0.50 mg/dL 0.20-1.00 [facility] Work Phone: Comment on above: For patients on eltr ombopag therapy, use of Dimension [place] TBIL is not recommended. Chloride [Moles/Vol] 101 mmol/L 98-107 [facility] Work Phone: Eosinophils/100 WBC (Bld) 4.4 % 0-5 [facility] Work Phone: Glucose [Mass/Vol] 96 mg/dL 74-106 [facility] Work Phone: Neutrophils (Bld) [#/Vol] 3.9 10*3/uL 2.0-7.7 [facility] Work Phone: Neutrophils/100 WBC (Bld) 60.2 % 47-70 [facility] Work Phone: Potassium [Moles/Vol] 3.8 mmol/L 3.5-5.1 [facility] Work Phone: Protein [Mass/Vol] 8.0 g/dL 6.4-8.2 [facility] Work Phone: Sodium [Moles/Vol] 136 mmol/L 136-145 [facility] Work Phone: WBC (Bld) [#/Vol] 6.5 10*3/uL 4.4-11.0 [facility] Work Phone: Blood erythrocytes count (nu mber/volume)on 11-23-2021 RBC (Bld) [#/Vol] 5.01 10*6/uL 4.2-5.4 [facility] Work Phone: Blood hemoglobin measurement (mass/volume)on 11-23-2021 Hemoglobin (Bld) [Mass/Vol] 15.0 g/dL 12.0-15.0 [facility] Work Phone: Blood lymphocytes/100 leukoc yteson 11-23-2021 Lymphocytes/100 WBC (Bld) 26.8 % 19-41 [facility] Work Phone: Blood monocytes/100 leukocyt eson 11-23-2021 Monocytes/100 WBC (Bld) 7.5 % 0-10 [facility] Work Phone: Blood platelet mean volumeon 11-23-2021 Platelet mean volume (Bld) [Entitic vol] 12.1 fL 6.2-12.0 [facility] Work Phone: Determination of erythrocyte mean corpuscular volume (MCV)on 11-23-2021 MCV (RBC) [Entitic vol] 94.4 fL 81-99 [facility] Work Phone: Hematocrit Auto (Bld) [Volum e fraction]on 11-23-2021 Hematocrit (Bld) [Volume fraction] 47.3 % 37-47 [facility] Work Phone: Laboratory - Chemistry and C hemistry - challengeon 11-23-2021 ALP [Catalytic activity/Vol] 77 U/L 45-117 [facility] Work Phone: ALT [Catalytic activity/Vol] 23 U/L 13-56 [facility] Work Phone: [phone] CO2 [Moles/Vol] 30.0 mmol/L 21.0-32.0 [facility] Work Phone: Globulin (S) [Mass/Vol] 4.0 g/dL 2.2-4.2 [facility] Work Phone: Urea nitrogen/Creatinine [Mass ratio] 20.1 mg/mg 10-20 [facility] Work Phone: Laboratory - Hematology and Cell countson 11-23-2021 Erythrocyte distribution width (RBC) [Entitic vol] 46.2 fL 35.1-43.9 [facility] Work Phone: [phone] Erythrocyte distribution width (RBC) [Ratio] 13.2 % 11.6-14.6 [facility] Work Phone: [phone] Immature granulocytes/100 WBC (Bld) 0.200 % 0.0-0.9 [facility] Work Phone: [phone] Comment on above: IG% - Immature Granu locytes (promyelocytes, myelocytes and metamyelocytes) > 1% indicates that a LEFT SHIFT is Present. MCH (RBC) [Entitic mass] 29.9 pg 27.0-32.0 [facility] Work Phone: [phone] Nucleated RBC/100 WBC (Bld) [Ratio] 0 % 0-5 [facility] Work Phone: [phone] MCHC Auto (RBC) [Mass/Vol]on 11-23-2021 MCHC (RBC) [Mass/Vol] 31.7 g/dL 32-36 [facility] Work Phone: No Panel Informationon 11-23 Estimated GFR (MDRD) Amer 74 mL/min >60 [facility] Work Phone: [phone] Comment on above: GFR Calc Estimated GFR (MDRD) Non-Af Amer 61 mL/min >60 [facility] Work Phone: [phone] Comment on above: Non- GFR Calc Platelets bldon 11-23-2021 Platelets (Bld) [#/Vol] 184 10*3/uL 150-450 [facility] Work Phone: [phone] Serum or plasma albumin marilyn urement (mass/volume)on 11-23-2021 Albumin [Mass/Vol] 4.0 g/dL 3.2-5.0 [facility] Work Phone: [phone] Serum or plasma albumin/glob ulin mass ratioon 11-23-2021 Albumin/Globulin [Mass ratio] 1.0 {ratio} 0.9-2.4 [facility] Work Phone: [phone] Serum or plasma calcium marilyn urement (mass/volume)on 11-23-2021 Calcium [Mass/Vol] 9.4 mg/dL 8.5-10.1 [facility] Work Phone: Serum or plasma creatinine m easurement (mass/volume)on 11-23-2021 Creatinine [Mass/Vol] 0.94 mg/dL 0.55-1.02 [facility] Work Phone: Comment on above: The validity of the calculated GFR & GFRAA in patients over 70 years has not been determined. Clinical correlation is essential. Serum or plasma urea nitroge n measurement (mass/volume)on 11-23-2021 Urea nitrogen [Mass/Vol] 19 mg/dL 7-18 [facility] Work Phone: Thin prep Papanicolaou smear with manual screeningon 11-23-2021 Thin prep Papanicolaou smear with manual screening 24 U/L 15-37 [facility] Work Phone: Thin prep Papanicolaou smear with manual screening 5 5-15 [facility] Work Phone: Vital Signs Date Time Vital Sign Value Performing Clinician Facility 02-10-2025 11:48-0400 Diastolic blood pressure 78 mm[Hg] Dr. Mariposa Parker DO Work Phone: [facility] 02-10-2025 11:48-0400 Systolic blood pressure 136 mm[Hg] Dr. Mariposa Parker DO Work Phone: [facility] 02-10-2025 08:52-0400 Body height 160.[address] Mariposa Parker DO Work Phone: [facility] 02-10-2025 08:52-0400 Body mass index (BMI) [Ratio] 29.9 kg/m2 Dr. Mariposa Parker DO Work Phone: [facility] 02-10-2025 08:52-0400 Body weight 76.[address] Mariposa Parker DO Work Phone: [facility] 02-10-2025 08:52-0400 Heart rate 83 /min Dr. Mariposa Parker DO Work Phone: [facility] 02-10-2025 08:52-0400 Respiratory rate 16 /min Dr. Mariposa Parker DO Work Phone: [facility] 02-10-2025 08:52-0400 SaO2% (BldA) [Mass fraction] 99 % Dr. Mariposa Parker DO Work Phone: [facility] 11-13-2024 15:30-0400 Body height 160.[address] Mariposa Parker DO Work Phone: [facility] 11-13-2024 15:30-0400 Body mass index (BMI) [Ratio] 29.2 kg/m2 Dr. Mariposa Parker DO Work Phone: [facility] 11-13-2024 15:30-0400 Body weight 74.[address] Mariposa Parker DO Work Phone: [facility] 11-13-2024 15:30-0400 Diastolic blood pressure 62 mm[Hg] Dr. Mariposa Parker DO Work Phone: [facility] 11-13-2024 15:30-0400 Heart rate 67 /min Dr. Mariposa Parker DO Work Phone: [facility] 11-13-2024 15:30-0400 Respiratory rate 14 /min Dr. Mariposa Parker DO Work Phone: [facility] 11-13-2024 15:30-0400 SaO2% (BldA) [Mass fraction] 98 % Dr. Mariposa Parker DO Work Phone: [facility] 11-13-2024 15:30-0400 Systolic blood pressure 118 mm[Hg] Dr. Mariposa Parker DO Work Phone: [facility] 07-23-2024 14:17-0400 Body height 160.[address] Mariposa Parker DO Work Phone: [facility] 07-23-2024 14:17-0400 Body mass index (BMI) [Ratio] 29.4 kg/m2 Dr. Mariposa Parker DO Work Phone: [facility] 07-23-2024 14:17-0400 Body weight 75.[address] Mariposa Parker DO Work Phone: [facility] 07-23-2024 14:17-0400 Diastolic blood pressure 74 mm[Hg] Dr. Mariposa Parker DO Work Phone: [facility] 07-23-2024 14:17-0400 Heart rate 80 /min Dr. Mariposa Parker DO Work Phone: [facility] 07-23-2024 14:17-0400 Respiratory rate 16 /min Dr. Mariposa Parker DO Work Phone: [facility] 07-23-2024 14:17-0400 Systolic blood pressure 130 mm[Hg] Dr. Mariposa Parker DO Work Phone: [facility] 06-19-2024 08:07-0500 Body mass index (BMI) [Ratio] 28.5 kg/m2 Dr. Mariposa Parker DO Work Phone: [facility] 06-19-2024 08:07-0500 Body weight 73.[address] Mariposa Parker DO Work Phone: [facility] 06-19-2024 08:07-0500 Diastolic blood pressure 84 mm[Hg] Dr. Mariposa Parker DO Work Phone: [facility] 06-19-2024 08:07-0500 Heart rate 86 /min Dr. Mariposa Parker DO Work Phone: [facility] 06-19-2024 08:07-0500 Respiratory rate 18 /min Dr. Mariposa Parker DO Work Phone: [facility] 06-19-2024 08:07-0500 SaO2% (BldA) [Mass fraction] 97 % Dr. Mariposa Parker DO Work Phone: [facility] 06-19-2024 08:07-0500 Systolic blood pressure 128 mm[Hg] Dr. Mariposa Parker DO Work Phone: [facility] 05-28-2024 12:23-0500 Body temperature 97.3 [degF] Dr. Mariposa Parker DO Work Phone: [facility] 05-28-2024 12:23-0500 Diastolic blood pressure 49 mm[Hg] Dr. Mariposa Parker DO Work Phone: [facility] 05-28-2024 12:23-0500 Heart rate 87 /min Dr. Mariposa Parker DO Work Phone: [facility] 05-28-2024 12:23-0500 Respiratory rate 16 /min Dr. Mariposa Parker DO Work Phone: [facility] 05-28-2024 12:23-0500 SaO2% (BldA) [Mass fraction] 96 % Dr. Mariposa Parker DO Work Phone: [facility] 05-28-2024 12:23-0500 Systolic blood pressure 108 mm[Hg] Dr. Mariposa Parker DO Work Phone: [facility] 05-28-2024 06:56-0500 Inhaled oxygen flow rate 2 L/min Dr. Mariposa Parker DO Work Phone: [facility] 05-28-2024 05:51-0500 Body mass index (BMI) [Ratio] 32.1 kg/m2 Dr. Mariposa Parker DO Work Phone: [facility] 05-28-2024 05:51-0500 Body weight 82.[address] Mariposa Parker DO Work Phone: [facility] 05-26-2024 11:07-0500 Inhaled oxygen concentration 95 % Dr. Mariposa Parker DO Work Phone: [facility] 05-26-2024 03:25-0500 Body height 160.[address] Mariposa Parker DO Work Phone: [facility] 05-08-2024 09:13-0500 Body mass index (BMI) [Ratio] 30.1 kg/m2 Dr. Mariposa Parker DO Work Phone: [facility] 05-08-2024 09:13-0500 Body weight 77.[address] Mariposa Parker DO Work Phone: [facility] 05-08-2024 09:13-0500 Diastolic blood pressure 82 mm[Hg] Dr. Mariposa Parker DO Work Phone: [facility] 05-08-2024 09:13-0500 Heart rate 102 /min Dr. Mariposa Parker DO Work Phone: [facility] 05-08-2024 09:13-0500 Respiratory rate 18 /min Dr. Mariposa Parker DO Work Phone: [facility] 05-08-2024 09:13-0500 SaO2% (BldA) [Mass fraction] 96 % Dr. Mariposa Parker DO Work Phone: [facility] 05-08-2024 09:13-0500 Systolic blood pressure 123 mm[Hg] Dr. Mariposa Parker DO Work Phone: [facility] 04-18-2024 12:00-0500 Body temperature 97.9 [degF] Dr. Mariposa Parker DO Work Phone: [facility] 04-18-2024 12:00-0500 Diastolic blood pressure 77 mm[Hg] Dr. Mariposa Parker DO Work Phone: [facility] 04-18-2024 12:00-0500 Heart rate 94 /min Dr. Mariposa Parker DO Work Phone: [facility] 04-18-2024 12:00-0500 Respiratory rate 17 /min Dr. Mariposa Parker DO Work Phone: [facility] 04-18-2024 12:00-0500 SaO2% (BldA) [Mass fraction] 96 % Dr. Mariposa Parker DO Work Phone: [facility] 04-18-2024 12:00-0500 Systolic blood pressure 92 mm[Hg] Dr. Mariposa Parker DO Work Phone: [facility] 04-18-2024 05:21-0500 Body mass index (BMI) [Ratio] 30.9 kg/m2 Dr. Mariposa Parker DO Work Phone: [facility] 04-18-2024 05:21-0500 Body weight 79.[address] Mariposa Parker DO Work Phone: [facility] 12-16-2021 18:19-0400 Respiratory rate 17 /min [facility] Work Phone: 12-16-2021 18:18-0400 Body temperature 98.2 [degF] [facility] Work Phone: 12-16-2021 18:18-0400 Diastolic blood pressure 75 mm[Hg] [facility] Work Phone: 12-16-2021 18:18-0400 Heart rate 76 /min [facility] Work Phone: 12-16-2021 18:18-0400 Systolic blood pressure 143 mm[Hg] [facility] Work Phone: 12-16-2021 15:24-0400 SaO2% (BldA) [Mass fraction] 98 % [facility] Work Phone: 12-16-2021 12:55-0400 Body height 162.56 cm [facility] Work Phone: 12-16-2021 12:55-0400 Body mass index (BMI) [Ratio] 31.9 kg/m2 [facility] Work Phone: 12-16-2021 12:55-0400 Body weight 84.5 kg [facility] Work Phone: Encounters Encounter Date Encounter Type Care Provider Facility Start: 02-10-2025 End: 02-10-2025 Patient encounter procedure Sofia ALCANTARA -[facility] Work Phone: Start: 02-10-2025 End: 02-10-2025 ambulatory Sofia ALCANTARA Facility:[facility] Start: 11-13-2024 End: 11-13-[address] Mariposa Parker DO Work Phone: -[facility] Start: 11-13-2024 End: 11-13-2024 Patient encounter procedure Sofia ALCANTARA -[facility] Work Phone: Start: 11-04-2024 End: 11-04-[address] Mariposa Parker DO Work Phone: -[facility] Start: 11-04-2024 End: 11-04-2024 Patient encounter procedure Haydee PULIDOC -[facility] Work Phone: Start: 11-04-2024 End: 11-04-2024 ambulatory Haydee Hernandez Facility:[facility] Start: 11-02-2024 End: 11-02-[address] Mraiposa Parker DO Work Phone: -Cardiovascular Services Start: 11-02-2024 End: 11-02-2024 Patient encounter procedure Sofia ALCANTARA -[facility] Work Phone: Start: 11-02-2024 Non-patient / Non-visit [facility]. Jackson [facility] Start: 11-02-2024 End: 11-02-2024 ambulatory Sofia ALCANTARA Facility:[facility] Start: 09-22-2024 End: 09-22-2024 Emergency department patient visit MARIPOSA PARKER [facility] Start: 09-11-2024 End: 09-11-[address] Mariposa Parker DO Work Phone: [facility] Work Phone: Start: 09-11-2024 End: 09-11-2024 Patient encounter procedure Haydee Hernandez NP-C -[facility] Work Phone: Start: 09-11-2024 End: 09-11-2024 ambulatory Haydee Hernandez Facility:[facility] Start: 07-23-2024 End: 07-23-2024 Patient encounter procedure Sofia ALCANTARA -[facility] Work Phone: Start: 07-23-2024 End: 07-23-2024 ambulatory Sofia ALCANTARA Facility:[facility] Start: 07-16-2024 Non-patient / Non-visit [facility] -[facility] Start: 07-16-2024 End: 07-16-[address] Mariposa Parker DO Work Phone: [facility] Work Phone: Start: 07-16-2024 End: 07-16-2024 Patient encounter procedure Sofia ALCANTARA -Cardiovascular Services Work Phone: Start: 07-16-2024 End: 07-16-2024 ambulatory Sofia ALCANTARA Facility:[facility] Start: 07-03-2024 End: 07-03-[address] Mariposa Parker DO Work Phone: [facility] Work Phone: Start: 07-03-2024 End: 07-03-2024 Patient encounter procedure Sofia ALCANTARA -[facility], [place] Work Phone: Start: 07-03-2024 End: 07-03-2024 ambulatory Sofia ALCANTARA Facility:[facility] Start: 06-19-2024 End: 06-19-2024 Patient encounter procedure Sofia ALCANTARA -[facility] Work Phone: Start: 06-19-2024 End: 06-19-2024 ambulatory Sofia ALCANTARA Facility:[facility] Start: 06-17-2024 End: 06-17-[address] Mariposa Parker DO Work Phone: [facility] Work Phone: Start: 06-17-2024 End: 06-17-[address] Mariposa Parker DO -[facility], [place] Work Phone: Start: 06-17-2024 End: 06-17-2024 ambulatory [facility] Facility:[facility] Start: 05-28-2024 Non-patient / Non-visit Dr. Christian ortiz MD -[facility] Work Phone: Start: 05-27-2024 ambulatory [facility] Facility:[facility] Start: 05-27-2024 Non-patient / Non-visit Dr. Christian ortiz MD -[facility] Work Phone: Start: 05-26-2024 Non-patient / Non-visit Dr. Meredith Mcgee MD -[facility] Work Phone: Start: 05-26-[facility] Start: 05-26-2024 ambulatory Christian Blevins Facility:[facility] Start: 05-26-2024 End: 05-28-2024 Evaluation and management of inpatient Dr. Christian Blevins MD -Medical Surgical 2 Work Phone: Start: 05-18-2024 End: 05-18-[address] Mel Maurer MD -[facility], [place] Work Phone: Start: 05-18-2024 End: 05-18-2024 ambulatory [facility] Facility:[facility] Start: 05-08-2024 End: 05-08-2024 Patient encounter procedure Sofia ALCANTARA -[facility] Work Phone: Start: 05-08-2024 End: 05-08-2024 ambulatory Sofia ALCANTARA Facility:[facility] Start: 05-08-2024 End: 05-08-2024 ambulatory Sofia ALCANTARA Facility:[facility] Start: 04-18-2024 Non-patient / Non-visit Dr. Saulo Handy DO -[facility] Work Phone: Start: 04-18-2024 Non-patient / Non-visit [facility] Start: 04-17-2024 Non-patient / Non-visit Dr. Saulo Handy DO -[facility] Work Phone: Start: 04-17-2024 ambulatory Mariposa Parker Facility:[facility] Start: 04-17-2024 Non-patient / Non-visit Dr. Cedeno [facility] Start: 04-16-2024 ambulatory Christian White Facili ty:[facility] Start: 04-16-2024 End: 04-18-2024 Evaluation and management of inpatient Dr. Saulo Chávez DO -Progressive Care Unit Work Phone: Start: 04-07-2024 End: 04-07-2024 Patient encounter procedure Haydee Hernandez MALLET CUTTER-C -Radiology, [place] Work Phone: Start: 04-07-2024 End: 04-07-2024 ambulatory Haydee Hernandez Facility:[facility] Start: 08-05-2023 End: 08-05-2023 ambulatory [facility] Work Phone: Start: 08-05-2023 End: 08-05-2023 Patient encounter procedure [facility]-Radiology, [facility] Work Phone: Start: 08-01-2023 End: 08-01-2023 ambulatory [facility] Work Phone: Start: 08-01-2023 End: 08-01-2023 Patient encounter procedure [facility]-Pulmonary Services/Neurology Work Phone: Start: 07-24-2023 End: 07-24-2023 ambulatory [facility] Work Phone: Start: 07-24-2023 End: 07-24-2023 Patient encounter procedure [facility] Start: 04-29-2023 End: 04-29-2023 ambulatory [facility] Work Phone: Start: 04-29-2023 End: 04-29-2023 Patient encounter procedure [facility] Start: 03-15-2023 End: 03-15-2023 ambulatory [facility] Work Phone: Start: 03-15-2023 End: 03-15-2023 Patient encounter procedure [facility]-Outpatient Breast Imaging Work Phone: Start: 03-11-2023 End: 03-11-2023 ambulatory [facility] Work Phone: Start: 03-11-2023 End: 03-11-[address] [facility] Work [facility] Start: 11-05-2022 End: 11-05-2022 ambulatory [facility] Work Phone: Start: 11-05-2022 End: 11-05-2022 Patient encounter procedure [facility] Work Phone: Start: 07-16-2022 End: 07-16-2022 Patient encounter procedure [facility] Start: 12-16-2021 End: 12-16-2021 Emergency department patient visit [facility]-Emergency Department Start: 11-23-2021 End: 11-23-2021 Patient encounter procedure [facility] Procedures Date Procedure Procedure Detail Performing Clinician Start: 11-04-2024 MRI of joint of lowe r extremity Dr. Mariposa Parker DO Work Phone: Start: 05-28-[address] Mariposa Parker DO Work Phone: Start: 05-28-2024 Measurement of renal function Dr. Mariposa Parker DO Work Phone: Comment on above: GFR Calc Start: 05-27-2024 Assay of phosphorus inorganic Dr. Mariposa Parker DO Work Phone: Start: 05-26-[address] Mariposa Parker DO Work Phone: Start: 05-26-2024 Plain chest X-ray Dr. Claude Parker DO Work Phone: Start: 05-25-2024 SARS-CoV-2, Influenz a & RSV (PCR) Dr. Mariposa Parker DO Work Phone: Start: 04-16-2024 X-ray of chest, PA a nd lateral views Dr. Mariposa Parker DO Work Phone: Start: 04-07-2024 X-ray of chest, PA a nd lateral views Dr. Mariposa Parker DO Work Phone: Start: 08-05-2023 Plain chest X-ray Start: 03-15-2023 Screening mammography Start: 03-11-2023 Urine culture Start: 12-16-2021 Plain chest X-ray Plan of Treatment Date Care Activity Detail Author Start: 05-28-2024 Patient discharge [facility] Start: 05-27-2024 Respiratory secretion precautions [facility] Start: 05-26-2024 Following clinical pathway protocol [facility] Start: 05-26-2024 Assessment of risk of venous thromboembolism [facility] Start: 05-26-2024 Fall prevention [facility] Start: 05-26-2024 Incentive spirometry [facility] Start: 05-26-2024 Inhalation therapy procedure [facility] Start: 05-26-2024 Insertion of catheter into peripheral vein [facility] Start: 05-26-2024 Introduction of urinary catheter [facility] Start: 05-26-2024 Measuring intake and output [facility] Start: 05-26-2024 Oxygen therapy [facility] Start: 05-26-2024 Providing care according to standard [facility] Start: 05-26-2024 Provision of activity privileges [facility] Start: 05-26-2024 Referral to occupational therapist [facility] Start: 05-26-2024 Referral to service [facility] Start: 05-26-2024 [facility] Start: 05-26-2024 Admission procedure [facility] Start: 05-26-2024 [facility] Start: 04-18-2024 Patient discharge [facility] Start: 04-16-2024 Following clinical pathway protocol [facility] Start: 04-16-2024 Assessment of risk of venous thromboembolism [facility] Start: 04-16-2024 Catheterization of vein [facility] Start: 04-16-2024 Fluid restriction [facility] Start: 04-16-2024 Insertion of catheter into peripheral vein [facility] Start: 04-16-2024 Measuring intake and output [facility] Start: 04-16-2024 Oxygen therapy [facility] Start: 04-16-2024 Providing care according to standard [facility] Start: 04-16-2024 Provision of activity privileges [facility] Start: 04-16-2024 Referral to survey research teacher [facility] Start: 04-16-2024 Referral to service [facility] Start: 04-16-2024 [facility] Start: 04-16-2024 Admission procedure [facility] Start: 04-16-2024 Hospital admission, emergency, from emergency room, medical nature [facility] Start: 04-16-2024 Patient referral to dietitian [facility] Start: 03-15-2023 MG Breast - bilateral Screening [facility] Start: 03-15-2023 Screening mammography SCRN MAMM (CAD)W/BHARATHI BILAT [facility] Start: 12-16-2021 [facility] Work Phone: Basic metabolic 2008 panel with ionized calcium - Serum or Plasma [facility] Patient Education ED Chest Pain, Uncertain Cause [facility] Work Phone: Patient referral [facility] Work Phone: US Heart [facility] US Heart limited [facility] Immunizations Immunization Date Immunization Notes Care Provider Fa cility 02-20-2024 RSV Adult Recombinan t (Arexvy) Dr. Mariposa Parker DO Work Phone: [facility] 01-31-2023 influenza, injectabl e, quadrivalent, preservative free Dr. Mariposa Parker DO Work Phone: [facility] 01-11-2022 influenza, injectabl e, quadrivalent, preservative free Dr. Mariposa Parker DO Work Phone: [facility] 09-15-2020 Covid (Ciera) Dr. Mariposa cowan DO Work Phone: [facility] 08-11-2020 Covid (Ciera) Dr. Mariposa cowan DO Work Phone: [facility] Payers Date Payer Category Payer Self-pay [id number] 2024 Medicare [id number] 2016 Unknown [id number] 2009 Medicare MEDICARE PART A B [id number] 1945 Unknown [id number] . [id number] Unknown [facility] [id number] Unknown [id number] 2.16.8 [id number] Unknown [id number] 2.16.8 40.1.043661.3.579.2.462 Unknown [id number] 2.16.8 40.1.260905.3.579.2.462 Unknown [id number] 2.16.8 40.1.596942.3.579.2.462 Unknown [id number] 2.16.8 40.1.735398.3.579.2.462 Unknown [id number] 2.16.8 40.1.923968.3.579.2.462 Unknown [id number] 2.16.8 40.1.795065.3.579.2.462 Unknown [id number] 2.16.8 40.1.932262.3.579.2.462 Unknown [id number] 2.16.8 40.1.727513.3.579.2.462 Unknown [id number] 2.16.8 40.1.631810.3.579.2.462 Unknown [id number] 2.16.8 40.1.422853.3.579.2.462 Unknown [id number] 2.16.8 40.1.861700.3.579.2.462 Unknown [id number] 2.16.8 40.1.956198.3.579.2.462 Unknown [id number] 2.16.8 40.1.855702.3.579.2.462 Unknown [id number] 2.16.8 40.1.524509.3.579.2.462 Unknown [id number] 2.16.8 40.1.979939.3.579.2.462 Unknown [id number] 2.16.8 40.1.438358.3.579.2.462 Unknown [id number] 2.16.8 40.1.857772.3.579.2.462 Unknown [id number] 2.16.8 40.1.410151.3.579.2.462 Unknown [id number] 2.16.8 40.1.179327.3.579.2.462 Unknown [id number] 2.16.8 40.1.031489.3.579.2.462 Unknown [id number] 2.16.8 40.1.613207.3.579.2.462 Unknown [id number] 2.16.8 40.1.948369.3.579.2.462 Unknown [id number] 2.16.8 40.1.997151.3.579.2.462 Unknown [id number] 2.16.8 40.1.616449.3.579.2.462 Unknown [id number] 2.16.8 40.1.846656.3.579.2.462 Unknown [id number] 2.16.8 40.1.232178.3.579.2.462 Social History Date Type Detail Facility Start: 12-16-2021 End: 12-16-2021 Tobacco smoking status NHIS Unknown if ever smoked [facility] Start: 1945 Sex Assigned At Female [facility] Start: 05-26-2024 End: 05-26-2024 Tobacco smoking status NHIS Never smoked tobacco (finding) [facility] Start: 07-01-2024 End: 07-21-2024 Sex Female (finding) [facility] Sex Female [facility] Goals Date Patient Goal Desired Activity /State Functional Status Date Assessment Result Facility 05-28-2024 Functional status Bathroom Privilege [facility] Work Phone: 04-18-2024 Functional status Activity Ability Indepe ndent [facility] Work Phone: Mental Status Date Assessment Result Facility 05-27-2024 Cognitive function Voice/Name [facility] Work Phone: 04-18-2024 Cognitive function Voice/Name [facility] Work Phone: 12-16-2021 Cognitive function Voice/Name [facility] Work Phone: Clinical Notes 04-17-2024 to 02-10-2025 Note Date & Type Note Facility 02-10-2025 Progress note [facility] 11-13-2024 Evaluation note Diagnosis Onset Date Resolution Cardiomyopathy acute November 13, 2024 3:17pm Essential hypertension acute Ju ly 2024 3:17pm Cardiomyopathy acute February 102024 11:21am Essential hypertension acute Oc tober 2024 11:21am [facility] Work Phone: 1(729) 402-332904-03-2025 Evaluation note* Diagnosis Onset Date Resolution Status Admit Date Cardiomyopathy acute July 23, 2024 2:16pm Essential hypertension acute Ap ril 2024 2:16pm [facility] Work Phone: 1(844) 662-523204-03-2025 Evaluation note* Diagnosis Onset Date Resolution Status Admit Date Cardiomyopathy acute July 23, 2024 2:16pm Essential hypertension acute Ap ril 2024 2:16pm Cardiomyopathy acute November 13, 2024 3:17pm Essential hypertension acute 2024 3:17pm [facility][1] Services Work Phone: 1(113) 583-795502-06-2025 [facility] Medical Records Department [address] [place] [address] Discharge Summary 05/28/24 1026 MR#: [id number] Acct: [id number] Name: BARBARA HOLDER Rep #: [id number] : 1945 79 From: Christian Blevins MD PCP: Dr. Mariposa Parker DO Status:ADM IN Location: [place] [address] Providers Date of Admission: 05/26/24 Primary Care Physician: Dr. Mariposa Parker, DO Reason For Visit: HYPOXIA INFLUENZA A Diagnosis Discharge Diagnosis (1) Hypoxia: Status: Acute Code(s): R09.02 - Hypoxemia (2) Influenza A: Status: Acute Code(s): J10.1 - Influenza due to other identified influenza virus with other respiratory manifestations Plan Patient is an 79-year-old female who presented to the emergency department with shortness of breath cough congestion and fever over days duration. Tested positive for acute influenza A admitted to regular nursing floor for subsequent management 1. Acute hypoxia ??? Secondary to acute influenza A infection. Admitted to regular nursing floor placed on supplemental oxygen titrated to keep saturation greater than 90 patient was also placed on Tamiflu ??? 04/26/2024 patient remains on supplemental oxygen currently 4 L at rest 2. Hypokalemia -Corrected per protocol 3. Mild thrombocytopenia ??? Will monitor with daily CBC with differential 4. Hypertension ??? Blood pressure controlled, home medications continued with dose adjustment as needed 5. Assessment hypothyroidism 6. Chronic congestive heart failure with reduced ejection fraction ??? Echo from 04/16/2024 demonstrated LVEF of 10% complicating care. Patient remains compensated we will continue with patient treatment regimen from home 7. Rheumatoid arthritis ??? Patient is on Plaquenil 8. Class I obesity with BMI of 31 ??? Complicating care weight loss advised 9. Chronic kidney disease stage III ruled out 10. Gout ??? Patient is on allopurinol 11. DVT prophylaxis ??? SC Lovenox 12. Physical deconditioning ??? Requested for PT OT eval and marriage and family social worker to assist with discharge planning Time spent in the patient's overall evaluation,decision-making process, review of diagnostic data, adjustment of management, discussion with other providers, nursing nursing and ancillary staff involved in patient's care documentation, 40 minutes Medications at Discharge Home Medications gabapentin 100 mg capsule 100 mg PO BID nerve pain 04/30/15 allopurinol 100 mg tablet 200 mg PO DAILY gout 10/18/20 acetaminophen 500 mg tablet 500 mg PO Q6H PRN Pain 10/20/20 albuterol sulfate 90 mcg/actuation aerosol inhaler 1 puff inhalation Q4H PRN shortness of breath or wheezing 04/16/24 calcium 600 mg (as carbonate)-vit D3 20 mcg (800 unit) chewable tablet (Caltrate plus D) 1 tab PO DAILY supplement 04/16/24 hydroxychloroquine 200 mg tablet (Plaquenil) 200 mg PO BID 04/16/24 mometasone-formoterol HFA 100 mcg-5 mcg/actuation aerosol inhaler (Dulera) 2 puff inhalation BID breathing 04/16/24 ondansetron 4 mg disintegrating tablet 4 - 8 mg PO Q6H PRN PRN nausea 04/16/24 levothyroxine 125 mcg tablet 125 mcg PO DAILY@0600 #30 tabs 04/18/24 aspirin 81 mg tablet,delayed release (Adult Low Dose Aspirin) 81 mg PO QDAY 05/08/24 carvedilol 6.25 mg tablet 6.25 mg PO BID #60 tabs 05/08/24 furosemide 40 mg tablet 40 mg PO DAILY #90 tabs 05/08/24 spironolactone 25 mg tablet 25 mg PO DAILY #90 tabs 05/08/24 azithromycin 250 mg tablet 250 mg PO DAILY 05/26/24 hydroxyzine HCl 10 mg tablet 10 - 20 mg PO QHS 05/26/24 potassium chloride 20 mEq tablet,extended release(part/cryst) 20 meq PO DAILY 05/26/24 triamterene 37.5 mg-hydrochlorothiazide 25 mg tablet 1 tab PO DAILY 05/26/24 guaifenesin 600 mg tablet, extended release 12 hr (Mucinex) 1,200 mg (2 x 600 mg) PO BID #20 tabs 05/28/24 oseltamivir 30 mg capsule 30 mg PO BID #6 caps 05/28/24 prednisone 20 mg tablet 20 mg PO BID #10 tabs 05/28/24 Physical Exam Narrative GENERAL: cooperative HEENT: Atraumatic; normocephalic EYES; Anicteric, Normal Conjunctiva NECK; supple, normal thyroid, RESPIRATORY: Diminished to auscultation CARDIOVASCULAR: Regular S1 S2, GI: soft, normoactive bowel sounds, : No Renal angle tenderness; EXTREMITIES: No edema, no clubbing, MUSCULOSKELETAL: no muscle wasting NEURO: Awake; no lateralizing signs. SKIN: No Rash PSYCH; Flat affect Weight / BMI Weight Weight: 82.3 kg Body Mass Index (BMI) 32.1 ABG / Lab / Microbiology Data 05/28/24 04:24 05/28/24 04:24 Laboratory: Laboratory Results - last 24 hr 05/28/24 04:24: WBC 9.4, RBC 4.51, Hgb 13.2, Hct 40.9, MCV 90.7, MCH 29.3, MCHC 32.3, RDW Std Deviation 47.7 H, RDW Coeff of Jonnathan 14.2, Plt Count 126 L, MPV 13.4 H, Immature Gran % (Auto) 0.700, Neut % (Auto) 91.0 H, Lymph % (Auto) 4.8 L, Falls % (Auto) 3.4, Eos % (Auto) 0.0, Baso % (Auto) 0.1, Abs (more content not included)...[facility]02-04-2025 Evaluation note* Diagnosis Onset Date Resolution Status Admit Date CHF (congestive heart failure), NYHA class III acute Februar y 2024 1:59am Essential hypertension acute Fe bruary 2024 1:59am Hypothyroidism acute May 262024 1:59am Hypoxia resolved May 26, 2024 1:59am Influenza A resolved May 26, 2024 1:59am Cardiomyopathy acute May 242024 11:19am CHF (congestive heart failure), NYHA class III acute Februar y 2024 11:19am Essential hypertension acute Fe bruary 2024 11:19am Cardiomyopathy acute July 23, 2024 2:16pm Essential hypertension acute Ap ril 2024 2:16pm [facility] Work Phone: 1(645) 802-997612-28-2024 [facility] Medical Records Department [address] [place] [address] Discharge Summary 04/18/24 1113 MR#: [id number] Acct: [id number] Name: BARBARA HOLDER Rep #: [id number] : 1945 79 From: Saulo Chávez DO PCP: Dr. Mariposa Parker DO Status:DIS IN Location: [place] [id number] Providers Date of Admission: 04/16/24 Date of Discharge: 04/18/24 Primary Care Physician: Dr. Mariposa Parker DO Consultations 04/16/24 23:34 Consult: Cardiology Routine Consulting Provider: Wilian Yang Reason for Consult: AE CHF; apparently new-onset. EMERGENT Consult: No MD Notified: Yes Date Notified: 04/16/24 Time Notified: 23:10 Method of Notification: ED Physician Initiated Reason For Visit: AE CHF; APPARENTLY NEW-ONSET Diagnosis Discharge Diagnosis (1) CHF (congestive heart failure), NYHA class III: Status: Acute Code(s): I50.9 - Heart failure, unspecified Plan 1. Acute systolic congestive heart failure-patient was started on Entresto, carvedilol, and kept on oral Lasix, she will be reevaluated tomorrow, patient is not on any oxygen currently. #2 cardiomyopathy-etiology unclear, favor viral etiology-patient will need follow-up with cardiology, I talked with her PCP by phone today to let her know the patient's diagnosis and treatment plan. #3 hypothyroidism-patient's T4 is normal but her T3 is low. This could be secondary to chronic disease or could be hypothyroidism. I have elected to increase her Synthroid to 125 mcg daily. #4 chronic obstructive pulmonary disease-patient will resume her inhaler when she is discharged from the hospital #5 essential hypertension-patient's blood pressure medicines will need to be adjusted due to her congestive heart failure Total clinical time spent by myself addressing the patient's medical issues, reviewing all of her data, and collaborating with patient's care team: 50 minutes Medications at Discharge Home Medications gabapentin 100 mg capsule 100 mg PO BID nerve pain 04/30/15 allopurinol 100 mg tablet 200 mg PO DAILY gout 10/18/20 levothyroxine 100 mcg tablet 100 mcg PO DAILY thyroid 10/18/20 acetaminophen 500 mg tablet 500 mg PO Q6H PRN Pain 10/20/20 albuterol sulfate 90 mcg/actuation aerosol inhaler 1 puff inhalation PRN shortness of breath or wheezing 04/16/24 calcium 600 mg (as carbonate)-vit D3 20 mcg (800 unit) chewable tablet (Caltrate plus D) 1 tab PO DAILY supplement 04/16/24 hydroxychloroquine 200 mg tablet (Plaquenil) 200 mg PO BID 04/16/24 mometasone-formoterol HFA 100 mcg-5 mcg/actuation aerosol inhaler (Dulera) 2 puff inhalation BID breathing 04/16/24 ondansetron 4 mg disintegrating tablet 4 - 8 mg PO Q6H PRN PRN nausea 04/16/24 carvedilol 3.125 mg tablet 3.125 mg PO BID #60 tabs 04/18/24 furosemide 40 mg tablet 40 mg PO DAILY #30 tabs 04/18/24 levothyroxine 125 mcg tablet 125 mcg PO DAILY@0600 #30 tabs 04/18/24 potassium chloride 20 mEq tablet,extended release(part/cryst) 20 meq PO DAILY #30 tabs 04/18/24 Hospital Course Operations None Procedures 2-D Echocardiogram Summary of Care Provided Minutes Spent on Discharge: 32 Hospital Course: This 79-year-old white female was seen in the emergency room at [facility] with complaints of lower extremity edema. Patient also complained of dyspnea with exertion which had worsened over the past several months. Patient was referred to pulmonary medicine as an outpatient for consultation due to abnormal pulmonary function tests in the past. Workup in the emergency room showed a normal white blood cell count, hemoglobin was 13.5, chemistry profile was remarkable for glucose of 142, patient's beta natruretic peptide was elevated at 899. Troponin was unremarkable. Chest x-ray showed increased interstitial markings which could represent edema and/or infection, there was also chronic interstitial lung changes. EKG showed a sinus tachycardia and a left anterior fascicular block. Patient did not require supplemental oxygen. Patient was admitted to PCU for acute congestive heart failure, she was treated with IV furosemide and she was seen in consultation by cardiology and underwent an echocardiogram which showed a severely decreased ejection fraction of 10%. There was noted to be global hypokinesia. Cardiology recommended medications, patient did not tolerate Entresto due to hypotension however. On 04/18/2024, patient was seen and examined: On examination she appeared in good health and spirits, she does not appear to be in any distress. Vital signs as documented. Skin warm and dry and without overt rashes. Neck without JVD, thyroid appears normal, trachea is midline, neck is supple. Lungs clear, normal air movement was noted. Heart exam notable for regular rhythm, normal sounds and absence of murmurs, rubs or gallops. Abdomen unremarkable and without evidence of organomegal (more content not included)...[facility]12-27-2024 Evaluation note* Diagnosis Onset Date Resolution Status Admit Date CHF (congestive heart failure), NYHA class III acute Decembe r 2023 11:04pm Essential hypertension acute De cember 2023 11:04pm Hypothyroidism acute March 232023 11:04pm Acute respiratory insufficiency inactive April 16 11:04pm New onset of congestive hear t failure inactive April 16 11:04pm Obesity (BMI 30.0-34.9) inactive D ecember 2023 11:04pm Type 2 diabetes mellitus inactive April 16, 2024 11:04pm Cardiomyopathy acute May 082024 9:12am CHF (congestive heart failure), NYHA class III acute May 08, 2024 9:12am Essential hypertension acute nu2024 9:12am CHF (congestive heart failure), NYHA class III acute 2024 1:59am Essential hypertension acute Fe ary 2024 1:59am Hypothyroidism acute May 262024 1:59am Hypoxia resolved May 26, 2024 1:59am Influenza A resolved May 26, 2024 1:59am Cardiomyopathy acute May 242024 11:19am CHF (congestive heart failure), NYHA class III acute uar y 2024 11:19am Essential hypertension acute Fe bruary 2024 11:19am [facility] Work Phone: Evaluation noteNo assessment information available [facility] Work Phone: Progress note Author Sofia [facility][1] Services Note Date/Time February 10, 2025 1 2:51pm [facility] 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 Coronary angiography done in 2020 demonstrated demonstrated normal coronary arteries. So this was felt to be viral. Medical therapy was optimized, and subsequent echocardiograms showed improvement in EF to 20% in 06/2024 and to 40% in 10/2024. She denies chest pain, dyspnea, palpitations, lightheadedness, dizziness, or syncope. She reports her energy level is unchanged. Home blood pressure readingshave recently been elevated, around 140 mmHg systolic over the past few days, compared to her usual range of 115?120 mmHg systolic. She attributes this changeto the weather. She remains active, attending her great-grandchildren?s games and recently traveled to [place] to visit her son. Current medications include Farxiga, Coreg, and spironolactone. 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: No Accompanied by: Self Is patient in pain?: No Allergies amoxicillin Adverse Reaction (Verified 02/10/25 11:31) GI upset, Nausea and vomiting Medications ?Medication ?Instructions ?Recorded ?Confirmed ?Type gabapentin 100 mg capsule 100 mg PO BID nerve pain 01/0502/10/25 History acetaminophen 500 mg tablet 500 mg PO Q6H PRN Pain 05/1202/10/25 History albuterol sulfate 90 mcg/actuation 1 puff inhalation Q 4H PRN 04/16/24 02/10/25 History aerosol inhaler shortness of breath or wheez ing calcium 600 mg (as carbonate)-vit 1 tab PO DAILY suppl ement 04/16/24 02/10/25 History D3 20 mcg (800 unit) chewable tablet (Caltrate plus D) hydroxychloroquine 200 mg tablet 200 mg PO BID 4 02/10/25 History (Plaquenil) aspirin 81 mg tablet,delayed 81 mg PO QDAY 05/08/24 History release (Adult Low Dose Aspirin) allopurinol 100 mg tablet 100 mg PO BID gout 07/23/24 02/10/25 History fluticasone fur. 200 mcg-umeclid 1 inh inhalation Q24H 07/23/24 02/10/25 History 62.5 mcg-vilant 25 mcg inhalat.powder (Trelegy Ellipta) dapagliflozin propanediol 10 mg 10 mg PO QAM #90 tabs 10/16/24 02/10/25 Rx tablet (Farxiga) levothyroxine 112 mcg tablet 112 mcg PO QDAY 11/13/24 02/10/25 History sacubitril 49 mg-valsartan 51 mg 1 tab PO BID #180 tab s 11/16/24 02/10/25 Rx tablet (Entresto) carvedilol 6.25 mg tablet 6.25 mg PO BID #180 tabs 02/10/25 Rx spironolactone 25 mg tablet 25 mg PO DAILY #90 tabs 02/10/25 Rx Ejection fraction %: 40 Have you fallen in the past year?: Yes PFSH Medical History Cardiomyopathy Obesity (BMI 30.0-34.9) New onset of congestive heart failure Acute respiratory insufficiency Polymyalgia rheumatica Dyspnea on exertion Rheumatoid arthritis Gout Hypothyroidism Essential hypertension Type 2 diabetes mellitus Surgical History History of left heart catheterization (LHC) (~11/15/20) H/O right knee surgery History of carpal tunnel surgery History of hysterectomy History of appendectomy Family History Mother History of DVT (deep vein thrombosis) Hypertension Father Cancer Lung Sister CAD (coronary artery disease) History of coronary artery bypass surgery Social History household members: none Smoking Status: Never smoker alcohol intake: current details: occasional substance use type: does not use caffeine: Yes Type: coffee Number of servings: 3 and tea ROS Const Const: Negative for fatigue, weakness or headache(s) Eyes Eyes: Negative for change in vision ENT ENT: Negative for headache(s), dizziness, Nosebleed/epistaxis or balance problems Cardio Chest Pain: No Palpitations: No Edema: None Muscle aches with walking: None Resp Respiratory: Negative for SOB with activity GI GI: Negative nausea, vomiting, heartburn or bright, red blood in stools : Negative for hematuria Musc Musc: Negative for balance problems Neuro Neuro: Negative for dizziness, lightheadedness, syncope, headache(s) or weakness Endo Endo: Negative for fatigue Cardiology Exam Const Appearance: cooperative, no acute distress and well developed Orientation: alert, awake and oriented x3 Head Head: normocephalic and atraumatic Mouth: moist mucous membranes Eyes General: appearance normal, both eyes and all related structures Conjunctivae: conjunctivae normal Pupils: PERRL EOM: EOM intact bilaterally Neck Neck: normal visual inspection, no lymphadenopathy and no JVD Carotids: Negative bruit Neck Mass: Negative Neck mass Chest Chest inspection: normal inspection of the chest and symmetric chest movement Auscultation: Bilateral: Clear to Auscultation Cardio Palpation: normal PMI Rate: regular rate Rhythm: regular rhythm Heart sounds: S1 normal and S2 normal; Negative rub, gallop or murmur GI GI: normal to inspection, soft, no hepatosplenomegaly and bowel sounds present; Negative tender Neuro General: patient alert, patient awake, patient oriented x3, CN's II-XI intact bilaterally and moves all extremities Extremities Pulses: Normal: Right Posterior Tibial Pulse, Left Posterior Tibial Pulse, RightRadial Pulse and Left Radial Pulse Lower Extremity Edema: None: Bilateral Psych Psychological: normal affect Supplemental Info Supplemental Information Echo Limited w/Contrast 10/2024 Interpretation Summary Normal LV size. The left ventricular ejection fraction is 40 %. There is mild to moderate global hypokinesis of the left ventricle. Stage 1 diastolic dysfunction. Contrast injection was performed. Echocardiogram 06/2024: Moderately dilated left ventricle. The left ventricular ejection fraction is 20 %. There is severe global hypokinesis of the left ventricle. Stage 1 diastolic dysfunction. Contrast injection was performed. Compared to previous study, the left ventricular systolic function has improved.. Echo Complete W/ Contrast 03/2024: Interpretation Summary The left ventricular ejection fraction is 10 %. Moderately dilated left ventricle. Mild (1+) eccentric mitral valve insufficiency. Stage 2 diastolic dysfunction. Cardiac cath 2020: Elevated Left Ventricular End Diastolic Pressure (mild) Normal LV size, wall motion,and systolic function LVEF: by LV gram 55 % Normal coronary arteries RECOMMENDATIONS Risk factor modification Medical therapy CORONARY ANGIOGRAPHY DOMINANCE: Co- Dominant LEFT HEART ASSESSMENT Left Ventricular Ejection Fraction: by LV Gram 55 % Normal LV wall motion Elevated Left Ventricular End Diastolic Pressure LVEDP: 13 mmHg LEFT MAIN: Angiographically normal LEFT ANTERIOR DESCENDING ARTERY: Angiographically normal CIRCUMFLEX ARTERY: Angiographically normal RIGHT CORONARY ARTERY: Angiographically normal AORTIC ROOT: Angiographically normal Assessment and Plan Assessment and Plan (1) Cardiomyopathy: Status: Acute (2) Essential hypertension: Status: Acute Medications: Refilled carvedilol 6.25 mg PO BID 180 tabs 3RF spironolactone 25 mg PO DAILY 90 tabs 3RF Plan # Dilated cardiomyopathy (I42.0): - Ejection fraction improved from 10% (March 2024) to 40% (October 2024), currently stable with no chest pain, dyspnea, or palpitations. - Continuing current regimen without changes. - Refills sent to [facility] for carvedilol (Coreg) 90-day supply and spironolactone 90-day supply; patient requested mail-order for cost efficiency. - No repeat echocardiogram indicated until next year; patient instructed to return sooner for any concerning symptoms. # Hypertensive heart disease with heart failure (I11.0): - Recent blood pressure readings elevated up to 140 mmHg systolic at home; clinic measurement 136/78 mmHg. - Remains stable without medication change. - See ?Dilated cardiomyopathy? above for shared treatment/management plan. - Return as needed for concerns; next routine follow-up scheduled next year. Plan Details Follow Up: 02/10/25 (keep as is with TIME ANALYSIS CLERK) Coding Level of Care Code Off vis,est,level 4 Diagnoses Cardiomyopathy I42.9 Essential hypertension I10 Coding Level of Care Code Off vis,est,level 4 Diagnoses Cardiomyopathy I42.9 Essential hypertension I10 Clinical Quality Measures Falls Risk Screening/Assistive Devices Have you fallen in the past year?: Yes Cardiac Ejection fraction %: 40 02/10/25 1218 <Electronically signed by Sofia Graves> Date _ Sofia ALCANTARA Cosigner Signature: Date (if applicable) CC: ~ [facility] Work Phone: Reason for referral (narrative)No reason for referral information availableWOhio State [facility] Work Phone: Chief Complaint and Reason for Visit Chief Complaint PAIN- COPY PCP CP Chief Complaint SCREENING Chief Complaint DYSPNEA Chief Complaint Admit Date SHORTNESS OF BREATH April 07, 2024 11:07am AE CHF; APPARENTLY NEW-ONSET April 162023 11:04pm AE CHF; APPARENTLY NEW-ONSET April 172023 3:46pm AE CHF; APPARENTLY NEW-ONSET April 182023 9:17am AE CHF; APPARENTLY NEW-ONSET April 182023 11:13am S/P [facility] 04/18May 08, 2024 9 :12am INT LABS May 08, 2024 9 :55am PAIN- COPY PCP May 18, 2024 9 :51am HYPOXIA INFLUENZA A May 26, 2024 1 :59am HYPOXIA INFLUENZA A May 26, 2024 3 :09am HYPOXIA INFLUENZA A May 27, 2024 7 :33am HYPOXIA INFLUENZA A May 28, 2024 1 0:26am SOB/CP June 19, 2024 11:19am Reason for Visit Admit Date CHF (congestive heart failure), NYHA cla ss III April 16, 2024 11:04pm Essential hypertension April 16 11:04pm Hypothyroidism April 16, 2024 11:04pm Acute respiratory insufficiency April 16, 2024 11:04pm New onset of congestive heart failure De cember 2023 11:04pm Obesity (BMI 30.0-34.9) April 16, 024 11:04pm Type 2 diabetes mellitus April 16, 2024 11:04pm Cardiomyopathy May 08, 2024 9 :12am CHF (congestive heart failure), NYHA cla ss III May 08, 2024 9:12am Essential hypertension May 08 9:12am CHF (congestive heart failure), NYHA cla ss III May 26, 2024 1:59am Essential hypertension May 26 1:59am Hypothyroidism May 26, 2024 1 :59am Hypoxia May 26, 2024 1 :59am Influenza A May 26, 2024 1 :59am Cardiomyopathy June 19, 2024 11:19am CHF (congestive heart failure), NYHA cla ss III June 19, 2024 11:19am Essential hypertension June 19 11:19am Chief Complaint Admit Date SHORTNESS OF BREATH April 07, 2024 11:07am AE CHF; APPARENTLY NEW-ONSET April 162023 11:04pm AE CHF; APPARENTLY NEW-ONSET April 172023 3:46pm AE CHF; APPARENTLY NEW-ONSET April 182023 9:17am AE CHF; APPARENTLY NEW-ONSET April 182023 11:13am S/P [facility] 04/18May 08, 2024 9 :12am INT LABS May 08, 2024 9 :55am PAIN- COPY PCP May 18, 2024 9 :51am HYPOXIA INFLUENZA A May 26, 2024 1 :59am HYPOXIA INFLUENZA A May 26, 2024 3 :09am HYPOXIA INFLUENZA A May 27, 2024 7 :33am HYPOXIA INFLUENZA A May 28, 2024 1 0:26am SOB/CP June 19, 2024 11:19am SOB, CHF July 16, 2024 9:3 3am Chief Complaint Admit Date HYPOXIA INFLUENZA A May 26, 2024 1 :59am HYPOXIA INFLUENZA A May 26, 2024 3 :09am HYPOXIA INFLUENZA A May 27, 2024 7 :33am HYPOXIA INFLUENZA A May 28, 2024 1 0:26am SOB/CP June 19, 2024 11:19am SOB, CHF July 16, 2024 9:3 3am 1 M FU/See Clinical Note July 23, 2024 2:16pm Reason for Visit Admit Date CHF (congestive heart failure), NYHA cla ss III May 26, 2024 1:59am Essential hypertension May 26 1:59am Hypothyroidism May 26, 2024 1 :59am Hypoxia May 26, 2024 1 :59am Influenza A May 26, 2024 1 :59am Cardiomyopathy June 19, 2024 11:19am CHF (congestive heart failure), NYHA cla ss III June 19, 2024 11:19am Essential hypertension June 19 11:19am Cardiomyopathy July 23, 2024 2:16 pm Essential hypertension July 23, 2024 2 :16pm Chief Complaint Admit Date SOB, CHF July 16, 2024 9:3 3am 1 M FU/See Clinical Note July 23, 2024 2:16pm SOB November 02, 2024 12:4 4pm RIGHT SHOULDER PAIN November 04, 2024 4:13 pm Reason for Visit Admit Date Cardiomyopathy July 23, 2024 2:16 pm Essential hypertension July 23, 2024 2 :16pm Chief Complaint Admit Date SOB, CHF July 16, 2024 9:3 3am 1 M FU/See Clinical Note July 23, 2024 2:16pm SOB November 02, 2024 12:4 4pm RIGHT SHOULDER PAIN November 04, 2024 4:13 pm 3 M FU November 13, 2024 3:17 pm Reason for Visit Admit Date Cardiomyopathy July 23, 2024 2:16 pm Essential hypertension July 23, 2024 2 :16pm Cardiomyopathy November 13, 2024 3:17 pm Essential hypertension November 13, 2024 3 :17pm Chief Complaint Admit Date RIGHT SHOULDER PAIN November 04, 2024 4:13 pm 3 M FU November 13, 2024 3:17 pm 3 M FU February 10, 2025 1 1:21am Reason for Visit Admit Date Cardiomyopathy November 13, 2024 3:17 pm Essential hypertension November 13, 2024 3 :17pm Cardiomyopathy February 10, 2025 1 1:21am Essential hypertension February 10 11:21am Family History Relationship Condition Age at Onset Recorded Date/T veronica mother History of deep venous thrombosis Unknown Hypertension Unknown father Malignant neoplasm Unknown sister Coronary artery disease Unknown History of coronary artery bypass surgery Unknown Advance Directives Advance Directive Response Recorded Date/ Time Advance Directives Yes November 15 8:21am Living Will No December 16 1:14pm Power of Docking Saw Operator No December 16 1:14pm Advance Directive Response Recorded Date/ Time Advance Directives Yes November 15 7:21am Living Will No December 16 12:14pm Power of Docking Saw Operator No December 16 12:14pm Advance Directive Response Recorded Date/ Time Living Will No April 17 12:34am Power of Docking Saw Operator No April 17, 2024 12:34am Living Will Yes May 26 4:25am Power of Docking Saw Operator Yes May 26, 2024 4:25am Name of Medical Power of Docking Saw Operator Dereck May 26, 2024 4:25am Advance Directives Yes November 15 8:21am Advance Directive Response Recorded Date/ Time Living Will No April 17 12:34am Do you have a Healthcare Power of Docking Saw Operator? No April 17, 2024 12:34am Living Will Yes May 26 4:25am Do you have a Healthcare Power of Docking Saw Operator? Yes May 26, 2024 4:25am Name of Medical Power of Docking Saw Operator Dereck May 26, 2024 4:25am Advance Directives Yes November 15 8:21am Advance Directive Response Recorded Date/ Time Living Will Yes May 26 4:25am Do you have a Healthcare Power of Docking Saw Operator? Yes May 26, 2024 4:25am Name of Medical Power of Docking Saw Operator Dereck May 26, 2024 4:25am Advance Directives Yes November 15 8:21am Advance Directive Response Recorded Date/ Time Advance Directives Yes November 15 8:21am Advance Directive Response Recorded Date/ Time Advance Directives Yes November 15 7:21am Summary Purpose Additional Source Comments Goals (unrecognized section and content) Goals may be documented in a n alternate sectionGoals may be documented in an alternate sectionGoals may be documented in an alternate sectionGoals may be documented in an alternate sectionGoals may be documented in an alternate sectionGoals may be documented in an alternate sectionGoals may be documented in an alternate sectionGoals may be documented in an alternate sectionGoals may be documented in an alternate sectionGoals may be documented in an alternate sectionGoals may be documented in an alternate sectionGoals may be documented in an alternate section Care Teams (unrecognized sec tion and content) Team Status: Active Member Role Status Dates Dr. Mariposa Parker DO Family Provider Active Dr. Mariposa Parker DO Primary Care Provider Active Team Status: Inactive Member Role Status Dates Dr. Mariposa Parker DO Primary Care Provide r, Attending Provider, Referring Provider Active Team Status: Inactive Member Role Status Dates Dr. Mariposa Parker DO Primary Care Provider Active Dr. Mel Maurer MD Attending Provider, Referring Provider Active Team Status: Active Member Role Status Dates Dr. Mariposa Parker DO Family Provider Active Haydee Hernandez NP-C Primary Care Provider Active Team Status: Active Member Role Status Dates Haydee Hernandez NP-C Primary Care Provide r, Attending Provider, Referring Provider Active Team Status: Inactive Member Role Status Dates TESS LewisC Primary Care Provide r, Attending Provider, Referring Provider Active Team Status: Inactive Member Role Status Dates Haydee Hernandez NP-C Primary Care Provider Active Dr. Mel Maurer MD Attending Provider Active Team Status: Inactive Member Role Status Dates Dr. Mariposa Parker DO Primary Care Provider, Attending P onofre Active Team Status: Active Member Role Status Dates Dr. Mariposa Parker DO Primary Care Provide r, Attending Provider, Referring Provider Active Team Status: Active Member Role Status Dates Dr. Mariposa Parker DO Primary Care Provider Active Team Status: Inactive Member Role Status Dates Dr. Mariposa Parker DO Primary Care Provider Active Start: April 07, 2024 End: April 07, 2024 TAVIA Lewis Attending Provider Active St art: April 07, 2024 End: April 07, 2024 TAVIA Lewis Referring Provider Active St art: April 07, 2024 End: April 07, 2024 Team Status: Inactive Member Role Status Dates Dr. Mariposa Parker DO Primary Care Provider Active Start: April 16, 2024 End: April 18, 2024 Dr. Reynaldo Hernandez MD Referring Provider Active Start: April 16, 2024 End: April 18, 2024 Dr. Reynaldo Hernandez MD Emergency Provider Active Start: April 16, 2024 End: April 18, 2024 Dr. Christian White DO Admit Provider Active Start: April 16, 2024 End: April 18, 2024 Dr. Christian White DO Other Provider Active Start: April 16, 2024 End: April 18, 2024 Dr. Wilian Yang MD Other Provider Active Start : April 16, 2024 End: April 18, 2024 Dr. Saulo Chávez DO Attending Provider Active Start: April 16, 2024 End: April 18, 2024 Team Status: Active Member Role Status Dates Dr. Mariposa Parker DO Primary Care Provider Active Start: April 17, 2024 Dr. Wilian Yang MD Attending Provider Active S tart: April 17, 2024 Team Status: Active Member Role Status Dates Dr. Mariposa Parker DO Primary Care Provider Active Start: April 17, 2024 Dr. Reynaldo Hernandez MD Emergency Provider Active Start: April 17, 2024 Dr. Christian White DO Admit Provider Active Start: April 17, 2024 Dr. Christian White DO Other Provider Active Start: April 17, 2024 Dr. Wilian Yang MD Other Provider Active Start : April 17, 2024 Dr. Saulo Chávez DO Attending Provider Active Start: April 17, 2024 Dr. Saulo Chávez DO Other Provider Active S tart: April 17, 2024 Team Status: Active Member Role Status Dates Dr. Mariposa Parker DO Primary Care Provider Active Start: April 18, 2024 Dr. Reynaldo Hernandez MD Referring Provider Active Start: April 18, 2024 Dr. Reynaldo Hernandez MD Emergency Provider Active Start: April 18, 2024 Dr. Christian White DO Admit Provider Active Start: April 18, 2024 Dr. Christian White DO Other Provider Active Start: April 18, 2024 Dr. Wilian Yang MD Attending Provider Active S tart: April 18, 2024 Dr. Wilian Yang MD Other Provider Active Start : April 18, 2024 Dr. Saulo Chávez DO Other Provider Active S tart: April 18, 2024 Team Status: Active Member Role Status Dates Dr. Mariposa Parker DO Primary Care Provider Active Start: April 18, 2024 Dr. Reynaldo Hernandez MD Emergency Provider Active Start: April 18, 2024 Dr. Christian White DO Admit Provider Active Start: April 18, 2024 Dr. Christian White DO Other Provider Active Start: April 18, 2024 Dr. Wilian Yang MD Other Provider Active Start : April 18, 2024 Dr. Saulo Chávez DO Attending Provider Active Start: April 18, 2024 Dr. Saulo Chávez DO Other Provider Active S tart: April 18, 2024 Team Status: Inactive Member Role Status Dates Dr. Mariposa Parker DO Primary Care Provider Active Start: May 08, 2024 End: May 08, 2024 Dr. Mariposa Parker DO Referring Provider Active St art: May 08, 2024 End: May 08, 2024 MARICRUZ Schofield Attending Provider Active Start: May 08, 2024 End: May 08, 2024 Team Status: Inactive Member Role Status Dates Dr. Mariposa Parker DO Primary Care Provider Active Start: May 08, 2024 End: May 08, 2024 Sofia ALCANTARA PA Attending Provider Active Start: May 08, 2024 End: May 08, 2024 Sofia ALCANTARA PA Referring Provider Active Start: May 08, 2024 End: May 08, 2024 Team Status: Inactive Member Role Status Dates Dr. Mariposa Parker DO Primary Care Provider Active Start: May 18, 2024 End: May 18, 2024 Dr. Mel Maurer MD Attending Provider Active Start: May 18, 2024 End: May 18, 2024 Dr. Mel Maurer MD Referring Provider Active Start: May 18, 2024 End: May 18, 2024 Team Status: Inactive Member Role Status Dates Dr. Mariposa Parker DO Primary Care Provider Active Start: May 26, 2024 End: May 28, 2024 Dr. Kali Ya DO Emergency Provider Active Start: May 26, 2024 End: May 28, 2024 Dr. Meredith Mcgee MD Admit Provider Active St art: May 26, 2024 End: May 28, 2024 Dr. Meredith Mcgee MD Referring Provider Active Start: May 26, 2024 End: May 28, 2024 Dr. Meredith Mcgee MD Other Provider Active St art: May 26, 2024 End: May 28, 2024 Dr. Christian Blevins MD Attending Provider Active Start: May 26, 2024 End: May 28, 2024 Team Status: Active Member Role Status Dates Dr. Mariposa Parker DO Primary Care Provider Active Start: May 26, 2024 Dr. Kali Ya DO Emergency Provider Active Start: May 26, 2024 Dr. Meredith Mcgee MD Admit Provider Active St art: May 26, 2024 Dr. Meredith Mcgee MD Attending Provider Active Start: May 26, 2024 Dr. Meredith Mcgee MD Other Provider Active St art: May 26, 2024 Team Status: Active Member Role Status Dates Dr. Mariposa Parker DO Primary Care Provider Active Start: May 27, 2024 Dr. Kali Ya DO Emergency Provider Active Start: May 27, 2024 Dr. Meredith Mcgee MD Admit Provider Active St art: May 27, 2024 Dr. Meredith Mcgee MD Other Provider Active St art: May 27, 2024 Dr. Christian Blevins MD Attending Provider Active Start: May 27, 2024 Dr. Christian Blevins MD Other Provider Active Star t: May 27, 2024 Team Status: Active Member Role Status Dates Dr. Mariposa Parker DO Primary Care Provider Active Start: May 28, 2024 Dr. Kali Ya DO Emergency Provider Active Start: May 28, 2024 Dr. Meredith Mcgee MD Admit Provider Active St art: May 28, 2024 Dr. Meredith Mcgee MD Other Provider Active St art: May 28, 2024 Dr. Christian Blevins MD Attending Provider Active Start: May 28, 2024 Dr. Christian Blevins MD Other Provider Active Star t: May 28, 2024 Team Status: Inactive Member Role Status Dates Dr. Mariposa Parker DO Primary Care Provider Active Start: June 17, 2024 End: June 17, 2024 Dr. Mariposa Parker DO Attending Provider Active St art: June 17, 2024 End: June 17, 2024 Dr. Mariposa Parker DO Referring Provider Active St art: June 17, 2024 End: June 17, 2024 Team Status: Inactive Member Role Status Dates Dr. Mariposa Parker DO Primary Care Provider Active Start: June 19, 2024 End: June 19, 2024 Dr. Mariposa Parker DO Referring Provider Active St art: June 19, 2024 End: June 19, 2024 Sofia Pereyra PA, PA Attending Provider Active Start: June 19, 2024 End: June 19, 2024 Team Status: Inactive Member Role Status Dates Dr. Mariposa Parker DO Primary Care Provider Active Start: July 03, 2024 End: July 03, 2024 Sofia Pereyra PA, PA Attending Provider Active Start: July 03, 2024 End: July 03, 2024 Sofia Pereyra PA, PA Referring Provider Active Start: July 03, 2024 End: July 03, 2024 Team Status: Inactive Member Role Status Dates Dr. Mariposa Parker DO Primary Care Provider Active Start: July 16, 2024 End: July 16, 2024 Sofia Pereyra PA, PA Attending Provider Active Start: July 16, 2024 End: July 16, 2024 Sofia Pereyra PA, PA Referring Provider Active Start: July 16, 2024 End: July 16, 2024 Team Status: Active Member Role Status Dates Dr. Mariposa Parker DO Primary Care Provider Active Start: July 16, 2024 Dr. Wilian Yang MD Attending Provider Active S tart: July 16, 2024 Team Status: Inactive Member Role Status Dates Dr. Mariposa Parker DO Primary Care Provider Active Start: July 23, 2024 End: July 23, 2024 Dr. Mariposa Parker DO Referring Provider Active St art: July 23, 2024 End: July 23, 2024 Sofia Pereyra PA, PA Attending Provider Active Start: July 23, 2024 End: July 23, 2024 Team Status: Inactive Member Role Status Dates Dr. Mariposa Parker DO Primary Care Provider Active Start: September 11, 2024 End: September 11, 2024 TAVIA Lewis Attending Provider Active St art: September 11, 2024 End: September 11, 2024 Haydee Hernandez NP-C Referring Provider Active St art: September 11, 2024 End: September 11, 2024 Team Status: Active Member Role/Relationship Status Dates Dr. Mariposa Parker DO Primary Care Provider Active Team Status: Inactive Member Role/Relationship Status Dates Dr. Mariposa Parker DO Primary Care Provider Active Start: July 16, 2024 End: July 16, 2024 Sofia Pereyra PA, PA Attending Provider Active Start: July 16, 2024 End: July 16, 2024 Sofia Pereyra PA, PA Referring Provider Active Start: July 16, 2024 End: July 16, 2024 Team Status: Active Member Role/Relationship Status Dates Dr. Mariposa Parker DO Primary Care Provider Active Start: July 16, 2024 Dr. Wilian Yang MD Attending Provider Active S tart: July 16, 2024 Team Status: Inactive Member Role/Relationship Status Dates Dr. Mariposa Parker DO Primary Care Provider Active Start: July 23, 2024 End: July 23, 2024 Dr. Mariposa Parker DO Referring Provider Active St art: July 23, 2024 End: July 23, 2024 Sofia ALCANTARA, PA Attending Provider Active Start: July 23, 2024 End: July 23, 2024 Team Status: Inactive Member Role/Relationship Status Dates Dr. Mariposa Parker DO Primary Care Provider Active Start: September 11, 2024 End: September 11, 2024 Haydee Hernandez NP-C Attending Provider Active St art: September 11, 2024 End: September 11, 2024 Haydee Hernandez NP-C Referring Provider Active St art: September 11, 2024 End: September 11, 2024 Team Status: Active Member Role/Relationship Status Dates Dr. Mariposa Parker DO Primary Care Provider Active Start: November 02, 2024 Dr. Wilian Yang MD Attending Provider Active S tart: November 02, 2024 Team Status: Inactive Member Role/Relationship Status Dates Dr. Mariposa Parker DO Primary Care Provider Active Start: November 02, 2024 End: November 02, 2024 Sofia Pereyra PA, PA Attending Provider Active Start: November 02, 2024 End: November 02, 2024 Sofia ALCANTARA PA Referring Provider Active Start: November 02, 2024 End: November 02, 2024 Team Status: Active Member Role/Relationship Status Dates Dr. Mariposa Parker DO Primary Care Provider Active Start: November 04, 2024 Haydee Hernandez MALLET CUTTER-C Attending Provider Active St art: November 04, 2024 Haydee Hernandez MALLET CUTTER-C Referring Provider Active St art: November 04, 2024 Dr. Mel Maurer MD Other Provider Active St art: November 04, 2024 Team Status: Inactive Member Role/Relationship Status Dates Dr. Mariposa Parker DO Primary Care Provider Active Start: November 04, 2024 End: November 04, 2024 Haydee Hernandez NP-C Attending Provider Active St art: November 04, 2024 End: November 04, 2024 Haydee Hernandez MALLET CUTTER-C Referring Provider Active St art: November 04, 2024 End: November 04, 2024 Dr. Mel Maurer MD Other Provider Active St art: November 04, 2024 End: November 04, 2024 Team Status: Inactive Member Role/Relationship Status Dates Dr. Mariposa Parker DO Primary Care Provider Active Start: November 13, 2024 End: November 13, 2024 Dr. Mariposa Parker DO Referring Provider Active St art: November 13, 2024 End: November 13, 2024 Sofia ALCANTARA PA Attending Provider Active Start: November 13, 2024 End: November 13, 2024 Team Status: Active Member Role/Relationship Status Dates Dr. Mariposa Parker DO Primary care physician Active Team Status: Inactive Member Role/Relationship Status Dates Dr. Mariposa Parker DO Primary care physician Active Start: November 04, 2024 End: November 04, 2024 Haydee Hernandez NP-C Attending physician Active S tart: November 04, 2024 End: November 04, 2024 Haydee Hernandez NP-C Referring Provider Active St art: November 04, 2024 End: November 04, 2024 Dr. Mel Maurer MD Nurse Practitioner Active Start: November 04, 2024 End: November 04, 2024 Team Status: Inactive Member Role/Relationship Status Dates Dr. Mariposa Parker DO Primary care physician Active Start: November 13, 2024 End: November 13, 2024 Dr. Mariposa Parker , Referring Provider Active St art: November 13, 2024 End: November 13, 2024 MARICRUZ Schofield Attending physician Active Start: November 13, 2024 End: November 13, 2024 Team Status: Inactive Member Role/Relationship Status Dates Dr. Mariposa Parker DO Primary care physician Active Start: February 10, 2025 End: February 10, 2025 Dr. Mariposa Parker , Referring Provider Active St art: February 10, 2025 End: February 10, 2025 MARICRUZ Schofield Attending physician Active Start: February 10, 2025 End: February 10, 2025 INFORMATION SOURCE (unrecogn ized section and content) DATE CREATED AUTHOR 09/28/2024 [facility] DATE CREATED AUTHOR AUTHOR'S ORGANIZ ATION 02/10/2025 [facility] FOR RECORDS PERTAINING TO PATIENTS WHO ARE OR HAVE BEEN ENROLLED IN A CHEMICAL DEPENDENCY/SUBSTANCEABUSE PROGRAM, SOME INFORMATION MAY BE OMITTED. This clinical summary was aggregated from multiple sources. Caution should be exercised in using it in the provision of clinical care. This summary normalizes information from multiple sources, and as a consequence, information in this document may materially change the coding, format and clinical context of patient data. In addition, data may be omitted in some cases. CLINICAL DECISIONS SHOULD BE BASED ON THE PRIMARY CLINICAL RECORDS. [employer] provides no warranty or guarantee of the accuracy or completeness of information in this document.
[2025-03-27 14:31] VITALS: BP 162/61; PULSE 67; RESP 18; TEMP 36.6; O2SAT 98
[2025-03-27 15:12] VITALS: BMI 32.0
--- NOTE | 2025-03-27 19:05 | NURSING ---
Plaquenil 200mg PO BID on HOLD per DC instructions for a few weeks. Medication was ordered and given on MS3. Updated Dr. Zuniga. ADIEL to resume medication. VORB.
--- NOTE | 2025-03-27 19:53 | HP.PCM_ITS ---
HPI - General General Date of Admission: 03/27/25 Date of Service: 03/29/25 Chief Complaint: Here for rehabilitation. HPI Narrative SHIRA CHEW, is a 79 Female who presents with followin03/16/2025 [facility] ED abdominal pain. Abdominal pain, nausea/vomiting, diarrhea, fever. Morphine, Zofran, 1 liter IV fluid given. CT abdomen/pelvis shows free air. Zosyn IV given, consult General Surgery. 03/16/2025 Admit [facility]. 03/16/2025 Dr. Calvin performed exploratory laparoscopy converted to open laparotomy. 03/17/2025 Sore over incision, no nausea, no vomiting. Bowel perforation not identified. Drain, NPO, antibiotics, serial abdominal exams. 03/18/2025 OOB to chair, nausea. NPO, D5 for hypoglycemia, serial exams. Serial imaging, continue antibiotics. 03/19/2025 OOB in chair, passed flatus, abdominal pain improved. Draining serous fluid, hypoglycemia resolved, NPO. Contrast in ascending colon signals return of bowel function. 03/20/2025 Metoprolol IV for PVC's. Potassium chloride IV for hypokalemia, Ringer's lactate for low bicarb. 03/21/[address] shows free air. 03/21/2025 Dr. Calvin exploratory laparotomy with end colostomy. 03/22/2025 Pain improved with NG placement. Pressors for hypotension, Hold blood pressure medications, hold heart failure medications. Antibiotics IV for bowel peroration, TPN for nutrition. Synthroid 200mcg iv for hypothyroidism. 03/23/2025 Feeling better, some ostomy output, off pressors. Urine output improved, on room air. Continue NG, IV antibiotics, TPN. Potassium replaced. 03/24/2025 Looks much better, tired. NG out, able to eat, some ostomy output. Clear liquid diet, continue TPN. 03/25/2025 Feeling okay, mild nausea, O2 2L NC. Clear liquid, IV antibiotics, TPN. Stop sliding scale insulin, restart Farxiga for Diabetes Mellitus II/Chronic HFrEF. Restart Coreg, hold Aldactone, hold Entresto, give Lasix 20mg IV x 1 dose for chronic HFrEF. Restart home medications. 03/26/2025 No acute events overnight, regular diet, good ostomy output, minimal pain. Lasix 20mg iv x 1 dose for puffiness. 03/27/2025 Admit to TCU with debility, here for rehabilitation, strengthening, prior to discharge home alone. [facility] Medical History (Updated 03/27/25 @ 20:[address] Maninder Zuniga MD) History of congestive heart failure Cardiomyopathy Obesity (BMI 30.0-34.9) New onset of congestive heart failure Acute respiratory insufficiency Polymyalgia rheumatica Dyspnea on exertion Rheumatoid arthritis Gout Hypothyroidism Essential hypertension Type 2 diabetes mellitus Home Medications ?Medication ?Instructions ?Recorded ?Last Taken ?Type gabapentin 100 mg capsule 100 mg PO BID nerve pain 01/0503/20/25 History acetaminophen 500 mg tablet 500 mg PO Q6H PRN Pain 05/12 Unknown History albuterol sulfate 90 mcg/actuation 1 puff inhalation Q 4H PRN 04/16/24 03/21/25 History aerosol inhaler shortness of breath or wheez ing calcium 600 mg (as carbonate)-vit 1 tab PO DAILY suppl ement 04/16/24 Unknown History D3 20 mcg (800 unit) chewable tablet (Caltrate plus D) hydroxychloroquine 200 mg tablet 200 mg PO BID anti in flammatory 04/16/24 03/27/25 History (Plaquenil) Held on 03/27/25. Instructions: hold for a few weeks aspirin 81 mg tablet,delayed 81 mg PO QDAY heart healt h 05/08/24 05/25/24 History release (Adult Low Dose Aspirin) allopurinol 100 mg tablet 100 mg PO BID gout 07/23/24 03/27/25 History fluticasone fur. 200 mcg-umeclid 1 inh inhalation JEN Y asthma 07/23/24 Unknown History 62.5 mcg-vilant 25 mcg inhalat.powder (Trelegy Ellipta) dapagliflozin propanediol 10 mg 10 mg PO QAM heart #90 tabs 10/16/24 03/27/25 Rx tablet (Farxiga) levothyroxine 112 mcg tablet 112 mcg PO QDAY thyroid 0 11/13/24 03/27/25 History sacubitril 49 mg-valsartan 51 mg 1 tab PO BID heart #1 80 tabs 11/16/24 Unknown Rx tablet (Entresto) carvedilol 6.25 mg tablet 6.25 mg PO BID heart #180 t abs 02/10/25 03/20/25 Rx spironolactone 25 mg tablet 25 mg PO DAILY CHF #90 tab s 02/10/25 03/20/25 Rx multivitamin (Daily Multi-Vitamin 1 tab PO DAILY suppl ement 03/16/25 Unknown History tablet) oxycodone 5 mg tablet 5 - 10 mg (1 - 2 x 5 mg) PO Q4H 03/27/25 03/26/25 Rx PRN PRN Pain Score 4-10 #0 tabs Allergy/AdvReac Type Severity Reaction Status Date / Time amoxicillin AdvReac GI upset, Verified 03/16/25 08:31 Nausea and vomiting Family History Mother History of DVT (deep vein thrombosis) Hypertension Father Cancer Lung Sister CAD (coronary artery disease) History of coronary artery bypass surgery Other History of congestive heart failure Surgical History (Updated 03/27/25 @ 20:[address] Maninder Zuniga MD) History of colostomy History of left heart catheterization (LHC) (~11/15/20) H/O right knee surgery History of carpal tunnel surgery History of hysterectomy History of appendectomy Social History household members: none Smoking Status: Never smoker alcohol intake: current details: occasional substance use type: does not use caffeine: Yes Type: coffee Number of servings: 3 and tea ROS Constitutional Constitutional: Reports weakness; Denies chills, fever(s) or weight gain ENT HEENT: Denies headache(s), nasal congestion or nasal discharge Cardiovascular Cardiovascular: Denies chest pain or palpitations Respiratory/Chest Respiratory/Chest: Denies cough, excessive phlegm production or shortness of breath with exertion Gastrointestinal Gastrointestinal: Denies abdominal pain, nausea or vomiting Genitourinary Genitourinary: Denies dysuria Musculoskeletal Musculoskeletal: Denies joint pain or joint swelling Integumentary Integumentary: Denies rash or wounds Neurologic Neurologic: Denies focal weakness, numbness or tingling Psychiatric Psychiatric: Denies anxiety, auditory hallucinations, depression, homicidal ideation or suicidal ideation Vital Signs Vital Signs Vital Signs: 03/27/25 14:31 03/27/25 14:31 Temperature 97.9 F Temperature Source Temporal Pulse Rate 67 Pulse Rhythm Regular Pulse Strength Normal (2+) Respiratory Rate 18 Respiratory Effort Normal Non-Labored Respiratory Depth Normal Respiratory Pattern Normal Blood Pressure 162/61 H Blood Pressure Mean 94 Blood Pressure Source Monitor Pulse Ox 98 Oxygen Delivery Method Room Air Room Air Weight Weight: 84.567 kg Body Mass Index (BMI) 32.0 Physical Exam Const alert General Appearance: cooperative HEENT normocephalic Eyes PERRL and EOMs intact bilaterally Neck supple, no JVD and no carotid bruits Resp normal respiratory effort, normal air movement and clear to auscultation bilaterally Cardio regular rate and regular rhythm GI normal to inspection, nondistended, normoactive bowel sounds, non-tender and non-distended GI Narrative: Midline incision ifeanyi intact, colostomy. Extremity normal capillary refill General Extremity: Negative for edema Skin no rashes or lesions noted General Skin Exam: no breakdown Psych affect normal Appearance: appropriate Results Lab / Micro Data 03/28/25 06:14 03/28/25 06:14 Assessment & Plan Assessment/Plan (1) Debility: (2) Pneumoperitoneum: (3) Bowel perforation: (4) Status post colostomy: (5) Peritonitis: (6) Hypokalemia: (7) Acute respiratory failure with hypoxia: (8) Chronic HFrEF (heart failure with reduced ejection fraction): (9) Neuropathic pain: (10) Asthma: (11) Polymyalgia rheumatica: (12) Gout: (13) Hypothyroidism: QUALIFIERS: Hypothyroidism type: unspecified Qualified Code(s): E 03.9 - Hypothyroidism, unspecified PLAN: Plan 79 year old female with below past medical history hospitalized for pneumoperitoneum, bowel perforation, underwent end colostomy 03/21/2025, complicated by acute respiratory failure with hypoxia, hypokalemia, acute on chronic HFrEF, admitted to TCU with debility, here for rehabilitation, strengthening, prior to discharge home alone. * Debility - PT/OT. * Pain - Tylenol 1000mg q6 prn pain (1-3), Oxycodone 5mg to 10mg q4 prn. * Bowel - senna/colace 2 tablets bid, Magnesium citrate 300mL daily prn. * Adult immunization - Administer pneumonia vaccine, covid vaccine, flu vaccine as appropriate. * DVT prophylaxis - Lovenox 40mg sc daily. * Asthma - Wixela 250/50 1 puff q12, Incruse 1 puff daily, Albuterol 1 puff q4 prn. * Gout - Allopurinol 100mg bid. * CV prophylaxis - Aspirin 81mg daily. * Calcium deficiency - Calcium D 1 tablet daily. * Chronic HFrEF - Coreg 6.25mg bid, Entresto 49/51mg bid, Aldactone 25mg daily, Jardiance 25mg daily. * Neuropathic pain - Gabapentin 100mg bid. * Polymyalgia rheumatica - Plaquenil 200mg bidcm. * Hypothyroidism - Levothyroxine 112mcg daily. * Nutrition - MVI 1 tablet daily.
[2025-03-27] MEDS: Senna/Docusate Sodium 1 Tablet 2 TABLET PO (21:41)
[2025-03-27] MEDS: SACUBITRIL/VALSARTAN 49-51 MG TABLET 1 EACH PO (21:41)
[2025-03-27] MEDS: Fluticasone Propion/Salmeterol 250-50 Inhaler 1 PUFF INHALATION (21:41)
[2025-03-28 06:41] LABS: Hematocrit 38.8 % (37-47); Hemoglobin 12.1 g/dL (12.0-15.0); Immature Granulocytes Count 0.150 X10^3/uL (0.0-0.0); Mean Corp Hgb Conc 31.2 g/dL (32-36); Mean Corpuscular Volume 93.7 fL (81-99); Mean Platelet Vol. 11.3 fl (6.2-12.0); NRBC Flagged by Analyzer 0 % (0-5); Platelet Count 348 K/mm3 (150-450); RBC Distribution Width CV 14.4 % (11.6-14.6); RBC Distribution Width SD 48.9 fl (35.1-43.9); Red Blood Count 4.14 M/mm3 (4.2-5.4); White Blood Count 6.7 K/mm3 (4.4-11.0)
[2025-03-28 06:47] VITALS: RESP 16
[2025-03-28 07:00] LABS: Anion Gap 9 (5-15); BUN 13 mg/dL (4-19); BUN/Creat Ratio 16.5 RATIO (10-20); Calcium,Total 8.2 mg/dL (7.6-11.0); Carbon Dioxide 24.9 mmol/L (21.0-32.0); Chloride 106 mmol/L (98-108); Estimated Creatinine Clearance 58.28 ml/min (50-250); Glucose 77 mg/dL (70-99); Potassium 3.3 mmol/L (3.3-5.1)
[2025-03-28 09:05] VITALS: BP 133/83; PULSE 67; RESP 18; TEMP 36.7; O2SAT 99
[2025-03-28] MEDS: Aspirin E.C. 81 MG Tablet PO (10:54)
[2025-03-28] MEDS: SACUBITRIL/VALSARTAN 49-51 MG TABLET 1 EACH PO ×2 (10:55→21:18)
[2025-03-28] MEDS: Umeclidinium Bromide Inhaler 1 PUFF INHALATION (10:55)
[2025-03-28] MEDS: Senna/Docusate Sodium 1 Tablet 2 TABLET PO ×2 (10:57→21:18)
[2025-03-28] MEDS: Calcium Carb/Vitamin D 1 TABLET Tablet PO (10:57)
[2025-03-28] MEDS: Tuberculin,Purif.prot.deriv. 50 TU/ML Vial 0.1 ML ID (10:58)
[2025-03-28 15:32] VITALS: BP 132/58; PULSE 63; RESP 15; TEMP 36; O2SAT 95
--- NOTE | 2025-03-28 15:36 | NURSING ---
copy made of living will and medical power of trust and estates attorney- placed copy in chart and returned original to son
--- NOTE | 2025-03-28 20:45 | NURSING ---
Patient taken to radiology dept for Xray of abdomen
--- NOTE | 2025-03-28 20:56 | RAD_ITS ---
PROCEDURE: ABDOMEN SINGLE VIEW 03/28/2025 REASON FOR EXAM: NAUSEA TECHNIQUE: Procedure Code: RADABD Modality: DX Procedure: ABDOMEN SINGLE VIEW COMPARISON: Reviewed FINDINGS: Nonspecific nonobstructive bowel gas pattern. No free air. No abnormal intra- abdominal calcifications. Residual contrast is seen in the distal colon. RAD/Abdomen Single View IMPRESSION: As above. Reading Location: [facility]
[2025-03-28] MEDS: Fluticasone Propion/Salmeterol 250-50 Inhaler 1 PUFF INHALATION (21:18)
[2025-03-28] MEDS: Hydrocortisone 2.5% Crm 1 APPLIC TOPICAL (21:18)
--- NOTE | 2025-03-28 23:55 | PCA ---
This PAIN MEDICINE PHYSICIAN as well as the nurse both offered to help patient with a shower this evening. Patient stated that today was a busy day and she was too tired. She would like to take care of all that stuff in the morning.
[2025-03-29 08:16] VITALS: BP 154/59; PULSE 64; RESP 18; TEMP 36.6; O2SAT 99
[2025-03-29] MEDS: Aspirin E.C. 81 MG Tablet PO (08:30)
[2025-03-29] MEDS: Hydrocortisone 2.5% Crm 1 APPLIC TOPICAL ×2 (08:30→21:23)
[2025-03-29] MEDS: SACUBITRIL/VALSARTAN 49-51 MG TABLET 1 EACH PO ×2 (08:30→21:23)
[2025-03-29] MEDS: Senna/Docusate Sodium 1 Tablet 2 TABLET PO ×2 (08:32→21:23)
[2025-03-29] MEDS: Calcium Carb/Vitamin D 1 TABLET Tablet PO (08:32)
--- NOTE | 2025-03-29 11:30 | PHA.CONS_ITS ---
Documented by User: Masoud Carias 03/29/25 11:51 TCU RX Drug Regimen Review Subjective/Objective Subjective/Objective Subjective: TCU admission note. 79 year old female with below past medical history hospitalized for pneumoperitoneum, bowel perforation, underwent end colostomy 03/21/2025, complicated by acute respiratory failure with hypoxia, hypokalemia, acute on chronic HFrEF, admitted to TCU with debility, here for rehabilitation, strengthening, prior to discharge home alone. Objective: Allergies amoxicillin Adverse Reaction (Verified 03/16/25 08:31) GI upset, Nausea and vomiting Current Medications Generic Name Dose Route Start Last Admin Trade Name Freq PRN Reason Stop Dose Admin Acetaminophen 1,000 mg 03/27/25 20:12 03/27/25 21:54 Acetaminophen 500 Mg Tablet PO 1,000 mg Q6H PRN PRN Administration Pain Score 1-3 Albuterol Sulfate 1 puff 03/27/25 15:15 Albuterol Ih (6.7 Gm) 1 Puff Inhaler INHALATION Q4H PRN shortness of breath or wheezing Allopurinol 100 mg 03/27/25 22:00 03/29/25 08:34 Allopurinol 100 Mg Tablet PO 100 mg BID WANDA Administration Aspirin 81 mg 03/28/25 08:00 03/29/25 08:30 Aspirin E.C. 81 Mg Tablet PO 81 mg BREAKFAST WANDA Administration Calcium/Vitamin D 1 tablet 03/28/25 10:00 03/29/25 08:32 Calcium Carb/Vitamin D 1 Tablet Tablet PO 1 tablet DAILY WANDA Administration Carvedilol 6.25 mg 03/27/25 17:00 03/29/25 08:30 Carvedilol 6.25 Mg Tablet PO 6.25 mg BID WANDA Administration Protocol Empagliflozin 25 mg 03/28/25 10:00 03/29/25 08:31 Empagliflozin 25 Mg Tablet PO 25 mg DAILY WANDA Administration Enoxaparin Sodium 40 mg 03/28/25 06:00 03/29/25 05:45 Enoxaparin 40 Mg/0.4 Ml Syringe SC 40 mg DAILY@0600 WANDA Administration Gabapentin 100 mg 03/27/25 22:00 03/29/25 08:32 Gabapentin 100 Mg Capsule PO 100 mg BID WANDA Administration Hydrocortisone 1 applic 03/28/25 22:00 03/29/25 08:30 Hydrocortisone 2.5% Crm TOPICAL 1 applic BID [facility] Administration Protocol Hydroxychloroquine Sulfate 200 mg 03/27/25 22:00 03/29/25 08:30 Hydroxychloroquine 200 Mg Tablet PO 200 mg BIDCM [facility] Administration Levothyroxine Sodium 112 mcg 03/28/25 06:00 03/29/25 05:46 Levothyroxine 112 Mcg Tablet PO 112 mcg DAILY@0600 [facility] Administration Magnesium Citrate 300 ml 03/27/25 20:16 Magnesium Citrate 300 Ml PO DAILY PRN Constipation Multivitamins 1 tablet 03/28/25 10:00 03/29/25 08:31 Multivitamins,Therapeutic Tablet PO 1 tablet DAILY [facility] Administration Nystatin 1 applic 03/29/25 10:00 03/29/25 08:47 Nystatin Powder 15gm Bottle TOPICAL 1 applic BID [facility] Administration Protocol Ondansetron HCl 8 mg 03/28/25 17:45 Ondansetron Odt 4 Mg Tablet PO Q8H PRN PRN NAUSEA Oxycodone HCl 5 - 10 mg 03/27/25 14:22 Oxycodone 5 Mg Tablet PO Q4H PRN PRN Pain Score 4-10 Sacubitril/Valsartan 1 each 03/27/25 22:00 03/29/25 08:30 Sacubitril/Valsartan 49-51 Mg Tablet PO 1 each BID [facility] Administration Fluticasone/Salmeterol 1 puff 03/27/25 22:00 03/29/25 08:33 Fluticasone Propion/Salmeterol 250-50 Inhaler INHALATION Not Given Q12 [facility] Senna/Docusate Sodium 2 tablet 03/27/25 22:00 03/29/25 08:32 Senna/Docusate Sodium 1 Tablet PO 2 tablet BID [facility] Administration Spironolactone 25 mg 03/28/25 10:00 03/29/25 08:30 Spironolactone 25 Mg Tablet PO 25 mg DAILY [facility] Administration Protocol Tuberculin PPD 0.1 ml 04/04/25 10:00 Tuberculin,Purif.Prot.Deriv. 50 Tu/Ml Vial ID 04/04/25 10:01 X1 ONE Umeclidinium Pettus 1 puff 03/28/25 10:00 03/29/25 08:33 Umeclidinium Pettus Inhaler INHALATION Not Given DAILY [facility] Problem List Gout (Acute) Polymyalgia rheumatica (Acute) Asthma (Acute) Neuropathic pain (Acute) Chronic HFrEF (heart failure with reduced ejection fraction) (Chronic) Acute respiratory failure with hypoxia (Acute) Hypokalemia (Acute) Peritonitis (Acute) Status post colostomy (Acute) Pneumoperitoneum (Acute) Debility (Acute) Bowel perforation (Acute) Hypothyroidism (Acute) Vital Signs Temp Pulse Resp BP Pulse Ox O2 Del Method 97.8 F 64 18 154/59 H 99 Room Air 03/29/25 08:16 03/29/25 08:16 03/29/25 08:16 03/29/25 08:16 03/29/25 08:16 03/29/25 08:41 Oxygen Delivery Method Room Air Weight: 84.567 kg Body Mass Index (BMI) 32.0 Sodium 140 mmol/L (133-145) 03/28/25 06:14 Potassium 3.3 mmol/L (3.3-5.1) 03/28/25 06:14 Chloride 106 mmol/L (98-108) 03/28/25 06:14 Carbon Dioxide 24.9 mmol/L (21.0-32.0) 03/28/25 06:14 Anion Gap 9 (5-15) 03/28/25 06:14 BUN 13 mg/dL (4-19) 03/28/25 06:14 Creatinine 0.81 mg/dL (0.70-1.20) 03/28/25 06:14 Est GFR (MDRD) Non-Af 73 (>60) 03/28/25 06:14 BUN/Creatinine Ratio 16.5 RATIO (10-20) 03/28/25 06:14 Glucose 77 mg/dL (70-99) 03/28/25 06:14 Assessment/Plan: 1. Pain: acetaminophen 1000 mg PO Q6H PRN pain (1-3), oxycodone 5-10 mg PO Q4H PRIN pain. The patient has used 1 PRN dose of acetaminophen and 0 PRN doses of oxycodone so far this admission. Please continue to monitor pain levels, PRN medication usage, LFTs (AST/ALT = 15/10 U/L on 03/24/25), for constipation, respiratory depression, dizziness/drowsiness, and for syncope/ataxia/falls. 2. Bowel: senna/docusate 2 tablets PO BID, magnesium citrate 300 mL PO daily PRN constipation. The patient has not required any PRN doses of magnesium citrate so far this admission and the patient's last bowel movement was on 03/28/25. Please continue to monitor for PRN medication usage, bowel movements, constipation and diarrhea. 3. DVT prophylaxis: enoxaparin 40 mg SC daily. Please continue to monitor for s/s of a DVT such as pain/erythema/swelling in an extremity, renal function (serum creatinine = 0.81 mg/dL with creatinine clearance ~ 58 mL/min on 03/28/25), for s/s of bleeding/excessive bruising, hemoglobin levels (Hgb = 12.1 g/dL on 03/28/25), and platelet counts (Plt = 348 K/mm3 on 03/28/25). 4. Chronic HFrEF: carvedilol 6.25 mg PO BID, empagliflozin 25 mg PO daily, sacub itril/valsartan 49/51 mg PO BID, spironolactone 25 mg PO daily. Please continue to monitor for s/s of heart failure exacerbation such as shortness of breath, JVD and lower extremity edema, ejection fraction (last EF = 40% on 11/02/24), blood pressures (recent range = 127-162/56-83 mmHg), heart rates (recent range = 63-69 beats/min), for fatigue, renal function (serum creatinine = 0.81 mg/dL with creatinine clearance ~ 58 mL/min on 03/28/25), glucose levels (BG = 77 mg/dL on 03/28/25), for s/s of genitourinary infections, for s/s of dehydration, for angioedema, potassium levels (K = 3.3 mmol/L on 03/28/25), and for s/s of orthostasis. 5. Asthma: umeclidinium bromide 1 puff daily, wixela 250/50 1 puff BID, albuterol inhaler 1 puff Q4H PRN shortness of breath/wheezing. The patient has not required any PRN doses of albuterol so far this admission. Please continue to monitor for s/s of an asthma exacerbation such as shortness of breath and coughing, for PRN medication usage, and for s/s of oral thrush. 6. Gout: allopurinol 100 mg PO BID. Please continue to monitor for joint pain especially in the large toe, for uric acid levels (no recent uric acid levels documented), and renal function (serum creatinine = 0.81 mg/dL with creatinine clearance ~ 58 mL/min on 03/28/25). 7. Neuropathic pain: gabapentin 100 mg PO BID. Please continue to monitor for nerve pain, dizziness/drowsiness, syncope/ataxia/falls, renal function (serum creatinine = 0.81 mg/dL with creatinine clearance ~ 58 mL/min on 03/28/25), and for lower extremity edema. 8. Polymyalgia rheumatica: hydroxychloroquine 200 mg PO BID with meals. Please continue to monitor for joint pains, for eye health, white blood cell counts (WBC = 6.7 K/mm3 on 03/28/25), hemoglobin levels (Hgb = 12.1 g/dL on 03/28/25), and platelets (Plt = 348 K/mm3 on 03/28/25). 9. CV prophylaxis: aspirin 81 mg PO daily. Please continue to monitor for s/s of stroke and heart attack, for GI distress with aspirin administration, for s/s of bleeding/excessive bruising, hemoglobin levels (Hgb = 12.1 g/dL on 03/28/25), and platelets (Plt = 348 K/mm3 on 03/28/25). 10. Hypothyroidism: levothyroxine 112 mcg PO daily. Please continue to monitor thyroid hormone levels (TSH = 0.178 uIU/mL with T4 = 1.70 ng/dL on 03/08/25), and for s/s of hypo/hyperthyroidism. 11. Calcium deficiency: calcium carbonate/vitamin D 1 tablet PO daily. Please continue to monitor calcium levels (Ca= 8.2 mg/dL on 03/28/25), and for s/s of hypocalcemia. 12. Nausea: ondansetron 8 mg PO Q8H PRN nausea. The patient has not required any PRN doses of ondansetron so far this admission. Please continue to monitor for s/s of nausea and or PRN medication administration. 13. Skin irritation/rash/tinea corporis: hydrocortisone 2.5% 1 application topically BID, nystatin powder 1 application topically BID. Please continue to monitor for resolution or rash and tinea corporis and for skin irritation. 14. Nutrition: multivitamin tablet PO daily. Please continue to monitor overall nutritional status. Assessment/Plan for indications treated with psychotropic medications: NA Medical chart and medication regimen reviewed. The following medication irregularities or issues were identified: No recommendations for resident at this time. Date Date of Note: 03/29/25 Documented by User: Dr. Maninder Zuniga MD 03/29/25 13:04 TCU RX Drug Regimen Review Provider Comments Provider responsibility Provider Comments to Recommendations by Pharmacy Agree
--- NOTE | 2025-03-29 12:35 | NURSING ---
Offered covid vaccine, VIS provided. Resident declines.
--- NOTE | 2025-03-29 14:48 | CASEMGMT ---
Social Work SW met with patient to complete initial assessment. Introduced self and role. Verified/updated contacts. Discussed code status and pt wishes to be DNR-CCA WITH Intubation. Nursing notified. SW educated to [facility] insurance with NRD 04/01 and continued stay is not guaranteed with each review;requires a 3-day notice for DC. Pt's goal is to return home alone. SW will continue to follow for DC planning. Sherin Best GERIATRIC PHYSICIAN MANAGER FINANCIAL PLANNING
--- NOTE | 2025-03-29 14:58 | CHAPLAIN ---
Type of Pastoral Visit _c__ Initial Visit ___ Follow-up Visit ___ On-call Visit ___ General Patient Visit ___ Spiritual Assessment ___ Family Conference ___ Bereavement ___ Rapid Response ___ Code Blue ___ Other (describe below) Pastoral Care Referral From _c__ Patient ___ Family ___ Nurse ___ Physician ___ Used Car Salesperson ___ Coffee Brewer ___ Other (describe below) Sacrament/Intervention _x__ Active listening ___ Anointing ___ Moravian ___ Bereavement ___ Communion ___ Judi exploration ___ _x__ Life review _x__ Prayer ___ Reconciliation ___ Sacrament of Sick _x__ Supportive presence ___ Wedding ___ Other (describe below) Pastoral Comments patient is welcoming and explains her situation; pt acknowledges some concerns about going home and shares some anxiety with that as well as disappointment in being away from family (sister is going through grief at this time); pt also acknowledges that she has had a blessed life, even as a , due to good family and judi in God; pt enjoys being with grandchildren and great grandchildren; prayer asked for and given
--- NOTE | 2025-03-29 15:34 | WOUNDNOTE ---
Pt currently up with therapy. will plan to change ostomy appliance with patient tomorrow.
[2025-03-29] MEDS: Fluticasone Propion/Salmeterol 250-50 Inhaler 1 PUFF INHALATION (21:24)
[2025-03-30 08:34] VITALS: BP 128/50; PULSE 76; RESP 16; TEMP 36.2; O2SAT 97
[2025-03-30] MEDS: Umeclidinium Bromide Inhaler 1 PUFF INHALATION (08:41)
[2025-03-30] MEDS: Calcium Carb/Vitamin D 1 TABLET Tablet PO (08:42)
[2025-03-30] MEDS: Aspirin E.C. 81 MG Tablet PO (08:42)
[2025-03-30] MEDS: SACUBITRIL/VALSARTAN 49-51 MG TABLET 1 EACH PO ×2 (08:42→21:37)
[2025-03-30] MEDS: Hydrocortisone 2.5% Crm 1 APPLIC TOPICAL ×2 (08:47→21:38)
[2025-03-30 09:39] VITALS: BMI 31.3
--- NOTE | 2025-03-30 11:47 | NURSING ---
Colostomy bag changed d/t medial 9 o'clock leak near midline incision. Educated pt, this nurse demonstrated cutting of flange & using no sting barrier prior to bag/flange placement. will continue teaching of emptying/burping bag. educated importance of monitoring bag throughout day to be sure it does not fill up with too much air or stool. pt verbalized understanding. pt up in chair eating lunch at this time. call light in reach.
[2025-03-30 11:55] VITALS: RESP 16
--- NOTE | 2025-03-30 14:46 | WOUNDNOTE ---
Had planned to change appliance with patient again today, but pt had a leak this am so NIAT Walker had changed the appliance with patient. in to assess the appliance and incision. incision is well approximated with ifeanyi in place. no erythema noted. appliance with very small amount of loose brown stool in bag. reminded patient again how to burp the bag and reviewed how to empty and clean the pouch. discussed with nursing to continue education when the appliance needs emptied, etc. so patient can feel comfortable with it at home. will continue to encourage patient as well. pt very appreciative of care.
[2025-03-30 17:24] VITALS: BP 120/63; PULSE 65
[2025-03-30] MEDS: Senna/Docusate Sodium 1 Tablet 2 TABLET PO (21:38)
[2025-03-31] MEDS: Aspirin E.C. 81 MG Tablet PO (08:25)
[2025-03-31] MEDS: SACUBITRIL/VALSARTAN 49-51 MG TABLET 1 EACH PO ×2 (08:26→21:53)
[2025-03-31] MEDS: Umeclidinium Bromide Inhaler 1 PUFF INHALATION (08:27)
[2025-03-31] MEDS: Calcium Carb/Vitamin D 1 TABLET Tablet PO (08:27)
[2025-03-31] MEDS: Hydrocortisone 2.5% Crm 1 APPLIC TOPICAL ×2 (08:29→21:54)
[2025-03-31] MEDS: Senna/Docusate Sodium 1 Tablet 2 TABLET PO ×2 (08:32→21:53)
--- NOTE | 2025-03-31 09:04 | CASEMGMT ---
Social Work IDT met with patient for care plan meeting. Pt denied having family present. Discussed patient's progress in PT/OT/SN/RDN. Educated to [facility] insurance with NRD 04/01 and continued stay is not guaranteed with each review. Provided pt/family with written communication of insurance process and copay coverage during stay. Pt to begin training with nursing on new colostomy and drains. Pt's goal is to return home alone. Pt will need a FWW and HHC at [place]. to coordinate. No other issues noted. SW will continue to follow. Sherin Best SILHOUETTE ARTIST WIRE SAW OPERATOR
--- NOTE | 2025-03-31 11:58 | NURSING ---
Machine Sole Leveler Note; Activity Asset: Carolina Jimenez is independent in her choice of daily activities w/reminders. She prefers in room reading and watching tv over group at this time. Her family will visits and bring her items she may need. She welcomes visits from the social media assistant and therapy dog when avaliable. Staff will remind her of weekly activities and respect her right to say no.
[2025-03-31 16:00] VITALS: BP 125/50; PULSE 70; RESP 14; TEMP 36.4; O2SAT 97
[2025-04-01] MEDS: Umeclidinium Bromide Inhaler 1 PUFF INHALATION (10:06)
[2025-04-01] MEDS: Calcium Carb/Vitamin D 1 TABLET Tablet PO (10:07)
[2025-04-01] MEDS: SACUBITRIL/VALSARTAN 49-51 MG TABLET 1 EACH PO ×2 (10:07→21:36)
[2025-04-01] MEDS: Aspirin E.C. 81 MG Tablet PO (10:08)
[2025-04-01] MEDS: Hydrocortisone 2.5% Crm 1 APPLIC TOPICAL ×2 (10:09→21:42)
[2025-04-01] MEDS: Senna/Docusate Sodium 1 Tablet 2 TABLET PO ×2 (10:14→21:40)
--- NOTE | 2025-04-01 13:58 | WOUNDNOTE ---
In to do more ostomy teaching with patient. pt is now up ad [place]. pt into the bathroom. pt was able to empty the ostomy appliance with minimal assistance. pt was able to demonstrate how to empty and clean the end of the appliance. pt back into the chair. assisted pt in changing the appliance. patient was able to remove the appliance. watched this nurse clean the skin and measure and cut opening. pt placed paste ring around stoma and was able to place the flange with minimal assistance. Pt had some slight difficulty snapping the pouch onto the flange. may try a 1 piece appliance with patient next week as she says her right shoulder needs repaired so it is difficult for her sometimes moving that shoulder much. pt very appreciative of care. will continue education.
[2025-04-01 15:58] VITALS: BP 117/46; PULSE 82; RESP 24; TEMP 36.4; O2SAT 96
--- NOTE | 2025-04-01 16:03 | CASEMGMT ---
Social Work SW completed BIMS () and PHQ-2 () for MDS assessment. Pt expressed some anxiety with returning home and having the new colostomy. Pt is home alone and fully independent in good health prior. Pt expressed apprehension with lifestyle changes. SW provided supportive listening and validated feelings. SW encouraged pt continue to learn and ask questions during stay to improve comfortability with returning home. SW offered resources for house cleaning services, private duty THERMOFORMING OPERATOR to assist with household tasks or personal care support, medical alert, home delivered meals; educated to grocery delivery service. Pt accepting of resources. Pt stated her gdtr is a nurse and plans to be supported as well. SW educated to coordinating skilled [facility] PT/OT/SN at [place] to assist with the transition. SW encouraged ongoing teaching from nursing on colostomy to improve pt's confident with caring for colostomy. Pt agreed and appreciative. Sherni Best CLEAN IN PLACES OPERATOR IN SERVICE COORDINATOR
--- NOTE | 2025-04-02 03:54 | NURSING ---
administered 0600 medications at this time per pt request.
[2025-04-02 06:00] LABS: Hematocrit 35.7 % (37-47); Hemoglobin 11.0 g/dL (12.0-15.0); Immature Granulocytes Count 0.050 X10^3/uL (0.0-0.0); Mean Corp Hgb Conc 30.8 g/dL (32-36); Mean Corpuscular Volume 94.2 fL (81-99); Mean Platelet Vol. 11.6 fl (6.2-12.0); NRBC Flagged by Analyzer 0 % (0-5); Platelet Count 266 K/mm3 (150-450); RBC Distribution Width CV 15.3 % (11.6-14.6); RBC Distribution Width SD 51.9 fl (35.1-43.9); Red Blood Count 3.79 M/mm3 (4.2-5.4); White Blood Count 6.4 K/mm3 (4.4-11.0)
[2025-04-02 06:30] LABS: Anion Gap 11 (5-15); BUN 8 mg/dL (4-19); BUN/Creat Ratio 10.3 RATIO (10-20); Calcium,Total 7.9 mg/dL (7.6-11.0); Carbon Dioxide 24.7 mmol/L (21.0-32.0); Chloride 107 mmol/L (98-108); Estimated Creatinine Clearance 56.93 ml/min (50-250); Glucose 85 mg/dL (70-99); Potassium 3.3 mmol/L (3.3-5.1)
[2025-04-02 09:30] VITALS: BP 136/46; PULSE 90; RESP 16; TEMP 36.7; O2SAT 98
[2025-04-02] MEDS: Calcium Carb/Vitamin D 1 TABLET Tablet PO (09:35)
[2025-04-02] MEDS: Aspirin E.C. 81 MG Tablet PO (09:35)
[2025-04-02] MEDS: SACUBITRIL/VALSARTAN 49-51 MG TABLET 1 EACH PO ×2 (09:35→21:28)
[2025-04-02] MEDS: Umeclidinium Bromide Inhaler 1 PUFF INHALATION (09:35)
[2025-04-02] MEDS: Hydrocortisone 2.5% Crm 1 APPLIC TOPICAL ×2 (09:36→21:28)
[2025-04-02] MEDS: Senna/Docusate Sodium 1 Tablet 2 TABLET PO ×2 (09:40→21:32)
--- NOTE | 2025-04-02 09:43 | NURSING ---
pt able to empty own colostomy pouch this am with supervision of staff and wipe end of bag to close. pt feeling more confident with emptying.
[2025-04-02 13:55] VITALS: PULSE 66; RESP 17; O2SAT 95
[2025-04-02 21:27] VITALS: BP 149/62; PULSE 86
[2025-04-03 09:02] VITALS: BP 132/56; PULSE 75; RESP 16; TEMP 36.8; O2SAT 97
[2025-04-03] MEDS: Aspirin E.C. 81 MG Tablet PO (09:04)
[2025-04-03] MEDS: SACUBITRIL/VALSARTAN 49-51 MG TABLET 1 EACH PO ×2 (09:04→20:56)
[2025-04-03] MEDS: Umeclidinium Bromide Inhaler 1 PUFF INHALATION (09:05)
[2025-04-03] MEDS: Hydrocortisone 2.5% Crm 1 APPLIC TOPICAL ×2 (09:05→20:57)
[2025-04-03] MEDS: Calcium Carb/Vitamin D 1 TABLET Tablet PO (09:06)
[2025-04-03] MEDS: Senna/Docusate Sodium 1 Tablet 2 TABLET PO ×2 (09:07→20:55)
[2025-04-04 09:15] VITALS: BP 142/61; PULSE 72; RESP 16; TEMP 37.2; O2SAT 95
[2025-04-04] MEDS: Aspirin E.C. 81 MG Tablet PO (09:18)
[2025-04-04] MEDS: SACUBITRIL/VALSARTAN 49-51 MG TABLET 1 EACH PO ×2 (09:19→21:59)
[2025-04-04] MEDS: Umeclidinium Bromide Inhaler 1 PUFF INHALATION (09:19)
[2025-04-04] MEDS: Hydrocortisone 2.5% Crm 1 APPLIC TOPICAL (09:19)
[2025-04-04] MEDS: Calcium Carb/Vitamin D 1 TABLET Tablet PO (09:20)
[2025-04-04] MEDS: Tuberculin,Purif.prot.deriv. 50 TU/ML Vial 0.1 ML ID (11:50)
[2025-04-04 16:43] VITALS: BP 135/54; PULSE 67
[2025-04-04] MEDS: Senna/Docusate Sodium 1 Tablet 2 TABLET PO (21:57)
[2025-04-05] MEDS: Aspirin E.C. 81 MG Tablet PO (08:21)
[2025-04-05] MEDS: Senna/Docusate Sodium 1 Tablet 2 TABLET PO (08:21)
[2025-04-05] MEDS: SACUBITRIL/VALSARTAN 49-51 MG TABLET 1 EACH PO ×2 (08:21→20:07)
[2025-04-05] MEDS: Calcium Carb/Vitamin D 1 TABLET Tablet PO (08:21)
[2025-04-05] MEDS: Hydrocortisone 2.5% Crm 1 APPLIC TOPICAL (08:23)
--- NOTE | 2025-04-05 09:29 | NURSING ---
Senior Hr Business Partner Note; MDS for 04/04/2025 Complete
[2025-04-05] MEDS: Umeclidinium Bromide Inhaler 1 PUFF INHALATION (09:39)
[2025-04-05 14:37] VITALS: BP 137/55; PULSE 77; RESP 17; TEMP 36.8; O2SAT 97
--- NOTE | 2025-04-05 15:38 | WOUNDNOTE ---
Pt was able to change the ostomy appliance almost independently. only needed a little bit of assistance. pt has been emptying the appliance independently and is feeling very confident with that. pt to be discharge on 04/11/25. will plan to change the appliance with patient again on Saturday. pt very appreciative of care and education. stoma is measuring approx 1 3/4 now. see wound/stoma photo.
--- NOTE | 2025-04-05 15:40 | WOUNDNOTE ---
wound/stoma photo: abdomen
[2025-04-06 09:23] VITALS: BP 129/59; PULSE 75; RESP 16; TEMP 36.2; O2SAT 95
[2025-04-06] MEDS: Umeclidinium Bromide Inhaler 1 PUFF INHALATION (09:25)
[2025-04-06] MEDS: SACUBITRIL/VALSARTAN 49-51 MG TABLET 1 EACH PO ×2 (09:26→20:34)
[2025-04-06] MEDS: Aspirin E.C. 81 MG Tablet PO (09:26)
[2025-04-06] MEDS: Calcium Carb/Vitamin D 1 TABLET Tablet PO (09:26)
[2025-04-06] MEDS: Senna/Docusate Sodium 1 Tablet 2 TABLET PO ×2 (09:27→20:34)
[2025-04-06 11:32] VITALS: BMI 30.3
--- NOTE | 2025-04-06 11:41 | WOUNDNOTE ---
Jessica removed from midline abdominal incision per Dr Torres's order. pt tolerated well. no drainage noted. incision well approximated. some mild redness noted to the inferior incision. appears to be irritation from rubbing on pants. will monitor. Dr Torres aware that patient will be discharging home on 04/11/25. pt originally had a follow up appt on 04/12/25, but Dr Calvin stated that pt can follow up 2 weeks after discharge from TCU. Pt aware as well as Alicia, Linoleum Layer.
[2025-04-06 16:58] VITALS: BP 144/61; PULSE 72
--- NOTE | 2025-04-07 09:41 | MDS.RN ---
Information for the MDS was obtained from review of the clinical record, interview of resident, staff, and direct observation of resident?s care.
[2025-04-07] MEDS: Aspirin E.C. 81 MG Tablet PO (10:16)
[2025-04-07] MEDS: SACUBITRIL/VALSARTAN 49-51 MG TABLET 1 EACH PO ×2 (10:17→22:31)
[2025-04-07] MEDS: Hydrocortisone 2.5% Crm 1 APPLIC TOPICAL ×2 (10:17→22:31)
[2025-04-07] MEDS: Umeclidinium Bromide Inhaler 1 PUFF INHALATION (10:18)
[2025-04-07] MEDS: Senna/Docusate Sodium 1 Tablet 2 TABLET PO (10:19)
[2025-04-07] MEDS: Calcium Carb/Vitamin D 1 TABLET Tablet PO (10:19)
[2025-04-07 14:37] VITALS: BP 142/65; PULSE 79; RESP 16; TEMP 36.6; O2SAT 95
[2025-04-08 08:18] VITALS: BP 116/68; PULSE 73; RESP 16; TEMP 36.9; O2SAT 95
[2025-04-08] MEDS: SACUBITRIL/VALSARTAN 49-51 MG TABLET 1 EACH PO ×2 (08:24→23:09)
[2025-04-08] MEDS: Umeclidinium Bromide Inhaler 1 PUFF INHALATION (08:24)
[2025-04-08] MEDS: Aspirin E.C. 81 MG Tablet PO (08:24)
[2025-04-08] MEDS: Calcium Carb/Vitamin D 1 TABLET Tablet PO (08:25)
[2025-04-08] MEDS: Senna/Docusate Sodium 1 Tablet 2 TABLET PO (08:26)
[2025-04-08 10:00] VITALS: PULSE 68; RESP 16; O2SAT 96
--- NOTE | 2025-04-08 16:10 | CASEMGMT ---
Social Work SW spoke with pt at bedside. Informed this worker has not received outcome from pt's insurance update yet. To plan ahead, SW provided list of skilled HHC agencies within geographical area, INN with insurance, that include quality and resource data via [employer] guide. Pt to review and notify this worker of preferences. Pt inquired about DC date as she thought it was 12/. SW denied that no DC date has been set yet, but if the insurance would issue a DC today, it would provide a 3-day notice, and DC would be 12/. However, if it is issued tomorrow, DC would be 12/. Pt expressed understanding. SW offered to set DC date if pt wants. Pt denied and will await outcome from insurance. SW explained IDT is recommending additional support in the home for pt at DC d/t identified cognitive impairments, and inquired who would that be. Pt stated she was doing well prior home alone. SW acknowledged and reminded pt ST has completed an eval which noted some higher level cognitive deficits that would support supervision with medication and finance management. Recommending daily check-ins to ensure meds are being set up/taken appropriately and someone to oversee finances to ensure accuracy. Pt expressed understanding and her family can assist with that. SW noted. SW will keep pt updated on insurance outcome. Sherin Best NURSING HOME PHYSICIAN HEALTH NAVIGATOR
[2025-04-09 06:02] LABS: Hematocrit 34.1 % (37-47); Hemoglobin 10.8 g/dL (12.0-15.0); Immature Granulocytes Count 0.020 X10^3/uL (0.0-0.0); Mean Corp Hgb Conc 31.7 g/dL (32-36); Mean Corpuscular Volume 92.9 fL (81-99); Mean Platelet Vol. 11.8 fl (6.2-12.0); NRBC Flagged by Analyzer 0 % (0-5); Platelet Count 221 K/mm3 (150-450); RBC Distribution Width CV 15.9 % (11.6-14.6); RBC Distribution Width SD 53.6 fl (35.1-43.9); Red Blood Count 3.67 M/mm3 (4.2-5.4); White Blood Count 5.2 K/mm3 (4.4-11.0)
[2025-04-09 06:22] LABS: Anion Gap 9 (5-15); BUN 10 mg/dL (4-19); BUN/Creat Ratio 12.0 RATIO (10-20); Calcium,Total 8.3 mg/dL (7.6-11.0); Carbon Dioxide 25.2 mmol/L (21.0-32.0); Chloride 107 mmol/L (98-108); Estimated Creatinine Clearance 54.74 ml/min (50-250); Glucose 84 mg/dL (70-99); Potassium 3.5 mmol/L (3.3-5.1)
[2025-04-09 09:20] VITALS: BP 138/54; PULSE 68; RESP 17; TEMP 36.7; O2SAT 95
[2025-04-09] MEDS: SACUBITRIL/VALSARTAN 49-51 MG TABLET 1 EACH PO ×2 (09:31→21:34)
[2025-04-09] MEDS: Aspirin E.C. 81 MG Tablet PO (09:31)
[2025-04-09] MEDS: Umeclidinium Bromide Inhaler 1 PUFF INHALATION (09:31)
[2025-04-09] MEDS: Calcium Carb/Vitamin D 1 TABLET Tablet PO (09:32)
[2025-04-09] MEDS: Senna/Docusate Sodium 1 Tablet 2 TABLET PO ×2 (09:33→21:34)
--- NOTE | 2025-04-09 13:39 | CASEMGMT ---
Social Work Insurance issued LCD 04/11, DC 04/12 SW spoke with pt to discuss DC. SW provided NOMNC to pt and educated to appeal rights. Pt verbalized understanding and denied appeal. Pt is agreeable to DC. SW offered DC 04/11 and pt agreed as she will not be getting therapy 04/11 or 04/12 and her family is off work and transport/get her settled in. SW agreed to DC 04/11. Pt stated her DIL and gddtr will be checking in on pt. SW will have FWW delivered to the room from [facility]. Pt chose [facility] and [facility] as preferences. SW to send referrals. Pt appreciative. - SW sent referral to [facility] via [employer]. SW sent referral both [facility] agencies via [employer]Port. Plan: DC home alone 04/11, PT/OT/SN/RIC Best MSW GENERAL HOUSE WORKER
--- NOTE | 2025-04-09 14:26 | CASEMGMT ---
Social Work SW phoned son to inform of pt's DC 04/11 and ensure pt contacted son/DIL. Son confirmed. SW informed of new W and [facility] PT/OT/SN/SW. SW educated to [facility] findings from [facility] on 04/05, and recommendations for daily check-ins, accompaniment to Drs appts, double-checking pt's information/meds/finances, etc. Answered son's questions. SW educated PCP to follow and pt's deficits may resolve once she returns to her own environment, things aren't as overwhelming, and she creates a new routine, but PCP to follow if it does not improve. SW wanted to ensure son was informed and aware and there is additional support for the pt. Son appreciative, understanding and confirmed his and dtr will check-in. Sherin Best HEALTH CARE / MEDICAL JOB TITLES PRODUCT SCIENTIST
--- NOTE | 2025-04-09 14:28 | WOUNDNOTE ---
Pt was able to change ostomy appliance again pretty independently. only needed a small amount of assistance. there is still some yellow slough at the superior portion of the stoma and a few small granulomas noted. stoma again decreased in size. is now approx 1 1/2. there was some mild redness noted to the peristomal skin d/t the decrease. pt cleansed skin with warm water, pat dry, lightly dusted skin with stoma powder and applied skin prep. pt cut the appliance to size and placed the paste ring. Pt is currently using a 1 piece flat appliance. pt may need a convex appliance at some point, but stoma remains well budded at this time. pt denies further questions at this time. very appreciative of care.
--- NOTE | 2025-04-09 16:52 | PCM.DC.SUM ---
Providers Date of Admission: 03/27/25 Primary Care Physician: Dr. Mariposa Parker DO Consultations 03/28/25 05:02 Consult: Onc/Wound/mobile home mechanic Routine Comment: Reason for Consult:: New colostomy Reason For Visit: NAUSEA Diagnosis Discharge Diagnosis (1) Debility: Status: Acute Code(s): R53.81 - Other malaise (2) Pneumoperitoneum: Status: Acute Code(s): K66.8 - Other specified disorders of peritoneum (3) Bowel perforation: Status: Inactive Code(s): K63.1 - Perforation of intestine (nontraumatic) (4) Status post colostomy: Status: Acute Code(s): Z93.3 - Colostomy status (5) Peritonitis: Status: Acute Code(s): K65.9 - Peritonitis, unspecified (6) Hypokalemia: Status: Acute Code(s): E87.6 - Hypokalemia (7) Acute respiratory failure with hypoxia: Status: Acute Code(s): J96.01 - Acute respiratory failure with hypoxia (8) Chronic HFrEF (heart failure with reduced ejection fraction): Status: Chronic Code(s): I50.22 - Chronic systolic (congestive) heart failure (9) Neuropathic pain: Status: Acute Code(s): M79.2 - Neuralgia and neuritis, unspecified (10) Asthma: Status: Acute Code(s): J45.909 - Unspecified asthma, uncomplicated (11) Polymyalgia rheumatica: Status: Acute Code(s): M35.3 - Polymyalgia rheumatica (12) Gout: Status: Acute Code(s): M10.9 - Gout, unspecified (13) Hypothyroidism: Status: Acute Code(s): E03.9 - Hypothyroidism, unspecified Qualifiers: Hypothyroidism type: unspecified Qualified Code(s): E03.9 - Hypothyroidism, unspecified Plan 79 year old female with below past medical history hospitalized for pneumoperitoneum, bowel perforation, underwent end colostomy 03/21/2025, complicated by acute respiratory failure with hypoxia, hypokalemia, acute on chronic HFrEF, admitted to TCU with debility, here for rehabilitation, strengthening, prior to discharge home alone. Debility - PT/OT. Pain - Tylenol 1000mg q6 prn pain (1-3), Oxycodone 5mg to 10mg q4 prn. Bowel - senna/colace 2 tablets bid, Magnesium citrate 300mL daily prn. Adult immunization - Administer pneumonia vaccine, covid vaccine, flu vaccine as appropriate. DVT prophylaxis - Lovenox 40mg sc daily. Asthma - Wixela 250/50 1 puff q12, Incruse 1 puff daily, Albuterol 1 puff q4 prn. Gout - Allopurinol 100mg bid. CV prophylaxis - Aspirin 81mg daily. Calcium deficiency - Calcium D 1 tablet daily. Chronic HFrEF - Coreg 6.25mg bid, Entresto 49/51mg bid, Aldactone 25mg daily, Jardiance 25mg daily. Neuropathic pain - Gabapentin 100mg bid. Polymyalgia rheumatica - Plaquenil 200mg bidcm. Hypothyroidism - Levothyroxine 112mcg daily. Nutrition - MVI 1 tablet daily. Medications at Discharge Home Medications gabapentin 100 mg capsule 100 mg PO BID nerve pain 04/30/15 albuterol sulfate 90 mcg/actuation aerosol inhaler 1 puff inhalation Q4H PRN shortness of breath or wheezing 04/16/24 calcium 600 mg (as carbonate)-vit D3 20 mcg (800 unit) chewable tablet (Caltrate plus D) 1 tab PO DAILY supplement 04/16/24 hydroxychloroquine 200 mg tablet (Plaquenil) 200 mg PO BID anti inflammatory 04/16/24 aspirin 81 mg tablet,delayed release (Adult Low Dose Aspirin) 81 mg PO QDAY heart health 05/08/24 allopurinol 100 mg tablet 100 mg PO BID gout 07/23/24 fluticasone fur. 200 mcg-umeclid 62.5 mcg-vilant 25 mcg inhalat.powder (Trelegy Ellipta) 1 inh inhalation DAILY asthma 07/23/24 dapagliflozin propanediol 10 mg tablet (Farxiga) 10 mg PO QAM heart #90 tabs 10/16/24 levothyroxine 112 mcg tablet 112 mcg PO QDAY thyroid 11/13/24 sacubitril 49 mg-valsartan 51 mg tablet (Entresto) 1 tab PO BID heart #180 tabs 11/16/24 carvedilol 6.25 mg tablet 6.25 mg PO BID heart #180 tabs 02/10/25 spironolactone 25 mg tablet 25 mg PO DAILY CHF #90 tabs 02/10/25 multivitamin (Daily Multi-Vitamin tablet) 1 tab PO DAILY supplement 03/16/25 acetaminophen 500 mg tablet 1,000 mg (2 x 500 mg) PO Q6H PRN PRN Pain Score 1-3 #0 tabs 04/09/25 Hospital Course Operations - (See below.) Procedures None Summary of Care Provided Minutes Spent on Discharge: 35 Hospital Course: 79 year old female with below past medical history hospitalized for pneumoperitoneum, bowel perforation, underwent end colostomy 03/21/2025, complicated by acute respiratory failure with hypoxia, hypokalemia, acute on chronic HFrEF, admitted to TCU with debility, here for rehabilitation, strengthening, prior to discharge home alone. Discharge home alone 04/11/2025, [facility] PT/OT/SN/SW. Physical Exam Const alert General Appearance: cooperative HEENT normocephalic Eyes PERRL and EOMs intact bilaterally Neck supple, no JVD and no carotid bruits Resp normal respiratory effort, normal air movement and clear to auscultation bilaterally Cardio regular rate and regular rhythm GI normal to inspection, nondistended, normoactive bowel sounds, non-tender and non-distended GI Narrative: colostomy. Extremity normal capillary refill General Extremity: Negative for edema Skin no rashes or lesions noted General Skin Exam: no breakdown Psych affect normal Appearance: appropriate Weight / BMI Weight Weight: 80.24 kg Body Mass Index (BMI) 30.3 ABG / Lab / Microbiology Data 04/09/25 05:24 04/09/25 05:24 Laboratory: Laboratory Results - last 24 hr 04/09/25 05:24: WBC 5.2, RBC 3.67 L, Hgb 10.8 L, Hct 34.1 L, MCV 92.9, MCH 29.4, MCHC 31.7 L, RDW Std Deviation 53.6 H, RDW Coeff of Jonnathan 15.9 H, Plt Count 221, MPV 11.8, Immature Gran % (Auto) 0.400, Neut % (Auto) 48.3, Lymph % (Auto) 31.2, [place] % (Auto) 11.1 H, Eos % (Auto) 8.0 H, Baso % (Auto) 1.0, Absolute Neuts (auto) 2.5, Absolute Lymphs (auto) 1.63, Nucleated RBC % 0, Sodium 141, Potassium 3.5, Chloride 107, Carbon Dioxide 25.2, Anion Gap 9, BUN 10, Creatinine 0.84, Estim Creat Clear Calc 54.74, Est GFR (MDRD) Non-Af 70, BUN/Creatinine Ratio 12.0, Glucose 84, Calcium 8.3 Microbiology: Microbiology 04/06/25 06:30 Nasal Secretion SARS-CoV-2 Antigen (Rapid) - Final 04/04/25 05:25 Nasal Secretion SARS-CoV-2 Antigen (Rapid) - Final 04/02/25 03:40 Nasal Secretion SARS-CoV-2 Antigen (Rapid) - Final D/C Instructions Discharge Activity: Return to Normal Activity, May Shower and Use Walker Weight Bearing Status: Weight bearing as tolerated Call your doctor if you observe: Fever of 101 or Higher, Inability to urinate, Inability to have a bowel movement, Shortness of breath, Dizziness, Fainting spells, Swelling in the ankles, Chest pain and Uncontrolled pain DC O2, CPAP, BIPAP Needs Home O2 Discharge instructions: No Additional Instructions: Discharge home alone 04/11/2025, [facility] PT/OT/SN/SW. Please Follow Up With: Zoltan Calvin MD When: 2 weeks. Meaningful Use Info Meaningful Use Meaningful Use Diagnoses (Choose all that apply): None applicable Discharge Plan Admission Admit Date/Time: 03/27/25 14:13 Primary Reason for Your Visit: Debility. Attending Provider: Maninder Zuniga Chi Primary Care Provider: Mariposa Parker Instructions Additional Instructions / Restrictions: Discharge home alone 04/11/2025, [facility] PT/OT/SN/SW. Discharge Orders/Prescriptions Prescriptions: New acetaminophen 500 mg Tablet 1,000 mg PO Q6H PRN PRN (Reason: Pain Score 1-3) Qty: 0 0RF Continued aspirin [Adult Low Dose Aspirin] 81 mg tablet,delayed release (DR/EC) 81 mg PO QDAY Trelegy Ellipta 200-62.5-25 mcg blister with device 1 inh inhalation DAILY levothyroxine 112 mcg tablet 112 mcg PO QDAY carvedilol 6.25 mg tablet 6.25 mg PO BID Qty: 180 3RF spironolactone 25 mg tablet 25 mg PO DAILY Qty: 90 3RF gabapentin 100 MG capsule 100 mg PO BID Patient Comments: Caltrate 600 plus D 600 mg-20 mcg (800 unit) tablet,chewable 1 tab PO DAILY albuterol sulfate 90 mcg/actuation HFA aerosol inhaler 1 puff inhalation Q4H PRN (Reason: shortness of breath or wheezing) hydroxychloroquine [Plaquenil] 200 mg tablet 200 mg PO BID multivitamin [Daily Multi-Vitamin] Tablet 1 tab PO DAILY allopurinol 100 mg tablet 100 mg PO BID dapagliflozin propanediol [Farxiga] 10 mg tablet 10 mg PO QAM Qty: 90 3RF sacubitril-valsartan [Entresto] 49-51 mg tablet 1 tab PO BID Qty: 180 3RF Discontinued acetaminophen 500 mg tablet 500 mg PO Q6H PRN (Reason: Pain) oxycodone 5 mg Tablet 5 - 10 mg PO Q4H PRN PRN (Reason: Pain Score 4-10) Qty: 0 0RF Referrals / Follow Up: Mariposa Parker DO [Primary Care Provider, Family Practice] - Within 1 Week Referral Note: Transition Care Management (TCM) appointment. Disposition Disposition (needs filled in before D/C Order can be placed): Home Health Service
[2025-04-10] MEDS: Umeclidinium Bromide Inhaler 1 PUFF INHALATION (08:31)
[2025-04-10] MEDS: Aspirin E.C. 81 MG Tablet PO (08:31)
[2025-04-10] MEDS: Senna/Docusate Sodium 1 Tablet 2 TABLET PO (08:32)
[2025-04-10] MEDS: Hydrocortisone 2.5% Crm 1 APPLIC TOPICAL (08:33)
[2025-04-10] MEDS: SACUBITRIL/VALSARTAN 49-51 MG TABLET 1 EACH PO ×2 (08:36→20:34)
[2025-04-10] MEDS: Calcium Carb/Vitamin D 1 TABLET Tablet PO (08:36)
[2025-04-10 16:00] VITALS: BP 128/55; PULSE 76; RESP 18; TEMP 36.9; O2SAT 98
[2025-04-11] MEDS: Calcium Carb/Vitamin D 1 TABLET Tablet PO (09:19)
[2025-04-11] MEDS: SACUBITRIL/VALSARTAN 49-51 MG TABLET 1 EACH PO (09:19)
[2025-04-11] MEDS: Aspirin E.C. 81 MG Tablet PO (09:19)
[2025-04-11] MEDS: Umeclidinium Bromide Inhaler 1 PUFF INHALATION (09:20)
[2025-04-11] MEDS: Senna/Docusate Sodium 1 Tablet 2 TABLET PO (09:22)
== END 2025-04-11 11:15 | disposition home health service (06) | DRG 949 ==
PROVIDERS: Admitting Provider Family Medicine Geriatric Medicine; PCP Family Medicine; Visit Provider Family Medicine Geriatric Medicine
DX: Z48.815 Encounter for surgical aftercare following surgery on the digestive system (principal); K63.1 Perforation of intestine (nontraumatic); K65.9 Peritonitis, unspecified; I50.22 Chronic systolic (congestive) heart failure; I42.9 Cardiomyopathy, unspecified; I11.0 Hypertensive heart disease with heart failure; E11.40 Type 2 diabetes mellitus with diabetic neuropathy, unspecified; J45.909 Unspecified asthma, uncomplicated; E03.9 Hypothyroidism, unspecified; M35.3 Polymyalgia rheumatica; Z93.3 Colostomy status; M10.9 Gout, unspecified; E58 Dietary calcium deficiency; Z79.84 Long term (current) use of oral hypoglycemic drugs; Z79.890 Hormone replacement therapy; Z79.899 Other long term (current) drug therapy
CPT/HCPCS: 36415; 74018; 80048; 85025; 87811; 92507; 92523; 97110; 97116; 97162; 97165; 97530; 97535; 97802